=== PATIENT | male | born 1940 | race African-American/Black ===

== ENCOUNTER 2019-07-21 03:34 | Inpatient (IN) | payer BC, MEDICARE ==
[2019-07-21] VITALS (7 sets, daily range): BP systolic 135–180; BP diastolic 68–90
[~2019-07-21] VITALS: Ht 165.1 cm; Wt 79.8 kg
--- NOTE | 2019-07-21 03:53 | NUR ---
ED Nurse Note: Patient was BIBA RA 834 from home, due to gen weakness. Patient states fell 4 days ago and was not able to get up. Patient presented weak, AAO x4, VSS at this time, dehydrated.
[2019-07-21 03:55] LABS: BASOPHILS % (AUTO) 3.1 % (0.0-2.0); EOSINOPHILS % (AUTO) 2.2 % (0.0-3.0); HEMATOCRIT 42.4 % (42.0-52.0); HEMOGLOBIN 14.3 G/DL (14.2-18.0); LYMPHOCYTES % (AUTO) 18.4 % (20.0-45.0); MEAN CORPUSCULAR VOLUME 92 FL (80-99); NEUTROPHILS % (AUTO) 68.4 % (45.0-75.0); PLATELET COUNT 329 K/UL (150-450); RED BLOOD COUNT 4.63 M/UL (4.70-6.10); RED CELL DISTRIBUTION WIDTH 11.4 % (11.6-14.8); WHITE BLOOD COUNT 7.9 K/UL (4.8-10.8)
[2019-07-21 04:03] LABS: ANION GAP 15 mmol/L (5-15); BLOOD UREA NITROGEN 47 mg/dL (7-18); CALCIUM 9.3 MG/DL (8.5-10.1); CARBON DIOXIDE 22 MMOL/L (21-32); CHLORIDE 101 MMOL/L (98-107); CREATININE 2.3 MG/DL (0.55-1.30); SODIUM 138 MMOL/L (136-145)
[2019-07-21 04:18] LABS: ALANINE AMINOTRANSFERASE 41 U/L (12-78); ALBUMIN 4.1 G/DL (3.4-5.0); ALBUMIN/GLOBULIN RATIO 0.9 (1.0-2.7); ALKALINE PHOSPHATASE 85 U/L (46-116); ASPARTATE AMINO TRANSFERASE 78 U/L (15-37); BILIRUBIN,TOTAL 1.2 MG/DL (0.2-1.0); CKMB 19.6 NG/ML (0.0-3.6); CREATINE KINASE 2257 U/L (26-308); PHOSPHORUS 4.4 MG/DL (2.5-4.9)
[2019-07-21 04:31] LABS: BILIRUBIN,DIRECT 0.2 MG/DL (0.0-0.3)
--- NOTE | 2019-07-21 04:32 | Emergency Room Report ---
History of Present Illness General Chief Complaint: Generalized Weakness Source: Patient, EMS Present Illness HPI 79-year-old male presents with generalized weakness, patient reports that 4 days ago, he felt very weak had to lie down on the floor and can get up, he has been lying on the floor for 4 days until neighbors called 911 he denies any chest pain shortness of breath he states he feels generalized weakness he is able to move all 4 extremities per the patient severity is moderate, constant no known aggravating or alleviating factors patient denies any fevers or chills Allergies: Coded Allergies: No Known Allergies (Unverified , 07/21/19) Patient History Past Medical History: see triage record Reviewed Nursing Documentation: PMH: Agreed; PSxH: Agreed Nursing Documentation-PMH Past Medical History: No Stated History Review of Systems All Other Systems: negative except mentioned in HPI Physical Exam Vital Signs Date Time Temp Pulse Resp B/P (MAP) Pulse Ox O2 Delivery O2 Flow Rate FiO2 07/21/19 03:26 98.4 86 20 180/90 (120) 98 Room Air Sp02 EP Interpretation: reviewed, normal General Appearance: well appearing, no apparent distress, alert Head: normocephalic, atraumatic Eyes: bilateral eye PERRL, bilateral eye EOMI ENT: uvula midline, dry mucus membranes Neck: supple, thyroid normal, supple/symm/no masses Respiratory: lungs clear, no respiratory distress, no retraction, no accessory muscle use Cardiovascular #1: normal peripheral pulses, regular rate, rhythm, no edema, no gallop, no murmur Gastrointestinal: non tender, soft, no guarding, no rebound Musculoskeletal: normal inspection Neurologic: alert, oriented x3 Psychiatric: mood/affect normal Skin: no rash, warm/dry Medical Decision Making Diagnostic Impression: Primary Impression: Episode of generalized weakness Additional Impressions: Dehydration Rhabdomyolysis Qualified Codes: M62.82 - Rhabdomyolysis JERMAINE (acute kidney injury) ER Course 79-year-old male found down, unable to get up without assistance Patient found to have rhabdomyolysis, fluid started, patient with JERMAINE Patient will be admitted to Dr. Dalton Laboratory Tests Test 07/21/19 03:43 07/21/19 04:04 White Blood Count 7.9 K/UL (4.8-10.8) Red Blood Count 4.63 M/UL (4.70-6.10) L Hemoglobin 14.3 G/DL (14.2-18.0) Hematocrit 42.4 % (42.0-52.0) Mean Corpuscular Volume 92 FL (80-99) Mean Corpuscular Hemoglobin 30.8 PG (27.0-31.0) Mean Corpuscular Hemoglobin Concent 33.7 G/DL (32.0-36.0) Red Cell Distribution Width 11.4 % (11.6-14.8) L Platelet Count 329 K/UL (150-450) Mean Platelet Volume 6.9 FL (6.5-10.1) Neutrophils (%) (Auto) 68.4 % (45.0-75.0) Lymphocytes (%) (Auto) 18.4 % (20.0-45.0) L Monocytes (%) (Auto) 8.0 % (1.0-10.0) Eosinophils (%) (Auto) 2.2 % (0.0-3.0) Basophils (%) (Auto) 3.1 % (0.0-2.0) H Prothrombin Time 10.6 SEC (9.30-11.50) Prothrombin Time INR 1.0 (0.9-1.1) PTT 27 SEC (23-33) Sodium Level 138 MMOL/L (136-145) Potassium Level 4.0 MMOL/L (3.5-5.1) Chloride Level 101 MMOL/L (98-107) Carbon Dioxide Level 22 MMOL/L (21-32) Anion Gap 15 mmol/L (5-15) Blood Urea Nitrogen 47 mg/dL (7-18) H Creatinine 2.3 MG/DL (0.55-1.30) H Estimate Glomerular Filtration Rate mL/min (>60) Glucose Level 103 MG/DL (74-106) Calcium Level 9.3 MG/DL (8.5-10.1) Phosphorus Level 4.4 MG/DL (2.5-4.9) Magnesium Level 2.1 MG/DL (1.8-2.4) Total Bilirubin 1.2 MG/DL (0.2-1.0) H Direct Bilirubin 0.2 MG/DL (0.0-0.3) Aspartate Amino Transferase (AST) 78 U/L (15-37) H Alanine Aminotransferase (ALT) 41 U/L (12-78) Alkaline Phosphatase 85 U/L (46-116) Total Creatine Kinase 2257 U/L (26-308) H Creatine Kinase MB 19.6 NG/ML (0.0-3.6) H Creatine Kinase MB Relative Index 0.8 Troponin I 0.027 ng/mL (0.000-0.056) Pro-B-Type Natriuretic Peptide 252 pg/mL (0-125) H Total Protein 8.7 G/DL (6.4-8.2) H Albumin 4.1 G/DL (3.4-5.0) Globulin 4.6 g/dL Albumin/Globulin Ratio 0.9 (1.0-2.7) L Lipase 177 U/L (73-393) Thyroid Stimulating Hormone (TSH) 1.263 uiU/mL (0.358-3.740) Free Thyroxine 1.07 NG/DL (0.76-1.46) Free Triiodothyronine 1.9 pg/mL (2.3-4.2) L Lactic Acid Level 2.10 mmol/L (0.4-2.0) H EKG Diagnostic Results EKG Time: 03:37 EP Interpretation: NSR, rate 78, QTc 460, no acute ST elevations, normal axis Rhythm Strip Diag. Results Rhythm Strip Time: 04:32 EP Interpretation: yes Rate: 76 Rhythm: NSR, no PVC's, no ectopy Chest X-Ray Diagnostic Results Chest X-Ray Diagnostic Results : Chest X-Ray Ordered: Yes # of Views/Limited/Complete: 1 View Indication: Other - weakness EP Interpretation: Yes Interpretation: no consolidation, no effusion, no pneumothorax, no acute cardiopulmonary disease Impression: No acute disease Electronically Signed by: Tico Lopez MD Last Vital Signs Date Time Temp Pulse Resp B/P (MAP) Pulse Ox O2 Delivery O2 Flow Rate FiO2 07/21/19 03:45 98.4 81 20 180/90 98 Room Air Disposition: ADMITTED INPATIENT Condition: Stable Referrals: [facility],REFERRING (PCP) Tico Lopez MD Jul 21, 2019 04:32
[2019-07-21] MEDS ORDERED: Labetalol 5mg/ml 20ml vial IV ONE (06:00)
--- NOTE | 2019-07-21 07:00 | NUR ---
ED Nurse Note: Received pt on bed, lying on supine position. Pt is AOx4; VSS except for elevated SBP of 187. Pt is calm and cooperative. Obtained urine specimen via straight cath; sent to labs. Latest SBP went to 167. Placed bed on low position.
--- NOTE | 2019-07-21 07:10 | NUR ---
HAND-OFF: Report given to ARELY Boss.
[2019-07-21 07:24] LABS: APPEARANCE,URINE CLEAR; BILIRUBIN, URINE NEGATIVE (NEGATIVE); COLOR,URINE PALE YELLOW; GLUCOSE, URINE (UA) NEGATIVE (NEGATIVE); KETONES,URINE 3+ (NEGATIVE); LEUKOCYTE ESTERASE ,URINE NEGATIVE (NEGATIVE); NITRITE,URINE NEGATIVE (NEGATIVE); PH,URINE 5 (4.5-8.0); PROTEIN,URINE 2+ (NEGATIVE); UROBILINOGEN,URINE NORMAL MG/DL (0.0-1.0)
--- NOTE | 2019-07-21 07:55 | NUR ---
ED Nurse Note: followed up lab. spoke with Odilia with the added orders
[2019-07-21] MEDS: Sodium Bicarbonate 50 ML in D5W 1000ml 1,000 ML IV SCH ×4 (08:20→22:45)
--- NOTE | 2019-07-21 08:22 | NUR ---
ED Nurse Note: spoke with Ravindra from lab to follow up with the addedd order for urine
--- NOTE | 2019-07-21 08:45 | NUR ---
ED Nurse Note: Dr. Dalton at bedside.
--- NOTE | 2019-07-21 08:59 | History & Physical ---
History and Physical History & Physicial dict dehydration JERMAINE rhabdo possible MM HTN Nikolas Dalton MD Jul 21, 2019 08:59
--- NOTE | 2019-07-21 09:07 | NUR ---
ED Nurse Note: Pt seen by Dr. Bethea.
[2019-07-21 10:15] LABS: ANION GAP 11 mmol/L (5-15); BLOOD UREA NITROGEN 38 mg/dL (7-18); CALCIUM 8.1 MG/DL (8.5-10.1); CARBON DIOXIDE 22 MMOL/L (21-32); CHLORIDE 107 MMOL/L (98-107); CREATINE KINASE 1772 U/L (26-308); CREATININE 1.9 MG/DL (0.55-1.30); POTASSIUM 3.6 MMOL/L (3.5-5.1); SODIUM 140 MMOL/L (136-145)
--- NOTE | 2019-07-21 11:00 | NUR ---
ED Nurse Note: Performed bladder scanner with 182ml residual.
--- NOTE | 2019-07-21 14:20 | NUR ---
ED Nurse Note: spoke with devonte joseph( landlord of the patient). with pt.'s permission, gave clinical updates to her. best number to reach her is @
--- NOTE | 2019-07-21 14:28 | NUR ---
TRANSFER TO FLOOR: Patient transferred to as ordered, per Krystle Whitaker Report given to Jovanny MCGEE. Belongings and medications given to receiving nurse. Family and or S/O informed of transfer.
--- NOTE | 2019-07-21 14:37 | Diagnostic Imaging Report ---
. Indication: Shortness of breath Technique: One view of the chest Comparison: none Findings: The right hemidiaphragm is elevated. The heart is upper limits of normal in size. There is some atelectasis at the left lung base. Lungs pleural spaces are otherwise clear. Impression: Left basilar atelectasis No acute process otherwise
--- NOTE | 2019-07-21 14:45 | History and Physical Report ---
DATE OF ADMISSION: 07/21/2019 HISTORY OF PRESENT ILLNESS: This 79-year-old man came to the emergency department by paramedics when his neighbors called 911. The patient states that he had to lie down on the floor and could not get up for the past 4 days. He could not get to a phone to call anyone. He has generalized weakness, but no specific complaints. He has no pain and no difficulty breathing. He has no nausea or vomiting. He has had nothing to eat or drink in 4 days. PAST MEDICAL HISTORY: He says he has not been to a doctor since 1963. He takes no medications and has no history of allergies or operations. He is and has 1 child with whom he is not in touch. REVIEW OF SYSTEMS: Otherwise unremarkable. PHYSICAL EXAMINATION: VITAL SIGNS: The blood pressure is elevated. GENERAL: He is well developed and appears well-nourished. HEENT: Mucous membranes are dry. The head is normocephalic. NECK: No jugular venous distention. CHEST: Clear. CARDIAC: Rhythm is regular without murmur or gallop. ABDOMEN: Soft and nontender. Liver and spleen not enlarged. EXTREMITIES: No clubbing, cyanosis, or edema. NEUROLOGIC: Alert and oriented. Moves all extremities. LABORATORY STUDIES: Notable for elevated BUN, creatinine, and CPK. Total protein is elevated. Urinalysis shows some ketones and protein. The white count is normal. Platelets are normal. Hemoglobin is 14.3. Lactate was elevated, but improved to normal. Albumin is 4.1. TSH is normal. IMPRESSION: 1. Dehydration. 2. Acute rhabdomyolysis. 3. Hyperproteinemia, possible myeloma. 4. Lactic acidosis, resolved. 5. Hypertension. PLAN: The patient will be given intravenous fluids and antihypertensives. Nephrology consultation was requested. Protein electrophoresis will be obtained. Nikolas Dalton M.D. DR: BEN JOB#: [id number] CC: Nikolas Dalton M.D.; Fax#: [phone]
--- NOTE | 2019-07-21 15:00 | Consultation ---
DATE OF CONSULTATION: 07/21/2019 NEPHROLOGY CONSULTATION CONSULTING PHYSICIAN: Arthur Bethea M.D. REFERRING PHYSICIAN: Nikolas Dalton M.D. REASON FOR CONSULTATION: Abnormal renal function. HISTORY OF PRESENT ILLNESS: The patient is a 79-year-old male, who has generally been in good health, lives by himself. He has not seen a doctor for quite some time. He apparently had a ground-level fall at home. He lives on the ground floor. Apparently for days, not eating or drinking, very weak and for this reason he was brought to the hospital and was found to have abnormal labs. ALLERGIES: None known. PAST SURGICAL HISTORY: Surgeries, denies. MEDICATIONS: No regular medications. He takes aspirin, p.r.n. HABITS: He is a nondrinker and nonsmoker. No use of illicit drugs. SYSTEM REVIEW: HEAD, EYES, EARS, NOSE, AND THROAT: Vision and hearing is good. ENDOCRINE: He is not aware of any diabetes or thyroid disease. PULMONARY: No asthma, TB, or chronic cough. CARDIAC: No angina or LA that he is aware of. GASTROINTESTINAL: He has not eaten for few days. Denies nausea, vomiting, or abdominal pain. GENITOURINARY: Denies dysuria, hematuria, or difficulty voiding. HEME-ONCOLOGY: Denies cancer or bleeding problems. MUSCULOSKELETAL: Denies chronic joint pain. NEUROLOGIC: Denies seizures, syncope, or stroke. PHYSICAL EXAMINATION: VITAL SIGNS: The patient was seen in the emergency room. His blood pressure was 233/107, has come to 167/68 with a pulse oximetry 100, heart rate 93, and temperature 98.4. HEAD, EYES, EARS, NOSE, AND THROAT: Sclerae are nonicteric. Ocular motions intact in all directions. Oral mucosa is slightly dry. NECK: No adenopathy or thyroid enlargement. LUNGS: Clear. HEART: Regular rhythm. No murmur. ABDOMEN: Soft without organomegaly or masses. GENITOURINARY: Penis and testes normal. EXTREMITIES: No edema, cyanosis, or clubbing. No evidence of trauma. NEUROLOGIC: He is alert and oriented. Cranial nerves are intact. No focal findings. PERTINENT LABORATORY DATA: White count 7.9, hemoglobin 14.3. Sodium 138, potassium 4, chloride 101, CO2 22, BUN 47, and creatinine 2.3. Glucose 103. Lactic acid 2.1 and 1.6 serially. Bilirubin 1.2. AST 78, ALT 41. CK 2257. Troponin 0.027. BNP 252. Albumin is 4.1. TSH 1.263. Urinalysis shows 0 to 2 white cells, 0 to 2 red cells per high-power field. Positive ketones, positive protein. The urine sodium 115, urine creatinine 125. IMPRESSION: 1. Acute kidney injury, likely from dehydration and/or rhabdomyolysis. 2. Ground-level fall. 3. Generalized weakness. 4. Incomplete database. 5. Abnormal urinalysis likely secondary to rhabdomyolysis. PLAN: The patient will get vigorous hydration with bicarbonate-containing fluids. We will monitor his I and O, serial labs, and follow closely in view of comorbidities. Arthur Bethea M.D. DR: PAOLA JOB#: [id number] CC:
--- NOTE | 2019-07-21 15:00 | NUR ---
NURSE NOTES: Late entry for 07/21/10 Received patient from ER. Patient is alert and oriented x2 @ this time, forgetful and unable to obtain past medical history.There is a family member in the contact but no phone number. Patient denies any pain or discomfort @ this time. orientation given about the unit, call light use, meal times, fall precautions, etc. Skin assessment done, no skin issue. All belongings were checked and accounted for. IV on right AC intact, no s/s of infiltration with IVF.Bed is in lowest position and locked, call light within reach, alarm is on due to h/o fall. Will continue plan of care.
[2019-07-21 17:30] LABS: ANION GAP 12 mmol/L (5-15); BLOOD UREA NITROGEN 35 mg/dL (7-18); CALCIUM 8.1 MG/DL (8.5-10.1); CARBON DIOXIDE 25 MMOL/L (21-32); CHLORIDE 108 MMOL/L (98-107); CREATINE KINASE 1687 U/L (26-308); CREATININE 1.7 MG/DL (0.55-1.30); POTASSIUM 3.4 MMOL/L (3.5-5.1); SODIUM 145 MMOL/L (136-145)
--- NOTE | 2019-07-21 17:30 | NUR ---
NURSE NOTES: Per ER nurse Karyn,she collected urine and swab for influenza A&B but no specimen in the lab. RN sent influenza A&B swab to lab and still waiting for urine specimen for protein electroph random. patient urinated earlier but he was incontinent, unable to collect urine.Will follow up.
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
--- NOTE | 2019-07-21 18:55 | NUR ---
NURSE NOTES: RN left a message to Dr. Dalton for medication for anxiety since patient is combative and anxious. Awaiting for return call.
--- NOTE | 2019-07-21 19:00 | NUR ---
NURSE NOTES: Unable to administer potassium po due to patient is combative and agitated.
--- NOTE | 2019-07-21 19:35 | NUR ---
HAND-OFF: Report given to Cipriano and endorsed to monitor patient's behavior and follow up with doctor.
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
--- NOTE | 2019-07-21 22:00 | NUR ---
NURSE NOTES: Pt is very agitated and uncooperative. Pt refused to take Seroquel and potassium chloride tablet po that was ordered despite education and encouragement. D5W with sodium bicarbonate running at 200ml/hr. Bilateral soft wrist restraints on, restrains site asymptomatic, pt offered food hydration. Pt allowed to have range of motion. Pt is still agitated and uncooperative during interactions. Pt will be repositioned frequently. Pt refused SCDs. Pt will be monitored for safety.
[2019-07-22] VITALS (7 sets, daily range): BP systolic 159–234; BP diastolic 87–116
[2019-07-22] MEDS: Sodium Bicarbonate 50 ML in D5W 1000ml 1,000 ML IV SCH ×5 (02:15→22:23)
--- NOTE | 2019-07-22 05:28 | NUR ---
NURSE NOTES: Pt's BP 185/90. Dr. Cervantes is called, received order to give hydralazine 25mg po once.
[2019-07-22] MEDS ORDERED: HydrALAZINE 25mg tab ORAL ONE (05:30)
--- NOTE | 2019-07-22 05:37 | NUR ---
NURSE NOTES: Pt refused hydralazine 25mg po despite education and encouragement. Dr. Cervantes is aware.
--- NOTE | 2019-07-22 06:51 | NUR ---
NURSE NOTES: Dr. Bethea came to see the patient. Doctor made aware about pt's refusal to take oral BP Meds. Doctor said he will order some clonidine patch.
--- NOTE | 2019-07-22 07:25 | NUR ---
HAND-OFF: Report given to ARELY Kwong.
[2019-07-22 07:26] LABS: BASOPHILS % (AUTO) 3.5 % (0.0-2.0); EOSINOPHILS % (AUTO) 1.9 % (0.0-3.0); HEMATOCRIT 37.8 % (42.0-52.0); HEMOGLOBIN 13.1 G/DL (14.2-18.0); LYMPHOCYTES % (AUTO) 13.7 % (20.0-45.0); MEAN CORPUSCULAR VOLUME 91 FL (80-99); MONOCYTES % (AUTO) 12.8 % (1.0-10.0); NEUTROPHILS % (AUTO) 68.2 % (45.0-75.0); PLATELET COUNT 292 K/UL (150-450); RED BLOOD COUNT 4.17 M/UL (4.70-6.10); RED CELL DISTRIBUTION WIDTH 12.2 % (11.6-14.8); WHITE BLOOD COUNT 7.9 K/UL (4.8-10.8)
--- NOTE | 2019-07-22 07:53 | NUR ---
CASE MANAGEMENT: INITIAL REVIEW 79 YR OLD MALE BIBA FROM HOME CC: GENERALIZED WEAKNESS SI: RHABDOMYOLYSIS . JERMAINE . DEHYDRATION . FAILURE TO THRIVE . WEAKNESS 98.4 86 20 180/90 98% ON RA BUN 47 CREAT 2.3 TBIL 1.2 TCK 2257 CK-MB 19.6 BNP 252 IS:IVF NS BOLUS X3 IV HYDRALAZINE X1 IV LABETALOL X1 CXRAY X1 \: 4E MED SURG DCP: HOME WHEN MEDICALLY STABLE PLAN: IV HYDRATION CASE MANAGEMENT: REVIEW 07/22/19 SI: RHABDOMYOLYSIS . JERMAINE . DEHYDRATION . FAILURE TO THRIVE . WEAKNESS 98.8 84 20 220/110 95% ON RA CK 2240 K+ 3.3 BUN 21 CREAT 1.8 BG 132 TBIL 1.1 IS:IV NA BICARBONATE X1 CATAPRES TD QWK \: 4E MED SURG DCP: HOME WHEN MEDICALLY STABLE PLAN: CONT INTRAVENOUS FLUIDS CONT ANTIHYPERTENSIVE MEDS
--- NOTE | 2019-07-22 08:00 | Nephrology Progress Note ---
Assessment/Plan Problem List: (1) Hypertension, benign (2) Toxic metabolic encephalopathy (3) Gait abnormality (4) Rhabdomyolysis (5) JERMAINE (acute kidney injury) (6) Dehydration (7) Episode of generalized weakness Plan f/u lab, hydrate, mobilize, try to get coop to po meds Subjective Constitutional: Reports: weakness HEENT: Reports: no symptoms Genitourinary: Reports: no symptoms Neurologic/Psychiatric: Reports: other - confused and agitated Objective Objective Last 24 Hour Vital Signs Date Time Temp Pulse Resp B/P (MAP) Pulse Ox O2 Delivery O2 Flow Rate FiO2 07/22/19 05:37 185/90 07/22/19 04:00 98.8 86 19 185/90 (121) 96 07/22/19 00:00 97.8 84 19 159/87 (111) 97 07/21/19 21:00 Room Air 07/21/19 20:00 98.1 91 18 157/83 (107) 95 07/21/19 16:00 98.1 75 16 135/70 (91) 95 07/21/19 15:28 98.1 85 16 157/73 (101) 95 07/21/19 15:17 Room Air 07/21/19 14:28 98.4 76 18 156/77 98 Room Air 07/21/19 14:00 98.4 76 18 156/77 98 Room Air 07/21/19 08:00 98.4 93 26 167/68 100 Room Air Intake and Output 07/21/19 07/22/19 19:00 07:00 Intake Total 4100 ml 4440 ml Output Total 400 ml 1700 ml Balance 3700 ml 2740 ml Intake Oral 240 ml IV Total 4100 ml 3200 ml Other 1000 ml Output Urine Total 400 ml 1700 ml # Voids 3 Laboratory Tests 07/21/19 09:32: Sodium Level 140, Potassium Level 3.6, Chloride Level 107, Carbon Dioxide Level 22, Anion Gap 11, Blood Urea Nitrogen 38H, Creatinine 1.9H, Estimat Glomerular Filtration Rate , Glucose Level 109H, Calcium Level 8.1L, Total Creatine Kinase 1772H 07/21/19 16:04: Sodium Level 145, Potassium Level 3.4L, Chloride Level 108H, Carbon Dioxide Level 25, Anion Gap 12, Blood Urea Nitrogen 35H, Creatinine 1.7H, Estimat Glomerular Filtration Rate , Glucose Level 148H, Calcium Level 8.1L, Total Creatine Kinase 1687H 07/22/19 03:30: Urine Total Protein [Pending], Urine Albumin (%) [Pending], Urine Alpha-1- Globulins (%) [Pending], Urine Gugkr-8-Ukomvcqkg (%) [Pending], Urine Beta- Globulin (%) [Pending], Urine Gamma Globulin (%) [Pending], Ur Protein Electrophoresis M-Conrad [Pending], Urine Protein Electrophoresis Intrp [Pending] 07/22/19 07:07: Sodium Level [Pending], Potassium Level [Pending], Chloride Level [Pending], Carbon Dioxide Level [Pending], Blood Urea Nitrogen [Pending], Creatinine [ Pending], Estimat Glomerular Filtration Rate [Pending], Glucose Level [Pending] , Calcium Level [Pending], Total Creatine Kinase [Pending], White Blood Count 7.9, Red Blood Count 4.17L, Hemoglobin 13.1L, Hematocrit 37.8L, Mean Corpuscular Volume 91, Mean Corpuscular Hemoglobin 31.5H, Mean Corpuscular Hemoglobin Concent 34.7, Red Cell Distribution Width 12.2, Platelet Count 292, Mean Platelet Volume 6.6, Neutrophils (%) (Auto) 68.2, Lymphocytes (%) (Auto) 13.7L, Monocytes (%) (Auto) 12.8H, Eosinophils (%) (Auto) 1.9, Basophils (%) ( Auto) 3.5H, Total Bilirubin [Pending], Aspartate Amino Transf (AST/SGOT) [ Pending], Alanine Aminotransferase (ALT/SGPT) [Pending], Alkaline Phosphatase [ Pending], Total Protein [Pending], Albumin [Pending], Globulin [Pending] Height (Feet): 5 Height (Inches): 5.00 Weight (Pounds): 179 General Appearance: no apparent distress, confused EENT: normal ENT inspection Neck: normal alignment Cardiovascular: normal rate Respiratory/Chest: lungs clear Abdomen: non tender Extremities: no edema Neurologic: cream hauler II-XII grossly normal Arthur Bethea MD Jul 22, 2019 08:00
[2019-07-22 08:02] LABS: ALANINE AMINOTRANSFERASE 46 U/L (12-78); ALBUMIN 3.5 G/DL (3.4-5.0); ALBUMIN/GLOBULIN RATIO 0.8 (1.0-2.7); ALKALINE PHOSPHATASE 71 U/L (46-116); ANION GAP 11 mmol/L (5-15); ASPARTATE AMINO TRANSFERASE 78 U/L (15-37); BILIRUBIN,TOTAL 1.1 MG/DL (0.2-1.0); BLOOD UREA NITROGEN 21 mg/dL (7-18); CALCIUM 8.8 MG/DL (8.5-10.1); CARBON DIOXIDE 25 MMOL/L (21-32); CHLORIDE 104 MMOL/L (98-107); CREATINE KINASE 2240 U/L (26-308); CREATININE 1.8 MG/DL (0.55-1.30); POTASSIUM 3.3 MMOL/L (3.5-5.1); SODIUM 140 MMOL/L (136-145)
[2019-07-22 08:06] LABS: BILIRUBIN,DIRECT 0.2 MG/DL (0.0-0.3)
--- NOTE | 2019-07-22 10:04 | NUR ---
NURSE NOTES: Rechecked blood pressure and it was 130/117 and 212 100. Will notify doctor.
--- NOTE | 2019-07-22 10:24 | NUR ---
NURSE NOTES: Microbiology Fatimah called and stated one blood bottle came back positive for gram positive cocci in clusters. Will notify the doctor.
--- NOTE | 2019-07-22 10:43 | NUR ---
NURSE NOTES: MD Dalton was advised of patient consistent elevated blood pressure as well as positive blood gram positive cocci in clusters. New orders placed with instructions to replace catapres patch with new order and give oral blood pressure medications.
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
--- NOTE | 2019-07-22 11:38 | NUR ---
RD ASSESSMENT & RECOMMENDATIONS SEE CARE ACTIVITY FOR COMPLETE ASSESSMENT DAILY ESTIMATED NEEDS: Needs based on cardiac, 66kg abw 25-30 kcals/kg 7818-2411 total kcals 1-1.2 g protein/kg 66-79 g total protein 25-30 mL/kg 4782-2806 total fluid mLs NUTRITION DIAGNOSIS: Altered nutrition related lab values R/T dehydration, HTN, clinical condition as evidenced by elev creat (1.8), elev T bili (1.1), elev BPs (220/110), low K (3.3), elev total creatine kinase (2240). CURRENT DIET:CLEAR LIQUIDS PO DIET RECOMMENDATIONS: LOW NA/ texture as tolerated ADDITIONAL RECOMMENDATIONS: * Calibrated bedscale wt * Advance diet in a timely manner: on CLD at this time, no GI issues * Monitor lytes, replete as needed (low K) * Check A1C: mildly elev BGs (132, 148)
[2019-07-22] MEDS ORDERED: Vancomycin 1.25gm/NS Premix IVPB ONE (13:00)
--- NOTE | 2019-07-22 13:48 | NUR ---
NURSE NOTES: Left message for MD Dalton, patient BP is 189/101.
--- NOTE | 2019-07-22 16:24 | NUR ---
*-* INSURANCE *-* ALL AVAILABLE CLINICALS HAVE BEEN FAXED TO: [facility]#[phone] fax#[phone]
[2019-07-22] MEDS: HydrALAZINE 50mg tab ORAL SCH (17:28)
--- NOTE | 2019-07-22 19:15 | Consultation ---
DATE OF CONSULTATION: 07/22/2019 CONSULTING PHYSICIAN: Nury Mandel M.D. HISTORY OF PRESENT ILLNESS: This is a 79-year-old male who is admitted for multiple medical issues including dehydration and acute rhabdomyolysis. The patient is disoriented and confused, has been hitting staff, refusing all p.o. medications. His blood pressure is high. He is unable to be engaged and answer the questions. He has memory impairment, waxing and waning consciousness. PAST PSYCHIATRIC HISTORY: Unknown. The patient is unable to provide any history. The patient was started on Seroquel in the hospital. His medication reconciliation is not significant for any psychotropic medication. PAST MEDICAL HISTORY: The patient has not been seeing a doctor since 1963. Per chart, he has a history of hypertension, acute kidney injury, and rhabdomyolysis. ALLERGIES: No known drug allergies. SUBSTANCE USE HISTORY: No known history of illicit drug use or alcohol. MENTAL STATUS EXAMINATION: The patient is alert, disoriented to date and situation. Mood is anxious. Affect is flat. Thought process, there is a paucity of thought content. Thought content, no suicidal or homicidal ideation. Cognition is impaired. Insight and judgment is impaired. ASSESSMENT: AXIS I: Acute metabolic encephalopathy. AXIS II: Deferred. AXIS III: Dehydration. AXIS IV: Low. AXIS V: 20. PLAN: 1. We will start the patient on Seroquel p.r.n. He is already on Seroquel standing. 2. We will continue to follow and readjust the medication. Nury Mandel M.D. DR: DORA JOB#: [id number] CC:
--- NOTE | 2019-07-22 20:00 | NUR ---
NURSE NOTES: Pt is in bed, on bilateral soft wrist restraints, skin intact, alert x1, confused. Pt will be monitored for safety. Bed locked low position,side rails up, bed alarm on and call light within reach.
[2019-07-23] VITALS: BP_SYST 145; BP_SYST 170; BP_DIAS 86; BP_DIAS 90
[2019-07-23] MEDS: HydrALAZINE 50mg tab ORAL SCH ×5 (02:23→23:40)
[2019-07-23 04:00] VITALS: BP 145/70
[2019-07-23] MEDS: Sodium Bicarbonate 50 ML in D5W 1000ml 1,000 ML IV SCH (07:29)
[2019-07-23 08:00] VITALS: BP 163/93
--- NOTE | 2019-07-23 08:01 | NUR ---
HAND-OFF: Report given to ARELY Kuo.
--- NOTE | 2019-07-23 08:09 | NUR ---
NURSE NOTES: Patient awake, alert x1, confused, combative; on room air, no sing of distress and shortness of breath; no sing of chest pain; Bilateral soft wrist restrains in place; side rails up x2, breaks engaged, bed at lowest position, bed alarm on; IV Right AC 20G Sodium Bicarbonate D5W running at 150cc; will keep monitoring.
[2019-07-23 08:36] LABS: BASOPHILS % (AUTO) 1.3 % (0.0-2.0); EOSINOPHILS % (AUTO) 3.8 % (0.0-3.0); HEMATOCRIT 40.5 % (42.0-52.0); HEMOGLOBIN 13.7 G/DL (14.2-18.0); MEAN CORPUSCULAR VOLUME 91 FL (80-99); MONOCYTES % (AUTO) 10.1 % (1.0-10.0); NEUTROPHILS % (AUTO) 66.8 % (45.0-75.0); PLATELET COUNT 295 K/UL (150-450); RED BLOOD COUNT 4.45 M/UL (4.70-6.10); RED CELL DISTRIBUTION WIDTH 11.8 % (11.6-14.8)
[2019-07-23 08:53] LABS: AMMONIA < 10 umol/L (11-32)
[2019-07-23 08:57] LABS: ALANINE AMINOTRANSFERASE 44 U/L (12-78); ALBUMIN 3.2 G/DL (3.4-5.0); ALBUMIN/GLOBULIN RATIO 0.8 (1.0-2.7); ALKALINE PHOSPHATASE 66 U/L (46-116); ANION GAP 10 mmol/L (5-15); ASPARTATE AMINO TRANSFERASE 56 U/L (15-37); BLOOD UREA NITROGEN 13 mg/dL (7-18); CALCIUM 8.8 MG/DL (8.5-10.1); CARBON DIOXIDE 28 MMOL/L (21-32); CHLORIDE 108 MMOL/L (98-107); CREATINE KINASE 1236 U/L (26-308); CREATININE 1.4 MG/DL (0.55-1.30); POTASSIUM 3.4 MMOL/L (3.5-5.1); SODIUM 146 MMOL/L (136-145)
[2019-07-23 12:00] VITALS: BP 147/97
--- NOTE | 2019-07-23 12:50 | Nephrology Progress Note ---
Assessment/Plan Problem List: (1) Hypertension, benign (2) Toxic metabolic encephalopathy (3) Gait abnormality (4) Rhabdomyolysis (5) JERMAINE (acute kidney injury) (6) Dehydration (7) Episode of generalized weakness (8) Bacteremia due to Staphylococcus Plan f/u lab, hydrate, mobilize, try to get coop to po meds vanco pend final culture Subjective ROS Limited/Unobtainable: Yes Objective Objective Last 24 Hour Vital Signs Date Time Temp Pulse Resp B/P (MAP) Pulse Ox O2 Delivery O2 Flow Rate FiO2 07/23/19 12:00 96.8 78 19 147/97 (114) 98 07/23/19 09:02 82 163/93 07/23/19 09:00 Room Air 07/23/19 08:00 96.5 82 19 163/93 (116) 97 07/23/19 06:00 136/72 07/23/19 04:00 97.5 69 19 145/70 (95) 93 07/23/19 02:23 170/90 07/23/19 00:00 97.2 75 18 170/90 (116) 97 07/22/19 21:00 Room Air 07/22/19 20:22 98.5 85 20 196/91 (126) 94 07/22/19 17:28 196/91 07/22/19 16:00 98.5 85 20 196/91 (126) 94 07/22/19 13:47 189/101 (130) Intake and Output 07/22/19 07/23/19 19:00 07:00 Intake Total 1805.000 ml Output Total 1500 ml 600 ml Balance 305.000 ml -600 ml Intake Oral 1080 ml IV Total 725.000 ml Output Urine Total 1500 ml 600 ml Laboratory Tests 07/23/19 08:10: White Blood Count 6.0, Red Blood Count 4.45L, Hemoglobin 13.7L, Hematocrit 40.5L , Mean Corpuscular Volume 91, Mean Corpuscular Hemoglobin 30.8, Mean Corpuscular Hemoglobin Concent 33.9, Red Cell Distribution Width 11.8, Platelet Count 295, Mean Platelet Volume 6.5, Neutrophils (%) (Auto) 66.8, Lymphocytes (% ) (Auto) 18.0L, Monocytes (%) (Auto) 10.1H, Eosinophils (%) (Auto) 3.8H, Basophils (%) (Auto) 1.3, Sodium Level 146H, Potassium Level 3.4L, Chloride Level 108H, Carbon Dioxide Level 28, Anion Gap 10, Blood Urea Nitrogen 13, Creatinine 1.4H, Estimat Glomerular Filtration Rate , Glucose Level 137H, Calcium Level 8.8, Total Bilirubin 1.0, Aspartate Amino Transf (AST/SGOT) 56H, Alanine Aminotransferase (ALT/SGPT) 44, Alkaline Phosphatase 66, Ammonia < 10L, Total Creatine Kinase 1236H, Total Protein 7.1, Albumin 3.2L, Globulin 3.9, Albumin/Globulin Ratio 0.8L Height (Feet): 5 Height (Inches): 5.00 Weight (Pounds): 180 General Appearance: no apparent distress, lethargic EENT: normal ENT inspection Neck: normal alignment, supple Cardiovascular: regular rhythm Respiratory/Chest: lungs clear Abdomen: non tender Extremities: no edema 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
[2019-07-23] MEDS: Vancomycin 1gm in D5W 275ml IVPB SCH (13:13)
[2019-07-23] MEDS: D5 1/2NS w/KCl 40meq 1000ml 1,000 ML IV SCH ×2 (14:47→23:40)
[2019-07-23 16:00] VITALS: BP 165/88
--- NOTE | 2019-07-23 19:31 | NUR ---
HAND-OFF: Report given to ARELY Morfin.
--- NOTE | 2019-07-23 19:34 | NUR ---
NURSE NOTES: Patient is in bed,awake, alert x1, confused and combative. Breathing on room air, no acute distress noted. Bilateral soft wrist restrains in place. bed at low and locked position, bed alarm on. Will continue to monitor the pt.
--- NOTE | 2019-07-23 19:57 | Pulmonology Progress Note ---
Assessment/Plan Assessment/Plan 1. Dehydration. 2. Acute rhabdomyolysis. 3. Hyperproteinemia, possible myeloma. 4. Lactic acidosis, resolved. 5. Hypertension. 6. Delirium monitor encourage complainance with treatemtn BP control social service, PT eval Subjective ROS Limited/Unobtainable: Yes Allergies: Coded Allergies: No Known Allergies (Unverified , 07/21/19) Subjective in restraints opens eyes nonverbal for me no cp reported Objective Last 24 Hour Vital Signs Date Time Temp Pulse Resp B/P (MAP) Pulse Ox O2 Delivery O2 Flow Rate FiO2 07/23/19 17:16 165/88 07/23/19 16:00 97.0 69 18 165/88 (113) 97 07/23/19 13:13 147/97 07/23/19 12:00 96.8 78 19 147/97 (114) 98 07/23/19 09:02 82 163/93 07/23/19 09:00 Room Air 07/23/19 08:00 96.5 82 19 163/93 (116) 97 07/23/19 06:00 136/72 07/23/19 04:00 97.5 69 19 145/70 (95) 93 07/23/19 02:23 170/90 07/23/19 00:00 97.2 75 18 170/90 (116) 97 07/22/19 21:00 Room Air 07/22/19 20:22 98.5 85 20 196/91 (126) 94 Intake and Output 07/22/19 07/23/19 19:00 07:00 Intake Total 1805.000 ml Output Total 1500 ml 600 ml Balance 305.000 ml -600 ml Intake Oral 1080 ml IV Total 725.000 ml Output Urine Total 1500 ml 600 ml General Appearance: WD/WN Respiratory/Chest: lungs clear Cardiovascular: normal rate, regular rhythm Abdomen: soft, non tender, no organomegaly Neurologic/Psychiatric: alert Microbiology Date/Time Source Procedure Growth Status 07/21/19 03:40 Blood Blood Culture - Preliminary NO GROWTH AFTER 48 HOURS Resulted 07/21/19 03:18 Blood Blood Culture - Preliminary Staphylococcus Species Resulted 07/21/19 17:35 Nasal Nares - Final Complete 07/21/19 17:35 Nasal Nares - Final Complete Laboratory Tests 07/23/19 08:10: White Blood Count 6.0, Red Blood Count 4.45L, Hemoglobin 13.7L, Hematocrit 40.5L , Mean Corpuscular Volume 91, Mean Corpuscular Hemoglobin 30.8, Mean Corpuscular Hemoglobin Concent 33.9, Red Cell Distribution Width 11.8, Platelet Count 295, Mean Platelet Volume 6.5, Neutrophils (%) (Auto) 66.8, Lymphocytes (% ) (Auto) 18.0L, Monocytes (%) (Auto) 10.1H, Eosinophils (%) (Auto) 3.8H, Basophils (%) (Auto) 1.3, Sodium Level 146H, Potassium Level 3.4L, Chloride Level 108H, Carbon Dioxide Level 28, Anion Gap 10, Blood Urea Nitrogen 13, Creatinine 1.4H, Estimat Glomerular Filtration Rate , Glucose Level 137H, Calcium Level 8.8, Total Bilirubin 1.0, Aspartate Amino Transf (AST/SGOT) 56H, Alanine Aminotransferase (ALT/SGPT) 44, Alkaline Phosphatase 66, Ammonia < 10L, Total Creatine Kinase 1236H, Total Protein 7.1, Albumin 3.2L, Globulin 3.9, Albumin/Globulin Ratio 0.8L Current Medications Medications (Trade) Dose Ordered Sig/Hanh Route PRN Reason Start Time Stop Time Status Last Admin Dose Admin Amlodipine Besylate (Norvasc) 10 mg DAILY ORAL 07/22/19 11:30 08/22/19 11:29 07/23/19 09:02 Clonidine HCl (Catapres TTS-3) 1 patch QWEEK TDERMAL 07/22/19 12:00 08/21/19 11:59 07/22/19 11:14 Dextrose/ Electrolytes 1,000 ml @ 100 mls/hr Q10H IV 07/23/19 14:00 08/22/19 13:59 07/23/19 14:47 Hydralazine HCl (Apresoline) 50 mg Q6HR ORAL 07/22/19 18:00 08/21/19 17:59 07/23/19 17:16 Potassium Chloride (K-Dur) 20 meq DAILY ORAL 07/24/19 09:00 08/23/19 08:59 Quetiapine Fumarate (SEROqueL) 25 mg Q6H PRN ORAL For Anxiety 07/22/19 12:45 08/21/19 12:44 Quetiapine Fumarate (SEROqueL) 25 mg QHS ORAL 07/21/19 21:00 08/20/19 20:59 07/22/19 22:22 Vancomycin HCl (Vanco rx to dose) 1 ea DAILY PRN MISC Per rx protocol 07/22/19 10:45 08/21/19 10:44 Vancomycin HCl 1 gm/Dextrose 275 ml @ 183.708 mls/hr Q24H IVPB 07/23/19 14:00 07/28/19 13:59 07/23/19 13:13 Little Flores DO Jul 23, 2019 19:57
[2019-07-23 20:00] VITALS: BP 138/70
[2019-07-24] VITALS: BP 145/86
[2019-07-24 04:00] VITALS: BP_SYST 109; BP_SYST 149; BP_DIAS 70; BP_DIAS 78
[2019-07-24] MEDS: HydrALAZINE 50mg tab ORAL SCH ×3 (05:08→17:17)
[2019-07-24 06:48] LABS: BASOPHILS % (AUTO) 0.9 % (0.0-2.0); EOSINOPHILS % (AUTO) 5.2 % (0.0-3.0); HEMATOCRIT 38.5 % (42.0-52.0); HEMOGLOBIN 12.9 G/DL (14.2-18.0); LYMPHOCYTES % (AUTO) 22.8 % (20.0-45.0); MEAN CORPUSCULAR VOLUME 93 FL (80-99); MONOCYTES % (AUTO) 12.5 % (1.0-10.0); NEUTROPHILS % (AUTO) 58.6 % (45.0-75.0); PLATELET COUNT 258 K/UL (150-450); RED BLOOD COUNT 4.13 M/UL (4.70-6.10); RED CELL DISTRIBUTION WIDTH 11.8 % (11.6-14.8)
--- NOTE | 2019-07-24 07:22 | NUR ---
HAND-OFF: Report given to ARELY Kuo.
--- NOTE | 2019-07-24 07:33 | NUR ---
NURSE NOTES: Patient awake, alert x1, confused; on room air, no sing of distress and shortness of breath; no sing of chest pain; IV Right AC 20G D51/2NS w/kcl 40 mEq running 100cc; Bilateral soft wrist restrain in place; side rails up x2, breaks engaged, bed at lowest position; call light within reach; will keep monitoring.
[2019-07-24 07:35] LABS: ALANINE AMINOTRANSFERASE 39 U/L (12-78); ALBUMIN 2.9 G/DL (3.4-5.0); ALBUMIN/GLOBULIN RATIO 0.7 (1.0-2.7); ALKALINE PHOSPHATASE 61 U/L (46-116); ANION GAP 9 mmol/L (5-15); ASPARTATE AMINO TRANSFERASE 37 U/L (15-37); BILIRUBIN,TOTAL 0.8 MG/DL (0.2-1.0); BLOOD UREA NITROGEN 16 mg/dL (7-18); CALCIUM 8.2 MG/DL (8.5-10.1); CARBON DIOXIDE 26 MMOL/L (21-32); CHLORIDE 110 MMOL/L (98-107); CREATINE KINASE 557 U/L (26-308); CREATININE 1.7 MG/DL (0.55-1.30); PHOSPHORUS 2.9 MG/DL (2.5-4.9); POTASSIUM 3.9 MMOL/L (3.5-5.1); SODIUM 145 MMOL/L (136-145)
[2019-07-24 08:00] VITALS: BP 134/80
--- NOTE | 2019-07-24 09:25 | NUR ---
PT EVALUATION NOTE Patient seen for initial evaluation. Patient presents with generalized weakness and impaired balance which affects patient's ability to perform mobility tasks safely. Patient requires mod/max assist for bed mobility, unstable in sitting at EOB. Patient unable to attempt transfers at this time due to weakness and is at high risk for falls. Patient will benefit from skilled inpatient PT intervention to address strength, balance and safety for improved level of functional mobility. Recommend discharge to ARU/SNF for further rehab once medically cleared by MD as patient lives alone and is at high risk for falls. Patient will benefit from use of FWW for ambulation. Addendum: 07/24/19 at 1112 by AMBER CANTU PT Amended: Links added.
--- NOTE | 2019-07-24 10:47 | NUR ---
CASE MANAGEMENT: REVIEW 07/23/2019 SI: RHABDOMYOLYSIS . JERMAINE . DEHYDRATION .TOXIC METABOLIC ENCEPHALOPATHY 96.5 82 19 163/93 97% ON RA CK 1236 H/H 13.7/40.5 NA+ 146 K+3.4 CREAT 1.4 BG 137 IS:IV NA BICARBONATE @50ML/HR IV VANCOMYCIN Q24HR IV D5 @100ML/HR K-DUR PO QD NORVASC PO QD HYDRALAZINE PO Q6HR CATAPRES TD QWK \: 4E MED SURG DCP: HOME WHEN MEDICALLY STABLE PLAN: CONT INTRAVENOUS FLUIDS CONT ANTIHYPERTENSIVE MEDS CASE MANAGEMENT: REVIEW 07/24/2019 SI: RHABDOMYOLYSIS . JERMAINE . DEHYDRATION .TOXIC METABOLIC ENCEPHALOPATHY 97.3 76 19 134/80 96% ON RA CK 557 CL- 110 CREAT 1.7 CA+8.2 H/H 12.9/38.5 IS:IV VANCOMYCIN Q24HR IV D5 @100ML/HR K-DUR PO QD NORVASC PO QD HYDRALAZINE PO Q6HR CATAPRES TD QWK \: 4E MED SURG DCP: HOME WHEN MEDICALLY STABLE PLAN: LOCATE FAMILY CONT INTRAVENOUS FLUIDS CONT ANTIHYPERTENSIVE MEDS
--- NOTE | 2019-07-24 11:42 | NUR ---
*-* INSURANCE *-* ALL AVAILABLE CLINICALS HAVE BEEN FAXED TO: [facility]#[phone] fax#[phone]
[2019-07-24 12:00] VITALS: BP 158/87
[2019-07-24] MEDS: D5 1/2NS w/KCl 40meq 1000ml 1,000 ML IV SCH (12:19)
[2019-07-24] MEDS: Vancomycin 1gm in D5W 275ml IVPB SCH (13:13)
--- NOTE | 2019-07-24 14:12 | Nephrology Progress Note ---
Assessment/Plan Problem List: (1) Hypertension, benign (2) Toxic metabolic encephalopathy (3) Gait abnormality (4) Rhabdomyolysis (5) JERMAINE (acute kidney injury) (6) Dehydration (7) Episode of generalized weakness (8) Bacteremia due to Staphylococcus Plan f/u lab, hydrate, mobilize, try to get coop to po meds lab trend better Subjective ROS Limited/Unobtainable: Yes Objective Objective Last 24 Hour Vital Signs Date Time Temp Pulse Resp B/P (MAP) Pulse Ox O2 Delivery O2 Flow Rate FiO2 07/24/19 12:19 158/87 07/24/19 12:00 97.5 88 19 158/87 (110) 98 07/24/19 09:00 Room Air 07/24/19 08:48 76 134/80 07/24/19 08:00 97.3 76 19 134/80 (98) 96 07/24/19 05:08 149/78 07/24/19 04:00 97.4 68 18 149/78 (101) 98 07/24/19 00:00 96.4 70 18 145/86 (105) 98 07/23/19 23:40 145/86 07/23/19 21:00 Room Air 07/23/19 20:00 96.4 70 18 138/70 (92) 98 07/23/19 17:16 165/88 07/23/19 16:00 97.0 69 18 165/88 (113) 97 Intake and Output 07/23/19 07/24/19 19:00 07:00 Intake Total 1607.416 ml 900 ml Output Total 600 ml Balance 1607.416 ml 300 ml Intake Oral 240 ml IV Total 1367.416 ml 900 ml Output Urine Total 600 ml Laboratory Tests 07/24/19 05:20: White Blood Count 7.0, Red Blood Count 4.13L, Hemoglobin 12.9L, Hematocrit 38.5L , Mean Corpuscular Volume 93, Mean Corpuscular Hemoglobin 31.2H, Mean Corpuscular Hemoglobin Concent 33.5, Red Cell Distribution Width 11.8, Platelet Count 258, Mean Platelet Volume 6.9, Neutrophils (%) (Auto) 58.6, Lymphocytes (% ) (Auto) 22.8, Monocytes (%) (Auto) 12.5H, Eosinophils (%) (Auto) 5.2H, Basophils (%) (Auto) 0.9, Sodium Level 145, Potassium Level 3.9, Chloride Level 110H, Carbon Dioxide Level 26, Anion Gap 9, Blood Urea Nitrogen 16, Creatinine 1.7H, Estimat Glomerular Filtration Rate , Glucose Level 110H, Calcium Level 8.2L, Phosphorus Level 2.9, Magnesium Level 1.9, Total Bilirubin 0.8, Aspartate Amino Transf (AST/SGOT) 37, Alanine Aminotransferase (ALT/SGPT) 39, Alkaline Phosphatase 61, Total Creatine Kinase 557H, Total Protein 6.8, Albumin 2.9L, Globulin 3.9, Albumin/Globulin Ratio 0.7L Height (Feet): 5 Height (Inches): 5.00 Weight (Pounds): 180 General Appearance: no apparent distress EENT: normal ENT inspection Neck: normal alignment Cardiovascular: normal rate Respiratory/Chest: lungs clear Abdomen: non tender, soft Extremities: no edema Neurologic: other - sedated, sleepy Arthur Bethea MD Jul 24, 2019 14:12
[2019-07-24] MEDS ORDERED: D5 1/2NS w/KCl 40meq 1000ml 1,000 ML IV SCH (14:15)
[2019-07-24 16:00] VITALS: BP 136/72
--- NOTE | 2019-07-24 17:19 | Pulmonology Progress Note ---
Assessment/Plan Problems: (1) Rhabdomyolysis (2) JERMAINE (acute kidney injury) (3) Dehydration (4) Episode of generalized weakness (5) Weakness (6) Gait abnormality (7) Failure to thrive in adult (8) Hypertension, benign (9) Toxic metabolic encephalopathy (10) Bacteremia due to Staphylococcus Assessment/Plan Assessment/Plan 1. Dehydration. 2. Acute rhabdomyolysis. 3. Hyperproteinemia, possible myeloma. 4. Lactic acidosis, resolved. 5. Hypertension. 6. Delirium monitor encourage complainance with treatment BP control IVF hydration, F/U renal recs social service, PT/OT Subjective Allergies: Coded Allergies: No Known Allergies (Unverified , 07/21/19) Subjective AFVSS O2 needs stable Cr 1.7 nishi PO Objective Last 24 Hour Vital Signs Date Time Temp Pulse Resp B/P (MAP) Pulse Ox O2 Delivery O2 Flow Rate FiO2 07/24/19 16:00 97.2 80 18 136/72 (93) 97 07/24/19 12:19 158/87 07/24/19 12:00 97.5 88 19 158/87 (110) 98 07/24/19 09:00 Room Air 07/24/19 08:48 76 134/80 07/24/19 08:00 97.3 76 19 134/80 (98) 96 07/24/19 05:08 149/78 07/24/19 04:00 97.4 68 18 149/78 (101) 98 07/24/19 00:00 96.4 70 18 145/86 (105) 98 07/23/19 23:40 145/86 07/23/19 21:00 Room Air 07/23/19 20:00 96.4 70 18 138/70 (92) 98 Intake and Output 07/23/19 07/24/19 19:00 07:00 Intake Total 1607.416 ml 900 ml Output Total 600 ml Balance 1607.416 ml 300 ml Intake Oral 240 ml IV Total 1367.416 ml 900 ml Output Urine Total 600 ml General Appearance: WD/WN, no acute distress HEENT: normocephalic, atraumatic, anicteric, mucous membranes moist Respiratory/Chest: chest wall non-tender, lungs clear, normal breath sounds Cardiovascular: normal peripheral pulses, normal rate, regular rhythm Abdomen: normal bowel sounds, soft, non tender, no organomegaly, non distended , no mass Extremities: no cyanosis, no clubbing, no edema Microbiology Date/Time Source Procedure Growth Status 07/21/19 17:35 Nasal Nares - Final Complete 07/21/19 17:35 Nasal Nares - Final Complete Laboratory Tests 07/24/19 05:20: White Blood Count 7.0, Red Blood Count 4.13L, Hemoglobin 12.9L, Hematocrit 38.5L , Mean Corpuscular Volume 93, Mean Corpuscular Hemoglobin 31.2H, Mean Corpuscular Hemoglobin Concent 33.5, Red Cell Distribution Width 11.8, Platelet Count 258, Mean Platelet Volume 6.9, Neutrophils (%) (Auto) 58.6, Lymphocytes (% ) (Auto) 22.8, Monocytes (%) (Auto) 12.5H, Eosinophils (%) (Auto) 5.2H, Basophils (%) (Auto) 0.9, Sodium Level 145, Potassium Level 3.9, Chloride Level 110H, Carbon Dioxide Level 26, Anion Gap 9, Blood Urea Nitrogen 16, Creatinine 1.7H, Estimat Glomerular Filtration Rate , Glucose Level 110H, Calcium Level 8.2L, Phosphorus Level 2.9, Magnesium Level 1.9, Total Bilirubin 0.8, Aspartate Amino Transf (AST/SGOT) 37, Alanine Aminotransferase (ALT/SGPT) 39, Alkaline Phosphatase 61, Total Creatine Kinase 557H, Total Protein 6.8, Albumin 2.9L, Globulin 3.9, Albumin/Globulin Ratio 0.7L Current Medications Medications (Trade) Dose Ordered Sig/Hanh Route PRN Reason Start Time Stop Time Status Last Admin Dose Admin Amlodipine Besylate (Norvasc) 10 mg DAILY ORAL 07/22/19 11:30 08/22/19 11:29 07/24/19 08:48 Clonidine HCl (Catapres TTS-3) 1 patch QWEEK TDERMAL 07/22/19 12:00 08/21/19 11:59 07/22/19 11:14 Dextrose/ Electrolytes 1,000 ml @ 60 mls/hr [id number] IV 07/24/19 14:15 08/23/19 14:14 07/24/19 14:15 Hydralazine HCl (Apresoline) 50 mg Q6HR ORAL 07/22/19 18:00 08/21/19 17:59 07/24/19 12:19 Quetiapine Fumarate (SEROqueL) 25 mg Q6H PRN ORAL For Anxiety 07/22/19 12:45 08/21/19 12:44 Quetiapine Fumarate (SEROqueL) 25 mg QHS ORAL 07/21/19 21:00 08/20/19 20:59 07/22/19 22:22 Shiraz Cervantes MD Jul 24, 2019 17:19
--- NOTE | 2019-07-24 19:20 | NUR ---
NURSE NOTES: Received pt from ARELY Love. Pt sleeping in bed. IV site intact and running fluid. Bilateral soft wrist restraints in place and skin is intact under the restraints. Condom cath intact. No acute distress noted. Bed locked, lowest position, alarm on, side rails up, call light within reach. Will continue to monitor.
--- NOTE | 2019-07-24 19:23 | NUR ---
HAND-OFF: Report given to ARELY Lucero.
[2019-07-24 20:00] VITALS: BP 134/83
[2019-07-25] VITALS: BP 124/85
[2019-07-25 04:00] VITALS: BP 148/80
[2019-07-25] MEDS: HydrALAZINE 50mg tab ORAL SCH ×4 (06:03→17:03)
[2019-07-25] MEDS ORDERED: D5 1/2NS w/KCl 40meq 1000ml 1,000 ML IV SCH (06:30)
[2019-07-25 07:08] LABS: BASOPHILS % (AUTO) 1.8 % (0.0-2.0); HEMATOCRIT 45.8 % (42.0-52.0); HEMOGLOBIN 15.4 G/DL (14.2-18.0); LYMPHOCYTES % (AUTO) 19.8 % (20.0-45.0); MEAN CORPUSCULAR VOLUME 94 FL (80-99); MONOCYTES % (AUTO) 9.3 % (1.0-10.0); NEUTROPHILS % (AUTO) 61.2 % (45.0-75.0); PLATELET COUNT 266 K/UL (150-450); RED BLOOD COUNT 4.89 M/UL (4.70-6.10); RED CELL DISTRIBUTION WIDTH 12.3 % (11.6-14.8); WHITE BLOOD COUNT 7.3 K/UL (4.8-10.8)
--- NOTE | 2019-07-25 07:39 | NUR ---
HAND-OFF: Report given to ARELY Prater.
[2019-07-25 07:44] LABS: ANION GAP 9 mmol/L (5-15); BLOOD UREA NITROGEN 19 mg/dL (7-18); CALCIUM 8.9 MG/DL (8.5-10.1); CARBON DIOXIDE 26 MMOL/L (21-32); CHLORIDE 106 MMOL/L (98-107); CREATINE KINASE 440 U/L (26-308); POTASSIUM 4.5 MMOL/L (3.5-5.1); SODIUM 140 MMOL/L (136-145)
--- NOTE | 2019-07-25 07:55 | NUR ---
NURSE NOTES: pt awake alert, no sob. no distress. restraints on, radial pulses present. no restlessness or confusion at this time. no c/o pain. call light within reach. will monitor. restraints on. left arm edematous, stopped iv , removed iv that was leaking, elevated arm.
[2019-07-25 08:00] VITALS: BP 140/82
[2019-07-25 11:22] VITALS: BP 154/80
--- NOTE | 2019-07-25 11:26 | NUR ---
CASE MANAGEMENT: REVIEW 07/25/2019 SI: RHABDOMYOLYSIS . JERMAINE . DEHYDRATION .TOXIC METABOLIC ENCEPHALOPATHY 97.6 80 20 140/82 96% ON RA BUN 19 CREAT 2.0 IS: IV D5 @60ML/HR K-DUR PO QD NORVASC PO QD HYDRALAZINE PO Q6HR CATAPRES TD QWK SEROQUEL PO QHS \: 4E MED SURG DCP: HOME WHEN MEDICALLY STABLE PLAN: LOCATE FAMILY CONT INTRAVENOUS FLUIDS CONT ANTIHYPERTENSIVE MEDS CONT NEURO CHECK
--- NOTE | 2019-07-25 11:50 | NUR ---
RD ASSESSMENT & RECOMMENDATIONS SEE CARE ACTIVITY FOR COMPLETE ASSESSMENT DAILY ESTIMATED NEEDS: Needs based on cardiac, 69kg abw 25-30 kcals/kg 7920-4087 total kcals 1-1.2 g protein/kg 69-83 g total protein 25-30 mL/kg 2734-8633 total fluid mLs NUTRITION DIAGNOSIS: Altered nutrition related lab values R/T dehydration, HTN, clinical condition as evidenced by elev creat (1.8 -> 2.0), elev T bili (1.1 -> wnl), elev BPs (220/110 -> now improved), low K (3.3 -> wnl), elev total creatine kinase (2240 ->440 trend down). CURRENT DIET:CLEAR LIQUIDS PO DIET RECOMMENDATIONS: ADVANCE DIET IF MEDICALLY APPROPRIATE -----> LOW NA/ texture as tolerated -----> On clear liquid diet x 4 days, no GI related issues ADDITIONAL RECOMMENDATIONS: * Calibrated bedscale wt * Advance diet in a timely manner: on CLD at this time, no GI issues * Monitor lytes, replete as needed * Check A1C: mildly elev FBGs (132, 148) upon adm
--- NOTE | 2019-07-25 13:08 | NUR ---
Social Work This Sw received a consult to assist with a home safety evaluation, to locate family. This Sw met with patient who is alert/oriented to name mostly. Patient was able to recall his sisters name, but not her contact information. Patient was able to explain he lives alone and was walking with a walker, was not driving prior. Patient denied any substance abuse prior. Patient explains he was taking the bus to get his groceries and managing mostly on his own. This SW made an attempt to locate family through [phone] (411 blocked from this hospital; spoke with [employer] operator). Patient agreeable to going to SNF upon discharge (patient not able to care for self; requiring max assist with P.T). Case Management informed.
--- NOTE | 2019-07-25 14:30 | NUR ---
NURSE NOTES: SECOND ATTEMPT TO REACH DR MANUEL CALLED OFFICE WELL, LEFT MSG RE IF OK TO ADV DIET AND TO REMOVE RESTRAINTS SINCE PATIENT HAS BEEN COOPERATIVE, CALM, AND COMPLIANT
[2019-07-25 16:00] VITALS: BP 150/82
--- NOTE | 2019-07-25 16:25 | Nephrology Progress Note ---
Assessment/Plan Problem List: (1) Hypertension, benign (2) Toxic metabolic encephalopathy (3) Gait abnormality (4) Rhabdomyolysis (5) JERMAINE (acute kidney injury) (6) Dehydration (7) Episode of generalized weakness (8) Bacteremia due to Staphylococcus Plan f/u lab, hydrate, mobilize, try to get coop to po meds lab trend better until 1 /3 rise in creat Subjective ROS Limited/Unobtainable: Yes Objective Objective Last 24 Hour Vital Signs Date Time Temp Pulse Resp B/P (MAP) Pulse Ox O2 Delivery O2 Flow Rate FiO2 07/25/19 16:00 97.4 82 20 150/82 (104) 96 07/25/19 11:45 154/80 07/25/19 11:22 97.6 85 20 154/80 (104) 96 07/25/19 08:31 80 140/82 07/25/19 08:00 97.6 80 20 140/82 (101) 96 07/25/19 07:48 Room Air 07/25/19 06:03 148/80 07/25/19 04:00 97.6 82 20 148/80 (102) 96 07/25/19 00:00 124/85 07/25/19 00:00 97.6 75 20 124/85 (98) 96 07/24/19 21:00 Room Air 07/24/19 20:00 97.8 80 20 134/83 (100) 96 07/24/19 17:17 136/72 Intake and Output 07/24/19 07/25/19 19:00 07:00 Intake Total 1480 ml 60 ml Output Total 600 ml 100 ml Balance 880 ml -40 ml Intake Oral 840 ml IV Total 640 ml 60 ml Output Urine Total 600 ml 100 ml # Voids 1 Laboratory Tests 07/25/19 06:31: White Blood Count 7.3, Red Blood Count 4.89, Hemoglobin 15.4, Hematocrit 45.8, Mean Corpuscular Volume 94, Mean Corpuscular Hemoglobin 31.5H, Mean Corpuscular Hemoglobin Concent 33.7, Red Cell Distribution Width 12.3, Platelet Count 266, Mean Platelet Volume 7.2, Neutrophils (%) (Auto) 61.2, Lymphocytes (%) (Auto) 19.8L, Monocytes (%) (Auto) 9.3, Eosinophils (%) (Auto) 8.0H, Basophils (%) ( Auto) 1.8, Sodium Level 140, Potassium Level 4.5, Chloride Level 106, Carbon Dioxide Level 26, Anion Gap 9, Blood Urea Nitrogen 19H, Creatinine 2.0H, Estimat Glomerular Filtration Rate , Glucose Level 96, Calcium Level 8.9, Total Creatine Kinase 440H Height (Feet): 5 Height (Inches): 5.00 Weight (Pounds): 180 General Appearance: no apparent distress, lethargic EENT: normal ENT inspection Neck: normal alignment Cardiovascular: normal rate Respiratory/Chest: normal breath sounds Abdomen: non tender, soft Extremities: no edema Neurologic: disoriented Arthur Bethea MD Jul 25, 2019 16:25
--- NOTE | 2019-07-25 16:34 | NUR ---
*-* INSURANCE *-* ALL AVAILABLE CLINICALS HAVE BEEN FAXED TO: [facility]#[phone] fax#[phone]
--- NOTE | 2019-07-25 19:20 | NUR ---
HAND-OFF: Report given to RODRICK MCGEE.
--- NOTE | 2019-07-25 19:37 | NUR ---
NURSE NOTES: Received pt from ARELY Prater. Pt resting in bed, AAO x 2, on room air. IV site intact and running fluid. Pt is calm and cooperative. Condom cath intact. No acute distress noted. Bed locked, lowest position, alarm on, side rails up, call light within reach. Will continue to monitor.
[2019-07-25 20:00] VITALS: BP 140/75
[2019-07-26] VITALS (8 sets, daily range): BP systolic 113–178; BP diastolic 67–94
--- NOTE | 2019-07-26 | Progress Note ---
DATE: 07/25/2019 SUBJECTIVE: The patient is less agitated, resting, and in no acute distress. Calm and more cooperative. The patient is able to answer his questions. However, disoriented to the situation, does not know the date. MENTAL STATUS EXAMINATION: The patient is alert and oriented x2. Mood is less anxious. Affect is constricted. Congruent with mood. Thought process is concrete. Thought content, no suicidal or homicidal ideation. Cognition is impaired. Insight and judgment are impaired. ASSESSMENT: Dementia with behavior disturbance. PLAN: 1. We will continue Seroquel. 2. Continue to follow and readjust the medications. Nury Mandel M.D. DR: AKUA JOB#: [id number] CC:
[2019-07-26] MEDS: HydrALAZINE 50mg tab ORAL SCH ×4 (00:04→17:07)
[2019-07-26 07:15] LABS: BASOPHILS % (AUTO) 1.2 % (0.0-2.0); EOSINOPHILS % (AUTO) 9.5 % (0.0-3.0); HEMATOCRIT 35.2 % (42.0-52.0); LYMPHOCYTES % (AUTO) 20.8 % (20.0-45.0); MEAN CORPUSCULAR VOLUME 93 FL (80-99); MONOCYTES % (AUTO) 10.8 % (1.0-10.0); NEUTROPHILS % (AUTO) 57.8 % (45.0-75.0); PLATELET COUNT 213 K/UL (150-450); RED CELL DISTRIBUTION WIDTH 11.9 % (11.6-14.8); WHITE BLOOD COUNT 5.2 K/UL (4.8-10.8)
--- NOTE | 2019-07-26 07:37 | NUR ---
NURSE NOTES: Patient awake, alert x1; on room air, no sign of distress and shortness of breath; no sing of chest pain; IV Left-hand 22G 1/2NS running at 125cc; Condom Cath in place, drains yellow urine; side rails up x2, breaks engaged, bed at lowest position, bed alarm on; call light within reach; will keep monitoring.
[2019-07-26 07:46] LABS: ALANINE AMINOTRANSFERASE 49 U/L (12-78); ALBUMIN 2.8 G/DL (3.4-5.0); ALBUMIN/GLOBULIN RATIO 0.7 (1.0-2.7); ALKALINE PHOSPHATASE 74 U/L (46-116); ANION GAP 9 mmol/L (5-15); ASPARTATE AMINO TRANSFERASE 32 U/L (15-37); BILIRUBIN,TOTAL 0.9 MG/DL (0.2-1.0); BLOOD UREA NITROGEN 20 mg/dL (7-18); CALCIUM 8.3 MG/DL (8.5-10.1); CARBON DIOXIDE 25 MMOL/L (21-32); CHLORIDE 108 MMOL/L (98-107); CREATINE KINASE 187 U/L (26-308); POTASSIUM 3.9 MMOL/L (3.5-5.1); SODIUM 142 MMOL/L (136-145)
--- NOTE | 2019-07-26 07:46 | NUR ---
HAND-OFF: Report given to ARELY Love.
--- NOTE | 2019-07-26 12:27 | Nephrology Progress Note ---
Assessment/Plan Problem List: (1) Hypertension, benign (2) Toxic metabolic encephalopathy (3) Gait abnormality (4) Rhabdomyolysis (5) JERMAINE (acute kidney injury) (6) Dehydration (7) Episode of generalized weakness (8) Bacteremia due to Staphylococcus (9) CKD (chronic kidney disease) stage 3, GFR 30-59 ml/min Plan f/u lab, hydrate, mobilize, try to get coop to po meds lab trend better until 1 /3 rise in creat , ckd3, renal US, mobilize Subjective Constitutional: Reports: weakness HEENT: Reports: no symptoms Genitourinary: Reports: no symptoms Neurologic/Psychiatric: Reports: pre-existing deficit Objective Objective Last 24 Hour Vital Signs Date Time Temp Pulse Resp B/P (MAP) Pulse Ox O2 Delivery O2 Flow Rate FiO2 07/26/19 12:20 161/87 07/26/19 12:00 98.0 87 20 161/87 (111) 93 07/26/19 09:00 Room Air 07/26/19 08:14 87 178/83 07/26/19 08:00 98.2 87 20 178/83 (114) 98 07/26/19 06:09 146/94 07/26/19 04:00 97.8 68 16 146/94 (111) 94 07/26/19 00:04 159/74 07/26/19 00:00 97.3 78 16 159/74 (102) 97 07/25/19 21:00 Room Air 07/25/19 20:00 97.2 88 19 140/75 (96) 96 07/25/19 17:03 150/82 07/25/19 16:00 97.4 82 20 150/82 (104) 96 Intake and Output 07/25/19 07/26/19 19:00 07:00 Intake Total 1715 ml 1375 ml Output Total 600 ml 600 ml Balance 1115 ml 775 ml Intake Oral 800 ml IV Total 915 ml 1375 ml Output Urine Total 600 ml 600 ml # Voids 1 Laboratory Tests 07/26/19 07:00: White Blood Count 5.2, Red Blood Count 3.80L, Hemoglobin 12.0L, Hematocrit 35.2L , Mean Corpuscular Volume 93, Mean Corpuscular Hemoglobin 31.5H, Mean Corpuscular Hemoglobin Concent 34.0, Red Cell Distribution Width 11.9, Platelet Count 213, Mean Platelet Volume 6.8, Neutrophils (%) (Auto) 57.8, Lymphocytes (% ) (Auto) 20.8, Monocytes (%) (Auto) 10.8H, Eosinophils (%) (Auto) 9.5H, Basophils (%) (Auto) 1.2, Sodium Level 142, Potassium Level 3.9, Chloride Level 108H, Carbon Dioxide Level 25, Anion Gap 9, Blood Urea Nitrogen 20H, Creatinine 2.0H, Estimat Glomerular Filtration Rate , Glucose Level 104, Calcium Level 8.3L , Total Bilirubin 0.9, Aspartate Amino Transf (AST/SGOT) 32, Alanine Aminotransferase (ALT/SGPT) 49, Alkaline Phosphatase 74, Total Creatine Kinase 187, Total Protein 6.9, Albumin 2.8L, Globulin 4.1, Albumin/Globulin Ratio 0.7L Height (Feet): 5 Height (Inches): 5.00 Weight (Pounds): 180 General Appearance: no apparent distress, alert, confused EENT: normal ENT inspection Neck: normal alignment Cardiovascular: normal rate, regular rhythm Respiratory/Chest: lungs clear Abdomen: non tender, soft Extremities: no edema Neurologic: dialysis nurse II-XII grossly normal Arthur Bethea MD Jul 26, 2019 12:27
--- NOTE | 2019-07-26 16:10 | NUR ---
NURSE NOTES: MD Bethea order Post Void residual, and bladder scan used to measure and patient retained 875cc urine; called MD Bethea to report the result; received an order to insert Walsh for retention. Order carried out as order given.
--- NOTE | 2019-07-26 19:18 | NUR ---
HAND-OFF: Report given to ARELY Morfin.
--- NOTE | 2019-07-26 19:47 | NUR ---
NURSE NOTES: Patient is in bed,awake, alert x1, confused. Breathing on room air, no acute distress noted. IV intact and F/C draining clear yellow urine. Bed at low and locked position, bed alarm on. Call light within reach. Will continue to monitor the pt.
--- NOTE | 2019-07-26 20:30 | NUR ---
NURSE NOTES: Called MD regarding BP 168/86. Awaiting for call back.
--- NOTE | 2019-07-26 21:00 | NUR ---
NURSE NOTES: Called and left message to MD second time regarding BP of 168/86, awaiting for call back.
--- NOTE | 2019-07-26 21:56 | NUR ---
NURSE NOTES: Recheck BP @ 2145, bp went down to 122/76. will continue to monitor.
[2019-07-27 04:00] VITALS: BP 149/75
--- NOTE | 2019-07-27 06:48 | NUR ---
NURSE NOTES: Pt's iv is not working. Made multiple attempt to get a new iv access. unable to get a new iv accesses, because pt is hard stick. called and left message to Dr Cervantes.
--- NOTE | 2019-07-27 07:16 | NUR ---
NURSE NOTES: Called and left message to dr Fernandez, regarding pt has no iv accesses.
--- NOTE | 2019-07-27 07:18 | NUR ---
HAND-OFF: Report given to ARELY Kuo.
--- NOTE | 2019-07-27 07:48 | NUR ---
NURSE NOTES: Patient alert x1; on room air, no sing of distress and shortness of breath; no sing of chest pain; IV access not working, PM nurse left message to MD Bethea; Walsh in place drains yellow urine; side rails up x2, breaks engaged, bed at lowest position, bed alarm on; will keep monitoring.
[2019-07-27 08:00] VITALS: BP 164/85
[2019-07-27 08:04] LABS: BASOPHILS % (AUTO) 1.5 % (0.0-2.0); EOSINOPHILS % (AUTO) 7.6 % (0.0-3.0); HEMATOCRIT 37.8 % (42.0-52.0); HEMOGLOBIN 12.7 G/DL (14.2-18.0); LYMPHOCYTES % (AUTO) 18.1 % (20.0-45.0); MEAN CORPUSCULAR VOLUME 93 FL (80-99); MONOCYTES % (AUTO) 8.4 % (1.0-10.0); NEUTROPHILS % (AUTO) 64.5 % (45.0-75.0); PLATELET COUNT 245 K/UL (150-450); RED BLOOD COUNT 4.06 M/UL (4.70-6.10); WHITE BLOOD COUNT 6.1 K/UL (4.8-10.8)
[2019-07-27 08:25] LABS: ANION GAP 12 mmol/L (5-15); BLOOD UREA NITROGEN 27 mg/dL (7-18); CARBON DIOXIDE 24 MMOL/L (21-32); CHLORIDE 108 MMOL/L (98-107); CREATINE KINASE 141 U/L (26-308); POTASSIUM 4.1 MMOL/L (3.5-5.1); SODIUM 144 MMOL/L (136-145)
[2019-07-27] MEDS: HydrALAZINE 50mg tab ORAL SCH ×2 (08:40→17:00)
--- NOTE | 2019-07-27 10:52 | Nephrology Progress Note ---
Assessment/Plan Problem List: (1) Hypertension, benign (2) Toxic metabolic encephalopathy (3) Gait abnormality (4) Rhabdomyolysis (5) JERMAINE (acute kidney injury) (6) Dehydration (7) Episode of generalized weakness (8) Bacteremia due to Staphylococcus (9) CKD (chronic kidney disease) stage 3, GFR 30-59 ml/min (10) Urinary retention Plan f/u lab, hydrate, mobilize, try to get coop to po meds lab trend better until 1 /3 rise in creat , ckd3, renal US, mobilize, dickson placed as 800 ml residual Subjective Constitutional: Reports: weakness HEENT: Reports: no symptoms Genitourinary: Reports: other - retention Neurologic/Psychiatric: Reports: pre-existing deficit Objective Objective Last 24 Hour Vital Signs Date Time Temp Pulse Resp B/P (MAP) Pulse Ox O2 Delivery O2 Flow Rate FiO2 07/27/19 09:00 Room Air 07/27/19 08:40 164/85 07/27/19 08:40 82 164/85 07/27/19 08:00 97.3 82 20 164/85 (111) 95 07/27/19 04:00 98.2 82 18 149/75 (99) 96 07/26/19 23:58 97.4 76 18 113/67 (82) 97 07/26/19 21:52 97.6 86 18 122/76 (91) 96 07/26/19 21:00 Room Air 07/26/19 20:00 97.6 90 18 168/86 (113) 96 07/26/19 17:07 152/91 07/26/19 17:07 88 152/91 07/26/19 17:00 Room Air 07/26/19 16:00 97.8 88 18 152/91 (111) 96 07/26/19 12:20 161/87 07/26/19 12:00 98.0 87 20 161/87 (111) 93 Intake and Output 07/26/19 07/27/19 19:00 07:00 Intake Total 1550 ml 240 ml Output Total 1900 ml 800 ml Balance -350 ml -560 ml Intake Oral 800 ml 240 ml IV Total 750 ml Output Urine Total 1900 ml 800 ml Laboratory Tests 07/27/19 07:15: White Blood Count 6.1, Red Blood Count 4.06L, Hemoglobin 12.7L, Hematocrit 37.8L , Mean Corpuscular Volume 93, Mean Corpuscular Hemoglobin 31.2H, Mean Corpuscular Hemoglobin Concent 33.6, Red Cell Distribution Width 12.0, Platelet Count 245, Mean Platelet Volume 6.9, Neutrophils (%) (Auto) 64.5, Lymphocytes (% ) (Auto) 18.1L, Monocytes (%) (Auto) 8.4, Eosinophils (%) (Auto) 7.6H, Basophils (%) (Auto) 1.5, Sodium Level 144, Potassium Level 4.1, Chloride Level 108H, Carbon Dioxide Level 24, Anion Gap 12, Blood Urea Nitrogen 27H, Creatinine 2.0H, Estimat Glomerular Filtration Rate , Glucose Level 96, Calcium Level 9.0, Total Creatine Kinase 141 Height (Feet): 5 Height (Inches): 5.00 Weight (Pounds): 180 General Appearance: no apparent distress EENT: normal ENT inspection Neck: normal alignment Cardiovascular: normal rate Respiratory/Chest: lungs clear Abdomen: non tender Extremities: no edema Neurologic: kinesiotherapist II-XII grossly normal Arthur Bethea MD Jul 27, 2019 10:52
[2019-07-27 12:00] VITALS: BP 150/73
[2019-07-27 16:00] VITALS: BP 127/74
[2019-07-27] MEDS: Tamsulosin 0.4mg cap ORAL SCH (17:12)
--- NOTE | 2019-07-27 19:22 | NUR ---
HAND-OFF: Report given to ARELY Johnson.
--- NOTE | 2019-07-27 19:46 | NUR ---
NURSE NOTES: PATIENT IN BED, ASLEEP, AROUSABLE TO TOUCH. NO S/S PAIN OR DISTRESS NOTED. MARQUEZ IN PLACE, DRAINING URINE BY GRAVITY. BED IN LOWEST POSITION, CALL LIGHT WITHIN REACH, BED ALARM ON, WILL CONTINUE TO MONITOR.
[2019-07-27 20:00] VITALS: BP 135/67
[2019-07-28 00:36] VITALS: BP 125/85
[2019-07-28 04:49] VITALS: BP 116/71
[2019-07-28 07:05] LABS: BASOPHILS % (AUTO) 1.8 % (0.0-2.0); HEMATOCRIT 34.6 % (42.0-52.0); HEMOGLOBIN 11.5 G/DL (14.2-18.0); LYMPHOCYTES % (AUTO) 20.8 % (20.0-45.0); MEAN CORPUSCULAR VOLUME 92 FL (80-99); MONOCYTES % (AUTO) 12.5 % (1.0-10.0); NEUTROPHILS % (AUTO) 57.9 % (45.0-75.0); PLATELET COUNT 225 K/UL (150-450); RED BLOOD COUNT 3.74 M/UL (4.70-6.10); RED CELL DISTRIBUTION WIDTH 11.6 % (11.6-14.8); WHITE BLOOD COUNT 5.1 K/UL (4.8-10.8)
[2019-07-28 07:17] LABS: ANION GAP 9 mmol/L (5-15); BLOOD UREA NITROGEN 29 mg/dL (7-18); CALCIUM 8.9 MG/DL (8.5-10.1); CARBON DIOXIDE 23 MMOL/L (21-32); CHLORIDE 108 MMOL/L (98-107); CREATININE 2.2 MG/DL (0.55-1.30); POTASSIUM 4.3 MMOL/L (3.5-5.1); SODIUM 140 MMOL/L (136-145)
--- NOTE | 2019-07-28 07:22 | NUR ---
HAND-OFF: Report given to ARCENIO MONDRAGON RN.
--- NOTE | 2019-07-28 07:31 | NUR ---
NURSE NOTES: Patient awake, alert x1, confused; on room air, no sing of shortness of breath, no sing of chest pain; IV Left For-Arm 1/2NS running at 50cc, Walsh in place, drains yellow urine; side rails up x2, breaks engaged, bed at lowest position; call light within reach; will keep monitoring.
[2019-07-28 08:00] VITALS: BP 121/79
[2019-07-28] MEDS: HydrALAZINE 50mg tab ORAL SCH ×2 (09:00→17:14)
[2019-07-28] MEDS: Tamsulosin 0.4mg cap ORAL SCH ×2 (09:00→17:14)
[2019-07-28 12:00] VITALS: BP 124/72
--- NOTE | 2019-07-28 12:51 | NUR ---
*-* INSURANCE *-* ALL AVAILABLE CLINICALS HAVE BEEN FAXED TO: [facility]#[phone] fax#[phone]
--- NOTE | 2019-07-28 14:44 | Pulmonology Progress Note ---
Assessment/Plan Problems: (1) Rhabdomyolysis (2) JERMAINE (acute kidney injury) (3) Dehydration (4) Episode of generalized weakness (5) Weakness (6) Gait abnormality (7) Failure to thrive in adult (8) Hypertension, benign (9) Toxic metabolic encephalopathy (10) Bacteremia due to Staphylococcus Assessment/Plan Assessment/Plan 1. Dehydration. 2. Acute rhabdomyolysis. 3. Hyperproteinemia, possible myeloma. 4. Lactic acidosis, resolved. 5. Hypertension. 6. Delirium monitor encourage compliannce with treatment BP control IVF hydration, F/U renal recs, ? Bx social service, PT/OT Subjective Allergies: Coded Allergies: No Known Allergies (Unverified , 07/21/19) Subjective AFVSS on RA Cr worse nishi PO No F/C/CP/SOB/N/V/D/C/abd pain/urinary complaints Objective Last 24 Hour Vital Signs Date Time Temp Pulse Resp B/P (MAP) Pulse Ox O2 Delivery O2 Flow Rate FiO2 07/28/19 12:00 98.0 74 18 124/72 (89) 98 07/28/19 09:00 121/79 07/28/19 09:00 84 121/79 07/28/19 09:00 Room Air 07/28/19 08:00 97.9 84 17 121/79 (93) 96 07/28/19 04:49 97.7 91 19 116/71 (86) 97 07/28/19 00:36 97.5 85 19 125/85 (98) 98 07/27/19 22:13 Room Air 07/27/19 20:00 97.4 77 19 135/67 (89) 95 07/27/19 17:00 127/74 07/27/19 17:00 81 127/74 07/27/19 16:00 97.6 81 20 127/74 (91) 97 Intake and Output 07/27/19 07/28/19 19:00 07:00 Intake Total 720 ml 450 ml Output Total 1300 ml 1000 ml Balance -580 ml -550 ml Intake Oral 720 ml 100 ml IV Total 350 ml Output Urine Total 1300 ml 1000 ml # Voids 2 General Appearance: no acute distress HEENT: normocephalic, atraumatic, anicteric, mucous membranes moist Respiratory/Chest: chest wall non-tender, lungs clear, normal breath sounds Cardiovascular: normal peripheral pulses, normal rate, regular rhythm Abdomen: normal bowel sounds, soft, non tender, no organomegaly, non distended , no mass Extremities: no cyanosis, no clubbing, no edema Laboratory Tests 07/28/19 05:45: White Blood Count 5.1, Red Blood Count 3.74L, Hemoglobin 11.5L, Hematocrit 34.6L , Mean Corpuscular Volume 92, Mean Corpuscular Hemoglobin 30.8, Mean Corpuscular Hemoglobin Concent 33.3, Red Cell Distribution Width 11.6, Platelet Count 225, Mean Platelet Volume 6.2L, Neutrophils (%) (Auto) 57.9, Lymphocytes ( %) (Auto) 20.8, Monocytes (%) (Auto) 12.5H, Eosinophils (%) (Auto) 7.0H, Basophils (%) (Auto) 1.8, Sodium Level 140, Potassium Level 4.3, Chloride Level 108H, Carbon Dioxide Level 23, Anion Gap 9, Blood Urea Nitrogen 29H, Creatinine 2.2H, Estimat Glomerular Filtration Rate , Glucose Level 109H, Calcium Level 8.9 Current Medications Medications (Trade) Dose Ordered Sig/Hanh Route PRN Reason Start Time Stop Time Status Last Admin Dose Admin Amlodipine Besylate (Norvasc) 10 mg BID ORAL 07/26/19 18:00 08/25/19 17:59 07/28/19 09:00 Clonidine HCl (Catapres TTS-3) 1 patch QWEEK TDERMAL 07/22/19 12:00 08/21/19 11:59 07/22/19 11:14 Finasteride (Proscar) 5 mg DAILY ORAL 07/28/19 09:00 08/27/19 08:59 07/28/19 09:00 Hydralazine HCl (Apresoline) 100 mg BID ORAL 07/26/19 18:00 08/25/19 17:59 07/28/19 09:00 Quetiapine Fumarate (SEROqueL) 25 mg Q6H PRN ORAL For Anxiety 07/22/19 12:45 08/21/19 12:44 Quetiapine Fumarate (SEROqueL) 25 mg QHS ORAL 07/21/19 21:00 08/20/19 20:59 07/27/19 20:33 Sodium Chloride 1,000 ml @ 50 mls/hr Q20H IV 07/26/19 12:30 08/25/19 12:29 07/26/19 13:30 Tamsulosin HCl (Flomax) 0.4 mg BID ORAL 07/27/19 18:00 08/26/19 17:59 07/28/19 09:00 Shiraz Cervantes MD Jul 28, 2019 14:44
[2019-07-28 16:00] VITALS: BP 145/83
--- NOTE | 2019-07-28 16:07 | NUR ---
CASE MANAGEMENT: REVIEW 07/26/2019 SI: RHABDOMYOLYSIS . JERMAINE . DEHYDRATION .TOXIC METABOLIC ENCEPHALOPATHY 98.2 87 20 178/83 98% ON RA H/H 12.7/37.8 BUN 20 CREAT 2.2 CA+ 8.3 IS:IV NS @50ML/HR NORVASC PO BID HYDRALAZINE PO BID CATAPRES TD QWK FLOMAX PO BID SEROQUEL PO QHS \: 4E MED SURG DCP: HOME WHEN MEDICALLY STABLE PLAN: LOCATE FAMILY CONT INTRAVENOUS FLUIDS CONT ANTIHYPERTENSIVE MEDS CONT NEURO CHECK CASE MANAGEMENT: REVIEW 07/27/2019 SI: RHABDOMYOLYSIS . JERMAINE . DEHYDRATION .TOXIC METABOLIC ENCEPHALOPATHY 97.3 82 20 164/85 95% ON RA BUN 27 CREAT 2.0 H/H 12.7/37.8 IS:IV NS @50ML/HR NORVASC PO BID HYDRALAZINE PO BID CATAPRES TD QWK FLOMAX PO BID SEROQUEL PO QHS \: 4E MED SURG DCP: HOME WHEN MEDICALLY STABLE PLAN: PLACEMENT CASE MANAGEMENT: REVIEW 07/28/2019 SI: RHABDOMYOLYSIS . JERMAINE . DEHYDRATION .TOXIC METABOLIC ENCEPHALOPATHY 97.9 84 17 121/79 96% ON RA BUN 29 CREAT 2.2 H/H 11.5/34.6 IS:IV NS @50ML/HR NORVASC PO BID HYDRALAZINE PO BID CATAPRES TD QWK FLOMAX PO BID SEROQUEL PO QHS \: 4E MED SURG DCP: HOME WHEN MEDICALLY STABLE PLAN: NEURO CHECKS PT/OT EVAL AND TREAT CONTROL BP
--- NOTE | 2019-07-28 16:50 | NUR ---
DISCHARGE PLANNING: PATIENT HAS BEEN REFERRED OUT TO 1# [facility] T: [phone] F: [phone] 2# AL[facility] T: [phone] F: [phone]
--- NOTE | 2019-07-28 17:36 | Nephrology Progress Note ---
Assessment/Plan Problem List: (1) Hypertension, benign (2) Toxic metabolic encephalopathy (3) Gait abnormality (4) Rhabdomyolysis (5) JERMAINE (acute kidney injury) (6) Dehydration (7) Episode of generalized weakness (8) Bacteremia due to Staphylococcus (9) CKD (chronic kidney disease) stage 3, GFR 30-59 ml/min (10) Urinary retention Plan f/u lab, hydrate, mobilize, try to get coop to po meds lab trend better until 1 /3 rise in creat , ckd3, renal US, mobilize, dickson placed as 800 ml residual , would keep dickson for one week, flomax and finasteride started Subjective Constitutional: Reports: weakness HEENT: Reports: no symptoms Genitourinary: Reports: incontinence Neurologic/Psychiatric: Reports: no symptoms Objective Objective Last 24 Hour Vital Signs Date Time Temp Pulse Resp B/P (MAP) Pulse Ox O2 Delivery O2 Flow Rate FiO2 07/28/19 17:14 145/83 07/28/19 17:14 101 145/83 07/28/19 16:00 98.5 101 18 145/83 (103) 99 07/28/19 12:00 98.0 74 18 124/72 (89) 98 07/28/19 09:00 121/79 07/28/19 09:00 84 121/79 07/28/19 09:00 Room Air 07/28/19 08:00 97.9 84 17 121/79 (93) 96 07/28/19 04:49 97.7 91 19 116/71 (86) 97 07/28/19 00:36 97.5 85 19 125/85 (98) 98 07/27/19 22:13 Room Air 07/27/19 20:00 97.4 77 19 135/67 (89) 95 Intake and Output 07/27/19 07/28/19 19:00 07:00 Intake Total 720 ml 450 ml Output Total 1300 ml 1000 ml Balance -580 ml -550 ml Intake Oral 720 ml 100 ml IV Total 350 ml Output Urine Total 1300 ml 1000 ml # Voids 2 Laboratory Tests 07/28/19 05:45: White Blood Count 5.1, Red Blood Count 3.74L, Hemoglobin 11.5L, Hematocrit 34.6L , Mean Corpuscular Volume 92, Mean Corpuscular Hemoglobin 30.8, Mean Corpuscular Hemoglobin Concent 33.3, Red Cell Distribution Width 11.6, Platelet Count 225, Mean Platelet Volume 6.2L, Neutrophils (%) (Auto) 57.9, Lymphocytes ( %) (Auto) 20.8, Monocytes (%) (Auto) 12.5H, Eosinophils (%) (Auto) 7.0H, Basophils (%) (Auto) 1.8, Sodium Level 140, Potassium Level 4.3, Chloride Level 108H, Carbon Dioxide Level 23, Anion Gap 9, Blood Urea Nitrogen 29H, Creatinine 2.2H, Estimat Glomerular Filtration Rate , Glucose Level 109H, Calcium Level 8.9 Height (Feet): 5 Height (Inches): 5.00 Weight (Pounds): 180 General Appearance: no apparent distress, alert, confused EENT: normal ENT inspection Neck: normal alignment Cardiovascular: normal rate, regular rhythm Respiratory/Chest: lungs clear Abdomen: non tender, soft Neurologic: 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
--- NOTE | 2019-07-28 18:18 | Diagnostic Imaging Report ---
Indication: Acute renal failure Technique: Grayscale and duplex images of the kidneys, retroperitoneum, and bladder were obtained. Comparison: none Findings: Right kidney measures 9.6 cm in length. Left kidney measures 10.3 cm in length. Both kidneys demonstrate normal echogenicity. No hydronephrosis. No focal abnormality. Normal inferior vena cava. Bladder is nearly empty, contains a Walsh catheter. Calculated retained urine volume 46 mL. Acute Impression: Negative for hydronephrosis 46 mm calculated retained urine volume, despite presence of a Walsh catheter.
--- NOTE | 2019-07-28 19:20 | NUR ---
HAND-OFF: Report given to ARELY Joshi.
--- NOTE | 2019-07-28 19:35 | NUR ---
NURSE NOTES: Received patient in bed. On room air, no respiratory distress noted. 1/2 side rails up. Alert x1. Clonidine patch noted on right upper chest. F/c in place draining yellow urine. Patient denies pain at this time. IV in left forearm running 1/2 NS at 50 mL/hr, no redness or swelling.
[2019-07-28 20:00] VITALS: BP 144/61
[2019-07-29] VITALS (7 sets, daily range): BP systolic 118–160; BP diastolic 70–79
--- NOTE | 2019-07-29 07:06 | NUR ---
HAND-OFF: Report given to Shira JIMENEZ.
--- NOTE | 2019-07-29 07:40 | NUR ---
NURSE NOTES: Patient awake, alert, oriented x2, confused; on room air, no s/s of shortness of breath, discomfort and pain noted. IV access on Left FA 22 g patent and intact running 1/2NS running at 50cc, Walsh in place, drains yellow color urine; side rails up x3, breaks engaged, bed at lowest position; call light within reach; will cont the plan of care. .
[2019-07-29] MEDS: Tamsulosin 0.4mg cap ORAL SCH ×2 (08:25→17:01)
[2019-07-29] MEDS: HydrALAZINE 50mg tab ORAL SCH ×2 (08:26→17:01)
--- NOTE | 2019-07-29 11:36 | NUR ---
CASE MANAGEMENT: REVIEW 07/29/2019 SI: TOXIC METABOLIC ENCEPHALOPATHY . RHABDOMYOLYSIS . JERMAINE . DEHYDRATION . 98.0 84 16 131/73 99% ON RA IS:IV NS @50ML/HR NORVASC PO BID HYDRALAZINE PO BID FLOMAX PO BID PROSCAR PO QD SEROQUEL PO QHS CATAPRES TD QWK \: 4E MED SURG DCP: HOME WHEN MEDICALLY STABLE PLAN: NEURO CHECKS PT/OT EVAL AND TREAT CONTROL BP
--- NOTE | 2019-07-29 13:06 | Pulmonology Progress Note ---
Assessment/Plan Problems: (1) Rhabdomyolysis (2) JERMAINE (acute kidney injury) (3) Dehydration (4) Episode of generalized weakness (5) Weakness (6) Gait abnormality (7) Failure to thrive in adult (8) Hypertension, benign (9) Toxic metabolic encephalopathy (10) Bacteremia due to Staphylococcus Assessment/Plan Assessment/Plan 1. Dehydration. 2. Acute rhabdomyolysis. 3. Hyperproteinemia, possible myeloma. 4. Lactic acidosis, resolved. 5. Hypertension. 6. Delirium monitor encourage compliannce with treatment BP control IVF hydration, F/U renal recs, ? Bx social service, PT/OT Subjective Allergies: Coded Allergies: No Known Allergies (Unverified , 07/21/19) Subjective AFVSS on RA nishi PO AML pending No F/C/CP/SOB/N/V/D/C/abd pain/urinary complaints Objective Last 24 Hour Vital Signs Date Time Temp Pulse Resp B/P (MAP) Pulse Ox O2 Delivery O2 Flow Rate FiO2 07/29/19 12:00 97.5 81 17 118/77 (91) 94 07/29/19 08:26 131/73 07/29/19 08:25 84 131/73 07/29/19 08:00 98.0 84 16 131/73 (92) 99 07/29/19 04:00 97.0 84 16 130/78 (95) 98 07/29/19 00:00 97.6 82 12 154/70 (98) 96 07/28/19 21:00 Room Air 07/28/19 20:00 97.5 86 16 144/61 (88) 93 07/28/19 17:14 145/83 07/28/19 17:14 101 145/83 07/28/19 16:00 98.5 101 18 145/83 (103) 99 Intake and Output 07/28/19 07/29/19 19:00 07:00 Intake Total 900 ml 300 ml Output Total 800 ml 700 ml Balance 100 ml -400 ml Intake Oral 500 ml IV Total 400 ml 300 ml Output Urine Total 800 ml 700 ml General Appearance: no acute distress, cachetic HEENT: normocephalic, atraumatic, anicteric, mucous membranes moist Respiratory/Chest: chest wall non-tender, lungs clear, normal breath sounds, no respiratory distress Cardiovascular: normal peripheral pulses, normal rate, regular rhythm Abdomen: normal bowel sounds, soft, non tender, no organomegaly, non distended , no mass Extremities: no cyanosis, no clubbing, no edema Current Medications Medications (Trade) Dose Ordered Sig/Hanh Route PRN Reason Start Time Stop Time Status Last Admin Dose Admin Amlodipine Besylate (Norvasc) 10 mg BID ORAL 07/26/19 18:00 08/25/19 17:59 07/29/19 08:25 Clonidine HCl (Catapres TTS-3) 1 patch QWEEK TDERMAL 07/22/19 12:00 08/21/19 11:59 07/22/19 11:14 Finasteride (Proscar) 5 mg DAILY ORAL 07/28/19 09:00 08/27/19 08:59 07/29/19 08:26 Hydralazine HCl (Apresoline) 100 mg BID ORAL 07/26/19 18:00 08/25/19 17:59 07/28/19 17:14 Quetiapine Fumarate (SEROqueL) 25 mg Q6H PRN ORAL For Anxiety 07/22/19 12:45 08/21/19 12:44 Quetiapine Fumarate (SEROqueL) 25 mg QHS ORAL 07/21/19 21:00 08/20/19 20:59 07/28/19 21:11 Sodium Chloride 1,000 ml @ 50 mls/hr Q20H IV 07/26/19 12:30 08/25/19 12:29 07/29/19 00:48 Tamsulosin HCl (Flomax) 0.4 mg BID ORAL 07/27/19 18:00 08/26/19 17:59 07/29/19 08:25 Shiraz Cervantes MD Jul 29, 2019 13:06
--- NOTE | 2019-07-29 13:49 | NUR ---
*-* INSURANCE *-* ALL AVAILABLE CLINICALS HAVE BEEN FAXED TO: [facility]#[phone] fax#[phone]
--- NOTE | 2019-07-29 13:58 | NUR ---
RD ASSESSMENT & RECOMMENDATIONS SEE CARE ACTIVITY FOR COMPLETE ASSESSMENT DAILY ESTIMATED NEEDS: Needs based on cardiac, 69kg abw 25-30 kcals/kg 2472-8214 total kcals 1-1.2 g protein/kg 69-83 g total protein 25-30 mL/kg 7306-3704 total fluid mLs NUTRITION DIAGNOSIS: Altered nutrition related lab values R/T dehydration, HTN, clinical condition as evidenced by elev creat (1.8 -> 2.0), elev T bili (1.1 -> wnl), elev BPs (220/110 -> now improved), low K (3.3 -> wnl), elev total creatine kinase (2240 ->440-> now wnl). PO DIET RECOMMENDATIONS: LOW NA/ texture as tolerated ADDITIONAL RECOMMENDATIONS: * Calibrated bedscale wt * Advance diet in a timely manner: on CLD at this time, no GI issues * Monitor lytes, replete as needed * Check A1C: mildly elev FBGs (132, 148) upon adm * Monitor for bowel movement, none recorded from 07/21 Bowel regimen if needed * Add Ensure qdaily w/ continued variable po intake
--- NOTE | 2019-07-29 17:00 | NUR ---
NURSE NOTES: Addendum: 07/29/19 at 1834 by KEYA PAGAN LVN brooke $101. and two(2) credit cards in the safe. LUCY Alves present and patient signed and receipt placed in the chart.
--- NOTE | 2019-07-29 18:43 | Nephrology Progress Note ---
Assessment/Plan Problem List: (1) Hypertension, benign (2) Toxic metabolic encephalopathy (3) Gait abnormality (4) Rhabdomyolysis (5) JERMAINE (acute kidney injury) (6) Dehydration (7) Episode of generalized weakness (8) Bacteremia due to Staphylococcus (9) CKD (chronic kidney disease) stage 3, GFR 30-59 ml/min (10) Urinary retention Plan f/u lab, hydrate, mobilize, try to get coop to po meds lab trend better until 1 /3 rise in creat , ckd3, renal US, mobilize, dickson placed as 800 ml residual , would keep dickson for one week, flomax and finasteride started Subjective Constitutional: Reports: weakness HEENT: Reports: no symptoms Genitourinary: Reports: other - retention Neurologic/Psychiatric: Reports: pre-existing deficit Objective Objective Last 24 Hour Vital Signs Date Time Temp Pulse Resp B/P (MAP) Pulse Ox O2 Delivery O2 Flow Rate FiO2 07/29/19 18:25 154/73 (100) 07/29/19 17:01 160/76 07/29/19 17:01 85 160/76 07/29/19 16:00 97.8 85 17 160/76 (104) 98 07/29/19 13:36 118/77 07/29/19 12:00 97.5 81 17 118/77 (91) 94 07/29/19 09:00 Room Air 07/29/19 08:26 131/73 07/29/19 08:25 84 131/73 07/29/19 08:00 98.0 84 16 131/73 (92) 99 07/29/19 04:00 97.0 84 16 130/78 (95) 98 07/29/19 00:00 97.6 82 12 154/70 (98) 96 07/28/19 21:00 Room Air 07/28/19 20:00 97.5 86 16 144/61 (88) 93 Intake and Output 07/28/19 07/29/19 19:00 07:00 Intake Total 900 ml 300 ml Output Total 800 ml 700 ml Balance 100 ml -400 ml Intake Oral 500 ml IV Total 400 ml 300 ml Output Urine Total 800 ml 700 ml Height (Feet): 5 Height (Inches): 5.00 Weight (Pounds): 180 General Appearance: no apparent distress EENT: normal ENT inspection Neck: normal alignment Cardiovascular: regular rhythm Respiratory/Chest: lungs clear Abdomen: non tender Extremities: no edema 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
--- NOTE | 2019-07-29 19:04 | NUR ---
HAND-OFF: Report given to Gurpreet.
--- NOTE | 2019-07-29 19:10 | NUR ---
NURSE NOTES: Pt. received from ARELY Silva. Pt. AAOx2, watching television at this time, on room air, no signs of pain, no indication of respiratory distress at this time. Walsh intact and draining. IV site left forearm 22g asymptomatic, intact and patent; running 1/2 NS 50cc/hr. Bed is low and locked, side rails x2 up, bed alarm active, and call light is in reach. Will continue to monitor
[2019-07-30] VITALS: BP 138/84
--- NOTE | 2019-07-30 03:36 | NUR ---
NURSE NOTES: Pt. asleep at this time. No indications of pain, no signs of respiratory distress and no SOB. Walsh draining well. Bed is low and locked, side rails x2 up, bed alarm active, and call light is in reach. Will continue to monitor.
[2019-07-30 04:00] VITALS: BP 140/65
--- NOTE | 2019-07-30 06:15 | Progress Note ---
DATE: 07/29/2019 SUBJECTIVE: The patient is in bed. No behavior issues noted. Episodes of anxiety. He is calmer, more manageable. No behavior issues. MENTAL STATUS EXAMINATION: The patient is alert, oriented times self, hospital, and place. Mood is neutral. Affect is flat. Thought process, there is a paucity of thought content. Thought content, no suicidal, homicidal ideation. Cognition is impaired. ASSESSMENT: Stable. PLAN: 1. Continue the Seroquel 25 milligram by mouth at bedtime. 2. Seroquel as needed. 3. We will continue to follow . Nury Mandel M.D. DR: DIANA JOB#: [id number] CC:
[2019-07-30 06:32] LABS: ANION GAP 12 mmol/L (5-15); BLOOD UREA NITROGEN 32 mg/dL (7-18); CALCIUM 8.8 MG/DL (8.5-10.1); CARBON DIOXIDE 21 MMOL/L (21-32); CHLORIDE 110 MMOL/L (98-107); CREATININE 2.1 MG/DL (0.55-1.30); POTASSIUM 4.1 MMOL/L (3.5-5.1); SODIUM 143 MMOL/L (136-145)
--- NOTE | 2019-07-30 07:21 | NUR ---
HAND-OFF: Report given to TONY Silva.
--- NOTE | 2019-07-30 07:35 | NUR ---
NURSE NOTES: Pt. received from ARELY Vázquez. Pt. AAOx3, p;eriods of forgetfulness. watching TV at this time, on room air, no signs of pain, no acute cardio- respiratory distress at this time. Walsh intact and draining well. IV site left forearm 22g asymptomatic, intact and patent; IVF running well 1/2 NS 50cc/hr. Bed is low and locked, siderails x3 up, bed alarm active, and call light is in reach. Will continue to monitor
[2019-07-30 08:00] VITALS: BP 159/82
[2019-07-30] MEDS: HydrALAZINE 50mg tab ORAL SCH ×2 (08:09→17:03)
[2019-07-30] MEDS: Tamsulosin 0.4mg cap ORAL SCH ×2 (08:09→17:03)
[2019-07-30 12:00] VITALS: BP 139/69
--- NOTE | 2019-07-30 14:30 | Nephrology Progress Note ---
Assessment/Plan Problem List: (1) Hypertension, benign (2) Toxic metabolic encephalopathy (3) Gait abnormality (4) Rhabdomyolysis (5) JERMAINE (acute kidney injury) (6) Dehydration (7) Episode of generalized weakness (8) Bacteremia due to Staphylococcus (9) CKD (chronic kidney disease) stage 3, GFR 30-59 ml/min (10) Urinary retention Plan f/u lab, hydrate, mobilize, try to get coop to po meds lab trend better until 1 /3 rise in creat , ckd3, renal US, mobilize, dickson placed as 800 ml residual , would keep dickson for one week, flomax and finasteride started Subjective Constitutional: Reports: weakness HEENT: Reports: no symptoms Genitourinary: Reports: other - retention Neurologic/Psychiatric: Reports: pre-existing deficit Objective Objective Last 24 Hour Vital Signs Date Time Temp Pulse Resp B/P (MAP) Pulse Ox O2 Delivery O2 Flow Rate FiO2 07/30/19 12:00 98.1 78 16 139/69 (92) 97 07/30/19 09:00 Room Air 07/30/19 08:09 159/82 07/30/19 08:09 79 159/82 07/30/19 08:00 98.6 79 16 159/82 (107) 98 07/30/19 04:00 98.6 68 19 140/65 (90) 94 07/30/19 00:00 98.6 80 16 138/84 (102) 93 07/29/19 21:00 Room Air 07/29/19 20:00 98.4 88 17 160/79 (106) 94 07/29/19 18:25 154/73 (100) 07/29/19 17:01 160/76 07/29/19 17:01 85 160/76 07/29/19 16:00 97.8 85 17 160/76 (104) 98 Intake and Output 07/29/19 07/30/19 19:00 07:00 Intake Total 1600 ml 590 ml Output Total 950 ml Balance 1600 ml -360 ml Intake Oral 1000 ml 240 ml IV Total 600 ml 350 ml Output Urine Total 950 ml # Voids 1 Laboratory Tests 07/30/19 05:40: Sodium Level 143, Potassium Level 4.1, Chloride Level 110H, Carbon Dioxide Level 21, Anion Gap 12, Blood Urea Nitrogen 32H, Creatinine 2.1H, Estimat Glomerular Filtration Rate , Glucose Level 99, Calcium Level 8.8 Height (Feet): 5 Height (Inches): 5.00 Weight (Pounds): 173 General Appearance: no apparent distress EENT: normal ENT inspection Neck: normal alignment Cardiovascular: normal rate Respiratory/Chest: lungs clear Abdomen: non tender, soft 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
[2019-07-30 16:00] VITALS: BP 158/72
--- NOTE | 2019-07-30 16:50 | NUR ---
CASE MANAGEMENT: REVIEW 07/30/2019 SI: TOXIC METABOLIC ENCEPHALOPATHY . RHABDOMYOLYSIS . JERMAINE . DEHYDRATION . 98.2 87 17 158/72 97% ON RA BUN 32 CREAT 2.1 CL-110 IS:IV NS @50ML/HR NORVASC PO BID HYDRALAZINE PO BID PROSCAR PO QD SEROQUEL PO QHS CATAPRES TD QWK \: 4E MED SURG DCP: SNF PLACEMENT PLAN: NEURO CHECKS PT/OT EVAL AND TREAT CONTROL BP
[2019-07-30 20:00] VITALS: BP 154/68
--- NOTE | 2019-07-30 20:17 | NUR ---
NURSE NOTES: RECEIVED PATIENT FROM ARELY DRUMMOND. PT IS AWAKE, AAOX3, ON ROOM AIR, NO ACUTE DISTRESS NOTED. MARQUEZ IS INTACT AND PATENT, MARQUEZ ANCHOR IN PLACE, DRAINING WELL. IV ON LEFT FA IS INTACT AND PATENT. BED IS LOCKED AND LOW, BED ALARMS ACTIVE, SIDE RAILS UP X2, AND CALL LIGHT IS WITHIN REACH. WILL CONTINUE TO MONITOR.
[2019-07-31] VITALS: BP 146/66
[2019-07-31 04:00] VITALS: BP 169/84
--- NOTE | 2019-07-31 07:29 | NUR ---
NURSE NOTES: Patient in supine position, awake and alert, no c/o pain, no SOB, breakfast at bedside, Walsh catheter in place, bed in lowest position, call light within reach, IV on left forearm 22 gauge running 1/2 NS@50cc/hour.
--- NOTE | 2019-07-31 07:56 | NUR ---
HAND-OFF: Report given to ARELY HELMS.
[2019-07-31 08:00] VITALS: BP 151/73
[2019-07-31] MEDS: Tamsulosin 0.4mg cap ORAL SCH ×2 (08:37→18:27)
[2019-07-31] MEDS: HydrALAZINE 50mg tab ORAL SCH ×2 (08:38→18:27)
[2019-07-31 12:00] VITALS: BP 141/67
--- NOTE | 2019-07-31 12:19 | NUR ---
CASE MANAGEMENT: REVIEW 07/31/2019 SI: TOXIC METABOLIC ENCEPHALOPATHY . RHABDOMYOLYSIS . JERMAINE . DEHYDRATION . HTN 98.0 67 19 151/73 100% ON RA IS:IV NS @50ML/HR NORVASC PO BID HYDRALAZINE PO BID PROSCAR PO QD SEROQUEL PO QHS CATAPRES TD QWK FLOMAX PO BID SEROQUEL QHS \: 4E MED SURG DCP: SNF PLACEMENT PLAN: NEURO CHECKS PT/OT EVAL AND TREAT CONTROL BP
[2019-07-31 16:00] VITALS: BP 143/66
--- NOTE | 2019-07-31 16:08 | Nephrology Progress Note ---
Assessment/Plan Problem List: (1) Hypertension, benign (2) Toxic metabolic encephalopathy (3) Gait abnormality (4) Rhabdomyolysis (5) JERMAINE (acute kidney injury) (6) Dehydration (7) Episode of generalized weakness (8) Bacteremia due to Staphylococcus (9) CKD (chronic kidney disease) stage 3, GFR 30-59 ml/min (10) Urinary retention Plan f/u lab, hydrate, mobilize, try to get coop to po meds lab trend better until 1 /3 rise in creat , ckd3, renal US, mobilize, dickson placed as 800 ml residual , would keep dickson for one week, flomax and finasteride started Subjective ROS Limited/Unobtainable: Yes Objective Objective Last 24 Hour Vital Signs Date Time Temp Pulse Resp B/P (MAP) Pulse Ox O2 Delivery O2 Flow Rate FiO2 07/31/19 12:00 97.6 85 19 141/67 (91) 96 07/31/19 09:00 Room Air 07/31/19 08:38 151/73 07/31/19 08:37 67 151/73 07/31/19 08:00 98.0 67 19 151/73 (99) 100 07/31/19 04:00 97.6 78 16 169/84 (112) 94 07/31/19 00:00 97.8 79 16 146/66 (92) 96 07/30/19 21:00 Room Air 07/30/19 20:00 97.9 81 16 154/68 (96) 97 07/30/19 17:03 158/72 07/30/19 17:03 87 158/72 Intake and Output 07/30/19 07/31/19 19:00 07:00 Intake Total 1600 ml 400 ml Output Total 850 ml 700 ml Balance 750 ml -300 ml Intake Oral 1000 ml IV Total 600 ml 400 ml Output Urine Total 850 ml 700 ml Height (Feet): 5 Height (Inches): 5.00 Weight (Pounds): 173 General Appearance: no apparent distress EENT: normal ENT inspection Neck: normal alignment Cardiovascular: normal rate Respiratory/Chest: lungs clear Abdomen: non tender 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
--- NOTE | 2019-07-31 19:27 | Pulmonology Progress Note ---
Assessment/Plan Problems: (1) Rhabdomyolysis (2) JERMAINE (acute kidney injury) (3) Dehydration (4) Episode of generalized weakness (5) Weakness (6) Gait abnormality (7) Failure to thrive in adult (8) Hypertension, benign (9) Toxic metabolic encephalopathy (10) Bacteremia due to Staphylococcus Assessment/Plan Assessment/Plan 1. Dehydration. 2. Acute rhabdomyolysis. 3. Hyperproteinemia, possible myeloma. 4. Lactic acidosis, resolved. 5. Hypertension. 6. Delirium monitor encourage compliannce with treatment BP control IVF hydration, F/U renal recs, ? Bx social service, PT/OT --> dispo planning to SNF Will need age appropriate malignancy screening and primary care as an outpatient Subjective Allergies: Coded Allergies: No Known Allergies (Unverified , 07/21/19) Subjective AFVSS on RA nishi PO AML pending NAEO AFVSS on RA No F/C/CP/SOB/N/V/D/C/abd pain/urinary complaints Objective Last 24 Hour Vital Signs Date Time Temp Pulse Resp B/P (MAP) Pulse Ox O2 Delivery O2 Flow Rate FiO2 07/31/19 18:28 84 143/66 07/31/19 18:27 143/66 07/31/19 16:00 97.5 84 18 143/66 (91) 95 07/31/19 12:00 97.6 85 19 141/67 (91) 96 07/31/19 09:00 Room Air 07/31/19 08:38 151/73 07/31/19 08:37 67 151/73 07/31/19 08:00 98.0 67 19 151/73 (99) 100 07/31/19 04:00 97.6 78 16 169/84 (112) 94 07/31/19 00:00 97.8 79 16 146/66 (92) 96 07/30/19 21:00 Room Air 07/30/19 20:00 97.9 81 16 154/68 (96) 97 Intake and Output 07/30/19 07/31/19 19:00 07:00 Intake Total 1600 ml 400 ml Output Total 850 ml 700 ml Balance 750 ml -300 ml Intake Oral 1000 ml IV Total 600 ml 400 ml Output Urine Total 850 ml 700 ml General Appearance: no acute distress, cachetic HEENT: normocephalic, atraumatic, anicteric, mucous membranes moist Respiratory/Chest: chest wall non-tender, lungs clear, normal breath sounds, no respiratory distress, no accessory muscle use Cardiovascular: normal peripheral pulses, normal rate, regular rhythm Abdomen: normal bowel sounds, soft, non tender, no organomegaly, non distended , no mass Extremities: no cyanosis, no clubbing, no edema Current Medications Medications (Trade) Dose Ordered Sig/Hanh Route PRN Reason Start Time Stop Time Status Last Admin Dose Admin Amlodipine Besylate (Norvasc) 10 mg BID ORAL 07/26/19 18:00 08/25/19 17:59 07/31/19 18:28 Clonidine HCl (Catapres TTS-3) 1 patch QWEEK TDERMAL 07/22/19 12:00 08/21/19 11:59 07/29/19 13:36 Finasteride (Proscar) 5 mg DAILY ORAL 07/28/19 09:00 08/27/19 08:59 07/31/19 08:37 Hydralazine HCl (Apresoline) 100 mg BID ORAL 07/26/19 18:00 08/25/19 17:59 07/31/19 18:27 Quetiapine Fumarate (SEROqueL) 25 mg Q6H PRN ORAL For Anxiety 07/22/19 12:45 08/21/19 12:44 Quetiapine Fumarate (SEROqueL) 25 mg QHS ORAL 07/21/19 21:00 08/20/19 20:59 07/30/19 21:19 Sodium Chloride 1,000 ml @ 50 mls/hr Q20H IV 07/26/19 12:30 08/25/19 12:29 07/31/19 12:48 Tamsulosin HCl (Flomax) 0.4 mg BID ORAL 07/27/19 18:00 08/26/19 17:59 07/31/19 18:27 Shiraz Cervantes MD Jul 31, 2019 19:26
--- NOTE | 2019-07-31 19:30 | NUR ---
NURSE NOTES: RECEIVED PATIENT FROM ARELY QUINTANILLA. PT IS AWAKE, AAOX4, ON ROOM AIR, NO ACUTE DISTRESS NOTED. IV ON LEFT FOREARM IS INTACT AND PATENT. BED IS LOCKED AND LOW, BED ALARMS ACTIVE, SIDE RAILS UP X2 AND CALL LIGHT IS WITHIN REACH. WILL CONTINUE TO MONITOR.
--- NOTE | 2019-07-31 19:56 | NUR ---
HAND-OFF: Report given to [place] Barillas RN. Patient sitting up in bed, watching television, awake and alert, no c/o pain, no SOB, IV patent in left forearm 22 gauge running fluids.
[2019-07-31 20:00] VITALS: BP 131/63
[2019-08-01] VITALS: BP 133/65
--- NOTE | 2019-08-01 02:00 | Progress Note ---
DATE: 07/31/2019 SUBJECTIVE: The patient is more alert, watching TV, in no acute distress. He has episodes of anxiety. Compliant with medication. MENTAL STATUS EXAMINATION: The patient is alert and oriented times to self, place, and date. Mood is neutral to anxious. Affect is constricted, congruent with mood. Thought process, linear and goal oriented. Thought content, no suicidal or homicidal ideation. No delusions. No auditory or visual hallucinations. Cognition is improved. Insight and judgment is fair. ASSESSMENT: Acute encephalopathy, improved. PLAN: 1. We will continue the Seroquel. 2. Provide the patient with reality orientation and supportive therapy. Nury Mandel M.D. DR: DORA JOB#: [id number] CC:
[2019-08-01 04:00] VITALS: BP 134/73
[2019-08-01 07:10] LABS: ANION GAP 9 mmol/L (5-15); BLOOD UREA NITROGEN 35 mg/dL (7-18); CALCIUM 8.9 MG/DL (8.5-10.1); CARBON DIOXIDE 24 MMOL/L (21-32); CHLORIDE 107 MMOL/L (98-107); CREATININE 2.3 MG/DL (0.55-1.30); POTASSIUM 4.2 MMOL/L (3.5-5.1); SODIUM 140 MMOL/L (136-145)
--- NOTE | 2019-08-01 07:40 | NUR ---
NURSE NOTES: Report received from Addendum: 08/01/19 at 0752 by Jovanny Suárez RN saved before completion. Report received from [facility] RN. Patient awake and alert x 4 sitting in high fowlers position in bed. Patient set up to eat breakfast. Patient states that he will be able to feed self breakfast. 22 sunshine IV noted in left forearm with IV fluids running per MD orders. Patient has no complaints at this time. call light within reach. Bed locked, alarmed, and in lowest position. Will continue to follow plan of care.
[2019-08-01 08:00] VITALS: BP 143/76
--- NOTE | 2019-08-01 08:11 | NUR ---
HAND-OFF: Report given to ARELY Petty.
[2019-08-01] MEDS: HydrALAZINE 50mg tab ORAL SCH ×2 (10:39→18:12)
[2019-08-01] MEDS: Tamsulosin 0.4mg cap ORAL SCH ×2 (10:39→18:11)
--- NOTE | 2019-08-01 11:31 | NUR ---
*-* INSURANCE *-* ALL AVAILABLE CLINICALS HAVE BEEN FAXED TO: [facility]#[phone] fax#[phone]
[2019-08-01 12:00] VITALS: BP 156/69
--- NOTE | 2019-08-01 12:19 | NUR ---
CASE MANAGEMENT: REVIEW 08/01/2019 SI: TOXIC METABOLIC ENCEPHALOPATHY . RHABDOMYOLYSIS . JERMAINE . DEHYDRATION . HTN 98.5 73 16 134/73 100% ON RA BUN 35 CREAT 2.3 IS:IV NS @50ML/HR NORVASC PO BID HYDRALAZINE PO BID PROSCAR PO QD SEROQUEL PO QHS CATAPRES TD QWK FLOMAX PO BID SEROQUEL QHS \: 4E MED SURG DCP: SNF PLACEMENT PLAN: NEURO CHECKS PT/OT EVAL AND TREAT - SNF PLACEMENT BY HCP CONTROL BP
--- NOTE | 2019-08-01 12:23 | NUR ---
DISCHARGE PLANNING: SPOKE TO [facility] (HCP) T: [phone] WILLIE STALLINGS AIR CONDITIONING SUPERVISOR IS ACTIVELY SEEKING SNF PLACEMENT POST DISCHARGE CHANDRAKANT TAPIA WILL CONTACT NURSING STATION OVER THE WEEKEND ONCE FACILITY IS AVAILABLE NURSES PLEASE COORDINATE DISCHARGE WITH WILLIE
--- NOTE | 2019-08-01 12:47 | Nephrology Progress Note ---
Assessment/Plan Problem List: (1) Hypertension, benign (2) Toxic metabolic encephalopathy (3) Gait abnormality (4) Rhabdomyolysis (5) JERMAINE (acute kidney injury) (6) Dehydration (7) Episode of generalized weakness (8) Bacteremia due to Staphylococcus (9) CKD (chronic kidney disease) stage 3, GFR 30-59 ml/min (10) Urinary retention Plan f/u lab, hydrate, mobilize, try to get coop to po meds lab trend better until 1 /3 rise in creat , ckd3, renal US, mobilize, dickson placed as 800 ml residual , would keep dickson for one week, flomax and finasteride started Subjective Constitutional: Reports: weakness HEENT: Reports: no symptoms Genitourinary: Reports: other - retention Neurologic/Psychiatric: Reports: pre-existing deficit Objective Objective Last 24 Hour Vital Signs Date Time Temp Pulse Resp B/P (MAP) Pulse Ox O2 Delivery O2 Flow Rate FiO2 08/01/19 10:39 143/76 08/01/19 10:38 76 143/76 08/01/19 09:00 Room Air 08/01/19 08:00 97.8 76 20 143/76 (98) 100 08/01/19 04:00 98.5 73 16 134/73 (93) 100 08/01/19 00:00 97.8 78 17 133/65 (87) 96 07/31/19 21:00 Room Air 07/31/19 20:00 97.6 78 17 131/63 (85) 96 07/31/19 18:28 84 143/66 07/31/19 18:27 143/66 07/31/19 16:00 97.5 84 18 143/66 (91) 95 Intake and Output 07/31/19 08/01/19 19:00 07:00 Intake Total 308 ml 350 ml Output Total 600 ml 1800 ml Balance -292 ml -1450 ml IV Total 308 ml 350 ml Output Urine Total 600 ml 1800 ml Laboratory Tests 08/01/19 06:05: Sodium Level 140, Potassium Level 4.2, Chloride Level 107, Carbon Dioxide Level 24, Anion Gap 9, Blood Urea Nitrogen 35H, Creatinine 2.3H, Estimat Glomerular Filtration Rate , Glucose Level 102, Calcium Level 8.9 Height (Feet): 5 Height (Inches): 5.00 Weight (Pounds): 173 General Appearance: no apparent distress EENT: normal ENT inspection Neck: normal alignment Cardiovascular: regular rhythm Respiratory/Chest: lungs clear Abdomen: non tender Extremities: no edema Neurologic: patient account representative II-XII grossly normal Arthur Bethea MD Aug 01, 2019 12:47
--- NOTE | 2019-08-01 15:15 | Pulmonology Progress Note ---
Assessment/Plan Problems: (1) Rhabdomyolysis (2) JERMAINE (acute kidney injury) (3) Dehydration (4) Episode of generalized weakness (5) Weakness (6) Gait abnormality (7) Failure to thrive in adult (8) Hypertension, benign (9) Toxic metabolic encephalopathy (10) Bacteremia due to Staphylococcus Assessment/Plan Assessment/Plan 1. Dehydration - RESOLVED 2. Acute rhabdomyolysis - RESOLVED 3. Hyperproteinemia, possible myeloma 4. Lactic acidosis -RESOLVED 5. Hypertension - POORLY CONTROLLED 6. Delirium - IMPROVED 7. JERMAINE vs CKD, likely both 8. Obstructive uropathy D/W Dr. Bethea ---> voiding trial in am, continue Finasteride and Flomas mIVF per renal If voids and Cr stable can be DC'd to SNF Will need an outpatient eval Needs age appropriate malignancy screening and primary care as an outpatient BP control PT re-eval DVT Px: Hep SQ Dispo planning to SNFl Subjective Allergies: Coded Allergies: No Known Allergies (Unverified , 07/21/19) Subjective AFVSS x elevated BP on RA nishi PO Cr worse has not been OOB No F/C/CP/SOB/N/V/D/C/abd pain/urinary complaints Objective Last 24 Hour Vital Signs Date Time Temp Pulse Resp B/P (MAP) Pulse Ox O2 Delivery O2 Flow Rate FiO2 08/01/19 10:39 143/76 08/01/19 10:38 76 143/76 08/01/19 09:00 Room Air 08/01/19 08:00 97.8 76 20 143/76 (98) 100 08/01/19 04:00 98.5 73 16 134/73 (93) 100 08/01/19 00:00 97.8 78 17 133/65 (87) 96 07/31/19 21:00 Room Air 07/31/19 20:00 97.6 78 17 131/63 (85) 96 07/31/19 18:28 84 143/66 07/31/19 18:27 143/66 07/31/19 16:00 97.5 84 18 143/66 (91) 95 Intake and Output 07/31/19 08/01/19 19:00 07:00 Intake Total 308 ml 350 ml Output Total 600 ml 1800 ml Balance -292 ml -1450 ml IV Total 308 ml 350 ml Output Urine Total 600 ml 1800 ml General Appearance: WD/WN, no acute distress HEENT: normocephalic, atraumatic, anicteric, mucous membranes moist Respiratory/Chest: chest wall non-tender, lungs clear, normal breath sounds, no respiratory distress, no accessory muscle use Cardiovascular: normal peripheral pulses, normal rate, regular rhythm Abdomen: normal bowel sounds, soft, non tender, no organomegaly, non distended , no mass Extremities: no cyanosis, no clubbing, no edema Laboratory Tests 08/01/19 06:05: Sodium Level 140, Potassium Level 4.2, Chloride Level 107, Carbon Dioxide Level 24, Anion Gap 9, Blood Urea Nitrogen 35H, Creatinine 2.3H, Estimat Glomerular Filtration Rate , Glucose Level 102, Calcium Level 8.9 Current Medications Medications (Trade) Dose Ordered Sig/Hanh Route PRN Reason Start Time Stop Time Status Last Admin Dose Admin Amlodipine Besylate (Norvasc) 10 mg BID ORAL 07/26/19 18:00 08/25/19 17:59 08/01/19 10:38 Clonidine HCl (Catapres TTS-3) 1 patch QWEEK TDERMAL 07/22/19 12:00 08/21/19 11:59 07/29/19 13:36 Finasteride (Proscar) 5 mg DAILY ORAL 07/28/19 09:00 08/27/19 08:59 08/01/19 10:39 Hydralazine HCl (Apresoline) 100 mg BID ORAL 07/26/19 18:00 08/25/19 17:59 08/01/19 10:39 Quetiapine Fumarate (SEROqueL) 25 mg Q6H PRN ORAL For Anxiety 07/22/19 12:45 08/21/19 12:44 Quetiapine Fumarate (SEROqueL) 25 mg QHS ORAL 07/21/19 21:00 08/20/19 20:59 07/31/19 21:01 Sodium Chloride 1,000 ml @ 50 mls/hr Q20H IV 07/26/19 12:30 08/25/19 12:29 07/31/19 12:48 Tamsulosin HCl (Flomax) 0.4 mg BID ORAL 07/27/19 18:00 08/26/19 17:59 08/01/19 10:39 Shiraz Cervantes MD Aug 01, 2019 15:15
[2019-08-01 16:00] VITALS: BP 134/66
[2019-08-01 16:41] LABS: APPEARANCE,URINE CLEAR; BILIRUBIN, URINE NEGATIVE (NEGATIVE); COLOR,URINE PALE YELLOW; GLUCOSE, URINE (UA) NEGATIVE (NEGATIVE); KETONES,URINE NEGATIVE (NEGATIVE); LEUKOCYTE ESTERASE ,URINE NEGATIVE (NEGATIVE); NITRITE,URINE NEGATIVE (NEGATIVE); PH,URINE 5 (4.5-8.0); PROTEIN,URINE NEGATIVE (NEGATIVE); UROBILINOGEN,URINE NORMAL MG/DL (0.0-1.0)
--- NOTE | 2019-08-01 19:20 | NUR ---
HAND-OFF: Report given to [place] RN.Patient in stable condition.
--- NOTE | 2019-08-01 19:42 | NUR ---
NURSE NOTES: RECEIVED PT FROM ARELY MISTYR. PT IS AWAKE, AAOX4, ON ROOM AIR, NO ACUTE DISTRESS NOTED. PATIENT DENIES PAIN AT THE MOMENT. IV ON LEFT FOREARM IS INTACT AND PATENT. MARQUEZ IS INTACT AND PATENT, DRAINING WELL. BED IS LOCKED AND LOW, BED ALARMS ACTIVE, SIDE RAILS UP X2 AND CALL LIGHT IS WITHIN REACH. WILL CONTINUE TO MONITOR.
[2019-08-01 20:00] VITALS: BP 159/69
[2019-08-01] MEDS: Heparin 5000 units/ml inj SUBQ SCH (21:22)
[2019-08-02] VITALS: BP 154/64
--- NOTE | 2019-08-02 01:15 | Progress Note ---
DATE: 08/01/2019 SUBJECTIVE: The patient presents to the hospital actually with walker. The patient is in bed. Able to answer the questions, more alert. MENTAL STATUS EXAMINATION: Mood is dysphoric. Affect is constricted. Congruent with mood. Thought process is concrete. Thought content, no suicidal or homicidal ideation. Cognition is impaired. Insight and judgment are impaired. ASSESSMENT: Acute encephalopathy, improved. PLAN: 1. We will continue current psychotropic medications. 2. Provide the patient with reality orientation and supportive therapy. 3. Discussed with the nurse. Nury Mandel M.D. DR: AKUA JOB#: [id number] CC:
[2019-08-02 04:00] VITALS: BP 132/65
--- NOTE | 2019-08-02 07:51 | NUR ---
HAND-OFF: Report given to ARELY Kwong. Patient is in stable condition. Endorsed plan of care.
--- NOTE | 2019-08-02 07:55 | NUR ---
NURSE NOTES: received patient on bed, awake. IV site intact and patent. Bed in low and locked position, call light in reach. SCD's off, patient did not want them on. No signs of respiratory distress, patient denies pain. Room board updated, will continue to monitor.
[2019-08-02 08:00] VITALS: BP 139/72
[2019-08-02] MEDS: Tamsulosin 0.4mg cap ORAL SCH ×2 (09:42→18:08)
[2019-08-02] MEDS: HydrALAZINE 50mg tab ORAL SCH ×2 (09:42→18:08)
[2019-08-02] MEDS: Heparin 5000 units/ml inj SUBQ SCH ×2 (09:44→21:24)
[2019-08-02 12:00] VITALS: BP 132/64
--- NOTE | 2019-08-02 13:48 | NUR ---
NURSE NOTES: Bladder scanned the patient and had reading of 381mL. MD Bethea was advised and he stated to check him again at 1700 and 1800 hours if he has not voided. Charge nurse made aware. Patient was advised to let staff know if any voiding occurred, voluntary or involuntary. Patient verbalized understanding.
--- NOTE | 2019-08-02 13:54 | Nephrology Progress Note ---
Assessment/Plan Problem List: (1) Hypertension, benign (2) Toxic metabolic encephalopathy (3) Gait abnormality (4) Rhabdomyolysis (5) JERMAINE (acute kidney injury) (6) Dehydration (7) Episode of generalized weakness (8) Bacteremia due to Staphylococcus (9) CKD (chronic kidney disease) stage 3, GFR 30-59 ml/min (10) Urinary retention Plan f/u lab, , mobilize, try to get coop to po meds lab trend better until 1/3 rise in creat , ckd3, renal US, mobilize, dickson placed as 800 ml residual , would keep dickson for one week, flomax and finasteride started, voiding trial so far bladder residual 350 check again later, add urecholine Subjective ROS Limited/Unobtainable: Yes Objective Objective Last 24 Hour Vital Signs Date Time Temp Pulse Resp B/P (MAP) Pulse Ox O2 Delivery O2 Flow Rate FiO2 08/02/19 12:00 98.2 85 20 132/64 (86) 96 08/02/19 09:43 72 139/72 08/02/19 09:42 139/72 08/02/19 09:00 Room Air 08/02/19 08:00 98.6 72 20 139/72 (94) 96 08/02/19 04:00 98.4 72 17 132/65 (87) 97 08/02/19 00:00 97.4 83 18 154/64 (94) 97 08/01/19 21:00 Room Air 08/01/19 20:00 97.3 96 18 159/69 (99) 97 08/01/19 18:12 134/66 08/01/19 18:12 90 134/66 08/01/19 16:00 97.8 90 20 134/66 (88) 95 Intake and Output 08/01/19 08/02/19 19:00 07:00 Intake Total 1220 ml 500 ml Output Total 1100 ml 2100 ml Balance 120 ml -1600 ml Intake Oral 820 ml IV Total 400 ml 500 ml Output Urine Total 1100 ml 2100 ml Laboratory Tests 08/01/19 15:54: Urine Color Pale yellow, Urine Appearance Clear, Urine pH 5, Urine Specific [place] 1.010, Urine Protein Negative, Urine Glucose (UA) Negative, Urine Ketones Negative, Urine Blood 1+H, Urine Nitrite Negative, Urine Bilirubin Negative, Urine Urobilinogen Normal, Urine Leukocyte Esterase Negative, Urine RBC 0-2H, Urine WBC 0-2, Urine Squamous Epithelial Cells None, Urine Bacteria None Height (Feet): 5 Height (Inches): 5.00 Weight (Pounds): 173 General Appearance: no apparent distress, alert, confused EENT: normal ENT inspection Neck: normal alignment Cardiovascular: normal rate Respiratory/Chest: lungs clear Abdomen: non tender Extremities: no edema 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
[2019-08-02] MEDS: Bethanechol 25mg Tab ORAL SCH ×2 (14:23→18:07)
--- NOTE | 2019-08-02 14:56 | Pulmonology Progress Note ---
Assessment/Plan Problems: (1) Rhabdomyolysis (2) JERMAINE (acute kidney injury) (3) Dehydration (4) Episode of generalized weakness (5) Weakness (6) Gait abnormality (7) Failure to thrive in adult (8) Hypertension, benign (9) Toxic metabolic encephalopathy (10) Bacteremia due to Staphylococcus Assessment/Plan Assessment/Plan 1. Dehydration - RESOLVED 2. Acute rhabdomyolysis - RESOLVED 3. Hyperproteinemia, possible myeloma 4. Lactic acidosis -RESOLVED 5. Hypertension - POORLY CONTROLLED 6. Delirium - IMPROVED 7. JERMAINE vs CKD, likely both 8. Obstructive uropathy D/W Dr. Bethea ---> voiding trial underway , continue Finasteride, Flomax and Bethanachol mIVF per renal If voids and Cr stable can be DC'd to SNF Will need an outpatient eval Needs age appropriate malignancy screening and primary care as an outpatient BP control PT re-eval DVT Px: Hep SQ Dispo planning to SNF Subjective Allergies: Coded Allergies: No Known Allergies (Unverified , 07/21/19) Subjective AFVSS onn RA nishi PO Voiding trial underway No F/C/CP/SOB/N/V/D/C/abd pain/urinary complaints Objective Last 24 Hour Vital Signs Date Time Temp Pulse Resp B/P (MAP) Pulse Ox O2 Delivery O2 Flow Rate FiO2 08/02/19 12:00 98.2 85 20 132/64 (86) 96 08/02/19 09:43 72 139/72 08/02/19 09:42 139/72 08/02/19 09:00 Room Air 08/02/19 08:00 98.6 72 20 139/72 (94) 96 08/02/19 04:00 98.4 72 17 132/65 (87) 97 08/02/19 00:00 97.4 83 18 154/64 (94) 97 08/01/19 21:00 Room Air 08/01/19 20:00 97.3 96 18 159/69 (99) 97 08/01/19 18:12 134/66 08/01/19 18:12 90 134/66 08/01/19 16:00 97.8 90 20 134/66 (88) 95 Intake and Output 08/01/19 08/02/19 19:00 07:00 Intake Total 1220 ml 500 ml Output Total 1100 ml 2100 ml Balance 120 ml -1600 ml Intake Oral 820 ml IV Total 400 ml 500 ml Output Urine Total 1100 ml 2100 ml General Appearance: WD/WN, no acute distress HEENT: normocephalic, atraumatic, anicteric, mucous membranes moist Respiratory/Chest: chest wall non-tender, lungs clear, normal breath sounds, no respiratory distress, no accessory muscle use Cardiovascular: normal peripheral pulses, normal rate, regular rhythm Abdomen: normal bowel sounds, soft, non tender, no organomegaly, non distended , no mass Extremities: no cyanosis, no clubbing, no edema Microbiology Date/Time Source Procedure Growth Status 08/01/19 15:54 Indwelling Cath Urine Culture - Preliminary NO GROWTH Resulted Laboratory Tests 08/01/19 15:54: Urine Color Pale yellow, Urine Appearance Clear, Urine pH 5, Urine Specific [place] 1.010, Urine Protein Negative, Urine Glucose (UA) Negative, Urine Ketones Negative, Urine Blood 1+H, Urine Nitrite Negative, Urine Bilirubin Negative, Urine Urobilinogen Normal, Urine Leukocyte Esterase Negative, Urine RBC 0-2H, Urine WBC 0-2, Urine Squamous Epithelial Cells None, Urine Bacteria None Current Medications Medications (Trade) Dose Ordered Sig/Hanh Route PRN Reason Start Time Stop Time Status Last Admin Dose Admin Amlodipine Besylate (Norvasc) 10 mg BID ORAL 07/26/19 18:00 08/25/19 17:59 08/02/19 09:43 Bethanechol Chloride (Urecholine) 25 mg THREE TIMES A DAY ORAL 08/02/19 14:00 09/01/19 13:59 08/02/19 14:23 Clonidine HCl (Catapres TTS-3) 1 patch QWEEK TDERMAL 07/22/19 12:00 08/21/19 11:59 07/29/19 13:36 Finasteride (Proscar) 5 mg DAILY ORAL 07/28/19 09:00 08/27/19 08:59 08/02/19 09:43 Heparin Sodium (Porcine) (Heparin 5000 units/ml) 5,000 units EVERY 12 HOURS SUBQ 08/01/19 21:00 08/31/19 20:59 08/02/19 09:44 Hydralazine HCl (Apresoline) 100 mg BID ORAL 07/26/19 18:00 08/25/19 17:59 08/02/19 09:42 Quetiapine Fumarate (SEROqueL) 25 mg Q6H PRN ORAL For Anxiety 07/22/19 12:45 08/21/19 12:44 Quetiapine Fumarate (SEROqueL) 25 mg QHS ORAL 07/21/19 21:00 08/20/19 20:59 08/01/19 21:20 Sodium Chloride 1,000 ml @ 50 mls/hr Q20H IV 07/26/19 12:30 08/25/19 12:29 08/02/19 12:28 Tamsulosin HCl (Flomax) 0.4 mg BID ORAL 07/27/19 18:00 08/26/19 17:59 08/02/19 09:42 Shiraz Cervantes MD Aug 02, 2019 14:56
[2019-08-02 16:20] VITALS: BP 145/72
--- NOTE | 2019-08-02 17:16 | NUR ---
NURSE NOTES: Patient still has not voided. Will recheck after dinner. patient encouraged to reposition himself to assist in voiding and to notify staff if he does.
--- NOTE | 2019-08-02 18:26 | NUR ---
NURSE NOTES: Bladder scanned patient per MD order. 481ml shown. Will scan at 2000 if no void before and endorse to insert dickson catheter per MD Bethea's order. Charge nurse aware. Diuretic medications given.
--- NOTE | 2019-08-02 18:52 | NUR ---
NURSE NOTES: Patient voided 500mL. Addendum: 08/02/19 at 1940 by JAMAR BRAY RN RN Patient had post residual of 51mL.
--- NOTE | 2019-08-02 19:30 | NUR ---
NURSE NOTES: Received pt from ARELY Kwong. AAO x 3, on room air. IV site intact and running IVF. No acute distress noted. Will do bladder scan. Bed locked, lowest position, alarm on, side rails up, call light within reach. Will continue to monitor.
--- NOTE | 2019-08-02 19:56 | NUR ---
HAND-OFF: Report given to ARELY Lucero.
[2019-08-02 20:00] VITALS: BP 126/64
--- NOTE | 2019-08-02 20:00 | NUR ---
NURSE NOTES: Bladder scan done. Post residual 196cc noted.
[2019-08-03] VITALS: BP 141/63
[2019-08-03 04:00] VITALS: BP 135/66
--- NOTE | 2019-08-03 06:58 | NUR ---
NURSE NOTES: Pt voided well x 3.
--- NOTE | 2019-08-03 07:08 | NUR ---
HAND-OFF: Report given to TONY Silva.
--- NOTE | 2019-08-03 07:30 | NUR ---
NURSE NOTES: received patient in bed, A/A/Ox3, forgetful @ times. able to feed self with an upright position. IV site intact and patent. Bed in low and locked position, call light is within reach, No signs of respiratory distress, patient denies pain/discomfort noted. will continue to monitor.
[2019-08-03 08:00] VITALS: BP 138/78
[2019-08-03] MEDS: HydrALAZINE 50mg tab ORAL SCH ×2 (08:35→17:05)
[2019-08-03] MEDS: Bethanechol 25mg Tab ORAL SCH ×3 (08:36→17:06)
[2019-08-03] MEDS: Tamsulosin 0.4mg cap ORAL SCH ×2 (08:36→17:06)
[2019-08-03] MEDS: Heparin 5000 units/ml inj SUBQ SCH ×2 (08:42→21:08)
[2019-08-03 12:06] VITALS: BP 127/61
--- NOTE | 2019-08-03 14:19 | Nephrology Progress Note ---
Assessment/Plan Problem List: (1) Hypertension, benign (2) Toxic metabolic encephalopathy (3) Gait abnormality (4) Rhabdomyolysis (5) JERMAINE (acute kidney injury) (6) Dehydration (7) Episode of generalized weakness (8) Bacteremia due to Staphylococcus (9) CKD (chronic kidney disease) stage 3, GFR 30-59 ml/min (10) Urinary retention Plan f/u lab, , mobilize, try to get coop to po meds lab trend better until 1/3 rise in creat , ckd3, renal US, mobilize, dickson placed as 800 ml residual , would keep dickson for one week, flomax and finasteride started, voiding trial so far bladder residual 350 08/02 then voided check again later, add urecholine Subjective ROS Limited/Unobtainable: Yes Objective Objective Last 24 Hour Vital Signs Date Time Temp Pulse Resp B/P (MAP) Pulse Ox O2 Delivery O2 Flow Rate FiO2 08/03/19 12:06 98.3 68 16 127/61 (83) 97 08/03/19 09:00 Room Air 08/03/19 08:36 71 138/78 08/03/19 08:35 138/78 08/03/19 08:00 98.4 71 19 138/78 (98) 100 08/03/19 04:00 98.4 72 20 135/66 (89) 95 08/03/19 00:00 97.7 81 19 141/63 (89) 93 08/02/19 21:00 Room Air 08/02/19 20:00 98.1 88 19 126/64 (84) 95 08/02/19 18:08 145/72 08/02/19 18:07 86 145/72 08/02/19 16:20 98.0 86 20 145/72 (96) 96 Intake and Output 08/02/19 08/03/19 19:00 07:00 Intake Total 1440 ml 600 ml Output Total 500 ml Balance 940 ml 600 ml Intake Oral 1140 ml IV Total 300 ml 600 ml Output Urine Total 500 ml # Voids 1 3 Height (Feet): 5 Height (Inches): 5.00 Weight (Pounds): 173 General Appearance: alert, confused Neck: normal alignment Cardiovascular: normal rate Respiratory/Chest: lungs clear Abdomen: non tender Extremities: no edema 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
--- NOTE | 2019-08-03 15:18 | NUR ---
NURSE NOTES: PVR on this patient 460ml, inserted dickson as MD ordered. Mary AYALA made aware. Patient shown no acute resp distress noted. No c/o pain/discomfort noted. will cont the plan of care.
[2019-08-03 16:00] VITALS: BP 128/68
--- NOTE | 2019-08-03 19:11 | NUR ---
HAND-OFF: Report given to Nena.
--- NOTE | 2019-08-03 19:13 | NUR ---
NURSE NOTES: Received pt from Shira. AAO x 3, on room air. IV site intact and running IVF. No acute distress noted. Walsh intact and draining yellow urine by gravity. Bed locked, lowest position, alarm on, side rails up, call light within reach. Will continue to monitor.
[2019-08-03 20:00] VITALS: BP 158/70
[2019-08-04] VITALS: BP 134/70
[2019-08-04 04:00] VITALS: BP 130/68
--- NOTE | 2019-08-04 06:38 | NUR ---
NURSE NOTES: Left message to Dr. Cervantes to get an order for constipation. Awaiting for call back.
--- NOTE | 2019-08-04 07:15 | NUR ---
NURSE NOTES: Received patient in bed , patient AAO x 3, RA,IVF on going patent, Walsh intact and draining yellow urine by gravity.on fall precaution, Bed locked, lowest position, alarm on, side rails up, call light within reach. Will continue to monitor. madeleine smith
--- NOTE | 2019-08-04 07:31 | NUR ---
HAND-OFF: Report given to ARELY Meraz.
[2019-08-04 07:53] LABS: ANION GAP 8 mmol/L (5-15); BLOOD UREA NITROGEN 42 mg/dL (7-18); CALCIUM 9.1 MG/DL (8.5-10.1); CARBON DIOXIDE 24 MMOL/L (21-32); CHLORIDE 107 MMOL/L (98-107); CREATININE 2.3 MG/DL (0.55-1.30); POTASSIUM 4.2 MMOL/L (3.5-5.1); SODIUM 139 MMOL/L (136-145)
[2019-08-04 08:30] VITALS: BP 131/83
[2019-08-04] MEDS: Bethanechol 25mg Tab ORAL SCH ×3 (08:35→17:15)
[2019-08-04] MEDS: Tamsulosin 0.4mg cap ORAL SCH ×2 (08:35→17:15)
[2019-08-04] MEDS: HydrALAZINE 50mg tab ORAL SCH ×2 (08:35→17:15)
[2019-08-04] MEDS: Heparin 5000 units/ml inj SUBQ SCH ×2 (08:43→22:04)
[2019-08-04 11:54] VITALS: BP 134/66
--- NOTE | 2019-08-04 13:48 | Pulmonology Progress Note ---
Assessment/Plan Problems: (1) Rhabdomyolysis (2) JERMAINE (acute kidney injury) (3) Dehydration (4) Episode of generalized weakness (5) Weakness (6) Gait abnormality (7) Failure to thrive in adult (8) Hypertension, benign (9) Toxic metabolic encephalopathy (10) Bacteremia due to Staphylococcus Assessment/Plan Assessment/Plan 1. Dehydration - RESOLVED 2. Acute rhabdomyolysis - RESOLVED 3. Hyperproteinemia, possible myeloma 4. Lactic acidosis -RESOLVED 5. Hypertension - POORLY CONTROLLED 6. Delirium - IMPROVED 7. JERMAINE vs CKD, likely both 8. Obstructive uropathy 9. Generalized weakness D/W Dr. Bethea ---> FC x 1 week, continue Finasteride, Flomax and Bethanachol mIVF per renal Will need an outpatient eval Needs age appropriate malignancy screening and primary care as an outpatient BP control PT re-eval DVT Px: Hep SQ Neuro eval Dispo planning to SNF Subjective Allergies: Coded Allergies: No Known Allergies (Unverified , 07/21/19) Subjective AFVSS onn RA nishi PO FC back in No F/C/CP/SOB/N/V/D/C/abd pain/urinary complaints Objective Last 24 Hour Vital Signs Date Time Temp Pulse Resp B/P (MAP) Pulse Ox O2 Delivery O2 Flow Rate FiO2 08/04/19 11:54 97.5 77 18 134/66 (88) 97 08/04/19 08:45 Room Air 08/04/19 08:35 131/83 08/04/19 08:35 83 131/83 08/04/19 08:30 98.9 83 18 131/83 (99) 94 08/04/19 04:00 98.2 86 20 130/68 (88) 94 08/04/19 00:00 98.6 79 18 134/70 (91) 94 08/03/19 21:00 Room Air 08/03/19 20:00 98.0 92 18 158/70 (99) 93 08/03/19 17:06 74 128/68 08/03/19 17:05 128/68 08/03/19 16:00 98.2 74 17 128/68 (88) 99 Intake and Output 08/03/19 08/04/19 19:00 07:00 Intake Total 1100 ml 50 ml Output Total 1200 ml 1600 ml Balance -100 ml -1550 ml Intake Oral 1000 ml IV Total 100 ml 50 ml Output Urine Total 1200 ml 1600 ml General Appearance: WD/WN, no acute distress HEENT: normocephalic, atraumatic, anicteric, mucous membranes moist Respiratory/Chest: chest wall non-tender, lungs clear, normal breath sounds, no respiratory distress, no accessory muscle use Cardiovascular: normal peripheral pulses, normal rate, regular rhythm Abdomen: normal bowel sounds, soft, non tender, no organomegaly, non distended , no mass Extremities: no cyanosis, no clubbing, no edema Microbiology Date/Time Source Procedure Growth Status 08/01/19 15:54 Indwelling Cath Urine Culture - Final NO GROWTH AFTER 48 HOURS Complete Laboratory Tests 08/04/19 07:05: Sodium Level 139, Potassium Level 4.2, Chloride Level 107, Carbon Dioxide Level 24, Anion Gap 8, Blood Urea Nitrogen 42H, Creatinine 2.3H, Estimat Glomerular Filtration Rate , Glucose Level 104, Calcium Level 9.1 Current Medications Medications (Trade) Dose Ordered Sig/Hanh Route PRN Reason Start Time Stop Time Status Last Admin Dose Admin Amlodipine Besylate (Norvasc) 10 mg BID ORAL 07/26/19 18:00 08/25/19 17:59 08/04/19 08:35 Bethanechol Chloride (Urecholine) 25 mg THREE TIMES A DAY ORAL 08/02/19 14:00 09/01/19 13:59 08/04/19 12:09 Clonidine HCl (Catapres TTS-3) 1 patch QWEEK TDERMAL 07/22/19 12:00 08/21/19 11:59 07/29/19 13:36 Finasteride (Proscar) 5 mg DAILY ORAL 07/28/19 09:00 08/27/19 08:59 08/04/19 08:35 Heparin Sodium (Porcine) (Heparin 5000 units/ml) 5,000 units EVERY 12 HOURS SUBQ 08/01/19 21:00 08/31/19 20:59 08/04/19 08:43 Hydralazine HCl (Apresoline) 100 mg BID ORAL 07/26/19 18:00 08/25/19 17:59 08/04/19 08:35 Quetiapine Fumarate (SEROqueL) 25 mg Q6H PRN ORAL For Anxiety 07/22/19 12:45 08/21/19 12:44 Quetiapine Fumarate (SEROqueL) 25 mg QHS ORAL 07/21/19 21:00 08/20/19 20:59 08/03/19 21:07 Sodium Chloride 1,000 ml @ 50 mls/hr Q20H IV 07/26/19 12:30 08/25/19 12:29 08/03/19 21:07 Tamsulosin HCl (Flomax) 0.4 mg BID ORAL 07/27/19 18:00 08/26/19 17:59 08/04/19 08:35 Shiraz Cervantes MD Aug 04, 2019 13:48
--- NOTE | 2019-08-04 15:06 | NUR ---
RD ASSESSMENT & RECOMMENDATIONS SEE CARE ACTIVITY FOR COMPLETE ASSESSMENT DAILY ESTIMATED NEEDS: Needs based on cardiac, 69kg abw 25-30 kcals/kg 8138-4358 total kcals 1-1.2 g protein/kg 69-83 g total protein 25-30 mL/kg 3132-2280 total fluid mLs NUTRITION DIAGNOSIS: Altered nutrition related lab values R/T dehydration, HTN, clinical condition as evidenced by elev creat (1.8 -> 2.0), elev T bili (1.1 -> wnl), elev BPs (220/110 -> now improved), low K (3.3 -> wnl), elev total creatine kinase (2240 ->440-> now wnl). CURRENT DIET:Soft PO DIET RECOMMENDATIONS: LOW NA/ texture as tolerated ADDITIONAL RECOMMENDATIONS: * Calibrated bedscale wt * Monitor lytes, replete as needed * Check A1C: mildly elev FBGs (132, 148) upon adm * Monitor for bowel movement, none recorded from 07/29 Bowel regimen if needed * Add Ensure qdaily w/ continued variable po intake
[2019-08-04 16:14] VITALS: BP 138/62
--- NOTE | 2019-08-04 16:32 | Nephrology Progress Note ---
Assessment/Plan Problem List: (1) Hypertension, benign (2) Toxic metabolic encephalopathy (3) Gait abnormality (4) Rhabdomyolysis (5) JERMAINE (acute kidney injury) (6) Dehydration (7) Episode of generalized weakness (8) Bacteremia due to Staphylococcus (9) CKD (chronic kidney disease) stage 3, GFR 30-59 ml/min (10) Urinary retention Plan f/u lab, , mobilize, try to get coop to po meds lab trend better until 1/3 rise in creat , ckd3, renal US, mobilize, dickson placed as 800 ml residual , would keep dickson for one week, flomax and finasteride started, voiding trial so far bladder residual 350 08/02 then voided check again later, add urecholine, seems to void well now, renal function stable Subjective Constitutional: Reports: weakness HEENT: Reports: no symptoms Genitourinary: Reports: no symptoms Neurologic/Psychiatric: Reports: no symptoms Objective Objective Last 24 Hour Vital Signs Date Time Temp Pulse Resp B/P (MAP) Pulse Ox O2 Delivery O2 Flow Rate FiO2 08/04/19 16:14 98.0 79 18 138/62 (87) 96 08/04/19 11:54 97.5 77 18 134/66 (88) 97 08/04/19 08:45 Room Air 08/04/19 08:35 131/83 08/04/19 08:35 83 131/83 08/04/19 08:30 98.9 83 18 131/83 (99) 94 08/04/19 04:00 98.2 86 20 130/68 (88) 94 08/04/19 00:00 98.6 79 18 134/70 (91) 94 08/03/19 21:00 Room Air 08/03/19 20:00 98.0 92 18 158/70 (99) 93 08/03/19 17:06 74 128/68 08/03/19 17:05 128/68 Intake and Output 08/03/19 08/04/19 19:00 07:00 Intake Total 1100 ml 50 ml Output Total 1200 ml 1600 ml Balance -100 ml -1550 ml Intake Oral 1000 ml IV Total 100 ml 50 ml Output Urine Total 1200 ml 1600 ml Laboratory Tests 08/04/19 07:05: Sodium Level 139, Potassium Level 4.2, Chloride Level 107, Carbon Dioxide Level 24, Anion Gap 8, Blood Urea Nitrogen 42H, Creatinine 2.3H, Estimat Glomerular Filtration Rate , Glucose Level 104, Calcium Level 9.1 Height (Feet): 5 Height (Inches): 5.00 Weight (Pounds): 173 General Appearance: no apparent distress, alert EENT: normal ENT inspection Neck: normal alignment Cardiovascular: normal rate Respiratory/Chest: lungs clear Abdomen: non tender Extremities: no edema 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
--- NOTE | 2019-08-04 18:02 | NUR ---
CASE MANAGEMENT: REVIEW 08/02/2019 SI: TOXIC METABOLIC ENCEPHALOPATHY . RHABDOMYOLYSIS . JERMAINE . DEHYDRATION . HTN 98.6 72 20 139/72 96% ON RA IS:IV NS @50ML/HR NORVASC PO BID HYDRALAZINE PO BID PROSCAR PO QD SEROQUEL PO QHS CATAPRES TD QWK FLOMAX PO BID SEROQUEL QHS \: 4E MED SURG DCP: SNF PLACEMENT PLAN: NEURO CHECKS PT/OT EVAL AND TREAT - SNF PLACEMENT BY HCP CONTROL BP CASE MANAGEMENT: REVIEW 08/03/2019 SI: TOXIC METABOLIC ENCEPHALOPATHY . RHABDOMYOLYSIS . JERMAINE . DEHYDRATION . HTN 98.4 71 19 138/78 100% ON RA IS:IV NS @50ML/HR NORVASC PO BID HYDRALAZINE PO BID PROSCAR PO QD SEROQUEL PO QHS CATAPRES TD QWK FLOMAX PO BID SEROQUEL QHS \: 4E MED SURG DCP: SNF PLACEMENT PLAN: NEURO CHECKS PT/OT EVAL AND TREAT - SNF PLACEMENT BY HCP CONTROL BP CASE MANAGEMENT: REVIEW 08/04/2019 SI: TOXIC METABOLIC ENCEPHALOPATHY . RHABDOMYOLYSIS . JERMAINE . DEHYDRATION . HTN 97.5 77 18 134/66 97% ON RA BUN 42 CREAT 2.3 IS:IV NS @50ML/HR NORVASC PO BID HYDRALAZINE PO BID PROSCAR PO QD SEROQUEL PO QHS CATAPRES TD QWK FLOMAX PO BID SEROQUEL QHS \: 4E MED SURG DCP: SNF PLACEMENT PLAN: NEURO CHECKS PT/OT EVAL AND TREAT - SNF PLACEMENT BY HCP CONTROL BP
--- NOTE | 2019-08-04 19:18 | NUR ---
HAND-OFF: Report given to Ms Alex RN patient resting comfortably, no sign of distress sarah salvador.
[2019-08-04 20:00] VITALS: BP 147/64
--- NOTE | 2019-08-04 21:37 | Consultation ---
Consult Note Consult Note NEUROLOGY CONSULTATION: HISTORY: Mr. Reji Au is a 79-year-old, right-handed, black gentleman, who has a relatively benign but nebulous past history. He was brought into the emergency room at [facility] on 07/21/2019 after he had apparently fallen down and was on the floor for 4 days. His neighbors apparently called the paramedics who brought him in. He himself has no recollection of what happened. Since he has been here he has been noted to have some gait problems and thus this consultation was requested. He himself denies any problems with his gait. He also tells me that he has had no problems with memory. He says that he is always been healthy though he has not seen a doctor for many years. PAST HISTORY: Nothing significant as per the patient. FAMILY HISTORY: Nothing significant. PERSONAL HISTORY: Home: Lives at home alone. He does not have any relatives in [place] but does have siblings in [facility]. 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 Habits: He denies use of alcohol tobacco or illicit drugs. MEDICATIONS PRIOR TO ADMISSION: None. PHYSICAL EXAMINATION: GENERAL: He is a well-developed, relatively well-nourished, Black gentleman, lying in bed in no acute distress. VITAL SIGNS: Pulse: 80/min Blood pressure: 138/62 mmHg. Respirations: 18/min. Temperature: 98 F. HEAD: Normocephalic and atraumatic. NECK: No neck rigidity was observed. EENT examination: Benign. NEUROLOGICAL EXAMINATION: Mental status examination: He was awake and alert. He was oriented to self, July and hospital only. He did not know the name of the hospital, date or year. He was able to recall 3/3 words immediately but could only remember 1/3 after 1 minute and 3 minutes even on the third trial. He was able to remember presidents Trump and Obama with hints but could not remember presidents prior to that. His mathematical skills were impaired. His visual-spatial function was also impaired. Frontal systems tasks: He was unable to perform Luria's hand sequences. Speech: He had no dysarthria. Language: He had an anomia for low-frequency words. Cranial nerve examination: II: The visual kang were intact on confrontation testing. III, IV & : The external ocular movements were full. The pupils were 3 mm in diameter and reactive sluggishly to light. V: He had normal facial sensations, and the temporales, masseters, and pterygoids functioned normally. VII: He had normal facial expressions and no facial asymmetry. VIII: He was able to hear and had no nystagmus. IX: The palate moved symmetrically on phonation. X: He had no hoarseness of voice. XI: The sternocleidomastoids and trapezii functioned well. XII: The tongue was in the midline without any fasciculations or atrophy. Motor system: The tone was normal in all 4 extremities. Examination of muscle mass revealed no focal wasting. Examination of power revealed G 5/5 power in all muscle groups tested. Sensory examination: He had intact sensations to pinprick and light touch. He had bilaterally graphesthesia. Reflexes: 2+ and bilaterally symmetrical at the biceps, triceps, brachioradialis and knees. 0 at both ankles. The plantar responses were flexor. Coordination: He performed well on lchgid-sk-cdva and ynhu-qb-nhnv testing. Stance: Was significantly apractic but he was made to stand up. Gait: Could not be tested as I was unfortunately unable to get anyone to help me. DIAGNOSTIC IMPRESSION: 1. Mr. Reji Au is a 79-year-old, right-handed, black gentleman, who has a relatively benign past history. He was brought to the hospital on 07/21/2019 after he had apparently fallen down and was on the floor of his apartment for 4 days. He himself has no recollection of what happened. Since he has been here he has been noted to have some gait problems. 2. On neurological examination, at this time, he is disoriented to the name of the hospital date and year. He has significant problems with recent and remote memory, visual-spatial function, higher cognitive function, and language. He also has significant bilateral frontal systems dysfunction. He has bilateral a graphesthesia. His strength is excellent in all 4 extremities but he is apractic when he is made to stand up. Unfortunately I could not walk him as I was unable to obtain any help. 3. Laboratory data revealed that he is anemic with a hemoglobin of 11.5 g. His latest BUN is 42 and latest creatinine is 2.3. When he came in his CK was 2257 and it has now normalized 241. 4. The patient's history and neurological examination are most consistent with significant cognitive dysfunction and in addition stance and possibly gait apraxia. He also exhibits significant frontal systems dysfunction. RECOMMENDATIONS: 1. Agree with management thus far. 2. An MRI scan of the brain will be ordered to evaluate the patient for his cognitive and motor dysfunction. 3. In addition to laboratory tests already done a B12 level, folate level, vitamin D level, RPR, and hemoglobin A1c will be ordered. 4. Continue physical and occupational therapy to mobilize patient. Thank you for entrusting me with the care of Mr. Au. I shall follow him with you. Beka Smith M.D., M.S.P.H. Neurologist & Clinical Neurophysiologist Beka Smith MD Aug 04, 2019 21:37
--- NOTE | 2019-08-05 00:01 | Progress Note ---
DATE: 08/04/2019 SUBJECTIVE: The patient is in bed, calm, watching TV, withdrawn, depressed, forgetful. MENTAL STATUS EXAMINATION: The patient is alert, oriented times self, place, and situation. Mood is depressed. Affect is constricted, congruent with mood. Thought process is concrete. Thought content, no suicidal or homicidal ideation. ASSESSMENT: 1. Dementia. 2. Major depressive disorder. PLAN: 1. We will continue current psychotropic medication. 2. Provide the patient with reality orientation and supportive therapy. Nury Mandel M.D. DR: NABILA JOB#: [id number] CC:
[2019-08-05 00:52] VITALS: BP 146/62
--- NOTE | 2019-08-05 03:24 | NUR ---
NURSE NOTES: Received patient in bed ,awake, alert to name and place. Walsh intact and draining yellow urine by gravity. No s/s distress noted. No complaints of pain. Bed in lowest position, call light within reach, bed alarm on. Will continue to monitor.
[2019-08-05 04:42] VITALS: BP 144/67
--- NOTE | 2019-08-05 07:16 | NUR ---
HAND-OFF: Report given to MORIS MILLER RN.
--- NOTE | 2019-08-05 07:20 | NUR ---
NURSE NOTES: Received patient in bed, awake, alert and oriented x2. Denies pain or discomfort @ this time. Bed is in lowest position and locked. Call light and personnel items within reach. Bed alarm is on.Will continue plan of care.
[2019-08-05 08:00] VITALS: BP 143/63
[2019-08-05] MEDS: Tamsulosin 0.4mg cap ORAL SCH ×2 (08:35→18:27)
[2019-08-05] MEDS: HydrALAZINE 50mg tab ORAL SCH ×2 (08:35→18:28)
[2019-08-05] MEDS: Bethanechol 25mg Tab ORAL SCH ×3 (08:35→18:27)
[2019-08-05] MEDS: Heparin 5000 units/ml inj SUBQ SCH ×2 (08:36→21:01)
[2019-08-05 12:00] VITALS: BP 137/59
--- NOTE | 2019-08-05 12:28 | Pulmonology Progress Note ---
Assessment/Plan Problems: (1) Rhabdomyolysis (2) JERMAINE (acute kidney injury) (3) Dehydration (4) Episode of generalized weakness (5) Weakness (6) Gait abnormality (7) Failure to thrive in adult (8) Hypertension, benign (9) Toxic metabolic encephalopathy (10) Bacteremia due to Staphylococcus Assessment/Plan Assessment/Plan 1. Dehydration - RESOLVED 2. Acute rhabdomyolysis - RESOLVED 3. Hyperproteinemia, possible myeloma 4. Lactic acidosis -RESOLVED 5. Hypertension - POORLY CONTROLLED 6. Delirium - IMPROVED 7. JERMAINE vs CKD, likely both 8. Obstructive uropathy 9. Generalized weakness D/W Dr. Bethea ---> FC x 1 week, continue Finasteride, Flomax and Bethanachol mIVF per renal Will need an outpatient eval Needs age appropriate malignancy screening and primary care as an outpatient BP control PT re-eval DVT Px: Hep SQ Neuro recs and W/U, F/U MRI and labs Dispo planning to SNF Subjective Allergies: Coded Allergies: No Known Allergies (Unverified , 07/21/19) Subjective AFVSS onn RA nishi PO Neuro eval underway No F/C/CP/SOB/N/V/D/C/abd pain/urinary complaints Objective Last 24 Hour Vital Signs Date Time Temp Pulse Resp B/P (MAP) Pulse Ox O2 Delivery O2 Flow Rate FiO2 08/05/19 12:00 98.1 75 20 137/59 (85) 95 08/05/19 09:00 Room Air 08/05/19 08:35 143/63 08/05/19 08:35 84 143/63 08/05/19 08:00 98.0 84 18 143/63 (89) 95 08/05/19 04:42 98.5 80 18 144/67 (92) 95 08/05/19 00:52 98.7 77 18 146/62 (90) 96 08/04/19 21:00 Room Air 08/04/19 20:00 98.9 93 18 147/64 (91) 95 08/04/19 17:15 138/62 08/04/19 17:15 79 138/62 08/04/19 16:14 98.0 79 18 138/62 (87) 96 Intake and Output 08/04/19 08/05/19 19:00 07:00 Intake Total 1450 ml 910 ml Output Total 1200 ml 1200 ml Balance 250 ml -290 ml Intake Oral 950 ml 360 ml IV Total 500 ml 550 ml Output Urine Total 1200 ml 1200 ml # Voids 1 General Appearance: WD/WN, no acute distress HEENT: normocephalic, atraumatic, anicteric, mucous membranes moist Respiratory/Chest: chest wall non-tender, lungs clear, normal breath sounds, no respiratory distress, no accessory muscle use Cardiovascular: normal peripheral pulses, normal rate, regular rhythm Abdomen: normal bowel sounds, soft, non tender, no organomegaly, non distended , no mass Extremities: no cyanosis, no clubbing, no edema Current Medications Medications (Trade) Dose Ordered Sig/Hanh Route PRN Reason Start Time Stop Time Status Last Admin Dose Admin Amlodipine Besylate (Norvasc) 10 mg BID ORAL 07/26/19 18:00 08/25/19 17:59 08/05/19 08:35 Bethanechol Chloride (Urecholine) 25 mg THREE TIMES A DAY ORAL 08/02/19 14:00 09/01/19 13:59 08/05/19 08:35 Bisacodyl (Dulcolax) 10 mg DAILYPRN PRN RECTAL Constipation 08/04/19 19:00 09/03/19 18:59 Clonidine HCl (Catapres TTS-3) 1 patch QWEEK TDERMAL 07/22/19 12:00 08/21/19 11:59 07/29/19 13:36 Finasteride (Proscar) 5 mg DAILY ORAL 07/28/19 09:00 08/27/19 08:59 08/05/19 08:35 Heparin Sodium (Porcine) (Heparin 5000 units/ml) 5,000 units EVERY 12 HOURS SUBQ 08/01/19 21:00 08/31/19 20:59 08/05/19 08:36 Hydralazine HCl (Apresoline) 100 mg BID ORAL 07/26/19 18:00 08/25/19 17:59 08/05/19 08:35 Quetiapine Fumarate (SEROqueL) 25 mg Q6H PRN ORAL For Anxiety 07/22/19 12:45 08/21/19 12:44 Quetiapine Fumarate (SEROqueL) 25 mg QHS ORAL 07/21/19 21:00 08/20/19 20:59 08/04/19 21:58 Sodium Chloride 1,000 ml @ 50 mls/hr Q20H IV 07/26/19 12:30 08/25/19 12:29 08/04/19 22:05 Tamsulosin HCl (Flomax) 0.4 mg BID ORAL 07/27/19 18:00 08/26/19 17:59 08/05/19 08:35 Shiraz Cervantes MD Aug 05, 2019 12:28
--- NOTE | 2019-08-05 13:29 | Nephrology Progress Note ---
Assessment/Plan Problem List: (1) Hypertension, benign (2) Toxic metabolic encephalopathy (3) Gait abnormality (4) Rhabdomyolysis (5) JERMAINE (acute kidney injury) (6) Dehydration (7) Episode of generalized weakness (8) Bacteremia due to Staphylococcus (9) CKD (chronic kidney disease) stage 3, GFR 30-59 ml/min (10) Urinary retention Plan f/u lab, , mobilize, try to get coop to po meds lab trend better until 1/3 rise in creat , ckd3, renal US, mobilize, dickson placed as 800 ml residual , would keep dickson for one week, flomax and finasteride started, voiding trial so far bladder residual 350 08/02 then voided check again later, add urecholine, dickson was replaced renal function stable Subjective ROS Limited/Unobtainable: Yes Objective Objective Last 24 Hour Vital Signs Date Time Temp Pulse Resp B/P (MAP) Pulse Ox O2 Delivery O2 Flow Rate FiO2 08/05/19 12:00 98.1 75 20 137/59 (85) 95 08/05/19 09:00 Room Air 08/05/19 08:35 143/63 08/05/19 08:35 84 143/63 08/05/19 08:00 98.0 84 18 143/63 (89) 95 08/05/19 04:42 98.5 80 18 144/67 (92) 95 08/05/19 00:52 98.7 77 18 146/62 (90) 96 08/04/19 21:00 Room Air 08/04/19 20:00 98.9 93 18 147/64 (91) 95 08/04/19 17:15 138/62 08/04/19 17:15 79 138/62 08/04/19 16:14 98.0 79 18 138/62 (87) 96 Intake and Output 08/04/19 08/05/19 19:00 07:00 Intake Total 1450 ml 910 ml Output Total 1200 ml 1200 ml Balance 250 ml -290 ml Intake Oral 950 ml 360 ml IV Total 500 ml 550 ml Output Urine Total 1200 ml 1200 ml # Voids 1 Height (Feet): 5 Height (Inches): 5.00 Weight (Pounds): 173 General Appearance: no apparent distress, alert, confused EENT: normal ENT inspection Neck: normal alignment Cardiovascular: normal rate, regular rhythm Respiratory/Chest: lungs clear Abdomen: non tender, soft Neurologic: employment 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
--- NOTE | 2019-08-05 13:55 | NUR ---
NURSE NOTES: patient is off the unit for MRI of brain in stable condition.RN spoke to Moo business technology architect. Moo business technology architect is aware of EEG test.
--- NOTE | 2019-08-05 15:16 | Diagnostic Imaging Report ---
Indication: Altered mental status, weakness, unsteady gait Technique: sagittal T1 fast spin echo, axial T1 FLAIR, axial T2 FLAIR, axial T2 FS PROPELLER, axial T2* GRE, axial diffusion weighted images. ADC and exponential ADC maps generated Comparison: none Findings: Multiple small foci of restricted diffusion are demonstrated scattered throughout the brain. The largest is adjacent to the posterior body of the left lateral ventricle, just above the atrium. 2 others are seen in adjacent to the right atrium and right occipital horn. Another is seen within the left basal ganglia. There are multiple punctate foci scattered throughout the hemispheric deep white matter, tay-white junctions, and cortex bilaterally. A single small focus of diffusion restriction is seen in the inferior left cerebellar hemisphere. Multiple old lacunar infarcts are seen within the bilateral deep white matter and bilateral basal ganglia, multiple in the bilateral cerebellar hemispheres, and one within the forest. No acute hemorrhage or edema. No mass effect nor midline shift. There is age-related enlargement of the ventricles and extra axial CSF spaces. There is extensive confluent periventricular deep white matter high T2 signal consistent with chronic microvascular ischemic change. The vascular flow voids are preserved. Visualized orbits are unremarkable. There is bilateral ethmoid sinus disease. There is a small amount of fluid within the right mastoids. Impression: Multiple small acute infarcts scattered throughout the cerebral hemispheres, basal ganglia, and left cerebellum. Presence of these in multiple vascular territories indicates emboli of cardiogenic origin Multiple old lacunar infarcts also demonstrated Extensive periventricular deep white matter chronic ischemic change Age-related volume loss Negative for acute intracranial bleed or mass effect Critical value findings phoned to Dr. Smith at the time of interpretation
--- NOTE | 2019-08-05 15:30 | NUR ---
NURSE NOTES: Patient came back from MRI dept. in stable condition and his IV is leaking, RN inserted a new IV on left forearm with G24 and secured with tape. No s/s of infiltration on IV removal site.
[2019-08-05 16:00] VITALS: BP 156/69
--- NOTE | 2019-08-05 16:03 | NUR ---
GEOSCIENCES ASSOCIATE PROFESSOR NOTE This SW was informed by floor RN that pt's visitors wanting to speak w/ SW. Pt presents as A&O 3x but tangential. PHUC met two visitors; Cary Bowden(landlord) Ro (' judicial assistant) in pt's room. Pt provided a verbal consent to speak to both Cary and Ro. Ms. Townsend confirmed that pt resides alone at [address], [place] [address]. Pt has been living in the building since 1992. Per Cary, pt is a but does not receive VA benefit. Cary contacted a VA pillowcase folder hoping she could assist pt to connect to VA services but the pillowcase folder was unable to find pt's 's record. Pt was unable to recall how much/what kind of income he is receiving. PT first stated that Regina Au who is around 45 y/o is his daughter. Then he stated Regina is his sister. PT was born in [facility], is , has ex- named Kathe Au, and has one daughter. Pt is agreeable to be placed at [facility] d/t his current medical condition. Ms. Bowden wants to be notified of pt's OR #[phone] Signed: 08/05/19 at 1612 by RUSSELL FRIEND <Co-Signature Required>
--- NOTE | 2019-08-05 18:21 | NUR ---
NURSE NOTES:WOUND CARE NOTES:Pt's skin assessment completed with Primary nurse in attendance. Pt noted to have Optifoam drsg to sacrum. Non-blanching erythema with loose dry, peeling skin noted to sacrum. Moisture Barrier applied and covered with Optifoam drsg. Additional moisture Barrier paste applied to surrounding areas of buttocks and both ischial tuberosities including scrotum. Non-blanching erythema without fluctuance noted to lateral L heel . Non-tender when palpated. R heel is soft but easily blanchable.Cavilon Skin Barrier applied to both heels. Each heel covered with Optifoam drsg. Both heels floated off mattress with pillow. Recommendations: Apply Moisture Barrier Paste to Sacrum. Cover with Optifoam drsg. Change every 3 days and prn. Apply Cavilon Skin BArrier to each heel. Cover each heel with Optifoam drsg. Change every 7 days and prn. Reposition at least every 2 hours or as tolerated. Off-load heels with pillow.
[2019-08-05 18:54] LABS: % IRON SATURATION 22 % (15-50); IRON 54 ug/dL (50-175); TOTAL IRON BINDING CAPACITY 245 ug/dL (250-450)
--- NOTE | 2019-08-05 19:20 | NUR ---
NURSE NOTES: Received patient lying on bed, awake and verbally responsive. no sob. no pain or discomfort. bed locked and in lowest position. reiterated to call or ask for assistance. bed locked and in lowest position. call light and light button within easy reach. will continue plan of care.
--- NOTE | 2019-08-05 19:30 | NUR ---
HAND-OFF: Report given to Rand and endorsed plan of care.
[2019-08-05 20:00] VITALS: BP 148/73
--- NOTE | 2019-08-05 22:26 | Neurology Progress Note ---
Interim History Interim History Interim History Mr. Reji Au is a 79-year-old, right-handed, black gentleman, who has a relatively benign past history. He was brought to the hospital on 07/21/2019 after he had apparently fallen down and was on the floor of his apartment for 4 days. He himself has no recollection of what happened. Since he has been here he has been noted to have some gait problems. He feels better today. He continues to have significant cognitive dysfunction. He denies any new problems. He specifically denies any weakness on one side or the other, numbness on one side or the other, problems with speech, problems with language, or problems with his vision. Review of Systems Neuro Review of Systems Benign. Objective Physical Exam Last Vital Signs Date Time Temp Pulse Resp B/P (MAP) Pulse Ox O2 Delivery O2 Flow Rate FiO2 08/05/19 18:28 148/66 08/05/19 18:27 86 08/05/19 16:00 98.6 20 98 08/05/19 09:00 Room Air Laboratory Tests Test 08/05/19 18:25 Reticulocyte Count 1.1 % (0.5-2.0) Iron Level 54 ug/dL (50-175) Total Iron Binding Capacity 245 ug/dL (250-450) L Percent Iron Saturation 22 % (15-50) Unsaturated Iron Binding 191 ug/dL (112-346) Neurologic Exam Objective PHYSICAL EXAMINATION: GENERAL: He is a well-developed, relatively well-nourished, Black gentleman, lying in bed in no acute distress. HEAD: Normocephalic and atraumatic. NECK: No neck rigidity was observed. EENT examination: Benign. NEUROLOGICAL EXAMINATION: Mental status examination: He was awake and alert. He was oriented to self, July and hospital only. He did not know the name of the hospital, date or year. He was able to recall 3/3 words immediately but could only remember 1/3 after 1 minute and 3 minutes. He was able to remember presidents Trump and Obama with hints but could not remember presidents prior to that. His mathematical skills were impaired. His visual-spatial function was also impaired. Frontal systems tasks: He was unable to perform Luria's hand sequences. Speech: He had no dysarthria. Language: He had an anomia for low-frequency words. Cranial nerve examination: II: The visual kang were intact on confrontation testing. III, IV & : The external ocular movements were full. The pupils were 3 mm in diameter and reactive sluggishly to light. V: He had normal facial sensations, and the temporales, masseters, and pterygoids functioned normally. VII: He had normal facial expressions and no facial asymmetry. VIII: He was able to hear and had no nystagmus. IX: The palate moved symmetrically on phonation. X: He had no hoarseness of voice. XI: The sternocleidomastoids and trapezii functioned well. XII: The tongue was in the midline without any fasciculations or atrophy. Motor system: The tone was normal in all 4 extremities. Examination of muscle mass revealed no focal wasting. Examination of power revealed G 5/5 power in all muscle groups tested. Sensory examination: He had intact sensations to pinprick and light touch. He had bilaterally graphesthesia. Reflexes: 2+ and bilaterally symmetrical at the biceps, triceps, brachioradialis and knees. 0 at both ankles. The plantar responses were flexor. Coordination: He performed well on [id number] and [id number]-ud-pimk testing. Stance: Deferred as he was getting his EEG. Gait: Deferred as he was getting his EEG. Impression/Recommendations Diagnostic Impression DIAGNOSTIC IMPRESSION: 1. Mr. Reji Au is a 79-year-old, right-handed, black gentleman, who has a relatively benign past history. He was brought to the hospital on 07/21/2019 after he had apparently fallen down and was on the floor of his apartment for 4 days. He himself has no recollection of what happened. Since he has been here he has been noted to have some gait problems. 2. He feels better today. He continues to have significant cognitive dysfunction. He denies any new problems. He specifically denies any weakness on one side or the other, numbness on one side or the other, problems with speech, problems with language, or problems with his vision. 3. On neurological examination, at this time, he is disoriented to the name of the hospital date and year. He has significant problems with recent and remote memory, visual-spatial function, higher cognitive function, and language. He also has significant bilateral frontal systems dysfunction. He has bilateral a graphesthesia. His strength is excellent in all 4 extremities but he is apractic. 4. Laboratory data revealed that he is anemic with a hemoglobin of 11.5 g. His latest BUN is 42 and latest creatinine is 2.3. When he came in his CK was 2257 and it has now normalized 241. He is folic acid deficient with a folic acid level of 7.5. 5. The MRI scan of the brain performed on 08/05/2019 revealed multiple acute infarcts in involving both cerebral hemispheres, basal ganglia, and the left cerebellum. In addition multiple old small infarcts scattered in the brain were also seen. 6. The patient's history and neurological examination are most consistent with significant cognitive dysfunction and in addition stance and possibly gait apraxia. He also exhibits significant frontal systems dysfunction. This is related to shower of emboli to the brain acutely and in addition remote possibly embolic phenomena. Recommendations RECOMMENDATIONS: 1. Continue present management. 2. Transesophageal echocardiogram with bubble study should be performed to evaluate the patient for cardiogenic source of emboli. 3. The patient should have cardiac monitoring performed to exclude atrial fibrillation as a reason for a cardiogenic source of emboli. 4. Continue physical and occupational therapy to mobilize patient. 5. Folic acid 1 mg daily for folate deficiency. Beka Smith M.D., M.S.P.H. Neurologist & Clinical Neurophysiologist Beka Smith MD Aug 05, 2019 22:26
[2019-08-06] VITALS (7 sets, daily range): BP systolic 124–151; BP diastolic 49–79
--- NOTE | 2019-08-06 02:30 | Electroencephalogram ---
DATE OF PROCEDURE: 08/05/2019 REQUESTING PHYSICIAN: Shiraz Cervantes M.D. READING PHYSICIAN: Beka Smith M.D. PROCEDURE PERFORMED: Electroencephalogram. HISTORY: This EEG was performed on a 79-year-old gentleman who was found down on the floor of his house with significant alteration in his mental state. The purpose of this EEG was to evaluate the patient for the degree and type of cerebral dysfunction. TECHNICAL NOTE: This EEG was performed on a [employer] with electrodes placed on the scalp according to the International 10-20 system. Eikwi-py-dlwvm and rmunw-xd-hew montages were used. The EEG was technically satisfactory and was performed in the awake and drowsy states. OBSERVATIONS: In the best awake state, the background activity consisted of 8-8.5 Hz posteriorly predominant, well-developed, alpha waveforms, which attenuated on eye opening. Drowsiness was characterized by dissolution of the alpha rhythm and the appearance of slow frequencies in the 6-7 Hz theta range. No focal abnormalities or epileptiform discharges were seen. IMPRESSION: Normal awake and drowsy EEG. Beka Smith M.D., M.S.P.H. Clinical Neurophysiologist DR: JACKELYN JOB#: [id number] MTDD
--- NOTE | 2019-08-06 07:09 | NUR ---
HAND-OFF: Report given to FEDE. endorsed that we have an order for transfer to tele, still waiting for the bed placement.
--- NOTE | 2019-08-06 07:10 | NUR ---
NURSE NOTES: Report received from Rand MCGEE. Patient awake and alert x 2. Patient sitting in semi fowlers position in bed. 24 sunshine IV noted in left forearm with IV fluids running per MD orders. Indwelling dickson noted, patent, and draining clear yellow urine. Informed patient to inform nurse if needed to move bowels so nurse could obtain stool sample. Bed locked, alarmed, and in lowest position. Call light within reach. Awaiting for tele bed, and will transfer patient to tele unit. Until then, will continue to follow plan of care.
--- NOTE | 2019-08-06 08:30 | NUR ---
NURSE NOTES: Patient transferred to tele unit room 218-1. Report given to tele nurse. Belongings list reviewed. All belongings transferred with patient. IV pump with IV fluids per MD orders transferred with patient. Chart given to nurse. Patient alert and oriented x 2 when leaving care of Jovanny MCGEE. Jovanny MCGEE brought stool sample to lab. Care for this patient now ends at this time for Jovanny MCGEE.
--- NOTE | 2019-08-06 08:50 | NUR ---
NURSE NOTES: Report received from ARELY Petty. Patient came in from 4E. In RA. Denies pain or SOB. AOx2. Belongings checked, signed and filed. L FA 24g, site swollen, IV removed. Pt. had a BM, cleaned, and made comfortable. matlab developer applied. FC patent, and draining clear yellow urine. Bed on low position, side rails upx2, brakes engaged, alarm on. Call light within easy reach.
[2019-08-06] MEDS: Heparin 5000 units/ml inj SUBQ SCH ×3 (09:00→21:19)
[2019-08-06] MEDS: HydrALAZINE 50mg tab ORAL SCH ×3 (09:00→18:22)
[2019-08-06] MEDS: Tamsulosin 0.4mg cap ORAL SCH ×2 (09:46→18:22)
[2019-08-06] MEDS: Bethanechol 25mg Tab ORAL SCH ×3 (09:47→18:22)
--- NOTE | 2019-08-06 11:57 | Pulmonology Progress Note ---
Assessment/Plan Problems: (1) Rhabdomyolysis (2) JERMAINE (acute kidney injury) (3) Dehydration (4) Episode of generalized weakness (5) Weakness (6) Gait abnormality (7) Failure to thrive in adult (8) Hypertension, benign (9) Toxic metabolic encephalopathy (10) Bacteremia due to Staphylococcus (11) Positive RPR test (12) CVA (cerebral vascular accident) Assessment/Plan Assessment/Plan 1. Acute and chronic CVA, likely embolic 2. AMS, 2/2 above 3. Positive RPR 4. Dehydration/rhabdomyolysis/lactic acidosis - RESOLVED 5. Hyperproteinemia, possible myeloma 6. Hypertension - POORLY CONTROLLED 7. JERMAINE vs CKD, likely both 8. Obstructive uropathy 9. Generalized weakness PLAN: Transfer to tele, evaluate for AF TTE/LESA ordered Cardiology eval D/W neuro, will hold off on AC until etiology of CVA determined F/U neuro recs and w/u ID eval given + RPR F/U renal recs and w/u ---> FC x 1 week, continue Finasteride, Flomax and Bethanachol mIVF per renal Will need an outpatient eval Needs age appropriate malignancy screening and primary care as an outpatient BP control PT/OT DVT Px: Hep SQ Dispo planning to SNF Subjective Allergies: Coded Allergies: No Known Allergies (Unverified , 07/21/19) Subjective MRI brain with acute and chronic embolic CVA RPR + Transferred to [facility] No change in MS No [id number] Objective Last 24 Hour Vital Signs Date Time Temp Pulse Resp B/P (MAP) Pulse Ox O2 Delivery O2 Flow Rate FiO2 08/06/19 10:00 76 08/06/19 09:00 124/49 08/06/19 09:00 81 124/49 08/06/19 08:50 97.2 81 19 124/49 (74) 94 08/06/19 08:00 97.1 86 19 150/68 (95) 96 08/06/19 04:00 98.5 75 19 131/79 (96) 98 08/06/19 00:00 98.2 82 17 139/70 (93) 96 08/05/19 21:00 Room Air 08/05/19 20:00 98.5 84 19 148/73 (98) 95 08/05/19 18:28 148/66 08/05/19 18:27 86 148/66 08/05/19 16:00 98.6 87 20 156/69 (98) 98 08/05/19 14:59 152/62 08/05/19 12:00 98.1 75 20 137/59 (85) 95 Intake and Output 08/05/19 08/06/19 19:00 07:00 Intake Total 790 ml 650 ml Output Total 650 ml 1250 ml Balance 140 ml -600 ml Intake Oral 240 ml 650 ml IV Total 550 ml Output Urine Total 650 ml 1250 ml General Appearance: no acute distress, cachetic HEENT: normocephalic, atraumatic, anicteric, mucous membranes moist Respiratory/Chest: chest wall non-tender, lungs clear, normal breath sounds, no respiratory distress, no accessory muscle use Cardiovascular: normal peripheral pulses, normal rate, regular rhythm Abdomen: normal bowel sounds, soft, non tender, no organomegaly, non distended , no mass Extremities: no cyanosis, no clubbing, no edema Laboratory Tests 08/05/19 18:25: Reticulocyte Count 1.1, Iron Level 54, Total Iron Binding Capacity 245L, Percent Iron Saturation 22, Unsaturated Iron Binding 191 08/05/19 18:55: Troponin I 0.015 Current Medications Medications (Trade) Dose Ordered Sig/Hanh Route PRN Reason Start Time Stop Time Status Last Admin Dose Admin Amlodipine Besylate (Norvasc) 10 mg BID ORAL 07/26/19 18:00 08/25/19 17:59 08/05/19 18:27 Bethanechol Chloride (Urecholine) 25 mg THREE TIMES A DAY ORAL 08/02/19 14:00 09/01/19 13:59 08/06/19 09:47 Bisacodyl (Dulcolax) 10 mg DAILYPRN PRN RECTAL Constipation 08/04/19 19:00 09/03/19 18:59 08/06/19 06:40 Clonidine HCl (Catapres TTS-3) 1 patch QWEEK TDERMAL 07/22/19 12:00 08/21/19 11:59 08/05/19 14:59 Finasteride (Proscar) 5 mg DAILY ORAL 07/28/19 09:00 08/27/19 08:59 08/06/19 09:47 Folic Acid (Folate) 1 mg DAILY ORAL 08/06/19 09:00 09/05/19 08:59 08/06/19 09:47 Heparin Sodium (Porcine) (Heparin 5000 units/ml) 5,000 units EVERY 12 HOURS SUBQ 08/01/19 21:00 08/31/19 20:59 08/05/19 21:01 Hydralazine HCl (Apresoline) 100 mg BID ORAL 07/26/19 18:00 08/25/19 17:59 08/05/19 18:28 Quetiapine Fumarate (SEROqueL) 25 mg Q6H PRN ORAL For Anxiety 07/22/19 12:45 08/21/19 12:44 Quetiapine Fumarate (SEROqueL) 25 mg QHS ORAL 07/21/19 21:00 08/20/19 20:59 08/05/19 21:01 Sodium Chloride 1,000 ml @ 50 mls/hr Q20H IV 07/26/19 12:30 08/25/19 12:29 08/05/19 23:30 Tamsulosin HCl (Flomax) 0.4 mg BID ORAL 07/27/19 18:00 08/26/19 17:59 08/06/19 09:46 Shiraz Cervantes MD Aug 06, 2019 11:57
--- NOTE | 2019-08-06 14:45 | NUR ---
PT notes: Patient was transfered to tele; per RN, ok to continue with physical therapy treatment.
--- NOTE | 2019-08-06 16:44 | NUR ---
CASE MANAGEMENT: REVIEW 08/05/2019 SI: TOXIC METABOLIC ENCEPHALOPATHY . RHABDOMYOLYSIS . JERMAINE . DEHYDRATION . HTN 98.0 84 18 143/63 95% ON RA TIBC 245 IS:IV NS @50ML/HR URECHOLINE PO TID NORVASC PO BID HYDRALAZINE PO BID PROSCAR PO QD SEROQUEL PO QHS CATAPRES TD QWK FLOMAX PO BID SEROQUEL QHS \: 4E MED SURG DCP: SNF PLACEMENT PLAN: NEURO CHECKS PT/OT EVAL AND TREAT - SNF PLACEMENT BY HCP CONTROL BP CASE MANAGEMENT: REVIEW 08/06/2019 SI: TOXIC METABOLIC ENCEPHALOPATHY . RHABDOMYOLYSIS . JERMAINE . DEHYDRATION . HTN 98.2 83 18 151/78 97% ON RA IS:IV NS @50ML/HR NORVASC PO BID HYDRALAZINE PO BID PROSCAR PO QD SEROQUEL PO QHS CATAPRES TD QWK FLOMAX PO BID SEROQUEL QHS \: TRANSFER TO [facility] FOR EVAL AF DCP: SNF PLACEMENT PLAN: TTE/LESA ORDERED OB STOOL-PENDING FTA-ABS -PENDING
--- NOTE | 2019-08-06 17:45 | Progress Note ---
DATE: 08/06/2019 SUBJECTIVE: The patient is now in step-down unit. He is weak, more confused than previous encounter. Unable to be engaged and answer the questions. MENTAL STATUS EXAMINATION: Alert, oriented times self and place. Mood is anxious. Affect is flat. Thought process, there is a paucity of thought content. Thought content, no suicidal or homicidal ideation. Cognition is impaired. Insight and judgment non-existent. ASSESSMENT AND PLAN: 1. Continue the Seroquel. 2. The patient lacks capacity to make decision. 3. Continue to follow, readjust the medications. Nury Mandel M.D. DR: NABILA JOB#: [id number] CC:
--- NOTE | 2019-08-06 17:55 | Nephrology Progress Note ---
Assessment/Plan Problem List: (1) Hypertension, benign (2) Toxic metabolic encephalopathy (3) Gait abnormality (4) Rhabdomyolysis (5) JERMAINE (acute kidney injury) (6) Dehydration (7) Episode of generalized weakness (8) Bacteremia due to Staphylococcus (9) CKD (chronic kidney disease) stage 3, GFR 30-59 ml/min (10) Urinary retention Plan f/u lab, , mobilize, try to get coop to po meds lab trend better until 1/3 rise in creat , ckd3, renal US, mobilize, dickson placed as 800 ml residual , would keep dickson for one week, flomax and finasteride started, voiding trial so far bladder residual 350 08/02 then voided check again later, add urecholine, dickson was replaced renal function stable--recheck lab as prior afib , now nsr Subjective Constitutional: Reports: weakness HEENT: Reports: no symptoms Genitourinary: Reports: incontinence Neurologic/Psychiatric: Reports: pre-existing deficit Objective Objective Last 24 Hour Vital Signs Date Time Temp Pulse Resp B/P (MAP) Pulse Ox O2 Delivery O2 Flow Rate FiO2 08/06/19 16:00 68 08/06/19 15:41 80 08/06/19 12:00 98.2 83 18 151/78 (102) 97 08/06/19 12:00 80 08/06/19 10:00 76 08/06/19 09:00 Room Air 08/06/19 09:00 124/49 08/06/19 09:00 81 124/49 08/06/19 08:50 97.2 81 19 124/49 (74) 94 08/06/19 08:00 97.1 86 19 150/68 (95) 96 08/06/19 04:00 98.5 75 19 131/79 (96) 98 08/06/19 00:00 98.2 82 17 139/70 (93) 96 08/05/19 21:00 Room Air 08/05/19 20:00 98.5 84 19 148/73 (98) 95 08/05/19 18:28 148/66 08/05/19 18:27 86 148/66 Intake and Output 08/05/19 08/06/19 19:00 07:00 Intake Total 790 ml 650 ml Output Total 650 ml 1250 ml Balance 140 ml -600 ml Intake Oral 240 ml 650 ml IV Total 550 ml Output Urine Total 650 ml 1250 ml Laboratory Tests 08/05/19 18:25: Reticulocyte Count 1.1, Iron Level 54, Total Iron Binding Capacity 245L, Percent Iron Saturation 22, Unsaturated Iron Binding 191 08/05/19 18:55: Troponin I 0.015 08/06/19 08:00: Treponema pallidum Ab (FTA-ABS) [Pending] Height (Feet): 5 Height (Inches): 5.00 Weight (Pounds): 176 General Appearance: no apparent distress, alert EENT: normal ENT inspection Neck: non-tender, normal alignment Cardiovascular: normal rate, regular rhythm Respiratory/Chest: lungs clear Extremities: no edema Neurologic: rapid outsole stitcher II-XII grossly normal, motor weakness Arthur Bethea MD Aug 06, 2019 17:55
--- NOTE | 2019-08-06 18:00 | NUR ---
NURSE NOTES: Dr. Bethea is made aware of Patients lab results. No new orders at this time.
--- NOTE | 2019-08-06 18:03 | Cardiac Electrophysiology PN ---
Subjective Subjective [id number] Objective Last 24 Hour Vital Signs Date Time Temp Pulse Resp B/P (MAP) Pulse Ox O2 Delivery O2 Flow Rate FiO2 08/06/19 16:00 68 08/06/19 15:41 80 08/06/19 12:00 98.2 83 18 151/78 (102) 97 08/06/19 12:00 80 08/06/19 10:00 76 08/06/19 09:00 Room Air 08/06/19 09:00 124/49 08/06/19 09:00 81 124/49 08/06/19 08:50 97.2 81 19 124/49 (74) 94 08/06/19 08:00 97.1 86 19 150/68 (95) 96 08/06/19 04:00 98.5 75 19 131/79 (96) 98 08/06/19 00:00 98.2 82 17 139/70 (93) 96 08/05/19 21:00 Room Air 08/05/19 20:00 98.5 84 19 148/73 (98) 95 08/05/19 18:28 148/66 08/05/19 18:27 86 148/66 Intake and Output 08/05/19 08/06/19 19:00 07:00 Intake Total 790 ml 650 ml Output Total 650 ml 1250 ml Balance 140 ml -600 ml Intake Oral 240 ml 650 ml IV Total 550 ml Output Urine Total 650 ml 1250 ml Laboratory Tests Test 08/05/19 18:25 08/05/19 18:55 08/06/19 08:00 Reticulocyte Count 1.1 % (0.5-2.0) Iron Level 54 ug/dL (50-175) Total Iron Binding Capacity 245 ug/dL (250-450) L Percent Iron Saturation 22 % (15-50) Unsaturated Iron Binding 191 ug/dL (112-346) Troponin I 0.015 ng/mL (0.000-0.056) Treponema pallidum Ab (FTA-ABS) Pending Lance Nichols MD Aug 06, 2019 18:03
--- NOTE | 2019-08-06 19:05 | NUR ---
NURSE NOTES: Dr. Bethea made aware of RPR Reactive H and RPR 1:1 H. No new orders at this time.
--- NOTE | 2019-08-06 19:25 | NUR ---
NURSE NOTES: Got report from Livia MCGEE. Pt in stable condition. Denies any pain. No s/s of distress or discomfort noted. Pt resting in bed comfortably. Bed in low and locked position, call light within reach, bedside table within reach. Continue to monitor.
--- NOTE | 2019-08-06 19:25 | NUR ---
HAND-OFF: Report given to ARELY Ramires. Pt sleeping comfortably. Plan of care endorsed.
--- NOTE | 2019-08-06 19:44 | Neurology Progress Note ---
Interim History Interim History Interim History Mr. Reji Au is a 79-year-old, right-handed, black gentleman, who has a relatively benign past history. He was brought to the hospital on 07/21/2019 after he had apparently fallen down and was on the floor of his apartment for 4 days. He himself has no recollection of what happened. Since he has been here he has been noted to have some gait problems. He feels better today. He was in bed enjoying his dinner when I went to see him. He continues to have significant cognitive dysfunction. He denies any new problems. He specifically denies any weakness on one side or the other, numbness on one side or the other, problems with speech, problems with language, or problems with his vision. When asked if he has had syphilis in the past he said - NO. Review of Systems Neuro Review of Systems Benign. Objective Physical Exam Last Vital Signs Date Time Temp Pulse Resp B/P (MAP) Pulse Ox O2 Delivery O2 Flow Rate FiO2 08/06/19 18:22 146/79 08/06/19 18:22 68 08/06/19 16:00 98.1 18 97 08/06/19 09:00 Room Air Laboratory Tests Test 08/06/19 08:00 Treponema pallidum Ab (FTA-ABS) Pending Neurologic Exam Objective PHYSICAL EXAMINATION: GENERAL: He is a well-developed, relatively well-nourished, Black gentleman, lying in bed in no acute distress. HEAD: Normocephalic and atraumatic. NECK: No neck rigidity was observed. EENT examination: Benign. NEUROLOGICAL EXAMINATION: Mental status examination: He was awake and alert. He was oriented to self, July and hospital only. He did not know the name of the hospital, date or year. He was able to recall 3/3 words immediately but could only remember 1/3 after 1 minute and 3 minutes. He was able to remember president Trump only. His mathematical skills were impaired. His visual-spatial function was also impaired. Frontal systems tasks: He was unable to perform Luria's hand sequences. Speech: He had no dysarthria. Language: He had an anomia for low-frequency words. Cranial nerve examination: II: The visual kang were intact on confrontation testing. III, IV & : The external ocular movements were full. The pupils were 3 mm in diameter and reactive sluggishly to light. V: He had normal facial sensations, and the temporales, masseters, and pterygoids functioned normally. VII: He had normal facial expressions and no facial asymmetry. VIII: He was able to hear and had no nystagmus. IX: The palate moved symmetrically on phonation. X: He had no hoarseness of voice. XI: The sternocleidomastoids and trapezii functioned well. XII: The tongue was in the midline without any fasciculations or atrophy. Motor system: The tone was normal in all 4 extremities. Examination of muscle mass revealed no focal wasting. Examination of power revealed G 5/5 power in all muscle groups tested. Sensory examination: He had intact sensations to pinprick and light touch. He had bilaterally graphesthesia. Reflexes: 2+ and bilaterally symmetrical at the biceps, triceps, brachioradialis and knees. 0 at both ankles. The plantar responses were flexor. Coordination: He performed well on [id number]-[id number] and ysqe-ha-heso testing. Stance: Deferred. Gait: Deferred. Impression/Recommendations Diagnostic Impression DIAGNOSTIC IMPRESSION: 1. Mr. Reji Au is a 79-year-old, right-handed, black gentleman, who has a relatively benign past history. He was brought to the hospital on 07/21/2019 after he had apparently fallen down and was on the floor of his apartment for 4 days. He himself has no recollection of what happened. Since he has been here he has been noted to have some gait problems. 2. He feels better today. He was in bed enjoying his dinner when I went to see him. He continues to have significant cognitive dysfunction. He denies any new problems. When asked if he has had syphilis in the past he said - NO. 3. On neurological examination, at this time, he is disoriented to the name of the hospital date and year. He has significant problems with recent and remote memory, visuospatial function, higher cognitive function, and language. He also has significant bilateral frontal systems dysfunction. He has bilateral agraphesthesia. His strength is excellent in all 4 extremities but he is apractic. 4. Laboratory data revealed that he is anemic with a hemoglobin of 11.5 g. His latest BUN is 42 and latest creatinine is 2.3. When he came in his CK was 2257 and it has now normalized 241. He is folic acid deficient with a folic acid level of 7.5. His RPR is positive in a low titre of 1:1. The FTA-ABS is pending. 5. The MRI scan of the brain performed on 08/05/2019 revealed multiple acute infarcts in involving both cerebral hemispheres, basal ganglia, and the left cerebellum. In addition multiple old small infarcts scattered in the brain were also seen. 6. Thus far cardiac monitoring has revealed no arrhythmia. 7. The patient's history and neurological examination are most consistent with significant cognitive dysfunction and in addition stance and possibly gait apraxia. He also exhibits significant frontal systems dysfunction. This is related to shower of emboli to the brain acutely and in addition remote possibly embolic phenomena to the brain. Recommendations RECOMMENDATIONS: 1. Continue present management. 2. Transesophageal echocardiogram with bubble study should be performed to evaluate the patient for cardiogenic source of emboli. 3. Continue cardiac monitoring to exclude atrial fibrillation as a reason for a cardiogenic source of emboli. 4. Continue physical and occupational therapy to mobilize patient. 5. Folic acid 1 mg daily for folate deficiency. 6. Observe closely. Beka mSith M.D., M.S.P.H. Neurologist & Clinical Neurophysiologist Beka Smith MD Aug 06, 2019 19:44
--- NOTE | 2019-08-06 20:57 | Infectious Diseases Prog Note ---
Assessment/Plan Problems: (1) Positive RPR test Assessment & Plan: with low titer possible previous infection which was treated VS false positive , await FTA-ABS test to confirm , no indication to treat at this point . will screen him for HIV (2) CVA (cerebral vascular accident) Assessment & Plan: with multiple vascular emboli, rule out cardiogenic source thrombotic VS Infectious VS [place] related vegetations. will order blood culture x 2 , JOHN, RF and ESR (3) CKD (chronic kidney disease) stage 3, GFR 30-59 ml/min Assessment & Plan: avoid nephrotoxics, close monitoring of renal function, follow up with nephrology (4) Failure to thrive in adult Assessment & Plan: etiology? dementia possibly, will screen for HIV Subjective Allergies: Coded Allergies: No Known Allergies (Unverified , 07/21/19) Objective Vital Signs Last 24 Hour Vital Signs Date Time Temp Pulse Resp B/P (MAP) Pulse Ox O2 Delivery O2 Flow Rate FiO2 08/06/19 18:22 146/79 08/06/19 18:22 68 146/79 08/06/19 16:00 98.1 76 18 146/79 (101) 97 08/06/19 16:00 68 08/06/19 15:41 80 08/06/19 12:00 98.2 83 18 151/78 (102) 97 08/06/19 12:00 80 08/06/19 10:00 76 08/06/19 09:00 Room Air 08/06/19 09:00 124/49 08/06/19 09:00 81 124/49 08/06/19 08:50 97.2 81 19 124/49 (74) 94 08/06/19 08:00 97.1 86 19 150/68 (95) 96 08/06/19 04:00 98.5 75 19 131/79 (96) 98 08/06/19 00:00 98.2 82 17 139/70 (93) 96 08/05/19 21:00 Room Air Height (Feet): 5 Height (Inches): 5.00 Weight (Pounds): 176 Laboratory Tests Test 08/06/19 08:00 Treponema pallidum Ab (FTA-ABS) Pending Current Medications Medications (Trade) Dose Ordered Sig/Hanh Route PRN Reason Start Time Stop Time Status Last Admin Dose Admin Amlodipine Besylate (Norvasc) 10 mg BID ORAL 07/26/19 18:00 08/25/19 17:59 08/06/19 18:22 Bethanechol Chloride (Urecholine) 25 mg THREE TIMES A DAY ORAL 08/02/19 14:00 09/01/19 13:59 08/06/19 18:22 Bisacodyl (Dulcolax) 10 mg DAILYPRN PRN RECTAL Constipation 08/04/19 19:00 09/03/19 18:59 08/06/19 06:40 Clonidine HCl (Catapres TTS-3) 1 patch QWEEK TDERMAL 07/22/19 12:00 08/21/19 11:59 08/05/19 14:59 Clonidine HCl (Catapres Tab) 0.1 mg Q4H PRN ORAL sbp>170 08/06/19 18:15 09/05/19 18:14 Finasteride (Proscar) 5 mg DAILY ORAL 07/28/19 09:00 08/27/19 08:59 08/06/19 09:47 Folic Acid (Folate) 1 mg DAILY ORAL 08/06/19 09:00 09/05/19 08:59 08/06/19 09:47 Heparin Sodium (Porcine) (Heparin 5000 units/ml) 5,000 units EVERY 12 HOURS SUBQ 08/01/19 21:00 08/31/19 20:59 08/05/19 21:01 Hydralazine HCl (Apresoline) 100 mg BID ORAL 07/26/19 18:00 08/25/19 17:59 08/06/19 18:22 Quetiapine Fumarate (SEROqueL) 25 mg Q6H PRN ORAL For Anxiety 07/22/19 12:45 08/21/19 12:44 Quetiapine Fumarate (SEROqueL) 25 mg QHS ORAL 07/21/19 21:00 08/20/19 20:59 08/05/19 21:01 Sodium Chloride 1,000 ml @ 50 mls/hr Q20H IV 07/26/19 12:30 08/25/19 12:29 08/05/19 23:30 Tamsulosin HCl (Flomax) 0.4 mg BID ORAL 07/27/19 18:00 08/26/19 17:59 08/06/19 18:22 Anastasia Lion M.D. Aug 06, 2019 20:57
--- NOTE | 2019-08-06 22:30 | Consultation ---
DATE OF CONSULTATION: 08/06/2019 CARDIOLOGY CONSULTATION CONSULTING PHYSICIAN: Lance Nichols M.D. REFERRING PHYSICIAN: Shiraz Cervantes M.D. REASON FOR CONSULTATION: Management of hypertension, rule out cardioembolic source of stroke. HISTORY OF PRESENT ILLNESS: The patient is a 79-year-old gentleman with no known past medical history, who essentially has not been to doctor since 40 years ago was brought to the emergency room by paramedics. The neighbors called 911. The patient apparently had been lying on the floor and could not get up for 4 days and could not call anyone. The patient was admitted with acute rhabdomyolysis, dehydration, and lactic acidosis. 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 Cardiology consultation was requested for further evaluation. The patient was transferred to telemetry. REVIEW OF SYSTEMS: Review of systems was negative other than what was mentioned in the history of present illness. PAST MEDICAL HISTORY: As mentioned above. FAMILY HISTORY: Noncontributory. SOCIAL HISTORY: He lives at home. Does not smoke or drink alcohol. PHYSICAL EXAMINATION: VITAL SIGNS: Blood pressure of 151/78, pulse 83, respirations 18, and temperature 98.2. HEAD AND NECK: No JVD. LUNGS: Clear. CARDIOVASCULAR: Regular S1 and S2 with no gallop or murmur. ABDOMEN: Soft and nontender. EXTREMITIES: No pitting edema. LABORATORY AND DIAGNOSTIC DATA: His labs show white count 5.1, hemoglobin 11.5, hematocrit of 35, and platelet count is 225. Sodium 139, potassium 4.2, BUN of 42, creatinine 2.3, and glucose of 104. Troponin is negative. His INR is 1. His MRI of the brain showed multiple small acute infarcts scattered throughout the cerebral hemisphere, basal ganglia, left cerebellum suggestive of emboli of cardiac origin. ASSESSMENT AND PLAN: 1. multiple emboli in cerebral hemisphere, basal ganglia, and left cerebellum. Echocardiogram as well as transesophageal echocardiogram has been ordered. Hold off on anticoagulation at this time in view of acute stroke to prevent hemorrhagic conversion as the patient is cleared from Neurology perspective. 2. Hypertension. Continue Norvasc 5 mg b.i.d., hydralazine 100 mg b.i.d. as well as clonidine patch weekly. Add p.r.n. clonidine to his medical regimen. 3. Benign prostatic hypertrophy on Flomax and Proscar. 4. Dementia, on Seroquel per Dr. Mandel. 5. Acute rhabdomyolysis. 6. Staph bacteremia. 7. Stage 3 chronic kidney disease. Thank you very much for allowing me to participate in the care of this patient. Please do not hesitate to contact me for any questions regarding my evaluation. Sincerely, Lance Nichols M.D. DR: Laureen JOB#: [id number] CC:
[2019-08-07] VITALS: BP 152/67
[2019-08-07 04:00] VITALS: BP 131/67
--- NOTE | 2019-08-07 07:00 | NUR ---
NURSE NOTES: Notified Dr. Cervantes about RPR Reactive H and RPR 1:1 H . Continue to monitor.
--- NOTE | 2019-08-07 07:30 | NUR ---
HAND-OFF: Report given to Sameer MCGEE.
[2019-08-07 07:34] LABS: ANION GAP 10 mmol/L (5-15); BLOOD UREA NITROGEN 52 mg/dL (7-18); CALCIUM 8.8 MG/DL (8.5-10.1); CARBON DIOXIDE 23 MMOL/L (21-32); CHLORIDE 107 MMOL/L (98-107); CHOLESTEROL 197 MG/DL (< 200); CREATININE 2.4 MG/DL (0.55-1.30); HDL CHOLESTEROL 41 MG/DL (40-60); PHOSPHORUS 4.2 MG/DL (2.5-4.9); POTASSIUM 4.5 MMOL/L (3.5-5.1); SODIUM 140 MMOL/L (136-145); TRIGLYCERIDES 61 MG/DL (30-150)
[2019-08-07 08:00] VITALS: BP 140/73
[2019-08-07] MEDS: Tamsulosin 0.4mg cap ORAL SCH ×2 (08:38→17:41)
[2019-08-07] MEDS: Bethanechol 25mg Tab ORAL SCH ×3 (08:38→17:40)
[2019-08-07] MEDS: HydrALAZINE 50mg tab ORAL SCH ×2 (08:39→17:41)
[2019-08-07] MEDS: Heparin 5000 units/ml inj SUBQ SCH ×2 (08:40→21:00)
[2019-08-07 12:00] VITALS: BP 137/64
--- NOTE | 2019-08-07 13:11 | NUR ---
CASE MANAGEMENT:REVIEW 08/07/19 SI: ACUTE RHABDOMYOLYSIS STAPH BACTEREMIA. MULTIPLE SMALL ACUTE INFARCTS 98.1 66 18 140/73 98% ON RA BUN+52 CR+2.4 IS: FOLATE PO QD URECHOLINE PO TID HEPARIN SQ Q12 PROSCAR PO QD FLOMAX PO BID NORVASC PO BID HYDRALAZINE PO BID IVF@50/HR : TELEMETRY STATUS PLAN: PATIENT HAD A ACUTE STROKE WHICH MAKES HIM A CANDIDATE FOR REHAB SO HE CAN RETURN TO PRIOR LEVEL OF FUNCTIONING. EITHER ACUTE REHAB UNIT OR JAIL FOR REHAB PATIENT'S [facility] LOOKS OUT FOR HIM [facility] NUNN FRANK T: [phone]
--- NOTE | 2019-08-07 13:12 | NUR ---
*-* INSURANCE *-* ALL AVAILABLE CLINICALS HAVE BEEN FAXED TO: [facility] OPAL:[facility] P: [phone] F: [phone]
--- NOTE | 2019-08-07 14:09 | Infectious Diseases Prog Note ---
Assessment/Plan Problems: (1) Positive RPR test Assessment & Plan: with low titer possible previous infection which was treated VS false positive , await FTA-ABS test to confirm , no indication to treat at this point . screening for HIV is negative . (2) CVA (cerebral vascular accident) Assessment & Plan: with multiple vascular emboli, rule out cardiogenic source thrombotic VS Infectious VS [place] related vegetations. await blood culture x 2 , JOHN, RF and ESR , recommend LESA to better evaluate his valves . (3) CKD (chronic kidney disease) stage 3, GFR 30-59 ml/min Assessment & Plan: avoid nephrotoxics, close monitoring of renal function, follow up with nephrology (4) Failure to thrive in adult Assessment & Plan: etiology? dementia possibly, screening for HIV is negative , may need placement Subjective Constitutional: Reports: no symptoms HEENT: Reports: no symptoms Respiratory: Reports: no symptoms Breasts: Reports: no symptoms Cardiovascular: Reports: no symptoms Gastrointestinal/Abdominal: Reports: no symptoms Genitourinary: Reports: no symptoms Neurologic: Reports: no symptoms Psychiatric: Reports: no symptoms Skin: Reports: no symptoms Endocrine: Reports: no symptoms Hematologic: Reports: no symptoms Musculoskeletal: Reports: no symptoms Allergies: Coded Allergies: No Known Allergies (Unverified , 07/21/19) Subjective He was up in bed, awake and comfortable, oriented x 3 , no headache or blurry vision Objective Vital Signs Last 24 Hour Vital Signs Date Time Temp Pulse Resp B/P (MAP) Pulse Ox O2 Delivery O2 Flow Rate FiO2 08/07/19 09:00 Room Air 08/07/19 08:39 140/73 08/07/19 08:38 66 140/73 08/07/19 08:00 60 08/07/19 08:00 98.1 66 18 140/73 (95) 98 08/07/19 04:00 64 08/07/19 04:00 97.9 67 18 131/67 (88) 99 08/07/19 00:00 98.2 86 18 152/67 (95) 95 08/07/19 00:00 68 08/06/19 21:00 Room Air 08/06/19 20:00 85 08/06/19 20:00 98.1 88 18 150/66 (94) 96 08/06/19 18:22 146/79 08/06/19 18:22 68 146/79 08/06/19 16:00 98.1 76 18 146/79 (101) 97 08/06/19 16:00 68 08/06/19 15:41 80 Height (Feet): 5 Height (Inches): 5.00 Weight (Pounds): 176 General Appearance: WD/WN, no acute distress HEENT: normocephalic, atraumatic, anicteric, mucous membranes moist, PERRL Respiratory/Chest: chest wall non-tender, lungs clear, normal breath sounds, no respiratory distress, no accessory muscle use Cardiovascular: normal peripheral pulses, normal rate, regular rhythm, no gallop/murmur, no JVD Abdomen: normal bowel sounds, soft, non tender, no organomegaly, non distended , no mass, no scars Genitourinary: normal external genitalia Extremities: no cyanosis, no clubbing Skin: no rash, no lesions 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, alert, oriented x 3, responsive Lymphatic: no neck adenopathy, no groin adenopathy Musculoskeletal: normal muscle bulk, no effusion Laboratory Tests Test 08/06/19 21:15 08/06/19 21:30 08/07/19 05:35 Erythrocyte Sedimentation Rate 87 MM/HR (0-20) H Rheumatoid Factor Screen Pending Anti-Nuclear Antibody Screen Pending HIV (1&2) Antibody Rapid Negative (NEGATIVE) Sodium Level 140 MMOL/L (136-145) Potassium Level 4.5 MMOL/L (3.5-5.1) Chloride Level 107 MMOL/L (98-107) Carbon Dioxide Level 23 MMOL/L (21-32) Anion Gap 10 mmol/L (5-15) Blood Urea Nitrogen 52 mg/dL (7-18) H Creatinine 2.4 MG/DL (0.55-1.30) H Estimat Glomerular Filtration Rate mL/min (>60) Glucose Level 102 MG/DL (74-106) Calcium Level 8.8 MG/DL (8.5-10.1) Phosphorus Level 4.2 MG/DL (2.5-4.9) Magnesium Level 2.1 MG/DL (1.8-2.4) Pro-B-Type Natriuretic Peptide 275 pg/mL (0-125) H Triglycerides Level 61 MG/DL (30-150) Cholesterol Level 197 MG/DL (< 200) LDL Cholesterol 137 mg/dL (<100) H HDL Cholesterol 41 MG/DL (40-60) Cholesterol/HDL Ratio 4.8 (3.3-4.4) H Current Medications Medications (Trade) Dose Ordered Sig/Hanh Route PRN Reason Start Time Stop Time Status Last Admin Dose Admin Acetaminophen (Tylenol) 650 mg Q6H PRN ORAL Mild Pain/Temp > 100.5 08/06/19 23:45 09/05/19 23:44 Amlodipine Besylate (Norvasc) 10 mg BID ORAL 07/26/19 18:00 08/25/19 17:59 08/07/19 08:38 Bethanechol Chloride (Urecholine) 25 mg THREE TIMES A DAY ORAL 08/02/19 14:00 09/01/19 13:59 08/07/19 08:38 Bisacodyl (Dulcolax) 10 mg DAILYPRN PRN RECTAL Constipation 08/04/19 19:00 09/03/19 18:59 08/06/19 06:40 Clonidine HCl (Catapres TTS-3) 1 patch QWEEK TDERMAL 07/22/19 12:00 08/21/19 11:59 08/05/19 14:59 Clonidine HCl (Catapres Tab) 0.1 mg Q4H PRN ORAL sbp>170 08/06/19 18:15 09/05/19 18:14 Finasteride (Proscar) 5 mg DAILY ORAL 07/28/19 09:00 08/27/19 08:59 08/07/19 08:38 Folic Acid (Folate) 1 mg DAILY ORAL 08/06/19 09:00 09/05/19 08:59 08/07/19 08:38 Heparin Sodium (Porcine) (Heparin 5000 units/ml) 5,000 units EVERY 12 HOURS SUBQ 08/01/19 21:00 08/31/19 20:59 08/07/19 08:40 Hydralazine HCl (Apresoline) 100 mg BID ORAL 07/26/19 18:00 08/25/19 17:59 08/07/19 08:39 Quetiapine Fumarate (SEROqueL) 25 mg Q6H PRN ORAL For Anxiety 07/22/19 12:45 08/21/19 12:44 Quetiapine Fumarate (SEROqueL) 25 mg QHS ORAL 07/21/19 21:00 08/20/19 20:59 08/06/19 21:17 Sodium Chloride 1,000 ml @ 50 mls/hr Q20H IV 07/26/19 12:30 08/25/19 12:29 08/05/19 23:30 Tamsulosin HCl (Flomax) 0.4 mg BID ORAL 07/27/19 18:00 08/26/19 17:59 08/07/19 08:38 Anastasia Lion M.D. Aug 07, 2019 14:09
--- NOTE | 2019-08-07 15:34 | Cardiac Electrophysiology PN ---
Assessment/Plan Assessment/Plan 1. CVA due tomultiple emboli in cerebral hemisphere, basal ganglia, and left cerebellum. Echocardiogram EF 60%. LESA pending. Hold off on anticoagulation at this time in view of acute stroke to prevent hemorrhagic conversion as the patient is cleared from Neurology perspective. 2. Hypertension. Continue Norvasc 5 mg b.i.d., hydralazine 100 mg b.i.d. as well as clonidine patch weekly and p.r.n. clonidine 3. Benign prostatic hypertrophy on Flomax and Proscar. 4. Dementia, on Seroquel per Dr. Mandel. 5. Acute rhabdomyolysis. 6. Staph bacteremia. 7. Stage 3 chronic kidney disease. Subjective Subjective No new events Objective Last 24 Hour Vital Signs Date Time Temp Pulse Resp B/P (MAP) Pulse Ox O2 Delivery O2 Flow Rate FiO2 08/07/19 09:00 Room Air 08/07/19 08:39 140/73 08/07/19 08:38 66 140/73 08/07/19 08:00 60 08/07/19 08:00 98.1 66 18 140/73 (95) 98 08/07/19 04:00 64 08/07/19 04:00 97.9 67 18 131/67 (88) 99 08/07/19 00:00 98.2 86 18 152/67 (95) 95 08/07/19 00:00 68 08/06/19 21:00 Room Air 08/06/19 20:00 85 08/06/19 20:00 98.1 88 18 150/66 (94) 96 08/06/19 18:22 146/79 08/06/19 18:22 68 146/79 08/06/19 16:00 98.1 76 18 146/79 (101) 97 08/06/19 16:00 68 08/06/19 15:41 80 Intake and Output 08/06/19 08/07/19 19:00 07:00 Intake Total 480 ml Output Total 1200 ml Balance 480 ml -1200 ml Intake Oral 480 ml Output Urine Total 1200 ml Laboratory Tests Test 08/06/19 21:15 08/06/19 21:30 08/07/19 05:35 Erythrocyte Sedimentation Rate 87 MM/HR (0-20) H Rheumatoid Factor Screen Pending Anti-Nuclear Antibody Screen Pending HIV (1&2) Antibody Rapid Negative (NEGATIVE) Sodium Level 140 MMOL/L (136-145) Potassium Level 4.5 MMOL/L (3.5-5.1) Chloride Level 107 MMOL/L (98-107) Carbon Dioxide Level 23 MMOL/L (21-32) Anion Gap 10 mmol/L (5-15) Blood Urea Nitrogen 52 mg/dL (7-18) H Creatinine 2.4 MG/DL (0.55-1.30) H Estimat Glomerular Filtration Rate mL/min (>60) Glucose Level 102 MG/DL (74-106) Calcium Level 8.8 MG/DL (8.5-10.1) Phosphorus Level 4.2 MG/DL (2.5-4.9) Magnesium Level 2.1 MG/DL (1.8-2.4) Pro-B-Type Natriuretic Peptide 275 pg/mL (0-125) H Triglycerides Level 61 MG/DL (30-150) Cholesterol Level 197 MG/DL (< 200) LDL Cholesterol 137 mg/dL (<100) H HDL Cholesterol 41 MG/DL (40-60) Cholesterol/HDL Ratio 4.8 (3.3-4.4) H Objective HEAD AND NECK: No JVD. LUNGS: Clear. CARDIOVASCULAR: Regular S1 and S2 with no gallop or murmur. ABDOMEN: Soft and nontender. EXTREMITIES: No pitting edema. Lance Nichols MD Aug 07, 2019 15:34
[2019-08-07 16:00] VITALS: BP 138/64
--- NOTE | 2019-08-07 18:07 | Neurology Progress Note ---
Interim History Interim History Interim History Mr. Reji Au is a 79-year-old, right-handed, black gentleman, who has a relatively benign past history. He was brought to the hospital on 07/21/2019 after he had apparently fallen down and was on the floor of his apartment for 4 days. He himself has no recollection of what happened. Since he has been here he has been noted to have some gait problems. He feels about the same as yesterday. He was in bed enjoying his dinner when I went to see him. He continues to have significant cognitive dysfunction. He denies any new problems. He specifically denies any weakness on one side or the other, numbness on one side or the other, problems with speech, problems with language, or problems with his vision. Review of Systems Neuro Review of Systems Benign. Objective Physical Exam Last Vital Signs Date Time Temp Pulse Resp B/P (MAP) Pulse Ox O2 Delivery O2 Flow Rate FiO2 08/07/19 17:41 140/73 08/07/19 17:41 66 08/07/19 12:00 98.4 19 100 08/07/19 09:00 Room Air Laboratory Tests Test 08/06/19 21:15 08/06/19 21:30 08/07/19 05:35 Erythrocyte Sedimentation Rate 87 MM/HR (0-20) H Rheumatoid Factor Screen Pending Anti-Nuclear Antibody Screen Pending HIV (1&2) Antibody Rapid Negative (NEGATIVE) Sodium Level 140 MMOL/L (136-145) Potassium Level 4.5 MMOL/L (3.5-5.1) Chloride Level 107 MMOL/L (98-107) Carbon Dioxide Level 23 MMOL/L (21-32) Anion Gap 10 mmol/L (5-15) Blood Urea Nitrogen 52 mg/dL (7-18) H Creatinine 2.4 MG/DL (0.55-1.30) H Estimat Glomerular Filtration Rate mL/min (>60) Glucose Level 102 MG/DL (74-106) Calcium Level 8.8 MG/DL (8.5-10.1) Phosphorus Level 4.2 MG/DL (2.5-4.9) Magnesium Level 2.1 MG/DL (1.8-2.4) Pro-B-Type Natriuretic Peptide 275 pg/mL (0-125) H Triglycerides Level 61 MG/DL (30-150) Cholesterol Level 197 MG/DL (< 200) LDL Cholesterol 137 mg/dL (<100) H HDL Cholesterol 41 MG/DL (40-60) Cholesterol/HDL Ratio 4.8 (3.3-4.4) H Neurologic Exam Objective PHYSICAL EXAMINATION: GENERAL: He is a well-developed, relatively well-nourished, Black gentleman, lying in bed in no acute distress. HEAD: Normocephalic and atraumatic. NECK: No neck rigidity was observed. EENT examination: Benign. NEUROLOGICAL EXAMINATION: Mental status examination: He was awake and alert. He was oriented to self, July 2019 and hospital only. He did not know the name of the hospital, date or year. He was able to recall 3/3 words immediately but could only remember 1/3 after 1 minute and 3 minutes. He was able to remember presidents Trump and Obama only. His mathematical skills were impaired. His visual-spatial function was also impaired. Frontal systems tasks: He was unable to perform Luria's hand sequences. Speech: He had no dysarthria. Language: He had an anomia for low-frequency words. Cranial nerve examination: II: The visual kang were intact on confrontation testing. III, IV & : The external ocular movements were full. The pupils were 3 mm in diameter and reactive sluggishly to light. V: He had normal facial sensations, and the temporales, masseters, and pterygoids functioned normally. VII: He had normal facial expressions and no facial asymmetry. VIII: He was able to hear and had no nystagmus. IX: The palate moved symmetrically on phonation. X: He had no hoarseness of voice. XI: The sternocleidomastoids and trapezii functioned well. XII: The tongue was in the midline without any fasciculations or atrophy. Motor system: The tone was normal in all 4 extremities. Examination of muscle mass revealed no focal wasting. Examination of power revealed G 5/5 power in all muscle groups tested. Sensory examination: He had intact sensations to pinprick and light touch. He had bilaterally graphesthesia. Reflexes: 2+ and bilaterally symmetrical at the biceps, triceps, brachioradialis and knees. 0 at both ankles. The plantar responses were flexor. Coordination: He performed well on [id number] and yypu-uw-[id number] testing. Stance: Deferred. Gait: Deferred. Impression/Recommendations Diagnostic Impression DIAGNOSTIC IMPRESSION: 1. Mr. Reji Au is a 79-year-old, right-handed, black gentleman, who has a relatively benign past history. He was brought to the hospital on 07/21/2019 after he had apparently fallen down and was on the floor of his apartment for 4 days. He himself has no recollection of what happened. Since he has been here he has been noted to have some gait problems. 2. He feels about the same as yesterday. He was in bed enjoying his dinner when I went to see him. He continues to have significant cognitive dysfunction. He denies any new problems. 3. On neurological examination, at this time, he is disoriented to the name of the hospital and date. He has significant problems with recent and remote memory, visuospatial function, higher cognitive function, and language. He also has significant bilateral frontal systems dysfunction. He has bilateral agraphesthesia. His strength is excellent in all 4 extremities but he is apractic. 4. Laboratory data revealed that he is anemic with a hemoglobin of 11.5 g. His latest BUN is 42 and latest creatinine is 2.3. When he came in his CK was 2257 and it has now normalized 241. He is folic acid deficient with a folic acid level of 7.5. His RPR is positive in a low titre of 1:1. The FTA-ABS is pending. 5. The MRI scan of the brain performed on 08/05/2019 revealed multiple acute infarcts in involving both cerebral hemispheres, basal ganglia, and the left cerebellum. In addition multiple old small infarcts scattered in the brain were also seen. 6. Thus far cardiac monitoring has revealed no arrhythmia. 7. The patient's history and neurological examination are most consistent with significant cognitive dysfunction and in addition stance and possibly gait apraxia. He also exhibits significant frontal systems dysfunction. This is related to shower of emboli to the brain acutely and in addition remote possibly embolic phenomena to the brain. Recommendations RECOMMENDATIONS: 1. Continue present management. 2. Transesophageal echocardiogram with bubble study should be performed to evaluate the patient for cardiogenic source of emboli. 3. Continue cardiac monitoring to exclude atrial fibrillation as a reason for a cardiogenic source of emboli. 4. Agree with ID work up as per Dr. Lion. 5. Continue physical and occupational therapy to mobilize patient. 6. Folic acid 1 mg daily for folate deficiency. 7. Observe closely. Beka Smith M.D., M.S.P.H. Neurologist & Clinical Neurophysiologist Beka Smith MD Aug 07, 2019 18:07
--- NOTE | 2019-08-07 19:36 | NUR ---
HAND-OFF: Report given to Isabella MCGEE.
--- NOTE | 2019-08-07 19:40 | NUR ---
NURSE NOTES: Pt in stable condition. Denies any pain. No s/s of distress or discomfort noted. Pt resting in bed comfortably. Bed in low and locked position, call light within reach, bedside table within reach. dickson catheter draining, patent. will Continue to monitor.
[2019-08-07 20:00] VITALS: BP 137/70
--- NOTE | 2019-08-07 20:29 | Nephrology Progress Note ---
Assessment/Plan Problem List: (1) Hypertension, benign (2) Toxic metabolic encephalopathy (3) Gait abnormality (4) Rhabdomyolysis (5) JERMAINE (acute kidney injury) (6) Dehydration (7) Episode of generalized weakness (8) Bacteremia due to Staphylococcus (9) CKD (chronic kidney disease) stage 3, GFR 30-59 ml/min (10) Urinary retention Plan f/u lab, , mobilize, try to get coop to po meds lab trend better until 1/3 rise in creat , ckd3, renal US, mobilize, dickson placed as 800 ml residual , would keep dickson for one week, flomax and finasteride started, voiding trial so far bladder residual 350 08/02 then voided check again later, add urecholine, dickson was replaced renal function stable--recheck lab as prior afib , now nsr, bun/cr higher 08/07 I will increase iv rate, repeat 08/08 Subjective ROS Limited/Unobtainable: Yes Objective Objective Last 24 Hour Vital Signs Date Time Temp Pulse Resp B/P (MAP) Pulse Ox O2 Delivery O2 Flow Rate FiO2 08/07/19 17:41 140/73 08/07/19 17:41 66 140/73 08/07/19 16:00 78 08/07/19 16:00 98.5 74 18 138/64 (88) 93 08/07/19 12:00 98.4 101 19 137/64 (88) 100 08/07/19 09:00 Room Air 08/07/19 08:39 140/73 08/07/19 08:38 66 140/73 08/07/19 08:00 60 08/07/19 08:00 98.1 66 18 140/73 (95) 98 08/07/19 04:00 64 08/07/19 04:00 97.9 67 18 131/67 (88) 99 08/07/19 00:00 98.2 86 18 152/67 (95) 95 08/07/19 00:00 68 08/06/19 21:00 Room Air Intake and Output 08/06/19 08/07/19 19:00 07:00 Intake Total 480 ml Output Total 1200 ml Balance 480 ml -1200 ml Intake Oral 480 ml Output Urine Total 1200 ml Laboratory Tests 08/06/19 21:15: Erythrocyte Sedimentation Rate 87H 08/06/19 21:30: Rheumatoid Factor Screen [Pending], Anti-Nuclear Antibody Screen [Pending], HIV (1&2) Antibody Rapid Negative 08/07/19 05:35: Sodium Level 140, Potassium Level 4.5, Chloride Level 107, Carbon Dioxide Level 23, Anion Gap 10, Blood Urea Nitrogen 52H, Creatinine 2.4H, Estimat Glomerular Filtration Rate , Glucose Level 102, Calcium Level 8.8, Phosphorus Level 4.2, Magnesium Level 2.1, Pro-B-Type Natriuretic Peptide 275H, Triglycerides Level 61 , Cholesterol Level 197, LDL Cholesterol 137H, HDL Cholesterol 41, Cholesterol/ HDL Ratio 4.8H Height (Feet): 5 Height (Inches): 5.00 Weight (Pounds): 176 General Appearance: lethargic, confused EENT: normal ENT inspection Neck: normal alignment Cardiovascular: normal rate Respiratory/Chest: lungs clear Abdomen: non tender Extremities: non-tender, no edema Neurologic: hat measurer II-XII grossly normal Arthur Bethea MD Aug 07, 2019 20:29
--- NOTE | 2019-08-07 21:15 | Consultation ---
DATE OF CONSULTATION: 08/07/2019 INFECTIOUS DISEASE CONSULTATION CONSULTING PHYSICIAN: Anastasia Lion M.D. REQUESTING PHYSICIAN: Shiraz Cervantes M.D. REASON FOR CONSULTATION: Possible RPR with possible syphilis. Recommendation for antibiotics treatment. HISTORY OF PRESENT ILLNESS: The patient is a 79-year-old male with a past medical history of hypertension presented to the emergency room at [facility] on July 21, 2019 via paramedics after he was found down on the floor for couple of days. The patient could not get up to the phone to call paramedics. He had severe generalized weakness. The patient became dehydrated and weak. So, his neighbors called 911 and he was picked up by paramedics and brought in to the ER for evaluation. The patient was found to have elevated CK level due to rhabdomyolysis and was dehydrated with lactic acidosis. His blood pressure also was out of control. So, the patient was admitted to the hospital, started on IV fluid with antihypertension medication, and he was also seen and evaluated by earth boring machine operator due to his renal failure. The patient eventually started becoming delirious. His cultures on admission grew Staphylococcus epidermidis, which grew only from anaerobic bottle. The second set was negative. His urine culture also on the August 01, 2019 showed no growth and he never had fever or was febrile during his hospitalization stay. His chest x-ray on admission did not show any acute infiltration, but atelectases. The patient had some mental status change, which required Neurology consultation due to confusion and delirious state. The patient received MRI of the brain, which showed evidence of small multiple infarcts scattered through the cerebral hemispheres, basal ganglia, and left cerebellum concerning for cardiogenic origin. He also had a screening for syphilis with RPR, which came back reactive with a titer of 1 to 1, so Infectious Disease consultation was requested for further evaluation and possible treatment of active syphilis disease. The patient was seen and examined. He was awake, alert, and oriented x3. Denied any headache or blurry vision. No sore throat, runny nose, or earache. No chest pain or palpitation. No abdominal pain, nausea, or vomiting. No diarrhea. No urinary symptoms. The patient denied any previous history of syphilis or being treated for syphilis in the past. He also denied any sexually transmitted disease infection in the past. REVIEW OF SYSTEMS: A 14-point of systems reviewed were all negative apart from the one I mentioned above in my History and Physical. PAST MEDICAL HISTORY: Unclear whether he had hypertension or chronic renal failure before coming to the hospital since he never so physician for long time. PAST SURGICAL HISTORY: Negative. Not on record. ALLERGIES: He denied any allergies to antibiotics or medication. SOCIAL HISTORY: The patient lives at home by himself. He has 1 child, [place]. He is . He used to work in the [employer] business, but he is retired currently. MEDICATIONS: Currently, he is on Tylenol, Catapres, folate, Dulcolax, heparin, finasteride, Flomax, Norvasc, Seroquel, Catapres. LABORATORY DATA: Labs showed white count of 7.9, hemoglobin of 14.3, and platelet count of 329,000. BUN of 52 and creatinine of 2.3. SEROLOGIES: RPR was reactive. RPR titer was 1 to 1. IMAGING: Chest x-ray on admission showed left lower lobe atelectases. MRI of the brain showed multiple small infarcts involving the cerebral hemispheres and basal ganglia with distribution concerning for cardiogenic embolic source. PHYSICAL EXAMINATION: VITAL SIGNS: Temperature 98.1, pulse 68, respirations 18, blood pressure 146/79, and saturation 97% on room air. GENERAL: An elderly male, laying in bed. Awake, alert, and oriented x3, not in acute distress. HEENT: Normocephalic and atraumatic. Pupils are reactive to light equally. Cloudy lenses in both eyes and congested sclera. Moist oral mucosa with thrush in his mouth. NECK: Supple. No lymphadenopathy. CARDIOVASCULAR: Regular rate and rhythm. No murmur or gallop. LUNGS: He had diminished breathing sounds at the bases. Normal breathing efforts. No wheezing or rhonchi. ABDOMEN: Soft, nontender, and nondistended. Normal bowel sounds. No hepatosplenomegaly. No ascites. EXTREMITIES: No edema or cyanosis. No clubbing. SKIN: No rash. No hives. ASSESSMENT AND RECOMMENDATION: 1. Positive RPR. Rule out false positive result versus previous infection, which was treated pending the confirmatory test with FTA-ABS. At this point, we will monitor the patient until his Treponema test is back. We will determine whether he needs to be treated or have further workup or not based on his Treponema test with FTA-ABS. 2. 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 Vegetation versus thrombosis versus marantic endocarditis. We will send blood culture x2. Obtain sedimentation rate, JOHN, and rheumatoid factor. Recommend LESA to better evaluate his valves to rule out any cardiogenic source. 3. Chronic kidney disease. Unclear etiology. Continue gentle hydration. Avoid nephrotoxic. Follow up with Renal. 4. Failure to thrive. Screening for HIV will be done. The patient may need placement in the future. Thank you for the consult. ID will continue to follow. Please feel free to call with any question. Anastasia Lion M.D. DR: YARIEL JOB#: [id number] CC: THU
[2019-08-08] VITALS: BP 139/72
--- NOTE | 2019-08-08 02:45 | Progress Note ---
DATE: 08/07/2019 SUBJECTIVE: The patient remains on telemetry. He has been seen and evaluated by Cardiology and Neurology. LESA and TTE are pending. There is no change in his mental status. He denies any cough, congestion, shortness of breath, or other complaints. Past medical history, past surgical history, allergies, medications, social history, and family history are unchanged. REVIEW OF SYSTEMS: Negative other than above. PHYSICAL EXAM: GENERAL: He is afebrile. Vital signs are stable. He is awake, alert, and oriented x2. HEENT: Normocephalic and atraumatic. Oropharynx is clear with moist mucous membranes. NECK: Supple without lymphadenopathy or JVD. CHEST: Clear to auscultation bilaterally. HEART: Regular rate and rhythm. ABDOMEN: Soft, nontender, and nondistended. EXTREMITIES: No cyanosis, clubbing, or edema. ANCILLARY DATA: Laboratories reviewed. ASSESSMENT: The patient is a 79-year-old male admitted with CKD, rhabdomyolysis, and altered mental status, noted to have acute on chronic CVA, and shower emboli in the brain. PROBLEM LIST: 1. Altered mental status, likely secondary to CVA and encephalopathy. 2. Acute on chronic CVA. 3. Possible underlying atrial fibrillation. 4. JERMAINE/rhabdomyolysis. 5. Urinary retention. TREATMENT PLAN: 1. Continue telemetry. 2. Await LESA and TTE. 3. Follow [employer] consultant recommendations. 4. Continue Walsh catheter. 5. DVT prophylaxis. Shiraz Cervantes M.D. DR: GIDEON JOB#: [id number] CC:
[2019-08-08 04:25] VITALS: BP 147/76
--- NOTE | 2019-08-08 06:30 | Progress Note ---
DATE: 08/07/2019 SUBJECTIVE: The patient is having psychomotor retardation, he is more confused. The patient's mental condition is unchanged since previous encounter. He is weak. MENTAL STATUS EXAMINATION: Alert and oriented times self and place. Mood is depressed. Affect is constricted, congruent with mood. Thought process is concrete. Thought content, no suicidal or homicidal ideation. ASSESSMENT: 1. Acute toxic encephalopathy. 2. Depression. PLAN: 1. Continue current psychotropic medication. 2. Provide the patient with reality orientation and supportive therapy. Nury Mandel M.D. DR: LILIYA JOB#: [id number] CC:
--- NOTE | 2019-08-08 07:01 | NUR ---
HAND-OFF: Report given to ARELY Buitrago.
[2019-08-08 07:51] LABS: ANION GAP 16 mmol/L (5-15); BLOOD UREA NITROGEN 49 mg/dL (7-18); CALCIUM 9.1 MG/DL (8.5-10.1); CARBON DIOXIDE 18 MMOL/L (21-32); CHLORIDE 107 MMOL/L (98-107); CREATINE KINASE 114 U/L (26-308); CREATININE 2.4 MG/DL (0.55-1.30); SODIUM 141 MMOL/L (136-145)
[2019-08-08 07:52] LABS: BASOPHILS % (AUTO) 1.3 % (0.0-2.0); EOSINOPHILS % (AUTO) 7.2 % (0.0-3.0); HEMATOCRIT 30.2 % (42.0-52.0); HEMOGLOBIN 9.7 G/DL (14.2-18.0); LYMPHOCYTES % (AUTO) 18.9 % (20.0-45.0); MEAN CORPUSCULAR VOLUME 93 FL (80-99); MONOCYTES % (AUTO) 10.9 % (1.0-10.0); NEUTROPHILS % (AUTO) 61.7 % (45.0-75.0); PLATELET COUNT 221 K/UL (150-450); RED BLOOD COUNT 3.24 M/UL (4.70-6.10); RED CELL DISTRIBUTION WIDTH 12.2 % (11.6-14.8); WHITE BLOOD COUNT 6.2 K/UL (4.8-10.8)
[2019-08-08 08:00] VITALS: BP 138/68
--- NOTE | 2019-08-08 08:30 | Nephrology Progress Note ---
Assessment/Plan Problem List: (1) Hypertension, benign (2) Toxic metabolic encephalopathy (3) Gait abnormality (4) Rhabdomyolysis (5) JERMAINE (acute kidney injury) (6) Dehydration (7) Episode of generalized weakness (8) Bacteremia due to Staphylococcus (9) CKD (chronic kidney disease) stage 3, GFR 30-59 ml/min (10) Urinary retention Plan f/u lab, , mobilize, try to get coop to po meds lab trend better until 1/3 rise in creat , ckd3, renal US, mobilize, dickson placed as 800 ml residual , would keep dickson for one week, flomax and finasteride started, voiding trial so far bladder residual 350 08/02 then voided check again later, add urecholine, dickson was replaced renal function stable--recheck lab as prior afib , now nsr, bun/cr higher 08/07 I will increase iv rate, repeat 08/08 reviewed, can observe K, voiding trial again Subjective ROS Limited/Unobtainable: Yes Objective Objective Last 24 Hour Vital Signs Date Time Temp Pulse Resp B/P (MAP) Pulse Ox O2 Delivery O2 Flow Rate FiO2 08/08/19 04:27 67 08/08/19 04:25 97.7 70 19 147/76 (99) 98 08/08/19 00:34 73 08/08/19 00:00 97.7 76 18 139/72 (94) 97 08/07/19 21:01 Room Air 08/07/19 20:00 74 08/07/19 20:00 97.9 73 19 137/70 (92) 96 08/07/19 17:41 140/73 08/07/19 17:41 66 140/73 08/07/19 16:00 78 08/07/19 16:00 98.5 74 18 138/64 (88) 93 08/07/19 12:00 98.4 101 19 137/64 (88) 100 08/07/19 09:00 Room Air 08/07/19 08:39 140/73 08/07/19 08:38 66 140/73 Intake and Output 08/07/19 08/08/19 19:00 07:00 Intake Total 140 ml 700 ml Output Total 8700 ml 1700 ml Balance -8560 ml -1000 ml Intake Oral 140 ml IV Total 700 ml Output Urine Total 8700 ml 1700 ml # Voids 3 Laboratory Tests 08/08/19 04:29: White Blood Count 6.2, Red Blood Count 3.24L, Hemoglobin 9.7L, Hematocrit 30.2L , Mean Corpuscular Volume 93, Mean Corpuscular Hemoglobin 29.9, Mean Corpuscular Hemoglobin Concent 32.1, Red Cell Distribution Width 12.2, Platelet Count 221, Mean Platelet Volume 7.4, Neutrophils (%) (Auto) 61.7, Lymphocytes (% ) (Auto) 18.9L, Monocytes (%) (Auto) 10.9H, Eosinophils (%) (Auto) 7.2H, Basophils (%) (Auto) 1.3, Sodium Level 141, Potassium Level 5.0, Chloride Level 107, Carbon Dioxide Level 18L, Anion Gap 16H, Blood Urea Nitrogen 49H, Creatinine 2.4H, Estimat Glomerular Filtration Rate , Glucose Level 75, Calcium Level 9.1, Total Creatine Kinase 114 Height (Feet): 5 Height (Inches): 5.00 Weight (Pounds): 176 General Appearance: alert, confused EENT: normal ENT inspection Neck: normal alignment Cardiovascular: normal rate Respiratory/Chest: lungs clear Abdomen: non tender Extremities: no edema Neurologic: nursing attendant II-XII grossly normal Arthur Bethea MD Aug 08, 2019 08:30
[2019-08-08] MEDS: Tamsulosin 0.4mg cap ORAL SCH ×2 (09:07→18:14)
[2019-08-08] MEDS: HydrALAZINE 50mg tab ORAL SCH ×2 (09:07→18:14)
[2019-08-08] MEDS: Heparin 5000 units/ml inj SUBQ SCH ×2 (09:09→20:30)
[2019-08-08] MEDS: Bethanechol 25mg Tab ORAL SCH ×3 (09:10→18:14)
[2019-08-08 12:00] VITALS: BP 148/60
--- NOTE | 2019-08-08 12:18 | NUR ---
d/c urinary folly cath as ordered, patient tolerated well. will continue to monitor per protocol Addendum: 08/08/19 at 1704 by MILKA BRISCOE RN RN no urine out put since d/c f/c bladder scan done per protocol and 395ml residual noted >>>>>>will continue to monitor will do in and out cat if residual more than 450 ml as ordered. Addendum: 08/08/19 at 1834 by MILKA BRISCOE RN RN bladder scan done and 550ml residual noted in and out cath done>>>>>>>>>>>>>520 ml dark yellow color urine out will continue to monitor.
--- NOTE | 2019-08-08 12:21 | Cardiac Electrophysiology PN ---
Assessment/Plan Assessment/Plan 1. 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 Echocardiogram EF 60%. LESA pending. Hold off on anticoagulation at this time in view of acute stroke to prevent hemorrhagic conversion as the patient is cleared from Neurology perspective.Remained in SR on tele. 2. Hypertension. Continue Norvasc 5 mg b.i.d., hydralazine 100 mg b.i.d. as well as clonidine patch weekly and p.r.n. clonidine 3. Benign prostatic hypertrophy on Flomax and Proscar. 4. Dementia, on Seroquel per Dr. Mandel. 5. Acute rhabdomyolysis. 6. Staph bacteremia. 7. Stage 3 chronic kidney disease. Subjective Subjective No new events. In SR confused Objective Last 24 Hour Vital Signs Date Time Temp Pulse Resp B/P (MAP) Pulse Ox O2 Delivery O2 Flow Rate FiO2 08/08/19 09:08 65 138/68 08/08/19 09:07 138/68 08/08/19 09:00 Room Air 08/08/19 08:00 96.7 65 18 138/68 (91) 98 08/08/19 04:27 67 08/08/19 04:25 97.7 70 19 147/76 (99) 98 08/08/19 00:34 73 08/08/19 00:00 97.7 76 18 139/72 (94) 97 08/07/19 21:01 Room Air 08/07/19 20:00 74 08/07/19 20:00 97.9 73 19 137/70 (92) 96 08/07/19 17:41 140/73 08/07/19 17:41 66 140/73 08/07/19 16:00 78 08/07/19 16:00 98.5 74 18 138/64 (88) 93 Intake and Output 08/07/19 08/08/19 19:00 07:00 Intake Total 140 ml 700 ml Output Total 8700 ml 1700 ml Balance -8560 ml -1000 ml Intake Oral 140 ml IV Total 700 ml Output Urine Total 8700 ml 1700 ml # Voids 3 Laboratory Tests Test 08/08/19 04:29 White Blood Count 6.2 K/UL (4.8-10.8) Red Blood Count 3.24 M/UL (4.70-6.10) L Hemoglobin 9.7 G/DL (14.2-18.0) L Hematocrit 30.2 % (42.0-52.0) L Mean Corpuscular Volume 93 FL (80-99) Mean Corpuscular Hemoglobin 29.9 PG (27.0-31.0) Mean Corpuscular Hemoglobin Concent 32.1 G/DL (32.0-36.0) Red Cell Distribution Width 12.2 % (11.6-14.8) Platelet Count 221 K/UL (150-450) Mean Platelet Volume 7.4 FL (6.5-10.1) Neutrophils (%) (Auto) 61.7 % (45.0-75.0) Lymphocytes (%) (Auto) 18.9 % (20.0-45.0) L Monocytes (%) (Auto) 10.9 % (1.0-10.0) H Eosinophils (%) (Auto) 7.2 % (0.0-3.0) H Basophils (%) (Auto) 1.3 % (0.0-2.0) Sodium Level 141 MMOL/L (136-145) Potassium Level 5.0 MMOL/L (3.5-5.1) Chloride Level 107 MMOL/L (98-107) Carbon Dioxide Level 18 MMOL/L (21-32) L Anion Gap 16 mmol/L (5-15) H Blood Urea Nitrogen 49 mg/dL (7-18) H Creatinine 2.4 MG/DL (0.55-1.30) H Estimat Glomerular Filtration Rate mL/min (>60) Glucose Level 75 MG/DL (74-106) Calcium Level 9.1 MG/DL (8.5-10.1) Total Creatine Kinase 114 U/L (26-308) Microbiology Date/Time Source Procedure Growth Status 08/06/19 21:30 Blood Blood Culture - Preliminary NO GROWTH AFTER 24 HOURS Resulted 08/06/19 21:15 Blood Blood Culture - Preliminary NO GROWTH AFTER 24 HOURS Resulted Objective HEAD AND NECK: No JVD. LUNGS: Clear. CARDIOVASCULAR: Regular S1 and S2 with no gallop or murmur. ABDOMEN: Soft and nontender. EXTREMITIES: No pitting edema. Lance Nichols MD Aug 08, 2019 12:21
--- NOTE | 2019-08-08 13:47 | NUR ---
RD ASSESSMENT & RECOMMENDATIONS SEE CARE ACTIVITY FOR COMPLETE ASSESSMENT DAILY ESTIMATED NEEDS: Needs based on cardiac, 69kg abw 25-30 kcals/kg 1843-3711 total kcals 1-1.2 g protein/kg 69-83 g total protein 25-30 mL/kg 9027-9347 total fluid mLs NUTRITION DIAGNOSIS: Altered nutrition related lab values R/T dehydration, HTN, clinical condition as evidenced by elev creat (1.8 -> 2.4), elev T bili (1.1 -> wnl), elev BPs (220/110 -> now improved), low K (3.3 -> wnl), elev total creatine kinase (2240 ->440-> now wnl). CURRENT DIET:REGULAR, soft easy chew PO DIET RECOMMENDATIONS: LOW NA/ texture as tolerated ADDITIONAL RECOMMENDATIONS: * Calibrated bedscale wt * Monitor lytes, replete as needed * Monitor for bowel movement -> consider bowel regimen * Monitor for continued good PO intake
--- NOTE | 2019-08-08 14:04 | Infectious Diseases Prog Note ---
Assessment/Plan Problems: (1) Positive RPR test Assessment & Plan: with low titer possible previous infection which was treated VS false positive result , await FTA-ABS test to confirm , no indication to treat at this point . screening for HIV is negative . will continue to monitor clinically (2) CVA (cerebral vascular accident) Assessment & Plan: with multiple vascular emboli, rule out cardiogenic source, thrombotic VS Marantic related vegetations. blood culture x 2 is negative , with negative JOHN, and RF screening , recommend LESA to better evaluate his valves . doesn't meet criteria for infectious endocarditis (3) CKD (chronic kidney disease) stage 3, GFR 30-59 ml/min Assessment & Plan: avoid nephrotoxics, close monitoring of renal function, follow up with nephrology (4) Failure to thrive in adult Assessment & Plan: etiology? dementia possibly, screening for HIV is negative , may need placement (5) Gait abnormality Assessment & Plan: PT/OT eval and possible placement Subjective Constitutional: Reports: no symptoms HEENT: Reports: no symptoms Respiratory: Reports: no symptoms Breasts: Reports: no symptoms Cardiovascular: Reports: no symptoms Gastrointestinal/Abdominal: Reports: no symptoms Genitourinary: Reports: no symptoms Neurologic: Reports: no symptoms Psychiatric: Reports: no symptoms Skin: Reports: no symptoms Endocrine: Reports: no symptoms Hematologic: Reports: no symptoms Musculoskeletal: Reports: no symptoms Allergies: Coded Allergies: No Known Allergies (Unverified , 07/21/19) Subjective He was resting in bed, awake and comfortable, oriented x 3 , no headache or blurry vision no cough or SOB, has unsteady gait Objective Vital Signs Last 24 Hour Vital Signs Date Time Temp Pulse Resp B/P (MAP) Pulse Ox O2 Delivery O2 Flow Rate FiO2 08/08/19 12:00 98.6 75 19 148/60 (89) 98 08/08/19 09:08 65 138/68 08/08/19 09:07 138/68 08/08/19 09:00 Room Air 08/08/19 08:00 96.7 65 18 138/68 (91) 98 08/08/19 04:27 67 08/08/19 04:25 97.7 70 19 147/76 (99) 98 08/08/19 00:34 73 08/08/19 00:00 97.7 76 18 139/72 (94) 97 08/07/19 21:01 Room Air 08/07/19 20:00 74 08/07/19 20:00 97.9 73 19 137/70 (92) 96 08/07/19 17:41 140/73 08/07/19 17:41 66 140/73 08/07/19 16:00 78 08/07/19 16:00 98.5 74 18 138/64 (88) 93 Height (Feet): 5 Height (Inches): 5.00 Weight (Pounds): 176 General Appearance: WD/WN, no acute distress HEENT: normocephalic, atraumatic, anicteric, mucous membranes moist, PERRL Respiratory/Chest: chest wall non-tender, lungs clear, normal breath sounds, no respiratory distress, no accessory muscle use Cardiovascular: normal peripheral pulses, normal rate, regular rhythm, no gallop/murmur, no JVD Abdomen: normal bowel sounds, soft, non tender, no organomegaly, non distended , no mass, no scars Extremities: no cyanosis, no clubbing Skin: no rash, no lesions, no ulcers Neurologic/Psychiatric: operator catalyst concentration II-XII grossly normal, alert, oriented x 3, responsive Lymphatic: no neck adenopathy, no groin adenopathy Musculoskeletal: normal muscle bulk, no effusion Microbiology Date/Time Source Procedure Growth Status 08/06/19 21:30 Blood Blood Culture - Preliminary NO GROWTH AFTER 24 HOURS Resulted 08/06/19 21:15 Blood Blood Culture - Preliminary NO GROWTH AFTER 24 HOURS Resulted Laboratory Tests Test 08/08/19 04:29 White Blood Count 6.2 K/UL (4.8-10.8) Red Blood Count 3.24 M/UL (4.70-6.10) L Hemoglobin 9.7 G/DL (14.2-18.0) L Hematocrit 30.2 % (42.0-52.0) L Mean Corpuscular Volume 93 FL (80-99) Mean Corpuscular Hemoglobin 29.9 PG (27.0-31.0) Mean Corpuscular Hemoglobin Concent 32.1 G/DL (32.0-36.0) Red Cell Distribution Width 12.2 % (11.6-14.8) Platelet Count 221 K/UL (150-450) Mean Platelet Volume 7.4 FL (6.5-10.1) Neutrophils (%) (Auto) 61.7 % (45.0-75.0) Lymphocytes (%) (Auto) 18.9 % (20.0-45.0) L Monocytes (%) (Auto) 10.9 % (1.0-10.0) H Eosinophils (%) (Auto) 7.2 % (0.0-3.0) H Basophils (%) (Auto) 1.3 % (0.0-2.0) Sodium Level 141 MMOL/L (136-145) Potassium Level 5.0 MMOL/L (3.5-5.1) Chloride Level 107 MMOL/L (98-107) Carbon Dioxide Level 18 MMOL/L (21-32) L Anion Gap 16 mmol/L (5-15) H Blood Urea Nitrogen 49 mg/dL (7-18) H Creatinine 2.4 MG/DL (0.55-1.30) H Estimat Glomerular Filtration Rate mL/min (>60) Glucose Level 75 MG/DL (74-106) Calcium Level 9.1 MG/DL (8.5-10.1) Total Creatine Kinase 114 U/L (26-308) Current Medications Medications (Trade) Dose Ordered Sig/Hanh Route PRN Reason Start Time Stop Time Status Last Admin Dose Admin Acetaminophen (Tylenol) 650 mg Q6H PRN ORAL Mild Pain/Temp > 100.5 08/06/19 23:45 09/05/19 23:44 Amlodipine Besylate (Norvasc) 10 mg BID ORAL 07/26/19 18:00 08/25/19 17:59 08/08/19 09:08 Bethanechol Chloride (Urecholine) 25 mg THREE TIMES A DAY ORAL 08/02/19 14:00 09/01/19 13:59 08/08/19 13:43 Bisacodyl (Dulcolax) 10 mg DAILYPRN PRN RECTAL Constipation 08/04/19 19:00 09/03/19 18:59 08/06/19 06:40 Clonidine HCl (Catapres TTS-3) 1 patch QWEEK TDERMAL 07/22/19 12:00 08/21/19 11:59 08/05/19 14:59 Clonidine HCl (Catapres Tab) 0.1 mg Q4H PRN ORAL sbp>170 08/06/19 18:15 2/14/20 18:14 Finasteride (Proscar) 5 mg DAILY ORAL 07/28/19 09:00 08/27/19 08:59 08/08/19 09:08 Folic Acid (Folate) 1 mg DAILY ORAL 08/06/19 09:00 09/05/19 08:59 08/08/19 09:08 Heparin Sodium (Porcine) (Heparin 5000 units/ml) 5,000 units EVERY 12 HOURS SUBQ 08/01/19 21:00 08/31/19 20:59 08/08/19 09:09 Hydralazine HCl (Apresoline) 100 mg BID ORAL 07/26/19 18:00 08/25/19 17:59 08/08/19 09:07 Quetiapine Fumarate (SEROqueL) 25 mg Q6H PRN ORAL For Anxiety 07/22/19 12:45 08/21/19 12:44 Quetiapine Fumarate (SEROqueL) 25 mg QHS ORAL 07/21/19 21:00 08/20/19 20:59 08/07/19 21:00 Tamsulosin HCl (Flomax) 0.4 mg BID ORAL 07/27/19 18:00 08/26/19 17:59 08/08/19 09:07 Anastasia Lion M.D. Aug 08, 2019 14:04
--- NOTE | 2019-08-08 14:39 | Neurology Progress Note ---
Interim History Interim History Interim History Mr. Reji Au is a 79-year-old, right-handed, black gentleman, who has a relatively benign past history. He was brought to the hospital on 07/21/2019 after he had apparently fallen down and was on the floor of his apartment for 4 days. He himself has no recollection of what happened. Since he has been here he has been noted to have some gait problems. He feels well today. He was in bed enjoying his lunch. He continues to have significant cognitive dysfunction. He denies any new problems. He specifically denies any weakness on one side or the other, numbness on one side or the other, problems with speech, problems with language, or problems with his vision. Review of Systems Neuro Review of Systems Benign. Objective Physical Exam Last Vital Signs Date Time Temp Pulse Resp B/P (MAP) Pulse Ox O2 Delivery O2 Flow Rate FiO2 08/08/19 12:00 98.6 75 19 148/60 (89) 98 08/08/19 09:00 Room Air Laboratory Tests Test 08/08/19 04:29 White Blood Count 6.2 K/UL (4.8-10.8) Red Blood Count 3.24 M/UL (4.70-6.10) L Hemoglobin 9.7 G/DL (14.2-18.0) L Hematocrit 30.2 % (42.0-52.0) L Mean Corpuscular Volume 93 FL (80-99) Mean Corpuscular Hemoglobin 29.9 PG (27.0-31.0) Mean Corpuscular Hemoglobin Concent 32.1 G/DL (32.0-36.0) Red Cell Distribution Width 12.2 % (11.6-14.8) Platelet Count 221 K/UL (150-450) Mean Platelet Volume 7.4 FL (6.5-10.1) Neutrophils (%) (Auto) 61.7 % (45.0-75.0) Lymphocytes (%) (Auto) 18.9 % (20.0-45.0) L Monocytes (%) (Auto) 10.9 % (1.0-10.0) H Eosinophils (%) (Auto) 7.2 % (0.0-3.0) H Basophils (%) (Auto) 1.3 % (0.0-2.0) Sodium Level 141 MMOL/L (136-145) Potassium Level 5.0 MMOL/L (3.5-5.1) Chloride Level 107 MMOL/L (98-107) Carbon Dioxide Level 18 MMOL/L (21-32) L Anion Gap 16 mmol/L (5-15) H Blood Urea Nitrogen 49 mg/dL (7-18) H Creatinine 2.4 MG/DL (0.55-1.30) H Estimat Glomerular Filtration Rate mL/min (>60) Glucose Level 75 MG/DL (74-106) Calcium Level 9.1 MG/DL (8.5-10.1) Total Creatine Kinase 114 U/L (26-308) Neurologic Exam Objective PHYSICAL EXAMINATION: GENERAL: He is a well-developed, relatively well-nourished, Black gentleman, lying in bed in no acute distress. HEAD: Normocephalic and atraumatic. NECK: No neck rigidity was observed. EENT examination: Benign. NEUROLOGICAL EXAMINATION: Mental status examination: He was awake and alert. He was oriented to self, July 2019 and hospital only. He did not know the name of the hospital or date. He was able to recall 3/3 words immediately but could only remember 1/3 after 1 minute and 3 minutes. He was able to remember presidents Trump and Obama only with hints. His mathematical skills were impaired. His visual-spatial function was also impaired. Frontal systems tasks: He was unable to perform Luria's hand sequences. Speech: He had no dysarthria. Language: He had an anomia for low-frequency words. Cranial nerve examination: II: The visual kang were intact on confrontation testing. III, IV & : The external ocular movements were full. The pupils were 3 mm in diameter and reactive sluggishly to light. V: He had normal facial sensations, and the temporales, masseters, and pterygoids functioned normally. VII: He had normal facial expressions and no facial asymmetry. VIII: He was able to hear and had no nystagmus. IX: The palate moved symmetrically on phonation. X: He had no hoarseness of voice. XI: The sternocleidomastoids and trapezii functioned well. XII: The tongue was in the midline without any fasciculations or atrophy. Motor system: The tone was normal in all 4 extremities. Examination of muscle mass revealed no focal wasting. Examination of power revealed G 5/5 power in all muscle groups tested. Sensory examination: He had intact sensations to pinprick and light touch. He had bilaterally graphesthesia. Reflexes: 2+ and bilaterally symmetrical at the biceps, triceps, brachioradialis and knees. 0 at both ankles. The plantar responses were flexor. Coordination: He performed well on [id number] and rvtb-sw-cwsr testing. Stance: Deferred. Gait: Deferred. Impression/Recommendations Diagnostic Impression DIAGNOSTIC IMPRESSION: 1. Mr. Reji Au is a 79-year-old, right-handed, black gentleman, who has a relatively benign past history. He was brought to the hospital on 07/21/2019 after he had apparently fallen down and was on the floor of his apartment for 4 days. He himself has no recollection of what happened. Since he has been here he has been noted to have some gait problems. 2. He feels well today. He was in bed enjoying his lunch. He continues to have significant cognitive dysfunction. He denies any new problems. 3. On neurological examination, at this time, he is disoriented to the name of the hospital and date. He has significant problems with recent and remote memory, visuospatial function, higher cognitive function, and language. He also has significant bilateral frontal systems dysfunction. He has bilateral agraphesthesia. His strength is excellent in all 4 extremities but he is apractic. 4. Laboratory data revealed that he is anemic with a hemoglobin of 11.5 g. His latest BUN is 42 and latest creatinine is 2.3. When he came in his CK was 2257 and it has now normalized 241. He is folic acid deficient with a folic acid level of 7.5. His RPR is positive in a low titre of 1:1. The FTA-ABS is pending. 5. The MRI scan of the brain performed on 08/05/2019 revealed multiple acute infarcts in involving both cerebral hemispheres, basal ganglia, and the left cerebellum. In addition multiple old small infarcts scattered in the brain were also seen. 6. Thus far cardiac monitoring has revealed no arrhythmia. 7. The patient's history and neurological examination are most consistent with significant cognitive dysfunction and in addition stance and possibly gait apraxia. He also exhibits significant frontal systems dysfunction. This is related to shower of emboli to the brain acutely and in addition remote possibly embolic phenomena to the brain. Recommendations RECOMMENDATIONS: 1. Continue present management. 2. Transesophageal echocardiogram with bubble study should be performed to evaluate the patient for cardiogenic source of emboli. 3. Continue cardiac monitoring to exclude atrial fibrillation as a reason for a cardiogenic source of emboli. 4. Agree with ID work up as per Dr. Lion. 5. Continue physical and occupational therapy to mobilize patient. 6. Folic acid 1 mg daily for folate deficiency. 7. Observe closely. Beka Smith M.D., M.S.P.H. Neurologist & Clinical Neurophysiologist Beka Smith MD Aug 08, 2019 14:39
--- NOTE | 2019-08-08 15:14 | NUR ---
*-* INSURANCE *-* ALL AVAILABLE CLINICALS HAVE BEEN FAXED TO: [facility] OPAL:PR[employer]ETO P: [phone] F: [phone]
[2019-08-08 16:00] VITALS: BP 158/68
--- NOTE | 2019-08-08 17:20 | NUR ---
CASE MANAGEMENT:REVIEW 08/08/19 SI: ACUTE RHABDOMYOLYSIS STAPH BACTEREMIA. MULTIPLE SMALL ACUTE INFARCTS 96.6 81 20 158/68 97% ON RA H/H-9.7/30.2 BUN+49 CR+2.4 IS: FOLATE PO QD URECHOLINE PO TID HEPARIN SQ Q12 PROSCAR PO QD FLOMAX PO BID NORVASC PO BID HYDRALAZINE PO BID IVF@50/HR : TELEMETRY STATUS PLAN: DC MARQUEZ POST VOID RESIDUAL URINE CULTURE AMBULATED 15 FEET X2
--- NOTE | 2019-08-08 17:58 | NUR ---
NURSE NOTES:WOUND CARE NOTES: Pt's skin assessed with Primary Nurse in attendance. Sacrum is clean and dry. Non-tender when palpated.Moisture Barrier Paste applied and covered with Optifoam drsg. Both heels are dry ,firm and easily blanchable. All bony prominences assessed and no skin concerns noted. Recommendations: Apply Moisture Barrier Paste to sacrum. Cover with Optifoam drsg. Change every 3 days and prn. Apply Cavilon Skin Barrier to each heel. Cover each heel with Optifoam drsg. Change every 7 days and prn. Reposition at least every 2hours or as tolerated. Off-load heels with pillow.
--- NOTE | 2019-08-08 18:22 | Pulmonology Progress Note ---
Assessment/Plan Problems: (1) Rhabdomyolysis (2) JERMAINE (acute kidney injury) (3) Dehydration (4) Episode of generalized weakness (5) Weakness (6) Gait abnormality (7) Failure to thrive in adult (8) Hypertension, benign (9) Toxic metabolic encephalopathy (10) Bacteremia due to Staphylococcus (11) Positive RPR test (12) CVA (cerebral vascular accident) Assessment/Plan Assessment/Plan 1. Acute and chronic CVA, likely embolic 2. AMS, 2/2 above 3. Positive RPR, FTA-ABS pending 4. Dehydration/rhabdomyolysis/lactic acidosis - RESOLVED 5. Hyperproteinemia, possible myeloma 6. Hypertension - POORLY CONTROLLED 7. JERMAINE vs CKD, likely both 8. Obstructive uropathy 9. Generalized weakness 10. Anemia, FOBT neg PLAN: Tele F/u [facility] recs D/W neuro and cards, will hold off on AC until etiology of CVA determined F/U neuro recs and w/u F/U ID recs F/U renal recs and w/u ---> FC x 1 week, continue Finasteride, Flomax and Bethanachol mIVF per renal Will need an outpatient eval Needs age appropriate malignancy screening and primary care as an outpatient Monitor HH, FOBT neg, F/U UPEP BP control PT/OT DVT Px: Hep SQ Dispo planning to SNF once acute issues resolved Subjective Allergies: Coded Allergies: No Known Allergies (Unverified , 07/21/19) Subjective LVEF 60% [facility] pending FOBT neg No change in MS No [id number] Objective Last 24 Hour Vital Signs Date Time Temp Pulse Resp B/P (MAP) Pulse Ox O2 Delivery O2 Flow Rate FiO2 08/08/19 18:14 158/68 08/08/19 18:14 81 158/68 08/08/19 16:00 96.6 81 20 158/68 (98) 97 08/08/19 15:58 69 08/08/19 12:00 98.6 75 19 148/60 (89) 98 08/08/19 09:08 65 138/68 08/08/19 09:07 138/68 08/08/19 09:00 Room Air 08/08/19 08:00 96.7 65 18 138/68 (91) 98 08/08/19 04:27 67 08/08/19 04:25 97.7 70 19 147/76 (99) 98 08/08/19 00:34 73 08/08/19 00:00 97.7 76 18 139/72 (94) 97 08/07/19 21:01 Room Air 08/07/19 20:00 74 08/07/19 20:00 97.9 73 19 137/70 (92) 96 Intake and Output 08/07/19 08/08/19 19:00 07:00 Intake Total 140 ml 700 ml Output Total 8700 ml 1700 ml Balance -8560 ml -1000 ml Intake Oral 140 ml IV Total 700 ml Output Urine Total 8700 ml 1700 ml # Voids 3 General Appearance: no acute distress, cachetic HEENT: normocephalic, atraumatic, anicteric, mucous membranes moist Respiratory/Chest: chest wall non-tender, lungs clear, normal breath sounds, no respiratory distress, no accessory muscle use Cardiovascular: normal peripheral pulses, normal rate, regular rhythm Abdomen: normal bowel sounds, soft, non tender, no organomegaly, non distended , no mass Extremities: no cyanosis, no clubbing, no edema Microbiology Date/Time Source Procedure Growth Status 08/06/19 21:30 Blood Blood Culture - Preliminary NO GROWTH AFTER 24 HOURS Resulted 08/06/19 21:15 Blood Blood Culture - Preliminary NO GROWTH AFTER 24 HOURS Resulted Laboratory Tests 08/08/19 04:29: White Blood Count 6.2, Red Blood Count 3.24L, Hemoglobin 9.7L, Hematocrit 30.2L , Mean Corpuscular Volume 93, Mean Corpuscular Hemoglobin 29.9, Mean Corpuscular Hemoglobin Concent 32.1, Red Cell Distribution Width 12.2, Platelet Count 221, Mean Platelet Volume 7.4, Neutrophils (%) (Auto) 61.7, Lymphocytes (% ) (Auto) 18.9L, Monocytes (%) (Auto) 10.9H, Eosinophils (%) (Auto) 7.2H, Basophils (%) (Auto) 1.3, Sodium Level 141, Potassium Level 5.0, Chloride Level 107, Carbon Dioxide Level 18L, Anion Gap 16H, Blood Urea Nitrogen 49H, Creatinine 2.4H, Estimat Glomerular Filtration Rate , Glucose Level 75, Calcium Level 9.1, Total Creatine Kinase 114 Current Medications Medications (Trade) Dose Ordered Sig/Hanh Route PRN Reason Start Time Stop Time Status Last Admin Dose Admin Acetaminophen (Tylenol) 650 mg Q6H PRN ORAL Mild Pain/Temp > 100.5 08/06/19 23:45 09/05/19 23:44 Amlodipine Besylate (Norvasc) 10 mg BID ORAL 07/26/19 18:00 08/25/19 17:59 08/08/19 18:14 Bethanechol Chloride (Urecholine) 25 mg THREE TIMES A DAY ORAL 08/02/19 14:00 09/01/19 13:59 08/08/19 18:14 Bisacodyl (Dulcolax) 10 mg DAILYPRN PRN RECTAL Constipation 08/04/19 19:00 09/03/19 18:59 08/06/19 06:40 Clonidine HCl (Catapres TTS-3) 1 patch QWEEK TDERMAL 07/22/19 12:00 08/21/19 11:59 08/05/19 14:59 Clonidine HCl (Catapres Tab) 0.1 mg Q4H PRN ORAL sbp>170 08/06/19 18:15 09/05/19 18:14 Finasteride (Proscar) 5 mg DAILY ORAL 07/28/19 09:00 08/27/19 08:59 08/08/19 09:08 Folic Acid (Folate) 1 mg DAILY ORAL 08/06/19 09:00 09/05/19 08:59 08/08/19 09:08 Heparin Sodium (Porcine) (Heparin 5000 units/ml) 5,000 units EVERY 12 HOURS SUBQ 08/01/19 21:00 08/31/19 20:59 08/08/19 09:09 Hydralazine HCl (Apresoline) 100 mg BID ORAL 07/26/19 18:00 08/25/19 17:59 08/08/19 18:14 Quetiapine Fumarate (SEROqueL) 25 mg Q6H PRN ORAL For Anxiety 07/22/19 12:45 08/21/19 12:44 Quetiapine Fumarate (SEROqueL) 25 mg QHS ORAL 07/21/19 21:00 08/20/19 20:59 08/07/19 21:00 Tamsulosin HCl (Flomax) 0.4 mg BID ORAL 07/27/19 18:00 08/26/19 17:59 08/08/19 18:14 Shiraz Cervantes MD Aug 08, 2019 18:22
--- NOTE | 2019-08-08 19:20 | NUR ---
NURSE NOTES: Received report from ARELY Buitrago. Patient is awake, lying in semi olsen's; resting comfortably. A/Ox3. Denies pain at this time. No signs of acute distress noted. Checked IV site and flushed. No erythema, bleeding or infiltration noted. With dickson catheter draining well to gravity. Bed at lowest position, brakes on, siderailsx3. Call light within reach. Will continue to monitor.
[2019-08-08 20:00] VITALS: BP 152/66
--- NOTE | 2019-08-08 20:02 | NUR ---
folly cath inserted as ordered. patient tolerated well will continue to monitor and indorse to pm ARELY Hodges
--- NOTE | 2019-08-08 22:00 | Consultation ---
DATE OF CONSULTATION: 08/08/2019 CONSULTING PHYSICIAN: Kali Serrano M.D. REFERRING PHYSICIAN: Shiraz Cervantes M.D. REASON FOR CONSULTATION: For evaluation of urinary retention. HISTORY OF PRESENT ILLNESS: This is a 79-year-old gentleman. He was originally admitted to the hospital when he was found down. He has been in the hospital for an extended period about 2-1/2 weeks. He has had some fluctuation in his renal function. He has had acute on chronic renal insufficiency. He was noted to have urinary retention. He had a Walsh catheter, which was removed, was not able to urinate. He does have a history of BPH. Urology evaluation is requested. Most of the history was obtained from the chart as the patient is a poor historian. PAST MEDICAL HISTORY: Significant for above. Also history of hypertension. PAST SURGICAL HISTORY: Unknown. MEDICATIONS: Current medication list in the hospital was reviewed. From urologic standpoint, he is currently on Flomax twice a day, finasteride 5 mg, and Benicar 25 mg daily. ALLERGIES: No known drug allergies. SOCIAL HISTORY: Apparently, he was living at home by himself before. REVIEW OF SYSTEMS: Difficult to obtain. PHYSICAL EXAMINATION: GENERAL: Elderly male, in no acute distress. VITAL SIGNS: Temperature is 96.6, blood pressure is 158/68. HEENT: Normocephalic. NECK: Supple. ABDOMEN: Soft. Walsh is in place now. Urine is yellow. LABORATORY DATA: His last UA showed 0 to 2 rbc's, 1+ blood. His BUN is 49 and creatinine 2.4, I believe his baseline creatinine is close to 1.4, potassium 5.0. White count is 6.2, hemoglobin 9.7. His last urine culture from 08/01/2019 was negative. His latest blood cultures are negative at 24 hours. DIAGNOSTIC IMAGING STUDIES: The patient had a renal ultrasound, which did not show hydronephrosis. IMPRESSION: 1. Urinary retention. 2. BPH history. 3. Probable neurogenic bladder. 4. Renal insufficiency acute on chronic. 5. Hematuria. PLAN AND DISCUSSION: Again as noted above, the patient had urinary retention. I did tell the nursing staff to do a Walsh catheter indwelling as opposed to in-and-out to minimize trauma. He is already on maximal Flomax b.i.d. He is on finasteride. He is on bethanechol 25 mg t.i.d. and I will increase this to 50 mg t.i.d. He is on Seroquel, which will cause retention and we can try to minimize that if possible. At this time, we will recommend to keep the Walsh catheter indwelling until his renal function is stabilized after which we can give him a voiding trial once he is a bit more energetic and ambulatory. He can have a cystoscopy electively later for evaluation of urinary tract. I will follow the patient and any other recommendations will be forthcoming. Thank you, Dr. Cervantes, for asking me to see this patient in consultation. Kali Srerano M.D. DR: CRISTOFER JOB#: [id number] CC: Adrianne Bishop M.D. ; FAX#: [phone] Adrianne Wilkerson M.D.; FAX#: [phone]
[2019-08-09] VITALS: BP_SYST 139; BP_SYST 90; BP_DIAS 66; BP_DIAS 68
--- NOTE | 2019-08-09 | Psych Consult Progress Note ---
Psychiatry Progress Note Psychiatry Progress Note Subjective he is more confused. The patient's mental condition is unchanged since previous encounter. He is weak. MENTAL STATUS EXAMINATION: Alert and oriented times self and place. Mood is depressed. Affect is constricted, congruent with mood. Thought process is concrete. Thought content, no suicidal or homicidal ideation. ASSESSMENT: 1. Acute toxic encephalopathy. 2. Depression. PLAN: 1. Continue current psychotropic medication. 2. Provide the patient with reality orientation and supportive therapy. Medications Current Medications Medications (Trade) Dose Ordered Sig/Hanh Route PRN Reason Start Time Stop Time Status Last Admin Dose Admin Acetaminophen (Tylenol) 650 mg Q6H PRN ORAL Mild Pain/Temp > 100.5 08/06/19 23:45 09/05/19 23:44 08/08/19 20:37 Amlodipine Besylate (Norvasc) 10 mg BID ORAL 07/26/19 18:00 08/25/19 17:59 08/08/19 18:14 Bethanechol Chloride (Urecholine) 50 mg THREE TIMES A DAY ORAL 08/09/19 09:00 09/01/19 13:59 Bisacodyl (Dulcolax) 10 mg DAILYPRN PRN RECTAL Constipation 08/04/19 19:00 09/03/19 18:59 08/06/19 06:40 Clonidine HCl (Catapres TTS-3) 1 patch QWEEK TDERMAL 07/22/19 12:00 08/21/19 11:59 08/05/19 14:59 Clonidine HCl (Catapres Tab) 0.1 mg Q4H PRN ORAL sbp>170 08/06/19 18:15 09/05/19 18:14 Finasteride (Proscar) 5 mg DAILY ORAL 07/28/19 09:00 08/27/19 08:59 08/08/19 09:08 Folic Acid (Folate) 1 mg DAILY ORAL 08/06/19 09:00 09/05/19 08:59 08/08/19 09:08 Heparin Sodium (Porcine) (Heparin 5000 units/ml) 5,000 units EVERY 12 HOURS SUBQ 08/01/19 21:00 08/31/19 20:59 08/08/19 20:30 Hydralazine HCl (Apresoline) 100 mg BID ORAL 07/26/19 18:00 08/25/19 17:59 08/08/19 18:14 Quetiapine Fumarate (SEROqueL) 25 mg Q6H PRN ORAL For Anxiety 07/22/19 12:45 08/21/19 12:44 Quetiapine Fumarate (SEROqueL) 25 mg QHS ORAL 07/21/19 21:00 08/20/19 20:59 08/08/19 20:28 Tamsulosin HCl (Flomax) 0.4 mg BID ORAL 07/27/19 18:00 08/26/19 17:59 08/08/19 18:14 Allergies: Coded Allergies: No Known Allergies (Unverified , 07/21/19) Objective Data Height (Feet): 5 Height (Inches): 5.00 Weight (Pounds): 176 Nury Mandel MD Aug 09, 2019 00:00
--- NOTE | 2019-08-09 01:11 | NUR ---
NURSE NOTES: Resting throughout the night. No significant change of condition noted. Will continue to monitor.
[2019-08-09 04:00] VITALS: BP 140/54
--- NOTE | 2019-08-09 07:05 | NUR ---
HAND-OFF: Report given to ARELY Coker. Plan of care endorsed.
[2019-08-09 08:01] VITALS: BP 138/64
[2019-08-09 08:22] LABS: ANION GAP 12 mmol/L (5-15); BLOOD UREA NITROGEN 54 mg/dL (7-18); CALCIUM 9.1 MG/DL (8.5-10.1); CARBON DIOXIDE 22 MMOL/L (21-32); CHLORIDE 107 MMOL/L (98-107); CREATININE 2.4 MG/DL (0.55-1.30); POTASSIUM 4.4 MMOL/L (3.5-5.1); SODIUM 141 MMOL/L (136-145)
--- NOTE | 2019-08-09 08:48 | Urology Progress Note ---
Assessment/Plan Assessment/Plan: 1. Urinary retention. 2. BPH history. 3. Probable neurogenic bladder. 4. Renal insufficiency acute on chronic. 5. Hematuria. dickson indwelling for now hand irrigated and do PRN cont with flomax, proscar urecholine dose increased minimize seroquel voiding trial later cysto later Subjective Allergies: Coded Allergies: No Known Allergies (Unverified , 07/21/19) Subjective all noted, no new complaints Objective Last 24 Hour Vital Signs Date Time Temp Pulse Resp B/P (MAP) Pulse Ox O2 Delivery O2 Flow Rate FiO2 08/09/19 08:01 96.8 69 22 138/64 (88) 95 08/09/19 04:00 97.5 72 18 140/54 (82) 96 08/09/19 04:00 78 08/09/19 00:00 81 08/09/19 00:00 97.3 77 18 139/66 (90) 98 08/08/19 21:07 97.8 08/08/19 21:00 Room Air 08/08/19 20:00 97.0 90 16 152/66 (94) 96 08/08/19 20:00 86 08/08/19 18:14 158/68 08/08/19 18:14 81 158/68 08/08/19 16:00 75 08/08/19 16:00 96.6 81 20 158/68 (98) 97 08/08/19 15:58 69 08/08/19 12:00 98.6 75 19 148/60 (89) 98 08/08/19 09:08 65 138/68 08/08/19 09:07 138/68 08/08/19 09:00 Room Air Intake and Output 08/08/19 08/09/19 19:00 07:00 Intake Total 140 ml Balance 140 ml Intake Oral 140 ml Microbiology Date/Time Source Procedure Growth Status 08/06/19 21:30 Blood Blood Culture - Preliminary NO GROWTH AFTER 48 HOURS Resulted 07/21/19 17:35 Nasal Nares - Final Complete 07/21/19 17:35 Nasal Nares - Final Complete 08/01/19 15:54 Indwelling Cath Urine Culture - Final NO GROWTH AFTER 48 HOURS Complete Current Medications Medications (Trade) Dose Ordered Sig/Hanh Route PRN Reason Start Time Stop Time Status Last Admin Dose Admin Acetaminophen (Tylenol) 650 mg Q6H PRN ORAL Mild Pain/Temp > 100.5 08/06/19 23:45 09/05/19 23:44 08/08/19 20:37 Amlodipine Besylate (Norvasc) 10 mg BID ORAL 07/26/19 18:00 08/25/19 17:59 08/08/19 18:14 Bethanechol Chloride (Urecholine) 50 mg THREE TIMES A DAY ORAL 08/09/19 09:00 09/01/19 13:59 Bisacodyl (Dulcolax) 10 mg DAILYPRN PRN RECTAL Constipation 08/04/19 19:00 09/03/19 18:59 08/06/19 06:40 Clonidine HCl (Catapres TTS-3) 1 patch QWEEK TDERMAL 07/22/19 12:00 08/21/19 11:59 08/05/19 14:59 Clonidine HCl (Catapres Tab) 0.1 mg Q4H PRN ORAL sbp>170 08/06/19 18:15 09/05/19 18:14 Finasteride (Proscar) 5 mg DAILY ORAL 07/28/19 09:00 08/27/19 08:59 08/08/19 09:08 Folic Acid (Folate) 1 mg DAILY ORAL 08/06/19 09:00 09/05/19 08:59 08/08/19 09:08 Heparin Sodium (Porcine) (Heparin 5000 units/ml) 5,000 units EVERY 12 HOURS SUBQ 08/01/19 21:00 08/31/19 20:59 08/08/19 20:30 Hydralazine HCl (Apresoline) 100 mg BID ORAL 07/26/19 18:00 08/25/19 17:59 08/08/19 18:14 Quetiapine Fumarate (SEROqueL) 25 mg Q6H PRN ORAL For Anxiety 07/22/19 12:45 08/21/19 12:44 Quetiapine Fumarate (SEROqueL) 25 mg QHS ORAL 07/21/19 21:00 08/20/19 20:59 08/08/19 20:28 Tamsulosin HCl (Flomax) 0.4 mg BID ORAL 07/27/19 18:00 08/26/19 17:59 08/08/19 18:14 Laboratory Tests 08/09/19 07:11: Sodium Level 141, Potassium Level 4.4, Chloride Level 107, Carbon Dioxide Level 22, Anion Gap 12, Blood Urea Nitrogen 54H, Creatinine 2.4H, Estimat Glomerular Filtration Rate , Glucose Level 113H, Calcium Level 9.1 Height (Feet): 5 Height (Inches): 5.00 Weight (Pounds): 176 Objective exam stable dickson indwelling BamshKali renee MD Aug 09, 2019 08:48
[2019-08-09] MEDS: Heparin 5000 units/ml inj SUBQ SCH ×2 (09:00→21:46)
[2019-08-09] MEDS: Bethanechol 25mg Tab ORAL SCH ×3 (09:28→18:00)
[2019-08-09] MEDS: Tamsulosin 0.4mg cap ORAL SCH ×2 (09:29→18:00)
[2019-08-09] MEDS: HydrALAZINE 50mg tab ORAL SCH ×2 (09:29→18:00)
--- NOTE | 2019-08-09 10:11 | Nephrology Progress Note ---
Assessment/Plan Problem List: (1) Hypertension, benign (2) Toxic metabolic encephalopathy (3) Gait abnormality (4) Rhabdomyolysis (5) JERMAINE (acute kidney injury) (6) Dehydration (7) Episode of generalized weakness (8) Bacteremia due to Staphylococcus (9) CKD (chronic kidney disease) stage 3, GFR 30-59 ml/min (10) Urinary retention Plan f/u lab, , mobilize, try to get coop to po meds lab trend better until 1 rise in creat , ckd3, renal US, mobilize, dickson placed as 800 ml residual , would keep dickson for one week, flomax and finasteride started, voiding trial so far bladder residual 350 08/02 then voided check again later, add urecholine, dicksno was replaced renal function stable--recheck lab as prior afib , now nsr, bun/cr higher 08/07 I will increase iv rate, repeat 08/08 reviewed, can observe K, voiding trial again failed and dickson placed 08/08 Subjective ROS Limited/Unobtainable: Yes Objective Objective Last 24 Hour Vital Signs Date Time Temp Pulse Resp B/P (MAP) Pulse Ox O2 Delivery O2 Flow Rate FiO2 08/09/19 09:29 138/64 08/09/19 09:29 69 138/64 08/09/19 08:01 96.8 69 22 138/64 (88) 95 08/09/19 04:00 97.5 72 18 140/54 (82) 96 08/09/19 04:00 78 08/09/19 00:00 81 08/09/19 00:00 97.3 77 18 139/66 (90) 98 08/08/19 21:07 97.8 08/08/19 21:00 Room Air 08/08/19 20:00 97.0 90 16 152/66 (94) 96 08/08/19 20:00 86 08/08/19 18:14 158/68 08/08/19 18:14 81 158/68 08/08/19 16:00 75 08/08/19 16:00 96.6 81 20 158/68 (98) 97 08/08/19 15:58 69 08/08/19 12:00 98.6 75 19 148/60 (89) 98 Intake and Output 08/08/19 08/09/19 19:00 07:00 Intake Total 140 ml Balance 140 ml Intake Oral 140 ml Laboratory Tests 08/09/19 07:11: Sodium Level 141, Potassium Level 4.4, Chloride Level 107, Carbon Dioxide Level 22, Anion Gap 12, Blood Urea Nitrogen 54H, Creatinine 2.4H, Estimat Glomerular Filtration Rate , Glucose Level 113H, Calcium Level 9.1 Height (Feet): 5 Height (Inches): 5.00 Weight (Pounds): 176 General Appearance: no apparent distress EENT: normal ENT inspection Neck: normal alignment Cardiovascular: regular rhythm Respiratory/Chest: lungs clear Abdomen: non tender Extremities: no edema Neurologic: motor weakness Arthur Bethea MD Aug 09, 2019 10:11
[2019-08-09 11:40] VITALS: BP 149/72
--- NOTE | 2019-08-09 13:39 | Infectious Diseases Prog Note ---
Assessment/Plan Problems: (1) Positive RPR test Assessment & Plan: with low titer suspect either previous infection which he was treated for OR false positive result , await FTA-ABS test to confirm , no indication to treat at this point . screening for HIV is negative . will continue to monitor clinically (2) CVA (cerebral vascular accident) Assessment & Plan: with multiple vascular emboli, rule out cardiogenic source, thrombotic VS [place] related vegetations. blood culture x 2 is negative , with negative JOHN, and RF screening , recommend LESA to better evaluate his valves . doesn't meet criteria for infectious endocarditis (3) CKD (chronic kidney disease) stage 3, GFR 30-59 ml/min Assessment & Plan: avoid nephrotoxics, close monitoring of renal function, follow up with nephrology (4) Failure to thrive in adult Assessment & Plan: etiology? dementia possibly, screening for HIV is negative , may need placement (5) Gait abnormality Assessment & Plan: PT/OT eval and possible placement Subjective Constitutional: Reports: no symptoms HEENT: Reports: no symptoms Respiratory: Reports: no symptoms Breasts: Reports: no symptoms Cardiovascular: Reports: no symptoms Gastrointestinal/Abdominal: Reports: no symptoms Genitourinary: Reports: no symptoms Neurologic: Reports: no symptoms Psychiatric: Reports: no symptoms Skin: Reports: no symptoms Endocrine: Reports: no symptoms Hematologic: Reports: no symptoms Musculoskeletal: Reports: no symptoms Allergies: Coded Allergies: No Known Allergies (Unverified , 07/21/19) Subjective He was resting in bed, sleeping, responded well to verbal commands , comfortable, and oriented x 3 , no headache or blurry vision no cough or SOB, has unsteady gait Objective Vital Signs Last 24 Hour Vital Signs Date Time Temp Pulse Resp B/P (MAP) Pulse Ox O2 Delivery O2 Flow Rate FiO2 08/09/19 11:48 68 08/09/19 11:40 96.3 70 18 149/72 (97) 95 08/09/19 09:29 138/64 08/09/19 09:29 69 138/64 08/09/19 09:05 Room Air 08/09/19 08:01 96.8 69 22 138/64 (88) 95 08/09/19 07:41 66 08/09/19 04:00 97.5 72 18 140/54 (82) 96 08/09/19 04:00 78 08/09/19 00:00 81 08/09/19 00:00 97.3 77 18 139/66 (90) 98 08/08/19 21:07 97.8 08/08/19 21:00 Room Air 08/08/19 20:00 97.0 90 16 152/66 (94) 96 08/08/19 20:00 86 08/08/19 18:14 158/68 08/08/19 18:14 81 158/68 08/08/19 16:00 75 08/08/19 16:00 96.6 81 20 158/68 (98) 97 08/08/19 15:58 69 Height (Feet): 5 Height (Inches): 5.00 Weight (Pounds): 176 General Appearance: WD/WN, no acute distress HEENT: normocephalic, atraumatic, anicteric, mucous membranes moist, PERRL, EOMI, pharynx normal, supple, no JVD Respiratory/Chest: chest wall non-tender, lungs clear, normal breath sounds, no respiratory distress, no accessory muscle use Cardiovascular: normal peripheral pulses, normal rate, regular rhythm, no gallop/murmur, no JVD Abdomen: normal bowel sounds, soft, non tender, no organomegaly, non distended , no mass, no scars Genitourinary: normal external genitalia Extremities: no cyanosis, no clubbing Skin: no rash, no lesions, no ulcers 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, alert, oriented x 3, responsive Lymphatic: no neck adenopathy, no groin adenopathy Musculoskeletal: normal muscle bulk, no effusion Microbiology Date/Time Source Procedure Growth Status 08/06/19 21:30 Blood Blood Culture - Preliminary NO GROWTH AFTER 48 HOURS Resulted 08/06/19 21:15 Blood Blood Culture - Preliminary NO GROWTH AFTER 48 HOURS Resulted 08/08/19 09:30 Indwelling Cath Urine Culture - Preliminary NO GROWTH Resulted Laboratory Tests Test 08/09/19 07:11 Sodium Level 141 MMOL/L (136-145) Potassium Level 4.4 MMOL/L (3.5-5.1) Chloride Level 107 MMOL/L (98-107) Carbon Dioxide Level 22 MMOL/L (21-32) Anion Gap 12 mmol/L (5-15) Blood Urea Nitrogen 54 mg/dL (7-18) H Creatinine 2.4 MG/DL (0.55-1.30) H Estimat Glomerular Filtration Rate mL/min (>60) Glucose Level 113 MG/DL (74-106) H Calcium Level 9.1 MG/DL (8.5-10.1) Current Medications Medications (Trade) Dose Ordered Sig/Hanh Route PRN Reason Start Time Stop Time Status Last Admin Dose Admin Acetaminophen (Tylenol) 650 mg Q6H PRN ORAL Mild Pain/Temp > 100.5 08/06/19 23:45 09/05/19 23:44 08/08/19 20:37 Amlodipine Besylate (Norvasc) 10 mg BID ORAL 07/26/19 18:00 08/25/19 17:59 08/09/19 09:29 Bethanechol Chloride (Urecholine) 50 mg THREE TIMES A DAY ORAL 08/09/19 09:00 09/01/19 13:59 08/09/19 09:28 Bisacodyl (Dulcolax) 10 mg DAILYPRN PRN RECTAL Constipation 08/04/19 19:00 09/03/19 18:59 08/06/19 06:40 Clonidine HCl (Catapres TTS-3) 1 patch QWEEK TDERMAL 07/22/19 12:00 08/21/19 11:59 08/05/19 14:59 Clonidine HCl (Catapres Tab) 0.1 mg Q4H PRN ORAL sbp>170 08/06/19 18:15 09/05/19 18:14 Finasteride (Proscar) 5 mg DAILY ORAL 07/28/19 09:00 08/27/19 08:59 08/09/19 09:29 Folic Acid (Folate) 1 mg DAILY ORAL 08/06/19 09:00 09/05/19 08:59 08/09/19 09:29 Heparin Sodium (Porcine) (Heparin 5000 units/ml) 5,000 units EVERY 12 HOURS SUBQ 08/01/19 21:00 08/31/19 20:59 08/08/19 20:30 Hydralazine HCl (Apresoline) 100 mg BID ORAL 07/26/19 18:00 08/25/19 17:59 08/09/19 09:29 Quetiapine Fumarate (SEROqueL) 25 mg Q6H PRN ORAL For Anxiety 07/22/19 12:45 08/21/19 12:44 Quetiapine Fumarate (SEROqueL) 25 mg QHS ORAL 07/21/19 21:00 08/20/19 20:59 08/08/19 20:28 Tamsulosin HCl (Flomax) 0.4 mg BID ORAL 07/27/19 18:00 08/26/19 17:59 08/09/19 09:29 Anastasia Lion M.D. Aug 09, 2019 13:38
--- NOTE | 2019-08-09 13:48 | Neurology Progress Note ---
Interim History Interim History Interim History Mr. Reji Au is a 79-year-old, right-handed, black gentleman, who has a relatively benign past history. He was brought to the hospital on 07/21/2019 after he had apparently fallen down and was on the floor of his apartment for 4 days. He himself has no recollection of what happened. Since he has been here he has been noted to have some gait problems. He is very sleepy today. He continues to feel well. He has a poor appetite today and has not eaten his lunch. He continues to have significant cognitive dysfunction. He denies any new problems. He specifically denies any weakness on one side or the other, numbness on one side or the other, problems with speech, problems with language, or problems with his vision. Review of Systems Neuro Review of Systems Benign. Objective Physical Exam Last Vital Signs Date Time Temp Pulse Resp B/P (MAP) Pulse Ox O2 Delivery O2 Flow Rate FiO2 08/09/19 11:48 68 08/09/19 11:40 96.3 18 149/72 (97) 95 08/09/19 09:05 Room Air Laboratory Tests Test 08/09/19 07:11 Sodium Level 141 MMOL/L (136-145) Potassium Level 4.4 MMOL/L (3.5-5.1) Chloride Level 107 MMOL/L (98-107) Carbon Dioxide Level 22 MMOL/L (21-32) Anion Gap 12 mmol/L (5-15) Blood Urea Nitrogen 54 mg/dL (7-18) H Creatinine 2.4 MG/DL (0.55-1.30) H Estimat Glomerular Filtration Rate mL/min (>60) Glucose Level 113 MG/DL (74-106) H Calcium Level 9.1 MG/DL (8.5-10.1) Neurologic Exam Objective PHYSICAL EXAMINATION: GENERAL: He is a well-developed, relatively well-nourished, Black gentleman, lying in bed in no acute distress. HEAD: Normocephalic and atraumatic. NECK: No neck rigidity was observed. EENT examination: Benign. NEUROLOGICAL EXAMINATION: Mental status examination: He was drowsy but could be aroused easily. He was oriented to self, July and hospital only. He did not know the name of the hospital or date or year. He was able to recall 3/3 words immediately but could only remember 1/3 after 1 minute and 3 minutes. He was able to remember presidents Trump and Obama only with hints. His mathematical skills were impaired. His visual-spatial function was also impaired. Frontal systems tasks: He was unable to perform Luria's hand sequences. Speech: He had no dysarthria. Language: He had an anomia for low-frequency words. Cranial nerve examination: II: The visual kang were intact on confrontation testing. III, IV & : The external ocular movements were full. The pupils were 3 mm in diameter and reactive sluggishly to light. V: He had normal facial sensations, and the temporales, masseters, and pterygoids functioned normally. VII: He had normal facial expressions and no facial asymmetry. VIII: He was able to hear and had no nystagmus. IX: The palate moved symmetrically on phonation. X: He had no hoarseness of voice. XI: The sternocleidomastoids and trapezii functioned well. XII: The tongue was in the midline without any fasciculations or atrophy. Motor system: The tone was normal in all 4 extremities. Examination of muscle mass revealed no focal wasting. Examination of power revealed G 5/5 power in all muscle groups tested. Sensory examination: He had intact sensations to pinprick and light touch. He had bilaterally graphesthesia. Reflexes: 2+ and bilaterally symmetrical at the biceps, triceps, brachioradialis and knees. 0 at both ankles. The plantar responses were flexor. Coordination: He performed well on [id number] testing. Stance: Deferred. Gait: Deferred. Impression/Recommendations Diagnostic Impression DIAGNOSTIC IMPRESSION: 1. Mr. Reji Au is a 79-year-old, right-handed, black gentleman, who has a relatively benign past history. He was brought to the hospital on 07/21/2019 after he had apparently fallen down and was on the floor of his apartment for 4 days. He himself has no recollection of what happened. Since he has been here he has been noted to have some gait problems. 2. He is very sleepy today. He continues to feel well. He has a poor appetite today and has not eaten his lunch. He continues to have significant cognitive dysfunction. He denies any new problems. 3. On neurological examination, at this time, he is disoriented to the name of the hospital, date and year. He has significant problems with recent and remote memory, visuospatial function, higher cognitive function, and language. He also has significant bilateral frontal systems dysfunction. He has bilateral agraphesthesia. His strength is excellent in all 4 extremities but he is apractic. 4. Laboratory data on my initial evaluation revealed that he was anemic with a hemoglobin of 11.5 G. His latest BUN was 42 and latest creatinine is 2.3. When he came in his CK was 2257 and it had normalized to 241. He was folic acid deficient with a folic acid level of 7.5. His RPR was positive in a low titre of 1:1. The FTA-ABS is pending. 5. The MRI scan of the brain performed on 08/05/2019 revealed multiple acute infarcts involving both cerebral hemispheres, basal ganglia, and the left cerebellum. In addition multiple old small infarcts scattered in the brain were also seen. 6. Thus far cardiac monitoring has revealed no arrhythmia. 7. The patient's history and neurological examination are most consistent with significant cognitive dysfunction and in addition stance and possibly gait apraxia. He also exhibits significant frontal systems dysfunction. This is related to shower of emboli to the brain acutely and in addition remote possibly embolic phenomena to the brain. Recommendations RECOMMENDATIONS: 1. Continue present management. 2. Transesophageal echocardiogram with bubble study should be performed to evaluate the patient for cardiogenic source of emboli. 3. Continue cardiac monitoring to exclude atrial fibrillation as a reason for a cardiogenic source of emboli. 4. Agree with ID work up as per Dr. Lion. 5. Continue physical and occupational therapy to mobilize patient. 6. Folic acid 1 mg daily for folate deficiency. 7. Observe closely. eBka Smith M.D., M.S.P.H. Neurologist & Clinical Neurophysiologist Beka Smith MD Aug 09, 2019 13:48
--- NOTE | 2019-08-09 14:54 | Cardiac Electrophysiology PN ---
Assessment/Plan Assessment/Plan 1. 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 Echo EF 60%. LESA pending stabilization. Hold off on anticoagulation at this time in view of acute stroke to prevent hemorrhagic conversion until cleared by Neurology.Remained in SR on tele. 2. Hypertension. Continue Norvasc 10 mg b.i.d., hydralazine 100 mg b.i.d. as well as clonidine patch weekly and p.r.n. clonidine 3. Benign prostatic hypertrophy on Flomax and Proscar. 4. Dementia, on Seroquel per Dr. Mandel. 5. Acute rhabdomyolysis. 6. Staph bacteremia.On Abx 7. Stage 3 chronic kidney disease. DW RN Subjective Subjective No events. In SR confused. Objective Last 24 Hour Vital Signs Date Time Temp Pulse Resp B/P (MAP) Pulse Ox O2 Delivery O2 Flow Rate FiO2 08/09/19 11:48 68 08/09/19 11:40 96.3 70 18 149/72 (97) 95 08/09/19 09:29 138/64 08/09/19 09:29 69 138/64 08/09/19 09:05 Room Air 08/09/19 08:01 96.8 69 22 138/64 (88) 95 08/09/19 07:41 66 08/09/19 04:00 97.5 72 18 140/54 (82) 96 08/09/19 04:00 78 08/09/19 00:00 81 08/09/19 00:00 97.3 77 18 139/66 (90) 98 08/08/19 21:07 97.8 08/08/19 21:00 Room Air 08/08/19 20:00 97.0 90 16 152/66 (94) 96 08/08/19 20:00 86 08/08/19 18:14 158/68 08/08/19 18:14 81 158/68 08/08/19 16:00 75 08/08/19 16:00 96.6 81 20 158/68 (98) 97 08/08/19 15:58 69 Intake and Output 08/08/19 08/09/19 19:00 07:00 Intake Total 140 ml Balance 140 ml Intake Oral 140 ml Laboratory Tests Test 08/09/19 07:11 Sodium Level 141 MMOL/L (136-145) Potassium Level 4.4 MMOL/L (3.5-5.1) Chloride Level 107 MMOL/L (98-107) Carbon Dioxide Level 22 MMOL/L (21-32) Anion Gap 12 mmol/L (5-15) Blood Urea Nitrogen 54 mg/dL (7-18) H Creatinine 2.4 MG/DL (0.55-1.30) H Estimat Glomerular Filtration Rate mL/min (>60) Glucose Level 113 MG/DL (74-106) H Calcium Level 9.1 MG/DL (8.5-10.1) Microbiology Date/Time Source Procedure Growth Status 08/06/19 21:30 Blood Blood Culture - Preliminary NO GROWTH AFTER 48 HOURS Resulted 08/06/19 21:15 Blood Blood Culture - Preliminary NO GROWTH AFTER 48 HOURS Resulted 08/08/19 09:30 Indwelling Cath Urine Culture - Preliminary NO GROWTH Resulted Objective HEAD AND NECK: No JVD. LUNGS: Clear. CARDIOVASCULAR: Regular S1 and S2 with no gallop or murmur. ABDOMEN: Soft and nontender. EXTREMITIES: No pitting edema. Lance Nichols MD Aug 09, 2019 14:53
--- NOTE | 2019-08-09 15:25 | NUR ---
P.T. NOTES ADDENDUM S/P: APPROACHED PATIENT'S ROOM IN PM. PATIENT FOUND LYING IN BED IN A SEMI-GASCA'S POSITION. U/A TO WAKE-PATIENT UP TODAY. PATIENT IN DEEP SLEEP. CHARGE NURSE STATED, PATIENT IN NORMAL SINUS RHYTHM. AND AWARE OF PATIENT'S STATUS. WILL F/U NEXT TX. TIME AND CONT W/P.T. PLAN. RSABADO.
[2019-08-09 16:00] VITALS: BP 153/67
--- NOTE | 2019-08-09 19:17 | NUR ---
HAND-OFF: Report given to Regina JIMENEZ.
[2019-08-09 20:00] VITALS: BP 145/66
--- NOTE | 2019-08-09 21:05 | Pulmonology Progress Note ---
Assessment/Plan Assessment/Plan Assessment/Plan 1. Acute and chronic CVA, likely embolic 2. AMS, 2/2 above 3. Positive RPR, FTA-ABS pending 4. Dehydration/rhabdomyolysis/lactic acidosis - RESOLVED 5. Hyperproteinemia, possible myeloma 6. Hypertension - POORLY CONTROLLED 7. JERMAINE vs CKD, likely both 8. Obstructive uropathy 9. Generalized weakness 10. Anemia, FOBT neg pulmonar stable Tele F/u LESA D/W neuro and cards, will hold off on AC until etiology of CVA determined F/U neuro recs and w/u F/U ID recs F/U renal recs and w/u ---> FC x 1 week, continue Finasteride, Flomax and Bethanachol mIVF per renal Will need an outpatient eval Needs age appropriate malignancy screening and primary care as an outpatient Monitor HH, FOBT neg, F/U UPEP BP control PT/OT DVT Px: Hep SQ Dispo planning to SNF once acute issues resolved Subjective ROS Limited/Unobtainable: Yes Allergies: Coded Allergies: No Known Allergies (Unverified , 07/21/19) Subjective sleeping this evening no distress no bleeding no nv no cp reported Objective Last 24 Hour Vital Signs Date Time Temp Pulse Resp B/P (MAP) Pulse Ox O2 Delivery O2 Flow Rate FiO2 08/09/19 18:00 153/67 08/09/19 18:00 79 153/67 08/09/19 16:00 98.1 79 20 153/67 (95) 97 08/09/19 15:56 70 08/09/19 11:48 68 08/09/19 11:40 96.3 70 18 149/72 (97) 95 08/09/19 09:29 138/64 08/09/19 09:29 69 138/64 08/09/19 09:05 Room Air 08/09/19 08:01 96.8 69 22 138/64 (88) 95 08/09/19 07:41 66 08/09/19 04:00 97.5 72 18 140/54 (82) 96 08/09/19 04:00 78 08/09/19 00:00 81 08/09/19 00:00 97.3 77 18 139/66 (90) 98 08/08/19 21:07 97.8 Intake and Output 08/08/19 08/09/19 19:00 07:00 Intake Total 140 ml Balance 140 ml Intake Oral 140 ml General Appearance: WD/WN Respiratory/Chest: rhonchi Cardiovascular: normal rate, regular rhythm Abdomen: normal bowel sounds, soft, non tender, no organomegaly Genitourinary: normal external genitalia Skin: no lesions Neurologic/Psychiatric: disoriented Microbiology Date/Time Source Procedure Growth Status 08/06/19 21:30 Blood Blood Culture - Preliminary NO GROWTH AFTER 48 HOURS Resulted 08/06/19 21:15 Blood Blood Culture - Preliminary NO GROWTH AFTER 48 HOURS Resulted 08/08/19 09:30 Indwelling Cath Urine Culture - Preliminary NO GROWTH Resulted Laboratory Tests 08/09/19 07:11: Sodium Level 141, Potassium Level 4.4, Chloride Level 107, Carbon Dioxide Level 22, Anion Gap 12, Blood Urea Nitrogen 54H, Creatinine 2.4H, Estimat Glomerular Filtration Rate , Glucose Level 113H, Calcium Level 9.1 Current Medications Medications (Trade) Dose Ordered Sig/Hanh Route PRN Reason Start Time Stop Time Status Last Admin Dose Admin Acetaminophen (Tylenol) 650 mg Q6H PRN ORAL Mild Pain/Temp > 100.5 08/06/19 23:45 09/05/19 23:44 08/08/19 20:37 Amlodipine Besylate (Norvasc) 10 mg BID ORAL 07/26/19 18:00 08/25/19 17:59 08/09/19 18:00 Bethanechol Chloride (Urecholine) 50 mg THREE TIMES A DAY ORAL 08/09/19 09:00 09/01/19 13:59 08/09/19 18:00 Bisacodyl (Dulcolax) 10 mg DAILYPRN PRN RECTAL Constipation 08/04/19 19:00 09/03/19 18:59 08/06/19 06:40 Clonidine HCl (Catapres TTS-3) 1 patch QWEEK TDERMAL 07/22/19 12:00 08/21/19 11:59 08/05/19 14:59 Clonidine HCl (Catapres Tab) 0.1 mg Q4H PRN ORAL sbp>170 08/06/19 18:15 09/05/19 18:14 Finasteride (Proscar) 5 mg DAILY ORAL 07/28/19 09:00 08/27/19 08:59 08/09/19 09:29 Folic Acid (Folate) 1 mg DAILY ORAL 08/06/19 09:00 09/05/19 08:59 08/09/19 09:29 Heparin Sodium (Porcine) (Heparin 5000 units/ml) 5,000 units EVERY 12 HOURS SUBQ 08/01/19 21:00 08/31/19 20:59 08/08/19 20:30 Hydralazine HCl (Apresoline) 100 mg BID ORAL 07/26/19 18:00 08/25/19 17:59 08/09/19 18:00 Quetiapine Fumarate (SEROqueL) 25 mg Q6H PRN ORAL For Anxiety 07/22/19 12:45 08/21/19 12:44 Quetiapine Fumarate (SEROqueL) 25 mg QHS ORAL 07/21/19 21:00 08/20/19 20:59 08/08/19 20:28 Tamsulosin HCl (Flomax) 0.4 mg BID ORAL 07/27/19 18:00 08/26/19 17:59 08/09/19 18:00 Little Flores DO Aug 09, 2019 21:04
[2019-08-10] VITALS: BP 141/64
[2019-08-10 04:00] VITALS: BP 126/63
--- NOTE | 2019-08-10 07:08 | NUR ---
NURSE NOTES: RESTED WELL, NO SIGNIFICANT CHANGE OF CONDITION NOTED THROUGHOUT THE NIGHT. SAFETY MAINTAINED. NAD.
--- NOTE | 2019-08-10 07:30 | NUR ---
HAND-OFF: Report given to ARELY SPENCER.
[2019-08-10 08:00] VITALS: BP 137/62
--- NOTE | 2019-08-10 08:00 | NUR ---
NURSE NOTES: Receive pt in bed, AAO x 2. No c/o of pain/distress. IV on L hand 22g noted, with SL. FC intact, draining by gravity. Side rail x2. Bed in the lowest, locked, and alarm on. Call light within reach. Will continue to monitor
[2019-08-10] MEDS: Tamsulosin 0.4mg cap ORAL SCH ×2 (08:32→17:15)
[2019-08-10] MEDS: HydrALAZINE 50mg tab ORAL SCH ×2 (08:32→17:15)
[2019-08-10] MEDS: Bethanechol 25mg Tab ORAL SCH ×3 (08:32→17:15)
[2019-08-10] MEDS: Heparin 5000 units/ml inj SUBQ SCH ×2 (08:33→21:10)
--- NOTE | 2019-08-10 10:19 | Urology Progress Note ---
Assessment/Plan Assessment/Plan: 1. Urinary retention. 2. BPH history. 3. Probable neurogenic bladder. 4. Renal insufficiency acute on chronic. 5. Hematuria. dickson indwelling for now hand irrigated and do PRN cont with flomax, proscar urecholine dose increased minimize seroquel voiding trial later cysto later f/u on blood cx Subjective Allergies: Coded Allergies: No Known Allergies (Unverified , 07/21/19) Subjective all noted, no new complaints Objective Last 24 Hour Vital Signs Date Time Temp Pulse Resp B/P (MAP) Pulse Ox O2 Delivery O2 Flow Rate FiO2 08/10/19 08:32 137/62 08/10/19 08:32 68 137/62 08/10/19 08:17 Room Air 08/10/19 08:00 98.2 68 20 137/62 (87) 95 08/10/19 08:00 75 08/10/19 04:00 68 08/10/19 04:00 97.9 71 16 126/63 (84) 100 08/10/19 00:00 97.9 78 16 141/64 (89) 95 08/09/19 23:48 85 08/09/19 21:00 Room Air 08/09/19 20:00 97.9 89 20 145/66 (92) 95 08/09/19 20:00 85 08/09/19 18:00 153/67 08/09/19 18:00 79 153/67 08/09/19 16:00 98.1 79 20 153/67 (95) 97 08/09/19 15:56 70 08/09/19 11:48 68 08/09/19 11:40 96.3 70 18 149/72 (97) 95 Intake and Output 08/09/19 08/10/19 19:00 07:00 Intake Total 600 ml Output Total 1601 ml 1000 ml Balance -1001 ml -1000 ml Intake Oral 600 ml Output Urine Total 1601 ml 1000 ml Microbiology Date/Time Source Procedure Growth Status 08/06/19 21:30 Blood Blood Culture - Preliminary NO GROWTH AFTER 72 HOURS Resulted 07/21/19 17:35 Nasal Nares - Final Complete 07/21/19 17:35 Nasal Nares - Final Complete 08/08/19 09:30 Indwelling Cath Urine Culture - Final NO GROWTH AFTER 48 HOURS Complete Current Medications Medications (Trade) Dose Ordered Sig/Hanh Route PRN Reason Start Time Stop Time Status Last Admin Dose Admin Acetaminophen (Tylenol) 650 mg Q6H PRN ORAL Mild Pain/Temp > 100.5 08/06/19 23:45 09/05/19 23:44 08/08/19 20:37 Amlodipine Besylate (Norvasc) 10 mg BID ORAL 07/26/19 18:00 08/25/19 17:59 08/10/19 08:32 Bethanechol Chloride (Urecholine) 50 mg THREE TIMES A DAY ORAL 08/09/19 09:00 09/01/19 13:59 08/10/19 08:32 Bisacodyl (Dulcolax) 10 mg DAILYPRN PRN RECTAL Constipation 08/04/19 19:00 09/03/19 18:59 08/06/19 06:40 Clonidine HCl (Catapres TTS-3) 1 patch QWEEK TDERMAL 07/22/19 12:00 08/21/19 11:59 08/05/19 14:59 Clonidine HCl (Catapres Tab) 0.1 mg Q4H PRN ORAL sbp>170 08/06/19 18:15 09/05/19 18:14 Finasteride (Proscar) 5 mg DAILY ORAL 07/28/19 09:00 08/27/19 08:59 08/10/19 08:32 Folic Acid (Folate) 1 mg DAILY ORAL 08/06/19 09:00 09/05/19 08:59 08/10/19 08:32 Heparin Sodium (Porcine) (Heparin 5000 units/ml) 5,000 units EVERY 12 HOURS SUBQ 08/01/19 21:00 08/31/19 20:59 08/10/19 08:33 Hydralazine HCl (Apresoline) 100 mg BID ORAL 07/26/19 18:00 08/25/19 17:59 08/10/19 08:32 Quetiapine Fumarate (SEROqueL) 25 mg Q6H PRN ORAL For Anxiety 07/22/19 12:45 08/21/19 12:44 Quetiapine Fumarate (SEROqueL) 25 mg QHS ORAL 07/21/19 21:00 08/20/19 20:59 08/09/19 21:44 Tamsulosin HCl (Flomax) 0.4 mg BID ORAL 07/27/19 18:00 08/26/19 17:59 08/10/19 08:32 Height (Feet): 5 Height (Inches): 5.00 Weight (Pounds): 176 Objective exam stable dickson indKali Dillon MD Aug 10, 2019 10:19
--- NOTE | 2019-08-10 10:48 | General Progress Note ---
Assessment/Plan Problem List: (1) Hypertension, benign ICD Codes: I10 - Essential (primary) hypertension SNOMED: 49204182 (2) Toxic metabolic encephalopathy ICD Codes: G92 - Toxic encephalopathy SNOMED: 888677661 (3) Gait abnormality ICD Codes: R26.9 - Unspecified abnormalities of gait and mobility SNOMED: 17877506 (4) Rhabdomyolysis ICD Codes: M62.82 - Rhabdomyolysis SNOMED: 872409538 Qualifiers: Qualified Codes: M62.82 - Rhabdomyolysis (5) JERMAINE (acute kidney injury) ICD Codes: N17.9 - Acute kidney failure, unspecified SNOMED: 34697736, 0326294 (6) Dehydration ICD Codes: E86.0 - Dehydration SNOMED: 88138433 (7) Episode of generalized weakness ICD Codes: R53.1 - Weakness SNOMED: 90472850 (8) Bacteremia due to Staphylococcus ICD Codes: R78.81 - Bacteremia SNOMED: 696438966595 (9) CKD (chronic kidney disease) stage 3, GFR 30-59 ml/min ICD Codes: N18.3 - Chronic kidney disease, stage 3 (moderate) SNOMED: 692849816 (10) Urinary retention ICD Codes: R33.9 - Retention of urine, unspecified SNOMED: 537258900 Assessment/Plan: remains confused, dickson for urinary retention, intake borderline, renal function stable Subjective ROS Limited/Unobtainable: Yes Allergies: Coded Allergies: No Known Allergies (Unverified , 07/21/19) Objective Last 24 Hour Vital Signs Date Time Temp Pulse Resp B/P (MAP) Pulse Ox O2 Delivery O2 Flow Rate FiO2 08/10/19 08:32 137/62 08/10/19 08:32 68 137/62 08/10/19 08:17 Room Air 08/10/19 08:00 98.2 68 20 137/62 (87) 95 08/10/19 08:00 75 08/10/19 04:00 68 08/10/19 04:00 97.9 71 16 126/63 (84) 100 08/10/19 00:00 97.9 78 16 141/64 (89) 95 08/09/19 23:48 85 08/09/19 21:00 Room Air 08/09/19 20:00 97.9 89 20 145/66 (92) 95 08/09/19 20:00 85 08/09/19 18:00 153/67 08/09/19 18:00 79 153/67 08/09/19 16:00 98.1 79 20 153/67 (95) 97 08/09/19 15:56 70 08/09/19 11:48 68 08/09/19 11:40 96.3 70 18 149/72 (97) 95 Intake and Output 08/09/19 08/10/19 19:00 07:00 Intake Total 600 ml Output Total 1601 ml 1000 ml Balance -1001 ml -1000 ml Intake Oral 600 ml Output Urine Total 1601 ml 1000 ml Height (Feet): 5 Height (Inches): 5.00 Weight (Pounds): 176 General Appearance: no apparent distress EENT: normal ENT inspection Neck: normal alignment Cardiovascular: normal rate, regular rhythm Respiratory/Chest: lungs clear Abdomen: non tender, soft Edema: no edema noted Arm (L), no edema noted Arm (R), no edema noted Leg (L), no edema noted Leg (R), no edema noted Pedal (L), no edema noted Pedal (R), no edema noted Generalized Neurologic: alert, disoriented Arthur Bethea MD Aug 10, 2019 10:48
[2019-08-10 12:00] VITALS: BP 152/64
--- NOTE | 2019-08-10 13:19 | Neurology Progress Note ---
Interim History Interim History Interim History Mr. Reji Au is a 79-year-old, right-handed, black gentleman, who has a relatively benign past history. He was brought to the hospital on 07/21/2019 after he had apparently fallen down and was on the floor of his apartment for 4 days. He himself has no recollection of what happened. Since he has been here he has been noted to have some gait problems. He was sleeping when I went to see him, however, he could be easily aroused. He feels well. He ate a good breakfast this morning but has not eaten his lunch yet. He continues to have significant cognitive dysfunction. He denies any new problems. He specifically denies any weakness on one side or the other, numbness on one side or the other, problems with speech, problems with language, or problems with his vision. Review of Systems Neuro Review of Systems Benign. Objective Physical Exam Last Vital Signs Date Time Temp Pulse Resp B/P (MAP) Pulse Ox O2 Delivery O2 Flow Rate FiO2 08/10/19 12:00 73 08/10/19 12:00 98.4 20 152/64 (93) 96 08/10/19 08:17 Room Air Neurologic Exam Objective PHYSICAL EXAMINATION: GENERAL: He is a well-developed, relatively well-nourished, Black gentleman, lying in bed in no acute distress. HEAD: Normocephalic and atraumatic. NECK: No neck rigidity was observed. EENT examination: Benign. NEUROLOGICAL EXAMINATION: Mental status examination: He was drowsy but could be aroused easily. He was oriented to self, July 2019 and hospital only. He did not know the name of the hospital or date. He was able to recall 3/3 words immediately but could only remember 1/3 after 1 minute and 3 minutes. He was able to remember presidents Trump and Obama only. His mathematical skills were impaired. His visuospatial function was also impaired. Frontal systems tasks: He was unable to perform Luria's hand sequences. Speech: He had no dysarthria. Language: He had an anomia for low-frequency words. Cranial nerve examination: II: The visual kang were intact on confrontation testing. III, IV & : The external ocular movements were full. The pupils were 3 mm in diameter and reactive sluggishly to light. V: He had normal facial sensations, and the temporales, masseters, and pterygoids functioned normally. VII: He had normal facial expressions and no facial asymmetry. VIII: He was able to hear and had no nystagmus. IX: The palate moved symmetrically on phonation. X: He had no hoarseness of voice. XI: The sternocleidomastoids and trapezii functioned well. XII: The tongue was in the midline without any fasciculations or atrophy. Motor system: The tone was normal in all 4 extremities. Examination of muscle mass revealed no focal wasting. Examination of power revealed G 5/5 power in all muscle groups tested. Sensory examination: He had intact sensations to pinprick and light touch. He had bilaterally graphesthesia. Reflexes: 2+ and bilaterally symmetrical at the biceps, triceps, brachioradialis and knees. 0 at both ankles. The plantar responses were flexor. Coordination: He performed well on [id number] testing. Stance: Deferred. Gait: Deferred. Impression/Recommendations Diagnostic Impression DIAGNOSTIC IMPRESSION: 1. Mr. Reji Au is a 79-year-old, right-handed, black gentleman, who has a relatively benign past history. He was brought to the hospital on 07/21/2019 after he had apparently fallen down and was on the floor of his apartment for 4 days. He himself has no recollection of what happened. Since he has been here he has been noted to have some gait problems. 2. He was sleeping when I went to see him, however, he could be easily aroused. He feels well. He ate a good breakfast this morning but has not eaten his lunch yet. He continues to have significant cognitive dysfunction. He denies any new problems. 3. On neurological examination, at this time, he is disoriented to the name of the hospital and date. He has significant problems with recent and remote memory, visuospatial function, higher cognitive function, and language. He also has significant bilateral frontal systems dysfunction. He has bilateral agraphesthesia. His strength is excellent in all 4 extremities but he is apractic. 4. Laboratory data on my initial evaluation revealed that he was anemic with a hemoglobin of 11.5 G. His latest BUN was 42 and latest creatinine is 2.3. When he came in his CK was 2257 and it had normalized to 241. He was folic acid deficient with a folic acid level of 7.5. His RPR was positive in a low titre of 1:1. The FTA-ABS is pending. 5. The MRI scan of the brain performed on 08/05/2019 revealed multiple acute infarcts involving both cerebral hemispheres, basal ganglia, and the left cerebellum. In addition multiple old small infarcts scattered in the brain were also seen. 6. Thus far cardiac monitoring has revealed no arrhythmia. 7. The patient's history and neurological examination are most consistent with significant cognitive dysfunction and in addition stance and possibly gait apraxia. He also exhibits significant frontal systems dysfunction. This is related to shower of emboli to the brain acutely and in addition remote possibly embolic phenomena to the brain. Recommendations RECOMMENDATIONS: 1. Continue present management. 2. Transesophageal echocardiogram with bubble study should be performed to evaluate the patient for cardiogenic source of emboli. 3. Continue cardiac monitoring to exclude atrial fibrillation as a reason for a cardiogenic source of emboli. 4. Agree with ID work up as per Dr. Lion. 5. Continue physical and occupational therapy to mobilize patient. 6. Folic acid 1 mg daily for folate deficiency. 7. Observe closely. Beka Smith M.D., M.S.P.H. Neurologist & Clinical Neurophysiologist Beka Smith MD Aug 10, 2019 13:19
[2019-08-10 16:00] VITALS: BP 140/59
--- NOTE | 2019-08-10 18:54 | Infectious Diseases Prog Note ---
Assessment/Plan Problems: (1) Positive RPR test Assessment & Plan: with low titer suspect either previous infection which he was treated for OR false positive result , await FTA-ABS test to confirm , no indication to treat at this point . screening for HIV is negative . will continue to monitor clinically (2) CVA (cerebral vascular accident) Assessment & Plan: with multiple vascular emboli, rule out cardiogenic source, thrombotic VS [place] related vegetations. blood culture x 2 is negative , with negative JOHN, and RF screening , recommend [facility] to better evaluate his valves . doesn't meet criteria for infectious endocarditis (3) CKD (chronic kidney disease) stage 3, GFR 30-59 ml/min Assessment & Plan: avoid nephrotoxics, close monitoring of renal function, follow up with nephrology (4) Failure to thrive in adult Assessment & Plan: etiology? dementia possibly, screening for HIV is negative , may need placement (5) Gait abnormality Assessment & Plan: PT/OT eval and possible placement Subjective Constitutional: Reports: no symptoms HEENT: Reports: no symptoms Respiratory: Reports: no symptoms Breasts: Reports: no symptoms Cardiovascular: Reports: no symptoms Gastrointestinal/Abdominal: Reports: no symptoms Genitourinary: Reports: no symptoms Neurologic: Reports: no symptoms Psychiatric: Reports: no symptoms Skin: Reports: no symptoms Endocrine: Reports: no symptoms Hematologic: Reports: no symptoms Musculoskeletal: Reports: no symptoms Allergies: Coded Allergies: No Known Allergies (Unverified , 07/21/19) Subjective He was comfortable, lethargic but responded well to verbal commands , oriented x 3 , no headache or blurry vision no cough or SOB, has unsteady gait Objective Vital Signs Last 24 Hour Vital Signs Date Time Temp Pulse Resp B/P (MAP) Pulse Ox O2 Delivery O2 Flow Rate FiO2 08/10/19 17:16 72 140/59 08/10/19 17:15 140/59 08/10/19 16:00 96.4 69 20 140/59 (86) 97 08/10/19 16:00 72 08/10/19 12:00 73 08/10/19 12:00 98.4 80 20 152/64 (93) 96 08/10/19 08:32 137/62 08/10/19 08:32 68 137/62 08/10/19 08:17 Room Air 08/10/19 08:00 98.2 68 20 137/62 (87) 95 08/10/19 08:00 75 08/10/19 04:00 68 08/10/19 04:00 97.9 71 16 126/63 (84) 100 08/10/19 00:00 97.9 78 16 141/64 (89) 95 08/09/19 23:48 85 08/09/19 21:00 Room Air 08/09/19 20:00 97.9 89 20 145/66 (92) 95 08/09/19 20:00 85 Height (Feet): 5 Height (Inches): 5.00 Weight (Pounds): 176 General Appearance: WD/WN, no acute distress HEENT: normocephalic, atraumatic, anicteric, mucous membranes moist, PERRL, supple, no JVD Respiratory/Chest: chest wall non-tender, lungs clear, normal breath sounds, no respiratory distress, no accessory muscle use Cardiovascular: normal peripheral pulses, normal rate, regular rhythm, no gallop/murmur, no JVD Abdomen: normal bowel sounds, soft, non tender, no organomegaly, non distended , no mass, no scars Genitourinary: normal external genitalia Extremities: no cyanosis, no clubbing Skin: no rash, no lesions, no ulcers Neurologic/Psychiatric: rn immunology II-XII grossly normal, alert, oriented x 3, responsive Lymphatic: no neck adenopathy, no groin adenopathy Musculoskeletal: normal muscle bulk, no effusion Microbiology Date/Time Source Procedure Growth Status 08/08/19 09:30 Indwelling Cath Urine Culture - Final NO GROWTH AFTER 48 HOURS Complete Current Medications Medications (Trade) Dose Ordered Sig/Hanh Route PRN Reason Start Time Stop Time Status Last Admin Dose Admin Acetaminophen (Tylenol) 650 mg Q6H PRN ORAL Mild Pain/Temp > 100.5 08/06/19 23:45 09/05/19 23:44 08/08/19 20:37 Amlodipine Besylate (Norvasc) 10 mg BID ORAL 07/26/19 18:00 08/25/19 17:59 08/10/19 17:16 Bethanechol Chloride (Urecholine) 50 mg THREE TIMES A DAY ORAL 08/09/19 09:00 09/01/19 13:59 08/10/19 17:15 Bisacodyl (Dulcolax) 10 mg DAILYPRN PRN RECTAL Constipation 08/04/19 19:00 09/03/19 18:59 08/06/19 06:40 Clonidine HCl (Catapres TTS-3) 1 patch QWEEK TDERMAL 07/22/19 12:00 08/21/19 11:59 08/05/19 14:59 Clonidine HCl (Catapres Tab) 0.1 mg Q4H PRN ORAL sbp>170 08/06/19 18:15 09/05/19 18:14 Finasteride (Proscar) 5 mg DAILY ORAL 07/28/19 09:00 08/27/19 08:59 08/10/19 08:32 Folic Acid (Folate) 1 mg DAILY ORAL 08/06/19 09:00 09/05/19 08:59 08/10/19 08:32 Heparin Sodium (Porcine) (Heparin 5000 units/ml) 5,000 units EVERY 12 HOURS SUBQ 08/01/19 21:00 08/31/19 20:59 08/10/19 08:33 Hydralazine HCl (Apresoline) 100 mg BID ORAL 07/26/19 18:00 08/25/19 17:59 08/10/19 17:15 Quetiapine Fumarate (SEROqueL) 25 mg Q6H PRN ORAL For Anxiety 07/22/19 12:45 08/21/19 12:44 Quetiapine Fumarate (SEROqueL) 25 mg QHS ORAL 07/21/19 21:00 08/20/19 20:59 08/09/19 21:44 Tamsulosin HCl (Flomax) 0.4 mg BID ORAL 07/27/19 18:00 08/26/19 17:59 08/10/19 17:15 Anastasia Lion M.D. Aug 10, 2019 18:54
--- NOTE | 2019-08-10 19:15 | NUR ---
HAND-OFF: Report given to ARELY Lopez.
--- NOTE | 2019-08-10 19:30 | NUR ---
NURSE NOTES: Received patient from Dion MCGEE. Patient in bed, on room air, no signs of respiratory distress. Bed in low position, locked, bed alarm on, call light within reach.
--- NOTE | 2019-08-10 19:37 | Pulmonology Progress Note ---
Assessment/Plan Assessment/Plan Assessment/Plan 1. Acute and chronic CVA, likely embolic 2. AMS, 2/2 above 3. Positive RPR, FTA-ABS pending 4. Dehydration/rhabdomyolysis/lactic acidosis - RESOLVED 5. Hyperproteinemia, possible myeloma 6. Hypertension - POORLY CONTROLLED 7. JERMAINE vs CKD, likely both 8. Obstructive uropathy 9. Generalized weakness 10. Anemia, FOBT neg pulmonary stable Tele F/u [facility] Hold ing off on AC until etiology of CVA determined F/U renal recs and w/u ---> FC x 1 week, continue Finasteride, Flomax and Bethanachol mIVF per renal Will need an outpatient eval Needs age appropriate malignancy screening and primary care as an outpatient Monitor HH, FOBT neg, F/U UPEP BP control PT/OT DVT Px: Hep SQ Dispo planning to SNF once acute issues resolved Subjective Constitutional: Reports: no symptoms Respiratory: Reports: no symptoms Cardiovascular: Reports: no symptoms Gastrointestinal/Abdominal: Reports: no symptoms Allergies: Coded Allergies: No Known Allergies (Unverified , 07/21/19) Subjective awake communciates and follows commands no distress no bleeding no nv no cp reported Objective Last 24 Hour Vital Signs Date Time Temp Pulse Resp B/P (MAP) Pulse Ox O2 Delivery O2 Flow Rate FiO2 08/10/19 17:16 72 140/59 08/10/19 17:15 140/59 08/10/19 16:00 96.4 69 20 140/59 (86) 97 08/10/19 16:00 72 08/10/19 12:00 73 08/10/19 12:00 98.4 80 20 152/64 (93) 96 08/10/19 08:32 137/62 08/10/19 08:32 68 137/62 08/10/19 08:17 Room Air 08/10/19 08:00 98.2 68 20 137/62 (87) 95 08/10/19 08:00 75 08/10/19 04:00 68 08/10/19 04:00 97.9 71 16 126/63 (84) 100 08/10/19 00:00 97.9 78 16 141/64 (89) 95 08/09/19 23:48 85 08/09/19 21:00 Room Air 08/09/19 20:00 97.9 89 20 145/66 (92) 95 08/09/19 20:00 85 Intake and Output 08/09/19 08/10/19 19:00 07:00 Intake Total 600 ml Output Total 1601 ml 1000 ml Balance -1001 ml -1000 ml Intake Oral 600 ml Output Urine Total 1601 ml 1000 ml General Appearance: WD/WN Respiratory/Chest: rhonchi Cardiovascular: normal rate, regular rhythm Abdomen: soft, non tender, no organomegaly Neurologic/Psychiatric: alert, responsive Lymphatic: no neck adenopathy Microbiology Date/Time Source Procedure Growth Status 08/08/19 09:30 Indwelling Cath Urine Culture - Final NO GROWTH AFTER 48 HOURS Complete Current Medications Medications (Trade) Dose Ordered Sig/Hanh Route PRN Reason Start Time Stop Time Status Last Admin Dose Admin Acetaminophen (Tylenol) 650 mg Q6H PRN ORAL Mild Pain/Temp > 100.5 08/06/19 23:45 09/05/19 23:44 08/08/19 20:37 Amlodipine Besylate (Norvasc) 10 mg BID ORAL 07/26/19 18:00 08/25/19 17:59 08/10/19 17:16 Bethanechol Chloride (Urecholine) 50 mg THREE TIMES A DAY ORAL 08/09/19 09:00 09/01/19 13:59 08/10/19 17:15 Bisacodyl (Dulcolax) 10 mg DAILYPRN PRN RECTAL Constipation 08/04/19 19:00 09/03/19 18:59 08/06/19 06:40 Clonidine HCl (Catapres TTS-3) 1 patch QWEEK TDERMAL 07/22/19 12:00 08/21/19 11:59 08/05/19 14:59 Clonidine HCl (Catapres Tab) 0.1 mg Q4H PRN ORAL sbp>170 08/06/19 18:15 09/05/19 18:14 Finasteride (Proscar) 5 mg DAILY ORAL 07/28/19 09:00 08/27/19 08:59 08/10/19 08:32 Folic Acid (Folate) 1 mg DAILY ORAL 08/06/19 09:00 09/05/19 08:59 08/10/19 08:32 Heparin Sodium (Porcine) (Heparin 5000 units/ml) 5,000 units EVERY 12 HOURS SUBQ 08/01/19 21:00 08/31/19 20:59 08/10/19 08:33 Hydralazine HCl (Apresoline) 100 mg BID ORAL 07/26/19 18:00 08/25/19 17:59 08/10/19 17:15 Quetiapine Fumarate (SEROqueL) 25 mg Q6H PRN ORAL For Anxiety 07/22/19 12:45 08/21/19 12:44 Quetiapine Fumarate (SEROqueL) 25 mg QHS ORAL 07/21/19 21:00 08/20/19 20:59 08/09/19 21:44 Tamsulosin HCl (Flomax) 0.4 mg BID ORAL 07/27/19 18:00 08/26/19 17:59 08/10/19 17:15 Little Flores DO Aug 10, 2019 19:37
[2019-08-10 20:00] VITALS: BP 135/52
[2019-08-11] VITALS: BP 159/75
[2019-08-11 04:00] VITALS: BP 146/77
--- NOTE | 2019-08-11 07:34 | NUR ---
NURSE NOTES: Received pt in bed, sleeping. No s/s of distress/pain. IV on LFA 22g intact and patent, with SL. Side rails x 2. Bed in the lowest, locked, and alarm on. Call light within reach. Will continue to monitor
[2019-08-11 07:55] LABS: ANION GAP 12 mmol/L (5-15); BLOOD UREA NITROGEN 53 mg/dL (7-18); CALCIUM 9.1 MG/DL (8.5-10.1); CARBON DIOXIDE 23 MMOL/L (21-32); CHLORIDE 107 MMOL/L (98-107); CREATININE 2.3 MG/DL (0.55-1.30); POTASSIUM 4.4 MMOL/L (3.5-5.1); SODIUM 142 MMOL/L (136-145)
[2019-08-11 08:00] VITALS: BP 145/73
[2019-08-11] MEDS: Heparin 5000 units/ml inj SUBQ SCH ×2 (08:36→20:28)
[2019-08-11] MEDS: HydrALAZINE 50mg tab ORAL SCH ×2 (08:36→17:27)
[2019-08-11] MEDS: Tamsulosin 0.4mg cap ORAL SCH ×2 (08:37→17:28)
[2019-08-11] MEDS: Bethanechol 25mg Tab ORAL SCH ×3 (08:37→17:28)
--- NOTE | 2019-08-11 08:41 | NUR ---
P.T Note: Pt declining to participate in P.T. despite encouragement. RN aware. Will reattempt as schedule permits.
--- NOTE | 2019-08-11 09:47 | Urology Progress Note ---
Assessment/Plan Assessment/Plan: 1. Urinary retention. 2. BPH history. 3. Probable neurogenic bladder. 4. Renal insufficiency acute on chronic. 5. Hematuria. dickson indwelling for now hand irrigated and do PRN cont with flomax, proscar urecholine dose increased minimize seroquel repat voiding trial today monitor PVR and reinsert dickson PRN cysto later f/u on blood cx Subjective Allergies: Coded Allergies: No Known Allergies (Unverified , 07/21/19) Subjective all noted, no new complaints Objective Last 24 Hour Vital Signs Date Time Temp Pulse Resp B/P (MAP) Pulse Ox O2 Delivery O2 Flow Rate FiO2 08/11/19 09:00 Room Air 08/11/19 08:37 69 145/73 08/11/19 08:36 145/73 08/11/19 08:00 62 08/11/19 08:00 96.7 69 19 145/73 (97) 97 08/11/19 04:00 65 08/11/19 04:00 96.8 73 20 146/77 (100) 98 08/11/19 00:00 96 08/11/19 00:00 97.7 82 20 159/75 (103) 96 08/10/19 21:00 Room Air 08/10/19 20:00 98.1 79 20 135/52 (79) 95 08/10/19 20:00 73 08/10/19 17:16 72 140/59 08/10/19 17:15 140/59 08/10/19 16:00 96.4 69 20 140/59 (86) 97 08/10/19 16:00 72 08/10/19 12:00 73 08/10/19 12:00 98.4 80 20 152/64 (93) 96 Intake and Output 08/10/19 08/11/19 19:00 07:00 Intake Total 640 ml 260 ml Output Total 500 ml 1600 ml Balance 140 ml -1340 ml Intake Oral 640 ml 260 ml Output Urine Total 500 ml 1600 ml Microbiology Date/Time Source Procedure Growth Status 08/06/19 21:30 Blood Blood Culture - Preliminary NO GROWTH AFTER 4 DAYS Resulted 07/21/19 17:35 Nasal Nares - Final Complete 07/21/19 17:35 Nasal Nares - Final Complete 08/08/19 09:30 Indwelling Cath Urine Culture - Final NO GROWTH AFTER 48 HOURS Complete Current Medications Medications (Trade) Dose Ordered Sig/Hanh Route PRN Reason Start Time Stop Time Status Last Admin Dose Admin Acetaminophen (Tylenol) 650 mg Q6H PRN ORAL Mild Pain/Temp > 100.5 08/06/19 23:45 09/05/19 23:44 08/08/19 20:37 Amlodipine Besylate (Norvasc) 10 mg BID ORAL 07/26/19 18:00 08/25/19 17:59 08/11/19 08:37 Bethanechol Chloride (Urecholine) 50 mg THREE TIMES A DAY ORAL 08/09/19 09:00 09/01/19 13:59 08/11/19 08:37 Bisacodyl (Dulcolax) 10 mg DAILYPRN PRN RECTAL Constipation 08/04/19 19:00 09/03/19 18:59 08/06/19 06:40 Clonidine HCl (Catapres TTS-3) 1 patch QWEEK TDERMAL 07/22/19 12:00 08/21/19 11:59 08/05/19 14:59 Clonidine HCl (Catapres Tab) 0.1 mg Q4H PRN ORAL sbp>170 08/06/19 18:15 09/05/19 18:14 Finasteride (Proscar) 5 mg DAILY ORAL 07/28/19 09:00 08/27/19 08:59 08/11/19 08:37 Folic Acid (Folate) 1 mg DAILY ORAL 08/06/19 09:00 09/05/19 08:59 08/11/19 08:37 Heparin Sodium (Porcine) (Heparin 5000 units/ml) 5,000 units EVERY 12 HOURS SUBQ 08/01/19 21:00 08/31/19 20:59 08/11/19 08:36 Hydralazine HCl (Apresoline) 100 mg BID ORAL 07/26/19 18:00 08/25/19 17:59 08/11/19 08:36 Quetiapine Fumarate (SEROqueL) 25 mg Q6H PRN ORAL For Anxiety 07/22/19 12:45 08/21/19 12:44 Quetiapine Fumarate (SEROqueL) 25 mg QHS ORAL 07/21/19 21:00 08/20/19 20:59 08/10/19 21:07 Tamsulosin HCl (Flomax) 0.4 mg BID ORAL 07/27/19 18:00 08/26/19 17:59 08/11/19 08:37 Laboratory Tests 08/11/19 06:19: Sodium Level 142, Potassium Level 4.4, Chloride Level 107, Carbon Dioxide Level 23, Anion Gap 12, Blood Urea Nitrogen 53H, Creatinine 2.3H, Estimat Glomerular Filtration Rate , Glucose Level 103, Calcium Level 9.1 Height (Feet): 5 Height (Inches): 5.00 Weight (Pounds): 176 Objective exam stable dickson indwelling Kali Serrano MD Aug 11, 2019 09:47
--- NOTE | 2019-08-11 11:46 | NUR ---
NURSE NOTES: FC was dc'd at 830 and pt hasn't void since then. Bladder scan shows 520 ml
[2019-08-11 12:00] VITALS: BP 132/80
--- NOTE | 2019-08-11 12:19 | NUR ---
*-* INSURANCE *-* ALL AVAILABLE CLINICALS HAVE BEEN FAXED TO: [facility] OPAL:PRIETO P: [phone] F: [phone]
--- NOTE | 2019-08-11 13:10 | Pulmonology Progress Note ---
Assessment/Plan Problems: (1) Rhabdomyolysis (2) JERMAINE (acute kidney injury) (3) Dehydration (4) Episode of generalized weakness (5) Weakness (6) Gait abnormality (7) Failure to thrive in adult (8) Hypertension, benign (9) Toxic metabolic encephalopathy (10) Bacteremia due to Staphylococcus (11) Positive RPR test (12) CVA (cerebral vascular accident) Assessment/Plan Assessment/Plan 1. Acute and chronic CVA, likely embolic 2. AMS, 2/2 above 3. Positive RPR, FTA-ABS pending 4. Dehydration/rhabdomyolysis/lactic acidosis - RESOLVED 5. Hyperproteinemia, possible myeloma 6. Hypertension - POORLY CONTROLLED 7. JERMAINE vs CKD, likely both 8. Obstructive uropathy 9. Generalized weakness 10. Anemia, FOBT neg PLAN: D/C tele F/u LESA - will check status Cardiology recs D/W neuro and cards, will hold off on AC until etiology of CVA determined F/U neuro recs and w/u F/U ID recs F/U renal recs and w/u F/U recs, voiding trial Needs age appropriate malignancy screening and primary care as an outpatient Monitor HH, FOBT neg, F/U UPEP BP control PT/OT DVT Px: Hep SQ Dispo planning to SNF once acute issues resolved Subjective Allergies: Coded Allergies: No Known Allergies (Unverified , 07/21/19) Subjective LESA still not done No change in MS No [id number] Objective Last 24 Hour Vital Signs Date Time Temp Pulse Resp B/P (MAP) Pulse Ox O2 Delivery O2 Flow Rate FiO2 08/11/19 12:00 98.1 70 18 132/80 (97) 98 08/11/19 09:00 Room Air 08/11/19 08:37 69 145/73 08/11/19 08:36 145/73 08/11/19 08:00 62 08/11/19 08:00 96.7 69 19 145/73 (97) 97 08/11/19 04:00 65 08/11/19 04:00 96.8 73 20 146/77 (100) 98 08/11/19 00:00 96 08/11/19 00:00 97.7 82 20 159/75 (103) 96 08/10/19 21:00 Room Air 08/10/19 20:00 98.1 79 20 135/52 (79) 95 08/10/19 20:00 73 08/10/19 17:16 72 140/59 08/10/19 17:15 140/59 08/10/19 16:00 96.4 69 20 140/59 (86) 97 08/10/19 16:00 72 Intake and Output 08/10/19 08/11/19 19:00 07:00 Intake Total 640 ml 260 ml Output Total 500 ml 1600 ml Balance 140 ml -1340 ml Intake Oral 640 ml 260 ml Output Urine Total 500 ml 1600 ml General Appearance: no acute distress, cachetic HEENT: normocephalic, atraumatic Respiratory/Chest: chest wall non-tender, lungs clear, normal breath sounds, no respiratory distress, no accessory muscle use Cardiovascular: normal peripheral pulses, normal rate, regular rhythm Abdomen: normal bowel sounds, soft, non tender, no organomegaly, non distended , no mass Extremities: no cyanosis, no clubbing, no edema Laboratory Tests 08/11/19 06:19: Sodium Level 142, Potassium Level 4.4, Chloride Level 107, Carbon Dioxide Level 23, Anion Gap 12, Blood Urea Nitrogen 53H, Creatinine 2.3H, Estimat Glomerular Filtration Rate , Glucose Level 103, Calcium Level 9.1 Current Medications Medications (Trade) Dose Ordered Sig/Hanh Route PRN Reason Start Time Stop Time Status Last Admin Dose Admin Acetaminophen (Tylenol) 650 mg Q6H PRN ORAL Mild Pain/Temp > 100.5 08/06/19 23:45 09/05/19 23:44 08/08/19 20:37 Amlodipine Besylate (Norvasc) 10 mg BID ORAL 07/26/19 18:00 08/25/19 17:59 08/11/19 08:37 Bethanechol Chloride (Urecholine) 50 mg THREE TIMES A DAY ORAL 08/09/19 09:00 09/01/19 13:59 08/11/19 08:37 Bisacodyl (Dulcolax) 10 mg DAILYPRN PRN RECTAL Constipation 08/04/19 19:00 09/03/19 18:59 08/06/19 06:40 Clonidine HCl (Catapres TTS-3) 1 patch QWEEK TDERMAL 07/22/19 12:00 08/21/19 11:59 08/05/19 14:59 Clonidine HCl (Catapres Tab) 0.1 mg Q4H PRN ORAL sbp>170 08/06/19 18:15 09/05/19 18:14 Finasteride (Proscar) 5 mg DAILY ORAL 07/28/19 09:00 08/27/19 08:59 08/11/19 08:37 Folic Acid (Folate) 1 mg DAILY ORAL 08/06/19 09:00 09/05/19 08:59 08/11/19 08:37 Heparin Sodium (Porcine) (Heparin 5000 units/ml) 5,000 units EVERY 12 HOURS SUBQ 08/01/19 21:00 08/31/19 20:59 08/11/19 08:36 Hydralazine HCl (Apresoline) 100 mg BID ORAL 07/26/19 18:00 08/25/19 17:59 08/11/19 08:36 Quetiapine Fumarate (SEROqueL) 25 mg Q6H PRN ORAL For Anxiety 07/22/19 12:45 08/21/19 12:44 Quetiapine Fumarate (SEROqueL) 25 mg QHS ORAL 07/21/19 21:00 08/20/19 20:59 08/10/19 21:07 Tamsulosin HCl (Flomax) 0.4 mg BID ORAL 07/27/19 18:00 08/26/19 17:59 08/11/19 08:37 Shiraz Cervantes MD Aug 11, 2019 13:10
--- NOTE | 2019-08-11 14:05 | NUR ---
NURSE NOTES: Patient is difficult to arouse. Pt does not respond to pain, but opens eyes and answers when spoken with loud voice and falls back to sleep. Vital signs BP 149/71, OR 71, SpO2 97%, RR 16. Blood sugar 105. Stat ABG and stat CT brain w/o brain was ordered. Will follow up and continue to monitor
--- NOTE | 2019-08-11 14:29 | NUR ---
CASE MANAGEMENT:REVIEW 08/11/19 SI: ACUTE RHABDOMYOLYSIS STAPH BACTEREMIA. MULTIPLE SMALL ACUTE INFARCTS 98.1 70 18 132/80 98% ON RA BUN+53 CR+2.3 IS: FOLATE PO QD URECHOLINE PO TID HEPARIN SQ Q12 PROSCAR PO QD FLOMAX PO BID NORVASC PO BID HYDRALAZINE PO BID IVF@50/HR : TELEMETRY STATUS PLAN: DISCHARGE PLANNING Addendum: 08/11/19 at 1438 by NADEGE BARTON LVN LVN PER DR MANUEL ~ THERE IS A CHANGE IN CONDITION ~ MORE ALTERED TODAY
--- NOTE | 2019-08-11 14:34 | NUR ---
DISCHARGE PLANNING PER DR MANUEL ~ WAITING FOR LESA THAT WAS ORDERED DISCUSSED WITH DR LAWSON (HEAD OF CARDIOLOGY)
--- NOTE | 2019-08-11 15:02 | NUR ---
SOCIAL WORK PROGRESS NOTE [facility] attempted to contact possible family member Regina Au [phone] (ringing and it went to remote access w/o vm option), (ringing and left a vm for call back) and [phone] (ringing w/o vm option). [facility] was unable to locate any family member at this time. Signed: 08/11/19 at 1504 by RUSSELL FRIEND <Co-Signature Required>
--- NOTE | 2019-08-11 15:07 | Diagnostic Imaging Report ---
Indication: Headache Technique: Contiguous 5 mm thick transaxial imaging of the head obtained in a Siemens Sensation [address] scanner. Soft tissue and bone windows generated. Automatic Exposure Control was utilized. Total Dose length Product (DLP): 1489.[address] Dose Index Volume (CTDIvol): 62.7 mGy Comparison: none Findings: There is mild to moderate prominence of the ventricles, basal cisterns, and cerebral sulci consistent with atrophy. Moderate, nonspecific, white matter hypoattenuation is noted throughout the brain consistent with chronic small vessel disease. There is a suggestion of a old lacunar infarct in the left cerebellum, right putamen. There is no midline shift, edema, acute hemorrhage, mass effect, or abnormal extra-axial fluid collections. Bones are unremarkable. Impression: No acute intracranial bleed, mass effect or edema. Suspected old lacunar infarcts. Moderate atrophy of the brain. Evidence of chronic small vessel disease involving white matter tracts. The CT scanner at [facility] is accredited by the [employer] and the scans are performed using dose optimization techniques as appropriate to a performed exam including Automatic Exposure control.
--- NOTE | 2019-08-11 15:19 | Infectious Diseases Prog Note ---
Assessment/Plan Problems: (1) Positive RPR test Assessment & Plan: with low titer suspect either previous infection which he was treated for OR false positive result , await FTA-ABS test to confirm , no indication to treat at this point . screening for HIV is negative . will continue to monitor clinically (2) CVA (cerebral vascular accident) Assessment & Plan: with multiple vascular emboli, rule out cardiogenic source, thrombotic VS [place] related vegetations. blood culture x 2 is negative , with negative JOHN, and RF screening , recommend LESA to better evaluate his valves . doesn't meet criteria for infectious endocarditis (3) CKD (chronic kidney disease) stage 3, GFR 30-59 ml/min Assessment & Plan: avoid nephrotoxics, close monitoring of renal function, follow up with nephrology (4) Failure to thrive in adult Assessment & Plan: etiology? dementia possibly, screening for HIV is negative , may need placement (5) Gait abnormality Assessment & Plan: PT/OT eval and possible placement (6) Encephalopathy acute Assessment & Plan: meds side effect , VS metabolic, recommend to hold seroquel and observe (7) Urinary retention Assessment & Plan: he is getting dickson catheter now urology is following Subjective Allergies: Coded Allergies: No Known Allergies (Unverified , 07/21/19) Subjective He was comfortable, lying in bed lethargic , minimally responsive to verbal commands , no cough or SOB, no nausea or vomiting , getting Dickson catheter in Objective Vital Signs Last 24 Hour Vital Signs Date Time Temp Pulse Resp B/P (MAP) Pulse Ox O2 Delivery O2 Flow Rate FiO2 08/11/19 12:00 64 08/11/19 12:00 98.1 70 18 132/80 (97) 98 08/11/19 09:00 Room Air 08/11/19 08:37 69 145/73 08/11/19 08:36 145/73 08/11/19 08:00 62 08/11/19 08:00 96.7 69 19 145/73 (97) 97 08/11/19 04:00 65 08/11/19 04:00 96.8 73 20 146/77 (100) 98 08/11/19 00:00 96 08/11/19 00:00 97.7 82 20 159/75 (103) 96 08/10/19 21:00 Room Air 1/19/20 20:00 98.1 79 20 135/52 (79) 95 08/10/19 20:00 73 08/10/19 17:16 72 140/59 08/10/19 17:15 140/59 08/10/19 16:00 96.4 69 20 140/59 (86) 97 08/10/19 16:00 72 Height (Feet): 5 Height (Inches): 5.00 Weight (Pounds): 176 General Appearance: WD/WN, no acute distress HEENT: normocephalic, atraumatic, anicteric, mucous membranes moist, PERRL Respiratory/Chest: chest wall non-tender, lungs clear, normal breath sounds, no respiratory distress, no accessory muscle use Cardiovascular: normal peripheral pulses, normal rate, regular rhythm, no gallop/murmur, no JVD Abdomen: normal bowel sounds, soft, non tender, no organomegaly, non distended , no mass, no scars Genitourinary: normal external genitalia Extremities: no cyanosis, no clubbing Skin: no rash, no lesions, no ulcers Neurologic/Psychiatric: trim setter helper II-XII grossly normal, responsive Lymphatic: no neck adenopathy, no groin adenopathy Musculoskeletal: normal muscle bulk, no effusion Laboratory Tests Test 08/11/19 06:19 08/11/19 13:46 Sodium Level 142 MMOL/L (136-145) Potassium Level 4.4 MMOL/L (3.5-5.1) Chloride Level 107 MMOL/L (98-107) Carbon Dioxide Level 23 MMOL/L (21-32) Anion Gap 12 mmol/L (5-15) Blood Urea Nitrogen 53 mg/dL (7-18) H Creatinine 2.3 MG/DL (0.55-1.30) H Estimat Glomerular Filtration Rate mL/min (>60) Glucose Level 103 MG/DL (74-106) Calcium Level 9.1 MG/DL (8.5-10.1) Arterial Blood pH 7.423 (7.350-7.450) Arterial Blood Partial Pressure CO2 32.9 mmHg (35.0-45.0) L Arterial Blood Partial Pressure O2 91.0 mmHg (75.0-100.0) Arterial Blood HCO3 21.0 mmol/L (22.0-26.0) L Arterial Blood Oxygen Saturation 97.0 % (95-100) Arterial Blood Base Excess -2.5 (-2-2) L Rojas Test Positive Current Medications Medications (Trade) Dose Ordered Sig/Hanh Route PRN Reason Start Time Stop Time Status Last Admin Dose Admin Acetaminophen (Tylenol) 650 mg Q6H PRN ORAL Mild Pain/Temp > 100.5 08/06/19 23:45 09/05/19 23:44 08/08/19 20:37 Amlodipine Besylate (Norvasc) 10 mg BID ORAL 07/26/19 18:00 08/25/19 17:59 08/11/19 08:37 Bethanechol Chloride (Urecholine) 50 mg THREE TIMES A DAY ORAL 08/09/19 09:00 09/01/19 13:59 08/11/19 13:14 Bisacodyl (Dulcolax) 10 mg DAILYPRN PRN RECTAL Constipation 08/04/19 19:00 09/03/19 18:59 08/06/19 06:40 Clonidine HCl (Catapres TTS-3) 1 patch QWEEK TDERMAL 07/22/19 12:00 08/21/19 11:59 08/05/19 14:59 Clonidine HCl (Catapres Tab) 0.1 mg Q4H PRN ORAL sbp>170 08/06/19 18:15 09/05/19 18:14 Finasteride (Proscar) 5 mg DAILY ORAL 07/28/19 09:00 08/27/19 08:59 08/11/19 08:37 Folic Acid (Folate) 1 mg DAILY ORAL 08/06/19 09:00 09/05/19 08:59 08/11/19 08:37 Heparin Sodium (Porcine) (Heparin 5000 units/ml) 5,000 units EVERY 12 HOURS SUBQ 08/01/19 21:00 08/31/19 20:59 08/11/19 08:36 Hydralazine HCl (Apresoline) 100 mg BID ORAL 07/26/19 18:00 08/25/19 17:59 08/11/19 08:36 Quetiapine Fumarate (SEROqueL) 25 mg Q6H PRN ORAL For Anxiety 07/22/19 12:45 08/21/19 12:44 Quetiapine Fumarate (SEROqueL) 25 mg QHS ORAL 07/21/19 21:00 08/20/19 20:59 08/10/19 21:07 Tamsulosin HCl (Flomax) 0.4 mg BID ORAL 07/27/19 18:00 08/26/19 17:59 08/11/19 08:37 Anastasia Lion M.D. Aug 11, 2019 15:19
--- NOTE | 2019-08-11 15:19 | Cardiac Electrophysiology PN ---
Assessment/Plan Assessment/Plan 1. 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 EF 60%. LESA still pending stabilization. Off anticoagulation to prevent hemorrhagic conversion of CVA until cleared by Neurology.Remained in SR on tele. 2. Hypertension. Continue Norvasc 10 mg b.i.d., hydralazine 100 mg b.i.d. as well as clonidine patch weekly and p.r.n. clonidine 3. Benign prostatic hypertrophy on Flomax and Proscar. 4. Dementia, on Seroquel per Dr. Mandel. 5. Acute rhabdomyolysis. 6. Staph bacteremia.On Abx 7. Stage 3 chronic kidney disease. 8. Positive RPR, FTA-ABS pending DW RN DC tele Subjective Subjective No events. In SR confused. Had ABG for AMS. Objective Last 24 Hour Vital Signs Date Time Temp Pulse Resp B/P (MAP) Pulse Ox O2 Delivery O2 Flow Rate FiO2 08/11/19 12:00 64 08/11/19 12:00 98.1 70 18 132/80 (97) 98 08/11/19 09:00 Room Air 08/11/19 08:37 69 145/73 08/11/19 08:36 145/73 08/11/19 08:00 62 08/11/19 08:00 96.7 69 19 145/73 (97) 97 08/11/19 04:00 65 08/11/19 04:00 96.8 73 20 146/77 (100) 98 08/11/19 00:00 96 08/11/19 00:00 97.7 82 20 159/75 (103) 96 08/10/19 21:00 Room Air 08/10/19 20:00 98.1 79 20 135/52 (79) 95 08/10/19 20:00 73 08/10/19 17:16 72 140/59 08/10/19 17:15 140/59 08/10/19 16:00 96.4 69 20 140/59 (86) 97 08/10/19 16:00 72 Intake and Output 08/10/19 08/11/19 19:00 07:00 Intake Total 640 ml 260 ml Output Total 500 ml 1600 ml Balance 140 ml -1340 ml Intake Oral 640 ml 260 ml Output Urine Total 500 ml 1600 ml Laboratory Tests Test 08/11/19 06:19 1/20/20 13:46 Sodium Level 142 MMOL/L (136-145) Potassium Level 4.4 MMOL/L (3.5-5.1) Chloride Level 107 MMOL/L (98-107) Carbon Dioxide Level 23 MMOL/L (21-32) Anion Gap 12 mmol/L (5-15) Blood Urea Nitrogen 53 mg/dL (7-18) H Creatinine 2.3 MG/DL (0.55-1.30) H Estimat Glomerular Filtration Rate mL/min (>60) Glucose Level 103 MG/DL (74-106) Calcium Level 9.1 MG/DL (8.5-10.1) Arterial Blood pH 7.423 (7.350-7.450) Arterial Blood Partial Pressure CO2 32.9 mmHg (35.0-45.0) L Arterial Blood Partial Pressure O2 91.0 mmHg (75.0-100.0) Arterial Blood HCO3 21.0 mmol/L (22.0-26.0) L Arterial Blood Oxygen Saturation 97.0 % (95-100) Arterial Blood Base Excess -2.5 (-2-2) L Rojas Test Positive Objective HEAD AND NECK: No JVD. LUNGS: Clear. CARDIOVASCULAR: Regular S1 and S2 with no gallop or murmur. ABDOMEN: Soft and nontender. EXTREMITIES: No pitting edema. Lance Nichols MD Aug 11, 2019 15:19
[2019-08-11 16:00] VITALS: BP 134/64
--- NOTE | 2019-08-11 16:16 | Nephrology Progress Note ---
Assessment/Plan Problem List: (1) Hypertension, benign (2) Toxic metabolic encephalopathy (3) Gait abnormality (4) Rhabdomyolysis (5) JERMAINE (acute kidney injury) (6) Dehydration (7) Episode of generalized weakness (8) Bacteremia due to Staphylococcus (9) CKD (chronic kidney disease) stage 3, GFR 30-59 ml/min (10) Urinary retention Plan f/u lab, , mobilize, try to get coop to po meds lab trend better until 1/ rise in creat , ckd3, renal US, mobilize, dickson placed as 800 ml residual , would keep dickson for one week, flomax and finasteride started, voiding trial so far bladder residual 350 08/02 then voided check again later, add urecholine, dickson was replaced renal function stable--recheck lab as prior afib , now nsr, bun/cr higher 08/07 I will increase iv rate, repeat 08/08 reviewed, can observe K, voiding trial again failed and dickson placed 08/08, bun and creatinine higher, restart iv fluid Subjective ROS Limited/Unobtainable: Yes Constitutional: Reports: weakness HEENT: Reports: no symptoms Objective Objective Last 24 Hour Vital Signs Date Time Temp Pulse Resp B/P (MAP) Pulse Ox O2 Delivery O2 Flow Rate FiO2 08/11/19 12:00 64 08/11/19 12:00 98.1 70 18 132/80 (97) 98 08/11/19 09:00 Room Air 08/11/19 08:37 69 145/73 08/11/19 08:36 145/73 08/11/19 08:00 62 08/11/19 08:00 96.7 69 19 145/73 (97) 97 08/11/19 04:00 65 08/11/19 04:00 96.8 73 20 146/77 (100) 98 08/11/19 00:00 96 08/11/19 00:00 97.7 82 20 159/75 (103) 96 08/10/19 21:00 Room Air 08/10/19 20:00 98.1 79 20 135/52 (79) 95 08/10/19 20:00 73 08/10/19 17:16 72 140/59 08/10/19 17:15 140/59 Intake and Output 08/10/19 08/11/19 19:00 07:00 Intake Total 640 ml 260 ml Output Total 500 ml 1600 ml Balance 140 ml -1340 ml Intake Oral 640 ml 260 ml Output Urine Total 500 ml 1600 ml Laboratory Tests 08/11/19 06:19: Sodium Level 142, Potassium Level 4.4, Chloride Level 107, Carbon Dioxide Level 23, Anion Gap 12, Blood Urea Nitrogen 53H, Creatinine 2.3H, Estimat Glomerular Filtration Rate , Glucose Level 103, Calcium Level 9.1 08/11/19 13:46: Arterial Blood pH 7.423, Arterial Blood Partial Pressure CO2 32.9L, Arterial Blood Partial Pressure O2 91.0, Arterial Blood HCO3 21.0L, Arterial Blood Oxygen Saturation 97.0, Arterial Blood Base Excess -2.5L, Rojas Test Positive Height (Feet): 5 Height (Inches): 5.00 Weight (Pounds): 176 General Appearance: no apparent distress EENT: normal ENT inspection Neck: normal alignment Cardiovascular: normal rate Respiratory/Chest: lungs clear Abdomen: non tender Extremities: non-tender, no edema Neurologic: clinical admissions manager II-XII grossly normal Arthur Bethea MD Aug 11, 2019 16:16
--- NOTE | 2019-08-11 18:13 | Neurology Progress Note ---
Interim History Interim History Interim History Mr. Reji Au is a 79-year-old, right-handed, black gentleman, who has a relatively benign past history. He was brought to the hospital on 07/21/2019 after he had apparently fallen down and was on the floor of his apartment for 4 days. He himself has no recollection of what happened. Since he has been here he has been noted to have some gait problems. He was sleeping when I went to see him. He did wake up on painful stimuli but was non-verbal As per his nurse, he has been non-verbal all day. He did not cooperate with an examination today. Review of Systems Neuro Review of Systems Unable to obtain. Objective Physical Exam Last Vital Signs Date Time Temp Pulse Resp B/P (MAP) Pulse Ox O2 Delivery O2 Flow Rate FiO2 08/11/19 16:00 98.7 89 18 134/64 (87) 90 08/11/19 09:00 Room Air Laboratory Tests Test 08/11/19 06:19 08/11/19 13:46 Sodium Level 142 MMOL/L (136-145) Potassium Level 4.4 MMOL/L (3.5-5.1) Chloride Level 107 MMOL/L (98-107) Carbon Dioxide Level 23 MMOL/L (21-32) Anion Gap 12 mmol/L (5-15) Blood Urea Nitrogen 53 mg/dL (7-18) H Creatinine 2.3 MG/DL (0.55-1.30) H Estimat Glomerular Filtration Rate mL/min (>60) Glucose Level 103 MG/DL (74-106) Calcium Level 9.1 MG/DL (8.5-10.1) Arterial Blood pH 7.423 (7.350-7.450) Arterial Blood Partial Pressure CO2 32.9 mmHg (35.0-45.0) L Arterial Blood Partial Pressure O2 91.0 mmHg (75.0-100.0) Arterial Blood HCO3 21.0 mmol/L (22.0-26.0) L Arterial Blood Oxygen Saturation 97.0 % (95-100) Arterial Blood Base Excess -2.5 (-2-2) L Rojas Test Positive Neurologic Exam Objective PHYSICAL EXAMINATION: GENERAL: He is a well-developed, relatively well-nourished, Black gentleman, lying in bed in no acute distress. HEAD: Normocephalic and atraumatic. NECK: No neck rigidity was observed. EENT examination: Benign. NEUROLOGICAL EXAMINATION: Mental status examination: He could be aroused with deep painful stimuli. He was non-verbal and negativistic. Further mental status testing was impossible. Frontal systems tasks: Could not be tested. Speech: Could not be tested. Language: Could not be tested. Cranial nerve examination: II: He did blink to threat. III, IV & : The external ocular movements were present on OCM. The pupils were 3 mm in diameter and reactive sluggishly to light. V-VII: The corneal reflexes were equal bilaterally. VIII: Hearing could not be tested. IX: Could not be tested. X: Could not be tested. XI: The sternocleidomastoids and trapezii functioned. XII: The tongue was in the midline. Motor system: The tone was normal in all 4 extremities. Examination of muscle mass revealed no focal wasting. He moved all 4 extremities with good power on painful stimuli. Sensory examination: He moved all 4 extremities with good power on painful stimuli. Reflexes: 2+ and bilaterally symmetrical at the biceps, triceps, brachioradialis and knees. 0 at both ankles. The plantar responses were flexor. Coordination: Could not be tested. Stance: Could not be tested. Gait: Could not be tested. Impression/Recommendations Diagnostic Impression DIAGNOSTIC IMPRESSION: 1. Mr. Reji Au is a 79-year-old, right-handed, black gentleman, who has a relatively benign past history. He was brought to the hospital on 07/21/2019 after he had apparently fallen down and was on the floor of his apartment for 4 days. He himself has no recollection of what happened. Since he has been here he has been noted to have some gait problems. 2. He was sleeping when I went to see him. He did wake up on painful stimuli but was non-verbal. As per his nurse, he has been non-verbal all day. He did not cooperate with an examination today. 3. On neurological examination, at this time, he can be aroused with deep painful stimuli. He is non-verbal and negativistic. Further mental status testing is impossible. He does not cooperate for speech and language testing. He however does not demonstrate any lateralizing findings. 4. Laboratory data on my initial evaluation revealed that he was anemic with a hemoglobin of 11.5 G. His latest BUN was 42 and latest creatinine is 2.3. When he came in his CK was 2257 and it had normalized to 241. He was folic acid deficient with a folic acid level of 7.5. His RPR was positive in a low titre of 1:1. The FTA-ABS is pending. 5. The MRI scan of the brain performed on 08/05/2019 revealed multiple acute infarcts involving both cerebral hemispheres, basal ganglia, and the left cerebellum. In addition multiple old small infarcts scattered in the brain were also seen. 6. A CT of the brain done today reveals atrophy, deep white matter changes and old infarcts but no acute pathology. 7. Thus far cardiac monitoring has revealed no arrhythmia. 8. The patient's history and neurological examination are most consistent with significant cognitive dysfunction and in addition stance and possibly gait apraxia. He also exhibits significant frontal systems dysfunction. This is related to shower of emboli to the brain acutely and in addition remote possibly embolic phenomena to the brain. 9. At this point in time he is exhibiting unusual behavior. It is unclear if he has had a new cerebral infarct or whether it is a pure behavioral problem. Recommendations RECOMMENDATIONS: 1. Continue present management. 2. Transesophageal echocardiogram with bubble study should be performed to evaluate the patient for cardiogenic source of emboli. 3. Continue cardiac monitoring to exclude atrial fibrillation as a reason for a cardiogenic source of emboli. 4. Agree with ID work up as per Dr. Lion. 5. Continue physical and occupational therapy to mobilize patient. 6. Folic acid 1 mg daily for folate deficiency. 7. Repeat Brain MRI tomorrow. 8. Observe closely. Beka Smith M.D., M.S.P.H. Neurologist & Clinical Neurophysiologist Beka Smith MD Aug 11, 2019 18:13
--- NOTE | 2019-08-11 19:26 | NUR ---
HAND-OFF: Report given to ARELY Lopez.
--- NOTE | 2019-08-11 19:30 | NUR ---
NURSE NOTES: Received patient from Dion MCGEE. Patient in bed, lethargic, arousable to physical stimuli, answers verbally to yes or no questions, obeys commands, able to move upper extremities. Oriented to self and place. Walsh catheter intact, patent. 1/2NS infusing at 125ml/hr through left forearm 22gauge iv, no signs of infection or infiltration. Bed in low position, locked, bed alarm on, call light within reach. Dr. Smith and Helen aware of patient's decreased LOC.
[2019-08-11 20:00] VITALS: BP 137/73
--- NOTE | 2019-08-11 21:55 | NUR ---
NURSE NOTES: Patient pulled out his iv. Asked patient if he knows where he is, patient states he is in the hospital. Patient knows the month and year but does not know why or how he got here. Reminded patient that he was found on the floor by his neighbors and paramedics brought him to the hospital. Restarted iv on left hand, 22 gauge and 1/2NS at 125ml/hr. Instructed patient not to pull the iv out, patient verbalized understanding. Will hold seroquel prn for anxiety due to decreased LOC earlier in the day. Patient has not had a bowel movement since 08/06/19. No c/o cramps, pain, no abdominal distention, bowel sounds active x4. Asked patient if he will accept a suppository, patient agreed. Dulcolax 10mg supp administered.
--- NOTE | 2019-08-11 22:37 | NUR ---
NURSE NOTES: Asked patient if he would like to eat, patient refused but stated he would like to drink something. Gave orange juice and lemonade, patient was able to drink all of it (360ml).
--- NOTE | 2019-08-11 23:30 | NUR ---
NURSE NOTES: Patient had a small bowel movement (1 round formed bm).
[2019-08-12] VITALS: BP 131/89
--- NOTE | 2019-08-12 00:43 | NUR ---
NURSE NOTES: Patient had another small bowel movement.
--- NOTE | 2019-08-12 00:57 | NUR ---
NURSE NOTES: Patient had a large formed stool.
--- NOTE | 2019-08-12 03:00 | Progress Note ---
DATE: 08/12/2019 SUBJECTIVE: The patient is in bed, calm, no acute distress noted. The patient is still confused and has episodes of anxiety, poor memory, has loss of consciousness. MENTAL STATUS EXAMINATION: The patient is asleep, arousable, disoriented to date and situation. Mood is anxious. Affect is flat. Thought process, there is a paucity of thought content. . ASSESSMENT: Acute encephalopathy. PLAN: 1. We will continue current psychotropic medication. 2. Provide the patient with reality orientation and supportive therapy. Nury Mandel M.D. DR: DANNY JOB#: [id number] CC:
[2019-08-12 04:00] VITALS: BP 135/84
--- NOTE | 2019-08-12 05:30 | NUR ---
HAND-OFF: Report given to Karyn MCGEE.
--- NOTE | 2019-08-12 05:30 | NUR ---
NURSE NOTES: Received a report from ARELY Lopez. Pt is in stable condition. AOX3. On room air. No c/o pain/discomfort. IV site is patent and intact. Walsh catheter is draining. Skin is intact. Bed in lowest position. Bed alarm is on. Call light within reach. Will continue to monitor.
[2019-08-12 07:11] LABS: ANION GAP 14 mmol/L (5-15); BLOOD UREA NITROGEN 46 mg/dL (7-18); CALCIUM 9.2 MG/DL (8.5-10.1); CARBON DIOXIDE 21 MMOL/L (21-32); CHLORIDE 105 MMOL/L (98-107); CREATININE 2.1 MG/DL (0.55-1.30); POTASSIUM 4.2 MMOL/L (3.5-5.1); SODIUM 140 MMOL/L (136-145)
--- NOTE | 2019-08-12 07:20 | NUR ---
NURSE NOTES: WALKING ROUNDS DONE WITH NIGHT RN. PATIENT AWAKE IN BED HAVING BREAKFAST. DENIES PAIN OR ANY ISSUES THIS MORNING. DISCUSSED PLAN OF CARE FOR THE DAY. VERBALIZED UNDERSTANDING. BED IN LOW AND LOCKED IN POSITION. CALL LIGHT WITHIN REACH.
--- NOTE | 2019-08-12 07:32 | NUR ---
HAND-OFF: Report given to ARELY Hooker.
[2019-08-12 08:00] VITALS: BP 155/66
--- NOTE | 2019-08-12 08:50 | NUR ---
NURSE NOTES: HEAD TO TOE ASSESSMENT INITIATED. SKIN INTACT. NOTED SMALL PINPOINT RED SPOT TO LEFT LATERAL HEEL. NOTED NOT ON BONY PROMINENCE. PREVENT MEASURES IN PLACE. OPTIFOAM TO AREA APPLIED. HEELS FLOATING. SACRAL AREA WITH OPTIFOAM AND TRIAD APPLIED. PATIENT ABLE TO REPOSITION SELF BUT REMINDED TO SHIFT WEIGHT AND TURN Q2H. BED IN LOW AND LOCKED POSITION. CALL LIGHT WITHIN REACH.
--- NOTE | 2019-08-12 08:51 | NUR ---
MRI BRAIN W/O COMPLETED
--- NOTE | 2019-08-12 09:00 | Pulmonology Progress Note ---
Assessment/Plan Problems: (1) Rhabdomyolysis (2) JERMAINE (acute kidney injury) (3) Dehydration (4) Episode of generalized weakness (5) Weakness (6) Gait abnormality (7) Failure to thrive in adult (8) Hypertension, benign (9) Toxic metabolic encephalopathy (10) Bacteremia due to Staphylococcus (11) Positive RPR test (12) CVA (cerebral vascular accident) Assessment/Plan Assessment/Plan 1. Acute and chronic CVA, likely embolic 2. AMS, 2/2 above 3. Positive RPR, FTA-ABS pending 4. Dehydration/rhabdomyolysis/lactic acidosis - RESOLVED 5. Hyperproteinemia, possible myeloma 6. Hypertension - POORLY CONTROLLED 7. JERMAINE vs CKD, likely both 8. Obstructive uropathy 9. Generalized weakness 10. Anemia, FOBT neg PLAN: F/u LESA - awaiting consent Cardiology recs D/W neuro and cards, will hold off on AC until etiology of CVA determined F/U neuro recs and w/u ---> Repeat MRI brain today F/U ID recs F/U renal recs and w/u F/U recs, voiding trial Needs age appropriate malignancy screening and primary care as an outpatient Monitor HH, FOBT neg, F/U UPEP BP control PT/OT DVT Px: Hep SQ Dispo planning to SNF once acute issues resolved Subjective Allergies: Coded Allergies: No Known Allergies (Unverified , 07/21/19) Subjective LESA still not done Awaiting MRI Slight improvement MS No [id number] Objective Last 24 Hour Vital Signs Date Time Temp Pulse Resp B/P (MAP) Pulse Ox O2 Delivery O2 Flow Rate FiO2 08/12/19 04:00 98.2 81 18 135/84 (101) 96 08/12/19 01:00 Room Air 08/12/19 00:00 98.1 74 18 131/89 (103) 97 85 08/11/19 21:05 Room Air 08/11/19 20:00 97.7 74 18 137/73 (94) 96 08/11/19 16:00 98.7 89 18 134/64 (87) 90 08/11/19 12:00 64 08/11/19 12:00 98.1 70 18 132/80 (97) 98 08/11/19 09:00 Room Air Intake and Output 08/11/19 08/12/19 19:00 07:00 Intake Total 1985 ml Output Total 500 ml 1700 ml Balance -500 ml 285 ml Intake Oral 360 ml IV Total 1625 ml Output Urine Total 500 ml 1700 ml # Bowel Movements 3 General Appearance: no acute distress, cachetic HEENT: normocephalic, atraumatic, anicteric, mucous membranes moist Respiratory/Chest: chest wall non-tender, lungs clear, normal breath sounds, no respiratory distress, no accessory muscle use Cardiovascular: normal peripheral pulses, normal rate, regular rhythm Abdomen: normal bowel sounds, soft, non tender, no organomegaly, non distended , no mass Extremities: no cyanosis, no clubbing, no edema Laboratory Tests 08/11/19 13:46: Arterial Blood pH 7.423, Arterial Blood Partial Pressure CO2 32.9L, Arterial Blood Partial Pressure O2 91.0, Arterial Blood HCO3 21.0L, Arterial Blood Oxygen Saturation 97.0, Arterial Blood Base Excess -2.5L, Rojas Test Positive 08/12/19 06:28: Sodium Level 140, Potassium Level 4.2, Chloride Level 105, Carbon Dioxide Level 21, Anion Gap 14, Blood Urea Nitrogen 46H, Creatinine 2.1H, Estimat Glomerular Filtration Rate , Glucose Level 143H, Calcium Level 9.2 Current Medications Medications (Trade) Dose Ordered Sig/Hanh Route PRN Reason Start Time Stop Time Status Last Admin Dose Admin Acetaminophen (Tylenol) 650 mg Q6H PRN ORAL Mild Pain/Temp > 100.5 08/06/19 23:45 09/05/19 23:44 08/08/19 20:37 Amlodipine Besylate (Norvasc) 10 mg BID ORAL 07/26/19 18:00 08/25/19 17:59 08/11/19 08:37 Bethanechol Chloride (Urecholine) 50 mg THREE TIMES A DAY ORAL 08/09/19 09:00 09/01/19 13:59 08/11/19 13:14 Bisacodyl (Dulcolax) 10 mg DAILYPRN PRN RECTAL Constipation 08/04/19 19:00 09/03/19 18:59 08/11/19 21:51 Clonidine HCl (Catapres TTS-3) 1 patch QWEEK TDERMAL 07/22/19 12:00 08/21/19 11:59 08/05/19 14:59 Clonidine HCl (Catapres Tab) 0.1 mg Q4H PRN ORAL sbp>170 08/06/19 18:15 09/05/19 18:14 Finasteride (Proscar) 5 mg DAILY ORAL 07/28/19 09:00 08/27/19 08:59 08/11/19 08:37 Folic Acid (Folate) 1 mg DAILY ORAL 08/06/19 09:00 09/05/19 08:59 08/11/19 08:37 Heparin Sodium (Porcine) (Heparin 5000 units/ml) 5,000 units EVERY 12 HOURS SUBQ 08/01/19 21:00 08/31/19 20:59 08/11/19 20:28 Hydralazine HCl (Apresoline) 100 mg BID ORAL 07/26/19 18:00 08/25/19 17:59 08/11/19 08:36 Quetiapine Fumarate (SEROqueL) 25 mg Q6H PRN ORAL For Anxiety 07/22/19 12:45 08/21/19 12:44 Sodium Chloride 1,000 ml @ 125 mls/hr Q8H IV 08/11/19 16:30 09/10/19 16:29 08/12/19 00:20 Tamsulosin HCl (Flomax) 0.4 mg BID ORAL 07/27/19 18:00 08/26/19 17:59 08/11/19 08:37 Shiraz Cervantes MD Aug 12, 2019 09:00
[2019-08-12] MEDS: Tamsulosin 0.4mg cap ORAL SCH ×2 (09:20→17:30)
[2019-08-12] MEDS: Bethanechol 25mg Tab ORAL SCH ×3 (09:20→17:30)
[2019-08-12] MEDS: HydrALAZINE 50mg tab ORAL SCH ×2 (09:20→17:30)
[2019-08-12] MEDS: Heparin 5000 units/ml inj SUBQ SCH ×2 (09:23→20:22)
--- NOTE | 2019-08-12 09:46 | Urology Progress Note ---
Assessment/Plan Assessment/Plan: 1. Urinary retention. 2. BPH history. 3. Probable neurogenic bladder. 4. Renal insufficiency acute on chronic. 5. Hematuria. dickson remains indwelling for now, replaced 08/11 hand irrigated and do PRN cont with flomax, proscar urecholine dose increased minimize seroquel repeat voiding trial later cysto later Subjective Allergies: Coded Allergies: No Known Allergies (Unverified , 07/21/19) Subjective all noted, no new complaints, dickson was reinserted Objective Last 24 Hour Vital Signs Date Time Temp Pulse Resp B/P (MAP) Pulse Ox O2 Delivery O2 Flow Rate FiO2 08/12/19 09:20 155/61 08/12/19 09:20 87 155/66 08/12/19 04:00 98.2 81 18 135/84 (101) 96 08/12/19 01:00 Room Air 08/12/19 00:00 98.1 74 18 131/89 (103) 97 85 08/11/19 21:05 Room Air 08/11/19 20:00 97.7 74 18 137/73 (94) 96 08/11/19 16:00 98.7 89 18 134/64 (87) 90 08/11/19 12:00 64 08/11/19 12:00 98.1 70 18 132/80 (97) 98 Intake and Output 08/11/19 08/12/19 19:00 07:00 Intake Total 1985 ml Output Total 500 ml 1700 ml Balance -500 ml 285 ml Intake Oral 360 ml IV Total 1625 ml Output Urine Total 500 ml 1700 ml # Bowel Movements 3 Microbiology Date/Time Source Procedure Growth Status 08/06/19 21:30 Blood Blood Culture - Final NO GROWTH AFTER 5 DAYS Complete 07/21/19 17:35 Nasal Nares - Final Complete 07/21/19 17:35 Nasal Nares - Final Complete 08/08/19 09:30 Indwelling Cath Urine Culture - Final NO GROWTH AFTER 48 HOURS Complete Current Medications Medications (Trade) Dose Ordered Sig/Hanh Route PRN Reason Start Time Stop Time Status Last Admin Dose Admin Acetaminophen (Tylenol) 650 mg Q6H PRN ORAL Mild Pain/Temp > 100.5 08/06/19 23:45 09/05/19 23:44 08/08/19 20:37 Amlodipine Besylate (Norvasc) 10 mg BID ORAL 07/26/19 18:00 08/25/19 17:59 08/12/19 09:20 Bethanechol Chloride (Urecholine) 50 mg THREE TIMES A DAY ORAL 08/09/19 09:00 09/01/19 13:59 08/12/19 09:20 Bisacodyl (Dulcolax) 10 mg DAILYPRN PRN RECTAL Constipation 08/04/19 19:00 09/03/19 18:59 08/11/19 21:51 Clonidine HCl (Catapres TTS-3) 1 patch QWEEK TDERMAL 07/22/19 12:00 08/21/19 11:59 08/05/19 14:59 Clonidine HCl (Catapres Tab) 0.1 mg Q4H PRN ORAL sbp>170 08/06/19 18:15 09/05/19 18:14 Finasteride (Proscar) 5 mg DAILY ORAL 07/28/19 09:00 08/27/19 08:59 08/12/19 09:20 Folic Acid (Folate) 1 mg DAILY ORAL 08/06/19 09:00 09/05/19 08:59 08/12/19 09:20 Heparin Sodium (Porcine) (Heparin 5000 units/ml) 5,000 units EVERY 12 HOURS SUBQ 08/01/19 21:00 08/31/19 20:59 08/12/19 09:23 Hydralazine HCl (Apresoline) 100 mg BID ORAL 07/26/19 18:00 08/25/19 17:59 08/12/19 09:20 Quetiapine Fumarate (SEROqueL) 25 mg Q6H PRN ORAL For Anxiety 07/22/19 12:45 08/21/19 12:44 Sodium Chloride 1,000 ml @ 125 mls/hr Q8H IV 08/11/19 16:30 09/10/19 16:29 08/12/19 09:18 Tamsulosin HCl (Flomax) 0.4 mg BID ORAL 07/27/19 18:00 08/26/19 17:59 08/12/19 09:20 Laboratory Tests 08/11/19 13:46: Arterial Blood pH 7.423, Arterial Blood Partial Pressure CO2 32.9L, Arterial Blood Partial Pressure O2 91.0, Arterial Blood HCO3 21.0L, Arterial Blood Oxygen Saturation 97.0, Arterial Blood Base Excess -2.5L, Rojas Test Positive 08/12/19 06:28: Sodium Level 140, Potassium Level 4.2, Chloride Level 105, Carbon Dioxide Level 21, Anion Gap 14, Blood Urea Nitrogen 46H, Creatinine 2.1H, Estimat Glomerular Filtration Rate , Glucose Level 143H, Calcium Level 9.2 Height (Feet): 5 Height (Inches): 5.00 Weight (Pounds): 176 Objective exam stable dickson indwelling BamshadKali MD Aug 12, 2019 09:46
--- NOTE | 2019-08-12 10:21 | NUR ---
MACROECONOMICS PROFESSOR PROGRESS NOTE PHUC spoke to Paola from [facility] office [phone] and confirmed that pt is not conserved and there is no record of pt at [facility], therefore Paola was unable to find any record i.e. family/relative information. PHUC is unable to locate family member at this time. Signed: 08/12/19 at 1022 by RUSSELL FRIEND <Co-Signature Required>
--- NOTE | 2019-08-12 11:00 | Cardiac Electrophysiology PN ---
Assessment/Plan Assessment/Plan 1. 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 EF 60%. LESA pending Off anticoagulation to prevent hemorrhagic conversion of CVA until cleared by Neurology.Remained in SR on tele. 2. Hypertension. Continue Norvasc 10 mg b.i.d., hydralazine 100 mg b.i.d., clonidine patch weekly and p.r.n. clonidine 3. Benign prostatic hypertrophy on Flomax and Proscar. 4. Dementia, on Seroquel per Dr. Mandel. 5. Acute rhabdomyolysis. 6. Staph bacteremia.On Abx 7. Stage 3 chronic kidney disease. 8. Positive RPR, FTA-ABS pending DW RN and the therapist Subjective Subjective Alert in NAD. Working with the therapist.No CP or SOB Objective Last 24 Hour Vital Signs Date Time Temp Pulse Resp B/P (MAP) Pulse Ox O2 Delivery O2 Flow Rate FiO2 08/12/19 09:20 155/61 08/12/19 09:20 87 155/66 08/12/19 09:00 Room Air 08/12/19 08:00 99.0 87 16 155/66 (95) 95 08/12/19 04:00 98.2 81 18 135/84 (101) 96 08/12/19 01:00 Room Air 08/12/19 00:00 98.1 74 18 131/89 (103) 97 85 08/11/19 21:05 Room Air 08/11/19 20:00 97.7 74 18 137/73 (94) 96 08/11/19 16:00 98.7 89 18 134/64 (87) 90 08/11/19 12:00 64 08/11/19 12:00 98.1 70 18 132/80 (97) 98 Intake and Output 08/11/19 08/12/19 19:00 07:00 Intake Total 1985 ml Output Total 500 ml 1700 ml Balance -500 ml 285 ml Intake Oral 360 ml IV Total 1625 ml Output Urine Total 500 ml 1700 ml # Bowel Movements 3 Laboratory Tests Test 08/11/19 13:46 08/12/19 06:28 Arterial Blood pH 7.423 (7.350-7.450) Arterial Blood Partial Pressure CO2 32.9 mmHg (35.0-45.0) L Arterial Blood Partial Pressure O2 91.0 mmHg (75.0-100.0) Arterial Blood HCO3 21.0 mmol/L (22.0-26.0) L Arterial Blood Oxygen Saturation 97.0 % (95-100) Arterial Blood Base Excess -2.5 (-2-2) L Rojas Test Positive Sodium Level 140 MMOL/L (136-145) Potassium Level 4.2 MMOL/L (3.5-5.1) Chloride Level 105 MMOL/L (98-107) Carbon Dioxide Level 21 MMOL/L (21-32) Anion Gap 14 mmol/L (5-15) Blood Urea Nitrogen 46 mg/dL (7-18) H Creatinine 2.1 MG/DL (0.55-1.30) H Estimat Glomerular Filtration Rate mL/min (>60) Glucose Level 143 MG/DL (74-106) H Calcium Level 9.2 MG/DL (8.5-10.1) Objective HEAD AND NECK: No JVD. LUNGS: Clear. CARDIOVASCULAR: Regular S1 and S2 with no gallop or murmur. ABDOMEN: Soft and nontender. EXTREMITIES: No pitting edema. Lance Nichols MD Aug 12, 2019 11:00
--- NOTE | 2019-08-12 11:28 | Diagnostic Imaging Report ---
Indication: Altered level of consciousness Technique: sagittal T1 fast spin echo, axial T1 FLAIR, axial T2 FLAIR, axial T2 FS PROPELLER, axial T2* GRE, axial diffusion weighted images. ADC and exponential ADC maps generated Comparison: 08/05/2019 Findings: Again demonstrated are multiple areas of restricted diffusion within the posterior fossa, basal ganglia, and cerebral hemispheres. The vast majority of these were present on the previous exam. However, at least one new focus is seen in the posterior right frontal lobe at the tay-white junction. A new focus is seen in the posterior left parietal lobe adjacent to the posterior body of the left lateral ventricle. A new focus is seen in the right hippocampal region. A new focus is seen in the left cerebellar hemisphere and another new focus in the right cerebellar tonsil. No associated hemorrhage. The new cerebellar lesion is demonstrated subtle slightly increased T2 signal. Again demonstrated are a few scattered foci of susceptibility artifact in the left frontal deep white matter and in the bilateral temporal deep white matter. No mass effect nor midline shift. There is age-related enlargement of the ventricles and extra axial CSF spaces. Old lacunar infarcts again are seen in the bilateral basal ganglia, forest and in the left bilateral cerebellar hemispheres. There is extensive and fluid periventricular deep white matter high T2 signal again demonstrated. There is some ethmoid sinus mucosal disease. Visualized orbits are unremarkable. , A small amount fluid is seen in the mastoids bilaterally, right. The left Impression: Multiple foci of restricted diffusion, as described. Most of these were evident on prior study of 08/05/2019, indicating that these are residual subacute infarcts. However, there are a few new areas as detailed above, indicating lacunar infarcts that have occurred since the previous study There are a few scattered foci of susceptibility artifact, as described, in retrospect evident previously, consistent with prior microbleeds A few old lacunar infarcts are again demonstrated Other chronic and age-related changes, as described Minimal mastoid disease Critical value findings phoned to Dr. Head at the time of interpretation
[2019-08-12 12:00] VITALS: BP 123/59
--- NOTE | 2019-08-12 12:14 | NUR ---
Department of Health was called to inquire regarding patient's previous treatment for syphillis. Spoke to Linda, . She verbalized that there were no previous reports of the disease nor were there previous treatments reported to them.
--- NOTE | 2019-08-12 13:34 | NUR ---
CASE MANAGEMENT:REVIEW 08/12/19 SI: STAPH BACTEREMIA. MULTIPLE SMALL ACUTE INFARCTS (+) RPR (+) T.PALLIDUM 99.5 80 18 123/59 96% ON RA BUN+46 CR+2.1 BG 143 IS: IVF@125/HR HEPARIN SQ Q12 NORVASC PO BID HYDRALAZINE PO BID PROSCAR PO QD FLOMAX PO BID FOLATE PO QD URECHOLINE PO TID : TELEMETRY STATUS PLAN: LUMBAR PUNCTURE - R/O NEURO SYPHILIS
--- NOTE | 2019-08-12 13:45 | NUR ---
BOTTLE CLEANER PROGRESS NOTE PHUC attempted to call possible family/relative Regina Au [phone]. Call was not answered w/o vm option. Signed: 08/12/19 at 1346 by RUSSELL FRIEND <Co-Signature Required>
--- NOTE | 2019-08-12 14:42 | NUR ---
NURSE NOTES: ATTEMPTED TO RETURN CALL TO RADIOLOGY TO CONFIRM PROCEDURE TO BE DONE TODAY PER DR. SAUCEDO REQUEST; NO ANSWER WILL CONTINUE TO CALL. PATIENT INFORMED WELL DR. SAUCEDO.
--- NOTE | 2019-08-12 15:02 | Infectious Diseases Prog Note ---
Assessment/Plan Problems: (1) Positive RPR test Assessment & Plan: with low titer and reactive FTA-ABS , rule out neurosyphilis , will order LP with VDRL, cell count with deferentials, and CSF culture . TPPA serum also as per AMANDEEP recommendations . screening for HIV is negative . will consider starting penicillin empiric therapy after LP is done pending cell counts and VDRL . (2) CVA (cerebral vascular accident) Assessment & Plan: with multiple vascular emboli, rule out cardiogenic source, thrombotic VS [place] related vegetations. blood culture x 2 is negative , with negative JOHN, and RF screening , recommend LESA to better evaluate his valves . doesn't meet criteria for infectious endocarditis (3) CKD (chronic kidney disease) stage 3, GFR 30-59 ml/min Assessment & Plan: avoid nephrotoxics, close monitoring of renal function, follow up with nephrology (4) Failure to thrive in adult Assessment & Plan: etiology? dementia possibly, screening for HIV is negative , may need placement (5) Gait abnormality Assessment & Plan: PT/OT eval and possible placement (6) Encephalopathy acute Assessment & Plan: meds side effect , VS metabolic, recommend to hold seroquel and observe (7) Urinary retention Assessment & Plan: S/P dickson catheter placement , urology is following (8) Fever Assessment & Plan: will send blood culture x2 and obtain CXR to rule out aspiration pneumonia and send UA with culture Subjective Constitutional: Reports: no symptoms HEENT: Reports: no symptoms Respiratory: Reports: no symptoms Breasts: Reports: no symptoms Cardiovascular: Reports: no symptoms Gastrointestinal/Abdominal: Reports: no symptoms Genitourinary: Reports: no symptoms Neurologic: Reports: no symptoms Psychiatric: Reports: no symptoms Skin: Reports: no symptoms Endocrine: Reports: no symptoms Hematologic: Reports: no symptoms Musculoskeletal: Reports: no symptoms Allergies: Coded Allergies: No Known Allergies (Unverified , 07/21/19) Subjective He was comfortable, awake and alert, and more responsive today to verbal commands , no cough or SOB, no nausea or vomiting , no diarrhea , had Dickson catheter placed in on 08/11/19 Objective Vital Signs Last 24 Hour Vital Signs Date Time Temp Pulse Resp B/P (MAP) Pulse Ox O2 Delivery O2 Flow Rate FiO2 08/12/19 12:31 123/59 08/12/19 12:00 99.5 80 18 123/59 (80) 96 08/12/19 09:20 155/61 08/12/19 09:20 87 155/66 08/12/19 09:00 Room Air 08/12/19 08:00 99.0 87 16 155/66 (95) 95 08/12/19 04:00 98.2 81 18 135/84 (101) 96 08/12/19 01:00 Room Air 08/12/19 00:00 98.1 74 18 131/89 (103) 97 85 08/11/19 21:05 Room Air 08/11/19 20:00 97.7 74 18 137/73 (94) 96 08/11/19 16:00 98.7 89 18 134/64 (87) 90 Height (Feet): 5 Height (Inches): 5.00 Weight (Pounds): 176 General Appearance: WD/WN, no acute distress HEENT: normocephalic, atraumatic, anicteric, mucous membranes moist, PERRL, EOMI, pharynx normal, supple, no JVD Respiratory/Chest: chest wall non-tender, lungs clear, normal breath sounds, no respiratory distress, no accessory muscle use Cardiovascular: normal peripheral pulses, normal rate, regular rhythm, no gallop/murmur, no JVD Abdomen: normal bowel sounds, soft, non tender, no organomegaly, non distended , no mass, no scars Genitourinary: normal external genitalia Extremities: no cyanosis, no clubbing Skin: no rash, no lesions, no ulcers Neurologic/Psychiatric: pot liner II-XII grossly normal, alert, oriented x 3, responsive Lymphatic: no neck adenopathy, no groin adenopathy Musculoskeletal: normal muscle bulk, no effusion Laboratory Tests Test 08/12/19 06:28 Sodium Level 140 MMOL/L (136-145) Potassium Level 4.2 MMOL/L (3.5-5.1) Chloride Level 105 MMOL/L (98-107) Carbon Dioxide Level 21 MMOL/L (21-32) Anion Gap 14 mmol/L (5-15) Blood Urea Nitrogen 46 mg/dL (7-18) H Creatinine 2.1 MG/DL (0.55-1.30) H Estimat Glomerular Filtration Rate mL/min (>60) Glucose Level 143 MG/DL (74-106) H Calcium Level 9.2 MG/DL (8.5-10.1) Current Medications Medications (Trade) Dose Ordered Sig/Hanh Route PRN Reason Start Time Stop Time Status Last Admin Dose Admin Acetaminophen (Tylenol) 650 mg Q6H PRN ORAL Mild Pain/Temp > 100.5 08/06/19 23:45 09/05/19 23:44 08/08/19 20:37 Amlodipine Besylate (Norvasc) 10 mg BID ORAL 07/26/19 18:00 08/25/19 17:59 08/12/19 09:20 Bethanechol Chloride (Urecholine) 50 mg THREE TIMES A DAY ORAL 08/09/19 09:00 09/01/19 13:59 08/12/19 12:31 Bisacodyl (Dulcolax) 10 mg DAILYPRN PRN RECTAL Constipation 08/04/19 19:00 09/03/19 18:59 08/11/19 21:51 Clonidine HCl (Catapres TTS-3) 1 patch QWEEK TDERMAL 07/22/19 12:00 08/21/19 11:59 08/12/19 12:31 Clonidine HCl (Catapres Tab) 0.1 mg Q4H PRN ORAL sbp>170 08/06/19 18:15 09/05/19 18:14 Finasteride (Proscar) 5 mg DAILY ORAL 07/28/19 09:00 08/27/19 08:59 08/12/19 09:20 Folic Acid (Folate) 1 mg DAILY ORAL 08/06/19 09:00 09/05/19 08:59 08/12/19 09:20 Heparin Sodium (Porcine) (Heparin 5000 units/ml) 5,000 units EVERY 12 HOURS SUBQ 08/01/19 21:00 08/31/19 20:59 08/12/19 09:23 Hydralazine HCl (Apresoline) 100 mg BID ORAL 07/26/19 18:00 08/25/19 17:59 08/12/19 09:20 Quetiapine Fumarate (SEROqueL) 25 mg Q6H PRN ORAL For Anxiety 07/22/19 12:45 08/21/19 12:44 Sodium Chloride 1,000 ml @ 125 mls/hr Q8H IV 08/11/19 16:30 09/10/19 16:29 08/12/19 09:18 Tamsulosin HCl (Flomax) 0.4 mg BID ORAL 07/27/19 18:00 08/26/19 17:59 08/12/19 09:20 Anastasia Lion M.D. Aug 12, 2019 15:02
--- NOTE | 2019-08-12 15:06 | NUR ---
*-* INSURANCE *-* ALL AVAILABLE CLINICALS HAVE BEEN FAXED TO: [facility] OPAL:[employer] P: [phone] F: [phone]
--- NOTE | 2019-08-12 15:15 | NUR ---
NURSE NOTES: SPOKE TO RADIOLOGY. WILL CONSENT PATIENT. WILL BE PICKED UP FOR LP.
--- NOTE | 2019-08-12 15:40 | NUR ---
NURSE NOTES: ATTEMPTED TO CONSENT PATIENT FOR LUMBAR PUNCTURE BUT REFUSED TO SIGN. EXPLAINED PROCEDURE TO PT. PT. REQUESTED FOR NURSE TO CALL SISTERTENZIN TO EXPLAIN PROCEDURE TO HER BEFORE. UNFORTUNATELY, NO NUMBER LISTED FOR SISTER. PATIENT DOES NOT KNOW NUMBER. ONLY DAUGHTER LIVES IN .. BUT HAS AN ESTRANGED RELATIONSHIP WITH HER. PT STATES HE DOES NOT HAVE ANYONE THAT CHECKS ON HIM AT HOME AND DOES NOT SEE HIS SISTER. PLACED CALL TO DR. SAUCEDO TO INFORM OF SITUATION. MD TO SEE PT TO EXPLAIN PROCEDURE AND POSSIBLE SIGN CONSENT.
--- NOTE | 2019-08-12 15:50 | NUR ---
NURSE NOTES: DR. SAUCEDO AT PT. BEDSIDE. PROCEDURE EXPLAINED TO PATIENT. PATIENT SIGNED CONSENT AND WITNESSED BY DR. SAUCEDO.
[2019-08-12 16:00] VITALS: BP 160/71
--- NOTE | 2019-08-12 18:49 | Nephrology Progress Note ---
Assessment/Plan Problem List: (1) Hypertension, benign (2) Toxic metabolic encephalopathy (3) Gait abnormality (4) Rhabdomyolysis (5) JERMAINE (acute kidney injury) (6) Dehydration (7) Episode of generalized weakness (8) Bacteremia due to Staphylococcus (9) CKD (chronic kidney disease) stage 3, GFR 30-59 ml/min (10) Urinary retention Plan f/u lab, , mobilize, try to get coop to po meds lab trend better until 07/25 rise in creat , ckd3, renal US, mobilize, dickson placed as 800 ml residual , would keep dickson for one week, flomax and finasteride started, voiding trial so far bladder residual 350 08/02 then voided check again later, add urecholine, dickson was replaced renal function stable--recheck lab as prior afib , now nsr, bun/cr higher 08/07 I will increase iv rate, repeat 08/08 reviewed, can observe K, voiding trial again failed and dickson placed 08/08, bun and creatinine higher, restart iv fluid Subjective Constitutional: Reports: weakness HEENT: Reports: no symptoms Genitourinary: Reports: incontinence Neurologic/Psychiatric: Reports: pre-existing deficit Objective Objective Last 24 Hour Vital Signs Date Time Temp Pulse Resp B/P (MAP) Pulse Ox O2 Delivery O2 Flow Rate FiO2 08/12/19 17:30 160/71 08/12/19 17:30 95 160/71 08/12/19 16:00 98.8 95 16 160/71 (100) 96 08/12/19 12:31 123/59 08/12/19 12:00 99.5 80 18 123/59 (80) 96 08/12/19 09:20 155/61 08/12/19 09:20 87 155/66 08/12/19 09:00 Room Air 08/12/19 08:00 99.0 87 16 155/66 (95) 95 08/12/19 04:00 98.2 81 18 135/84 (101) 96 08/12/19 01:00 Room Air 08/12/19 00:00 98.1 74 18 131/89 (103) 97 85 08/11/19 21:05 Room Air 08/11/19 20:00 97.7 74 18 137/73 (94) 96 Intake and Output 08/11/19 08/12/19 19:00 07:00 Intake Total 1985 ml Output Total 500 ml 1700 ml Balance -500 ml 285 ml Intake Oral 360 ml IV Total 1625 ml Output Urine Total 500 ml 1700 ml # Bowel Movements 3 Laboratory Tests 08/12/19 06:28: Sodium Level 140, Potassium Level 4.2, Chloride Level 105, Carbon Dioxide Level 21, Anion Gap 14, Blood Urea Nitrogen 46H, Creatinine 2.1H, Estimat Glomerular Filtration Rate , Glucose Level 143H, Calcium Level 9.2 Height (Feet): 5 Height (Inches): 5.00 Weight (Pounds): 176 General Appearance: no apparent distress, confused EENT: normal ENT inspection Neck: normal alignment Cardiovascular: normal rate Respiratory/Chest: lungs clear Abdomen: non tender Neurologic: motor weakness Arthur Bethea MD Aug 12, 2019 18:49
--- NOTE | 2019-08-12 19:25 | NUR ---
HAND-OFF: Report given to JOJO MCGEE.
--- NOTE | 2019-08-12 19:47 | NUR ---
NURSE NOTES: Received patient in bed, awake, alert, oriented x3/4, can ambulate but with unsteady gate, IV site is clean dry and intact, call light is within reach, bed is lowered, locked and alarm is on. Will continue to monitor for comfort and safety.
[2019-08-12 20:00] VITALS: BP 146/70
--- NOTE | 2019-08-12 21:13 | Neurology Progress Note ---
Interim History Interim History Interim History Mr. Reji Au is a 79-year-old, right-handed, black gentleman, who has a relatively benign past history. He was brought to the hospital on 07/21/2019 after he had apparently fallen down and was on the floor of his apartment for 4 days. He himself has no recollection of what happened. Since he has been here he has been noted to have some gait problems. He was significantly altered with regards to his mental state and significantly aphasic yesterday. He has improved markedly today. He is able to understand the gravity of his illness and agrees to getting a LESA and lumbar puncture performed. He understands that there is something wrong with him but he cannot explain what exactly it is. Review of Systems Neuro Review of Systems Benign. Objective Physical Exam Last Vital Signs Date Time Temp Pulse Resp B/P (MAP) Pulse Ox O2 Delivery O2 Flow Rate FiO2 08/12/19 17:30 160/71 08/12/19 17:30 95 08/12/19 16:00 98.8 16 96 08/12/19 09:00 Room Air Laboratory Tests Test 08/12/19 06:28 Sodium Level 140 MMOL/L (136-145) Potassium Level 4.2 MMOL/L (3.5-5.1) Chloride Level 105 MMOL/L (98-107) Carbon Dioxide Level 21 MMOL/L (21-32) Anion Gap 14 mmol/L (5-15) Blood Urea Nitrogen 46 mg/dL (7-18) H Creatinine 2.1 MG/DL (0.55-1.30) H Estimat Glomerular Filtration Rate mL/min (>60) Glucose Level 143 MG/DL (74-106) H Calcium Level 9.2 MG/DL (8.5-10.1) Neurologic Exam Objective PHYSICAL EXAMINATION: GENERAL: He is a well-developed, relatively well-nourished, Black gentleman, lying in bed in no acute distress. HEAD: Normocephalic and atraumatic. NECK: No neck rigidity was observed. EENT examination: Benign. NEUROLOGICAL EXAMINATION: Mental status examination: He was awake and alert. He was oriented to self, hospital, and July 2019. He was able to recall 3/3 words immediately but could only remember 2/3 after 1 minute and 3 minutes on the second trial. He knew that Trump was president but could not remember presidents prior to [facility]. His mathematical skills were impaired. His visuospatial function was also impaired. Frontal systems tasks: Was unable to perform Luria's hand sequences. Speech: He had a mild dysarthria. Language: He had an anomic aphasia. Cranial nerve examination: II: The visual kang were intact on confrontation. III, IV & : The external ocular movements were full. The pupils were 3 mm in diameter and reactive sluggishly to light. V: He had normal facial sensations. The temporales, masseters, and pterygoids functioned well. VII: He had a trace right seventh central facial paresis. VIII: He was able to hear well and had no nystagmus. IX: The palate moves symmetrically on phonation. X: He had no hoarseness of voice. XI: The sternocleidomastoids and trapezii functioned. XII: The tongue was in the midline. Motor system: The tone was normal in all 4 extremities. Examination of muscle mass revealed no focal wasting. Examination of power revealed G 5/5 power in all muscle groups tested. Sensory examination: He was able to discern between pinprick and light touch all over his body. He had bilateral a graphesthesia. Reflexes: 2+ and bilaterally symmetrical at the biceps, triceps, brachioradialis and knees. 0 at both ankles. The plantar responses were flexor. Coordination: He performed well on [id number] and [id number] testing. Stance: Deferred. Gait: Deferred. Impression/Recommendations Diagnostic Impression DIAGNOSTIC IMPRESSION: 1. Mr. Reji Au is a 79-year-old, right-handed, black gentleman, who has a relatively benign past history. He was brought to the hospital on 07/21/2019 after he had apparently fallen down and was on the floor of his apartment for 4 days. He himself has no recollection of what happened. Since he has been here he has been noted to have some gait problems. 2. He was significantly altered with regards to his mental state and significantly aphasic yesterday. He has improved markedly today. He is able to understand the gravity of his illness and agrees to getting a LESA and lumbar puncture performed. He understands that there is something wrong with him but he cannot explain what exactly it is. 3. On neurological examination, at this time, he is disoriented to the name of the hospital and the exact date. He has problems with recent and remote memory , visual-spatial function, higher cognitive function, and language. He also exhibits significant bilateral frontal systems dysfunction. He also has a trace right seventh central facial paresis. He however does not demonstrate any lateralizing findings on his motor sensory or reflex examination. 4. Laboratory data on my initial evaluation revealed that he was anemic with a hemoglobin of 11.5 G. His latest BUN was 42 and latest creatinine is 2.3. When he came in his CK was 2257 and it had normalized to 241. He was folic acid deficient with a folic acid level of 7.5. His RPR was positive in a low titre of 1:1. The FTA-ABS is pending. 5. The MRI scan of the brain performed on 08/05/2019 revealed multiple acute infarcts involving both cerebral hemispheres, basal ganglia, and the left cerebellum. In addition multiple old small infarcts scattered in the brain were also seen. 6. The MRI scan of the brain repeated on 08/12/2019 revealed multiple new acute infarctions in multiple different vascular territories. 7. A CT of the brain done today reveals atrophy, deep white matter changes and old infarcts but no acute pathology. 8. Thus far cardiac monitoring has revealed no arrhythmia. 9. The patient's history, neurological examination, laboratory data, and imaging studies, most consistent with multiple showers of emboli to the brain over multiple different time periods. Leading to significant neurological dysfunction. 10. Patient also has a positive peripheral RPR and FTA-ABS. This is indicative of exposure to syphilis. Neurosyphilis should be excluded. Recommendations RECOMMENDATIONS: 1. Continue present management. 2. Transesophageal echocardiogram with bubble study should be performed to evaluate the patient for cardiogenic source of emboli. 3. Agree with obtaining a lumbar puncture to evaluate the patient for neurosyphilis. 4. The patient is neurologically capable of giving consent for medical procedures. 5. Continue physical and occupational therapy to mobilize patient. 6. Folic acid 1 mg daily for folate deficiency. 7. Observe closely. Beka Smith M.D., M.S.P.H. Neurologist & Clinical Neurophysiologist Beka Smith MD Aug 12, 2019 21:13
[2019-08-13] VITALS (7 sets, daily range): BP systolic 112–176; BP diastolic 57–78
--- NOTE | 2019-08-13 03:30 | Progress Note ---
DATE: 08/13/2019 SUBJECTIVE: The patient in no acute distress. The patient is more alert today. He was able to answer the questions of anxiety. MENTAL STATUS EXAMINATION: The patient is alert and oriented times self, place, and situation. Mood is episodes of anxiety. Affect is flat. Thought process, there is a paucity of thought content. Thought content, no suicidal or homicidal ideation. Cognition is impaired. Insight and judgment is fair. ASSESSMENT: 1. Cognitive impairment. 2. Anxiety disorder. PLAN: We will continue current medication. We will continue to follow. Nury Mandel M.D. DR: CAL JOB#: [id number] CC: THU
[2019-08-13 06:08] LABS: ANION GAP 14 mmol/L (5-15); BLOOD UREA NITROGEN 39 mg/dL (7-18); CALCIUM 9.1 MG/DL (8.5-10.1); CARBON DIOXIDE 22 MMOL/L (21-32); CHLORIDE 106 MMOL/L (98-107); CREATININE 2.2 MG/DL (0.55-1.30); POTASSIUM 4.3 MMOL/L (3.5-5.1); SODIUM 141 MMOL/L (136-145)
--- NOTE | 2019-08-13 07:20 | NUR ---
HAND-OFF: Report given to Shira JIMENEZ.
--- NOTE | 2019-08-13 07:30 | NUR ---
NURSE NOTES: Received patient in bed, lethargic. Arousable by painful stimuli. V/S taken and medicated with clonidine 0.1mg for sbp>170. temp. 102. applied cooling measures. O2 2L via NC patient desat to 88% RA. IV site is patent and intact, Kept HOB elevated for aspiration precautions. Will notify ID and cardio on the case. call light is within reach, bed is lowered, locked and alarm is on. Will continue to monitor.
--- NOTE | 2019-08-13 08:08 | Urology Progress Note ---
Assessment/Plan Assessment/Plan: 1. Urinary retention. 2. BPH history. 3. Probable neurogenic bladder. 4. Renal insufficiency acute on chronic. 5. Hematuria. dickson remains indwelling for now, replaced 08/11 hand irrigated and do PRN cont with flomax, proscar urecholine dose increased minimize seroquel repeat voiding trial later, once more alert and ambulatory cysto later Subjective Allergies: Coded Allergies: No Known Allergies (Unverified , 07/21/19) Subjective all noted, no new complaints, dickson indwelling Objective Last 24 Hour Vital Signs Date Time Temp Pulse Resp B/P (MAP) Pulse Ox O2 Delivery O2 Flow Rate FiO2 08/13/19 07:43 176/74 08/13/19 06:02 99.6 08/13/19 04:00 99.6 89 18 149/78 (101) 97 08/13/19 00:00 100.0 83 17 149/74 (99) 98 08/12/19 21:21 Room Air 08/12/19 20:00 99.5 96 18 146/70 (95) 95 08/12/19 17:30 160/71 08/12/19 17:30 95 160/71 08/12/19 16:00 98.8 95 16 160/71 (100) 96 08/12/19 12:31 123/59 08/12/19 12:00 99.5 80 18 123/59 (80) 96 08/12/19 09:20 155/61 08/12/19 09:20 87 155/66 08/12/19 09:00 Room Air Intake and Output 08/12/19 08/13/19 19:00 07:00 Intake Total 1667.5 ml 240 ml Output Total 2025 ml Balance 1667.5 ml -1785 ml Intake Oral 480 ml 240 ml IV Total 1187.5 ml Output Urine Total 2025 ml # Voids 1 # Bowel Movements 1 Microbiology Date/Time Source Procedure Growth Status 08/06/19 21:30 Blood Blood Culture - Final NO GROWTH AFTER 5 DAYS Complete 07/21/19 17:35 Nasal Nares - Final Complete 07/21/19 17:35 Nasal Nares - Final Complete 08/08/19 09:30 Indwelling Cath Urine Culture - Final NO GROWTH AFTER 48 HOURS Complete Current Medications Medications (Trade) Dose Ordered Sig/Hanh Route PRN Reason Start Time Stop Time Status Last Admin Dose Admin Acetaminophen (Tylenol) 650 mg Q6H PRN ORAL Mild Pain/Temp > 100.5 08/06/19 23:45 09/05/19 23:44 08/13/19 05:26 Amlodipine Besylate (Norvasc) 10 mg BID ORAL 07/26/19 18:00 08/25/19 17:59 08/12/19 17:30 Bethanechol Chloride (Urecholine) 50 mg THREE TIMES A DAY ORAL 08/09/19 09:00 09/01/19 13:59 08/12/19 17:30 Bisacodyl (Dulcolax) 10 mg DAILYPRN PRN RECTAL Constipation 08/04/19 19:00 09/03/19 18:59 08/11/19 21:51 Clonidine HCl (Catapres TTS-3) 1 patch QWEEK TDERMAL 07/22/19 12:00 08/21/19 11:59 08/12/19 12:31 Clonidine HCl (Catapres Tab) 0.1 mg Q4H PRN ORAL sbp>170 08/06/19 18:15 09/05/19 18:14 08/13/19 07:43 Finasteride (Proscar) 5 mg DAILY ORAL 07/28/19 09:00 08/27/19 08:59 08/12/19 09:20 Folic Acid (Folate) 1 mg DAILY ORAL 08/06/19 09:00 09/05/19 08:59 08/12/19 09:20 Heparin Sodium (Porcine) (Heparin 5000 units/ml) 5,000 units EVERY 12 HOURS SUBQ 08/01/19 21:00 08/31/19 20:59 08/12/19 20:22 Hydralazine HCl (Apresoline) 100 mg BID ORAL 07/26/19 18:00 08/25/19 17:59 08/12/19 17:30 Quetiapine Fumarate (SEROqueL) 25 mg Q6H PRN ORAL For Anxiety 07/22/19 12:45 08/21/19 12:44 Sodium Chloride 1,000 ml @ 75 mls/hr [id number] IV 08/12/19 18:51 09/11/19 18:50 08/12/19 20:21 Tamsulosin HCl (Flomax) 0.4 mg BID ORAL 07/27/19 18:00 08/26/19 17:59 08/12/19 17:30 Laboratory Tests 08/13/19 04:50: Sodium Level 141, Potassium Level 4.3, Chloride Level 106, Carbon Dioxide Level 22, Anion Gap 14, Blood Urea Nitrogen 39H, Creatinine 2.2H, Estimat Glomerular Filtration Rate , Glucose Level 117H, Calcium Level 9.1 Height (Feet): 5 Height (Inches): 5.00 Weight (Pounds): 176 Objective exam stable dickson indwelling Kali Serrano MD Aug 13, 2019 08:08
[2019-08-13] MEDS: Bethanechol 25mg Tab ORAL SCH ×3 (08:52→17:10)
[2019-08-13] MEDS: HydrALAZINE 50mg tab ORAL SCH ×2 (08:52→17:09)
[2019-08-13] MEDS: Tamsulosin 0.4mg cap ORAL SCH ×2 (08:53→17:10)
[2019-08-13] MEDS: Heparin 5000 units/ml inj SUBQ SCH ×2 (08:54→20:21)
[2019-08-13] MEDS ORDERED: Piperacillin/Tazobactam 3.375 GM in NS 110 ML IVPB SCH (09:00)
--- NOTE | 2019-08-13 09:32 | NUR ---
NURSE NOTES: Informed Dr Lion of the temp this am of 102. applied cooling measures. not able to give acetaminophen due to was administered @ 0530 by francis agrawal RN. new ordered made by ID. Dr Nichols also informed of the current SBP after clonidine 0.1 mg given. patient remained nonverbal yet responding and eating with assist. will cont to monitor. Addendum: 08/13/19 at 0951 by KEYA PAGAN LVN new order obtained.
--- NOTE | 2019-08-13 10:00 | NUR ---
NURSE NOTES: clonidine 0.2mg po given for . able to take po. will cont to monitor.
--- NOTE | 2019-08-13 11:17 | NUR ---
NURSE NOTES: urine sample sent for u/a.
--- NOTE | 2019-08-13 11:19 | NUR ---
NURSE NOTES: drsg optifoam placed on sacral and carrie heels as prophylactic. reposition and will cont to monitor.
[2019-08-13 11:24] LABS: APPEARANCE,URINE CLOUDY; BILIRUBIN, URINE NEGATIVE (NEGATIVE); COLOR,URINE PALE YELLOW; GLUCOSE, URINE (UA) NEGATIVE (NEGATIVE); KETONES,URINE NEGATIVE (NEGATIVE); LEUKOCYTE ESTERASE ,URINE 3+ (NEGATIVE); NITRITE,URINE NEGATIVE (NEGATIVE); PH,URINE 5 (4.5-8.0); PROTEIN,URINE 2+ (NEGATIVE); UROBILINOGEN,URINE NORMAL MG/DL (0.0-1.0)
--- NOTE | 2019-08-13 12:55 | Pulmonology Progress Note ---
Assessment/Plan Problems: (1) Rhabdomyolysis (2) JERMAINE (acute kidney injury) (3) Dehydration (4) Episode of generalized weakness (5) Weakness (6) Gait abnormality (7) Failure to thrive in adult (8) Hypertension, benign (9) Toxic metabolic encephalopathy (10) Bacteremia due to Staphylococcus (11) Positive RPR test (12) CVA (cerebral vascular accident) Assessment/Plan Assessment/Plan 1. Acute and chronic CVA, likely embolic 2. AMS, 2/2 above 3. Positive RPR & FTA, ? neurosyphilis 4. Dehydration/rhabdomyolysis/lactic acidosis - RESOLVED 5. Hyperproteinemia, possible myeloma 6. Hypertension - POORLY CONTROLLED 7. JERMAINE vs CKD, likely both 8. Obstructive uropathy 9. Generalized weakness 10. Anemia, FOBT neg PLAN: F/u LESA - per neuro patient has capacity to consent Cardiology recs D/W neuro and cards, will hold off on AC until etiology of CVA determined F/U neuro recs and w/u F/U ID recs, will d/w IR why LP not done, Zyvox/Zosyn per ID F/U renal recs and w/u F/U recs, continue FC for now Needs age appropriate malignancy screening and primary care as an outpatient Monitor HH, FOBT neg, F/U UPEP (still pending!) BP control PT/OT DVT Px: Hep SQ Dispo planning to SNF once acute issues resolved Subjective Allergies: Coded Allergies: No Known Allergies (Unverified , 07/21/19) Subjective Tm 102.4 BP elevated started on Zyvox/Zosyn LP not done 2/2 positioning? Per neuro has capacity to consent for LESA No cough no SOB no CP Repeat MRI with new CVA's Objective Last 24 Hour Vital Signs Date Time Temp Pulse Resp B/P (MAP) Pulse Ox O2 Delivery O2 Flow Rate FiO2 08/13/19 12:00 99.4 93 22 143/73 (96) 98 08/13/19 09:56 181/77 08/13/19 09:00 99.8 08/13/19 08:52 176/74 08/13/19 08:52 109 176/74 08/13/19 08:00 102.4 109 22 176/74 (108) 94 08/13/19 07:43 176/74 08/13/19 06:02 99.6 08/13/19 04:00 99.6 89 18 149/78 (101) 97 08/13/19 00:00 100.0 83 17 149/74 (99) 98 08/12/19 21:21 Room Air 08/12/19 20:00 99.5 96 18 146/70 (95) 95 08/12/19 17:30 160/71 08/12/19 17:30 95 160/71 08/12/19 16:00 98.8 95 16 160/71 (100) 96 Intake and Output 08/12/19 08/13/19 19:00 07:00 Intake Total 1667.5 ml 240 ml Output Total 2025 ml Balance 1667.5 ml -1785 ml Intake Oral 480 ml 240 ml IV Total 1187.5 ml Output Urine Total 2025 ml # Voids 1 # Bowel Movements 1 General Appearance: no acute distress, cachetic HEENT: normocephalic, atraumatic, anicteric, mucous membranes moist Respiratory/Chest: chest wall non-tender, lungs clear, normal breath sounds, no respiratory distress, no accessory muscle use Cardiovascular: normal peripheral pulses, normal rate, regular rhythm Abdomen: normal bowel sounds, soft, non tender, no organomegaly, non distended , no mass Extremities: no cyanosis, no clubbing, no edema Laboratory Tests 08/13/19 04:50: Sodium Level 141, Potassium Level 4.3, Chloride Level 106, Carbon Dioxide Level 22, Anion Gap 14, Blood Urea Nitrogen 39H, Creatinine 2.2H, Estimat Glomerular Filtration Rate , Glucose Level 117H, Calcium Level 9.1 08/13/19 11:10: Urine Color Pale yellow, Urine Appearance Cloudy, Urine pH 5, Urine Specific [place] 1.015, Urine Protein 2+H, Urine Glucose (UA) Negative, Urine Ketones Negative, Urine Blood 3+H, Urine Nitrite Negative, Urine Bilirubin Negative, Urine Urobilinogen Normal, Urine Leukocyte Esterase 3+H, Urine RBC 5-10H, Urine WBC TntcH, Urine Squamous Epithelial Cells Few, Urine Bacteria ModerateH Current Medications Medications (Trade) Dose Ordered Sig/Hanh Route PRN Reason Start Time Stop Time Status Last Admin Dose Admin Acetaminophen (Tylenol) 650 mg Q6H PRN ORAL Mild Pain/Temp > 100.5 08/06/19 23:45 09/05/19 23:44 08/13/19 05:26 Amlodipine Besylate (Norvasc) 10 mg BID ORAL 07/26/19 18:00 08/25/19 17:59 08/13/19 08:52 Bethanechol Chloride (Urecholine) 50 mg THREE TIMES A DAY ORAL 08/09/19 09:00 09/01/19 13:59 08/13/19 12:17 Bisacodyl (Dulcolax) 10 mg DAILYPRN PRN RECTAL Constipation 08/04/19 19:00 09/03/19 18:59 08/11/19 21:51 Clonidine HCl (Catapres TTS-3) 1 patch QWEEK TDERMAL 07/22/19 12:00 08/21/19 11:59 08/12/19 12:31 Clonidine HCl (Catapres Tab) 0.2 mg Q2H PRN ORAL sbp>170 08/13/19 10:00 09/12/19 09:59 08/13/19 09:56 Finasteride (Proscar) 5 mg DAILY ORAL 07/28/19 09:00 08/27/19 08:59 08/13/19 08:53 Folic Acid (Folate) 1 mg DAILY ORAL 08/06/19 09:00 09/05/19 08:59 08/13/19 08:52 Heparin Sodium (Porcine) (Heparin 5000 units/ml) 5,000 units EVERY 12 HOURS SUBQ 08/01/19 21:00 08/31/19 20:59 08/13/19 08:54 Hydralazine HCl (Apresoline) 100 mg BID ORAL 07/26/19 18:00 08/25/19 17:59 08/13/19 08:52 Linezolid 300 ml @ 300 mls/hr Q12HR IVPB 08/13/19 09:00 08/20/19 08:59 08/13/19 09:49 Piperacillin Sod/ Tazobactam Sod 3.375 gm/Sodium Chloride 110 ml @ 27.5 mls/hr Q8H IVPB 08/13/19 09:00 08/20/19 08:59 08/13/19 10:07 Quetiapine Fumarate (SEROqueL) 25 mg Q6H PRN ORAL For Anxiety 07/22/19 12:45 08/21/19 12:44 Sodium Chloride 1,000 ml @ 75 mls/hr [id number] IV 08/12/19 18:51 09/11/19 18:50 08/13/19 08:53 Tamsulosin HCl (Flomax) 0.4 mg BID ORAL 07/27/19 18:00 08/26/19 17:59 08/13/19 08:53 Shiraz Cervantes MD Aug 13, 2019 12:55
--- NOTE | 2019-08-13 13:24 | NUR ---
NURSE NOTES: Dr Camarillo made aware of the change in condition of patient this am. Called Cardiology dept re: EET. awaits for a call back from
--- NOTE | 2019-08-13 13:52 | NUR ---
NURSE NOTES: Dr Cervantes and Dr Lion made aware of the LP not being done due to patient not able to lie on his stomach per Edward in Radiology.
--- NOTE | 2019-08-13 13:58 | Diagnostic Imaging Report ---
Indication: Cough Comparison: 07/21/2019 A single view chest radiograph was obtained. Findings: No definite infiltrate or pulmonary vascular congestion identified. The heart is enlarged. The aorta is mildly enlarged consistent with atherosclerotic vascular disease. No interval change appreciated. Impression: No acute disease
--- NOTE | 2019-08-13 14:03 | NUR ---
DISCHARGE PLANNING: SPOKE TO HCP (DON) PATIENT HAS BEEN ACCEPTED TO [facility] ([place]) ROOM# 232 B SKILLED WAITING FOR DISCHARGE ORDER
--- NOTE | 2019-08-13 14:05 | NUR ---
CASE MANAGEMENT:REVIEW 08/13/19 SI: STAPH BACTEREMIA. MULTIPLE SMALL ACUTE INFARCTS (+) RPR (+) T.PALLIDUM 102.4 109 22 176/74 94% ON RA BUN+39 CR+2.2 BG 117 IS: IV ZOSYN Q8HR IV LINEZOLID BID IVF NS@75/HR HEPARIN SQ Q12 NORVASC PO BID PROSCAR PO QD FLOMAX PO BID FOLATE PO QD URECHOLINE PO TID CATAPRES TD QWK : TELEMETRY STATUS PLAN: LUMBAR PUNCTURE - R/O NEURO SYPHILIS (ON HOLD D/T PATIENT UNABLE TO LETHARGIC) PATIENT VERY LETHARGIC - MAY TRANSFER TO TELE PLACEMENT ESTABLISHED AT [facility]
--- NOTE | 2019-08-13 14:20 | NUR ---
*-* INSURANCE *-* UPDATE CLINICALS HAVE BEEN FAXED TO: [facility] OPAL:[employer] P: [phone] F: [phone]
--- NOTE | 2019-08-13 14:21 | NUR ---
DISCHARGE PLANNING: SPOKE TO HCP (DON) PATIENT HAS BEEN ACCEPTED TO [facility] ([place]) ROOM# 232 B SKILLED WAITING FOR DISCHARGE ORDER
--- NOTE | 2019-08-13 14:50 | NUR ---
HAND-OFF: Report given to Moi.
--- NOTE | 2019-08-13 14:50 | NUR ---
NURSE NOTES: transferred to tele. report given to ARELY Prater. personal belongings noted. patient is on O2 2L via NC. last BP 123/57, HR 84 and temp 99.6 taken and recorded. Patient is arousable by tactile stimuli. Kept hob elevated. will cont to monitor.
--- NOTE | 2019-08-13 15:00 | NUR ---
NURSE NOTES: received pt drowsy, but resistant upon turning patient to the right side for assessment of his back. still drowsy. call light within reach. bed in lowest position, locked. will monitor.
[2019-08-13] MEDS ORDERED: cloNIDine 0.2mg Tab ORAL PRN (15:24)
--- NOTE | 2019-08-13 15:34 | Infectious Diseases Prog Note ---
Assessment/Plan Problems: (1) Fever Assessment & Plan: source ? rule out sepsis VS CAUTI , CXR is negative for any infiltrates, will start zosyn and zyvox empirically and order another blood culture x2 , send UA with culture (2) Positive RPR test Assessment & Plan: with low titer and reactive FTA-ABS , rule out neurosyphilis , LP was NOT done today since he was altered , and not following commands . TPPA serum is pending also as per AMANDEEP recommendations . screening for HIV is negative . already started on zosyn for possible sepsis /CAUTI (3) CVA (cerebral vascular accident) Assessment & Plan: recurrent , with multiple vascular emboli, rule out cardiogenic source, thrombotic VS [place] related vegetations. blood culture x 2 is negative , with negative JOHN, and RF screening , recommend LESA to better evaluate his valves . doesn't meet criteria for infectious endocarditis (4) CKD (chronic kidney disease) stage 3, GFR 30-59 ml/min Assessment & Plan: avoid nephrotoxics, close monitoring of renal function, follow up with nephrology (5) Failure to thrive in adult Assessment & Plan: etiology? dementia possibly, screening for HIV is negative , may need placement (6) Gait abnormality Assessment & Plan: PT/OT eval and possible placement (7) Encephalopathy acute Assessment & Plan: recurrent CVA, VS meds side effect , VS metabolic. already on wide spectrum antibiotics . LP was not done today (8) Urinary retention Assessment & Plan: S/P dickson catheter placement , urology is following Subjective ROS Limited/Unobtainable: Yes Allergies: Coded Allergies: No Known Allergies (Unverified , 07/21/19) Subjective He was comfortable, lying in bed, altered and not responsive to verbal commands or stimuli , no cough or SOB, no nausea or vomiting , no diarrhea , NO LP was done since he was altered and not following commands . had Dickson catheter placed in on 08/11/19 Objective Vital Signs Last 24 Hour Vital Signs Date Time Temp Pulse Resp B/P (MAP) Pulse Ox O2 Delivery O2 Flow Rate FiO2 08/13/19 15:26 98.1 77 112/57 (75) 08/13/19 15:23 Room Air 08/13/19 13:49 84 123/57 (79) 08/13/19 12:00 99.4 93 22 143/73 (96) 98 08/13/19 09:56 181/77 08/13/19 09:00 99.8 08/13/19 08:52 176/74 08/13/19 08:52 109 176/74 08/13/19 08:00 102.4 109 22 176/74 (108) 94 08/13/19 07:43 176/74 08/13/19 06:02 99.6 08/13/19 04:00 99.6 89 18 149/78 (101) 97 08/13/19 00:00 100.0 83 17 149/74 (99) 98 08/12/19 21:21 Room Air 08/12/19 20:00 99.5 96 18 146/70 (95) 95 08/12/19 17:30 160/71 08/12/19 17:30 95 160/71 08/12/19 16:00 98.8 95 16 160/71 (100) 96 Height (Feet): 5 Height (Inches): 5.00 Weight (Pounds): 176 General Appearance: WD/WN, no acute distress, other - altered HEENT: normocephalic, atraumatic, anicteric, PERRL, supple, no JVD Respiratory/Chest: chest wall non-tender, normal breath sounds, no respiratory distress, no accessory muscle use, decreased breath sounds Cardiovascular: normal peripheral pulses, normal rate, regular rhythm, no gallop/murmur, no JVD Abdomen: normal bowel sounds, soft, non tender, no organomegaly, non distended , no mass, no scars Genitourinary: normal external genitalia Extremities: no cyanosis, no clubbing Skin: no rash, no lesions, no ulcers Neurologic/Psychiatric: unresponsiveness Lymphatic: no neck adenopathy, no groin adenopathy Musculoskeletal: normal muscle bulk, no effusion Laboratory Tests Test 08/13/19 04:50 08/13/19 11:10 Sodium Level 141 MMOL/L (136-145) Potassium Level 4.3 MMOL/L (3.5-5.1) Chloride Level 106 MMOL/L (98-107) Carbon Dioxide Level 22 MMOL/L (21-32) Anion Gap 14 mmol/L (5-15) Blood Urea Nitrogen 39 mg/dL (7-18) H Creatinine 2.2 MG/DL (0.55-1.30) H Estimat Glomerular Filtration Rate mL/min (>60) Glucose Level 117 MG/DL (74-106) H Calcium Level 9.1 MG/DL (8.5-10.1) Urine Color Pale yellow Urine Appearance Cloudy Urine pH 5 (4.5-8.0) Urine Specific [place] 1.015 (1.005-1.035) Urine Protein 2+ (NEGATIVE) H Urine Glucose (UA) Negative (NEGATIVE) Urine Ketones Negative (NEGATIVE) Urine Blood 3+ (NEGATIVE) H Urine Nitrite Negative (NEGATIVE) Urine Bilirubin Negative (NEGATIVE) Urine Urobilinogen Normal MG/DL (0.0-1.0) Urine Leukocyte Esterase 3+ (NEGATIVE) H Urine RBC 5-10 /HPF (0 - 0) H Urine WBC Tntc /HPF (0 - 0) H Urine Squamous Epithelial Cells Few /LPF (NONE/OCC) Urine Bacteria Moderate /HPF (NONE) H Current Medications Medications (Trade) Dose Ordered Sig/Hanh Route PRN Reason Start Time Stop Time Status Last Admin Dose Admin Acetaminophen (Tylenol) 650 mg Q6H PRN ORAL Mild Pain/Temp > 100.5 08/13/19 15:23 09/12/19 15:22 Amlodipine Besylate (Norvasc) 10 mg BID ORAL 08/13/19 18:00 08/25/19 17:59 Bethanechol Chloride (Urecholine) 50 mg THREE TIMES A DAY ORAL 08/13/19 18:00 09/01/19 13:59 Bisacodyl (Dulcolax) 10 mg DAILYPRN PRN RECTAL Constipation 08/13/19 15:23 09/12/19 15:22 Clonidine HCl (Catapres TTS-3) 1 patch QWEEK TDERMAL 08/19/19 12:00 08/21/19 11:59 Clonidine HCl (Catapres tab) 0.2 mg Q2H PRN ORAL sbp>170 08/13/19 15:24 09/12/19 15:23 Finasteride (Proscar) 5 mg DAILY ORAL 08/14/19 09:00 08/27/19 08:59 Folic Acid (Folate) 1 mg DAILY ORAL 08/14/19 09:00 09/05/19 08:59 Heparin Sodium (Porcine) (Heparin 5000 units/ml) 5,000 units EVERY 12 HOURS SUBQ 08/13/19 21:00 08/31/19 20:59 Hydralazine HCl (Apresoline) 100 mg BID ORAL 08/13/19 18:00 08/25/19 17:59 Linezolid 300 ml @ 300 mls/hr Q12HR IVPB 08/13/19 21:00 08/20/19 08:59 Piperacillin Sod/ Tazobactam Sod 3.375 gm/Sodium Chloride 110 ml @ 27.5 mls/hr Q8H IVPB 08/13/19 17:00 08/20/19 08:59 Quetiapine Fumarate (SEROqueL) 25 mg Q6H PRN ORAL For Anxiety 08/13/19 15:24 09/12/19 15:23 Sodium Chloride 1,000 ml @ 75 mls/hr [id number] IV 08/13/19 15:30 09/11/19 18:50 Tamsulosin HCl (Flomax) 0.4 mg BID ORAL 08/13/19 18:00 08/26/19 17:59 Anastasia Lion M.D. Aug 13, 2019 15:34
--- NOTE | 2019-08-13 15:47 | Cardiac Electrophysiology PN ---
Assessment/Plan Status Narrative MRI Brain: Multiple foci of restricted diffusion, as described. Most of these were evident on prior study of 08/05/2019, indicating that these are residual subacute infarcts. However, there are a few new areas as detailed above, indicating lacunar infarcts that have occurred since the previous study Assessment/Plan 1. 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 EF 60%. LESA still pending Off anticoagulation to prevent hemorrhagic conversion of CVA until cleared by Neurology.Remained in SR on tele. MRI brain noted 2. Hypertension. Continue Norvasc 10 mg b.i.d., hydralazine 100 mg b.i.d., clonidine patch weekly and p.r.n. clonidine 3. Benign prostatic hypertrophy on Flomax and Proscar. 4. Dementia, on Seroquel per Dr. Mandel. 5. Acute rhabdomyolysis. 6. Staph bacteremia.On Abx 7. Stage 3 chronic kidney disease. 8. Positive RPR, FTA-ABS pending 9. AMS. ?due to CVA. RAUL RN and the therapist Subjective Subjective Transferred to tele as was poorly responsive on the floor. Objective Last 24 Hour Vital Signs Date Time Temp Pulse Resp B/P (MAP) Pulse Ox O2 Delivery O2 Flow Rate FiO2 08/13/19 15:26 98.1 77 112/57 (75) 08/13/19 15:23 Room Air 08/13/19 13:49 84 123/57 (79) 08/13/19 12:00 99.4 93 22 143/73 (96) 98 08/13/19 09:56 181/77 08/13/19 09:00 99.8 08/13/19 08:52 176/74 08/13/19 08:52 109 176/74 08/13/19 08:00 102.4 109 22 176/74 (108) 94 08/13/19 07:43 176/74 08/13/19 06:02 99.6 08/13/19 04:00 99.6 89 18 149/78 (101) 97 08/13/19 00:00 100.0 83 17 149/74 (99) 98 08/12/19 21:21 Room Air 08/12/19 20:00 99.5 96 18 146/70 (95) 95 08/12/19 17:30 160/71 08/12/19 17:30 95 160/71 08/12/19 16:00 98.8 95 16 160/71 (100) 96 Intake and Output 08/12/19 08/13/19 19:00 07:00 Intake Total 1667.5 ml 240 ml Output Total 2025 ml Balance 1667.5 ml -1785 ml Intake Oral 480 ml 240 ml IV Total 1187.5 ml Output Urine Total 2025 ml # Voids 1 # Bowel Movements 1 Laboratory Tests Test 08/13/19 04:50 08/13/19 11:10 Sodium Level 141 MMOL/L (136-145) Potassium Level 4.3 MMOL/L (3.5-5.1) Chloride Level 106 MMOL/L (98-107) Carbon Dioxide Level 22 MMOL/L (21-32) Anion Gap 14 mmol/L (5-15) Blood Urea Nitrogen 39 mg/dL (7-18) H Creatinine 2.2 MG/DL (0.55-1.30) H Estimat Glomerular Filtration Rate mL/min (>60) Glucose Level 117 MG/DL (74-106) H Calcium Level 9.1 MG/DL (8.5-10.1) Urine Color Pale yellow Urine Appearance Cloudy Urine pH 5 (4.5-8.0) Urine Specific [place] 1.015 (1.005-1.035) Urine Protein 2+ (NEGATIVE) H Urine Glucose (UA) Negative (NEGATIVE) Urine Ketones Negative (NEGATIVE) Urine Blood 3+ (NEGATIVE) H Urine Nitrite Negative (NEGATIVE) Urine Bilirubin Negative (NEGATIVE) Urine Urobilinogen Normal MG/DL (0.0-1.0) Urine Leukocyte Esterase 3+ (NEGATIVE) H Urine RBC 5-10 /HPF (0 - 0) H Urine WBC Tntc /HPF (0 - 0) H Urine Squamous Epithelial Cells Few /LPF (NONE/OCC) Urine Bacteria Moderate /HPF (NONE) H Objective HEAD AND NECK: No JVD. LUNGS: Clear. CARDIOVASCULAR: Regular S1 and S2 with no gallop or murmur. ABDOMEN: Soft and nontender. EXTREMITIES: No pitting edema. Lance Nichols MD Aug 13, 2019 15:47
--- NOTE | 2019-08-13 17:17 | Nephrology Progress Note ---
Assessment/Plan Problem List: (1) Hypertension, benign (2) Toxic metabolic encephalopathy (3) Gait abnormality (4) Rhabdomyolysis (5) JERMAINE (acute kidney injury) (6) Dehydration (7) Episode of generalized weakness (8) Bacteremia due to Staphylococcus (9) CKD (chronic kidney disease) stage 3, GFR 30-59 ml/min (10) Urinary retention Plan f/u lab, , mobilize, try to get coop to po meds lab trend better until 07/25 rise in creat , ckd3, renal US, mobilize, dickson placed as 800 ml residual , would keep dickson for one week, flomax and finasteride started, voiding trial so far bladder residual 350 08/02 then voided check again later, add urecholine, dickson was replaced renal function stable--recheck lab as prior afib , now nsr, bun/cr higher 08/07 I will increase iv rate, repeat 08/08 reviewed, can observe K, voiding trial again failed and dickson placed 08/08, bun and creatinine higher, restart iv fluid improving Subjective ROS Limited/Unobtainable: Yes Objective Objective Last 24 Hour Vital Signs Date Time Temp Pulse Resp B/P (MAP) Pulse Ox O2 Delivery O2 Flow Rate FiO2 08/13/19 17:09 112/57 08/13/19 17:09 77 112/57 08/13/19 15:26 98.1 77 112/57 (75) 08/13/19 15:23 Room Air 08/13/19 13:49 84 123/57 (79) 08/13/19 12:00 99.4 93 22 143/73 (96) 98 08/13/19 09:56 181/77 08/13/19 09:00 99.8 08/13/19 09:00 Room Air 08/13/19 08:52 176/74 08/13/19 08:52 109 176/74 08/13/19 08:00 102.4 109 22 176/74 (108) 94 08/13/19 07:43 176/74 08/13/19 06:02 99.6 08/13/19 04:00 99.6 89 18 149/78 (101) 97 08/13/19 00:00 100.0 83 17 149/74 (99) 98 08/12/19 21:21 Room Air 08/12/19 20:00 99.5 96 18 146/70 (95) 95 08/12/19 17:30 160/71 08/12/19 17:30 95 160/71 Intake and Output 08/12/19 08/13/19 19:00 07:00 Intake Total 1667.5 ml 240 ml Output Total 2025 ml Balance 1667.5 ml -1785 ml Intake Oral 480 ml 240 ml IV Total 1187.5 ml Output Urine Total 2025 ml # Voids 1 # Bowel Movements 1 Laboratory Tests 08/13/19 04:50: Sodium Level 141, Potassium Level 4.3, Chloride Level 106, Carbon Dioxide Level 22, Anion Gap 14, Blood Urea Nitrogen 39H, Creatinine 2.2H, Estimat Glomerular Filtration Rate , Glucose Level 117H, Calcium Level 9.1 08/13/19 11:10: Urine Color Pale yellow, Urine Appearance Cloudy, Urine pH 5, Urine Specific [place] 1.015, Urine Protein 2+H, Urine Glucose (UA) Negative, Urine Ketones Negative, Urine Blood 3+H, Urine Nitrite Negative, Urine Bilirubin Negative, Urine Urobilinogen Normal, Urine Leukocyte Esterase 3+H, Urine RBC 5-10H, Urine WBC TntcH, Urine Squamous Epithelial Cells Few, Urine Bacteria ModerateH Height (Feet): 5 Height (Inches): 5.00 Weight (Pounds): 176 General Appearance: no apparent distress EENT: normal ENT inspection Neck: normal alignment Cardiovascular: normal rate Respiratory/Chest: lungs clear Abdomen: non tender, soft Extremities: no edema Neurologic: disoriented Arthur Bethea MD Aug 13, 2019 17:17
[2019-08-13] MEDS: Piperacillin/Tazobactam 3.375 GM in NS 110 ML IVPB SCH (17:20)
--- NOTE | 2019-08-13 18:42 | Neurology Progress Note ---
Interim History Interim History Interim History Mr. Reji Au is a 79-year-old, right-handed, black gentleman, who has a relatively benign past history. He was brought to the hospital on 07/21/2019 after he had apparently fallen down and was on the floor of his apartment for 4 days. He himself has no recollection of what happened. Since he has been here he has been noted to have some gait problems. He is again significantly altered with regards to his mental state and significantly aphasic. He is unable to communicate. He has been discovered to have an acute UTI. He has still not had his LESA and lumbar puncture performed. Review of Systems Neuro Review of Systems Benign. Objective Physical Exam Last Vital Signs Date Time Temp Pulse Resp B/P (MAP) Pulse Ox O2 Delivery O2 Flow Rate FiO2 08/13/19 17:09 112/57 08/13/19 17:09 77 08/13/19 15:26 98.1 08/13/19 15:23 Room Air 08/13/19 12:00 22 98 Laboratory Tests Test 08/13/19 04:50 08/13/19 11:10 Sodium Level 141 MMOL/L (136-145) Potassium Level 4.3 MMOL/L (3.5-5.1) Chloride Level 106 MMOL/L (98-107) Carbon Dioxide Level 22 MMOL/L (21-32) Anion Gap 14 mmol/L (5-15) Blood Urea Nitrogen 39 mg/dL (7-18) H Creatinine 2.2 MG/DL (0.55-1.30) H Estimat Glomerular Filtration Rate mL/min (>60) Glucose Level 117 MG/DL (74-106) H Calcium Level 9.1 MG/DL (8.5-10.1) Urine Color Pale yellow Urine Appearance Cloudy Urine pH 5 (4.5-8.0) Urine Specific [place] 1.015 (1.005-1.035) Urine Protein 2+ (NEGATIVE) H Urine Glucose (UA) Negative (NEGATIVE) Urine Ketones Negative (NEGATIVE) Urine Blood 3+ (NEGATIVE) H Urine Nitrite Negative (NEGATIVE) Urine Bilirubin Negative (NEGATIVE) Urine Urobilinogen Normal MG/DL (0.0-1.0) Urine Leukocyte Esterase 3+ (NEGATIVE) H Urine RBC 5-10 /HPF (0 - 0) H Urine WBC Tntc /HPF (0 - 0) H Urine Squamous Epithelial Cells Few /LPF (NONE/OCC) Urine Bacteria Moderate /HPF (NONE) H Neurologic Exam Objective PHYSICAL EXAMINATION: GENERAL: He is a well-developed, relatively well-nourished, Black gentleman, lying in bed in no acute distress. HEAD: Normocephalic and atraumatic. NECK: No neck rigidity was observed. EENT examination: Benign. NEUROLOGICAL EXAMINATION: Mental status examination: He was awake but not alert. He was a phasic and mute. Further mental status testing was impossible. Frontal systems tasks: Not be tested. Speech: He was mute. Language: He was unable to follow simple commands or express himself in any way. Cranial nerve examination: II: He did blink to threat. He was unable to cooperate for visual field testing. III, IV & : The external ocular movements were full. The pupils were 3 mm in diameter and reactive sluggishly to light. V-VII: The corneal reflexes were equal bilaterally. He had a trace right seventh central facial paresis. VIII: He was able to hear well and had no nystagmus. IX: Could not be tested. X: Could not be tested. XI: The sternocleidomastoids and trapezii functioned. XII: The tongue was in the midline. Motor system: The tone was normal in all 4 extremities. Examination of muscle mass revealed no focal wasting. Examination of power was impossible to perform because of his inability to cooperate. Sensory examination: He was able to localize painful stimuli but could not cooperate further sensory modalities. Reflexes: 2+ and bilaterally symmetrical at the biceps, triceps, brachioradialis and knees. 0 at both ankles. The plantar responses were flexor. Coordination: He was unable to follow the commands for [id number] or [id number] testing. Stance: Deferred. Gait: Deferred. Impression/Recommendations Diagnostic Impression DIAGNOSTIC IMPRESSION: 1. Mr. Reji Au is a 79-year-old, right-handed, black gentleman, who has a relatively benign past history. He was brought to the hospital on 07/21/2019 after he had apparently fallen down and was on the floor of his apartment for 4 days. He himself has no recollection of what happened. Since he has been here he has been noted to have some gait problems. 2. He is again significantly altered with regards to his mental state and significantly aphasic. He is unable to communicate. He has been discovered to have an acute UTI. He has still not had his LESA and lumbar puncture performed. 3. On neurological examination, at this time, he is awake but not alert. He is aphasic and mute. Further mental status testing is impossible. He is unable to follow simple commands or express himself in any way. He also has a trace right seventh central facial paresis. He however does not demonstrate any lateralizing findings on his motor, sensory, or reflex examination. 4. Laboratory data on my initial evaluation revealed that he was anemic with a hemoglobin of 11.5 G. His latest BUN was 42 and latest creatinine is 2.3. When he came in his CK was 2257 and it had normalized to 241. He was folic acid deficient with a folic acid level of 7.5. His RPR was positive in a low titre of 1:1. The FTA-ABS is reactive. 5. The urine analysis performed today reveals 3+ leukocyte esterase, 5-10 red blood cells and too numerous to count white blood cells per high-power field. 6. The MRI scan of the brain performed on 08/05/2019 revealed multiple acute infarcts involving both cerebral hemispheres, basal ganglia, and the left cerebellum. In addition multiple old small infarcts scattered in the brain were also seen. 7. The MRI scan of the brain repeated on 08/12/2019 revealed multiple new acute infarctions in multiple different vascular territories. 8. A CT of the brain done today reveals atrophy, deep white matter changes and old infarcts but no acute pathology. 9. Thus far cardiac monitoring has revealed no arrhythmia. 10. The patient's history, neurological examination, laboratory data, and imaging studies, most consistent with multiple showers of emboli to the brain over multiple different time periods. Leading to significant neurological dysfunction. 11. Patient also has a positive peripheral RPR and FTA-ABS. This is indicative of exposure to syphilis. Neurosyphilis should be excluded. 12. His recent decline in neurological function may be related to the acute urinary tract infection in addition to all the other problems that he has. Recommendations RECOMMENDATIONS: 1. Continue present management. 2. Transesophageal echocardiogram with bubble study should be performed to evaluate the patient for cardiogenic source of emboli. 3. Agree with obtaining a lumbar puncture to evaluate the patient for neurosyphilis. 4. Continue physical and occupational therapy to mobilize patient. 5. Aggressive treatment of acute infectious process. 6. Folic acid 1 mg daily for folate deficiency. 7. Observe closely. Beka Smith M.D., M.S.P.H. Neurologist & Clinical Neurophysiologist Beka Smith MD Aug 13, 2019 18:42
--- NOTE | 2019-08-13 19:26 | NUR ---
HAND-OFF: Report given to PERLA MCGEE.
--- NOTE | 2019-08-13 19:27 | NUR ---
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
--- NOTE | 2019-08-13 19:35 | NUR ---
NURSE NOTES: Received report from ARELY Prater. Patient is asleep lying semi-olsen's; resting comfortably. Arousable to tactile and pain stimuli. No signs of acute distress noted; denies pain at this time. AOx1; unable to verbalize needs, but able to follow commands to some degree. Checked IV site; patent and flushed. No erythema, bleeding, or infiltration noted. Walsh catheter draining well to gravity. Bed at lowest position, brakes on, siderails up x3. Call light within reach. Will continue to monitor.
--- NOTE | 2019-08-13 22:02 | NUR ---
NURSE NOTES: Called Dr. Bethea, covering MD for Dr. Cervantes, regarding a possible restraint order since patient is observed to be removing mathematician and may pull out Walsh. Was told, "If the monitor comes off, it comes off. Don't fight him, that's all I'm saying." No new orders received at this time.
[2019-08-14] VITALS: BP 151/73
[2019-08-14] MEDS: Piperacillin/Tazobactam 3.375 GM in NS 110 ML IVPB SCH ×3 (01:05→18:30)
[2019-08-14 04:00] VITALS: BP 145/72
--- NOTE | 2019-08-14 04:21 | NUR ---
NURSE NOTES: Patient is asleep lying semi-olsen's; resting comfortably. No signs of acute distress or pain noted at this time. Walsh catheter draining well to gravity.
--- NOTE | 2019-08-14 05:18 | NUR ---
NURSE NOTES: Called Dr. Cervantes regarding lab orders for today. Awaiting callback for any further orders.
--- NOTE | 2019-08-14 07:15 | NUR ---
NURSE NOTES: RECEIVED BED SIDE REPORT FROM MARSHALL WOOD GRINDER OPERATOR OF TELEMETRY UNIT. REC,D PT WITH HOB ELEVATED 45 DEGREE EYES OPENS WITH VERBAL AND TACTILE STIMULI ,REFUSED TO TALK AT THIS TIME. FULL BODY ASSESSMENT DONE. H.L ON LT HAND PATENT AND INTACT.PT REPOSITIONED IN BED AND MADE COMFORTABLE POSSIBLE.PT REMAINS FREE OF INJURIES AT THIS TIME. WILL CONT TO MONITOR.
--- NOTE | 2019-08-14 07:21 | Progress Note ---
DATE: 08/13/2019 SUBJECTIVE: The patient is in bed. No acute distress noted. The patient is more confused today. Not able to communicate. Waxing and waning consciousness. The patient has UTI. MENTAL STATUS EXAMINATION: The patient is waxing and waning consciousness. Mood is anxious. Affect is flat. Thought process is concrete. Thought content, no suicidal or homicidal ideation. Cognition is impaired, easily agitated. ASSESSMENT: Acute toxic encephalopathy. PLAN: 1. Continue low-dose of antipsychotics. 2. Provide the patient with reality orientation and supportive therapy. Nury Mandel M.D. DR: LILIYA JOB#: [id number] CC:
--- NOTE | 2019-08-14 07:36 | NUR ---
HAND-OFF: Report given to ARELY Tony. Patient is asleep lying semi-olsen's; resting comfortably. Walsh catheter draining well to gravity. In stable condition.
[2019-08-14 08:00] VITALS: BP 136/61
--- NOTE | 2019-08-14 08:22 | Urology Progress Note ---
Assessment/Plan Assessment/Plan: 1. Urinary retention. 2. BPH history. 3. Probable neurogenic bladder. 4. Renal insufficiency acute on chronic. 5. Hematuria. dickson remains indwelling for now, replaced 08/11 hand irrigated and do PRN cont with flomax, proscar urecholine dose increased minimize seroquel repeat voiding trial later, once more alert and ambulatory cysto later f/u on last blood cx d/w Dr. Cervantes Subjective Allergies: Coded Allergies: No Known Allergies (Unverified , 07/21/19) Subjective all noted, no new complaints, dickson indwelling Objective Last 24 Hour Vital Signs Date Time Temp Pulse Resp B/P (MAP) Pulse Ox O2 Delivery O2 Flow Rate FiO2 08/14/19 04:00 82 08/14/19 04:00 98.0 68 16 145/72 (96) 99 08/14/19 00:00 88 08/14/19 00:00 98.4 88 18 151/73 (99) 100 08/13/19 21:00 Room Air 08/13/19 20:00 77 08/13/19 20:00 98.2 79 16 147/76 (99) 95 08/13/19 17:09 112/57 08/13/19 17:09 77 112/57 08/13/19 15:26 98.1 77 112/57 (75) 08/13/19 15:23 Room Air 08/13/19 15:14 69 08/13/19 13:49 84 123/57 (79) 08/13/19 12:00 99.4 93 22 143/73 (96) 98 08/13/19 09:56 181/77 08/13/19 09:00 99.8 08/13/19 09:00 Room Air 08/13/19 08:52 176/74 08/13/19 08:52 109 176/74 Intake and Output 08/13/19 08/14/19 19:00 07:00 Intake Total 622.5 ml 407.7 ml Output Total 600 ml 900 ml Balance 22.5 ml -492.3 ml Intake Oral 240 ml IV Total 382.5 ml 407.7 ml Output Urine Total 600 ml 900 ml Microbiology Date/Time Source Procedure Growth Status 08/12/19 14:40 Blood Blood Culture - Preliminary NO GROWTH AFTER 24 HOURS Resulted 07/21/19 17:35 Nasal Nares - Final Complete 07/21/19 17:35 Nasal Nares - Final Complete 08/08/19 09:30 Indwelling Cath Urine Culture - Final NO GROWTH AFTER 48 HOURS Complete Current Medications Medications (Trade) Dose Ordered Sig/Hanh Route PRN Reason Start Time Stop Time Status Last Admin Dose Admin Acetaminophen (Tylenol) 650 mg Q6H PRN ORAL Mild Pain/Temp > 100.5 08/13/19 15:23 09/12/19 15:22 Amlodipine Besylate (Norvasc) 10 mg BID ORAL 08/13/19 18:00 08/25/19 17:59 Bethanechol Chloride (Urecholine) 50 mg THREE TIMES A DAY ORAL 08/13/19 18:00 09/01/19 13:59 Bisacodyl (Dulcolax) 10 mg DAILYPRN PRN RECTAL Constipation 08/13/19 15:23 09/12/19 15:22 Clonidine HCl (Catapres TTS-3) 1 patch QWEEK TDERMAL 08/19/19 12:00 08/21/19 11:59 Clonidine HCl (Catapres tab) 0.2 mg Q2H PRN ORAL sbp>170 08/13/19 15:24 09/12/19 15:23 Finasteride (Proscar) 5 mg DAILY ORAL 08/14/19 09:00 08/27/19 08:59 Folic Acid (Folate) 1 mg DAILY ORAL 08/14/19 09:00 09/05/19 08:59 Heparin Sodium (Porcine) (Heparin 5000 units/ml) 5,000 units EVERY 12 HOURS SUBQ 08/13/19 21:00 08/31/19 20:59 Hydralazine HCl (Apresoline) 10 mg Q2H PRN IV SBP>180 08/13/19 17:00 09/12/19 16:59 Hydralazine HCl (Apresoline) 100 mg BID ORAL 08/13/19 18:00 08/25/19 17:59 Linezolid 300 ml @ 300 mls/hr Q12HR IVPB 08/13/19 21:00 08/20/19 08:59 08/13/19 20:58 Piperacillin Sod/ Tazobactam Sod 3.375 gm/Sodium Chloride 110 ml @ 27.5 mls/hr Q8H IVPB 08/13/19 17:00 08/20/19 08:59 08/14/19 01:05 Quetiapine Fumarate (SEROqueL) 25 mg Q6H PRN ORAL For Anxiety 08/13/19 15:24 09/12/19 15:23 Tamsulosin HCl (Flomax) 0.4 mg BID ORAL 08/13/19 18:00 08/26/19 17:59 Laboratory Tests 08/13/19 11:10: Urine Color Pale yellow, Urine Appearance Cloudy, Urine pH 5, Urine Specific [place] 1.015, Urine Protein 2+H, Urine Glucose (UA) Negative, Urine Ketones Negative, Urine Blood 3+H, Urine Nitrite Negative, Urine Bilirubin Negative, Urine Urobilinogen Normal, Urine Leukocyte Esterase 3+H, Urine RBC 5-10H, Urine WBC TntcH, Urine Squamous Epithelial Cells Few, Urine Bacteria ModerateH Height (Feet): 5 Height (Inches): 5.00 Weight (Pounds): 176 Objective exam stable dickson indwelling Kali Serrano MD Aug 14, 2019 08:22
[2019-08-14] MEDS: Heparin 5000 units/ml inj SUBQ SCH ×2 (09:00→21:00)
--- NOTE | 2019-08-14 09:00 | NUR ---
NURSE NOTES: PT REFUSED HEPARIN 5000 UNITS SUBQ, PT VERBALLY " DON.T TOUCH ME OR I WILL HIT YOU IN YOUR FACE PUNK" . DR MANUEL CAME TO SEE THE PT AND MADE AWARE AND NOTIFIED REGARDING PT REFUSED TO HAVE HEPARIN SUBQ AND BEEN VERY AGGRESSIVE WITH NURSES STAFF AND REFUSED TO SIGH LESA PROCEDURE. Luis MANUEL TRAYING TO TALK WITH THE PT. PT REFUSED TO TALK AT THIS TIME. WILL CONT TO MONITOR.
[2019-08-14] MEDS: Tamsulosin 0.4mg cap ORAL SCH ×2 (09:52→18:30)
[2019-08-14] MEDS: HydrALAZINE 50mg tab ORAL SCH ×2 (09:53→18:30)
[2019-08-14] MEDS: Bethanechol 25mg Tab ORAL SCH ×3 (09:54→18:31)
--- NOTE | 2019-08-14 10:17 | Cardiac Electrophysiology PN ---
Assessment/Plan Status Narrative MRI Brain: Multiple foci of restricted diffusion, as described. Most of these were evident on prior study of 08/05/2019, indicating that these are residual subacute infarcts. However, there are a few new areas as detailed above, indicating lacunar infarcts that have occurred since the previous study Assessment/Plan 1. 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 EF 60%. LESA still pending Off anticoagulation to prevent hemorrhagic conversion of CVA until cleared by Neurology.Remained in SR on tele. MRI brain noted. 2. Hypertension. On Norvasc 10 mg b.i.d., hydralazine 100 mg b.i.d., clonidine patch weekly and p.r.n. clonidine 3. Benign prostatic hypertrophy on Flomax and Proscar. 4. Dementia, on Seroquel per Dr. Mandel. 5. Acute rhabdomyolysis. 6. Staph bacteremia.On Abx 7. Stage 3 chronic kidney disease. 8. Positive RPR, FTA-ABS pending 9. AMS. ?due to CVA. FU Dr Sarah CARTER RN Subjective Subjective On tele, still poorly responsive on the floor. Objective Last 24 Hour Vital Signs Date Time Temp Pulse Resp B/P (MAP) Pulse Ox O2 Delivery O2 Flow Rate FiO2 08/14/19 09:54 74 136/61 08/14/19 09:53 136/61 08/14/19 08:00 98.2 74 20 136/61 (86) 95 08/14/19 04:00 82 08/14/19 04:00 98.0 68 16 145/72 (96) 99 08/14/19 00:00 88 08/14/19 00:00 98.4 88 18 151/73 (99) 100 08/13/19 21:00 Room Air 08/13/19 20:00 77 08/13/19 20:00 98.2 79 16 147/76 (99) 95 08/13/19 17:09 112/57 08/13/19 17:09 77 112/57 08/13/19 15:26 98.1 77 112/57 (75) 08/13/19 15:23 Room Air 08/13/19 15:14 69 08/13/19 13:49 84 123/57 (79) 08/13/19 12:00 99.4 93 22 143/73 (96) 98 Intake and Output 08/13/19 08/14/19 18:59 06:59 Intake Total 622.5 ml 407.7 ml Output Total 600 ml 900 ml Balance 22.5 ml -492.3 ml Intake Oral 240 ml IV Total 382.5 ml 407.7 ml Output Urine Total 600 ml 900 ml Laboratory Tests Test 08/13/19 11:10 Urine Color Pale yellow Urine Appearance Cloudy Urine pH 5 (4.5-8.0) Urine Specific [place] 1.015 (1.005-1.035) Urine Protein 2+ (NEGATIVE) H Urine Glucose (UA) Negative (NEGATIVE) Urine Ketones Negative (NEGATIVE) Urine Blood 3+ (NEGATIVE) H Urine Nitrite Negative (NEGATIVE) Urine Bilirubin Negative (NEGATIVE) Urine Urobilinogen Normal MG/DL (0.0-1.0) Urine Leukocyte Esterase 3+ (NEGATIVE) H Urine RBC 5-10 /HPF (0 - 0) H Urine WBC Tntc /HPF (0 - 0) H Urine Squamous Epithelial Cells Few /LPF (NONE/OCC) Urine Bacteria Moderate /HPF (NONE) H Microbiology Date/Time Source Procedure Growth Status 08/12/19 14:40 Blood Blood Culture - Preliminary NO GROWTH AFTER 24 HOURS Resulted 08/12/19 14:30 Blood Blood Culture - Preliminary NO GROWTH AFTER 24 HOURS Resulted 08/13/19 11:10 Indwelling Cath Urine Culture - Preliminary Gram Negative Bacillus 1 Resulted Objective HEAD AND NECK: No JVD. LUNGS: Clear. CARDIOVASCULAR: Regular S1 and S2 with no gallop or murmur. ABDOMEN: Soft and nontender. EXTREMITIES: No pitting edema. Lance Nichols MD Aug 14, 2019 10:17
[2019-08-14 12:00] VITALS: BP 145/65
--- NOTE | 2019-08-14 12:02 | NUR ---
CASE MANAGEMENT:REVIEW 08/14/19 SI: BACTEREMIA. ACUTE CVA SYPHILIS SEROLOGY(+) 98.2 74 20 136/61 95% ON RA IS:IV ZOSYN Q8HRS IV LINEZOLID Q12 HEPARIN SQ Q12 : NOW ON TELEMETRY DCP: SNF PLACEMENT PLAN: MONITOR TEMP ~ YESTERDAY WAS 102.4 CONTINUE IV ABX LUMBAR PUNCTURE ?? TO R/O NEUROSYPHILIS
--- NOTE | 2019-08-14 12:50 | NUR ---
COMMISSIONING EDITOR PROGRESS NOTE [facility] attempted to call Regina Au (number charted on previous note). However, the call was not answered. [facility] has not received call back. [facility] is unable to locate the family. Signed: 08/14/19 at 1251 by RUSSELL FRIEND <Co-Signature Required>
--- NOTE | 2019-08-14 14:36 | Infectious Diseases Prog Note ---
Assessment/Plan Problems: (1) Fever Assessment & Plan: source suspect CAUTI with gram negative rods already on zosyn , CXR is negative for any infiltrates, monitor blood culture x2 , await final urine culture (2) Positive RPR test Assessment & Plan: with low titer and reactive FTA-ABS , rule out neurosyphilis , LP was NOT done since he was altered as per radiologist , still not following commands . TPPA serum is pending . screening for HIV is negative . 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 repeated blood cultures so far have been negative, with negative JOHN, and RF screening , recommend LESA to better evaluate his valves . doesn't meet criteria for infectious endocarditis (4) CKD (chronic kidney disease) stage 3, GFR 30-59 ml/min Assessment & Plan: avoid nephrotoxics, close monitoring of renal function, follow up with nephrology (5) Failure to thrive in adult Assessment & Plan: etiology? dementia possibly, screening for HIV is negative , may need placement (6) Gait abnormality Assessment & Plan: PT/OT eval and possible placement (7) Encephalopathy acute Assessment & Plan: recurrent CVA, VS meds side effect , VS metabolic. already on wide spectrum antibiotics . LP was not done due to altered menta status (8) Urinary retention Assessment & Plan: S/P dickson catheter placement , urology is following Subjective ROS Limited/Unobtainable: Yes Allergies: Coded Allergies: No Known Allergies (Unverified , 07/21/19) Subjective He was comfortable, lying in bed, more awake but still unresponsive to verbal commands , no cough or SOB, no nausea or vomiting , no diarrhea , NO LP was done since he was altered and not following commands . had Dickson catheter placed in on 08/11/19 Objective Vital Signs Last 24 Hour Vital Signs Date Time Temp Pulse Resp B/P (MAP) Pulse Ox O2 Delivery O2 Flow Rate FiO2 08/14/19 12:00 98.2 82 20 145/65 (91) 95 08/14/19 09:54 74 136/61 08/14/19 09:53 136/61 08/14/19 09:00 Room Air 08/14/19 08:00 98.2 74 20 136/61 (86) 95 08/14/19 08:00 68 08/14/19 04:00 82 08/14/19 04:00 98.0 68 16 145/72 (96) 99 08/14/19 00:00 88 08/14/19 00:00 98.4 88 18 151/73 (99) 100 08/13/19 21:00 Room Air 08/13/19 20:00 77 08/13/19 20:00 98.2 79 16 147/76 (99) 95 08/13/19 17:09 112/57 08/13/19 17:09 77 112/57 08/13/19 15:26 98.1 77 112/57 (75) 08/13/19 15:23 Room Air 08/13/19 15:14 69 Height (Feet): 5 Height (Inches): 5.00 Weight (Pounds): 176 General Appearance: WD/WN, no acute distress HEENT: normocephalic, atraumatic, anicteric, mucous membranes moist, PERRL, EOMI, supple, no JVD Respiratory/Chest: chest wall non-tender, lungs clear, normal breath sounds, no respiratory distress, no accessory muscle use Cardiovascular: normal peripheral pulses, normal rate, no gallop/murmur, no JVD Abdomen: normal bowel sounds, soft, non tender, no organomegaly, non distended , no mass, no scars Extremities: no cyanosis, no clubbing Skin: no rash, no lesions, no ulcers Neurologic/Psychiatric: alert, responsive Lymphatic: no neck adenopathy, no groin adenopathy Musculoskeletal: normal muscle bulk, no effusion Microbiology Date/Time Source Procedure Growth Status 08/12/19 14:40 Blood Blood Culture - Preliminary NO GROWTH AFTER 24 HOURS Resulted 08/12/19 14:30 Blood Blood Culture - Preliminary NO GROWTH AFTER 24 HOURS Resulted 08/13/19 11:10 Indwelling Cath Urine Culture - Preliminary Gram Negative Bacillus 1 Resulted Current Medications Medications (Trade) Dose Ordered Sig/Hanh Route PRN Reason Start Time Stop Time Status Last Admin Dose Admin Acetaminophen (Tylenol) 650 mg Q6H PRN ORAL Mild Pain/Temp > 100.5 08/13/19 15:23 09/12/19 15:22 Amlodipine Besylate (Norvasc) 10 mg BID ORAL 08/13/19 18:00 08/25/19 17:59 08/14/19 09:54 Bethanechol Chloride (Urecholine) 50 mg THREE TIMES A DAY ORAL 08/13/19 18:00 09/01/19 13:59 08/14/19 09:54 Bisacodyl (Dulcolax) 10 mg DAILYPRN PRN RECTAL Constipation 08/13/19 15:23 09/12/19 15:22 Clonidine HCl (Catapres TTS-3) 1 patch QWEEK TDERMAL 08/19/19 12:00 08/21/19 11:59 Clonidine HCl (Catapres tab) 0.2 mg Q2H PRN ORAL sbp>170 08/13/19 15:24 09/12/19 15:23 Finasteride (Proscar) 5 mg DAILY ORAL 08/14/19 09:00 08/27/19 08:59 08/14/19 09:53 Folic Acid (Folate) 1 mg DAILY ORAL 08/14/19 09:00 09/05/19 08:59 08/14/19 09:52 Heparin Sodium (Porcine) (Heparin 5000 units/ml) 5,000 units EVERY 12 HOURS SUBQ 08/13/19 21:00 08/31/19 20:59 Hydralazine HCl (Apresoline) 10 mg Q2H PRN IV SBP>180 08/13/19 17:00 09/12/19 16:59 Hydralazine HCl (Apresoline) 100 mg BID ORAL 08/13/19 18:00 08/25/19 17:59 08/14/19 09:53 Piperacillin Sod/ Tazobactam Sod 3.375 gm/Sodium Chloride 110 ml @ 27.5 mls/hr Q8H IVPB 08/13/19 17:00 08/20/19 08:59 08/14/19 09:04 Quetiapine Fumarate (SEROqueL) 25 mg Q6H PRN ORAL For Anxiety 08/13/19 15:24 09/12/19 15:23 Tamsulosin HCl (Flomax) 0.4 mg BID ORAL 08/13/19 18:00 08/26/19 17:59 08/14/19 09:52 Anastasia Lion M.D. Aug 14, 2019 14:36
--- NOTE | 2019-08-14 14:56 | Nephrology Progress Note ---
Assessment/Plan Problem List: (1) Hypertension, benign (2) Toxic metabolic encephalopathy (3) Gait abnormality (4) Rhabdomyolysis (5) JERMAINE (acute kidney injury) (6) Dehydration (7) Episode of generalized weakness (8) Bacteremia due to Staphylococcus (9) CKD (chronic kidney disease) stage 3, GFR 30-59 ml/min (10) Urinary retention Plan f/u lab, , mobilize, try to get coop to po meds lab trend better until 1/ rise in creat , ckd3, renal US, mobilize, dickson placed as 800 ml residual , would keep dickson for one week, flomax and finasteride started, voiding trial so far bladder residual 350 08/02 then voided check again later, add urecholine, dickson was replaced renal function stable--recheck lab as prior afib , now nsr, bun/cr higher 08/07 I will increase iv rate, repeat 08/08 reviewed, can observe K, voiding trial again failed and dickson placed 08/08, bun and creatinine higher, restart iv fluid improving Subjective ROS Limited/Unobtainable: Yes Objective Objective Last 24 Hour Vital Signs Date Time Temp Pulse Resp B/P (MAP) Pulse Ox O2 Delivery O2 Flow Rate FiO2 08/14/19 12:00 98.2 82 20 145/65 (91) 95 08/14/19 12:00 72 08/14/19 09:54 74 136/61 08/14/19 09:53 136/61 08/14/19 09:00 Room Air 08/14/19 08:00 98.2 74 20 136/61 (86) 95 08/14/19 08:00 68 08/14/19 04:00 82 08/14/19 04:00 98.0 68 16 145/72 (96) 99 08/14/19 00:00 88 08/14/19 00:00 98.4 88 18 151/73 (99) 100 08/13/19 21:00 Room Air 08/13/19 20:00 77 08/13/19 20:00 98.2 79 16 147/76 (99) 95 08/13/19 17:09 112/57 08/13/19 17:09 77 112/57 08/13/19 15:26 98.1 77 112/57 (75) 08/13/19 15:23 Room Air 1/22/20 15:14 69 Intake and Output 08/13/19 08/14/19 19:00 07:00 Intake Total 622.5 ml 407.7 ml Output Total 600 ml 900 ml Balance 22.5 ml -492.3 ml Intake Oral 240 ml IV Total 382.5 ml 407.7 ml Output Urine Total 600 ml 900 ml Height (Feet): 5 Height (Inches): 5.00 Weight (Pounds): 176 General Appearance: no apparent distress EENT: normal ENT inspection Neck: normal alignment, supple Cardiovascular: normal rate Respiratory/Chest: lungs clear Abdomen: non tender 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
[2019-08-14] MEDS ORDERED: 1/2 NS 1000ml IV ONE (15:11)
--- NOTE | 2019-08-14 15:23 | Pulmonology Progress Note ---
Assessment/Plan Problems: (1) Rhabdomyolysis (2) JERMAINE (acute kidney injury) (3) Dehydration (4) Episode of generalized weakness (5) Weakness (6) Gait abnormality (7) Failure to thrive in adult (8) Hypertension, benign (9) Toxic metabolic encephalopathy (10) Bacteremia due to Staphylococcus (11) Positive RPR test (12) CVA (cerebral vascular accident) (13) Syphilis Assessment/Plan Assessment/Plan 1. Acute and chronic CVA, likely embolic 2. AMS, 2/2 above 3. 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 Dehydration/rhabdomyolysis/lactic acidosis - RESOLVED 5. Hyperproteinemia, possible myeloma 6. Hypertension - POORLY CONTROLLED 7. JERMAINE vs CKD, likely both 8. Obstructive uropathy 9. Generalized weakness 10. Anemia, FOBT neg PLAN: LESA needs to be done to R/O cardioembolic source, ongoing issues with consent, will d/w team ? 2 physician consent given management will change and to prevent further CVA, ? role of A/C given on going CVA's ---> will d/w Dr. Smith and Dr. Magdalena Kirkpatrick per ID, D/W Dr. Lion and agree with starting empiric therapy for neurosyphilis Per IR unable to do LP, will check with pathology BP control PT/OT DVT Px: Hep SQ Dispo planning to SNF once acute issues resolved Subjective Allergies: Coded Allergies: No Known Allergies (Unverified , 07/21/19) Subjective TTTele LP not done 2/2 positioning ID will start empiric neurosyphillis treatment Difficulty finding consent for LESA MS has been waxing and waning No cough no SOB no FC no CP Objective Last 24 Hour Vital Signs Date Time Temp Pulse Resp B/P (MAP) Pulse Ox O2 Delivery O2 Flow Rate FiO2 08/14/19 12:00 98.2 82 20 145/65 (91) 95 08/14/19 12:00 72 08/14/19 09:54 74 136/61 08/14/19 09:53 136/61 08/14/19 09:00 Room Air 08/14/19 08:00 98.2 74 20 136/61 (86) 95 08/14/19 08:00 68 08/14/19 04:00 82 08/14/19 04:00 98.0 68 16 145/72 (96) 99 08/14/19 00:00 88 08/14/19 00:00 98.4 88 18 151/73 (99) 100 08/13/19 21:00 Room Air 08/13/19 20:00 77 08/13/19 20:00 98.2 79 16 147/76 (99) 95 08/13/19 17:09 112/57 08/13/19 17:09 77 112/57 08/13/19 15:26 98.1 77 112/57 (75) 08/13/19 15:23 Room Air Intake and Output 08/13/19 08/14/19 19:00 07:00 Intake Total 622.5 ml 407.7 ml Output Total 600 ml 900 ml Balance 22.5 ml -492.3 ml Intake Oral 240 ml IV Total 382.5 ml 407.7 ml Output Urine Total 600 ml 900 ml General Appearance: cachetic - obtunded HEENT: normocephalic, atraumatic, anicteric, mucous membranes moist Respiratory/Chest: chest wall non-tender, lungs clear, normal breath sounds, no respiratory distress, no accessory muscle use Cardiovascular: normal peripheral pulses, normal rate, regular rhythm Abdomen: normal bowel sounds, soft, non tender, no organomegaly, non distended , no mass Extremities: no cyanosis, no clubbing, no edema Microbiology Date/Time Source Procedure Growth Status 08/12/19 14:40 Blood Blood Culture - Preliminary NO GROWTH AFTER 24 HOURS Resulted 08/12/19 14:30 Blood Blood Culture - Preliminary NO GROWTH AFTER 24 HOURS Resulted 08/13/19 11:10 Indwelling Cath Urine Culture - Preliminary Gram Negative Bacillus 1 Resulted Current Medications Medications (Trade) Dose Ordered Sig/Hanh Route PRN Reason Start Time Stop Time Status Last Admin Dose Admin Acetaminophen (Tylenol) 650 mg Q6H PRN ORAL Mild Pain/Temp > 100.5 08/13/19 15:23 09/12/19 15:22 Amlodipine Besylate (Norvasc) 10 mg BID ORAL 08/13/19 18:00 08/25/19 17:59 08/14/19 09:54 Bethanechol Chloride (Urecholine) 50 mg THREE TIMES A DAY ORAL 08/13/19 18:00 09/01/19 13:59 08/14/19 09:54 Bisacodyl (Dulcolax) 10 mg DAILYPRN PRN RECTAL Constipation 08/13/19 15:23 09/12/19 15:22 Clonidine HCl (Catapres TTS-3) 1 patch QWEEK TDERMAL 08/19/19 12:00 08/21/19 11:59 Clonidine HCl (Catapres tab) 0.2 mg Q2H PRN ORAL sbp>170 08/13/19 15:24 09/12/19 15:23 Finasteride (Proscar) 5 mg DAILY ORAL 08/14/19 09:00 08/27/19 08:59 08/14/19 09:53 Folic Acid (Folate) 1 mg DAILY ORAL 08/14/19 09:00 09/05/19 08:59 08/14/19 09:52 Heparin Sodium (Porcine) (Heparin 5000 units/ml) 5,000 units EVERY 12 HOURS SUBQ 08/13/19 21:00 08/31/19 20:59 Hydralazine HCl (Apresoline) 10 mg Q2H PRN IV SBP>180 08/13/19 17:00 09/12/19 16:59 Hydralazine HCl (Apresoline) 100 mg BID ORAL 08/13/19 18:00 08/25/19 17:59 08/14/19 09:53 Piperacillin Sod/ Tazobactam Sod 3.375 gm/Sodium Chloride 110 ml @ 27.5 mls/hr Q8H IVPB 08/13/19 17:00 08/20/19 08:59 08/14/19 09:04 Quetiapine Fumarate (SEROqueL) 25 mg Q6H PRN ORAL For Anxiety 08/13/19 15:24 09/12/19 15:23 Tamsulosin HCl (Flomax) 0.4 mg BID ORAL 08/13/19 18:00 08/26/19 17:59 08/14/19 09:52 Shiraz Cervantes MD Aug 14, 2019 15:23
[2019-08-14 16:00] VITALS: BP 139/83
--- NOTE | 2019-08-14 19:20 | NUR ---
HAND-OFF: Report given to .ELISE MCGEE
--- NOTE | 2019-08-14 19:30 | NUR ---
NURSE NOTES: Received pt and report from ARELY Tony. Observed pt resting in bed with both eyes open. Pt is A/Ox1. child monitor is in placed; pt is sinus tachycardia. IV site intact, asymptomatic and patent. Pt has a Walsh placed for retention; patent and urine is yellow. Bed is in the lowest position and locked. Call light and bedside table is within reach. No signs/symptoms of acute distress noted at this time. Will continue plan of care.
--- NOTE | 2019-08-14 19:36 | Neurology Progress Note ---
Interim History Interim History Interim History Mr. Reji Au is a 79-year-old, right-handed, black gentleman, who has a relatively benign past history. He was brought to the hospital on 07/21/2019 after he had apparently fallen down and was on the floor of his apartment for 4 days. He himself has no recollection of what happened. Since he has been here he has been noted to have some gait problems. As per his nurse he has had periods of significant confusion and agitation followed by periods of being calm. He feels better at this point in time. He is able to express himself and understand well. The mind is significantly clearer today compared to yesterday. He is aware that he is quite ill and agrees to get his LESA and lumbar puncture performed. His urinary tract infection is being treated appropriately. He denies any new neurological symptoms. Review of Systems Neuro Review of Systems Benign. Objective Physical Exam Last Vital Signs Date Time Temp Pulse Resp B/P (MAP) Pulse Ox O2 Delivery O2 Flow Rate FiO2 08/14/19 18:30 139/83 08/14/19 18:30 71 08/14/19 16:00 97.5 20 99 08/14/19 09:00 Room Air Neurologic Exam Objective PHYSICAL EXAMINATION: GENERAL: He is a well-developed, relatively well-nourished, Black gentleman, lying in bed in no acute distress. HEAD: Normocephalic and atraumatic. NECK: No neck rigidity was observed. EENT examination: Benign. NEUROLOGICAL EXAMINATION: Mental status examination: He was awake much more alert. He was oriented to self, hospital and July only. Further mental status testing was impossible. Frontal systems tasks: He was unable to cooperate. Speech: He had no dysarthria. Language: He was able to comprehend and express himself but not perfectly. Cranial nerve examination: II: He was able to count fingers accurately. III, IV & : The external ocular movements were full. The pupils were 3 mm in diameter and reactive sluggishly to light. V-VII: The corneal reflexes were equal bilaterally. He had a trace right seventh central facial paresis. VIII: He was able to hear well and had no nystagmus. IX: Could not be tested. X: Could not be tested. XI: The sternocleidomastoids and trapezii functioned. XII: The tongue was in the midline. Motor system: The tone was normal in all 4 extremities. Examination of muscle mass revealed no focal wasting. Examination of power revealed G 5/5 power in all muscle groups tested. Sensory examination: He was able to localize light touch all over his body. Reflexes: 2+ and bilaterally symmetrical at the biceps, triceps, brachioradialis and knees. 0 at both ankles. The plantar responses were flexor. Coordination: He performed well on [id number] testing. He was apractic with [id number] testing. Stance: Deferred. Gait: Deferred. Impression/Recommendations Diagnostic Impression DIAGNOSTIC IMPRESSION: 1. Mr. Reji Au is a 79-year-old, right-handed, black gentleman, who has a relatively benign past history. He was brought to the hospital on 07/21/2019 after he had apparently fallen down and was on the floor of his apartment for 4 days. He himself has no recollection of what happened. Since he has been here he has been noted to have some gait problems. 2. As per his nurse he has had periods of significant confusion and agitation followed by periods of being calm. He feels better at this point in time. He is able to express himself and understand well. The mind is significantly clearer today compared to yesterday. He is aware that he is quite ill and agrees to get his LESA and lumbar puncture performed. His urinary tract infection is being treated appropriately. He denies any new neurological symptoms. 3. On neurological examination, at this time, he is awake and alert. He is oriented to self, hospital, and July only. He is unable to cooperate for further mental status testing. He has problems with comprehension and expression of language but is significantly better than what he was yesterday. He has a trace right seventh central facial paresis. He however does not demonstrate any lateralizing findings on his motor, sensory, or reflex examination. 4. Laboratory data on my initial evaluation revealed that he was anemic with a hemoglobin of 11.5 G. His latest BUN was 42 and latest creatinine is 2.3. When he came in his CK was 2257 and it had normalized to 241. He was folic acid deficient with a folic acid level of 7.5. His RPR was positive in a low titre of 1:1. The FTA-ABS is reactive. 5. The urine analysis performed today reveals 3+ leukocyte esterase, 5-10 red blood cells and too numerous to count white blood cells per high-power field. 6. The MRI scan of the brain performed on 08/05/2019 revealed multiple acute infarcts involving both cerebral hemispheres, basal ganglia, and the left cerebellum. In addition multiple old small infarcts scattered in the brain were also seen. 7. The MRI scan of the brain repeated on 08/12/2019 revealed multiple new acute infarctions in multiple different vascular territories. 8. A CT of the brain done today reveals atrophy, deep white matter changes and old infarcts but no acute pathology. 9. Thus far cardiac monitoring has revealed no arrhythmia. 10. The patient's history, neurological examination, laboratory data, and imaging studies, most consistent with multiple showers of emboli to the brain over multiple different time periods. Leading to significant neurological dysfunction. 11. Patient also has a positive peripheral RPR and FTA-ABS. This is indicative of exposure to syphilis. Neurosyphilis should be excluded. 12. His recent decline in neurological function may be related to the acute urinary tract infection in addition to all the other problems that he has. He however is significantly better today. Recommendations RECOMMENDATIONS: 1. Continue present management. 2. Transesophageal echocardiogram with bubble study should be performed to evaluate the patient for a cardiogenic source of emboli. The patient agrees with it right now and if in the future there is a problem with obtaining consent then it should be noted that it is medically necessary to get the procedure done so that the patient can get adequate therapy. If not done the patient is at significant risk of having more strokes. 3. Agree with obtaining a lumbar puncture to evaluate the patient for neurosyphilis. 4. Continue physical and occupational therapy to mobilize patient. 5. Aggressive treatment of acute infectious process. 6. Folic acid 1 mg daily for folate deficiency. 7. Observe closely. Beka Smith M.D., M.S.P.H. Neurologist & Clinical Neurophysiologist Beka Smith MD Aug 14, 2019 19:36
[2019-08-14 20:00] VITALS: BP 151/59
--- NOTE | 2019-08-14 22:06 | NUR ---
NURSE NOTES: Pt refused Heparin 5000 unit subQ. Explained and educated pt of risks and benefits of heparin subQ. Reinforcement needed; pt still refused.
[2019-08-15] VITALS: BP 154/72
[2019-08-15] MEDS: Piperacillin/Tazobactam 3.375 GM in NS 110 ML IVPB SCH ×3 (01:11→17:13)
--- NOTE | 2019-08-15 01:42 | NUR ---
NURSE NOTES: Pt is confused and agitated. Pt tried to get out of bed and pulled out IV. Bleeding was stopped. New IV was placed on Rt wrist 22G. Will continue to monitor pt closely.
[2019-08-15 04:00] VITALS: BP 155/71
--- NOTE | 2019-08-15 04:15 | Progress Note ---
DATE: 08/14/2019 SUBJECTIVE: The patient is having waxing and waning consciousness, more confused than baseline, easily agitated. MENTAL STATUS EXAMINATION: The patient is confused and disoriented. Mood is agitated. Affect is flat. Thought process, there is a paucity of thought content. Thought content, no suicidal or homicidal ideation. Cognition is impaired. ASSESSMENT: Acute encephalopathy. PLAN: We will continue current psychotropic medications. Nury Mandel M.D. DR: Nitish JOB#: [id number] CC:
--- NOTE | 2019-08-15 07:30 | NUR ---
HAND-OFF: Report given to ARELY Buitrago. Plan of care endorsed.
[2019-08-15 07:49] LABS: ANION GAP 14 mmol/L (5-15); BLOOD UREA NITROGEN 40 mg/dL (7-18); CALCIUM 8.8 MG/DL (8.5-10.1); CARBON DIOXIDE 22 MMOL/L (21-32); CHLORIDE 108 MMOL/L (98-107); CREATININE 2.4 MG/DL (0.55-1.30); POTASSIUM 3.8 MMOL/L (3.5-5.1); SODIUM 143 MMOL/L (136-145)
[2019-08-15 08:00] VITALS: BP 158/78
--- NOTE | 2019-08-15 08:59 | NUR ---
CASE MANAGEMENT:REVIEW 08/15/19 SI: BACTEREMIA. ACUTE CVA SYPHILIS SEROLOGY(+) 99.2 89 18 155/71 95% ON RA IS:IV ZOSYN Q8HRS IV LINEZOLID Q12 HEPARIN SQ Q12 : NOW ON TELEMETRY DCP: SNF PLACEMENT PLAN: PATIENT HAS AGREED TO LESA AND LUMBAR PUNCTURE LUMBAR PUNCTURE ?? TO R/O NEUROSYPHILIS
[2019-08-15] MEDS: Bethanechol 25mg Tab ORAL SCH ×4 (09:00→16:51)
[2019-08-15] MEDS: HydrALAZINE 50mg tab ORAL SCH ×3 (09:00→16:51)
[2019-08-15] MEDS: Heparin 5000 units/ml inj SUBQ SCH ×2 (09:00→21:00)
[2019-08-15] MEDS: Tamsulosin 0.4mg cap ORAL SCH ×3 (09:00→16:51)
[2019-08-15] MEDS ORDERED: LORazepam Inj 2mg/ml 1ml IV SCH (11:30)
[2019-08-15 12:00] VITALS: BP 161/93
[2019-08-15] MEDS ORDERED: Haloperidol 5mg/ml Inj IM PRN (12:15)
--- NOTE | 2019-08-15 12:19 | Cardiac Electrophysiology PN ---
Assessment/Plan Status Narrative MRI Brain: Multiple foci of restricted diffusion, as described. Most of these were evident on prior study of 08/05/2019, indicating that these are residual subacute infarcts. However, there are a few new areas as detailed above, indicating lacunar infarcts that have occurred since the previous study Assessment/Plan 1. 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 EF 60%. LESA pending Off anticoagulation to prevent hemorrhagic conversion of CVA until cleared by Neurology.Remained in SR on tele. MRI brain noted. 2. Hypertension. On Norvasc 10 mg b.i.d.( Decrease to 10 daily), hydralazine 100 mg b.i.d., clonidine patch weekly and p.r.n. clonidine 3. Benign prostatic hypertrophy on Flomax and Proscar. 4. Dementia, on Seroquel per Dr. Mandel. 5. Acute rhabdomyolysis. 6. Staph bacteremia.On Abx 7. Stage 3 chronic kidney disease. 8. Positive RPR, FTA-ABS pending 9. AMS. ?due to CVA. FU Dr Sarah CARTER RN and Dr Helen MURRIETA tele as not wearing it Subjective Subjective On tele, agitated on the floor. Just spit on the RN. Not wearing the telemetry Objective Last 24 Hour Vital Signs Date Time Temp Pulse Resp B/P (MAP) Pulse Ox O2 Delivery O2 Flow Rate FiO2 08/15/19 09:00 Room Air 08/15/19 08:00 99.5 81 20 158/78 (104) 98 08/15/19 04:00 89 08/15/19 04:00 99.2 89 18 155/71 (99) 95 08/15/19 00:00 99.3 95 17 154/72 (99) 95 08/15/19 00:00 106 08/14/19 21:00 Room Air 08/14/19 20:00 101 08/14/19 20:00 99.1 95 17 151/59 (89) 96 08/14/19 18:30 139/83 08/14/19 18:30 71 139/83 08/14/19 16:00 76 08/14/19 16:00 97.5 71 20 139/83 (101) 99 Intake and Output 08/14/19 08/15/19 19:00 07:00 Intake Total 530.0 ml Output Total 1600 ml Balance 530.0 ml -1600 ml Intake Oral 120 ml IV Total 410.0 ml Output Urine Total 1600 ml Laboratory Tests Test 08/15/19 05:34 Sodium Level 143 MMOL/L (136-145) Potassium Level 3.8 MMOL/L (3.5-5.1) Chloride Level 108 MMOL/L (98-107) H Carbon Dioxide Level 22 MMOL/L (21-32) Anion Gap 14 mmol/L (5-15) Blood Urea Nitrogen 40 mg/dL (7-18) H Creatinine 2.4 MG/DL (0.55-1.30) H Estimat Glomerular Filtration Rate mL/min (>60) Glucose Level 98 MG/DL (74-106) Calcium Level 8.8 MG/DL (8.5-10.1) Microbiology Date/Time Source Procedure Growth Status 08/13/19 09:25 Blood Blood Culture - Preliminary NO GROWTH AFTER 24 HOURS Resulted 08/13/19 09:10 Blood Blood Culture - Preliminary NO GROWTH AFTER 24 HOURS Resulted 08/12/19 14:40 Blood Blood Culture - Preliminary NO GROWTH AFTER 48 HOURS Resulted 08/12/19 14:30 Blood Blood Culture - Preliminary NO GROWTH AFTER 48 HOURS Resulted 08/13/19 11:10 Indwelling Cath Urine Culture - Final Morganella Morg Spp Morganii Complete Objective HEAD AND NECK: No JVD. LUNGS: Clear. CARDIOVASCULAR: Regular S1 and S2 with no gallop or murmur. ABDOMEN: Soft and nontender. EXTREMITIES: No pitting edema. Lance Nichols MD Aug 15, 2019 12:19
--- NOTE | 2019-08-15 13:02 | NUR ---
RD ASSESSMENT & RECOMMENDATIONS SEE CARE ACTIVITY FOR COMPLETE ASSESSMENT DAILY ESTIMATED NEEDS: Needs based on cardiac, 69kg abw 25-30 kcals/kg 1318-3049 total kcals 1-1.2 g protein/kg 69-83 g total protein 25-30 mL/kg 4650-8499 total fluid mLs NUTRITION DIAGNOSIS: Altered nutrition related lab values R/T dehydration, HTN, clinical condition as evidenced by elev creat (1.8 -> 2.4), elev T bili (1.1 -> wnl), elev BPs (220/110 -> now improved), low K (3.3 -> wnl), elev total creatine kinase (2240 ->440-> now wnl). CURRENT DIET:NPO PO DIET RECOMMENDATIONS: LOW NA/ texture as tolerated ADDITIONAL RECOMMENDATIONS: * Calibrated bedscale wt * Monitor lytes, replete as needed * Monitor for bowel movement -> consider bowel regimen * Monitor PO intake. * rec to add Ensure Enlive w/ active diet order .
--- NOTE | 2019-08-15 13:16 | NUR ---
P.T NOTE: PATIENT WAS TRANSFERRED TO TELEMETRY UNIT FOR FURTHER MEDICAL MANAGEMENT AND MONITORING. PATIENT CLEARED TO MOBILIZE PER RN. ATTEMPTED TO SEE PATIENT HOWEVER PATIENT TOO LETHARGIC TO PARTICIPATE IN P.T. WILL FOLLOW UP WHEN / APPROPRIATE. RN NOTIFIED.
--- NOTE | 2019-08-15 13:25 | NUR ---
PT WEEKLY PROGRESS NOTE : late entry 08/15/2019 Patient is being seen by PT for strengthening exercises, therapeutic activities, gait training . Patient currently requires min/mod assist for bed mobility and transfers with FWW. Patient able to ambulate average distance of 25 ft with min/mod assist and FWW. Patient demonstrating slight improvement in gait stability and balance. Patient will continue to benefit from skilled PT intervention to improve his strength, balance and safety for improved level of functional mobility independence and safety . Recommend SNF for further rehab intervention at [place].
--- NOTE | 2019-08-15 13:41 | Infectious Diseases Prog Note ---
Assessment/Plan Problems: (1) Fever Assessment & Plan: source suspect CAUTI with morganella morganii , already on zosyn , CXR is negative for any infiltrates, monitor blood culture x2 , will treat with zosyn for two weeks (2) Positive RPR test Assessment & Plan: with low titer and reactive FTA-ABS , rule out neurosyphilis , LP was NOT done since he was altered as per radiologist , still not following commands . TPPA serum is pending . screening for HIV is negative . 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 repeated blood cultures so far have been negative, with negative JOHN, and RF screening , recommend LESA to better evaluate his valves . doesn't meet criteria for infectious endocarditis (4) CKD (chronic kidney disease) stage 3, GFR 30-59 ml/min Assessment & Plan: avoid nephrotoxics, close monitoring of renal function, follow up with nephrology (5) Failure to thrive in adult Assessment & Plan: etiology? dementia possibly, screening for HIV is negative , may need placement (6) Encephalopathy acute Assessment & Plan: recurrent CVA, VS meds side effect , VS metabolic. already on wide spectrum antibiotics . LP was not done due to altered menta status (7) Urinary retention Assessment & Plan: S/P dickson catheter placement , urology is following Subjective ROS Limited/Unobtainable: Yes Allergies: Coded Allergies: No Known Allergies (Unverified , 07/21/19) Subjective He was agitated early and pulled his lines and IV out, recieved halodol and now more calm and comfortable, lying in bed, awake but unresponsive to verbal commands and not cooperative with physical exam , no cough or SOB, no nausea or vomiting , no diarrhea , NO LP was done since he was altered and not following commands . had Dickson catheter placed in on 08/11/19 Objective Vital Signs Last 24 Hour Vital Signs Date Time Temp Pulse Resp B/P (MAP) Pulse Ox O2 Delivery O2 Flow Rate FiO2 08/15/19 09:00 Room Air 08/15/19 08:00 99.5 81 20 158/78 (104) 98 08/15/19 04:00 89 1/24/20 04:00 99.2 89 18 155/71 (99) 95 08/15/19 00:00 99.3 95 17 154/72 (99) 95 08/15/19 00:00 106 08/14/19 21:00 Room Air 08/14/19 20:00 101 08/14/19 20:00 99.1 95 17 151/59 (89) 96 08/14/19 18:30 139/83 08/14/19 18:30 71 139/83 08/14/19 16:00 76 08/14/19 16:00 97.5 71 20 139/83 (101) 99 Height (Feet): 5 Height (Inches): 5.00 Weight (Pounds): 176 General Appearance: WD/WN, no acute distress HEENT: normocephalic, atraumatic, anicteric, mucous membranes moist, PERRL Respiratory/Chest: chest wall non-tender, lungs clear, normal breath sounds, no respiratory distress, no accessory muscle use Cardiovascular: normal peripheral pulses, normal rate, regular rhythm, no gallop/murmur, no JVD Abdomen: normal bowel sounds, soft, non tender, no organomegaly, non distended , no mass, no scars Extremities: no cyanosis, no clubbing Skin: no rash, no lesions, no ulcers Neurologic/Psychiatric: alert, responsive Lymphatic: no neck adenopathy, no groin adenopathy Musculoskeletal: normal muscle bulk, no effusion Microbiology Date/Time Source Procedure Growth Status 08/13/19 09:25 Blood Blood Culture - Preliminary NO GROWTH AFTER 24 HOURS Resulted 08/13/19 09:10 Blood Blood Culture - Preliminary NO GROWTH AFTER 24 HOURS Resulted 08/12/19 14:40 Blood Blood Culture - Preliminary NO GROWTH AFTER 48 HOURS Resulted 08/12/19 14:30 Blood Blood Culture - Preliminary NO GROWTH AFTER 48 HOURS Resulted 08/13/19 11:10 Indwelling Cath Urine Culture - Final Morganella Morg Spp Morganii Complete Laboratory Tests Test 08/15/19 05:34 Sodium Level 143 MMOL/L (136-145) Potassium Level 3.8 MMOL/L (3.5-5.1) Chloride Level 108 MMOL/L (98-107) H Carbon Dioxide Level 22 MMOL/L (21-32) Anion Gap 14 mmol/L (5-15) Blood Urea Nitrogen 40 mg/dL (7-18) H Creatinine 2.4 MG/DL (0.55-1.30) H Estimat Glomerular Filtration Rate mL/min (>60) Glucose Level 98 MG/DL (74-106) Calcium Level 8.8 MG/DL (8.5-10.1) Current Medications Medications (Trade) Dose Ordered Sig/Hanh Route PRN Reason Start Time Stop Time Status Last Admin Dose Admin Acetaminophen (Tylenol) 650 mg Q6H PRN ORAL Mild Pain/Temp > 100.5 08/13/19 15:23 09/12/19 15:22 Amlodipine Besylate (Norvasc) 10 mg DAILY ORAL 08/16/19 09:00 08/25/19 17:59 Bethanechol Chloride (Urecholine) 50 mg THREE TIMES A DAY ORAL 08/13/19 18:00 09/01/19 13:59 08/14/19 18:31 Bisacodyl (Dulcolax) 10 mg DAILYPRN PRN RECTAL Constipation 08/13/19 15:23 09/12/19 15:22 Clonidine HCl (Catapres TTS-3) 1 patch QWEEK TDERMAL 08/19/19 12:00 08/21/19 11:59 Clonidine HCl (Catapres tab) 0.2 mg Q2H PRN ORAL sbp>170 08/13/19 15:24 09/12/19 15:23 Finasteride (Proscar) 5 mg DAILY ORAL 08/14/19 09:00 08/27/19 08:59 08/14/19 09:53 Folic Acid (Folate) 1 mg DAILY ORAL 08/14/19 09:00 09/05/19 08:59 08/14/19 09:52 Haloperidol Lactate (Haldol) 2.5 mg Q6H PRN IM Agitation 08/15/19 12:15 09/14/19 12:14 Heparin Sodium (Porcine) (Heparin 5000 units/ml) 5,000 units EVERY 12 HOURS SUBQ 08/13/19 21:00 08/31/19 20:59 Hydralazine HCl (Apresoline) 10 mg Q2H PRN IV SBP>180 08/13/19 17:00 09/12/19 16:59 Hydralazine HCl (Apresoline) 100 mg BID ORAL 08/13/19 18:00 08/25/19 17:59 08/14/19 18:30 Piperacillin Sod/ Tazobactam Sod 3.375 gm/Sodium Chloride 110 ml @ 27.5 mls/hr Q8H IVPB 08/13/19 17:00 08/20/19 08:59 08/15/19 01:11 Quetiapine Fumarate (SEROqueL) 25 mg Q6H PRN ORAL For Anxiety 08/13/19 15:24 09/12/19 15:23 Tamsulosin HCl (Flomax) 0.4 mg BID ORAL 08/13/19 18:00 08/26/19 17:59 08/14/19 18:30 Anastasia Lion M.D. Aug 15, 2019 13:41
--- NOTE | 2019-08-15 13:49 | Neurology Progress Note ---
Interim History Interim History Interim History Mr. Reji Au is a 79-year-old, right-handed, black gentleman, who has a relatively benign past history. He was brought to the hospital on 07/21/2019 after he had apparently fallen down and was on the floor of his apartment for 4 days. He himself has no recollection of what happened. Since he has been here he has been noted to have some gait problems. He continues to have periods of significant confusion and agitation followed by periods of being calm. He is sedated now. He does wake up and follow a few simple commands but is unable to communicate. He keeps his eyes closed and is negativistic when his eyes are opened. His urinary tract infection is being treated appropriately. He has still not had his LESA or lumbar puncture performed. Objective Physical Exam Last Vital Signs Date Time Temp Pulse Resp B/P (MAP) Pulse Ox O2 Delivery O2 Flow Rate FiO2 08/15/19 09:00 Room Air 08/15/19 08:00 79 08/15/19 08:00 99.5 20 158/78 (104) 98 Laboratory Tests Test 08/15/19 05:34 Sodium Level 143 MMOL/L (136-145) Potassium Level 3.8 MMOL/L (3.5-5.1) Chloride Level 108 MMOL/L (98-107) H Carbon Dioxide Level 22 MMOL/L (21-32) Anion Gap 14 mmol/L (5-15) Blood Urea Nitrogen 40 mg/dL (7-18) H Creatinine 2.4 MG/DL (0.55-1.30) H Estimat Glomerular Filtration Rate mL/min (>60) Glucose Level 98 MG/DL (74-106) Calcium Level 8.8 MG/DL (8.5-10.1) Neurologic Exam Objective PHYSICAL EXAMINATION: GENERAL: He is a well-developed, relatively well-nourished, Black gentleman, lying in bed in no acute distress. HEAD: Normocephalic and atraumatic. NECK: No neck rigidity was observed. EENT examination: Benign. NEUROLOGICAL EXAMINATION: Mental status examination: He was poorly responsive. He followed a few simple commands but was unable to communicate. Further mental status testing was impossible. Frontal systems tasks: He was unable to cooperate. Speech: He was nonverbal. Language: He was able to comprehend minimally but was unable to express himself. Cranial nerve examination: II: He kept his eyes shut. III, IV & : The external ocular movements were present on oculocephalic maneuvers. The pupils were 3 mm in diameter and reactive sluggishly to light. V-VII: The corneal reflexes were equal bilaterally. He had a trace right seventh central facial paresis. VIII: He was able to hear and had no nystagmus. IX: Could not be tested. X: Could not be tested. XI: The sternocleidomastoids and trapezii functioned. XII: The tongue was in the midline. Motor system: The tone was normal in all 4 extremities. Examination of muscle mass revealed no focal wasting. Examination of power was impossible to perform however he moved all 4 extremities on deep painful stimulation and gave me good handgrips bilaterally. Sensory examination: He was able to localize deep pain. Reflexes: 2+ and bilaterally symmetrical at the biceps, triceps, brachioradialis and knees. 0 at both ankles. The plantar responses were flexor. Coordination: Could not be tested Stance: Could not be tested Gait: Could not be tested Impression/Recommendations Diagnostic Impression DIAGNOSTIC IMPRESSION: 1. Mr. Reji Au is a 79-year-old, right-handed, black gentleman, who has a relatively benign past history. He was brought to the hospital on 07/21/2019 after he had apparently fallen down and was on the floor of his apartment for 4 days. He himself has no recollection of what happened. Since he has been here he has been noted to have some gait problems. 2. He continues to have periods of significant confusion and agitation followed by periods of being calm. He is sedated now. He does wake up and follow a few simple commands but is unable to communicate. He keeps his eyes closed and is negativistic when his eyes are opened. His urinary tract infection is being treated appropriately. 3. On neurological examination, at this time, he is poorly responsive. He follows a few simple commands but is unable to communicate. Further mental status testing is impossible. He has problems with comprehension and expression of language.He has a trace right seventh central facial paresis. He however does not demonstrate any lateralizing findings on his motor, sensory, or reflex examination. 4. Laboratory data on my initial evaluation revealed that he was anemic with a hemoglobin of 11.5 G. His latest BUN was 42 and latest creatinine is 2.3. When he came in his CK was 2257 and it had normalized to 241. He was folic acid deficient with a folic acid level of 7.5. His RPR was positive in a low titre of 1:1. The FTA-ABS is reactive. 5. The urine analysis performed today reveals 3+ leukocyte esterase, 5-10 red blood cells and too numerous to count white blood cells per high-power field. 6. The MRI scan of the brain performed on 08/05/2019 revealed multiple acute infarcts involving both cerebral hemispheres, basal ganglia, and the left cerebellum. In addition multiple old small infarcts scattered in the brain were also seen. 7. The MRI scan of the brain repeated on 08/12/2019 revealed multiple new acute infarctions in multiple different vascular territories. 8. A CT of the brain done today reveals atrophy, deep white matter changes and old infarcts but no acute pathology. 9. Thus far cardiac monitoring has revealed no arrhythmia. 10. The patient's history, neurological examination, laboratory data, and imaging studies, most consistent with multiple showers of emboli to the brain over multiple different time periods. Leading to significant neurological dysfunction. 11. Patient also has a positive peripheral RPR and FTA-ABS. This is indicative of exposure to syphilis. Neurosyphilis should be excluded. 12. His recent decline in neurological function may be related to the acute urinary tract infection in addition to all the other problems that he has. He is also sedated now because of behavioral problems. Recommendations RECOMMENDATIONS: 1. Continue present management. 2. Transesophageal echocardiogram with bubble study should be performed to evaluate the patient for a cardiogenic source of emboli. The patient has agreed with it when he is lucid. If in the future there is a problem with obtaining consent then it should be noted that it is medically necessary to get the procedure done so that the patient can get adequate therapy. If not done the patient is at significant risk of having more strokes. 3. Agree with obtaining a lumbar puncture to evaluate the patient for neurosyphilis. 4. Continue physical and occupational therapy to mobilize patient. 5. Aggressive treatment of acute infectious process. 6. Folic acid 1 mg daily for folate deficiency. 7. Observe closely. Beka Smith M.D., M.S.P.H. Neurologist & Clinical Neurophysiologist Beka Smith MD Aug 15, 2019 13:49
--- NOTE | 2019-08-15 14:55 | Urology Progress Note ---
Assessment/Plan Assessment/Plan: 1. Urinary retention. 2. BPH history. 3. Probable neurogenic bladder. 4. Renal insufficiency acute on chronic. 5. Hematuria. dickson remains indwelling for now, replaced 08/11 hand irrigated and do PRN cont with flomax, proscar urecholine dose increased minimize seroquel repeat voiding trial later, once more alert and ambulatory cysto later f/u on last blood cx d/w Dr. Cervantes Subjective Allergies: Coded Allergies: No Known Allergies (Unverified , 07/21/19) Subjective all noted, no new complaints, dickson indwelling Objective Last 24 Hour Vital Signs Date Time Temp Pulse Resp B/P (MAP) Pulse Ox O2 Delivery O2 Flow Rate FiO2 08/15/19 12:00 98.2 94 20 161/93 (115) 98 08/15/19 09:00 Room Air 08/15/19 08:00 79 08/15/19 08:00 99.5 81 20 158/78 (104) 98 08/15/19 04:00 89 08/15/19 04:00 99.2 89 18 155/71 (99) 95 08/15/19 00:00 99.3 95 17 154/72 (99) 95 08/15/19 00:00 106 08/14/19 21:00 Room Air 08/14/19 20:00 101 08/14/19 20:00 99.1 95 17 151/59 (89) 96 08/14/19 18:30 139/83 08/14/19 18:30 71 139/83 08/14/19 16:00 76 08/14/19 16:00 97.5 71 20 139/83 (101) 99 Intake and Output 08/14/19 08/15/19 19:00 07:00 Intake Total 530.0 ml Output Total 1600 ml Balance 530.0 ml -1600 ml Intake Oral 120 ml IV Total 410.0 ml Output Urine Total 1600 ml Microbiology Date/Time Source Procedure Growth Status 08/13/19 09:25 Blood Blood Culture - Preliminary NO GROWTH AFTER 24 HOURS Resulted 07/21/19 17:35 Nasal Nares - Final Complete 07/21/19 17:35 Nasal Nares - Final Complete 08/13/19 11:10 Indwelling Cath Urine Culture - Final Morganella Morg Spp Morganii Complete Current Medications Medications (Trade) Dose Ordered Sig/Hanh Route PRN Reason Start Time Stop Time Status Last Admin Dose Admin Acetaminophen (Tylenol) 650 mg Q6H PRN ORAL Mild Pain/Temp > 100.5 08/13/19 15:23 09/12/19 15:22 Amlodipine Besylate (Norvasc) 10 mg DAILY ORAL 08/16/19 09:00 08/25/19 17:59 Bethanechol Chloride (Urecholine) 50 mg THREE TIMES A DAY ORAL 08/13/19 18:00 09/01/19 13:59 08/14/19 18:31 Bisacodyl (Dulcolax) 10 mg DAILYPRN PRN RECTAL Constipation 08/13/19 15:23 09/12/19 15:22 Clonidine HCl (Catapres TTS-3) 1 patch QWEEK TDERMAL 08/19/19 12:00 08/21/19 11:59 Clonidine HCl (Catapres tab) 0.2 mg Q2H PRN ORAL sbp>170 08/13/19 15:24 09/12/19 15:23 Finasteride (Proscar) 5 mg DAILY ORAL 08/14/19 09:00 08/27/19 08:59 08/14/19 09:53 Folic Acid (Folate) 1 mg DAILY ORAL 08/14/19 09:00 09/05/19 08:59 08/14/19 09:52 Haloperidol Lactate (Haldol) 2.5 mg Q6H PRN IM Agitation 08/15/19 12:15 09/14/19 12:14 Heparin Sodium (Porcine) (Heparin 5000 units/ml) 5,000 units EVERY 12 HOURS SUBQ 08/13/19 21:00 08/31/19 20:59 Hydralazine HCl (Apresoline) 10 mg Q2H PRN IV SBP>180 08/13/19 17:00 09/12/19 16:59 Hydralazine HCl (Apresoline) 100 mg BID ORAL 08/13/19 18:00 08/25/19 17:59 08/14/19 18:30 Piperacillin Sod/ Tazobactam Sod 3.375 gm/Sodium Chloride 110 ml @ 27.5 mls/hr Q8H IVPB 08/13/19 17:00 08/20/19 08:59 08/15/19 01:11 Quetiapine Fumarate (SEROqueL) 25 mg Q6H PRN ORAL For Anxiety 08/13/19 15:24 09/12/19 15:23 Tamsulosin HCl (Flomax) 0.4 mg BID ORAL 08/13/19 18:00 08/26/19 17:59 08/14/19 18:30 Laboratory Tests 08/15/19 05:34: Sodium Level 143, Potassium Level 3.8, Chloride Level 108H, Carbon Dioxide Level 22, Anion Gap 14, Blood Urea Nitrogen 40H, Creatinine 2.4H, Estimat Glomerular Filtration Rate , Glucose Level 98, Calcium Level 8.8 Height (Feet): 5 Height (Inches): 5.00 Weight (Pounds): 176 Objective exam stable dickson indwelling LuigishadKali MD Aug 15, 2019 14:55
--- NOTE | 2019-08-15 15:31 | Nephrology Progress Note ---
Assessment/Plan Assessment/Plan: A/P 1) Hypertension, benign - adjust meds as needed (2) Toxic metabolic encephalopathy (3) JERMAINE (acute kidney injury) on CKD 4 - Cr stable within baseline (4) Dehydration- prn IVFs (5) Urinary retention- per Urology Subjective Date patient seen: Aug 15, 2019 Time patient seen: 15:27 ROS Limited/Unobtainable: Yes Allergies: Coded Allergies: No Known Allergies (Unverified , 07/21/19) Subjective Patient resting in no distress Objective Last 24 Hour Vital Signs Date Time Temp Pulse Resp B/P (MAP) Pulse Ox O2 Delivery O2 Flow Rate FiO2 08/15/19 12:00 98.2 94 20 161/93 (115) 98 08/15/19 09:00 Room Air 08/15/19 08:00 79 08/15/19 08:00 99.5 81 20 158/78 (104) 98 08/15/19 04:00 89 08/15/19 04:00 99.2 89 18 155/71 (99) 95 08/15/19 00:00 99.3 95 17 154/72 (99) 95 08/15/19 00:00 106 08/14/19 21:00 Room Air 08/14/19 20:00 101 08/14/19 20:00 99.1 95 17 151/59 (89) 96 08/14/19 18:30 139/83 08/14/19 18:30 71 139/83 08/14/19 16:00 76 08/14/19 16:00 97.5 71 20 139/83 (101) 99 Intake and Output 08/14/19 08/15/19 19:00 07:00 Intake Total 530.0 ml Output Total 1600 ml Balance 530.0 ml -1600 ml Intake Oral 120 ml IV Total 410.0 ml Output Urine Total 1600 ml Laboratory Tests 08/15/19 05:34: Sodium Level 143, Potassium Level 3.8, Chloride Level 108H, Carbon Dioxide Level 22, Anion Gap 14, Blood Urea Nitrogen 40H, Creatinine 2.4H, Estimat Glomerular Filtration Rate , Glucose Level 98, Calcium Level 8.8 Height (Feet): 5 Height (Inches): 5.00 Weight (Pounds): 176 General Appearance: no apparent distress EENT: normal ENT inspection Neck: normal alignment, supple Cardiovascular: normal rate, regular rhythm Respiratory/Chest: lungs clear, normal breath sounds Abdomen: non tender, soft Edema: no edema noted Arm (L), no edema noted Arm (R), no edema noted Leg (L), no edema noted Leg (R), no edema noted Pedal (L), no edema noted Pedal (R), no edema noted Generalized Luan Oneill MD Aug 15, 2019 15:31
[2019-08-15 16:00] VITALS: BP 140/77
--- NOTE | 2019-08-15 16:25 | NUR ---
*-* INSURANCE *-* UPDATE CLINICALS HAVE BEEN FAXED TO: [facility] OPAL:PRIETO P: [phone] F: [phone]
--- NOTE | 2019-08-15 19:20 | Pulmonology Progress Note ---
Assessment/Plan Problems: (1) Rhabdomyolysis (2) JERMAINE (acute kidney injury) (3) Dehydration (4) Episode of generalized weakness (5) Weakness (6) Gait abnormality (7) Failure to thrive in adult (8) Hypertension, benign (9) Toxic metabolic encephalopathy (10) Bacteremia due to Staphylococcus (11) Positive RPR test (12) CVA (cerebral vascular accident) (13) Syphilis Assessment/Plan Assessment/Plan 1. Acute and chronic CVA, likely embolic 2. AMS, 2/2 above 3. 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 Dehydration/rhabdomyolysis/lactic acidosis - RESOLVED 5. Hyperproteinemia, possible myeloma 6. Hypertension - POORLY CONTROLLED 7. JERMAINE vs CKD, likely both 8. Obstructive uropathy 9. Generalized weakness 10. Anemia, FOBT neg PLAN: LESA to be done via 2 MD consent sunday Abx per ID, D/W Dr. Lion and gregorio covers neurosyphilis Per IR unable to do LP QT ok, Haldol 2.5 q6 PRN IM, Seroquel PO if able BP control PT/OT DVT Px: Hep SQ Dispo planning to SNF once acute issues resolved Subjective Allergies: Coded Allergies: No Known Allergies (Unverified , 07/21/19) Subjective Agitated pulling off tele no FC no CP no SOB 2 MD consent obtained for LESA but cannot be scheduled today Objective Last 24 Hour Vital Signs Date Time Temp Pulse Resp B/P (MAP) Pulse Ox O2 Delivery O2 Flow Rate FiO2 08/15/19 16:00 98.8 84 20 140/77 (98) 98 08/15/19 12:00 98.2 94 20 161/93 (115) 98 08/15/19 09:00 Room Air 08/15/19 08:00 79 08/15/19 08:00 99.5 81 20 158/78 (104) 98 08/15/19 04:00 89 08/15/19 04:00 99.2 89 18 155/71 (99) 95 08/15/19 00:00 99.3 95 17 154/72 (99) 95 08/15/19 00:00 106 08/14/19 21:00 Room Air 08/14/19 20:00 101 08/14/19 20:00 99.1 95 17 151/59 (89) 96 Intake and Output 08/14/19 08/15/19 19:00 07:00 Intake Total 530.0 ml Output Total 1600 ml Balance 530.0 ml -1600 ml Intake Oral 120 ml IV Total 410.0 ml Output Urine Total 1600 ml General Appearance: other - agitated HEENT: normocephalic, atraumatic, anicteric, mucous membranes moist Respiratory/Chest: chest wall non-tender, lungs clear, normal breath sounds, no respiratory distress, no accessory muscle use Cardiovascular: normal peripheral pulses, normal rate, regular rhythm Abdomen: normal bowel sounds, soft, non tender, no organomegaly, non distended , no mass Extremities: no cyanosis, no clubbing, no edema Microbiology Date/Time Source Procedure Growth Status 08/13/19 09:25 Blood Blood Culture - Preliminary NO GROWTH AFTER 24 HOURS Resulted 08/13/19 09:10 Blood Blood Culture - Preliminary NO GROWTH AFTER 24 HOURS Resulted 08/13/19 11:10 Indwelling Cath Urine Culture - Final Morganella Morg Spp Morganii Complete Laboratory Tests 08/15/19 05:34: Sodium Level 143, Potassium Level 3.8, Chloride Level 108H, Carbon Dioxide Level 22, Anion Gap 14, Blood Urea Nitrogen 40H, Creatinine 2.4H, Estimat Glomerular Filtration Rate , Glucose Level 98, Calcium Level 8.8 Current Medications Medications (Trade) Dose Ordered Sig/Hanh Route PRN Reason Start Time Stop Time Status Last Admin Dose Admin Acetaminophen (Tylenol) 650 mg Q6H PRN ORAL Mild Pain/Temp > 100.5 08/13/19 15:23 09/12/19 15:22 Amlodipine Besylate (Norvasc) 10 mg DAILY ORAL 08/16/19 09:00 08/25/19 17:59 Bethanechol Chloride (Urecholine) 50 mg THREE TIMES A DAY ORAL 08/13/19 18:00 09/01/19 13:59 08/15/19 16:51 Bisacodyl (Dulcolax) 10 mg DAILYPRN PRN RECTAL Constipation 08/13/19 15:23 09/12/19 15:22 Clonidine HCl (Catapres TTS-3) 1 patch QWEEK TDERMAL 08/19/19 12:00 08/21/19 11:59 Clonidine HCl (Catapres tab) 0.2 mg Q2H PRN ORAL sbp>170 08/13/19 15:24 09/12/19 15:23 Finasteride (Proscar) 5 mg DAILY ORAL 08/14/19 09:00 08/27/19 08:59 08/14/19 09:53 Folic Acid (Folate) 1 mg DAILY ORAL 08/14/19 09:00 09/05/19 08:59 08/14/19 09:52 Haloperidol Lactate (Haldol) 2.5 mg Q6H PRN IM Agitation 08/15/19 12:15 09/14/19 12:14 Heparin Sodium (Porcine) (Heparin 5000 units/ml) 5,000 units EVERY 12 HOURS SUBQ 08/13/19 21:00 08/31/19 20:59 Hydralazine HCl (Apresoline) 10 mg Q2H PRN IV SBP>180 08/13/19 17:00 09/12/19 16:59 Hydralazine HCl (Apresoline) 100 mg BID ORAL 08/13/19 18:00 08/25/19 17:59 08/14/19 18:30 Piperacillin Sod/ Tazobactam Sod 3.375 gm/Sodium Chloride 110 ml @ 27.5 mls/hr Q8H IVPB 08/13/19 17:00 08/20/19 08:59 08/15/19 17:13 Quetiapine Fumarate (SEROqueL) 25 mg Q6H PRN ORAL For Anxiety 08/13/19 15:24 09/12/19 15:23 Tamsulosin HCl (Flomax) 0.4 mg BID ORAL 08/13/19 18:00 08/26/19 17:59 08/14/19 18:30 Shiraz Cervantes MD Aug 15, 2019 19:20
--- NOTE | 2019-08-15 19:57 | NUR ---
NURSE NOTES: Received pt and report from ARELY Buitrago. Observed pt resting in bed with both eyes closed; arousable to voice. Pt is A/Ox1. Pt has a med-surg order per Dr. Kidd; awaiting for room assignment. IV site intact, asymptomatic and patent. Pt has a Walsh placed for retention; patent and urine is yellow. Pt is on non-behavioral bilateral soft wrist restraints; sensations and pulses are present, skin is intact, no swelling noted. Bed is in the lowest position and locked. Call light and bedside table is within reach. No signs/symptoms of acute distress noted at this time. Will continue plan of care.
[2019-08-15 20:00] VITALS: BP 158/88
[2019-08-16] VITALS: BP 156/83
[2019-08-16] MEDS: Piperacillin/Tazobactam 3.375 GM in NS 110 ML IVPB SCH ×3 (01:26→17:20)
--- NOTE | 2019-08-16 02:28 | NUR ---
TRANSFER TO FLOOR: Patient transferred to [facility], per Dr. Nichols. Pt transferred to room without any incident. Report given to ARELY Davis. Belongings list checked and signed. Belongings and medications given to ARELY Davis. Orders transferred. Pt is in stable condition. Plan of care endorsed.
--- NOTE | 2019-08-16 02:38 | NUR ---
NURSE NOTES: Received report from ARELY Olson. Patient is in bed sleeping. On room air with no signs of distress or SOB. IV intact and patent. Walsh in place and draining yellow urine. Bilateral soft wrist restraints in progress. Bilat pulses present, skin is intact. Bed locked and in lowest position. Belongings checked with ARELY Olson. Call light is within reach. Will continue to monitor.
[2019-08-16 04:00] VITALS: BP 171/77
[2019-08-16] MEDS: cloNIDine 0.2mg Tab ORAL PRN (05:26)
--- NOTE | 2019-08-16 07:00 | NUR ---
NURSE NOTES: Handoff received from ARELY Davis. Patient received in bilateral wrist restraints. Patient sleeping in bed with no acute signs of distress noted. Patient has Walsh catheter patent and draining. IV site is clean dry and intact, saline locked. Bed in the low and locked position with call light on the bed within reach. will continue to monitor patient.
--- NOTE | 2019-08-16 07:23 | NUR ---
HAND-OFF: Report given to ARELY Katz.
[2019-08-16 08:00] VITALS: BP 167/79
--- NOTE | 2019-08-16 08:23 | Urology Progress Note ---
Assessment/Plan Assessment/Plan: 1. Urinary retention. 2. BPH history. 3. Probable neurogenic bladder. 4. Renal insufficiency acute on chronic. 5. Hematuria. dickson remains indwelling for now, replaced 08/11 secure to pt's leg hand irrigated and do PRN cont with flomax, proscar urecholine dose increased minimize seroquel on abx repeat voiding trial later, once more alert and ambulatory cysto later f/u on last blood cx d/w Dr. Cervantes Subjective Allergies: Coded Allergies: No Known Allergies (Unverified , 07/21/19) Subjective all noted, no new complaints, dickson indwelling Objective Last 24 Hour Vital Signs Date Time Temp Pulse Resp B/P (MAP) Pulse Ox O2 Delivery O2 Flow Rate FiO2 08/16/19 05:26 171/77 08/16/19 04:00 98.8 87 20 171/77 (108) 97 08/16/19 00:00 98.4 84 16 156/83 (107) 98 08/15/19 21:00 Room Air 08/15/19 20:00 98.2 90 18 158/88 (111) 96 08/15/19 16:00 98.8 84 20 140/77 (98) 98 08/15/19 12:00 98.2 94 20 161/93 (115) 98 08/15/19 09:00 Room Air Intake and Output 08/15/19 08/16/19 19:00 07:00 Intake Total 340 ml Output Total 400 ml Balance -60 ml Intake Oral 340 ml Output Urine Total 400 ml Microbiology Date/Time Source Procedure Growth Status 08/13/19 09:25 Blood Blood Culture - Preliminary NO GROWTH AFTER 48 HOURS Resulted 07/21/19 17:35 Nasal Nares - Final Complete 07/21/19 17:35 Nasal Nares - Final Complete 08/13/19 11:10 Indwelling Cath Urine Culture - Final Morganella Morg Spp Morganii Complete Current Medications Medications (Trade) Dose Ordered Sig/Hanh Route PRN Reason Start Time Stop Time Status Last Admin Dose Admin Acetaminophen (Tylenol) 650 mg Q6H PRN ORAL Mild Pain/Temp > 100.5 08/16/19 03:30 09/12/19 15:22 Amlodipine Besylate (Norvasc) 10 mg DAILY ORAL 08/16/19 09:00 08/25/19 17:59 Bethanechol Chloride (Urecholine) 50 mg THREE TIMES A DAY ORAL 08/16/19 09:00 09/01/19 13:59 Bisacodyl (Dulcolax) 10 mg DAILYPRN PRN RECTAL Constipation 08/16/19 15:30 09/12/19 15:22 Clonidine HCl (Catapres TTS-3) 1 patch QWEEK TDERMAL 08/19/19 12:00 08/21/19 11:59 Clonidine HCl (Catapres tab) 0.2 mg Q2H PRN ORAL sbp>170 08/16/19 03:30 09/12/19 15:23 08/16/19 05:26 Finasteride (Proscar) 5 mg DAILY ORAL 08/16/19 09:00 08/27/19 08:59 Folic Acid (Folate) 1 mg DAILY ORAL 08/16/19 09:00 09/05/19 08:59 Haloperidol Lactate (Haldol) 2.5 mg Q6H PRN IM Agitation 08/16/19 06:15 09/14/19 12:14 Heparin Sodium (Porcine) (Heparin 5000 units/ml) 5,000 units EVERY 12 HOURS SUBQ 08/16/19 09:00 08/31/19 20:59 Hydralazine HCl (Apresoline) 10 mg Q2H PRN IV SBP>180 08/16/19 03:00 09/12/19 16:59 Hydralazine HCl (Apresoline) 100 mg BID ORAL 08/16/19 09:00 08/25/19 17:59 Piperacillin Sod/ Tazobactam Sod 3.375 gm/Sodium Chloride 110 ml @ 27.5 mls/hr Q8H IVPB 08/16/19 09:00 08/20/19 08:59 Quetiapine Fumarate (SEROqueL) 25 mg Q6H PRN ORAL For Anxiety 08/16/19 03:30 09/12/19 15:23 Tamsulosin HCl (Flomax) 0.4 mg BID ORAL 08/16/19 09:00 08/26/19 17:59 Height (Feet): 5 Height (Inches): 5.00 Weight (Pounds): 176 Objective exam stable dickson indwelling Kali Serrano MD Aug 16, 2019 08:23
[2019-08-16] MEDS: Bethanechol 25mg Tab ORAL SCH ×5 (08:52→17:38)
[2019-08-16] MEDS: Tamsulosin 0.4mg cap ORAL SCH ×4 (08:52→17:37)
[2019-08-16] MEDS: HydrALAZINE 50mg tab ORAL SCH ×4 (08:53→21:25)
[2019-08-16] MEDS: Heparin 5000 units/ml inj SUBQ SCH ×2 (08:53→21:26)
--- NOTE | 2019-08-16 09:12 | NUR ---
NURSE NOTES: Patient in bed, not compliant with medications. Patient refusing to obey commands, including taking medications. Patient responding to stimuli, patient moves feet away when feet are tickled. Cannot get patient to respond verbally, instead patient shook head to indicate a no response to medications. Medications crushed and placed in apple sauce, medications will have to be wasted as cannot return to pyxus.
--- NOTE | 2019-08-16 10:40 | NUR ---
NURSE NOTES: waiting for pharmacy to deliver 0900 antibiotic.
[2019-08-16 12:00] VITALS: BP 162/81
--- NOTE | 2019-08-16 12:44 | NUR ---
NURSE NOTES: Patient continues to be non-complaint, charge nurse Mary attempted to feed patient. Patient offered chicken and spat it out, then offered mashed potatoes, again patient takes a bite then spits it out.
--- NOTE | 2019-08-16 12:50 | NUR ---
CHARGE NURSE NOTE: Pt refuses his meds, food, drink. No IV fluids ordered. was called, message left ( is covering .)
[2019-08-16] MEDS ORDERED: Tubing IV Secondary IV ONE (13:17)
[2019-08-16] MEDS ORDERED: NS 275ml ONE (13:17)
--- NOTE | 2019-08-16 13:20 | Neurology Progress Note ---
Interim History Interim History Interim History Mr. Reji Au is a 79-year-old, right-handed, black gentleman, who has a relatively benign past history. He was brought to the hospital on 07/21/2019 after he had apparently fallen down and was on the floor of his apartment for 4 days. He himself has no recollection of what happened. Since he has been here he has been noted to have some gait problems. He has been non-verbal and negativistic as per his nurse. He does wake up and follow a few simple commands but is unable to communicate. He keeps his eyes closed and is negativistic when his eyes are opened. His urinary tract infection is being treated appropriately. He has still not had his LESA or lumbar puncture performed. Review of Systems Neuro Review of Systems Benign. Objective Physical Exam Last Vital Signs Date Time Temp Pulse Resp B/P (MAP) Pulse Ox O2 Delivery O2 Flow Rate FiO2 08/16/19 12:00 97.5 67 18 162/81 (108) 95 08/16/19 09:00 Room Air Neurologic Exam Objective PHYSICAL EXAMINATION: GENERAL: He is a well-developed, relatively well-nourished, Black gentleman, lying in bed in no acute distress. HEAD: Normocephalic and atraumatic. NECK: No neck rigidity was observed. EENT examination: Benign. NEUROLOGICAL EXAMINATION: Mental status examination: He was poorly responsive. He followed a few simple commands but was unable to communicate. Further mental status testing was impossible. Frontal systems tasks: He was unable to cooperate. Speech: He was nonverbal. Language: He was able to comprehend minimally but was unable to express himself. Cranial nerve examination: II: He kept his eyes shut. III, IV & : The external ocular movements were present on oculocephalic maneuvers. The pupils were 3 mm in diameter and reactive sluggishly to light. V-VII: The corneal reflexes were equal bilaterally. He had a trace right seventh central facial paresis. VIII: He was able to hear and had no nystagmus. IX: Could not be tested. X: Could not be tested. XI: The sternocleidomastoids and trapezii functioned. XII: The tongue was in the midline. Motor system: The tone was normal in all 4 extremities. Examination of muscle mass revealed no focal wasting. Examination of power was impossible to perform however he moved all 4 extremities on deep painful stimulation and gave me good hand supervisor residential bilaterally. Sensory examination: He was able to localize deep pain. Reflexes: 2+ and bilaterally symmetrical at the biceps, triceps, brachioradialis and knees. 0 at both ankles. The plantar responses were flexor. Coordination: Could not be tested Stance: Could not be tested Gait: Could not be tested Impression/Recommendations Diagnostic Impression DIAGNOSTIC IMPRESSION: 1. Mr. Reji Au is a 79-year-old, right-handed, black gentleman, who has a relatively benign past history. He was brought to the hospital on 07/21/2019 after he had apparently fallen down and was on the floor of his apartment for 4 days. He himself has no recollection of what happened. Since he has been here he has been noted to have some gait problems. 2. He has been non-verbal and negativistic as per his nurse. He does wake up and follow a few simple commands but is unable to communicate. He keeps his eyes closed and is negativistic when his eyes are opened. His urinary tract infection is being treated appropriately. He has still not had his LESA or lumbar puncture performed. 3. On neurological examination, at this time, he is poorly responsive. He follows a few simple commands but is unable to communicate. Further mental status testing is impossible. He has problems with comprehension and expression of language. He has a trace right seventh central facial paresis. He however does not demonstrate any lateralizing findings on his motor, sensory, or reflex examination. 4. Laboratory data on my initial evaluation revealed that he was anemic with a hemoglobin of 11.5 G. His latest BUN was 42 and latest creatinine is 2.3. When he came in his CK was 2257 and it had normalized to 241. He was folic acid deficient with a folic acid level of 7.5. His RPR was positive in a low titre of 1:1. The FTA-ABS is reactive. 5. The urine analysis performed today reveals 3+ leukocyte esterase, 5-10 red blood cells and too numerous to count white blood cells per high-power field. 6. The MRI scan of the brain performed on 08/05/2019 revealed multiple acute infarcts involving both cerebral hemispheres, basal ganglia, and the left cerebellum. In addition multiple old small infarcts scattered in the brain were also seen. 7. The MRI scan of the brain repeated on 08/12/2019 revealed multiple new acute infarctions in multiple different vascular territories. 8. A CT of the brain done today reveals atrophy, deep white matter changes and old infarcts but no acute pathology. 9. Prolonged cardiac monitoring has revealed no arrhythmia. 10. The patient's history, neurological examination, laboratory data, and imaging studies, most consistent with multiple showers of emboli to the brain over multiple different time periods. Leading to significant neurological dysfunction. 11. Patient also has a positive peripheral RPR and FTA-ABS. This is indicative of exposure to syphilis. Neurosyphilis should be excluded. 12. His recent decline in neurological function may be related to the acute urinary tract infection in addition to all the other problems that he has. He is also sedated yesterday for behavioral problems. Recommendations RECOMMENDATIONS: 1. Continue present management. 2. Transesophageal echocardiogram with bubble study should be performed to evaluate the patient for a cardiogenic source of emboli. The patient has agreed with it when he is lucid. If in the future there is a problem with obtaining consent then it should be noted that it is medically necessary to get the procedure done so that the patient can get adequate therapy. If not done the patient is at significant risk of having more strokes. 3. Agree with obtaining a lumbar puncture to evaluate the patient for neurosyphilis. 4. Continue physical and occupational therapy to mobilize patient. 5. Aggressive treatment of acute infectious process. 6. Folic acid 1 mg daily for folate deficiency. 7. Observe closely. Beka Smith M.D., M.S.P.H. Neurologist & Clinical Neurophysiologist Beka Smith MD Aug 16, 2019 13:20
--- NOTE | 2019-08-16 13:42 | Nephrology Progress Note ---
Assessment/Plan Assessment/Plan: A/P 1) Hypertension, benign - elevated. Increase hydralazine (2) Toxic metabolic encephalopathy (3) JERMAINE (acute kidney injury) on CKD 4 - Cr stable within baseline - If Cr >2,4 lety then restart IVFs (4) Dehydration- prn IVFs (5) Urinary retention- per Urology Subjective Date patient seen: Aug 16, 2019 Time patient seen: 13:40 ROS Limited/Unobtainable: Yes Allergies: Coded Allergies: No Known Allergies (Unverified , 07/21/19) Subjective Patient resting Objective Last 24 Hour Vital Signs Date Time Temp Pulse Resp B/P (MAP) Pulse Ox O2 Delivery O2 Flow Rate FiO2 08/16/19 12:00 97.5 67 18 162/81 (108) 95 08/16/19 09:00 Room Air 08/16/19 09:00 167/79 08/16/19 09:00 67 167/79 08/16/19 08:00 98.0 67 18 167/79 (108) 96 08/16/19 05:26 171/77 08/16/19 04:00 98.8 87 20 171/77 (108) 97 08/16/19 00:00 98.4 84 16 156/83 (107) 98 08/15/19 21:00 Room Air 08/15/19 20:00 98.2 90 18 158/88 (111) 96 08/15/19 16:00 98.8 84 20 140/77 (98) 98 Intake and Output 08/15/19 08/16/19 19:00 07:00 Intake Total 340 ml Output Total 400 ml Balance -60 ml Intake Oral 340 ml Output Urine Total 400 ml Height (Feet): 5 Height (Inches): 5.00 Weight (Pounds): 176 General Appearance: no apparent distress EENT: normal ENT inspection Neck: normal alignment, supple Cardiovascular: regular rhythm Respiratory/Chest: lungs clear, normal breath sounds Abdomen: non tender, soft Edema: no edema noted Arm (L), no edema noted Arm (R), no edema noted Leg (L), no edema noted Leg (R), no edema noted Pedal (L), no edema noted Pedal (R), no edema noted Generalized Luan Oneill MD Aug 16, 2019 13:42
--- NOTE | 2019-08-16 14:50 | NUR ---
CHARGE NURSE NOTE: BP 162/80. Pt does not take his meds, resistive to care. was called second time, message left.
--- NOTE | 2019-08-16 14:58 | NUR ---
NURSE NOTES: Charge Nurse was able to get patient to take hydralazine in apple sauce.
--- NOTE | 2019-08-16 15:41 | Cardiac Electrophysiology PN ---
Assessment/Plan Status Narrative MRI Brain: Multiple foci of restricted diffusion, as described. Most of these were evident on prior study of 08/05/2019, indicating that these are residual subacute infarcts. However, there are a few new areas as detailed above, indicating lacunar infarcts that have occurred since the previous study Assessment/Plan 1. 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 EF 60%. LESA pending Sunday Off anticoagulation to prevent hemorrhagic conversion of CVA until cleared by Neurology.Remained in SR on tele. Agree that patient will benefit from LESA 2. Hypertension. On Norvasc 10 mg daily, hydralazine 100 mg b.i.d., clonidine patch weekly and p.r.n. clonidine 3. Benign prostatic hypertrophy on Flomax and Proscar. 4. Dementia, on Seroquel per Dr. Mandel. 5. Acute rhabdomyolysis. 6. Staph bacteremia.On Abx 7. Stage 3 chronic kidney disease. 8. Positive RPR, FTA-ABS pending 9. AMS. ?due to CVA. FU Dr Sarah CARTER RN and Dr. Cervantes Subjective Subjective Off tele, confused in restraints.RN at bedside Objective Last 24 Hour Vital Signs Date Time Temp Pulse Resp B/P (MAP) Pulse Ox O2 Delivery O2 Flow Rate FiO2 08/16/19 14:58 162/81 08/16/19 12:00 97.5 67 18 162/81 (108) 95 08/16/19 09:00 Room Air 08/16/19 09:00 167/79 08/16/19 09:00 67 167/79 08/16/19 08:00 98.0 67 18 167/79 (108) 96 08/16/19 05:26 171/77 08/16/19 04:00 98.8 87 20 171/77 (108) 97 08/16/19 00:00 98.4 84 16 156/83 (107) 98 08/15/19 21:00 Room Air 08/15/19 20:00 98.2 90 18 158/88 (111) 96 08/15/19 16:00 98.8 84 20 140/77 (98) 98 Intake and Output 08/15/19 08/16/19 19:00 07:00 Intake Total 340 ml Output Total 400 ml Balance -60 ml Intake Oral 340 ml Output Urine Total 400 ml Objective HEAD AND NECK: No JVD. LUNGS: Clear. CARDIOVASCULAR: Regular S1 and S2 with no gallop or murmur. ABDOMEN: Soft and nontender. EXTREMITIES: No pitting edema. Lance Nichols MD Aug 16, 2019 15:41
--- NOTE | 2019-08-16 15:55 | NUR ---
CASE MANAGEMENT: REVIEW SI: DEHYDRATION . BACTEREMIA . ENCEPHALOPATHY . RHABDOMYOLYSIS T 97.5 HR 67 RR 18 BP 171/77 SAT 95% ROOM AIR IS: ZOSYN IV Q8/HR D5 NS IVF @ 75ML/HR HEPARIN SUBQ Q12HR HYDRALAZINE 100MG PO Q8HR CLONIDINE PATCH QWEEK PT DAILY GAIT TRAINING MED/SURG STATUS DCP: PATIENT IS FROM HOME . SEEKING SNF PLACEMENT
[2019-08-16 16:00] VITALS: BP 166/74
[2019-08-16] MEDS: D5NS 1,000 ML IV SCH (17:21)
--- NOTE | 2019-08-16 18:10 | NUR ---
P.T. NOTES ADDENDUM S/P: APPROACHED PATIENT'S ROOM IN THE PM. PATIENT FOUND LYING IN A SEMI-GASCA'S POSITION IN BED. U/A TO WAKE PATIENT UP. RN NOTIFIED. WILL F/U NEXT TX. TIME AND CONT W/P.T. PLAN. RSABADO.
--- NOTE | 2019-08-16 19:07 | Infectious Diseases Prog Note ---
Assessment/Plan Problems: (1) Fever Assessment & Plan: source suspect CAUTI with morganella morganii , already on zosyn , CXR is negative for any infiltrates, monitor blood culture x2 , will treat with zosyn for two weeks (2) Positive RPR test Assessment & Plan: with low titer and reactive FTA-ABS , rule out neurosyphilis , LP was NOT done since he was altered as per radiologist , still not following commands . TPPA serum is pending . screening for HIV is negative . 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 repeated blood cultures so far have been negative, with negative JOHN, and RF screening , recommend LESA to better evaluate his valves . doesn't meet criteria for infectious endocarditis (4) CKD (chronic kidney disease) stage 3, GFR 30-59 ml/min Assessment & Plan: avoid nephrotoxics, close monitoring of renal function, follow up with nephrology (5) Failure to thrive in adult Assessment & Plan: etiology? dementia possibly, screening for HIV is negative , may need placement (6) Encephalopathy acute Assessment & Plan: recurrent CVA, VS meds side effect , VS metabolic. already on wide spectrum antibiotics . LP was not done due to altered menta status (7) Urinary retention Assessment & Plan: S/P dickson catheter placement , urology is following Subjective ROS Limited/Unobtainable: Yes Allergies: Coded Allergies: No Known Allergies (Unverified , 07/21/19) Subjective He was resting in bed comfortable, not agitated , awake but unresponsive to verbal commands , no cough or SOB, no nausea or vomiting , no diarrhea , NO LP was done since he was altered and not following commands . had Dickson catheter placed in on 08/11/19 Objective Vital Signs Last 24 Hour Vital Signs Date Time Temp Pulse Resp B/P (MAP) Pulse Ox O2 Delivery O2 Flow Rate FiO2 08/16/19 16:00 97.9 69 17 166/74 (104) 97 08/16/19 14:58 162/81 08/16/19 12:00 97.5 67 18 162/81 (108) 95 08/16/19 09:00 Room Air 08/16/19 09:00 167/79 08/16/19 09:00 67 167/79 08/16/19 08:00 98.0 67 18 167/79 (108) 96 08/16/19 05:26 171/77 08/16/19 04:00 98.8 87 20 171/77 (108) 97 08/16/19 00:00 98.4 84 16 156/83 (107) 98 08/15/19 21:00 Room Air 08/15/19 20:00 98.2 90 18 158/88 (111) 96 Height (Feet): 5 Height (Inches): 5.00 Weight (Pounds): 176 General Appearance: WD/WN, no acute distress HEENT: normocephalic, atraumatic, anicteric, mucous membranes moist, PERRL Respiratory/Chest: chest wall non-tender, lungs clear, normal breath sounds, no respiratory distress, no accessory muscle use Cardiovascular: normal peripheral pulses, normal rate, regular rhythm, no gallop/murmur, no JVD Abdomen: normal bowel sounds, soft, non tender, no organomegaly, non distended , no mass, no scars Genitourinary: normal external genitalia Extremities: no cyanosis, no clubbing Skin: no rash, no lesions, no ulcers Neurologic/Psychiatric: alert Lymphatic: no neck adenopathy, no groin adenopathy Musculoskeletal: normal muscle bulk, no effusion Current Medications Medications (Trade) Dose Ordered Sig/Hanh Route PRN Reason Start Time Stop Time Status Last Admin Dose Admin Acetaminophen (Tylenol) 650 mg Q6H PRN ORAL Mild Pain/Temp > 100.5 08/16/19 03:30 09/12/19 15:22 Amlodipine Besylate (Norvasc) 10 mg DAILY ORAL 08/16/19 09:00 08/25/19 17:59 Bethanechol Chloride (Urecholine) 50 mg THREE TIMES A DAY ORAL 08/16/19 09:00 09/01/19 13:59 08/16/19 17:38 Bisacodyl (Dulcolax) 10 mg DAILYPRN PRN RECTAL Constipation 08/16/19 15:30 09/12/19 15:22 Clonidine HCl (Catapres TTS-3) 1 patch QWEEK TDERMAL 08/19/19 12:00 08/21/19 11:59 Clonidine HCl (Catapres tab) 0.2 mg Q2H PRN ORAL sbp>170 08/16/19 03:30 09/12/19 15:23 08/16/19 05:26 Dextrose/Sodium Chloride 1,000 ml @ 75 mls/hr [id number] IV 08/16/19 16:00 09/15/19 15:59 08/16/19 17:21 Finasteride (Proscar) 5 mg DAILY ORAL 08/16/19 09:00 08/27/19 08:59 Folic Acid (Folate) 1 mg DAILY ORAL 08/16/19 09:00 09/05/19 08:59 Haloperidol Lactate (Haldol) 2.5 mg Q6H PRN IM Agitation 08/16/19 06:15 09/14/19 12:14 Heparin Sodium (Porcine) (Heparin 5000 units/ml) 5,000 units EVERY 12 HOURS SUBQ 08/16/19 09:00 08/31/19 20:59 08/16/19 08:53 Hydralazine HCl (Apresoline) 10 mg Q2H PRN IV SBP>180 08/16/19 03:00 09/12/19 16:59 Hydralazine HCl (Apresoline) 100 mg Q8HR ORAL 08/16/19 14:00 09/15/19 13:59 08/16/19 14:58 Piperacillin Sod/ Tazobactam Sod 3.375 gm/Sodium Chloride 110 ml @ 27.5 mls/hr Q8H IVPB 08/16/19 09:00 08/20/19 08:59 08/16/19 17:20 Quetiapine Fumarate (SEROqueL) 25 mg Q6H PRN ORAL For Anxiety 08/16/19 03:30 09/12/19 15:23 Tamsulosin HCl (Flomax) 0.4 mg BID ORAL 08/16/19 09:00 08/26/19 17:59 08/16/19 17:37 Anastasia Lion M.D. Aug 16, 2019 19:07
--- NOTE | 2019-08-16 19:20 | NUR ---
NURSE NOTES: Received pt from ARELY Katz. Pt awake and verbally responsive. On room air. IV site intact and infusing IVF. Denies pain or SOB. Pt is on soft wrist restraints and skin under the restraints intact. Walsh intact and draining urine well. Bed locked, lowest position, alarm on, call light within reach. Will continue to monitor.
--- NOTE | 2019-08-16 19:23 | NUR ---
HAND-OFF: Report given to ARELY Barrett.
[2019-08-16 20:00] VITALS: BP 161/71
--- NOTE | 2019-08-16 21:43 | Pulmonology Progress Note ---
Assessment/Plan Assessment/Plan Assessment/Plan 1. Acute and chronic CVA, likely embolic 2. AMS, 2/2 above 3. 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 Dehydration/rhabdomyolysis/lactic acidosis - RESOLVED 5. Hyperproteinemia, possible myeloma 6. Hypertension - POORLY CONTROLLED 7. JERMAINE vs CKD, likely both 8. Obstructive uropathy 9. Generalized weakness 10. Anemia, FOBT neg PLAN: LESA to be done via 2 MD consent sunday Abx per ID, D/W Dr. Lion and gregorio covers neurosyphilis Per IR unable to do LP QT ok, Haldol 2.5 q6 PRN IM, Seroquel PO if able BP control PT/OT DVT Px: Hep SQ Dispo planning to SNF once acute issues resolved Subjective ROS Limited/Unobtainable: Yes HEENT: Repors: no symptoms Respiratory: Reports: no symptoms Cardiovascular: Reports: no symptoms Allergies: Coded Allergies: No Known Allergies (Unverified , 07/21/19) Subjective awake communicates and follows commands little confused at times no distress no bleeding no nv no cp reported Objective Last 24 Hour Vital Signs Date Time Temp Pulse Resp B/P (MAP) Pulse Ox O2 Delivery O2 Flow Rate FiO2 08/16/19 21:25 161/70 08/16/19 20:00 97.9 79 22 161/71 (101) 96 08/16/19 16:00 97.9 69 17 166/74 (104) 97 08/16/19 14:58 162/81 08/16/19 12:00 97.5 67 18 162/81 (108) 95 08/16/19 09:00 Room Air 08/16/19 09:00 167/79 08/16/19 09:00 67 167/79 08/16/19 08:00 98.0 67 18 167/79 (108) 96 08/16/19 05:26 171/77 08/16/19 04:00 98.8 87 20 171/77 (108) 97 08/16/19 00:00 98.4 84 16 156/83 (107) 98 Intake and Output 08/15/19 08/16/19 19:00 07:00 Intake Total 340 ml Output Total 400 ml Balance -60 ml Intake Oral 340 ml Output Urine Total 400 ml General Appearance: WD/WN Respiratory/Chest: lungs clear, normal breath sounds Cardiovascular: normal rate, regular rhythm Abdomen: soft, non tender, no organomegaly Neurologic/Psychiatric: alert, disoriented Lymphatic: no neck adenopathy Musculoskeletal: normal muscle bulk Current Medications Medications (Trade) Dose Ordered Sig/Hanh Route PRN Reason Start Time Stop Time Status Last Admin Dose Admin Acetaminophen (Tylenol) 650 mg Q6H PRN ORAL Mild Pain/Temp > 100.5 08/16/19 03:30 09/12/19 15:22 Amlodipine Besylate (Norvasc) 10 mg DAILY ORAL 08/16/19 09:00 08/25/19 17:59 Bethanechol Chloride (Urecholine) 50 mg THREE TIMES A DAY ORAL 08/16/19 09:00 09/01/19 13:59 08/16/19 17:38 Bisacodyl (Dulcolax) 10 mg DAILYPRN PRN RECTAL Constipation 08/16/19 15:30 09/12/19 15:22 Clonidine HCl (Catapres TTS-3) 1 patch QWEEK TDERMAL 08/19/19 12:00 08/21/19 11:59 Clonidine HCl (Catapres tab) 0.2 mg Q2H PRN ORAL sbp>170 08/16/19 03:30 09/12/19 15:23 08/16/19 05:26 Dextrose/Sodium Chloride 1,000 ml @ 75 mls/hr [id number] IV 08/16/19 16:00 09/15/19 15:59 08/16/19 17:21 Finasteride (Proscar) 5 mg DAILY ORAL 08/16/19 09:00 08/27/19 08:59 Folic Acid (Folate) 1 mg DAILY ORAL 08/16/19 09:00 09/05/19 08:59 Haloperidol Lactate (Haldol) 2.5 mg Q6H PRN IM Agitation 08/16/19 06:15 09/14/19 12:14 Heparin Sodium (Porcine) (Heparin 5000 units/ml) 5,000 units EVERY 12 HOURS SUBQ 08/16/19 09:00 08/31/19 20:59 08/16/19 21:26 Hydralazine HCl (Apresoline) 10 mg Q2H PRN IV SBP>180 08/16/19 03:00 09/12/19 16:59 Hydralazine HCl (Apresoline) 100 mg Q8HR ORAL 08/16/19 14:00 09/15/19 13:59 08/16/19 21:25 Piperacillin Sod/ Tazobactam Sod 3.375 gm/Sodium Chloride 110 ml @ 27.5 mls/hr Q8H IVPB 08/16/19 09:00 08/20/19 08:59 08/16/19 17:20 Quetiapine Fumarate (SEROqueL) 25 mg Q6H PRN ORAL For Anxiety 08/16/19 03:30 09/12/19 15:23 Tamsulosin HCl (Flomax) 0.4 mg BID ORAL 08/16/19 09:00 08/26/19 17:59 08/16/19 17:37 Little Flores DO Aug 16, 2019 21:43
[2019-08-17] VITALS: BP 160/82
[2019-08-17] MEDS: Piperacillin/Tazobactam 3.375 GM in NS 110 ML IVPB SCH ×3 (01:12→17:56)
--- NOTE | 2019-08-17 02:45 | Progress Note ---
DATE: 08/16/2019 SUBJECTIVE: The patient is in no acute distress. Compliant with medications. MENTAL STATUS EXAMINATION: The patient is having waxing and waning consciousness. He is confused. Mood is neutral to anxious. Affect is flat. Thought process, there is a paucity of thought content. ASSESSMENT: 1. Acute encephalopathy. 2. UTI. PLAN: We will continue Nury Mandel M.D. DR: ANUSHA JOB#: [id number] CC: THU
[2019-08-17 04:00] VITALS: BP 154/70
[2019-08-17] MEDS: HydrALAZINE 50mg tab ORAL SCH ×3 (05:48→21:26)
[2019-08-17] MEDS: D5NS 1,000 ML IV SCH ×2 (05:48→18:04)
[2019-08-17 07:35] LABS: ANION GAP 14 mmol/L (5-15); BLOOD UREA NITROGEN 35 mg/dL (7-18); CALCIUM 8.9 MG/DL (8.5-10.1); CARBON DIOXIDE 22 MMOL/L (21-32); CHLORIDE 108 MMOL/L (98-107); CREATININE 2.1 MG/DL (0.55-1.30); POTASSIUM 3.4 MMOL/L (3.5-5.1); SODIUM 144 MMOL/L (136-145)
--- NOTE | 2019-08-17 07:35 | NUR ---
NURSE NOTES: Received report form ARELY Barrett. Patient confused. On room air, no signs of distress or labored breathing. IV intact, patent, and infusing IV fluids. Walsh intact, patent, and draining urine. Bilateral soft wrist restraints on. Bed in lowest position. Will continue with plan of care.
--- NOTE | 2019-08-17 07:40 | NUR ---
HAND-OFF: Report given to ARELY Salinas.
[2019-08-17 08:00] VITALS: BP 127/80
[2019-08-17] MEDS: Heparin 5000 units/ml inj SUBQ SCH ×2 (09:00→21:26)
--- NOTE | 2019-08-17 10:02 | Urology Progress Note ---
Assessment/Plan Assessment/Plan: 1. Urinary retention. 2. BPH history. 3. Probable neurogenic bladder. 4. Renal insufficiency acute on chronic. 5. Hematuria. dickson remains indwelling for now, replaced 08/11 secured to pt's leg hand irrigated and do PRN cont with flomax, proscar urecholine dose increased minimize seroquel on abx repeat voiding trial later, once more alert and ambulatory cysto later f/u on last blood cx d/w Dr. Cervantes Subjective Allergies: Coded Allergies: No Known Allergies (Unverified , 07/21/19) Subjective all noted, no new complaints, dickson indwelling Objective Last 24 Hour Vital Signs Date Time Temp Pulse Resp B/P (MAP) Pulse Ox O2 Delivery O2 Flow Rate FiO2 08/17/19 09:00 88 127/80 08/17/19 05:48 154/70 08/17/19 04:00 98.5 80 22 154/70 (98) 98 08/17/19 00:00 97.3 75 20 160/82 (108) 97 08/16/19 21:25 161/70 08/16/19 21:00 Room Air 08/16/19 20:00 97.9 79 22 161/71 (101) 96 08/16/19 16:00 97.9 69 17 166/74 (104) 97 08/16/19 14:58 162/81 08/16/19 12:00 97.5 67 18 162/81 (108) 95 Intake and Output 08/16/19 08/17/19 19:00 07:00 Intake Total 75 ml 2195.0 ml Output Total 300 ml 1250 ml Balance -225 ml 945.0 ml Intake Oral 240 ml IV Total 75 ml 955.0 ml Other 1000 ml Output Urine Total 300 ml 1250 ml # Voids 1 # Bowel Movements 1 Microbiology Date/Time Source Procedure Growth Status 08/13/19 09:25 Blood Blood Culture - Preliminary NO GROWTH AFTER 72 HOURS Resulted 07/21/19 17:35 Nasal Nares - Final Complete 07/21/19 17:35 Nasal Nares - Final Complete 08/13/19 11:10 Indwelling Cath Urine Culture - Final Morganella Morg Spp Morganii Complete Current Medications Medications (Trade) Dose Ordered Sig/Hanh Route PRN Reason Start Time Stop Time Status Last Admin Dose Admin Acetaminophen (Tylenol) 650 mg Q6H PRN ORAL Mild Pain/Temp > 100.5 08/16/19 03:30 09/12/19 15:22 Amlodipine Besylate (Norvasc) 10 mg DAILY ORAL 08/16/19 09:00 08/25/19 17:59 Bethanechol Chloride (Urecholine) 50 mg THREE TIMES A DAY ORAL 08/16/19 09:00 09/01/19 13:59 08/16/19 17:38 Bisacodyl (Dulcolax) 10 mg DAILYPRN PRN RECTAL Constipation 08/16/19 15:30 09/12/19 15:22 08/17/19 03:21 Clonidine HCl (Catapres TTS-3) 1 patch QWEEK TDERMAL 08/19/19 12:00 08/21/19 11:59 Clonidine HCl (Catapres tab) 0.2 mg Q2H PRN ORAL sbp>170 08/16/19 03:30 09/12/19 15:23 08/16/19 05:26 Dextrose/Sodium Chloride 1,000 ml @ 75 mls/hr [id number] IV 08/16/19 16:00 09/15/19 15:59 08/17/19 05:48 Finasteride (Proscar) 5 mg DAILY ORAL 08/16/19 09:00 08/27/19 08:59 Folic Acid (Folate) 1 mg DAILY ORAL 08/16/19 09:00 09/05/19 08:59 Haloperidol Lactate (Haldol) 2.5 mg Q6H PRN IM Agitation 08/16/19 06:15 09/14/19 12:14 Heparin Sodium (Porcine) (Heparin 5000 units/ml) 5,000 units EVERY 12 HOURS SUBQ 08/16/19 09:00 08/31/19 20:59 08/16/19 21:26 Hydralazine HCl (Apresoline) 10 mg Q2H PRN IV SBP>180 08/16/19 03:00 09/12/19 16:59 Hydralazine HCl (Apresoline) 100 mg Q8HR ORAL 08/16/19 14:00 09/15/19 13:59 08/17/19 05:48 Piperacillin Sod/ Tazobactam Sod 3.375 gm/Sodium Chloride 110 ml @ 27.5 mls/hr Q8H IVPB 08/16/19 09:00 08/20/19 08:59 08/17/19 01:12 Quetiapine Fumarate (SEROqueL) 25 mg Q6H PRN ORAL For Anxiety 08/16/19 03:30 09/12/19 15:23 Tamsulosin HCl (Flomax) 0.4 mg BID ORAL 08/16/19 09:00 08/26/19 17:59 08/16/19 17:37 Laboratory Tests 08/17/19 06:45: Sodium Level 144, Potassium Level 3.4L, Chloride Level 108H, Carbon Dioxide Level 22, Anion Gap 14, Blood Urea Nitrogen 35H, Creatinine 2.1H, Estimat Glomerular Filtration Rate , Glucose Level 147H, Calcium Level 8.9 Height (Feet): 5 Height (Inches): 5.00 Weight (Pounds): 176 Objective exam stable dickson indwelling LuigishKali renee MD Aug 17, 2019 10:02
[2019-08-17] MEDS: Tamsulosin 0.4mg cap ORAL SCH ×2 (10:05→17:56)
[2019-08-17] MEDS: Bethanechol 25mg Tab ORAL SCH ×3 (10:05→17:57)
[2019-08-17 12:00] VITALS: BP 174/75
--- NOTE | 2019-08-17 13:56 | Nephrology Progress Note ---
Assessment/Plan Assessment/Plan: A/P 1) Hypertension, benign - elevated. Increased hydralazine (2) Toxic metabolic encephalopathy (3) JERMAINE -on CKD 4 - Cr stable within baseline (4) Dehydration- IVFs (5) Urinary retention- per Urology Subjective Date patient seen: Aug 17, 2019 Time patient seen: 13:53 ROS Limited/Unobtainable: Yes Allergies: Coded Allergies: No Known Allergies (Unverified , 07/21/19) Subjective Patient resting in no distress Objective Last 24 Hour Vital Signs Date Time Temp Pulse Resp B/P (MAP) Pulse Ox O2 Delivery O2 Flow Rate FiO2 08/17/19 13:45 174/75 08/17/19 12:00 98.7 93 20 174/75 (108) 97 08/17/19 09:00 88 127/80 08/17/19 09:00 Room Air 08/17/19 08:00 98.8 88 20 127/80 (96) 97 08/17/19 05:48 154/70 08/17/19 04:00 98.5 80 22 154/70 (98) 98 08/17/19 00:00 97.3 75 20 160/82 (108) 97 08/16/19 21:25 161/70 08/16/19 21:00 Room Air 08/16/19 20:00 97.9 79 22 161/71 (101) 96 08/16/19 16:00 97.9 69 17 166/74 (104) 97 08/16/19 14:58 162/81 Intake and Output 08/16/19 08/17/19 19:00 07:00 Intake Total 75 ml 2195.0 ml Output Total 300 ml 1250 ml Balance -225 ml 945.0 ml Intake Oral 240 ml IV Total 75 ml 955.0 ml Other 1000 ml Output Urine Total 300 ml 1250 ml # Voids 1 # Bowel Movements 1 Laboratory Tests 08/17/19 06:45: Sodium Level 144, Potassium Level 3.4L, Chloride Level 108H, Carbon Dioxide Level 22, Anion Gap 14, Blood Urea Nitrogen 35H, Creatinine 2.1H, Estimat Glomerular Filtration Rate , Glucose Level 147H, Calcium Level 8.9 Height (Feet): 5 Height (Inches): 5.00 Weight (Pounds): 176 General Appearance: no apparent distress, alert EENT: normal ENT inspection Neck: normal alignment, supple Cardiovascular: normal rate, regular rhythm Respiratory/Chest: lungs clear, normal breath sounds Abdomen: non tender, soft Edema: no edema noted Arm (L), no edema noted Arm (R), no edema noted Leg (L), no edema noted Leg (R), no edema noted Pedal (L), no edema noted Pedal (R), no edema noted Generalized Luan Oneill MD Aug 17, 2019 13:56
[2019-08-17 16:00] VITALS: BP 165/77
--- NOTE | 2019-08-17 17:32 | Cardiac Electrophysiology PN ---
Assessment/Plan Status Narrative MRI Brain: Multiple foci of restricted diffusion, as described. Most of these were evident on prior study of 08/05/2019, indicating that these are residual subacute infarcts. However, there are a few new areas as detailed above, indicating lacunar infarcts that have occurred since the previous study Assessment/Plan 1. 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 EF 60%. LESA pending in AM Off anticoagulation to prevent hemorrhagic conversion of CVA until cleared by Neurology.Remained in SR on tele. Agree that patient will benefit from LESA 2. Hypertension. On Norvasc 10 mg daily, hydralazine 100 mg b.i.d., clonidine patch weekly and p.r.n. clonidine 3. Benign prostatic hypertrophy on Flomax and Proscar. 4. Dementia, on Seroquel per Dr. Mandel. 5. Acute rhabdomyolysis. 6. Staph bacteremia.On Abx 7. Stage 3 chronic kidney disease. 8. Positive RPR, FTA-ABS pending 9. AMS. ?due to CVA. FU Dr Sarah CARTER RN LESA IN AM Subjective Subjective Off tele, confused in restraints. LESA scheduled for tomorrow Objective Last 24 Hour Vital Signs Date Time Temp Pulse Resp B/P (MAP) Pulse Ox O2 Delivery O2 Flow Rate FiO2 08/17/19 16:00 99.2 82 18 165/77 (106) 96 08/17/19 13:45 174/75 08/17/19 12:00 98.7 93 20 174/75 (108) 97 08/17/19 09:00 88 127/80 08/17/19 09:00 Room Air 08/17/19 08:00 98.8 88 20 127/80 (96) 97 08/17/19 05:48 154/70 08/17/19 04:00 98.5 80 22 154/70 (98) 98 08/17/19 00:00 97.3 75 20 160/82 (108) 97 08/16/19 21:25 161/70 08/16/19 21:00 Room Air 08/16/19 20:00 97.9 79 22 161/71 (101) 96 Intake and Output 08/16/19 08/17/19 19:00 07:00 Intake Total 75 ml 2195.0 ml Output Total 300 ml 1250 ml Balance -225 ml 945.0 ml Intake Oral 240 ml IV Total 75 ml 955.0 ml Other 1000 ml Output Urine Total 300 ml 1250 ml # Voids 1 # Bowel Movements 1 Laboratory Tests Test 08/17/19 06:45 Sodium Level 144 MMOL/L (136-145) Potassium Level 3.4 MMOL/L (3.5-5.1) L Chloride Level 108 MMOL/L (98-107) H Carbon Dioxide Level 22 MMOL/L (21-32) Anion Gap 14 mmol/L (5-15) Blood Urea Nitrogen 35 mg/dL (7-18) H Creatinine 2.1 MG/DL (0.55-1.30) H Estimat Glomerular Filtration Rate mL/min (>60) Glucose Level 147 MG/DL (74-106) H Calcium Level 8.9 MG/DL (8.5-10.1) Objective HEAD AND NECK: No JVD. LUNGS: Clear. CARDIOVASCULAR: Regular S1 and S2 with no gallop or murmur. ABDOMEN: Soft and nontender. EXTREMITIES: No pitting edema. Lance Nichols MD Aug 17, 2019 17:32
--- NOTE | 2019-08-17 19:19 | NUR ---
HAND-OFF: Report given to ARELY Roberto.
--- NOTE | 2019-08-17 19:30 | NUR ---
NURSE NOTES: Pt received in bed able to follow with eyes, did not speak, head of bed elevated, restraints on, scds on, no signs of distress or c/o pain, IV running zosyn, will continue to monitor.
[2019-08-17 20:00] VITALS: BP 168/76
--- NOTE | 2019-08-17 20:13 | Pulmonology Progress Note ---
Assessment/Plan Assessment/Plan Assessment/Plan 1. Acute and chronic CVA, likely embolic 2. AMS, 2/2 above 3. 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 Dehydration/rhabdomyolysis/lactic acidosis - RESOLVED 5. Hyperproteinemia, possible myeloma 6. Hypertension - POORLY CONTROLLED 7. JERMAINE vs CKD, likely both 8. Obstructive uropathy 9. Generalized weakness 10. Anemia, FOBT neg PLAN: LESA to be done via 2 MD consent sunday Abx per ID, D/W Dr. Lion and gregorio covers neurosyphilis Per IR unable to do LP QT ok, Haldol 2.5 q6 PRN IM, Seroquel PO if able BP control PT/OT DVT Px: Hep SQ Dispo planning to SNF once acute issues resolved Subjective Constitutional: Reports: no symptoms HEENT: Repors: no symptoms Respiratory: Reports: sputum, shortness of breath Cardiovascular: Reports: no symptoms Gastrointestinal/Abdominal: Reports: no symptoms Genitourinary: Reports: no symptoms Allergies: Coded Allergies: No Known Allergies (Unverified , 07/21/19) Subjective awake communicates and follows commands little confused at times no distress no bleeding no nv no cp reported Objective Last 24 Hour Vital Signs Date Time Temp Pulse Resp B/P (MAP) Pulse Ox O2 Delivery O2 Flow Rate FiO2 08/17/19 16:00 99.2 82 18 165/77 (106) 96 08/17/19 13:45 174/75 08/17/19 12:00 98.7 93 20 174/75 (108) 97 08/17/19 09:00 88 127/80 08/17/19 09:00 Room Air 08/17/19 08:00 98.8 88 20 127/80 (96) 97 08/17/19 05:48 154/70 08/17/19 04:00 98.5 80 22 154/70 (98) 98 08/17/19 00:00 97.3 75 20 160/82 (108) 97 08/16/19 21:25 161/70 08/16/19 21:00 Room Air Intake and Output 08/16/19 08/17/19 19:00 07:00 Intake Total 75 ml 2195.0 ml Output Total 300 ml 1250 ml Balance -225 ml 945.0 ml Intake Oral 240 ml IV Total 75 ml 955.0 ml Other 1000 ml Output Urine Total 300 ml 1250 ml # Voids 1 # Bowel Movements 1 General Appearance: WD/WN HEENT: atraumatic, anicteric Respiratory/Chest: rhonchi Cardiovascular: normal rate, regular rhythm Abdomen: soft, non tender, no organomegaly, distended Extremities: no clubbing Skin: no rash Neurologic/Psychiatric: responsive Lymphatic: no groin adenopathy Musculoskeletal: no effusion Laboratory Tests 08/17/19 06:45: Sodium Level 144, Potassium Level 3.4L, Chloride Level 108H, Carbon Dioxide Level 22, Anion Gap 14, Blood Urea Nitrogen 35H, Creatinine 2.1H, Estimat Glomerular Filtration Rate , Glucose Level 147H, Calcium Level 8.9 Current Medications Medications (Trade) Dose Ordered Sig/Hanh Route PRN Reason Start Time Stop Time Status Last Admin Dose Admin Acetaminophen (Tylenol) 650 mg Q6H PRN ORAL Mild Pain/Temp > 100.5 08/16/19 03:30 09/12/19 15:22 08/17/19 11:29 Amlodipine Besylate (Norvasc) 10 mg DAILY ORAL 08/16/19 09:00 08/25/19 17:59 Bethanechol Chloride (Urecholine) 50 mg THREE TIMES A DAY ORAL 08/16/19 09:00 09/01/19 13:59 08/17/19 17:57 Bisacodyl (Dulcolax) 10 mg DAILYPRN PRN RECTAL Constipation 08/16/19 15:30 09/12/19 15:22 08/17/19 03:21 Clonidine HCl (Catapres TTS-3) 1 patch QWEEK TDERMAL 08/19/19 12:00 08/21/19 11:59 Clonidine HCl (Catapres tab) 0.2 mg Q2H PRN ORAL sbp>170 08/16/19 03:30 09/12/19 15:23 08/16/19 05:26 Dextrose/Sodium Chloride 1,000 ml @ 75 mls/hr [id number] IV 08/16/19 16:00 09/15/19 15:59 08/17/19 05:48 Finasteride (Proscar) 5 mg DAILY ORAL 08/16/19 09:00 08/27/19 08:59 08/17/19 10:05 Folic Acid (Folate) 1 mg DAILY ORAL 08/16/19 09:00 09/05/19 08:59 08/17/19 10:05 Haloperidol Lactate (Haldol) 2.5 mg Q6H PRN IM Agitation 08/16/19 06:15 09/14/19 12:14 Heparin Sodium (Porcine) (Heparin 5000 units/ml) 5,000 units EVERY 12 HOURS SUBQ 08/16/19 09:00 08/31/19 20:59 08/16/19 21:26 Hydralazine HCl (Apresoline) 10 mg Q2H PRN IV SBP>180 08/16/19 03:00 09/12/19 16:59 Hydralazine HCl (Apresoline) 100 mg Q8HR ORAL 08/16/19 14:00 09/15/19 13:59 08/17/19 13:45 Piperacillin Sod/ Tazobactam Sod 3.375 gm/Sodium Chloride 110 ml @ 27.5 mls/hr Q8H IVPB 08/16/19 09:00 08/20/19 08:59 08/17/19 17:56 Quetiapine Fumarate (SEROqueL) 25 mg Q6H PRN ORAL For Anxiety 08/16/19 03:30 09/12/19 15:23 Tamsulosin HCl (Flomax) 0.4 mg BID ORAL 08/16/19 09:00 08/26/19 17:59 08/17/19 17:56 Little Flores DO Aug 17, 2019 20:13
--- NOTE | 2019-08-17 20:58 | Infectious Diseases Prog Note ---
Assessment/Plan Problems: (1) Fever Assessment & Plan: source suspect CAUTI with morganella morganii , already on zosyn , CXR is negative for any infiltrates, monitor blood culture x2 , will treat with zosyn for two weeks (2) Positive RPR test Assessment & Plan: with low titer and reactive FTA-ABS , rule out neurosyphilis , LP was NOT done since he was altered as per radiologist , still not following commands . TPPA serum is pending . screening for HIV is negative . 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 repeated blood cultures so far have been negative, with negative JOHN, and RF screening , recommend LESA to better evaluate his valves . doesn't meet criteria for infectious endocarditis (4) CKD (chronic kidney disease) stage 3, GFR 30-59 ml/min Assessment & Plan: avoid nephrotoxics, close monitoring of renal function, follow up with nephrology (5) Failure to thrive in adult Assessment & Plan: etiology? dementia possibly, screening for HIV is negative , may need placement (6) Encephalopathy acute Assessment & Plan: recurrent CVA, VS meds side effect , VS metabolic. already on wide spectrum antibiotics . LP was not done due to altered menta status (7) Urinary retention Assessment & Plan: S/P dickson catheter placement , urology is following Subjective ROS Limited/Unobtainable: Yes Allergies: Coded Allergies: No Known Allergies (Unverified , 07/21/19) Subjective He was resting in bed comfortable, on restrains , open eyes and track but unresponsive to verbal commands , no cough or SOB, no nausea or vomiting , no diarrhea , NO LP was done since he was altered and not following commands . had Dickson catheter placed in on 08/11/19 Objective Vital Signs Last 24 Hour Vital Signs Date Time Temp Pulse Resp B/P (MAP) Pulse Ox O2 Delivery O2 Flow Rate FiO2 08/17/19 16:00 99.2 82 18 165/77 (106) 96 08/17/19 13:45 174/75 08/17/19 12:00 98.7 93 20 174/75 (108) 97 08/17/19 09:00 88 127/80 08/17/19 09:00 Room Air 08/17/19 08:00 98.8 88 20 127/80 (96) 97 08/17/19 05:48 154/70 08/17/19 04:00 98.5 80 22 154/70 (98) 98 08/17/19 00:00 97.3 75 20 160/82 (108) 97 08/16/19 21:25 161/70 08/16/19 21:00 Room Air Height (Feet): 5 Height (Inches): 5.00 Weight (Pounds): 176 General Appearance: WD/WN, no acute distress HEENT: normocephalic, atraumatic, anicteric, mucous membranes moist, PERRL Respiratory/Chest: chest wall non-tender, lungs clear, normal breath sounds, no respiratory distress, no accessory muscle use Cardiovascular: normal peripheral pulses, normal rate, regular rhythm, no gallop/murmur, no JVD Abdomen: normal bowel sounds, soft, non tender, no organomegaly, non distended , no mass, no scars Genitourinary: normal external genitalia Extremities: no cyanosis, no clubbing Skin: no rash, no lesions, no ulcers Neurologic/Psychiatric: alert, unresponsiveness Lymphatic: no neck adenopathy, no groin adenopathy Musculoskeletal: normal muscle bulk, no effusion Laboratory Tests Test 08/17/19 06:45 Sodium Level 144 MMOL/L (136-145) Potassium Level 3.4 MMOL/L (3.5-5.1) L Chloride Level 108 MMOL/L (98-107) H Carbon Dioxide Level 22 MMOL/L (21-32) Anion Gap 14 mmol/L (5-15) Blood Urea Nitrogen 35 mg/dL (7-18) H Creatinine 2.1 MG/DL (0.55-1.30) H Estimat Glomerular Filtration Rate mL/min (>60) Glucose Level 147 MG/DL (74-106) H Calcium Level 8.9 MG/DL (8.5-10.1) Current Medications Medications (Trade) Dose Ordered Sig/Hanh Route PRN Reason Start Time Stop Time Status Last Admin Dose Admin Acetaminophen (Tylenol) 650 mg Q6H PRN ORAL Mild Pain/Temp > 100.5 08/16/19 03:30 09/12/19 15:22 08/17/19 11:29 Amlodipine Besylate (Norvasc) 10 mg DAILY ORAL 08/16/19 09:00 08/25/19 17:59 Bethanechol Chloride (Urecholine) 50 mg THREE TIMES A DAY ORAL 08/16/19 09:00 09/01/19 13:59 08/17/19 17:57 Bisacodyl (Dulcolax) 10 mg DAILYPRN PRN RECTAL Constipation 08/16/19 15:30 09/12/19 15:22 08/17/19 03:21 Clonidine HCl (Catapres TTS-3) 1 patch QWEEK TDERMAL 08/19/19 12:00 08/21/19 11:59 Clonidine HCl (Catapres tab) 0.2 mg Q2H PRN ORAL sbp>170 08/16/19 03:30 09/12/19 15:23 08/16/19 05:26 Dextrose/Sodium Chloride 1,000 ml @ 75 mls/hr [id number] IV 08/16/19 16:00 09/15/19 15:59 08/17/19 05:48 Finasteride (Proscar) 5 mg DAILY ORAL 08/16/19 09:00 08/27/19 08:59 08/17/19 10:05 Folic Acid (Folate) 1 mg DAILY ORAL 08/16/19 09:00 09/05/19 08:59 08/17/19 10:05 Haloperidol Lactate (Haldol) 2.5 mg Q6H PRN IM Agitation 08/16/19 06:15 09/14/19 12:14 Heparin Sodium (Porcine) (Heparin 5000 units/ml) 5,000 units EVERY 12 HOURS SUBQ 08/16/19 09:00 08/31/19 20:59 08/16/19 21:26 Hydralazine HCl (Apresoline) 10 mg Q2H PRN IV SBP>180 08/16/19 03:00 09/12/19 16:59 Hydralazine HCl (Apresoline) 100 mg Q8HR ORAL 08/16/19 14:00 09/15/19 13:59 08/17/19 13:45 Piperacillin Sod/ Tazobactam Sod 3.375 gm/Sodium Chloride 110 ml @ 27.5 mls/hr Q8H IVPB 08/16/19 09:00 08/20/19 08:59 08/17/19 17:56 Quetiapine Fumarate (SEROqueL) 25 mg Q6H PRN ORAL For Anxiety 08/16/19 03:30 09/12/19 15:23 Tamsulosin HCl (Flomax) 0.4 mg BID ORAL 08/16/19 09:00 08/26/19 17:59 08/17/19 17:56 Anastasia Lion M.D. Aug 17, 2019 20:57
[2019-08-18] VITALS (7 sets, daily range): BP systolic 131–179; BP diastolic 69–96
[2019-08-18] MEDS: Piperacillin/Tazobactam 3.375 GM in NS 110 ML IVPB SCH ×3 (02:21→17:03)
[2019-08-18] MEDS: HydrALAZINE 50mg tab ORAL SCH ×3 (05:31→22:30)
--- NOTE | 2019-08-18 07:46 | NUR ---
NURSE NOTES: received patient in bed eating breakfast no sign of distres, head of bed elevated, restraints on, scds on, , on IVF running , on fall precaution ,both siderails up for safety, call light w/n reach , kept clean dry and comfotable, will continue to monitor sarah salvador
--- NOTE | 2019-08-18 07:47 | NUR ---
HAND-OFF: Report given to ARELY Meraz.
--- NOTE | 2019-08-18 08:02 | Nephrology Progress Note ---
Assessment/Plan Assessment/Plan: A/P 1) Hypertension, benign - stable, monitor (2) Toxic metabolic encephalopathy (3) JERMAINE -on CKD 4 - Cr stable within baseline (4) Dehydration- IVFs prn (5) Urinary retention- per Urology Subjective Date patient seen: Aug 18, 2019 Time patient seen: 07:57 ROS Limited/Unobtainable: No Allergies: Coded Allergies: No Known Allergies (Unverified , 07/21/19) Subjective Patient resting. No complaints Objective Last 24 Hour Vital Signs Date Time Temp Pulse Resp B/P (MAP) Pulse Ox O2 Delivery O2 Flow Rate FiO2 08/18/19 05:31 145/96 08/18/19 04:00 98.9 70 20 145/96 (112) 96 08/18/19 00:00 98.0 97 20 163/87 (112) 98 08/17/19 21:26 168/76 08/17/19 21:00 Room Air 08/17/19 20:00 98.0 91 21 168/76 (106) 97 08/17/19 16:00 99.2 82 18 165/77 (106) 96 08/17/19 13:45 174/75 08/17/19 12:00 98.7 93 20 174/75 (108) 97 08/17/19 09:00 88 127/80 08/17/19 09:00 Room Air 08/17/19 08:00 98.8 88 20 127/80 (96) 97 Intake and Output 08/17/19 08/18/19 18:59 06:59 Intake Total 840 ml 1660 ml Output Total 500 ml 450 ml Balance 340 ml 1210 ml Intake Oral 840 ml 360 ml IV Total 300 ml Other 1000 ml Output Urine Total 500 ml 450 ml # Voids 1 # Bowel Movements 1 Height (Feet): 5 Height (Inches): 5.00 Weight (Pounds): 176 General Appearance: no apparent distress, alert EENT: normal ENT inspection Neck: normal alignment, supple Cardiovascular: normal rate, regular rhythm Respiratory/Chest: lungs clear Abdomen: non tender, soft Edema: no edema noted Arm (L), no edema noted Arm (R), no edema noted Leg (L), no edema noted Leg (R), no edema noted Pedal (L), no edema noted Pedal (R), no edema noted Generalized Luan Oneill MD Aug 18, 2019 08:02
--- NOTE | 2019-08-18 08:31 | Urology Progress Note ---
Assessment/Plan Assessment/Plan: 1. Urinary retention. 2. BPH history. 3. Probable neurogenic bladder. 4. Renal insufficiency acute on chronic. 5. Hematuria. dickson remains indwelling for now, replaced 08/11 secured to pt's leg hand irrigated and do PRN cont with flomax, proscar urecholine dose increased minimize seroquel on abx repeat voiding trial later, once more alert and ambulatory cysto later f/u on last blood cx d/w Dr. Cervantes Subjective Allergies: Coded Allergies: No Known Allergies (Unverified , 07/21/19) Subjective all noted, no new complaints, dickson indwelling Objective Last 24 Hour Vital Signs Date Time Temp Pulse Resp B/P (MAP) Pulse Ox O2 Delivery O2 Flow Rate FiO2 08/18/19 05:31 145/96 08/18/19 04:00 98.9 70 20 145/96 (112) 96 08/18/19 00:00 98.0 97 20 163/87 (112) 98 08/17/19 21:26 168/76 08/17/19 21:00 Room Air 08/17/19 20:00 98.0 91 21 168/76 (106) 97 08/17/19 16:00 99.2 82 18 165/77 (106) 96 08/17/19 13:45 174/75 08/17/19 12:00 98.7 93 20 174/75 (108) 97 08/17/19 09:00 88 127/80 08/17/19 09:00 Room Air Intake and Output 08/17/19 08/18/19 19:00 07:00 Intake Total 840 ml 1660 ml Output Total 500 ml 450 ml Balance 340 ml 1210 ml Intake Oral 840 ml 360 ml IV Total 300 ml Other 1000 ml Output Urine Total 500 ml 450 ml # Voids 1 # Bowel Movements 1 Microbiology Date/Time Source Procedure Growth Status 08/13/19 09:25 Blood Blood Culture - Preliminary NO GROWTH AFTER 4 DAYS Resulted 07/21/19 17:35 Nasal Nares - Final Complete 07/21/19 17:35 Nasal Nares - Final Complete 08/13/19 11:10 Indwelling Cath Urine Culture - Final Morganella Morg Spp Morganii Complete Current Medications Medications (Trade) Dose Ordered Sig/Hanh Route PRN Reason Start Time Stop Time Status Last Admin Dose Admin Acetaminophen (Tylenol) 650 mg Q6H PRN ORAL Mild Pain/Temp > 100.5 08/16/19 03:30 09/12/19 15:22 08/17/19 11:29 Amlodipine Besylate (Norvasc) 10 mg DAILY ORAL 08/16/19 09:00 08/25/19 17:59 Bethanechol Chloride (Urecholine) 50 mg THREE TIMES A DAY ORAL 08/16/19 09:00 09/01/19 13:59 08/17/19 17:57 Bisacodyl (Dulcolax) 10 mg DAILYPRN PRN RECTAL Constipation 08/16/19 15:30 09/12/19 15:22 08/17/19 03:21 Clonidine HCl (Catapres TTS-3) 1 patch QWEEK TDERMAL 08/19/19 12:00 08/21/19 11:59 Clonidine HCl (Catapres tab) 0.2 mg Q2H PRN ORAL sbp>170 08/16/19 03:30 09/12/19 15:23 08/16/19 05:26 Dextrose/Sodium Chloride 1,000 ml @ 75 mls/hr [id number] IV 08/16/19 16:00 09/15/19 15:59 08/17/19 05:48 Finasteride (Proscar) 5 mg DAILY ORAL 08/16/19 09:00 08/27/19 08:59 08/17/19 10:05 Folic Acid (Folate) 1 mg DAILY ORAL 08/16/19 09:00 09/05/19 08:59 08/17/19 10:05 Haloperidol Lactate (Haldol) 2.5 mg Q6H PRN IM Agitation 08/16/19 06:15 09/14/19 12:14 Heparin Sodium (Porcine) (Heparin 5000 units/ml) 5,000 units EVERY 12 HOURS SUBQ 08/16/19 09:00 08/31/19 20:59 08/16/19 21:26 Hydralazine HCl (Apresoline) 10 mg Q2H PRN IV SBP>180 08/16/19 03:00 09/12/19 16:59 Hydralazine HCl (Apresoline) 100 mg Q8HR ORAL 08/16/19 14:00 09/15/19 13:59 08/18/19 05:31 Piperacillin Sod/ Tazobactam Sod 3.375 gm/Sodium Chloride 110 ml @ 27.5 mls/hr Q8H IVPB 08/16/19 09:00 08/20/19 08:59 08/18/19 02:21 Potassium Chloride (K-Dur) 40 meq ONCE ONCE ORAL 08/18/19 09:00 08/18/19 09:01 Quetiapine Fumarate (SEROqueL) 25 mg Q6H PRN ORAL For Anxiety 08/16/19 03:30 09/12/19 15:23 Tamsulosin HCl (Flomax) 0.4 mg BID ORAL 08/16/19 09:00 08/26/19 17:59 08/17/19 17:56 Height (Feet): 5 Height (Inches): 5.00 Weight (Pounds): 176 Objective exam stable dickson indwelling Kali Serrano MD Aug 18, 2019 08:31
[2019-08-18] MEDS: Tamsulosin 0.4mg cap ORAL SCH ×2 (08:43→17:03)
[2019-08-18] MEDS: cloNIDine 0.2mg Tab ORAL PRN (08:43)
[2019-08-18] MEDS: Bethanechol 25mg Tab ORAL SCH ×3 (08:43→17:04)
[2019-08-18] MEDS: D5NS 1,000 ML IV SCH ×2 (08:44→20:35)
[2019-08-18] MEDS: Heparin 5000 units/ml inj SUBQ SCH ×2 (08:45→20:34)
--- NOTE | 2019-08-18 10:45 | Neurology Progress Note ---
Interim History Interim History Interim History Mr. Reji Au is a 79-year-old, right-handed, black gentleman, who has a relatively benign past history. He was brought to the hospital on 07/21/2019 after he had apparently fallen down and was on the floor of his apartment for 4 days. He himself has no recollection of what happened. Since he has been here he has been noted to have some gait problems. He is minimally verbal and less negativistic today. He does commands and is able to communicate. He however prefers to keep his eyes closed. His urinary tract infection is being treated appropriately. He has still not had his LESA or lumbar puncture performed. Objective Physical Exam Last Vital Signs Date Time Temp Pulse Resp B/P (MAP) Pulse Ox O2 Delivery O2 Flow Rate FiO2 08/18/19 08:45 96 179/80 08/18/19 08:45 Room Air 08/18/19 08:00 97.7 18 94 Neurologic Exam Objective PHYSICAL EXAMINATION: GENERAL: He is a well-developed, relatively well-nourished, Black gentleman, lying in bed in no acute distress. HEAD: Normocephalic and atraumatic. NECK: No neck rigidity was observed. EENT examination: Benign. NEUROLOGICAL EXAMINATION: Mental status examination: He was awake but not completely alert. He was oriented to self, [facility] [place] only. He did not cooperate for further mental status testing. Frontal systems tasks: He was unable to cooperate. Speech: He had no dysarthria. Language: He was able to comprehend and express himself. Cranial nerve examination: II: The visual kang were intact on confrontation. III, IV & : The external ocular movements were full. The pupils were 3 mm in diameter and reactive sluggishly to light. V-VII: The corneal reflexes were equal bilaterally. He had a trace right seventh central facial paresis. VIII: He was able to hear and had no nystagmus. IX: The palate moved symmetrically on phonation. X: He had no hoarseness of voice. XI: The sternocleidomastoids and trapezii functioned. XII: The tongue was in the midline. Motor system: The tone was normal in all 4 extremities. Examination of muscle mass revealed no focal wasting. Examination of power was impossible to perform accurately however he moved all 4 extremities on command and gave me good hand buffet server bilaterally. Sensory examination: He was able to localize light touch. Reflexes: 2+ and bilaterally symmetrical at the biceps, triceps, brachioradialis and knees. 0 at both ankles. The plantar responses were flexor. Coordination: Could not be tested Stance: Could not be tested Gait: Could not be tested Impression/Recommendations Diagnostic Impression DIAGNOSTIC IMPRESSION: 1. Mr. Reji Au is a 79-year-old, right-handed, black gentleman, who has a relatively benign past history. He was brought to the hospital on 07/21/2019 after he had apparently fallen down and was on the floor of his apartment for 4 days. He himself has no recollection of what happened. Since he has been here he has been noted to have some gait problems. 2. He is minimally verbal and less negativistic today. He does commands and is able to communicate. He however prefers to keep his eyes closed. His urinary tract infection is being treated appropriately. He has still not had his LESA or lumbar puncture performed. 3. On neurological examination, at this time, he is awake but not completely alert. He is oriented to self, [facility] [place] and July only. He does not cooperate for further mental status testing. He is able to comprehend and express himself. He has a trace right seventh central facial paresis. He however does not demonstrate any lateralizing findings on his motor, sensory, or reflex examination. 4. Laboratory data on my initial evaluation revealed that he was anemic with a hemoglobin of 11.5 G. His latest BUN was 42 and latest creatinine is 2.3. When he came in his CK was 2257 and it had normalized to 241. He was folic acid deficient with a folic acid level of 7.5. His RPR was positive in a low titre of 1:1. The FTA-ABS is reactive. 5. The urine analysis performed today reveals 3+ leukocyte esterase, 5-10 red blood cells and too numerous to count white blood cells per high-power field. 6. The MRI scan of the brain performed on 08/05/2019 revealed multiple acute infarcts involving both cerebral hemispheres, basal ganglia, and the left cerebellum. In addition multiple old small infarcts scattered in the brain were also seen. 7. The MRI scan of the brain repeated on 08/12/2019 revealed multiple new acute infarctions in multiple different vascular territories. 8. A CT of the brain done today reveals atrophy, deep white matter changes and old infarcts but no acute pathology. 9. Prolonged cardiac monitoring has revealed no arrhythmia. 10. The patient's history, neurological examination, laboratory data, and imaging studies, most consistent with multiple showers of emboli to the brain over multiple different time periods. Leading to significant neurological dysfunction. 11. Patient also has a positive peripheral RPR and FTA-ABS. This is indicative of exposure to syphilis. Neurosyphilis should be excluded. 12. His recent decline in neurological function may be related to the acute urinary tract infection in addition to all the other problems that he has. He is brighter and better behaved today. Recommendations RECOMMENDATIONS: 1. Continue present management. 2. Transesophageal echocardiogram with bubble study should be performed to evaluate the patient for a cardiogenic source of emboli. The patient has agreed with it when he is lucid. If in the future there is a problem with obtaining consent then it should be noted that it is medically necessary to get the procedure done so that the patient can get adequate therapy. If not done the patient is at significant risk of having more strokes. 3. Agree with obtaining a lumbar puncture to evaluate the patient for neurosyphilis. 4. Continue physical and occupational therapy to mobilize patient. 5. Aggressive treatment of acute infectious process. 6. Folic acid 1 mg daily for folate deficiency. 7. Observe closely. Beka Smith M.D., M.S.P.H. Neurologist & Clinical Neurophysiologist Beka Smith MD Aug 18, 2019 10:45
--- NOTE | 2019-08-18 11:00 | CDS Physician Query ---
Clarification is required for compliance, coding accuracy, and to reflect severity of illness for this patient Dear Dr. Shiraz Cervantes Date: 08/18/2019 Shift Supervisor Melting/CDS Name: Eileen Lombardo Clinical Documentation states: HNP: 9-year-old man came to the emergency department by paramedics when his neighbors called 911. The patient states that he had to lie down on the floor and could not get up for the past 4 days....Dehydration 08/15 note: 1. Acute and chronic CVA, likely embolic 2. AMS, 2/2 above MRI 08/05: Multiple small acute infarcts scattered throughout the cerebral hemispheres, basal ganglia, and left cerebellum. Presence of these in multiple vascular territories indicates emboli of cardiogenic origin Clarification is needed for one (or more) of the following conditions in order to accurately assign the "present on admission' indicator. Please choose the answer that best indicates whether the associated condition was present at the time of the order for inpatient admission. Thank you. Was the CVA Present on admission? [] YES [] NO [] Clinically Undeterminable Physician signature Date Please also document in your Progress Notes and/or Discharge Summary and indicate if the condition was present on admission. YOLANDAD
--- NOTE | 2019-08-18 13:24 | Pulmonology Progress Note ---
Assessment/Plan Problems: (1) Rhabdomyolysis (2) JERMAINE (acute kidney injury) (3) Dehydration (4) Episode of generalized weakness (5) Weakness (6) Gait abnormality (7) Failure to thrive in adult (8) Hypertension, benign (9) Toxic metabolic encephalopathy (10) Bacteremia due to Staphylococcus (11) Positive RPR test (12) CVA (cerebral vascular accident) (13) Syphilis Assessment/Plan Assessment/Plan 1. Acute and chronic CVA, likely embolic 2. AMS, 2/2 above 3. 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 Dehydration/rhabdomyolysis/lactic acidosis - RESOLVED 5. Hyperproteinemia, possible myeloma 6. Hypertension - POORLY CONTROLLED 7. JERMAINE vs CKD, likely both 8. Obstructive uropathy 9. Generalized weakness 10. Anemia, FOBT neg PLAN: LESA to be done via 2 MD consent today Abx per ID, D/W Dr. Lion and gregorio covers neurosyphilis Per IR unable to do LP QT ok, Haldol 2.5 q6 PRN IM, Seroquel PO if able BP control PT/OT DVT Px: Hep SQ Dispo planning to SNF once acute issues resolved Subjective Allergies: Coded Allergies: No Known Allergies (Unverified , 07/21/19) Subjective NAEO MS waxes and wanes AFVSS no cough no SOB no distress Objective Last 24 Hour Vital Signs Date Time Temp Pulse Resp B/P (MAP) Pulse Ox O2 Delivery O2 Flow Rate FiO2 08/18/19 12:09 98.1 92 19 136/81 (99) 95 08/18/19 09:30 142/70 (94) 08/18/19 08:45 96 179/80 08/18/19 08:45 Room Air 08/18/19 08:43 179/80 08/18/19 08:00 97.7 96 18 179/80 (113) 94 08/18/19 05:31 145/96 08/18/19 04:00 98.9 70 20 145/96 (112) 96 08/18/19 00:00 98.0 97 20 163/87 (112) 98 08/17/19 21:26 168/76 08/17/19 21:00 Room Air 08/17/19 20:00 98.0 91 21 168/76 (106) 97 08/17/19 16:00 99.2 82 18 165/77 (106) 96 08/17/19 13:45 174/75 Intake and Output 08/17/19 08/18/19 19:00 07:00 Intake Total 840 ml 1735 ml Output Total 500 ml 450 ml Balance 340 ml 1285 ml Intake Oral 840 ml 360 ml IV Total 375 ml Other 1000 ml Output Urine Total 500 ml 450 ml # Voids 1 # Bowel Movements 1 General Appearance: no acute distress, cachetic HEENT: normocephalic, atraumatic, anicteric, mucous membranes moist Respiratory/Chest: chest wall non-tender, lungs clear, normal breath sounds, no respiratory distress, no accessory muscle use Cardiovascular: normal peripheral pulses, normal rate, regular rhythm Abdomen: normal bowel sounds, soft, non tender, no organomegaly, non distended , no mass Extremities: no cyanosis, no clubbing, no edema Current Medications Medications (Trade) Dose Ordered Sig/Hanh Route PRN Reason Start Time Stop Time Status Last Admin Dose Admin Acetaminophen (Tylenol) 650 mg Q6H PRN ORAL Mild Pain/Temp > 100.5 08/16/19 03:30 09/12/19 15:22 08/17/19 11:29 Amlodipine Besylate (Norvasc) 10 mg DAILY ORAL 08/16/19 09:00 08/25/19 17:59 08/18/19 08:45 Bethanechol Chloride (Urecholine) 50 mg THREE TIMES A DAY ORAL 08/16/19 09:00 09/01/19 13:59 08/18/19 12:40 Bisacodyl (Dulcolax) 10 mg DAILYPRN PRN RECTAL Constipation 08/16/19 15:30 09/12/19 15:22 08/17/19 03:21 Clonidine HCl (Catapres TTS-3) 1 patch QWEEK TDERMAL 08/19/19 12:00 08/21/19 11:59 Clonidine HCl (Catapres tab) 0.2 mg Q2H PRN ORAL sbp>170 08/16/19 03:30 09/12/19 15:23 08/18/19 08:43 Dextrose/Sodium Chloride 1,000 ml @ 75 mls/hr [id number] IV 08/16/19 16:00 09/15/19 15:59 08/18/19 08:44 Finasteride (Proscar) 5 mg DAILY ORAL 08/16/19 09:00 08/27/19 08:59 08/18/19 08:43 Folic Acid (Folate) 1 mg DAILY ORAL 08/16/19 09:00 09/05/19 08:59 08/18/19 08:43 Haloperidol Lactate (Haldol) 2.5 mg Q6H PRN IM Agitation 08/16/19 06:15 09/14/19 12:14 Heparin Sodium (Porcine) (Heparin 5000 units/ml) 5,000 units EVERY 12 HOURS SUBQ 08/16/19 09:00 08/31/19 20:59 08/16/19 21:26 Hydralazine HCl (Apresoline) 100 mg Q8HR ORAL 08/16/19 14:00 09/15/19 13:59 08/18/19 05:31 Piperacillin Sod/ Tazobactam Sod 3.375 gm/Sodium Chloride 110 ml @ 27.5 mls/hr Q8H IVPB 08/16/19 09:00 08/20/19 08:59 08/18/19 08:43 Quetiapine Fumarate (SEROqueL) 25 mg Q6H PRN ORAL For Anxiety 08/16/19 03:30 09/12/19 15:23 Tamsulosin HCl (Flomax) 0.4 mg BID ORAL 08/16/19 09:00 08/26/19 17:59 08/18/19 08:43 Shiraz Cervantes MD Aug 18, 2019 13:24
--- NOTE | 2019-08-18 14:00 | NUR ---
nurse notes patient is awake, alert oriented x3 , calm and quiet , Dr Cervantes at bedside, restraint dcd as order, both side rails up for safety , call light w/n reach sarah salvador
--- NOTE | 2019-08-18 14:11 | Infectious Diseases Prog Note ---
Assessment/Plan Problems: (1) Fever Assessment & Plan: source suspect CAUTI with morganella morganii , already on zosyn , CXR is negative for any infiltrates, monitor blood culture x2 , will treat with zosyn for two weeks (2) Positive RPR test Assessment & Plan: with low titer and reactive FTA-ABS , rule out neurosyphilis , LP was NOT done since he was altered as per radiologist . TPPA serum is pending . screening for HIV is negative . 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 repeated blood cultures so far have been negative, with negative JOHN, and RF screening , recommend LESA to better evaluate his valves . doesn't meet criteria for infectious endocarditis (4) CKD (chronic kidney disease) stage 3, GFR 30-59 ml/min Assessment & Plan: avoid nephrotoxics, close monitoring of renal function, follow up with nephrology (5) Failure to thrive in adult Assessment & Plan: etiology? dementia possibly, screening for HIV is negative , may need placement (6) Encephalopathy acute Assessment & Plan: recurrent CVA, VS meds side effect , VS metabolic. already on wide spectrum antibiotics . neurology is following (7) Urinary retention Assessment & Plan: S/P dickson catheter placement , urology is following Subjective Constitutional: Reports: no symptoms HEENT: Reports: no symptoms Respiratory: Reports: no symptoms Breasts: Reports: no symptoms Cardiovascular: Reports: no symptoms Gastrointestinal/Abdominal: Reports: no symptoms Genitourinary: Reports: no symptoms Neurologic: Reports: no symptoms Psychiatric: Reports: no symptoms Skin: Reports: no symptoms Endocrine: Reports: no symptoms Hematologic: Reports: no symptoms Musculoskeletal: Reports: no symptoms Allergies: Coded Allergies: No Known Allergies (Unverified , 07/21/19) Subjective He was awake and alert , resting in bed comfortable, on restrains , responsive well to verbal commands , no cough or SOB, no nausea or vomiting , no diarrhea , had Dickson catheter placed in on 08/11/19 Objective Vital Signs Last 24 Hour Vital Signs Date Time Temp Pulse Resp B/P (MAP) Pulse Ox O2 Delivery O2 Flow Rate FiO2 08/18/19 13:36 136/81 08/18/19 12:09 98.1 92 19 136/81 (99) 95 08/18/19 09:30 142/70 (94) 08/18/19 08:45 96 179/80 08/18/19 08:45 Room Air 08/18/19 08:43 179/80 08/18/19 08:00 97.7 96 18 179/80 (113) 94 08/18/19 05:31 145/96 08/18/19 04:00 98.9 70 20 145/96 (112) 96 08/18/19 00:00 98.0 97 20 163/87 (112) 98 08/17/19 21:26 168/76 08/17/19 21:00 Room Air 08/17/19 20:00 98.0 91 21 168/76 (106) 97 08/17/19 16:00 99.2 82 18 165/77 (106) 96 Height (Feet): 5 Height (Inches): 5.00 Weight (Pounds): 176 General Appearance: WD/WN, no acute distress HEENT: normocephalic, atraumatic, anicteric, mucous membranes moist, PERRL Respiratory/Chest: chest wall non-tender, lungs clear, normal breath sounds, no respiratory distress, no accessory muscle use Cardiovascular: normal peripheral pulses, normal rate, regular rhythm, no gallop/murmur, no JVD Abdomen: normal bowel sounds, soft, non tender, no organomegaly, non distended , no mass, no scars Extremities: no cyanosis, no clubbing Skin: no rash, no lesions, no ulcers Neurologic/Psychiatric: alert, responsive Lymphatic: no neck adenopathy, no groin adenopathy Musculoskeletal: normal muscle bulk, no effusion Current Medications Medications (Trade) Dose Ordered Sig/Hanh Route PRN Reason Start Time Stop Time Status Last Admin Dose Admin Acetaminophen (Tylenol) 650 mg Q6H PRN ORAL Mild Pain/Temp > 100.5 08/16/19 03:30 09/12/19 15:22 08/17/19 11:29 Amlodipine Besylate (Norvasc) 10 mg DAILY ORAL 08/16/19 09:00 08/25/19 17:59 08/18/19 08:45 Bethanechol Chloride (Urecholine) 50 mg THREE TIMES A DAY ORAL 08/16/19 09:00 09/01/19 13:59 08/18/19 12:40 Bisacodyl (Dulcolax) 10 mg DAILYPRN PRN RECTAL Constipation 08/16/19 15:30 09/12/19 15:22 08/17/19 03:21 Clonidine HCl (Catapres TTS-3) 1 patch QWEEK TDERMAL 08/19/19 12:00 08/21/19 11:59 Clonidine HCl (Catapres tab) 0.2 mg Q2H PRN ORAL sbp>170 08/16/19 03:30 09/12/19 15:23 08/18/19 08:43 Dextrose/Sodium Chloride 1,000 ml @ 75 mls/hr [id number] IV 08/16/19 16:00 09/15/19 15:59 08/18/19 08:44 Finasteride (Proscar) 5 mg DAILY ORAL 08/16/19 09:00 08/27/19 08:59 08/18/19 08:43 Folic Acid (Folate) 1 mg DAILY ORAL 08/16/19 09:00 09/05/19 08:59 08/18/19 08:43 Haloperidol Lactate (Haldol) 2.5 mg Q6H PRN IM Agitation 08/16/19 06:15 09/14/19 12:14 Heparin Sodium (Porcine) (Heparin 5000 units/ml) 5,000 units EVERY 12 HOURS SUBQ 08/16/19 09:00 08/31/19 20:59 08/16/19 21:26 Hydralazine HCl (Apresoline) 100 mg Q8HR ORAL 08/16/19 14:00 09/15/19 13:59 08/18/19 13:36 Piperacillin Sod/ Tazobactam Sod 3.375 gm/Sodium Chloride 110 ml @ 27.5 mls/hr Q8H IVPB 08/16/19 09:00 08/20/19 08:59 08/18/19 08:43 Quetiapine Fumarate (SEROqueL) 25 mg Q6H PRN ORAL For Anxiety 08/16/19 03:30 09/12/19 15:23 Tamsulosin HCl (Flomax) 0.4 mg BID ORAL 08/16/19 09:00 08/26/19 17:59 08/18/19 08:43 Anastasia Lion M.D. Aug 18, 2019 14:11
--- NOTE | 2019-08-18 15:34 | Cardiac Electrophysiology PN ---
Assessment/Plan Status Narrative MRI Brain: Multiple foci of restricted diffusion, as described. Most of these were evident on prior study of 08/05/2019, indicating that these are residual subacute infarcts. However, there are a few new areas as detailed above, indicating lacunar infarcts that have occurred since the previous study Assessment/Plan 1. 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 EF 60%. LESA pending in AM Off anticoagulation to prevent hemorrhagic conversion of CVA until cleared by Neurology.Remained in SR while on tele. Agree that patient will benefit from LESA that is still pending 2. Hypertension. On Norvasc 10 mg daily, hydralazine 100 mg b.i.d., clonidine patch weekly and p.r.n. clonidine 3. Benign prostatic hypertrophy on Flomax and Proscar. 4. Dementia, on Seroquel per Dr. Mandel. 5. Acute rhabdomyolysis. 6. Staph bacteremia.On Abx 7. Stage 3 chronic kidney disease. 8. AMS. ?due to CVA. FU Dr Sarah CARTER RN Subjective Subjective Off tele,Alert in NAD. LESA not scheduled yet per RN Objective Last 24 Hour Vital Signs Date Time Temp Pulse Resp B/P (MAP) Pulse Ox O2 Delivery O2 Flow Rate FiO2 08/18/19 13:36 136/81 08/18/19 12:09 98.1 92 19 136/81 (99) 95 08/18/19 09:30 142/70 (94) 08/18/19 08:45 96 179/80 08/18/19 08:45 Room Air 08/18/19 08:43 179/80 08/18/19 08:00 97.7 96 18 179/80 (113) 94 08/18/19 05:31 145/96 08/18/19 04:00 98.9 70 20 145/96 (112) 96 08/18/19 00:00 98.0 97 20 163/87 (112) 98 08/17/19 21:26 168/76 08/17/19 21:00 Room Air 08/17/19 20:00 98.0 91 21 168/76 (106) 97 08/17/19 16:00 99.2 82 18 165/77 (106) 96 Intake and Output 08/17/19 08/18/19 19:00 07:00 Intake Total 840 ml 1735 ml Output Total 500 ml 450 ml Balance 340 ml 1285 ml Intake Oral 840 ml 360 ml IV Total 375 ml Other 1000 ml Output Urine Total 500 ml 450 ml # Voids 1 # Bowel Movements 1 Objective HEAD AND NECK: No JVD. LUNGS: Clear. CARDIOVASCULAR: Regular S1 and S2 with no gallop or murmur. ABDOMEN: Soft and nontender. EXTREMITIES: No pitting edema. Lance Nichols MD Aug 18, 2019 15:34
--- NOTE | 2019-08-18 16:58 | NUR ---
CASE MANAGEMENT: REVIEW 08/17/2019 SI: DEHYDRATION . BACTEREMIA . ENCEPHALOPATHY . RHABDOMYOLYSIS 98.8 88 20 127/80 97% ON RA IS: ZOSYN IV Q8/HR D5 NS IVF @ 75ML/HR HEPARIN SUBQ Q12HR HYDRALAZINE PO Q8HR PROSCAR PO QD FLOMAX PO BID CLONIDINE Q2HR/PRN URECHOLINE PO TID NORVASC PO QD MED/SURG STATUS DCP: PATIENT IS FROM HOME . SEEKING SNF PLACEMENT CASE MANAGEMENT: REVIEW 08/18/2019 SI: DEHYDRATION . BACTEREMIA . ENCEPHALOPATHY . RHABDOMYOLYSIS 98.3 89 17 131/83 98% ON RA IS: ZOSYN IV Q8/HR D5 NS IVF @ 75ML/HR HEPARIN SUBQ Q12HR HYDRALAZINE PO Q8HR PROSCAR PO QD FLOMAX PO BID CLONIDINE Q2HR/PRN URECHOLINE PO TID NORVASC PO QD MED/SURG STATUS DCP: PATIENT IS FROM HOME . SEEKING SNF PLACEMENT PLAN: LESA LUMBAR TAP -R/O NEURO SYPHILIS
--- NOTE | 2019-08-18 19:31 | NUR ---
NURSE NOTES: Received patient in bed, asleep, no acute distress noted, IV site is clean dry and intact. Call light is within reach, bed is lowered, locked and alarm is on. Will continue to monitor for comfort and safety.
--- NOTE | 2019-08-18 19:39 | NUR ---
HAND-OFF: Report given to ARELY Nagy RN.
[2019-08-19] VITALS: BP 170/82
[2019-08-19] MEDS: Piperacillin/Tazobactam 3.375 GM in NS 110 ML IVPB SCH ×2 (01:13→08:05)
[2019-08-19 04:00] VITALS: BP 160/74
[2019-08-19] MEDS: HydrALAZINE 50mg tab ORAL SCH ×3 (05:37→22:00)
--- NOTE | 2019-08-19 07:15 | NUR ---
NURSE NOTES: Received patient in bed, asleep, no sign of distress noted, IVF patent and infusing well, dickson cath to gravity,on fall and aspiration precaution , Call light is within reach, bed is lowered, locked and alarm is on.both side rails up for safety, turn q2h for comfort and good circulation,Will continue to monitor for comfort and safety sarah salvador
[2019-08-19] MEDS: Tamsulosin 0.4mg cap ORAL SCH ×2 (08:07→17:22)
[2019-08-19] MEDS: Bethanechol 25mg Tab ORAL SCH ×3 (08:07→17:22)
[2019-08-19 08:13] VITALS: BP 162/76
[2019-08-19] MEDS: cloNIDine 0.2mg Tab ORAL PRN (08:45)
[2019-08-19] MEDS: Heparin 5000 units/ml inj SUBQ SCH ×2 (08:46→20:14)
[2019-08-19 09:27] VITALS: BP 145/72
--- NOTE | 2019-08-19 09:41 | Urology Progress Note ---
Assessment/Plan Assessment/Plan: 1. Urinary retention. 2. BPH history. 3. Probable neurogenic bladder. 4. Renal insufficiency acute on chronic. 5. Hematuria. dickson remains indwelling for now, replaced 08/11 secured to pt's leg hand irrigated and do PRN cont with flomax, proscar urecholine dose increased minimize seroquel on abx repeat voiding trial later, once more alert and ambulatory cysto later Subjective Allergies: Coded Allergies: No Known Allergies (Unverified , 07/21/19) Subjective all noted, no new complaints, dickson indwelling Objective Last 24 Hour Vital Signs Date Time Temp Pulse Resp B/P (MAP) Pulse Ox O2 Delivery O2 Flow Rate FiO2 08/19/19 09:27 145/72 (96) 08/19/19 08:50 Room Air 08/19/19 08:45 162/76 08/19/19 08:13 97.9 80 17 162/76 (104) 98 08/19/19 08:07 81 158/78 08/19/19 05:37 158/78 08/19/19 04:00 98.5 81 16 160/74 (102) 98 08/19/19 00:00 98.1 83 18 170/82 (111) 97 08/18/19 22:30 144/75 08/18/19 21:11 Room Air 08/18/19 20:55 98.1 74 14 140/69 (92) 98 08/18/19 16:00 98.3 89 17 131/83 (99) 98 08/18/19 13:36 136/81 08/18/19 12:09 98.1 92 19 136/81 (99) 95 Intake and Output 08/18/19 08/19/19 19:00 07:00 Intake Total 615.0 ml 575 ml Output Total 1150 ml Balance 615.0 ml -575 ml IV Total 615.0 ml 75 ml Other 500 ml Output Urine Total 1150 ml # Bowel Movements 1 Microbiology Date/Time Source Procedure Growth Status 08/13/19 09:25 Blood Blood Culture - Final NO GROWTH AFTER 5 DAYS Complete 07/21/19 17:35 Nasal Nares - Final Complete 07/21/19 17:35 Nasal Nares - Final Complete 08/13/19 11:10 Indwelling Cath Urine Culture - Final Morganella Morg Spp Morganii Complete Current Medications Medications (Trade) Dose Ordered Sig/Hanh Route PRN Reason Start Time Stop Time Status Last Admin Dose Admin Acetaminophen (Tylenol) 650 mg Q6H PRN ORAL Mild Pain/Temp > 100.5 08/16/19 03:30 09/12/19 15:22 08/17/19 11:29 Amlodipine Besylate (Norvasc) 10 mg DAILY ORAL 08/16/19 09:00 08/25/19 17:59 08/19/19 08:07 Bethanechol Chloride (Urecholine) 50 mg THREE TIMES A DAY ORAL 08/16/19 09:00 09/01/19 13:59 08/19/19 08:07 Bisacodyl (Dulcolax) 10 mg DAILYPRN PRN RECTAL Constipation 08/16/19 15:30 09/12/19 15:22 08/17/19 03:21 Clonidine HCl (Catapres TTS-3) 1 patch QWEEK TDERMAL 08/19/19 12:00 08/21/19 11:59 Clonidine HCl (Catapres tab) 0.2 mg Q2H PRN ORAL sbp>170 08/16/19 03:30 09/12/19 15:23 08/19/19 08:45 Dextrose/Sodium Chloride 1,000 ml @ 75 mls/hr [id number] IV 08/16/19 16:00 09/15/19 15:59 08/18/19 08:44 Finasteride (Proscar) 5 mg DAILY ORAL 08/16/19 09:00 08/27/19 08:59 08/19/19 08:07 Folic Acid (Folate) 1 mg DAILY ORAL 08/16/19 09:00 09/05/19 08:59 08/19/19 08:07 Haloperidol Lactate (Haldol) 2.5 mg Q6H PRN IM Agitation 08/16/19 06:15 09/14/19 12:14 Heparin Sodium (Porcine) (Heparin 5000 units/ml) 5,000 units EVERY 12 HOURS SUBQ 08/16/19 09:00 08/31/19 20:59 08/19/19 08:46 Hydralazine HCl (Apresoline) 100 mg Q8HR ORAL 08/16/19 14:00 09/15/19 13:59 08/19/19 05:37 Piperacillin Sod/ Tazobactam Sod 3.375 gm/Sodium Chloride 110 ml @ 27.5 mls/hr Q8H IVPB 08/16/19 09:00 08/20/19 08:59 08/19/19 08:05 Quetiapine Fumarate (SEROqueL) 25 mg Q6H PRN ORAL For Anxiety 08/16/19 03:30 09/12/19 15:23 Tamsulosin HCl (Flomax) 0.4 mg BID ORAL 08/16/19 09:00 08/26/19 17:59 08/19/19 08:07 Height (Feet): 5 Height (Inches): 5.00 Weight (Pounds): 176 Objective exam stable dickson indwelling Kali Serrano MD Aug 19, 2019 09:41
--- NOTE | 2019-08-19 10:00 | Progress Note ---
DATE: 08/18/2019 SUBJECTIVE: The patient continues to have waxing and waning consciousness. He is still confused. He is diagnosed with UTI, minimally verbal, weak. MENTAL STATUS EXAMINATION: The patient is , confused. Mood is neutral. Affect is flat. Thought process is concrete. Thought content, no suicidal or homicidal ideation. ASSESSMENT: Nury Mandel M.D. DR: MARLENE JOB#: [id number] CC: THU
--- NOTE | 2019-08-19 11:00 | NUR ---
nurse notes seen by PMD Dr Cervantes and Dr Nichols signed consent fo LESA scheduled for at 7 am, Witnessed by primary nurse sarah salvador
--- NOTE | 2019-08-19 11:35 | Cardiac Electrophysiology PN ---
Assessment/Plan Status Narrative MRI Brain: Multiple foci of restricted diffusion, as described. Most of these were evident on prior study of 08/05/2019, indicating that these are residual subacute infarcts. However, there are a few new areas as detailed above, indicating lacunar infarcts that have occurred since the previous study Assessment/Plan 1. 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 EF 60%. LESA pending in AM Off anticoagulation to prevent hemorrhagic conversion of CVA until cleared by Neurology.Remained in SR while on tele. Agree that patient will benefit from LESA that is scheduled for 2. Hypertension. On Norvasc 10 mg daily, hydralazine 100 mg b.i.d., clonidine patch weekly and p.r.n. clonidine 3. Benign prostatic hypertrophy on Flomax and Proscar. 4. Dementia, on Seroquel per Dr. Mandel. 5. Acute rhabdomyolysis. 6. Staph bacteremia.On Abx 7. Stage 3 chronic kidney disease. 8. AMS. ?due to CVA. FU Dr Sarah CARTER RN Subjective Subjective Off tele,Alert in NAD. LESA scheduled for . 2 physician consent is signed Objective Last 24 Hour Vital Signs Date Time Temp Pulse Resp B/P (MAP) Pulse Ox O2 Delivery O2 Flow Rate FiO2 08/19/19 09:27 145/72 (96) 08/19/19 08:50 Room Air 08/19/19 08:45 162/76 08/19/19 08:13 97.9 80 17 162/76 (104) 98 08/19/19 08:07 81 158/78 08/19/19 05:37 158/78 08/19/19 04:00 98.5 81 16 160/74 (102) 98 08/19/19 00:00 98.1 83 18 170/82 (111) 97 08/18/19 22:30 144/75 08/18/19 21:11 Room Air 08/18/19 20:55 98.1 74 14 140/69 (92) 98 08/18/19 16:00 98.3 89 17 131/83 (99) 98 08/18/19 13:36 136/81 08/18/19 12:09 98.1 92 19 136/81 (99) 95 Intake and Output 08/18/19 08/19/19 19:00 07:00 Intake Total 615.0 ml 575 ml Output Total 1150 ml Balance 615.0 ml -575 ml IV Total 615.0 ml 75 ml Other 500 ml Output Urine Total 1150 ml # Bowel Movements 1 Objective HEAD AND NECK: No JVD. LUNGS: Clear. CARDIOVASCULAR: Regular S1 and S2 with no gallop or murmur. ABDOMEN: Soft and nontender. EXTREMITIES: No pitting edema. Lance Nichols MD Aug 19, 2019 11:35
--- NOTE | 2019-08-19 12:08 | Nephrology Progress Note ---
Assessment/Plan Assessment/Plan: A/P 1) Hypertension, benign - stable (2) Toxic metabolic encephalopathy -LESA to be done via 2 MD consent today Abx per ID (3) CKD 4- Cr stable within baseline (4) Dehydration- IVFs prn (5) Urinary retention- per Urology, dickson Subjective Date patient seen: Aug 19, 2019 Time patient seen: 12:07 ROS Limited/Unobtainable: No Allergies: Coded Allergies: No Known Allergies (Unverified , 07/21/19) Subjective Patient flat affect in no distress Objective Last 24 Hour Vital Signs Date Time Temp Pulse Resp B/P (MAP) Pulse Ox O2 Delivery O2 Flow Rate FiO2 08/19/19 09:27 145/72 (96) 08/19/19 08:50 Room Air 08/19/19 08:45 162/76 08/19/19 08:13 97.9 80 17 162/76 (104) 98 08/19/19 08:07 81 158/78 08/19/19 05:37 158/78 08/19/19 04:00 98.5 81 16 160/74 (102) 98 08/19/19 00:00 98.1 83 18 170/82 (111) 97 08/18/19 22:30 144/75 08/18/19 21:11 Room Air 08/18/19 20:55 98.1 74 14 140/69 (92) 98 08/18/19 16:00 98.3 89 17 131/83 (99) 98 08/18/19 13:36 136/81 08/18/19 12:09 98.1 92 19 136/81 (99) 95 Intake and Output 08/18/19 08/19/19 19:00 07:00 Intake Total 615.0 ml 575 ml Output Total 1150 ml Balance 615.0 ml -575 ml IV Total 615.0 ml 75 ml Other 500 ml Output Urine Total 1150 ml # Bowel Movements 1 Height (Feet): 5 Height (Inches): 5.00 Weight (Pounds): 176 General Appearance: no apparent distress EENT: normal ENT inspection Neck: normal alignment, supple Cardiovascular: regular rhythm Respiratory/Chest: normal breath sounds Abdomen: non tender, soft Edema: no edema noted Arm (L), no edema noted Arm (R), no edema noted Leg (L), no edema noted Leg (R), no edema noted Pedal (L), no edema noted Pedal (R), no edema noted Generalized Luan Oneill MD Aug 19, 2019 12:08
[2019-08-19 12:18] VITALS: BP 131/48
[2019-08-19] MEDS: D5NS 1,000 ML IV SCH (12:32)
--- NOTE | 2019-08-19 13:53 | NUR ---
CASE MANAGEMENT:REVIEW SI;METABOLIC ENCEPHALOPATHY. 97.8 74 19 162/76 98% ON RA LABS - NONE IS;ZOSYN IV Q8 HRS HEPARIN SUBQ Q12 HRS FLOMAX PO BID PROSCAR PO QD MED SURG STATUS PLAN;LESA DCP;FROM HOME
--- NOTE | 2019-08-19 15:35 | Infectious Diseases Prog Note ---
Assessment/Plan Problems: (1) Fever Assessment & Plan: resolved , source suspect CAUTI with morganella morganii , already recieved zosyn for 6 days , CXR is negative for any infiltrates, monitor blood culture x2 , will switch zosyn to penicillin G iv for 10 DAYS to cover for possible neurosyphillis (2) Positive RPR test Assessment & Plan: with low titer and reactive FTA-ABS , rule out neurosyphilis , LP was NOT done since he was altered as per radiologist . TPPA serum is pending . screening for HIV is negative . already started on zosyn for CAUTI for 6 days , will switch to penicillin G to finish his course for possible neurosyphilis (3) CVA (cerebral vascular accident) Assessment & Plan: recurrent , with multiple vascular emboli, rule out cardiogenic source, thrombotic VS Mar[place] related vegetations. repeated blood cultures so far have been negative, with negative JOHN, and RF screening , recommend LESA to better evaluate his valves . doesn't meet criteria for infectious endocarditis. on Penicillin to treat for possible neurosyphillis (4) CKD (chronic kidney disease) stage 3, GFR 30-59 ml/min Assessment & Plan: avoid nephrotoxics, close monitoring of renal function, follow up with nephrology (5) Failure to thrive in adult Assessment & Plan: etiology? dementia possibly, screening for HIV is negative , may need placement (6) Encephalopathy acute Assessment & Plan: improving now, suspect recurrent CVA, VS meds side effect , VS metabolic. already on antibiotics to cover for possible neurosyphillis . neurology is following (7) Urinary retention Assessment & Plan: S/P dickson catheter placement , urology is following Subjective Constitutional: Reports: no symptoms HEENT: Reports: no symptoms Respiratory: Reports: no symptoms Breasts: Reports: no symptoms Cardiovascular: Reports: no symptoms Gastrointestinal/Abdominal: Reports: no symptoms Genitourinary: Reports: no symptoms Neurologic: Reports: no symptoms Psychiatric: Reports: no symptoms Skin: Reports: no symptoms Endocrine: Reports: no symptoms Hematologic: Reports: no symptoms Musculoskeletal: Reports: no symptoms Allergies: Coded Allergies: No Known Allergies (Unverified , 07/21/19) Subjective He was awake and alert , resting in bed comfortable, off restrains , responsive well to verbal commands , no cough or SOB, no nausea or vomiting , no diarrhea , had Dickson catheter placed in on 08/11/19 Objective Vital Signs Last 24 Hour Vital Signs Date Time Temp Pulse Resp B/P (MAP) Pulse Ox O2 Delivery O2 Flow Rate FiO2 08/19/19 13:05 131/48 08/19/19 12:31 131/48 08/19/19 12:18 97.8 74 19 131/48 (75) 98 08/19/19 09:27 145/72 (96) 08/19/19 08:50 Room Air 08/19/19 08:45 162/76 08/19/19 08:13 97.9 80 17 162/76 (104) 98 08/19/19 08:07 81 158/78 08/19/19 05:37 158/78 08/19/19 04:00 98.5 81 16 160/74 (102) 98 08/19/19 00:00 98.1 83 18 170/82 (111) 97 08/18/19 22:30 144/75 08/18/19 21:11 Room Air 08/18/19 20:55 98.1 74 14 140/69 (92) 98 08/18/19 16:00 98.3 89 17 131/83 (99) 98 Height (Feet): 5 Height (Inches): 5.00 Weight (Pounds): 176 General Appearance: WD/WN, no acute distress HEENT: normocephalic, atraumatic, anicteric, mucous membranes moist, PERRL Respiratory/Chest: chest wall non-tender, lungs clear, normal breath sounds, no respiratory distress, no accessory muscle use Cardiovascular: normal peripheral pulses, normal rate, regular rhythm, no gallop/murmur, no JVD Abdomen: normal bowel sounds, soft, non tender, no organomegaly, non distended , no mass, no scars Genitourinary: normal external genitalia Extremities: no cyanosis, no clubbing Skin: no rash, no lesions, no ulcers 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, alert, responsive Lymphatic: no neck adenopathy, no groin adenopathy Musculoskeletal: normal muscle bulk, no effusion Current Medications Medications (Trade) Dose Ordered Sig/Hanh Route PRN Reason Start Time Stop Time Status Last Admin Dose Admin Acetaminophen (Tylenol) 650 mg Q6H PRN ORAL Mild Pain/Temp > 100.5 08/16/19 03:30 09/12/19 15:22 08/17/19 11:29 Amlodipine Besylate (Norvasc) 10 mg DAILY ORAL 08/16/19 09:00 08/25/19 17:59 08/19/19 08:07 Bethanechol Chloride (Urecholine) 50 mg THREE TIMES A DAY ORAL 08/16/19 09:00 09/01/19 13:59 08/19/19 12:31 Bisacodyl (Dulcolax) 10 mg DAILYPRN PRN RECTAL Constipation 08/16/19 15:30 09/12/19 15:22 08/17/19 03:21 Clonidine HCl (Catapres TTS-3) 1 patch QWEEK TDERMAL 08/19/19 12:00 08/21/19 11:59 08/19/19 12:31 Clonidine HCl (Catapres tab) 0.2 mg Q2H PRN ORAL sbp>170 08/16/19 03:30 09/12/19 15:23 08/19/19 08:45 Dextrose/Sodium Chloride 1,000 ml @ 75 mls/hr [id number] IV 08/16/19 16:00 09/15/19 15:59 08/19/19 12:32 Finasteride (Proscar) 5 mg DAILY ORAL 08/16/19 09:00 08/27/19 08:59 08/19/19 08:07 Folic Acid (Folate) 1 mg DAILY ORAL 08/16/19 09:00 09/05/19 08:59 08/19/19 08:07 Haloperidol Lactate (Haldol) 2.5 mg Q6H PRN IM Agitation 08/16/19 06:15 09/14/19 12:14 Heparin Sodium (Porcine) (Heparin 5000 units/ml) 5,000 units EVERY 12 HOURS SUBQ 08/16/19 09:00 08/31/19 20:59 08/19/19 08:46 Hydralazine HCl (Apresoline) 100 mg Q8HR ORAL 08/16/19 14:00 09/15/19 13:59 08/19/19 13:05 Piperacillin Sod/ Tazobactam Sod 3.375 gm/Sodium Chloride 110 ml @ 27.5 mls/hr Q8H IVPB 08/16/19 09:00 08/27/19 23:59 08/19/19 08:05 Quetiapine Fumarate (SEROqueL) 25 mg Q6H PRN ORAL For Anxiety 08/16/19 03:30 09/12/19 15:23 Tamsulosin HCl (Flomax) 0.4 mg BID ORAL 08/16/19 09:00 08/26/19 17:59 08/19/19 08:07 Anastasia Lion M.D. Aug 19, 2019 15:35
[2019-08-19 16:04] VITALS: BP 139/66
[2019-08-19] MEDS: NS IVPB SCH ×2 (17:22→20:13)
[2019-08-19] MEDS: PENICILLIN POTASSIUM MU IVPB SCH ×2 (17:22→20:13)
--- NOTE | 2019-08-19 17:29 | Neurology Progress Note ---
Interim History Interim History Interim History Mr. Reji Au is a 79-year-old, right-handed, black gentleman, who has a relatively benign past history. He was brought to the hospital on 07/21/2019 after he had apparently fallen down and was on the floor of his apartment for 4 days. He himself has no recollection of what happened. Since he has been here he has been noted to have some gait problems. He is more verbal. He does follow commands and is able to communicate. He however still prefers to keep his eyes closed. His urinary tract infection is being treated appropriately. He has still not had his LESA or lumbar puncture performed. Review of Systems Neuro Review of Systems Benign. Objective Physical Exam Last Vital Signs Date Time Temp Pulse Resp B/P (MAP) Pulse Ox O2 Delivery O2 Flow Rate FiO2 08/19/19 16:04 97.9 75 19 139/66 (90) 99 08/19/19 08:50 Room Air Neurologic Exam Objective PHYSICAL EXAMINATION: GENERAL: He is a well-developed, relatively well-nourished, Black gentleman, lying in bed in no acute distress. HEAD: Normocephalic and atraumatic. NECK: No neck rigidity was observed. EENT examination: Benign. NEUROLOGICAL EXAMINATION: Mental status examination: He was awake and more alert. He was oriented to self, [facility] and July only. He did not cooperate for further mental status testing. Frontal systems tasks: He was unable to cooperate. Speech: He had no dysarthria. Language: He was able to comprehend and express himself. Cranial nerve examination: II: The visual akng were intact on confrontation. III, IV & : The external ocular movements were full. The pupils were 3 mm in diameter and reactive sluggishly to light. V-VII: The corneal reflexes were equal bilaterally. He had a trace right seventh central facial paresis. VIII: He was able to hear and had no nystagmus. IX: The palate moved symmetrically on phonation. X: He had no hoarseness of voice. XI: The sternocleidomastoids and trapezii functioned. XII: The tongue was in the midline. Motor system: The tone was normal in all 4 extremities. Examination of muscle mass revealed no focal wasting. Examination of power was impossible to perform accurately however he moved all 4 extremities on command and gave me good hand manager case bilaterally. Sensory examination: He was able to localize light touch. Reflexes: 2+ and bilaterally symmetrical at the biceps, triceps, brachioradialis and knees. 0 at both ankles. The plantar responses were flexor. Coordination: Could not be tested Stance: Could not be tested Gait: Could not be tested Impression/Recommendations Diagnostic Impression DIAGNOSTIC IMPRESSION: 1. Mr. Reji Au is a 79-year-old, right-handed, black gentleman, who has a relatively benign past history. He was brought to the hospital on 07/21/2019 after he had apparently fallen down and was on the floor of his apartment for 4 days. He himself has no recollection of what happened. Since he has been here he has been noted to have some gait problems. 2. He is more verbal. He does follow commands and is able to communicate. He however still prefers to keep his eyes closed. His urinary tract infection is being treated appropriately. He has still not had his LESA or lumbar puncture performed. 3. On neurological examination, at this time, he is awake but not completely alert. He is oriented to self, [facility] and July only. He does not cooperate for further mental status testing. He is able to comprehend and express himself. He has a trace right seventh central facial paresis. He however does not demonstrate any lateralizing findings on his motor, sensory, or reflex examination. 4. Laboratory data on my initial evaluation revealed that he was anemic with a hemoglobin of 11.5 G. His latest BUN was 42 and latest creatinine is 2.3. When he came in his CK was 2257 and it had normalized to 241. He was folic acid deficient with a folic acid level of 7.5. His RPR was positive in a low titre of 1:1. The FTA-ABS is reactive. 5. The urine analysis performed today reveals 3+ leukocyte esterase, 5-10 red blood cells and too numerous to count white blood cells per high-power field. 6. The MRI scan of the brain performed on 08/05/2019 revealed multiple acute infarcts involving both cerebral hemispheres, basal ganglia, and the left cerebellum. In addition multiple old small infarcts scattered in the brain were also seen. 7. The MRI scan of the brain repeated on 08/12/2019 revealed multiple new acute infarctions in multiple different vascular territories. 8. A CT of the brain done today reveals atrophy, deep white matter changes and old infarcts but no acute pathology. 9. Prolonged cardiac monitoring has revealed no arrhythmia. 10. The patient's history, neurological examination, laboratory data, and imaging studies, most consistent with multiple showers of emboli to the brain over multiple different time periods. Leading to significant neurological dysfunction. 11. Patient also has a positive peripheral RPR and FTA-ABS. This is indicative of exposure to syphilis. Neurosyphilis should be excluded. 12. His recent decline in neurological function may be related to the acute urinary tract infection in addition to all the other problems that he has. He is brighter and better behaved today. Recommendations RECOMMENDATIONS: 1. Continue present management. 2. Transesophageal echocardiogram with bubble study should be performed to evaluate the patient for a cardiogenic source of emboli. The patient has agreed with it when he is lucid. If in the future there is a problem with obtaining consent then it should be noted that it is medically necessary to get the procedure done so that the patient can get adequate therapy. If not done the patient is at significant risk of having more strokes. 3. Agree with obtaining a lumbar puncture to evaluate the patient for neurosyphilis. 4. Continue physical and occupational therapy to mobilize patient. 5. Aggressive treatment of acute infectious process. 6. Folic acid 1 mg daily for folate deficiency. 7. Observe closely. Beka Smith M.D., M.S.P.H. Neurologist & Clinical Neurophysiologist Beka Smith MD Aug 19, 2019 17:29
--- NOTE | 2019-08-19 18:25 | NUR ---
NURSE NOTES:WOUND CARE FOLLOW-UP NOTES: Pt's skin assessment completed with Primary nurse. All bony prominences including sacrum and both heels assessed and no evidence of Skin breakdown noted . All wound prevention protocols continued as care-planned. Recommendations:Apply Moisture Barrier Paste to Sacrum . Cover with Optifoam drsg. Change every 3 days and prn. Apply Moisture Barrier Paste to Scrotum and bilat ischium with each incontinence care. Apply Cavilon Skin Barrier to both heels. Cover each heel with Optifoam drsg. Change every 7 days and prn. Reposition at least every 32hours or as tolerated. Off-load heels with pillow.
--- NOTE | 2019-08-19 18:58 | NUR ---
HAND-OFF: Report given to ARELY Malagon RN
--- NOTE | 2019-08-19 19:18 | NUR ---
NURSE NOTES: Received patient in bed, asleep, no acute distress noted, IV site is clean dry and intact, call light is within reach, bed is lowered, locked and alarm is on, will continue to monitor for comfort and safety.
[2019-08-19] MEDS: Haloperidol 5mg/ml Inj IM PRN (20:27)
[2019-08-20] VITALS (7 sets, daily range): BP systolic 122–175; BP diastolic 69–91
[2019-08-20] MEDS: PENICILLIN POTASSIUM MU IVPB SCH ×6 (01:13→22:12)
[2019-08-20] MEDS: NS IVPB SCH ×6 (01:13→22:12)
[2019-08-20] MEDS: HydrALAZINE 50mg tab ORAL SCH ×3 (04:53→22:12)
--- NOTE | 2019-08-20 07:42 | Nephrology Progress Note ---
Assessment/Plan Assessment/Plan: A/P 1) Hypertension, benign - stable, adjust if needed (2) Toxic metabolic encephalopathy - mgmt per ID (3) CKD 4- Cr 2.6. Recheck in am (4) Dehydration- IVFs prn (5) Urinary retention- per Urology, dickson Subjective Date patient seen: Aug 20, 2019 Time patient seen: 07:38 ROS Limited/Unobtainable: No Allergies: Coded Allergies: No Known Allergies (Unverified , 07/21/19) Subjective Patient resting Objective Last 24 Hour Vital Signs Date Time Temp Pulse Resp B/P (MAP) Pulse Ox O2 Delivery O2 Flow Rate FiO2 08/20/19 04:53 155/74 08/20/19 04:00 97.7 87 20 158/91 (113) 98 08/20/19 01:52 98.7 08/20/19 00:00 98.7 74 18 145/74 (97) 98 08/19/19 21:40 Room Air 08/19/19 16:04 97.9 75 19 139/66 (90) 99 08/19/19 13:05 131/48 08/19/19 12:31 131/48 08/19/19 12:18 97.8 74 19 131/48 (75) 98 08/19/19 09:27 145/72 (96) 08/19/19 08:50 Room Air 08/19/19 08:45 162/76 08/19/19 08:13 97.9 80 17 162/76 (104) 98 08/19/19 08:07 81 158/78 Intake and Output 08/19/19 08/20/19 19:00 07:00 Intake Total 1515.0 ml Balance 1515.0 ml Intake Oral 900 ml IV Total 615.0 ml Height (Feet): 5 Height (Inches): 5.00 Weight (Pounds): 176 General Appearance: no apparent distress, alert EENT: normal ENT inspection Neck: normal alignment Cardiovascular: normal rate, regular rhythm Respiratory/Chest: lungs clear, normal breath sounds Abdomen: non tender, soft Edema: no edema noted Arm (L), no edema noted Arm (R), no edema noted Leg (L), no edema noted Leg (R), no edema noted Pedal (L), no edema noted Pedal (R), no edema noted Generalized De ThaliaLuan MD Aug 20, 2019 07:42
--- NOTE | 2019-08-20 08:00 | NUR ---
NURSE NOTES: Patient awake to name respirations unlabored.IV fluids infusing as ordered.Walsh catheter is in place and draining clear fanny color urine.patient has on bilateral soft wrist restraints. Assist patient with meals.Bed alarm is on,call light within reach.
[2019-08-20] MEDS: Tamsulosin 0.4mg cap ORAL SCH ×2 (08:58→18:02)
[2019-08-20] MEDS: Bethanechol 25mg Tab ORAL SCH ×3 (08:59→18:04)
[2019-08-20] MEDS: Heparin 5000 units/ml inj SUBQ SCH ×2 (09:05→20:46)
--- NOTE | 2019-08-20 11:33 | Pulmonology Progress Note ---
Assessment/Plan Problems: (1) Rhabdomyolysis (2) JERMAINE (acute kidney injury) (3) Dehydration (4) Episode of generalized weakness (5) Weakness (6) Gait abnormality (7) Failure to thrive in adult (8) Hypertension, benign (9) Toxic metabolic encephalopathy (10) Bacteremia due to Staphylococcus (11) Positive RPR test (12) CVA (cerebral vascular accident) (13) Syphilis Assessment/Plan Assessment/Plan 1. Acute and chronic CVA, likely embolic 2. AMS, 2/2 above 3. 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 Dehydration/rhabdomyolysis/lactic acidosis - RESOLVED 5. Hyperproteinemia, possible myeloma 6. Hypertension - POORLY CONTROLLED 7. JERMAINE vs CKD, likely both 8. Obstructive uropathy 9. Generalized weakness 10. Anemia, FOBT neg PLAN: LESA to be done via 2 MD consent tomorrow Abx per ID: PCN G Per IR unable to do LP QT ok, Haldol 2.5 q6 PRN IM, Seroquel PO if able BP control PT/OT DVT Px: Hep SQ Dispo planning to SNF once acute issues resolved Subjective Allergies: Coded Allergies: No Known Allergies (Unverified , 07/21/19) Subjective NAEO more alert AFVSS no cough no SOB no distress Objective Last 24 Hour Vital Signs Date Time Temp Pulse Resp B/P (MAP) Pulse Ox O2 Delivery O2 Flow Rate FiO2 08/20/19 09:04 87 156/80 08/20/19 09:00 Room Air 08/20/19 08:00 98.1 87 19 175/75 (108) 98 08/20/19 04:53 155/74 08/20/19 04:00 97.7 87 20 158/91 (113) 98 08/20/19 01:52 98.7 08/20/19 00:00 98.7 74 18 145/74 (97) 98 08/19/19 21:40 Room Air 08/19/19 16:04 97.9 75 19 139/66 (90) 99 08/19/19 13:05 131/48 08/19/19 12:31 131/48 08/19/19 12:18 97.8 74 19 131/48 (75) 98 Intake and Output 08/19/19 08/20/19 19:00 07:00 Intake Total 1515.0 ml Balance 1515.0 ml Intake Oral 900 ml IV Total 615.0 ml General Appearance: no acute distress HEENT: normocephalic, atraumatic, anicteric, mucous membranes moist Respiratory/Chest: lungs clear Cardiovascular: normal peripheral pulses, normal rate, regular rhythm Abdomen: normal bowel sounds, soft, non tender, no organomegaly, non distended , no mass Extremities: no cyanosis, no clubbing, no edema Current Medications Medications (Trade) Dose Ordered Sig/Hanh Route PRN Reason Start Time Stop Time Status Last Admin Dose Admin Acetaminophen (Tylenol) 650 mg Q6H PRN ORAL Mild Pain/Temp > 100.5 08/16/19 03:30 09/12/19 15:22 08/20/19 01:14 Amlodipine Besylate (Norvasc) 10 mg DAILY ORAL 08/16/19 09:00 08/25/19 17:59 08/20/19 09:04 Bethanechol Chloride (Urecholine) 50 mg THREE TIMES A DAY ORAL 08/16/19 09:00 09/01/19 13:59 08/20/19 08:59 Bisacodyl (Dulcolax) 10 mg DAILYPRN PRN RECTAL Constipation 08/16/19 15:30 09/12/19 15:22 08/17/19 03:21 Clonidine HCl (Catapres TTS-3) 1 patch QWEEK TDERMAL 08/19/19 12:00 08/21/19 11:59 08/19/19 12:31 Clonidine HCl (Catapres tab) 0.2 mg Q2H PRN ORAL sbp>170 08/16/19 03:30 09/12/19 15:23 08/19/19 08:45 Dextrose/Sodium Chloride 1,000 ml @ 75 mls/hr [id number] IV 08/16/19 16:00 09/15/19 15:59 08/19/19 12:32 Finasteride (Proscar) 5 mg DAILY ORAL 08/16/19 09:00 08/27/19 08:59 08/20/19 08:58 Folic Acid (Folate) 1 mg DAILY ORAL 08/16/19 09:00 09/05/19 08:59 08/20/19 08:58 Haloperidol Lactate (Haldol) 2.5 mg Q6H PRN IM Agitation 08/16/19 06:15 09/14/19 12:14 08/19/19 20:27 Heparin Sodium (Porcine) (Heparin 5000 units/ml) 5,000 units EVERY 12 HOURS SUBQ 08/16/19 09:00 08/31/19 20:59 08/20/19 09:05 Hydralazine HCl (Apresoline) 100 mg Q8HR ORAL 08/16/19 14:00 09/15/19 13:59 08/20/19 04:53 Penicillin G Potassium 3 mu/ Sodium Chloride 55 ml @ 110 mls/hr Q4HR IVPB 08/19/19 17:00 08/29/19 16:59 08/20/19 08:57 Quetiapine Fumarate (SEROqueL) 25 mg Q6H PRN ORAL For Anxiety 08/16/19 03:30 09/12/19 15:23 Tamsulosin HCl (Flomax) 0.4 mg BID ORAL 08/16/19 09:00 08/26/19 17:59 08/20/19 08:58 Shiraz Cervantes MD Aug 20, 2019 11:33
--- NOTE | 2019-08-20 11:33 | NUR ---
CASE MANAGEMENT: REVIEW 08/20/2019 SI: DEHYDRATION . BACTEREMIA . ENCEPHALOPATHY . RHABDOMYOLYSIS 98.1 87 19 175/75 98% ON RA IS: ZOSYN IV Q8/HR IVF D5 NS@ 75ML/HR HEPARIN SUBQ Q12HR HYDRALAZINE PO Q8HR PROSCAR PO QD FLOMAX PO BID CLONIDINE Q2HR/PRN URECHOLINE PO TID NORVASC PO QD MED/SURG STATUS DCP: PATIENT IS FROM HOME . SEEKING SNF PLACEMENT PLAN: LESA IN AM LUMBAR TAP -R/O NEURO SYPHILIS -PENDING; PATIENT TOO LETHARGIC TO COMPLETE EXAM URINE CX (+)
--- NOTE | 2019-08-20 12:57 | NUR ---
*-* INSURANCE *-* UPDATE CLINICALS HAVE BEEN FAXED TO: [facility] OPAL:PRIETO P: [phone] F: [phone]
--- NOTE | 2019-08-20 13:18 | Urology Progress Note ---
Assessment/Plan Assessment/Plan: 1. Urinary retention. 2. BPH history. 3. Probable neurogenic bladder. 4. Renal insufficiency acute on chronic. 5. Hematuria. dickson remains indwelling for now, replaced 08/11 secured to pt's leg hand irrigated and do PRN cont with flomax, proscar urecholine dose increased minimize seroquel on abx repeat voiding trial later, once more alert and ambulatory cysto later Subjective Allergies: Coded Allergies: No Known Allergies (Unverified , 07/21/19) Subjective all noted, no new complaints, dickson indwelling Objective Last 24 Hour Vital Signs Date Time Temp Pulse Resp B/P (MAP) Pulse Ox O2 Delivery O2 Flow Rate FiO2 08/20/19 12:00 98.6 88 19 171/85 (113) 96 08/20/19 09:04 87 156/80 08/20/19 09:00 Room Air 08/20/19 08:00 98.1 87 19 175/75 (108) 98 08/20/19 04:53 155/74 08/20/19 04:00 97.7 87 20 158/91 (113) 98 08/20/19 01:52 98.7 08/20/19 00:00 98.7 74 18 145/74 (97) 98 08/19/19 21:40 Room Air 08/19/19 16:04 97.9 75 19 139/66 (90) 99 Intake and Output 08/19/19 08/20/19 19:00 07:00 Intake Total 1515.0 ml Balance 1515.0 ml Intake Oral 900 ml IV Total 615.0 ml Microbiology Date/Time Source Procedure Growth Status 08/13/19 09:25 Blood Blood Culture - Final NO GROWTH AFTER 5 DAYS Complete 07/21/19 17:35 Nasal Nares - Final Complete 07/21/19 17:35 Nasal Nares - Final Complete 08/13/19 11:10 Indwelling Cath Urine Culture - Final Morganella Morg Spp Morganii Complete Current Medications Medications (Trade) Dose Ordered Sig/Hanh Route PRN Reason Start Time Stop Time Status Last Admin Dose Admin Acetaminophen (Tylenol) 650 mg Q6H PRN ORAL Mild Pain/Temp > 100.5 08/16/19 03:30 09/12/19 15:22 08/20/19 01:14 Amlodipine Besylate (Norvasc) 10 mg DAILY ORAL 08/16/19 09:00 08/25/19 17:59 08/20/19 09:04 Bethanechol Chloride (Urecholine) 50 mg THREE TIMES A DAY ORAL 08/16/19 09:00 09/01/19 13:59 08/20/19 08:59 Bisacodyl (Dulcolax) 10 mg DAILYPRN PRN RECTAL Constipation 08/16/19 15:30 09/12/19 15:22 08/17/19 03:21 Clonidine HCl (Catapres TTS-3) 1 patch QWEEK TDERMAL 08/19/19 12:00 08/21/19 11:59 08/19/19 12:31 Clonidine HCl (Catapres tab) 0.2 mg Q2H PRN ORAL sbp>170 08/16/19 03:30 09/12/19 15:23 08/19/19 08:45 Dextrose/Sodium Chloride 1,000 ml @ 75 mls/hr [id number] IV 08/16/19 16:00 09/15/19 15:59 08/19/19 12:32 Finasteride (Proscar) 5 mg DAILY ORAL 08/16/19 09:00 08/27/19 08:59 08/20/19 08:58 Folic Acid (Folate) 1 mg DAILY ORAL 08/16/19 09:00 09/05/19 08:59 08/20/19 08:58 Haloperidol Lactate (Haldol) 2.5 mg Q6H PRN IM Agitation 08/16/19 06:15 09/14/19 12:14 08/19/19 20:27 Heparin Sodium (Porcine) (Heparin 5000 units/ml) 5,000 units EVERY 12 HOURS SUBQ 08/16/19 09:00 08/31/19 20:59 08/20/19 09:05 Hydralazine HCl (Apresoline) 100 mg Q8HR ORAL 08/16/19 14:00 09/15/19 13:59 08/20/19 04:53 Penicillin G Potassium 3 mu/ Sodium Chloride 55 ml @ 110 mls/hr Q4HR IVPB 08/19/19 17:00 08/29/19 16:59 08/20/19 08:57 Quetiapine Fumarate (SEROqueL) 25 mg Q6H PRN ORAL For Anxiety 08/16/19 03:30 09/12/19 15:23 Tamsulosin HCl (Flomax) 0.4 mg BID ORAL 08/16/19 09:00 08/26/19 17:59 08/20/19 08:58 Height (Feet): 5 Height (Inches): 5.00 Weight (Pounds): 176 Objective exam stable dickson indwelling Kali Serrano MD Aug 20, 2019 13:18
--- NOTE | 2019-08-20 14:04 | Infectious Diseases Prog Note ---
Assessment/Plan Problems: (1) Fever Assessment & Plan: resolved , source suspect CAUTI with morganella morganii , received zosyn for 6 days , CXR is negative for any infiltrates, blood culture x2 is negative , now on penicillin G iv for 10 DAYS to cover for possible neurosyphillis (2) Positive RPR test Assessment & Plan: with low titer and reactive FTA-ABS , rule out neurosyphilis , LP was NOT done since he was altered as per radiologist . TPPA serum is pending . screening for HIV is negative . now on penicillin G to finish his course for possible neurosyphilis (3) CVA (cerebral vascular accident) Assessment & Plan: recurrent , with multiple vascular emboli, rule out cardiogenic source, thrombotic VS Mar[place] related vegetations. repeated blood cultures so far have been negative, with negative JOHN, and RF screening , recommend LESA to better evaluate his valves . doesn't meet criteria for infectious endocarditis. on Penicillin to treat for possible neurosyphillis (4) CKD (chronic kidney disease) stage 3, GFR 30-59 ml/min Assessment & Plan: avoid nephrotoxics, close monitoring of renal function, follow up with nephrology (5) Failure to thrive in adult Assessment & Plan: etiology? dementia possibly, screening for HIV is negative , may need placement (6) Encephalopathy acute Assessment & Plan: improving now, suspect recurrent CVA, VS meds side effect , VS metabolic. already on antibiotics to cover for possible neurosyphillis . neurology is following (7) Urinary retention Assessment & Plan: S/P dickson catheter placement , urology is following Subjective Constitutional: Reports: no symptoms HEENT: Reports: no symptoms Respiratory: Reports: no symptoms Breasts: Reports: no symptoms Cardiovascular: Reports: no symptoms Gastrointestinal/Abdominal: Reports: no symptoms Genitourinary: Reports: no symptoms Neurologic: Reports: no symptoms Psychiatric: Reports: no symptoms Skin: Reports: no symptoms Endocrine: Reports: no symptoms Hematologic: Reports: no symptoms Musculoskeletal: Reports: no symptoms Allergies: Coded Allergies: No Known Allergies (Unverified , 07/21/19) Subjective He was more awake and alert , comfortable lying in bed , back on restrains , no cough or SOB, no nausea or vomiting , no diarrhea , had Dickson catheter placed in on 08/11/19 Objective Vital Signs Last 24 Hour Vital Signs Date Time Temp Pulse Resp B/P (MAP) Pulse Ox O2 Delivery O2 Flow Rate FiO2 08/20/19 12:00 98.6 88 19 171/85 (113) 96 08/20/19 09:04 87 156/80 08/20/19 09:00 Room Air 08/20/19 08:00 98.1 87 19 175/75 (108) 98 08/20/19 04:53 155/74 08/20/19 04:00 97.7 87 20 158/91 (113) 98 08/20/19 01:52 98.7 08/20/19 00:00 98.7 74 18 145/74 (97) 98 08/19/19 21:40 Room Air 08/19/19 16:04 97.9 75 19 139/66 (90) 99 Height (Feet): 5 Height (Inches): 5.00 Weight (Pounds): 176 General Appearance: WD/WN, no acute distress HEENT: normocephalic, atraumatic, anicteric, mucous membranes moist, PERRL Respiratory/Chest: chest wall non-tender, lungs clear, normal breath sounds, no respiratory distress, no accessory muscle use Cardiovascular: normal peripheral pulses, normal rate, regular rhythm, no gallop/murmur, no JVD Abdomen: normal bowel sounds, soft, non tender, no organomegaly, non distended , no mass, no scars Extremities: no cyanosis, no clubbing Skin: no rash, no lesions, no ulcers Neurologic/Psychiatric: alert, responsive Lymphatic: no neck adenopathy, no groin adenopathy Musculoskeletal: normal muscle bulk, no effusion Current Medications Medications (Trade) Dose Ordered Sig/Hanh Route PRN Reason Start Time Stop Time Status Last Admin Dose Admin Acetaminophen (Tylenol) 650 mg Q6H PRN ORAL Mild Pain/Temp > 100.5 08/16/19 03:30 09/12/19 15:22 08/20/19 01:14 Amlodipine Besylate (Norvasc) 10 mg DAILY ORAL 08/16/19 09:00 08/25/19 17:59 08/20/19 09:04 Bethanechol Chloride (Urecholine) 50 mg THREE TIMES A DAY ORAL 08/16/19 09:00 09/01/19 13:59 08/20/19 13:12 Bisacodyl (Dulcolax) 10 mg DAILYPRN PRN RECTAL Constipation 08/16/19 15:30 09/12/19 15:22 08/17/19 03:21 Clonidine HCl (Catapres TTS-3) 1 patch QWEEK TDERMAL 08/19/19 12:00 08/21/19 11:59 08/19/19 12:31 Clonidine HCl (Catapres tab) 0.2 mg Q2H PRN ORAL sbp>170 08/16/19 03:30 09/12/19 15:23 08/19/19 08:45 Dextrose/Sodium Chloride 1,000 ml @ 75 mls/hr [id number] IV 08/16/19 16:00 09/15/19 15:59 08/19/19 12:32 Finasteride (Proscar) 5 mg DAILY ORAL 08/16/19 09:00 08/27/19 08:59 08/20/19 08:58 Folic Acid (Folate) 1 mg DAILY ORAL 08/16/19 09:00 09/05/19 08:59 08/20/19 08:58 Haloperidol Lactate (Haldol) 2.5 mg Q6H PRN IM Agitation 08/16/19 06:15 09/14/19 12:14 08/19/19 20:27 Heparin Sodium (Porcine) (Heparin 5000 units/ml) 5,000 units EVERY 12 HOURS SUBQ 08/16/19 09:00 08/31/19 20:59 08/20/19 09:05 Hydralazine HCl (Apresoline) 100 mg Q8HR ORAL 08/16/19 14:00 09/15/19 13:59 08/20/19 04:53 Penicillin G Potassium 3 mu/ Sodium Chloride 55 ml @ 110 mls/hr Q4HR IVPB 08/19/19 17:00 08/29/19 16:59 08/20/19 13:10 Quetiapine Fumarate (SEROqueL) 25 mg Q6H PRN ORAL For Anxiety 08/16/19 03:30 09/12/19 15:23 Tamsulosin HCl (Flomax) 0.4 mg BID ORAL 08/16/19 09:00 08/26/19 17:59 08/20/19 08:58 Anastasia Lion M.D. Aug 20, 2019 14:04
[2019-08-20] MEDS: D5NS 1,000 ML IV SCH ×2 (14:27)
--- NOTE | 2019-08-20 15:25 | Cardiac Electrophysiology PN ---
Assessment/Plan Status Narrative MRI Brain: Multiple foci of restricted diffusion, as described. Most of these were evident on prior study of 08/05/2019, indicating that these are residual subacute infarcts. However, there are a few new areas as detailed above, indicating lacunar infarcts that have occurred since the previous study Assessment/Plan 1. 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 EF 60%. LESA pending in AM Off anticoagulation to prevent hemorrhagic conversion of CVA until cleared by Neurology. Remained in SR while on tele. LESA is scheduled for by Dr. Virgen 2. Hypertension. On Norvasc 10 mg daily, Hydralazine 100 q8, clonidine patch weekly and p.r.n. clonidine 3. Benign prostatic hypertrophy on Flomax and Proscar. 4. Dementia, on Seroquel per Dr. Mandel. 5. Acute rhabdomyolysis. 6. Staph bacteremia.On Abx 7. Stage 3 chronic kidney disease. 8. AMS. ?due to CVA. FU Dr Sarah CARTER RN Subjective Subjective Alert in NAD. LESA scheduled for tomorrow by Dr. Virgen. 2 physician consent is signed Objective Last 24 Hour Vital Signs Date Time Temp Pulse Resp B/P (MAP) Pulse Ox O2 Delivery O2 Flow Rate FiO2 08/20/19 14:30 152/75 08/20/19 12:00 98.6 88 19 171/85 (113) 96 08/20/19 09:04 87 156/80 08/20/19 09:00 Room Air 08/20/19 08:00 98.1 87 19 175/75 (108) 98 08/20/19 04:53 155/74 08/20/19 04:00 97.7 87 20 158/91 (113) 98 08/20/19 01:52 98.7 08/20/19 00:00 98.7 74 18 145/74 (97) 98 08/19/19 21:40 Room Air 08/19/19 16:04 97.9 75 19 139/66 (90) 99 Intake and Output 08/19/19 08/20/19 18:59 06:59 Intake Total 1515.0 ml 75 ml Balance 1515.0 ml 75 ml Intake Oral 900 ml IV Total 615.0 ml 75 ml Objective HEAD AND NECK: No JVD. LUNGS: Clear. CARDIOVASCULAR: Regular S1 and S2 with no gallop or murmur. ABDOMEN: Soft and nontender. EXTREMITIES: No pitting edema. Lance Nichols MD Aug 20, 2019 15:25
--- NOTE | 2019-08-20 16:03 | Neurology Progress Note ---
Interim History Interim History Interim History Mr. Reji Au is a 79-year-old, right-handed, black gentleman, who has a relatively benign past history. He was brought to the hospital on 07/21/2019 after he had apparently fallen down and was on the floor of his apartment for 4 days. He himself has no recollection of what happened. Since he has been here he has been noted to have some gait problems. He is much more verbal. He follows commands and is able to communicate. He is keeping his eyes open today. His urinary tract infection is being treated appropriately. Plans are for a LESA tomorrow. Review of Systems Neuro Review of Systems Benign. Objective Physical Exam Last Vital Signs Date Time Temp Pulse Resp B/P (MAP) Pulse Ox O2 Delivery O2 Flow Rate FiO2 08/20/19 14:30 152/75 08/20/19 12:00 98.6 88 19 96 08/20/19 09:00 Room Air Neurologic Exam Objective PHYSICAL EXAMINATION: GENERAL: He is a well-developed, relatively well-nourished, Black gentleman, lying in bed in no acute distress. HEAD: Normocephalic and atraumatic. NECK: No neck rigidity was observed. EENT examination: Benign. NEUROLOGICAL EXAMINATION: Mental status examination: He was awake and alert. He was oriented to self, [facility] and July only. He was able to recall 3/3 words immediately but could not remember them after 1 and 3 minutes. He knew that Trump was president but cannot remember presidents prior to Trump. His mathematical skills were impaired. His visuospatial function was also impaired. Frontal systems tasks: He was unable to perform Luria's hand sequences. Speech: He had no dysarthria. Language: He was able to comprehend and express himself. Cranial nerve examination: II: The visual knag were intact on confrontation. III, IV & : The external ocular movements were full. The pupils were 3 mm in diameter and reactive sluggishly to light. V-VII: The corneal reflexes were equal bilaterally. He had a trace right seventh central facial paresis. VIII: He was able to hear and had no nystagmus. IX: The palate moved symmetrically on phonation. X: He had no hoarseness of voice. XI: The sternocleidomastoids and trapezii functioned. XII: The tongue was in the midline. Motor system: The tone was normal in all 4 extremities. Examination of muscle mass revealed no focal wasting. Examination of power was impossible to perform accurately however he moved all 4 extremities on command and gave me good hand materials mgmt tech bilaterally. Sensory examination: He was able to localize light touch. Reflexes: 2+ and bilaterally symmetrical at the biceps, triceps, brachioradialis and knees. 0 at both ankles. The plantar responses were flexor. Coordination: He performed well on [id number] testing. Stance: Deferred. Gait: Deferred. Impression/Recommendations Diagnostic Impression DIAGNOSTIC IMPRESSION: 1. Mr. Reji Au is a 79-year-old, right-handed, black gentleman, who has a relatively benign past history. He was brought to the hospital on 07/21/2019 after he had apparently fallen down and was on the floor of his apartment for 4 days. He himself has no recollection of what happened. Since he has been here he has been noted to have some gait problems. 2. He is much more verbal. He follows commands and is able to communicate. He is keeping his eyes open today. His urinary tract infection is being treated appropriately. Plans are for a LESA tomorrow. 3. On neurological examination, at this time, he is awake and alert. He is oriented to self, [facility] and July only. He does have significant problems with recent and remote memory, visual-spatial function, higher cognitive function, and language. He has a trace right seventh central facial paresis. He however does not demonstrate any lateralizing findings on his motor, sensory, or reflex examination. 4. Laboratory data on my initial evaluation revealed that he was anemic with a hemoglobin of 11.5 G. His latest BUN was 42 and latest creatinine is 2.3. When he came in his CK was 2257 and it had normalized to 241. He was folic acid deficient with a folic acid level of 7.5. His RPR was positive in a low titre of 1:1. The FTA-ABS is reactive. 5. The urine analysis performed today reveals 3+ leukocyte esterase, 5-10 red blood cells and too numerous to count white blood cells per high-power field. 6. The MRI scan of the brain performed on 08/05/2019 revealed multiple acute infarcts involving both cerebral hemispheres, basal ganglia, and the left cerebellum. In addition multiple old small infarcts scattered in the brain were also seen. 7. The MRI scan of the brain repeated on 08/12/2019 revealed multiple new acute infarctions in multiple different vascular territories. 8. A CT of the brain done today reveals atrophy, deep white matter changes and old infarcts but no acute pathology. 9. Prolonged cardiac monitoring has revealed no arrhythmia. 10. The patient's history, neurological examination, laboratory data, and imaging studies, most consistent with multiple showers of emboli to the brain over multiple different time periods. Leading to significant neurological dysfunction. 11. Patient also has a positive peripheral RPR and FTA-ABS. This is indicative of exposure to syphilis. Neurosyphilis should be excluded. 12. His recent decline in neurological function may be related to the acute urinary tract infection in addition to all the other problems that he has. He is brighter and better behaved today. Recommendations RECOMMENDATIONS: 1. Continue present management. 2. LESA tomorrow as planned. 3. Continue physical and occupational therapy to mobilize patient. 4. Aggressive treatment of acute infectious process. 5. Folic acid 1 mg daily for folate deficiency. 6. Observe closely. Beka Smith M.D., M.S.P.H. Neurologist & Clinical Neurophysiologist Beka Smith MD Aug 20, 2019 16:02
[2019-08-20 16:31] LABS: BASOPHILS % (AUTO) 2.4 % (0.0-2.0); EOSINOPHILS % (AUTO) 6.3 % (0.0-3.0); HEMATOCRIT 28.3 % (42.0-52.0); HEMOGLOBIN 9.6 G/DL (14.2-18.0); LYMPHOCYTES % (AUTO) 16.2 % (20.0-45.0); MEAN CORPUSCULAR VOLUME 92 FL (80-99); MONOCYTES % (AUTO) 9.2 % (1.0-10.0); NEUTROPHILS % (AUTO) 65.9 % (45.0-75.0); PLATELET COUNT 406 K/UL (150-450); RED BLOOD COUNT 3.07 M/UL (4.70-6.10); RED CELL DISTRIBUTION WIDTH 12.1 % (11.6-14.8); WHITE BLOOD COUNT 11.3 K/UL (4.8-10.8)
[2019-08-20 16:57] LABS: ALANINE AMINOTRANSFERASE 34 U/L (12-78); ALBUMIN/GLOBULIN RATIO 0.8 (1.0-2.7); ALKALINE PHOSPHATASE 66 U/L (46-116); ANION GAP 13 mmol/L (5-15); ASPARTATE AMINO TRANSFERASE 27 U/L (15-37); BILIRUBIN,TOTAL 0.8 MG/DL (0.2-1.0); BLOOD UREA NITROGEN 25 mg/dL (7-18); CALCIUM 8.5 MG/DL (8.5-10.1); CARBON DIOXIDE 22 MMOL/L (21-32); CHLORIDE 109 MMOL/L (98-107); CREATININE 1.8 MG/DL (0.55-1.30); POTASSIUM 3.7 MMOL/L (3.5-5.1); SODIUM 144 MMOL/L (136-145)
--- NOTE | 2019-08-20 18:18 | NUR ---
NURSE NOTES: Patient ate dinner,resting,ROM was provided ,IV fluids continues to infuse as ordered.Bed alarm on,soft wrist on,call light within reach.
--- NOTE | 2019-08-20 19:30 | NUR ---
HAND-OFF: Report given to Susan MCGEE.
--- NOTE | 2019-08-20 19:36 | NUR ---
NURSE NOTES: Patient in bed, awake and alert x2. No signs of distress or SOB. IV intact and running fluids. Walsh is in place and draining well. Bilateral soft wrist restraints in progress. Bed locked and in lowest position. Call light in reach. Will continue to monitor the patient.
--- NOTE | 2019-08-20 20:45 | Progress Note ---
DATE: 08/20/2019 SUBJECTIVE: The patient is on fourth floor. The patient is awaiting placement. He is in no acute distress, calm, not engaged during the evaluation. The patient is more alert, more verbal, able to answer the questions more appropriately, compliant with medication. MENTAL STATUS EXAMINATION: The patient is alert, oriented to self and place. Mood is neutral. Affect is flat. Thought process is concrete. Thought content, no suicidal or homicidal ideation. Cognition is improving. Insight and judgment is improving. ASSESSMENT: Acute encephalopathy, improving. PLAN: 1. We will continue low-dose of antipsychotics. 2. Provide the patient with reality orientation and supportive therapy. Nury Mandel M.D. DR: NABILA JOB#: [id number] CC:
[2019-08-21] MEDS: PENICILLIN POTASSIUM MU IVPB SCH ×6 (02:21→20:35)
[2019-08-21] MEDS: NS IVPB SCH ×6 (02:21→20:35)
[2019-08-21 04:00] VITALS: BP 120/77
[2019-08-21] MEDS: D5NS 1,000 ML IV SCH (04:00)
[2019-08-21] MEDS: HydrALAZINE 50mg tab ORAL SCH ×4 (05:41→22:18)
--- NOTE | 2019-08-21 07:19 | NUR ---
HAND-OFF: Report given to ARELY Cortez.
--- NOTE | 2019-08-21 07:24 | Cardiology Progress Note ---
Assessment/Plan Assessment/Plan at 7 am i came by to performe HANSA sched to 7 am pt does no have an iv and still not in gi lab at 7:25 ,to have iv started in gi lab aneshtesiaologsit dose not think will be able to start until after 7:35-7:40 and the gi lab staff indicated consent is not done appropriately no documentation in the progress note of medical necessity hansa cannot be performed today , the case is cancelled Objective Last 24 Hour Vital Signs Date Time Temp Pulse Resp B/P (MAP) Pulse Ox O2 Delivery O2 Flow Rate FiO2 08/21/19 05:41 120/77 08/21/19 04:00 97.6 86 17 120/77 (91) 97 08/20/19 23:59 98.2 88 17 130/69 (89) 97 08/20/19 22:12 122/69 08/20/19 20:00 97.8 82 17 122/69 (86) 96 08/20/19 19:57 Room Air 08/20/19 16:00 98.5 86 17 166/71 (102) 97 08/20/19 14:30 152/75 08/20/19 12:00 98.6 88 19 171/85 (113) 96 08/20/19 09:04 87 156/80 08/20/19 09:00 Room Air 08/20/19 08:00 98.1 87 19 175/75 (108) 98 Intake and Output 08/20/19 08/21/19 19:00 07:00 Intake Total 1185.0 ml 240 ml Output Total 1200 ml 550 ml Balance -15.0 ml -310 ml Intake Oral 360 ml 240 ml IV Total 825.0 ml Output Urine Total 1200 ml 550 ml Laboratory Tests Test 08/20/19 16:03 08/21/19 05:05 White Blood Count 11.3 K/UL (4.8-10.8) H Red Blood Count 3.07 M/UL (4.70-6.10) L Hemoglobin 9.6 G/DL (14.2-18.0) L Hematocrit 28.3 % (42.0-52.0) L Mean Corpuscular Volume 92 FL (80-99) Mean Corpuscular Hemoglobin 31.3 PG (27.0-31.0) H Mean Corpuscular Hemoglobin Concent 34.0 G/DL (32.0-36.0) Red Cell Distribution Width 12.1 % (11.6-14.8) Platelet Count 406 K/UL (150-450) Mean Platelet Volume 5.8 FL (6.5-10.1) L Neutrophils (%) (Auto) 65.9 % (45.0-75.0) Lymphocytes (%) (Auto) 16.2 % (20.0-45.0) L Monocytes (%) (Auto) 9.2 % (1.0-10.0) Eosinophils (%) (Auto) 6.3 % (0.0-3.0) H Basophils (%) (Auto) 2.4 % (0.0-2.0) H Sodium Level 144 MMOL/L (136-145) Pending Potassium Level 3.7 MMOL/L (3.5-5.1) Pending Chloride Level 109 MMOL/L (98-107) H Pending Carbon Dioxide Level 22 MMOL/L (21-32) Pending Anion Gap 13 mmol/L (5-15) Blood Urea Nitrogen 25 mg/dL (7-18) H Pending Creatinine 1.8 MG/DL (0.55-1.30) H Pending Estimat Glomerular Filtration Rate mL/min (>60) Pending Glucose Level 119 MG/DL (74-106) H Pending Calcium Level 8.5 MG/DL (8.5-10.1) Pending Total Bilirubin 0.8 MG/DL (0.2-1.0) Aspartate Amino Transf (AST/SGOT) 27 U/L (15-37) Alanine Aminotransferase (ALT/SGPT) 34 U/L (12-78) Alkaline Phosphatase 66 U/L (46-116) Total Protein 6.8 G/DL (6.4-8.2) Albumin 3.0 G/DL (3.4-5.0) L Globulin 3.8 g/dL Albumin/Globulin Ratio 0.8 (1.0-2.7) L To Virgen MD Aug 21, 2019 07:24
[2019-08-21 07:28] LABS: ANION GAP 14 mmol/L (5-15); BLOOD UREA NITROGEN 29 mg/dL (7-18); CARBON DIOXIDE 22 MMOL/L (21-32); CHLORIDE 108 MMOL/L (98-107); CREATININE 1.9 MG/DL (0.55-1.30); POTASSIUM 4.4 MMOL/L (3.5-5.1); SODIUM 144 MMOL/L (136-145)
--- NOTE | 2019-08-21 07:53 | NUR ---
CARDIOLOGY Cardiology staff and equipments were ready. GI staff and anesthesiologist were ready. But IV was bad and nurses could not get new IV. Dr. Virgen was waiting then left because he could not wait any longer. LESA was cancelled.
[2019-08-21 08:00] VITALS: BP 168/83
--- NOTE | 2019-08-21 08:14 | Urology Progress Note ---
Assessment/Plan Assessment/Plan: 1. Urinary retention. 2. BPH history. 3. Probable neurogenic bladder. 4. Renal insufficiency acute on chronic. 5. Hematuria. dickson remains indwelling for now, replaced 08/11 secured to pt's leg hand irrigated and do PRN cont with flomax, proscar urecholine dose increased minimize seroquel on abx repeat voiding trial later, once more alert and ambulatory cysto later Subjective Allergies: Coded Allergies: No Known Allergies (Unverified , 07/21/19) Subjective all noted, no new complaints, dickson indwelling Objective Last 24 Hour Vital Signs Date Time Temp Pulse Resp B/P (MAP) Pulse Ox O2 Delivery O2 Flow Rate FiO2 08/21/19 05:41 120/77 08/21/19 04:00 97.6 86 17 120/77 (91) 97 08/20/19 23:59 98.2 88 17 130/69 (89) 97 08/20/19 22:12 122/69 08/20/19 20:00 97.8 82 17 122/69 (86) 96 08/20/19 19:57 Room Air 08/20/19 16:00 98.5 86 17 166/71 (102) 97 08/20/19 14:30 152/75 08/20/19 12:00 98.6 88 19 171/85 (113) 96 08/20/19 09:04 87 156/80 08/20/19 09:00 Room Air Intake and Output 08/20/19 08/21/19 19:00 07:00 Intake Total 1185.0 ml 240 ml Output Total 1200 ml 550 ml Balance -15.0 ml -310 ml Intake Oral 360 ml 240 ml IV Total 825.0 ml Output Urine Total 1200 ml 550 ml Microbiology Date/Time Source Procedure Growth Status 08/13/19 09:25 Blood Blood Culture - Final NO GROWTH AFTER 5 DAYS Complete 07/21/19 17:35 Nasal Nares - Final Complete 07/21/19 17:35 Nasal Nares - Final Complete 08/13/19 11:10 Indwelling Cath Urine Culture - Final Morganella Morg Spp Morganii Complete Current Medications Medications (Trade) Dose Ordered Sig/Hanh Route PRN Reason Start Time Stop Time Status Last Admin Dose Admin Acetaminophen (Tylenol) 650 mg Q6H PRN ORAL Mild Pain/Temp > 100.5 08/16/19 03:30 09/12/19 15:22 08/20/19 01:14 Amlodipine Besylate (Norvasc) 10 mg DAILY ORAL 08/16/19 09:00 08/25/19 17:59 08/20/19 09:04 Bethanechol Chloride (Urecholine) 50 mg THREE TIMES A DAY ORAL 08/16/19 09:00 09/01/19 13:59 08/20/19 18:04 Bisacodyl (Dulcolax) 10 mg DAILYPRN PRN RECTAL Constipation 08/16/19 15:30 09/12/19 15:22 08/17/19 03:21 Clonidine HCl (Catapres TTS-3) 1 patch QWEEK TDERMAL 08/19/19 12:00 08/21/19 11:59 08/19/19 12:31 Clonidine HCl (Catapres tab) 0.2 mg Q2H PRN ORAL sbp>170 08/16/19 03:30 09/12/19 15:23 08/19/19 08:45 Dextrose/Sodium Chloride 1,000 ml @ 75 mls/hr [id number] IV 08/16/19 16:00 09/15/19 15:59 08/21/19 04:00 Finasteride (Proscar) 5 mg DAILY ORAL 08/16/19 09:00 08/27/19 08:59 08/20/19 08:58 Folic Acid (Folate) 1 mg DAILY ORAL 08/16/19 09:00 09/05/19 08:59 08/20/19 08:58 Haloperidol Lactate (Haldol) 2.5 mg Q6H PRN IM Agitation 08/16/19 06:15 09/14/19 12:14 08/19/19 20:27 Heparin Sodium (Porcine) (Heparin 5000 units/ml) 5,000 units EVERY 12 HOURS SUBQ 08/16/19 09:00 08/31/19 20:59 08/20/19 20:46 Hydralazine HCl (Apresoline) 100 mg Q8HR ORAL 08/16/19 14:00 09/15/19 13:59 08/21/19 05:41 Penicillin G Potassium 3 mu/ Sodium Chloride 55 ml @ 110 mls/hr Q4HR IVPB 08/19/19 17:00 08/29/19 16:59 08/21/19 04:04 Quetiapine Fumarate (SEROqueL) 25 mg Q6H PRN ORAL For Anxiety 08/16/19 03:30 09/12/19 15:23 Tamsulosin HCl (Flomax) 0.4 mg BID ORAL 08/16/19 09:00 08/26/19 17:59 08/20/19 18:02 Laboratory Tests 08/20/19 16:03: White Blood Count 11.3H, Red Blood Count 3.07L, Hemoglobin 9.6L, Hematocrit 28.3L, Mean Corpuscular Volume 92, Mean Corpuscular Hemoglobin 31.3H, Mean Corpuscular Hemoglobin Concent 34.0, Red Cell Distribution Width 12.1, Platelet Count 406, Mean Platelet Volume 5.8L, Neutrophils (%) (Auto) 65.9, Lymphocytes ( %) (Auto) 16.2L, Monocytes (%) (Auto) 9.2, Eosinophils (%) (Auto) 6.3H, Basophils (%) (Auto) 2.4H, Sodium Level 144, Potassium Level 3.7, Chloride Level 109H, Carbon Dioxide Level 22, Anion Gap 13, Blood Urea Nitrogen 25H, Creatinine 1.8H, Estimat Glomerular Filtration Rate , Glucose Level 119H, Calcium Level 8.5, Total Bilirubin 0.8, Aspartate Amino Transf (AST/SGOT) 27, Alanine Aminotransferase (ALT/SGPT) 34, Alkaline Phosphatase 66, Total Protein 6.8, Albumin 3.0L, Globulin 3.8, Albumin/Globulin Ratio 0.8L 08/21/19 05:05: Sodium Level 144, Potassium Level 4.4, Chloride Level 108H, Carbon Dioxide Level 22, Anion Gap 14, Blood Urea Nitrogen 29H, Creatinine 1.9H, Estimat Glomerular Filtration Rate , Glucose Level 108H, Calcium Level 9.0 Height (Feet): 5 Height (Inches): 5.00 Weight (Pounds): 176 Objective exam stable dickson indwelling BamshadKali MD Aug 21, 2019 08:14
--- NOTE | 2019-08-21 08:16 | NUR ---
NURSE NOTES: Patient awake and alert to name,respirations unlabored.Patient was NP0 for schedule procedure,patient IV out,IV was attempted by the third shift lieutenant but unable to start IV,will attempt to restart and notify Doctor regarding Npo staus,or will procedure be reschedule patient has bilateral wrist restraint,will provide RACHEAL and skin care.Walsh catheter is in place and draining clear fanny color urine.Bed alarm on,call light within reach.
--- NOTE | 2019-08-21 09:55 | Pulmonology Progress Note ---
Assessment/Plan Problems: (1) Rhabdomyolysis (2) JERMAINE (acute kidney injury) (3) Dehydration (4) Episode of generalized weakness (5) Weakness (6) Gait abnormality (7) Failure to thrive in adult (8) Hypertension, benign (9) Toxic metabolic encephalopathy (10) Bacteremia due to Staphylococcus (11) Positive RPR test (12) CVA (cerebral vascular accident) (13) Syphilis Assessment/Plan Assessment/Plan 1. Acute and chronic CVA, likely embolic 2. AMS, 2/2 above 3. 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 Dehydration/rhabdomyolysis/lactic acidosis - RESOLVED 5. Hyperproteinemia, possible myeloma 6. Hypertension - POORLY CONTROLLED 7. JERMAINE vs CKD, likely both 8. Obstructive uropathy 9. Generalized weakness 10. Anemia, FOBT neg PLAN: LESA NEEDS TO BE DONE! - WILL F/U WITH CARDIOLOGY DIVISION AND NURSING Abx per ID: PCN G Per IR unable to do LP QT ok, Haldol 2.5 q6 PRN IM, Seroquel PO if able BP control PT/OT DVT Px: Hep SQ Dispo planning to SNF once acute issues resolved Subjective Allergies: Coded Allergies: No Known Allergies (Unverified , 07/21/19) Subjective LESA not done 2/2 no IV! NAEO More alert No F/C/CP/SOB Objective Last 24 Hour Vital Signs Date Time Temp Pulse Resp B/P (MAP) Pulse Ox O2 Delivery O2 Flow Rate FiO2 08/21/19 05:41 120/77 08/21/19 04:00 97.6 86 17 120/77 (91) 97 08/20/19 23:59 98.2 88 17 130/69 (89) 97 08/20/19 22:12 122/69 08/20/19 20:00 97.8 82 17 122/69 (86) 96 08/20/19 19:57 Room Air 08/20/19 16:00 98.5 86 17 166/71 (102) 97 08/20/19 14:30 152/75 08/20/19 12:00 98.6 88 19 171/85 (113) 96 Intake and Output 08/20/19 08/21/19 19:00 07:00 Intake Total 1185.0 ml 240 ml Output Total 1200 ml 550 ml Balance -15.0 ml -310 ml Intake Oral 360 ml 240 ml IV Total 825.0 ml Output Urine Total 1200 ml 550 ml General Appearance: no acute distress, cachetic HEENT: normocephalic, atraumatic, anicteric, mucous membranes moist Respiratory/Chest: chest wall non-tender, lungs clear, normal breath sounds, no respiratory distress, no accessory muscle use Cardiovascular: normal peripheral pulses, normal rate, regular rhythm Abdomen: normal bowel sounds, soft, non tender, no organomegaly, non distended , no mass Extremities: no cyanosis, no clubbing, no edema Laboratory Tests 08/20/19 16:03: White Blood Count 11.3H, Red Blood Count 3.07L, Hemoglobin 9.6L, Hematocrit 28.3L, Mean Corpuscular Volume 92, Mean Corpuscular Hemoglobin 31.3H, Mean Corpuscular Hemoglobin Concent 34.0, Red Cell Distribution Width 12.1, Platelet Count 406, Mean Platelet Volume 5.8L, Neutrophils (%) (Auto) 65.9, Lymphocytes ( %) (Auto) 16.2L, Monocytes (%) (Auto) 9.2, Eosinophils (%) (Auto) 6.3H, Basophils (%) (Auto) 2.4H, Sodium Level 144, Potassium Level 3.7, Chloride Level 109H, Carbon Dioxide Level 22, Anion Gap 13, Blood Urea Nitrogen 25H, Creatinine 1.8H, Estimat Glomerular Filtration Rate , Glucose Level 119H, Calcium Level 8.5, Total Bilirubin 0.8, Aspartate Amino Transf (AST/SGOT) 27, Alanine Aminotransferase (ALT/SGPT) 34, Alkaline Phosphatase 66, Total Protein 6.8, Albumin 3.0L, Globulin 3.8, Albumin/Globulin Ratio 0.8L 08/21/19 05:05: Sodium Level 144, Potassium Level 4.4, Chloride Level 108H, Carbon Dioxide Level 22, Anion Gap 14, Blood Urea Nitrogen 29H, Creatinine 1.9H, Estimat Glomerular Filtration Rate , Glucose Level 108H, Calcium Level 9.0 Current Medications Medications (Trade) Dose Ordered Sig/Hanh Route PRN Reason Start Time Stop Time Status Last Admin Dose Admin Acetaminophen (Tylenol) 650 mg Q6H PRN ORAL Mild Pain/Temp > 100.5 08/16/19 03:30 09/12/19 15:22 08/20/19 01:14 Amlodipine Besylate (Norvasc) 10 mg DAILY ORAL 08/16/19 09:00 08/25/19 17:59 08/20/19 09:04 Bethanechol Chloride (Urecholine) 50 mg THREE TIMES A DAY ORAL 08/16/19 09:00 09/01/19 13:59 08/20/19 18:04 Bisacodyl (Dulcolax) 10 mg DAILYPRN PRN RECTAL Constipation 08/16/19 15:30 09/12/19 15:22 08/17/19 03:21 Clonidine HCl (Catapres TTS-3) 1 patch QWEEK TDERMAL 08/19/19 12:00 08/21/19 11:59 08/19/19 12:31 Clonidine HCl (Catapres tab) 0.2 mg Q2H PRN ORAL sbp>170 08/16/19 03:30 09/12/19 15:23 08/19/19 08:45 Dextrose/Sodium Chloride 1,000 ml @ 75 mls/hr [id number] IV 08/16/19 16:00 09/15/19 15:59 08/21/19 04:00 Finasteride (Proscar) 5 mg DAILY ORAL 08/16/19 09:00 08/27/19 08:59 08/20/19 08:58 Folic Acid (Folate) 1 mg DAILY ORAL 08/16/19 09:00 09/05/19 08:59 08/20/19 08:58 Haloperidol Lactate (Haldol) 2.5 mg Q6H PRN IM Agitation 08/16/19 06:15 09/14/19 12:14 08/19/19 20:27 Heparin Sodium (Porcine) (Heparin 5000 units/ml) 5,000 units EVERY 12 HOURS SUBQ 08/16/19 09:00 08/31/19 20:59 08/20/19 20:46 Hydralazine HCl (Apresoline) 100 mg Q8HR ORAL 08/16/19 14:00 09/15/19 13:59 08/21/19 05:41 Penicillin G Potassium 3 mu/ Sodium Chloride 55 ml @ 110 mls/hr Q4HR IVPB 08/19/19 17:00 08/29/19 16:59 08/21/19 09:17 Quetiapine Fumarate (SEROqueL) 25 mg Q6H PRN ORAL For Anxiety 08/16/19 03:30 09/12/19 15:23 Tamsulosin HCl (Flomax) 0.4 mg BID ORAL 08/16/19 09:00 08/26/19 17:59 08/20/19 18:02 Shiraz Cervantes MD Aug 21, 2019 09:55
--- NOTE | 2019-08-21 10:31 | NUR ---
NURSING PSYCHIATRIC CLINICAL NURSE SPECIALIST NOTE: Received notification from [facility] charge nurse, Mary that she is having difficulty reaching Dr. Cervantes. I left message on Office/Cell Phone (both are same phone number on MD Roster) asking Dr. Cervantes to call [facility]
[2019-08-21] MEDS: Bethanechol 25mg Tab ORAL SCH ×3 (10:32→19:20)
[2019-08-21] MEDS: Tamsulosin 0.4mg cap ORAL SCH ×2 (10:33→19:20)
[2019-08-21] MEDS: Heparin 5000 units/ml inj SUBQ SCH ×2 (10:40→20:37)
--- NOTE | 2019-08-21 10:50 | Nephrology Progress Note ---
Assessment/Plan Assessment/Plan: A/P 1) Hypertension, benign - stable at goal (2) Sepsis- Abx per ID (3) CKD 4- Cr down to 1.9 (4) Dehydration- resolved. IVFs stopped (5) Urinary retention- per Urology, dickson Subjective Date patient seen: Aug 21, 2019 Time patient seen: 10:48 ROS Limited/Unobtainable: No Allergies: Coded Allergies: No Known Allergies (Unverified , 07/21/19) Subjective Patient with no compalints Objective Last 24 Hour Vital Signs Date Time Temp Pulse Resp B/P (MAP) Pulse Ox O2 Delivery O2 Flow Rate FiO2 08/21/19 05:41 120/77 08/21/19 04:00 97.6 86 17 120/77 (91) 97 08/20/19 23:59 98.2 88 17 130/69 (89) 97 08/20/19 22:12 122/69 08/20/19 20:00 97.8 82 17 122/69 (86) 96 08/20/19 19:57 Room Air 08/20/19 16:00 98.5 86 17 166/71 (102) 97 08/20/19 14:30 152/75 08/20/19 12:00 98.6 88 19 171/85 (113) 96 Intake and Output 08/20/19 08/21/19 19:00 07:00 Intake Total 1185.0 ml 240 ml Output Total 1200 ml 550 ml Balance -15.0 ml -310 ml Intake Oral 360 ml 240 ml IV Total 825.0 ml Output Urine Total 1200 ml 550 ml Laboratory Tests 08/20/19 16:03: White Blood Count 11.3H, Red Blood Count 3.07L, Hemoglobin 9.6L, Hematocrit 28.3L, Mean Corpuscular Volume 92, Mean Corpuscular Hemoglobin 31.3H, Mean Corpuscular Hemoglobin Concent 34.0, Red Cell Distribution Width 12.1, Platelet Count 406, Mean Platelet Volume 5.8L, Neutrophils (%) (Auto) 65.9, Lymphocytes ( %) (Auto) 16.2L, Monocytes (%) (Auto) 9.2, Eosinophils (%) (Auto) 6.3H, Basophils (%) (Auto) 2.4H, Sodium Level 144, Potassium Level 3.7, Chloride Level 109H, Carbon Dioxide Level 22, Anion Gap 13, Blood Urea Nitrogen 25H, Creatinine 1.8H, Estimat Glomerular Filtration Rate , Glucose Level 119H, Calcium Level 8.5, Total Bilirubin 0.8, Aspartate Amino Transf (AST/SGOT) 27, Alanine Aminotransferase (ALT/SGPT) 34, Alkaline Phosphatase 66, Total Protein 6.8, Albumin 3.0L, Globulin 3.8, Albumin/Globulin Ratio 0.8L 08/21/19 05:05: Sodium Level 144, Potassium Level 4.4, Chloride Level 108H, Carbon Dioxide Level 22, Anion Gap 14, Blood Urea Nitrogen 29H, Creatinine 1.9H, Estimat Glomerular Filtration Rate , Glucose Level 108H, Calcium Level 9.0 Height (Feet): 5 Height (Inches): 5.00 Weight (Pounds): 176 General Appearance: no apparent distress, alert EENT: normal ENT inspection Neck: normal alignment, supple Cardiovascular: normal rate, regular rhythm Respiratory/Chest: lungs clear, normal breath sounds Abdomen: non tender, soft Edema: no edema noted Arm (L), no edema noted Arm (R), no edema noted Leg (L), no edema noted Leg (R), no edema noted Pedal (L), no edema noted Pedal (R), no edema noted Generalized Luan Oneill MD Aug 21, 2019 10:50
[2019-08-21 12:00] VITALS: BP 167/78
--- NOTE | 2019-08-21 12:08 | NUR ---
RD ASSESSMENT & RECOMMENDATIONS SEE CARE ACTIVITY FOR COMPLETE ASSESSMENT DAILY ESTIMATED NEEDS: Needs based on cardiac, 69kg abw 25-30 kcals/kg 4924-5240 total kcals 1-1.2 g protein/kg 69-83 g total protein 25-30 mL/kg 8224-6903 total fluid mLs NUTRITION DIAGNOSIS: Altered nutrition related lab values R/T dehydration, HTN, clinical condition as evidenced by elev creat (1.9), elev T bili (1.1 -> wnl), elev BPs (220/110 -> now improved), low K (3.3 -> wnl), elev total creatine kinase (2240 ->440-> now wnl). CURRENT DIET:REGULAR, soft easy chew PO DIET RECOMMENDATIONS: LOW NA/ texture as tolerated ADDITIONAL RECOMMENDATIONS: * Calibrated bedscale wt * Monitor lytes, replete as needed * Monitor for bowel movement -> consider bowel regimen * Monitor PO intake- variable at this time * Ensure Enlive BID w/ meals w/ variable intake * MVI x 1 as supplement
[2019-08-21] MEDS ORDERED: Lidocaine 1% Plain 30 ml INJ PRN (13:30)
[2019-08-21] MEDS ORDERED: Heparin1,000 units/500ml Premix(Conc:2 units/ml) IV PRN (13:30)
--- NOTE | 2019-08-21 14:00 | NUR ---
DISCHARGE PLANNED: PATIENT REFERRED TO [facility] FOR LESA SPOKE TO [facility] FROM [facility] TRANSFER [facility] PATIENT IS NOT YET ON TRANSFER LIST [facility] STATED PATIENT WILL NOT GET TRANSFERRED FOR THREE DAYS OR MORE DUE TO CURRENT HIGH VOLUME
--- NOTE | 2019-08-21 14:39 | Infectious Diseases Prog Note ---
Assessment/Plan Problems: (1) Leukocytosis Assessment & Plan: will send blood culture and repeat labs , monitor clinically (2) Fever Assessment & Plan: resolved , source suspect CAUTI with morganella morganii , received zosyn for 6 days , CXR was negative for any infiltrates, blood culture x2 was negative , now on penicillin G iv for 10 DAYS to cover for possible neurosyphillis (3) Positive RPR test Assessment & Plan: with low titer and reactive FTA-ABS , rule out neurosyphilis , LP was NOT done since he was altered as per radiologist . TPPA serum is pending . screening for HIV is negative . 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 repeated blood cultures so far have been negative, with negative JOHN, and RF screening , recommend LESA to better evaluate his valves . doesn't meet criteria for infectious endocarditis. on Penicillin to treat for possible neurosyphillis (5) CKD (chronic kidney disease) stage 3, GFR 30-59 ml/min Assessment & Plan: avoid nephrotoxics, close monitoring of renal function, follow up with nephrology (6) Failure to thrive in adult Assessment & Plan: etiology? dementia possibly, screening for HIV is negative , may need placement (7) Encephalopathy acute Assessment & Plan: improving now, suspect recurrent CVA, VS meds side effect , VS metabolic. already on antibiotics to cover for possible neurosyphillis . neurology is following (8) Urinary retention Assessment & Plan: S/P dickson catheter placement , urology is following Subjective Constitutional: Reports: no symptoms HEENT: Reports: no symptoms Respiratory: Reports: no symptoms Breasts: Reports: no symptoms Cardiovascular: Reports: no symptoms Gastrointestinal/Abdominal: Reports: no symptoms Genitourinary: Reports: no symptoms Neurologic: Reports: weakness, confusion Psychiatric: Reports: anxiety Skin: Reports: no symptoms Endocrine: Reports: no symptoms Hematologic: Reports: no symptoms Musculoskeletal: Reports: no symptoms Allergies: Coded Allergies: No Known Allergies (Unverified , 07/21/19) Subjective He awake and alert but confused trying to get out of bed , no cough or SOB, no nausea or vomiting , no diarrhea , had Dickson catheter placed in on 08/11/19 , with cloudy urine in it Objective Vital Signs Last 24 Hour Vital Signs Date Time Temp Pulse Resp B/P (MAP) Pulse Ox O2 Delivery O2 Flow Rate FiO2 08/21/19 12:00 98.3 88 17 167/78 (107) 100 08/21/19 10:38 88 167/78 08/21/19 09:00 Room Air 08/21/19 08:00 98.8 94 17 168/83 (111) 100 08/21/19 05:41 120/77 08/21/19 04:00 97.6 86 17 120/77 (91) 97 08/20/19 23:59 98.2 88 17 130/69 (89) 97 08/20/19 22:12 122/69 08/20/19 20:00 97.8 82 17 122/69 (86) 96 08/20/19 19:57 Room Air 08/20/19 16:00 98.5 86 17 166/71 (102) 97 Height (Feet): 5 Height (Inches): 5.00 Weight (Pounds): 176 General Appearance: WD/WN, no acute distress HEENT: normocephalic, atraumatic, anicteric, mucous membranes moist, PERRL Respiratory/Chest: chest wall non-tender, lungs clear, normal breath sounds, no respiratory distress, no accessory muscle use Cardiovascular: normal peripheral pulses, normal rate, regular rhythm, no gallop/murmur, no JVD Abdomen: normal bowel sounds, soft, non tender, no organomegaly, non distended , no mass, no scars Extremities: no cyanosis, no clubbing Skin: no rash, no lesions, no ulcers Neurologic/Psychiatric: 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 grossly normal, alert, responsive, other - confused Lymphatic: no neck adenopathy, no groin adenopathy Musculoskeletal: normal muscle bulk, no effusion Laboratory Tests Test 08/20/19 16:03 08/21/19 05:05 White Blood Count 11.3 K/UL (4.8-10.8) H Red Blood Count 3.07 M/UL (4.70-6.10) L Hemoglobin 9.6 G/DL (14.2-18.0) L Hematocrit 28.3 % (42.0-52.0) L Mean Corpuscular Volume 92 FL (80-99) Mean Corpuscular Hemoglobin 31.3 PG (27.0-31.0) H Mean Corpuscular Hemoglobin Concent 34.0 G/DL (32.0-36.0) Red Cell Distribution Width 12.1 % (11.6-14.8) Platelet Count 406 K/UL (150-450) Mean Platelet Volume 5.8 FL (6.5-10.1) L Neutrophils (%) (Auto) 65.9 % (45.0-75.0) Lymphocytes (%) (Auto) 16.2 % (20.0-45.0) L Monocytes (%) (Auto) 9.2 % (1.0-10.0) Eosinophils (%) (Auto) 6.3 % (0.0-3.0) H Basophils (%) (Auto) 2.4 % (0.0-2.0) H Sodium Level 144 MMOL/L (136-145) 144 MMOL/L (136-145) Potassium Level 3.7 MMOL/L (3.5-5.1) 4.4 MMOL/L (3.5-5.1) Chloride Level 109 MMOL/L (98-107) H 108 MMOL/L (98-107) H Carbon Dioxide Level 22 MMOL/L (21-32) 22 MMOL/L (21-32) Anion Gap 13 mmol/L (5-15) 14 mmol/L (5-15) Blood Urea Nitrogen 25 mg/dL (7-18) H 29 mg/dL (7-18) H Creatinine 1.8 MG/DL (0.55-1.30) H 1.9 MG/DL (0.55-1.30) H Estimat Glomerular Filtration Rate mL/min (>60) mL/min (>60) Glucose Level 119 MG/DL (74-106) H 108 MG/DL (74-106) H Calcium Level 8.5 MG/DL (8.5-10.1) 9.0 MG/DL (8.5-10.1) Total Bilirubin 0.8 MG/DL (0.2-1.0) Aspartate Amino Transf (AST/SGOT) 27 U/L (15-37) Alanine Aminotransferase (ALT/SGPT) 34 U/L (12-78) Alkaline Phosphatase 66 U/L (46-116) Total Protein 6.8 G/DL (6.4-8.2) Albumin 3.0 G/DL (3.4-5.0) L Globulin 3.8 g/dL Albumin/Globulin Ratio 0.8 (1.0-2.7) L Current Medications Medications (Trade) Dose Ordered Sig/Hanh Route PRN Reason Start Time Stop Time Status Last Admin Dose Admin Acetaminophen (Tylenol) 650 mg Q6H PRN ORAL Mild Pain/Temp > 100.5 08/16/19 03:30 09/12/19 15:22 08/20/19 01:14 Amlodipine Besylate (Norvasc) 10 mg DAILY ORAL 08/16/19 09:00 08/25/19 17:59 08/21/19 10:38 Bethanechol Chloride (Urecholine) 50 mg THREE TIMES A DAY ORAL 08/16/19 09:00 09/01/19 13:59 08/21/19 10:32 Bisacodyl (Dulcolax) 10 mg DAILYPRN PRN RECTAL Constipation 08/16/19 15:30 09/12/19 15:22 08/17/19 03:21 Chlorhexidine Gluconate (Caity-Hex 2%) 1 applic DAILY@2000 TOPIC 08/21/19 20:00 09/20/19 19:59 Clonidine HCl (Catapres tab) 0.2 mg Q2H PRN ORAL sbp>170 08/16/19 03:30 09/12/19 15:23 08/19/19 08:45 Finasteride (Proscar) 5 mg DAILY ORAL 08/16/19 09:00 08/27/19 08:59 08/21/19 10:33 Folic Acid (Folate) 1 mg DAILY ORAL 08/16/19 09:00 09/05/19 08:59 08/21/19 10:33 Haloperidol Lactate (Haldol) 2.5 mg Q6H PRN IM Agitation 08/16/19 06:15 09/14/19 12:14 08/19/19 20:27 Heparin Sodium (Porcine) (Heparin 5000 units/ml) 5,000 units EVERY 12 HOURS SUBQ 08/16/19 09:00 08/31/19 20:59 08/21/19 10:40 Heparin Sodium/ Sodium Chloride (Heparin 1000 units/500ml Premix) 1,000 unit ONCE PRN IV PICC LINE 08/21/19 13:30 08/23/19 13:29 Hydralazine HCl (Apresoline) 100 mg Q8HR ORAL 08/16/19 14:00 09/15/19 13:59 08/21/19 05:41 Lidocaine HCl (Xylocaine 1% 30ml) 30 ml ONCE PRN INJ PICC LINE 08/21/19 13:30 08/23/19 13:29 Penicillin G Potassium 3 mu/ Sodium Chloride 55 ml @ 110 mls/hr Q4HR IVPB 08/19/19 17:00 08/29/19 16:59 08/21/19 09:17 Quetiapine Fumarate (SEROqueL) 25 mg Q6H PRN ORAL For Anxiety 08/16/19 03:30 09/12/19 15:23 Tamsulosin HCl (Flomax) 0.4 mg BID ORAL 08/16/19 09:00 08/26/19 17:59 08/21/19 10:33 Anastasia Lion M.D. Aug 21, 2019 14:39
--- NOTE | 2019-08-21 15:10 | Cardiac Electrophysiology PN ---
Assessment/Plan Status Narrative MRI Brain: Multiple foci of restricted diffusion, as described. Most of these were evident on prior study of 08/05/2019, indicating that these are residual subacute infarcts. However, there are a few new areas as detailed above, indicating lacunar infarcts that have occurred since the previous study Assessment/Plan 1. 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 EF 60%. LESA couldn't be done. Off anticoagulation to prevent hemorrhagic conversion of CVA until cleared by Neurology. Remained in SR while on tele. Awaiting transfer to [facility] for LESA. 2. Hypertension. On Norvasc 10 mg daily, Hydralazine 100 q8, clonidine patch weekly and p.r.n. clonidine 3. Benign prostatic hypertrophy on Flomax and Proscar. 4. Dementia, on Seroquel per Dr. Mandel. 5. Acute rhabdomyolysis. 6. Staph bacteremia.On Abx 7. Stage 3 chronic kidney disease. 8. AMS. ?due to CVA. FU Dr Sarah CARTER RN and Dr Cervantes Subjective Subjective Alert in NAD. LESA couldn't be today by Dr. Virgen as patient had no IV access. Transfer to [facility] now pending for LESA Objective Last 24 Hour Vital Signs Date Time Temp Pulse Resp B/P (MAP) Pulse Ox O2 Delivery O2 Flow Rate FiO2 08/21/19 12:00 98.3 88 17 167/78 (107) 100 08/21/19 10:38 88 167/78 08/21/19 09:00 Room Air 08/21/19 08:00 98.8 94 17 168/83 (111) 100 08/21/19 05:41 120/77 08/21/19 04:00 97.6 86 17 120/77 (91) 97 08/20/19 23:59 98.2 88 17 130/69 (89) 97 08/20/19 22:12 122/69 08/20/19 20:00 97.8 82 17 122/69 (86) 96 08/20/19 19:57 Room Air 08/20/19 16:00 98.5 86 17 166/71 (102) 97 Intake and Output 08/20/19 08/21/19 19:00 07:00 Intake Total 1185.0 ml 240 ml Output Total 1200 ml 550 ml Balance -15.0 ml -310 ml Intake Oral 360 ml 240 ml IV Total 825.0 ml Output Urine Total 1200 ml 550 ml Laboratory Tests Test 08/20/19 16:03 08/21/19 05:05 White Blood Count 11.3 K/UL (4.8-10.8) H Red Blood Count 3.07 M/UL (4.70-6.10) L Hemoglobin 9.6 G/DL (14.2-18.0) L Hematocrit 28.3 % (42.0-52.0) L Mean Corpuscular Volume 92 FL (80-99) Mean Corpuscular Hemoglobin 31.3 PG (27.0-31.0) H Mean Corpuscular Hemoglobin Concent 34.0 G/DL (32.0-36.0) Red Cell Distribution Width 12.1 % (11.6-14.8) Platelet Count 406 K/UL (150-450) Mean Platelet Volume 5.8 FL (6.5-10.1) L Neutrophils (%) (Auto) 65.9 % (45.0-75.0) Lymphocytes (%) (Auto) 16.2 % (20.0-45.0) L Monocytes (%) (Auto) 9.2 % (1.0-10.0) Eosinophils (%) (Auto) 6.3 % (0.0-3.0) H Basophils (%) (Auto) 2.4 % (0.0-2.0) H Sodium Level 144 MMOL/L (136-145) 144 MMOL/L (136-145) Potassium Level 3.7 MMOL/L (3.5-5.1) 4.4 MMOL/L (3.5-5.1) Chloride Level 109 MMOL/L (98-107) H 108 MMOL/L (98-107) H Carbon Dioxide Level 22 MMOL/L (21-32) 22 MMOL/L (21-32) Anion Gap 13 mmol/L (5-15) 14 mmol/L (5-15) Blood Urea Nitrogen 25 mg/dL (7-18) H 29 mg/dL (7-18) H Creatinine 1.8 MG/DL (0.55-1.30) H 1.9 MG/DL (0.55-1.30) H Estimat Glomerular Filtration Rate mL/min (>60) mL/min (>60) Glucose Level 119 MG/DL (74-106) H 108 MG/DL (74-106) H Calcium Level 8.5 MG/DL (8.5-10.1) 9.0 MG/DL (8.5-10.1) Total Bilirubin 0.8 MG/DL (0.2-1.0) Aspartate Amino Transf (AST/SGOT) 27 U/L (15-37) Alanine Aminotransferase (ALT/SGPT) 34 U/L (12-78) Alkaline Phosphatase 66 U/L (46-116) Total Protein 6.8 G/DL (6.4-8.2) Albumin 3.0 G/DL (3.4-5.0) L Globulin 3.8 g/dL Albumin/Globulin Ratio 0.8 (1.0-2.7) L Objective HEAD AND NECK: No JVD. LUNGS: Clear. CARDIOVASCULAR: Regular S1 and S2 with no gallop or murmur. ABDOMEN: Soft and nontender. EXTREMITIES: No pitting edema. Lance Nichols MD Aug 21, 2019 15:10
--- NOTE | 2019-08-21 15:20 | NUR ---
NURSE NOTES: IV was restarted this am ,IV out .special came up to attempt tr start IV but unable to .Patient has order for picc line placement.will notify DR of IV antibiotics unable to give at this time.
[2019-08-21 16:00] VITALS: BP 164/86
--- NOTE | 2019-08-21 18:00 | NUR ---
NURSE NOTES: Patient had soft brown,skin care given .Dr Lion aware that patient has no IV aware unable to give antibiotic . No new orders. Soft wrist restraints on,ROM given throughout the day.Bed alarm is on,call light within reach.
--- NOTE | 2019-08-21 19:40 | NUR ---
HAND-OFF: Report given to Zeny MCGEE.
--- NOTE | 2019-08-21 19:53 | NUR ---
NURSE NOTES: Received patient in bed, asleep, no acute distress noted, bilateral wrist restraints are on, patient will be monitored for comfort and safety. No IV MD is aware, patient is scheduled for PICC line placement. Call light is within reach, bed is lowered, locked, alarm is on.
[2019-08-21 20:00] VITALS: BP 170/74
--- NOTE | 2019-08-21 20:05 | Neurology Progress Note ---
Interim History Interim History Interim History Mr. Reji Au is a 79-year-old, right-handed, black gentleman, who has a relatively benign past history. He was brought to the hospital on 07/21/2019 after he had apparently fallen down and was on the floor of his apartment for 4 days. He himself has no recollection of what happened. Since he has been here he has been noted to have some gait problems. He continues to be bright and communicative. He follows commands well. His urinary tract infection is being treated appropriately. His LESA could not be performed today as planned because he was unable to get an IV line placed. Objective Physical Exam Last Vital Signs Date Time Temp Pulse Resp B/P (MAP) Pulse Ox O2 Delivery O2 Flow Rate FiO2 08/21/19 16:00 98.5 68 17 164/86 (112) 98 08/21/19 09:00 Room Air Laboratory Tests Test 08/21/19 05:05 Sodium Level 144 MMOL/L (136-145) Potassium Level 4.4 MMOL/L (3.5-5.1) Chloride Level 108 MMOL/L (98-107) H Carbon Dioxide Level 22 MMOL/L (21-32) Anion Gap 14 mmol/L (5-15) Blood Urea Nitrogen 29 mg/dL (7-18) H Creatinine 1.9 MG/DL (0.55-1.30) H Estimat Glomerular Filtration Rate mL/min (>60) Glucose Level 108 MG/DL (74-106) H Calcium Level 9.0 MG/DL (8.5-10.1) Neurologic Exam Objective PHYSICAL EXAMINATION: GENERAL: He is a well-developed, relatively well-nourished, Black gentleman, lying in bed in no acute distress. HEAD: Normocephalic and atraumatic. NECK: No neck rigidity was observed. EENT examination: Benign. NEUROLOGICAL EXAMINATION: Mental status examination: He was awake and alert. He was oriented to self, OM and July only. He was able to recall 3/3 words immediately but could not remember them after 1 and 3 minutes. He was able to remember presidents Trump and Obama only when first names were given to him. His mathematical skills were impaired. His visuospatial function was also impaired. Frontal systems tasks: He was unable to perform Luria's hand sequences. Speech: He had no dysarthria. Language: He was able to comprehend and express himself. Cranial nerve examination: II: The visual kang were intact on confrontation. III, IV & : The external ocular movements were full. The pupils were 3 mm in diameter and reactive sluggishly to light. V-VII: The corneal reflexes were equal bilaterally. He had a trace right seventh central facial paresis. VIII: He was able to hear and had no nystagmus. IX: The palate moved symmetrically on phonation. X: He had no hoarseness of voice. XI: The sternocleidomastoids and trapezii functioned. XII: The tongue was in the midline. Motor system: The tone was normal in all 4 extremities. Examination of muscle mass revealed no focal wasting. Examination of power was impossible to perform accurately however he moved all 4 extremities on command and gave me good hand sound assistant bilaterally. Sensory examination: He was able to localize light touch. Reflexes: 2+ and bilaterally symmetrical at the biceps, triceps, brachioradialis and knees. 0 at both ankles. The plantar responses were flexor. Coordination: He performed well on [id number] testing. Stance: Deferred. Gait: Deferred. Impression/Recommendations Diagnostic Impression DIAGNOSTIC IMPRESSION: 1. Mr. Reji Au is a 79-year-old, right-handed, black gentleman, who has a relatively benign past history. He was brought to the hospital on 07/21/2019 after he had apparently fallen down and was on the floor of his apartment for 4 days. He himself has no recollection of what happened. Since he has been here he has been noted to have some gait problems. 2. He continues to be bright and communicative. He follows commands well. His urinary tract infection is being treated appropriately. His LESA could not be performed today as planned because he was unable to get an IV line placed. 3. On neurological examination, at this time, he is awake and alert. He is oriented to self, [facility] and July only. He does have significant problems with recent and remote memory, visuospatial function, higher cognitive function, and language. He has a trace right seventh central facial paresis. He however does not demonstrate any lateralizing findings on his motor, sensory, or reflex examination. 4. Laboratory data on my initial evaluation revealed that he was anemic with a hemoglobin of 11.5 G. His latest BUN was 42 and latest creatinine is 2.3. When he came in his CK was 2257 and it had normalized to 241. He was folic acid deficient with a folic acid level of 7.5. His RPR was positive in a low titre of 1:1. The FTA-ABS is reactive. 5. The urine analysis performed today reveals 3+ leukocyte esterase, 5-10 red blood cells and too numerous to count white blood cells per high-power field. 6. The MRI scan of the brain performed on 08/05/2019 revealed multiple acute infarcts involving both cerebral hemispheres, basal ganglia, and the left cerebellum. In addition multiple old small infarcts scattered in the brain were also seen. 7. The MRI scan of the brain repeated on 08/12/2019 revealed multiple new acute infarctions in multiple different vascular territories. 8. A CT of the brain done today reveals atrophy, deep white matter changes and old infarcts but no acute pathology. 9. Prolonged cardiac monitoring has revealed no arrhythmia. 10. The patient's history, neurological examination, laboratory data, and imaging studies, most consistent with multiple showers of emboli to the brain over multiple different time periods. Leading to significant neurological dysfunction. 11. Patient also has a positive peripheral RPR and FTA-ABS. This is indicative of exposure to syphilis. Neurosyphilis could not be excluded as a LP could not be performed. However he is being treated for it. 12. His recent decline in neurological function may be related to the acute urinary tract infection in addition to all the other problems that he has. He is brighter and better behaved today. Recommendations RECOMMENDATIONS: 1. Continue present management. 2. LESA - whenever! 3. Continue physical and occupational therapy to mobilize patient. 4. Aggressive treatment of acute infectious process. 5. Folic acid 1 mg daily for folate deficiency. 6. Observe closely. Beka Smith M.D., M.S.P.H. Neurologist & Clinical Neurophysiologist Beka Smith MD Aug 21, 2019 20:05
[2019-08-21] MEDS: Dyna-Hex 2% Top Sol 2oz TOPIC SCH (20:37)
[2019-08-22] VITALS: BP 150/74
[2019-08-22] MEDS: PENICILLIN POTASSIUM MU IVPB SCH ×6 (00:30→21:54)
[2019-08-22] MEDS: NS IVPB SCH ×6 (00:30→21:54)
[2019-08-22 04:00] VITALS: BP 150/63
[2019-08-22] MEDS: HydrALAZINE 50mg tab ORAL SCH ×3 (05:43→21:54)
[2019-08-22 06:42] LABS: BASOPHILS % (AUTO) 1.2 % (0.0-2.0); EOSINOPHILS % (AUTO) 2.9 % (0.0-3.0); HEMATOCRIT 29.9 % (42.0-52.0); HEMOGLOBIN 10.5 G/DL (14.2-18.0); LYMPHOCYTES % (AUTO) 15.7 % (20.0-45.0); MEAN CORPUSCULAR VOLUME 92 FL (80-99); MONOCYTES % (AUTO) 9.7 % (1.0-10.0); NEUTROPHILS % (AUTO) 70.6 % (45.0-75.0); PLATELET COUNT 476 K/UL (150-450); RED BLOOD COUNT 3.25 M/UL (4.70-6.10); RED CELL DISTRIBUTION WIDTH 12.2 % (11.6-14.8); WHITE BLOOD COUNT 12.5 K/UL (4.8-10.8)
--- NOTE | 2019-08-22 07:10 | NUR ---
NURSE NOTES: Received patient in bed. Awake A/O x1. Patient is on room air, respirations even and unlabored. Bilateral soft-wrist restraints in place, hands are warm and normal color for ethnicity. Patient denies pain at this time. 1/2 side rails up, bed at the lowest position. Patient has no IV access, MD was previously notified.
--- NOTE | 2019-08-22 07:21 | NUR ---
HAND-OFF: Report given to Abhijeet MCGEE.
--- NOTE | 2019-08-22 07:54 | Nephrology Progress Note ---
Assessment/Plan Assessment/Plan: A/P 1) Hypertension - stable at goal (2) Sepsis- Abx per ID (3) CKD 4- Cr 1.9 - prn IVFs (4) Dehydration- resolved. (5) Urinary retention- per Urology, dickson Subjective Date patient seen: Aug 22, 2019 Time patient seen: 07:53 ROS Limited/Unobtainable: No Allergies: Coded Allergies: No Known Allergies (Unverified , 07/21/19) Subjective Patient sleeping comfortably in no distress Objective Last 24 Hour Vital Signs Date Time Temp Pulse Resp B/P (MAP) Pulse Ox O2 Delivery O2 Flow Rate FiO2 08/22/19 05:43 150/74 08/22/19 04:00 98.4 86 24 150/63 (92) 98 08/22/19 00:00 98.1 101 20 150/74 (99) 98 08/21/19 22:31 Room Air 08/21/19 22:18 170/78 08/21/19 20:00 97.9 64 20 170/74 (106) 98 08/21/19 16:00 98.5 68 17 164/86 (112) 98 08/21/19 15:05 164/86 08/21/19 12:00 98.3 88 17 167/78 (107) 100 08/21/19 10:38 88 167/78 08/21/19 09:00 Room Air 08/21/19 08:00 98.8 94 17 168/83 (111) 100 Intake and Output 08/21/19 08/22/19 18:59 06:59 Intake Total 750 ml Output Total 2300 ml Balance -1550 ml Intake Oral 600 ml IV Total 150 ml Output Urine Total 2300 ml Laboratory Tests 08/22/19 06:00: White Blood Count 12.5H, Red Blood Count 3.25L, Hemoglobin 10.5L, Hematocrit 29.9L, Mean Corpuscular Volume 92, Mean Corpuscular Hemoglobin 32.1H, Mean Corpuscular Hemoglobin Concent 35.0, Red Cell Distribution Width 12.2, Platelet Count 476H, Mean Platelet Volume 5.7L, Neutrophils (%) (Auto) 70.6, Lymphocytes (%) (Auto) 15.7L, Monocytes (%) (Auto) 9.7, Eosinophils (%) (Auto) 2.9, Basophils (%) (Auto) 1.2 Height (Feet): 5 Height (Inches): 5.00 Weight (Pounds): 176 General Appearance: no apparent distress EENT: normal ENT inspection Neck: normal alignment, supple Cardiovascular: normal rate, regular rhythm Respiratory/Chest: normal breath sounds Abdomen: non tender, soft Edema: no edema noted Arm (L), no edema noted Arm (R), no edema noted Leg (L), no edema noted Leg (R), no edema noted Pedal (L), no edema noted Pedal (R), no edema noted Generalized Luan Oneill MD Aug 22, 2019 07:54
[2019-08-22 08:00] VITALS: BP 154/66
[2019-08-22] MEDS: Tamsulosin 0.4mg cap ORAL SCH ×2 (08:58→17:27)
[2019-08-22] MEDS: Bethanechol 25mg Tab ORAL SCH ×3 (08:58→17:27)
[2019-08-22] MEDS: Heparin 5000 units/ml inj SUBQ SCH ×2 (09:00→21:59)
--- NOTE | 2019-08-22 10:00 | NUR ---
NURSE NOTES: Changed Bilateral heels dressing. Cavilon and optifoam.
--- NOTE | 2019-08-22 10:25 | Pulmonology Progress Note ---
Assessment/Plan Assessment/Plan Pulmonary Progress Note Assessment/Plan Problems: (1) Rhabdomyolysis (2) JERMAINE (acute kidney injury) (3) Dehydration (4) Episode of generalized weakness (5) Weakness (6) Gait abnormality (7) Failure to thrive in adult (8) Hypertension, benign (9) Toxic metabolic encephalopathy (10) Bacteremia due to Staphylococcus (11) Positive RPR test (12) CVA (cerebral vascular accident) (13) Syphilis Assessment/Plan 1. Acute and chronic CVA, likely embolic 2. AMS, 2/2 above 3. 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 Dehydration/rhabdomyolysis/lactic acidosis - Improved 5. Hyperproteinemia, possible myeloma 6. Hypertension 7. JERMAINE vs CKD, likely both 8. Obstructive uropathy 9. Generalized weakness 10. Anemia, FOBT neg PLAN: LESA pending Abx per ID: PCN G Per IR unable to do LP QT ok, Haldol 2.5 q6 PRN IM, Seroquel PO if able BP control PT/OT DVT Px: Hep SQ Dispo planning to SNF once acute issues resolved Subjective Allergies: Coded Allergies: No Known Allergies (Unverified , 07/21/19) Subjective LESA not done 2/2 no IV! NAEO More alert No F/C/CP/SOB Objective Vital Signs Noted General Appearance: no acute distress, cachetic HEENT: normocephalic, atraumatic, anicteric, mucous membranes moist Respiratory/Chest: chest wall non-tender, lungs clear, normal breath sounds, no respiratory distress, no accessory muscle use Cardiovascular: normal peripheral pulses, normal rate, regular rhythm Abdomen: normal bowel sounds, soft, non tender, no organomegaly, non distended , no mass Extremities: no cyanosis, no clubbing, no edema Laboratory Tests 08/20/19 16:03: White Blood Count 11.3H, Red Blood Count 3.07L, Hemoglobin 9.6L, Hematocrit 28.3L, Mean Corpuscular Volume 92, Mean Corpuscular Hemoglobin 31.3H, Mean Corpuscular Hemoglobin Concent 34.0, Red Cell Distribution Width 12.1, Platelet Count 406, Mean Platelet Volume 5.8L, Neutrophils (%) (Auto) 65.9, Lymphocytes ( %) (Auto) 16.2L, Monocytes (%) (Auto) 9.2, Eosinophils (%) (Auto) 6.3H, Basophils (%) (Auto) 2.4H, Sodium Level 144, Potassium Level 3.7, Chloride Level 109H, Carbon Dioxide Level 22, Anion Gap 13, Blood Urea Nitrogen 25H, Creatinine 1.8H, Estimat Glomerular Filtration Rate , Glucose Level 119H, Calcium Level 8.5, Total Bilirubin 0.8, Aspartate Amino Transf (AST/SGOT) 27, Alanine Aminotransferase (ALT/SGPT) 34, Alkaline Phosphatase 66, Total Protein 6.8, Albumin 3.0L, Globulin 3.8, Albumin/Globulin Ratio 0.8L 08/21/19 05:05: Sodium Level 144, Potassium Level 4.4, Chloride Level 108H, Carbon Dioxide Level 22, Anion Gap 14, Blood Urea Nitrogen 29H, Creatinine 1.9H, Estimat Glomerular Filtration Rate , Glucose Level 108H, Calcium Level 9.0 Current Medications Medications (Trade) Dose Ordered Sig/Hanh Route PRN Reason Start Time Stop Time Status Last Admin Dose Admin Acetaminophen (Tylenol) 650 mg Q6H PRN ORAL Mild Pain/Temp > 100.5 08/16/19 03:30 09/12/19 15:22 08/20/19 01:14 Amlodipine Besylate (Norvasc) 10 mg DAILY ORAL 08/16/19 09:00 08/25/19 17:59 08/20/19 09:04 Bethanechol Chloride (Urecholine) 50 mg THREE TIMES A DAY ORAL 08/16/19 09:00 09/01/19 13:59 08/20/19 18:04 Bisacodyl (Dulcolax) 10 mg DAILYPRN PRN RECTAL Constipation 08/16/19 15:30 09/12/19 15:22 08/17/19 03:21 Clonidine HCl (Catapres TTS-3) 1 patch QWEEK TDERMAL 08/19/19 12:00 08/21/19 11:59 08/19/19 12:31 Clonidine HCl (Catapres tab) 0.2 mg Q2H PRN ORAL sbp>170 08/16/19 03:30 09/12/19 15:23 08/19/19 08:45 Dextrose/Sodium Chloride 1,000 ml @ 75 mls/hr [id number] IV 08/16/19 16:00 09/15/19 15:59 08/21/19 04:00 Finasteride (Proscar) 5 mg DAILY ORAL 08/16/19 09:00 08/27/19 08:59 08/20/19 08:58 Folic Acid (Folate) 1 mg DAILY ORAL 08/16/19 09:00 09/05/19 08:59 08/20/19 08:58 Haloperidol Lactate (Haldol) 2.5 mg Q6H PRN IM Agitation 08/16/19 06:15 09/14/19 12:14 08/19/19 20:27 Heparin Sodium (Porcine) (Heparin 5000 units/ml) 5,000 units EVERY 12 HOURS SUBQ 08/16/19 09:00 08/31/19 20:59 08/20/19 20:46 Hydralazine HCl (Apresoline) 100 mg Q8HR ORAL 08/16/19 14:00 09/15/19 13:59 08/21/19 05:41 Penicillin G Potassium 3 mu/ Sodium Chloride 55 ml @ 110 mls/hr Q4HR IVPB 08/19/19 17:00 08/29/19 16:59 08/21/19 09:17 Quetiapine Fumarate (SEROqueL) 25 mg Q6H PRN ORAL For Anxiety 08/16/19 03:30 09/12/19 15:23 Tamsulosin HCl (Flomax) 0.4 mg BID ORAL 08/16/19 09:00 08/26/19 17:59 08/20/19 18:02 Subjective ROS Limited/Unobtainable: No Allergies: Coded Allergies: No Known Allergies (Unverified , 07/21/19) Objective Last 24 Hour Vital Signs Date Time Temp Pulse Resp B/P (MAP) Pulse Ox O2 Delivery O2 Flow Rate FiO2 08/22/19 08:59 80 154/66 08/22/19 08:00 98.1 80 19 154/66 (95) 95 08/22/19 05:43 150/74 08/22/19 04:00 98.4 86 24 150/63 (92) 98 08/22/19 00:00 98.1 101 20 150/74 (99) 98 08/21/19 22:31 Room Air 08/21/19 22:18 170/78 08/21/19 20:00 97.9 64 20 170/74 (106) 98 08/21/19 16:00 98.5 68 17 164/86 (112) 98 08/21/19 15:05 164/86 08/21/19 12:00 98.3 88 17 167/78 (107) 100 08/21/19 10:38 88 167/78 Intake and Output 08/21/19 08/22/19 19:00 07:00 Intake Total 750 ml Output Total 2300 ml Balance -1550 ml Intake Oral 600 ml IV Total 150 ml Output Urine Total 2300 ml Laboratory Tests 08/22/19 06:00: White Blood Count 12.5H, Red Blood Count 3.25L, Hemoglobin 10.5L, Hematocrit 29.9L, Mean Corpuscular Volume 92, Mean Corpuscular Hemoglobin 32.1H, Mean Corpuscular Hemoglobin Concent 35.0, Red Cell Distribution Width 12.2, Platelet Count 476H, Mean Platelet Volume 5.7L, Neutrophils (%) (Auto) 70.6, Lymphocytes (%) (Auto) 15.7L, Monocytes (%) (Auto) 9.7, Eosinophils (%) (Auto) 2.9, Basophils (%) (Auto) 1.2 Current Medications Medications (Trade) Dose Ordered Sig/Hanh Route PRN Reason Start Time Stop Time Status Last Admin Dose Admin Acetaminophen (Tylenol) 650 mg Q6H PRN ORAL Mild Pain/Temp > 100.5 08/16/19 03:30 09/12/19 15:22 08/20/19 01:14 Amlodipine Besylate (Norvasc) 10 mg DAILY ORAL 08/16/19 09:00 08/25/19 17:59 08/22/19 08:59 Bethanechol Chloride (Urecholine) 50 mg THREE TIMES A DAY ORAL 08/16/19 09:00 09/01/19 13:59 08/22/19 08:58 Bisacodyl (Dulcolax) 10 mg DAILYPRN PRN RECTAL Constipation 08/16/19 15:30 09/12/19 15:22 08/17/19 03:21 Chlorhexidine Gluconate (Caity-Hex 2%) 1 applic DAILY@2000 TOPIC 08/21/19 20:00 09/20/19 19:59 08/21/19 20:37 Clonidine HCl (Catapres tab) 0.2 mg Q2H PRN ORAL sbp>170 08/16/19 03:30 09/12/19 15:23 08/19/19 08:45 Finasteride (Proscar) 5 mg DAILY ORAL 08/16/19 09:00 08/27/19 08:59 08/22/19 08:58 Folic Acid (Folate) 1 mg DAILY ORAL 08/16/19 09:00 09/05/19 08:59 08/22/19 08:58 Haloperidol Lactate (Haldol) 2.5 mg Q6H PRN IM Agitation 08/16/19 06:15 09/14/19 12:14 08/19/19 20:27 Heparin Sodium (Porcine) (Heparin 5000 units/ml) 5,000 units EVERY 12 HOURS SUBQ 08/16/19 09:00 08/31/19 20:59 08/22/19 09:00 Heparin Sodium/ Sodium Chloride (Heparin 1000 units/500ml Premix) 1,000 unit ONCE PRN IV PICC LINE 08/21/19 13:30 08/23/19 13:29 Hydralazine HCl (Apresoline) 100 mg Q8HR ORAL 08/16/19 14:00 09/15/19 13:59 08/22/19 05:43 Lidocaine HCl (Xylocaine 1% 30ml) 30 ml ONCE PRN INJ PICC LINE 08/21/19 13:30 08/23/19 13:29 Penicillin G Potassium 3 mu/ Sodium Chloride 55 ml @ 110 mls/hr Q4HR IVPB 08/19/19 17:00 08/29/19 16:59 08/21/19 09:17 Quetiapine Fumarate (SEROqueL) 25 mg Q6H PRN ORAL For Anxiety 08/16/19 03:30 09/12/19 15:23 Tamsulosin HCl (Flomax) 0.4 mg BID ORAL 08/16/19 09:00 08/26/19 17:59 08/22/19 08:58 Varghese Mattson MD Aug 22, 2019 10:24
--- NOTE | 2019-08-22 11:40 | Cardiac Electrophysiology PN ---
Assessment/Plan Status Narrative MRI Brain: Multiple foci of restricted diffusion, as described. Most of these were evident on prior study of 08/05/2019, indicating that these are residual subacute infarcts. However, there are a few new areas as detailed above, indicating lacunar infarcts that have occurred since the previous study Assessment/Plan 1. 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 EF 60%. Off anticoagulation to prevent hemorrhagic conversion of CVA until cleared by Neurology. Remained in [place] when was on tele. Awaiting transfer to [facility] for LESA. 2. Hypertension. On Norvasc 10 mg daily, Hydralazine 100 q8, clonidine patch weekly and p.r.n. clonidine 3. Benign prostatic hypertrophy on Flomax and Proscar. 4. Dementia, on Seroquel per Dr. Mandel. 5. Acute rhabdomyolysis. 6. Staph bacteremia.On Abx 7. Stage 3 chronic kidney disease.Cr 1.9 8. AMS. ?due to CVA. FU Dr Sarah CARTER RN and Dr Cervantes Subjective Subjective Was agitated earlier in restraints. Awaiting transfer to [facility] for LESA Objective Last 24 Hour Vital Signs Date Time Temp Pulse Resp B/P (MAP) Pulse Ox O2 Delivery O2 Flow Rate FiO2 08/22/19 09:00 Room Air 08/22/19 08:59 80 154/66 08/22/19 08:00 98.1 80 19 154/66 (95) 95 08/22/19 05:43 150/74 08/22/19 04:00 98.4 86 24 150/63 (92) 98 08/22/19 00:00 98.1 101 20 150/74 (99) 98 08/21/19 22:31 Room Air 08/21/19 22:18 170/78 08/21/19 20:00 97.9 64 20 170/74 (106) 98 08/21/19 16:00 98.5 68 17 164/86 (112) 98 08/21/19 15:05 164/86 08/21/19 12:00 98.3 88 17 167/78 (107) 100 Intake and Output 08/21/19 08/22/19 18:59 06:59 Intake Total 750 ml Output Total 2300 ml Balance -1550 ml Intake Oral 600 ml IV Total 150 ml Output Urine Total 2300 ml Laboratory Tests Test 08/22/19 06:00 White Blood Count 12.5 K/UL (4.8-10.8) H Red Blood Count 3.25 M/UL (4.70-6.10) L Hemoglobin 10.5 G/DL (14.2-18.0) L Hematocrit 29.9 % (42.0-52.0) L Mean Corpuscular Volume 92 FL (80-99) Mean Corpuscular Hemoglobin 32.1 PG (27.0-31.0) H Mean Corpuscular Hemoglobin Concent 35.0 G/DL (32.0-36.0) Red Cell Distribution Width 12.2 % (11.6-14.8) Platelet Count 476 K/UL (150-450) H Mean Platelet Volume 5.7 FL (6.5-10.1) L Neutrophils (%) (Auto) 70.6 % (45.0-75.0) Lymphocytes (%) (Auto) 15.7 % (20.0-45.0) L Monocytes (%) (Auto) 9.7 % (1.0-10.0) Eosinophils (%) (Auto) 2.9 % (0.0-3.0) Basophils (%) (Auto) 1.2 % (0.0-2.0) Objective HEAD AND NECK: No JVD. LUNGS: Clear. CARDIOVASCULAR: Regular S1 and S2 with no gallop or murmur. ABDOMEN: Soft and nontender. EXTREMITIES: No pitting edema. Lance Nichols MD Aug 22, 2019 11:40
--- NOTE | 2019-08-22 11:52 | Urology Progress Note ---
Assessment/Plan Assessment/Plan: 1. Urinary retention. 2. BPH history. 3. Probable neurogenic bladder. 4. Renal insufficiency acute on chronic. 5. Hematuria. dickson remains indwelling for now, replaced 08/11 secured to pt's leg hand irrigated and do PRN cont with flomax, proscar urecholine dose increased minimize seroquel on abx repeat voiding trial later, once more alert and ambulatory cysto later Subjective Allergies: Coded Allergies: No Known Allergies (Unverified , 07/21/19) Subjective all noted, no new complaints, dickson indwelling Objective Last 24 Hour Vital Signs Date Time Temp Pulse Resp B/P (MAP) Pulse Ox O2 Delivery O2 Flow Rate FiO2 08/22/19 09:00 Room Air 08/22/19 08:59 80 154/66 08/22/19 08:00 98.1 80 19 154/66 (95) 95 08/22/19 05:43 150/74 08/22/19 04:00 98.4 86 24 150/63 (92) 98 08/22/19 00:00 98.1 101 20 150/74 (99) 98 08/21/19 22:31 Room Air 08/21/19 22:18 170/78 08/21/19 20:00 97.9 64 20 170/74 (106) 98 08/21/19 16:00 98.5 68 17 164/86 (112) 98 08/21/19 15:05 164/86 08/21/19 12:00 98.3 88 17 167/78 (107) 100 Intake and Output 08/21/19 08/22/19 19:00 07:00 Intake Total 750 ml Output Total 2300 ml Balance -1550 ml Intake Oral 600 ml IV Total 150 ml Output Urine Total 2300 ml Microbiology Date/Time Source Procedure Growth Status 08/13/19 09:25 Blood Blood Culture - Final NO GROWTH AFTER 5 DAYS Complete 07/21/19 17:35 Nasal Nares - Final Complete 07/21/19 17:35 Nasal Nares - Final Complete 08/13/19 11:10 Indwelling Cath Urine Culture - Final Morganella Morg Spp Morganii Complete Current Medications Medications (Trade) Dose Ordered Sig/Hanh Route PRN Reason Start Time Stop Time Status Last Admin Dose Admin Acetaminophen (Tylenol) 650 mg Q6H PRN ORAL Mild Pain/Temp > 100.5 08/16/19 03:30 09/12/19 15:22 08/20/19 01:14 Amlodipine Besylate (Norvasc) 10 mg DAILY ORAL 08/16/19 09:00 08/25/19 17:59 08/22/19 08:59 Bethanechol Chloride (Urecholine) 50 mg THREE TIMES A DAY ORAL 08/16/19 09:00 09/01/19 13:59 08/22/19 08:58 Bisacodyl (Dulcolax) 10 mg DAILYPRN PRN RECTAL Constipation 08/16/19 15:30 09/12/19 15:22 08/17/19 03:21 Chlorhexidine Gluconate (Caity-Hex 2%) 1 applic DAILY@2000 TOPIC 08/21/19 20:00 09/20/19 19:59 08/21/19 20:37 Clonidine HCl (Catapres tab) 0.2 mg Q2H PRN ORAL sbp>170 08/16/19 03:30 09/12/19 15:23 08/19/19 08:45 Finasteride (Proscar) 5 mg DAILY ORAL 08/16/19 09:00 08/27/19 08:59 08/22/19 08:58 Folic Acid (Folate) 1 mg DAILY ORAL 08/16/19 09:00 09/05/19 08:59 08/22/19 08:58 Haloperidol Lactate (Haldol) 2.5 mg Q6H PRN IM Agitation 08/16/19 06:15 09/14/19 12:14 08/19/19 20:27 Heparin Sodium (Porcine) (Heparin 5000 units/ml) 5,000 units EVERY 12 HOURS SUBQ 08/16/19 09:00 08/31/19 20:59 08/22/19 09:00 Heparin Sodium/ Sodium Chloride (Heparin 1000 units/500ml Premix) 1,000 unit ONCE PRN IV PICC LINE 08/21/19 13:30 08/23/19 13:29 Hydralazine HCl (Apresoline) 100 mg Q8HR ORAL 08/16/19 14:00 09/15/19 13:59 08/22/19 05:43 Lidocaine HCl (Xylocaine 1% 30ml) 30 ml ONCE PRN INJ PICC LINE 08/21/19 13:30 08/23/19 13:29 Penicillin G Potassium 3 mu/ Sodium Chloride 55 ml @ 110 mls/hr Q4HR IVPB 08/19/19 17:00 08/29/19 16:59 08/21/19 09:17 Quetiapine Fumarate (SEROqueL) 25 mg Q6H PRN ORAL For Anxiety 08/16/19 03:30 09/12/19 15:23 Tamsulosin HCl (Flomax) 0.4 mg BID ORAL 08/16/19 09:00 08/26/19 17:59 08/22/19 08:58 Laboratory Tests 08/22/19 06:00: White Blood Count 12.5H, Red Blood Count 3.25L, Hemoglobin 10.5L, Hematocrit 29.9L, Mean Corpuscular Volume 92, Mean Corpuscular Hemoglobin 32.1H, Mean Corpuscular Hemoglobin Concent 35.0, Red Cell Distribution Width 12.2, Platelet Count 476H, Mean Platelet Volume 5.7L, Neutrophils (%) (Auto) 70.6, Lymphocytes (%) (Auto) 15.7L, Monocytes (%) (Auto) 9.7, Eosinophils (%) (Auto) 2.9, Basophils (%) (Auto) 1.2 Height (Feet): 5 Height (Inches): 5.00 Weight (Pounds): 176 Objective exam stable dickson indwelling Kali Serrano MD Aug 22, 2019 11:52
[2019-08-22 12:00] VITALS: BP 160/77
--- NOTE | 2019-08-22 14:32 | Neurology Progress Note ---
Interim History Interim History Interim History Mr. Reji Au is a 79-year-old, right-handed, black gentleman, who has a relatively benign past history. He was brought to the hospital on 07/21/2019 after he had apparently fallen down and was on the floor of his apartment for 4 days. He himself has no recollection of what happened. Since he has been here he has been noted to have some gait problems. He is again negativistic today. He prefers to keep his eyes closed. He is nonverbal. He does however follow some commands inconsistently. He says he feels okay by nodding yes. He refuses to answer any other questions. Review of Systems Neuro Review of Systems Unable to obtain. Objective Physical Exam Last Vital Signs Date Time Temp Pulse Resp B/P (MAP) Pulse Ox O2 Delivery O2 Flow Rate FiO2 08/22/19 13:04 160/77 08/22/19 12:00 97.9 80 18 97 08/22/19 09:00 Room Air Laboratory Tests Test 08/22/19 06:00 White Blood Count 12.5 K/UL (4.8-10.8) H Red Blood Count 3.25 M/UL (4.70-6.10) L Hemoglobin 10.5 G/DL (14.2-18.0) L Hematocrit 29.9 % (42.0-52.0) L Mean Corpuscular Volume 92 FL (80-99) Mean Corpuscular Hemoglobin 32.1 PG (27.0-31.0) H Mean Corpuscular Hemoglobin Concent 35.0 G/DL (32.0-36.0) Red Cell Distribution Width 12.2 % (11.6-14.8) Platelet Count 476 K/UL (150-450) H Mean Platelet Volume 5.7 FL (6.5-10.1) L Neutrophils (%) (Auto) 70.6 % (45.0-75.0) Lymphocytes (%) (Auto) 15.7 % (20.0-45.0) L Monocytes (%) (Auto) 9.7 % (1.0-10.0) Eosinophils (%) (Auto) 2.9 % (0.0-3.0) Basophils (%) (Auto) 1.2 % (0.0-2.0) Neurologic Exam Objective PHYSICAL EXAMINATION: GENERAL: He is a well-developed, relatively well-nourished, Black gentleman, lying in bed in no acute distress. HEAD: Normocephalic and atraumatic. NECK: No neck rigidity was observed. EENT examination: Benign. NEUROLOGICAL EXAMINATION: Mental status examination: He was negativistic. He was nonverbal. He did follow some commands inconsistently. Further mental status testing was impossible. Frontal systems tasks: Could not be tested. Speech: He was mute. Language: He did not cooperate for language testing. Cranial nerve examination: II: He did blink to threat. III, IV & : The external ocular movements were present. The pupils were 3 mm in diameter and reactive sluggishly to light. V-VII: The corneal reflexes were equal bilaterally. He had a trace right seventh central facial paresis. VIII: He was able to hear and had no nystagmus. IX: The palate moved symmetrically on phonation. X: He had no hoarseness of voice. XI: The sternocleidomastoids and trapezii functioned. XII: The tongue was in the midline. Motor system: The tone was normal in all 4 extremities. Examination of muscle mass revealed no focal wasting. Examination of power was impossible to perform accurately. He did however move all 4 extremities briskly on applying deep painful stimuli. Sensory examination: He did move all 4 extremities briskly on applying deep painful stimuli. Reflexes: 2+ and bilaterally symmetrical at the biceps, triceps, brachioradialis and knees. 0 at both ankles. The plantar responses were flexor. Coordination: Could not be tested. Stance: He refused to stand. Gait: He refused to walk. Impression/Recommendations Diagnostic Impression DIAGNOSTIC IMPRESSION: 1. Mr. Reji Au is a 79-year-old, right-handed, black gentleman, who has a relatively benign past history. He was brought to the hospital on 07/21/2019 after he had apparently fallen down and was on the floor of his apartment for 4 days. He himself has no recollection of what happened. Since he has been here he has been noted to have some gait problems. 2. He is again negativistic today. He prefers to keep his eyes closed. He is nonverbal. He does however follow some commands inconsistently. He says he feels okay by nodding yes. He refuses to answer any other questions. 3. On neurological examination, at this time, he is negativistic. He is nonverbal. He does follow some commands inconsistently. Further mental status testing is impossible. He has a trace right seventh central facial paresis. He however does not demonstrate any lateralizing findings on his motor, sensory, or reflex examination. 4. Laboratory data on my initial evaluation revealed that he was anemic with a hemoglobin of 11.5 G. His latest BUN was 42 and latest creatinine is 2.3. When he came in his CK was 2257 and it had normalized to 241. He was folic acid deficient with a folic acid level of 7.5. His RPR was positive in a low titre of 1:1. The FTA-ABS is reactive. 5. The urine analysis performed today reveals 3+ leukocyte esterase, 5-10 red blood cells and too numerous to count white blood cells per high-power field. 6. The MRI scan of the brain performed on 08/05/2019 revealed multiple acute infarcts involving both cerebral hemispheres, basal ganglia, and the left cerebellum. In addition multiple old small infarcts scattered in the brain were also seen. 7. The MRI scan of the brain repeated on 08/12/2019 revealed multiple new acute infarctions in multiple different vascular territories. 8. A CT of the brain revealed atrophy, deep white matter changes and old infarcts but no acute pathology. 9. Prolonged cardiac monitoring has revealed no arrhythmia. 10. The patient's history, neurological examination, laboratory data, and imaging studies, are most consistent with multiple showers of emboli to the brain over multiple different time periods. Leading to significant neurological dysfunction. 11. Patient also has a positive peripheral RPR and FTA-ABS. This is indicative of exposure to syphilis. Neurosyphilis could not be excluded as a LP could not be performed. However he is being treated for it. 12. His recent decline in neurological function may be related to the acute urinary tract infection in addition to all the other problems that he has. He is again exhibiting behavioral problems. Recommendations RECOMMENDATIONS: 1. Continue present management. 2. LESA - whenever! 3. Continue physical and occupational therapy to mobilize patient. 4. Aggressive treatment of acute infectious process. 5. Folic acid 1 mg daily for folate deficiency. 6. Observe closely. Beka Smith M.D., M.S.P.H. Neurologist & Clinical Neurophysiologist Beka Smith MD Aug 22, 2019 14:32
--- NOTE | 2019-08-22 15:11 | NUR ---
PT WEEKLY PROGRESS NOTE : Patient is being seen by PT for strengthening exercises, therapeutic activities, gait training . Patient currently requires CGA/MIN A x 1 for bed mobility and transfers with FWW. Patient able to ambulate average distance of 30 ft with MIN/CGA X 1 assist and FWW. Patient demonstrating improvement in gait stability and balance as evidenced by decreased level of assist and improved time efficiency in mobility tasks. Patient will continue to benefit from skilled PT intervention to improve his strength, balance and safety for improved level of functional mobility independence and safety . Recommend SNF for further rehab intervention at [place].
[2019-08-22 16:00] VITALS: BP 131/58
--- NOTE | 2019-08-22 16:52 | NUR ---
*-* INSURANCE *-* UPDATE CLINICALS HAVE BEEN FAXED TO: [facility] OPAL:PRIETO P: [phone] F: [phone]
--- NOTE | 2019-08-22 17:25 | NUR ---
CASE MANAGEMENT: REVIEW 08/21/2019 SI: DEHYDRATION . BACTEREMIA . ENCEPHALOPATHY . RHABDOMYOLYSIS 98.5 68 17 164/86 98% ON RA CL-108 BUN 29 CREAT 1.9 BG 108 IS: ZOSYN IV Q8/HR HEPARIN SUBQ Q12HR HYDRALAZINE PO Q8HR PROSCAR PO QD FLOMAX PO BID CLONIDINE Q2HR/PRN URECHOLINE PO TID NORVASC PO QD MED/SURG STATUS DCP: PATIENT IS FROM HOME . SEEKING SNF PLACEMENT PLAN: L[facility]A THIS SUNDAY D/T UNABLE TO TRANSFER TO [place] FOR [facility] LUMBAR TAP -R/O NEURO SYPHILIS -PENDING; PATIENT TOO LETHARGIC TO COMPLETE EXAM URINE CX (+) CASE MANAGEMENT: REVIEW 08/22/2019 SI: DEHYDRATION . BACTEREMIA . ENCEPHALOPATHY . RHABDOMYOLYSIS 98.5 72 19 131/58 100% ON RA WBC 12.5 H/H 10.5/29.9 PLT 476 IS: ZOSYN IV Q8/HR HEPARIN SUBQ Q12HR HYDRALAZINE PO Q8HR PROSCAR PO QD FLOMAX PO BID CLONIDINE Q2HR/PRN URECHOLINE PO TID NORVASC PO QD MED/SURG STATUS DCP: PATIENT IS FROM HOME . SEEKING SNF PLACEMENT PLAN: [facility] THIS SUNDAY D/T UNABLE TO TRANSFER TO [place] FOR L[facility]A LUMBAR TAP -R/O NEURO SYPHILIS -PENDING; PATIENT TOO LETHARGIC TO COMPLETE EXAM URINE CX (+)
--- NOTE | 2019-08-22 19:00 | Progress Note ---
DATE: 08/22/2019 SUBJECTIVE: The patient is the same and still has cognitive impairment. More alert than previous encounter. The patient is slightly improved. Unable to answer the questions due to cognitive impairment. Minimally verbal. MENTAL STATUS EXAMINATION: Alert, oriented times self and place. Mood is neutral. Affect is constricted, congruent with mood. Thought process is concrete. Thought content, no suicidal or homicidal ideation. Cognition is impaired. Insight and judgment impaired. ASSESSMENT: Stable. PLAN: We will continue current medication. Nury Mandel M.D. DR: MANUEL JOB#: [id number] CC:
--- NOTE | 2019-08-22 19:25 | NUR ---
HAND-OFF: Report given to Cipriano MCGEE.
--- NOTE | 2019-08-22 19:50 | NUR ---
NURSE NOTES: Pt is in bed, asleep. No acute distress noted. Vitas stable. Bilat soft wrist restraints in place, restraints sites asymptomatic. Room air. IV site on left hand 22G. Pt will be allowed ROM exercises, pt will be offered nutrition and hydration. Pt will be repositioned frequently. Fall precaution in place. Bed locked low in position,side rails up and call light within reach.
[2019-08-22 20:00] VITALS: BP 151/73
[2019-08-22] MEDS: Dyna-Hex 2% Top Sol 2oz TOPIC SCH (20:00)
--- NOTE | 2019-08-22 20:02 | Infectious Diseases Prog Note ---
Assessment/Plan Problems: (1) Leukocytosis Assessment & Plan: dehydration VS infection related , await repeated blood culture , monitor labs , monitor clinically (2) Fever Assessment & Plan: resolved , source suspect CAUTI with morganella morganii , received zosyn for 6 days , CXR was negative for any infiltrates, blood culture x2 was negative , now on penicillin G iv for 10 DAYS to cover for possible neurosyphillis (3) Positive RPR test Assessment & Plan: with low titer and reactive FTA-ABS , rule out neurosyphilis , LP was NOT done since he was altered as per radiologist . TPPA serum is pending . screening for HIV is negative . 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 repeated blood cultures so far have been negative, with negative JOHN, and RF screening , recommend LESA to better evaluate his valves . doesn't meet criteria for infectious endocarditis. on Penicillin to treat for possible neurosyphillis (5) CKD (chronic kidney disease) stage 3, GFR 30-59 ml/min Assessment & Plan: avoid nephrotoxics, close monitoring of renal function, follow up with nephrology (6) Failure to thrive in adult Assessment & Plan: etiology? dementia possibly, screening for HIV is negative , may need placement (7) Encephalopathy acute Assessment & Plan: improving now, suspect recurrent CVA, VS meds side effect , VS metabolic. already on antibiotics to cover for possible neurosyphillis . neurology is following (8) Urinary retention Assessment & Plan: S/P dickson catheter placement , urology is following Subjective ROS Limited/Unobtainable: Yes Allergies: Coded Allergies: No Known Allergies (Unverified , 07/21/19) Subjective He was lying in bed , alert, but still confused and follows some verbal commands , no cough or SOB, no nausea or vomiting , no diarrhea , had Dickson catheter placed in on 08/11/19 , with cloudy urine in it Objective Vital Signs Last 24 Hour Vital Signs Date Time Temp Pulse Resp B/P (MAP) Pulse Ox O2 Delivery O2 Flow Rate FiO2 08/22/19 16:00 98.5 72 19 131/58 (82) 100 08/22/19 13:04 160/77 08/22/19 12:00 97.9 80 18 160/77 (104) 97 08/22/19 09:00 Room Air 08/22/19 08:59 80 154/66 08/22/19 08:00 98.1 80 19 154/66 (95) 95 08/22/19 05:43 150/74 08/22/19 04:00 98.4 86 24 150/63 (92) 98 08/22/19 00:00 98.1 101 20 150/74 (99) 98 08/21/19 22:31 Room Air 08/21/19 22:18 170/78 Height (Feet): 5 Height (Inches): 5.00 Weight (Pounds): 176 General Appearance: WD/WN, no acute distress HEENT: normocephalic, atraumatic, anicteric, mucous membranes moist, PERRL Respiratory/Chest: chest wall non-tender, lungs clear, normal breath sounds, no respiratory distress, no accessory muscle use Cardiovascular: normal peripheral pulses, normal rate, regular rhythm, no gallop/murmur, no JVD Abdomen: normal bowel sounds, soft, non tender, no organomegaly, non distended , no mass, no scars Genitourinary: normal external genitalia Extremities: no cyanosis, no clubbing Skin: no rash, no lesions, no ulcers Neurologic/Psychiatric: alert, responsive Lymphatic: no neck adenopathy, no groin adenopathy Musculoskeletal: normal muscle bulk, no effusion Laboratory Tests Test 08/22/19 06:00 White Blood Count 12.5 K/UL (4.8-10.8) H Red Blood Count 3.25 M/UL (4.70-6.10) L Hemoglobin 10.5 G/DL (14.2-18.0) L Hematocrit 29.9 % (42.0-52.0) L Mean Corpuscular Volume 92 FL (80-99) Mean Corpuscular Hemoglobin 32.1 PG (27.0-31.0) H Mean Corpuscular Hemoglobin Concent 35.0 G/DL (32.0-36.0) Red Cell Distribution Width 12.2 % (11.6-14.8) Platelet Count 476 K/UL (150-450) H Mean Platelet Volume 5.7 FL (6.5-10.1) L Neutrophils (%) (Auto) 70.6 % (45.0-75.0) Lymphocytes (%) (Auto) 15.7 % (20.0-45.0) L Monocytes (%) (Auto) 9.7 % (1.0-10.0) Eosinophils (%) (Auto) 2.9 % (0.0-3.0) Basophils (%) (Auto) 1.2 % (0.0-2.0) Current Medications Medications (Trade) Dose Ordered Sig/Hanh Route PRN Reason Start Time Stop Time Status Last Admin Dose Admin Acetaminophen (Tylenol) 650 mg Q6H PRN ORAL Mild Pain/Temp > 100.5 08/16/19 03:30 09/12/19 15:22 08/20/19 01:14 Amlodipine Besylate (Norvasc) 10 mg DAILY ORAL 08/16/19 09:00 08/25/19 17:59 08/22/19 08:59 Bethanechol Chloride (Urecholine) 50 mg THREE TIMES A DAY ORAL 08/16/19 09:00 09/01/19 13:59 08/22/19 17:27 Bisacodyl (Dulcolax) 10 mg DAILYPRN PRN RECTAL Constipation 08/16/19 15:30 09/12/19 15:22 08/17/19 03:21 Chlorhexidine Gluconate (Caity-Hex 2%) 1 applic DAILY@2000 TOPIC 08/21/19 20:00 09/20/19 19:59 08/21/19 20:37 Clonidine HCl (Catapres tab) 0.2 mg Q2H PRN ORAL sbp>170 08/16/19 03:30 09/12/19 15:23 08/19/19 08:45 Finasteride (Proscar) 5 mg DAILY ORAL 08/16/19 09:00 08/27/19 08:59 08/22/19 08:58 Folic Acid (Folate) 1 mg DAILY ORAL 08/16/19 09:00 09/05/19 08:59 08/22/19 08:58 Haloperidol Lactate (Haldol) 2.5 mg Q6H PRN IM Agitation 08/16/19 06:15 09/14/19 12:14 08/19/19 20:27 Heparin Sodium (Porcine) (Heparin 5000 units/ml) 5,000 units EVERY 12 HOURS SUBQ 08/16/19 09:00 08/31/19 20:59 08/22/19 09:00 Heparin Sodium/ Sodium Chloride (Heparin 1000 units/500ml Premix) 1,000 unit ONCE PRN IV PICC LINE 08/21/19 13:30 08/23/19 13:29 Hydralazine HCl (Apresoline) 100 mg Q8HR ORAL 08/16/19 14:00 09/15/19 13:59 08/22/19 13:04 Lidocaine HCl (Xylocaine 1% 30ml) 30 ml ONCE PRN INJ PICC LINE 08/21/19 13:30 08/23/19 13:29 Penicillin G Potassium 3 mu/ Sodium Chloride 55 ml @ 110 mls/hr Q4HR IVPB 08/19/19 17:00 08/29/19 16:59 08/22/19 16:39 Quetiapine Fumarate (SEROqueL) 25 mg Q6H PRN ORAL For Anxiety 08/16/19 03:30 09/12/19 15:23 Tamsulosin HCl (Flomax) 0.4 mg BID ORAL 08/16/19 09:00 08/26/19 17:59 08/22/19 17:27 Anastasia Lion M.D. Aug 22, 2019 20:01
[2019-08-23] VITALS: BP 159/83
[2019-08-23] MEDS: NS IVPB SCH ×6 (01:38→20:43)
[2019-08-23] MEDS: PENICILLIN POTASSIUM MU IVPB SCH ×6 (01:38→20:43)
[2019-08-23 04:00] VITALS: BP 154/88
[2019-08-23] MEDS: HydrALAZINE 50mg tab ORAL SCH ×3 (05:23→21:27)
--- NOTE | 2019-08-23 07:20 | NUR ---
HAND-OFF: Report given to Femi Garcia RN.Pt is in bed, awake and verbal. No acute distress noted. Incoming shift informed that patient is fall risk.
--- NOTE | 2019-08-23 07:37 | NUR ---
NURSE NOTES: Patient awake, alert x1, confused; on room air, no sing of distress and shortness of breath; no sing of chest pain; IV Left Hand 22G TKO; Bilateral soft Wrist Restrain in place; side rails up x2, breaks engaged, bed at lowest position, bed alarm on; call light within reach; will keep monitoring.
[2019-08-23 08:00] VITALS: BP 145/69
[2019-08-23] MEDS: Heparin 5000 units/ml inj SUBQ SCH ×2 (09:02→20:45)
[2019-08-23] MEDS: Tamsulosin 0.4mg cap ORAL SCH ×2 (09:03→17:24)
[2019-08-23] MEDS: Bethanechol 25mg Tab ORAL SCH ×3 (09:04→17:24)
--- NOTE | 2019-08-23 09:05 | Urology Progress Note ---
Assessment/Plan Assessment/Plan: 1. Urinary retention. 2. BPH history. 3. Probable neurogenic bladder. 4. Renal insufficiency acute on chronic. 5. Hematuria. dickson remains indwelling for now, replaced 08/11 secured to pt's leg hand irrigated and do PRN cont with flomax, proscar urecholine dose increased minimize seroquel on abx pt more alert and starting to ambulate plan for voiding trial soon cysto later Subjective Allergies: Coded Allergies: No Known Allergies (Unverified , 07/21/19) Subjective all noted, no new complaints, dickson indwelling, starting to ambulate with PT Objective Last 24 Hour Vital Signs Date Time Temp Pulse Resp B/P (MAP) Pulse Ox O2 Delivery O2 Flow Rate FiO2 08/23/19 09:04 89 145/69 08/23/19 08:00 98.0 89 20 145/69 (94) 97 08/23/19 05:23 154/88 08/23/19 04:00 98.0 86 20 154/88 (110) 100 08/23/19 00:00 98.4 86 20 159/83 (108) 100 08/22/19 21:54 151/73 08/22/19 21:00 Room Air 08/22/19 20:00 98.6 76 20 151/73 (99) 100 08/22/19 16:00 98.5 72 19 131/58 (82) 100 08/22/19 13:04 160/77 08/22/19 12:00 97.9 80 18 160/77 (104) 97 Intake and Output 08/22/19 08/23/19 19:00 07:00 Intake Total 980 ml 165 ml Output Total 700 ml 600 ml Balance 280 ml -435 ml Intake Oral 980 ml IV Total 165 ml Output Urine Total 700 ml 600 ml Microbiology Date/Time Source Procedure Growth Status 08/21/19 15:29 Blood Blood Culture - Preliminary NO GROWTH AFTER 24 HOURS Resulted 07/21/19 17:35 Nasal Nares - Final Complete 07/21/19 17:35 Nasal Nares - Final Complete 08/13/19 11:10 Indwelling Cath Urine Culture - Final Morganella Morg Spp Morganii Complete Current Medications Medications (Trade) Dose Ordered Sig/Hanh Route PRN Reason Start Time Stop Time Status Last Admin Dose Admin Acetaminophen (Tylenol) 650 mg Q6H PRN ORAL Mild Pain/Temp > 100.5 08/16/19 03:30 09/12/19 15:22 08/20/19 01:14 Amlodipine Besylate (Norvasc) 10 mg DAILY ORAL 08/16/19 09:00 08/25/19 17:59 08/23/19 09:04 Bethanechol Chloride (Urecholine) 50 mg THREE TIMES A DAY ORAL 08/16/19 09:00 09/01/19 13:59 08/23/19 09:04 Bisacodyl (Dulcolax) 10 mg DAILYPRN PRN RECTAL Constipation 08/16/19 15:30 09/12/19 15:22 08/17/19 03:21 Chlorhexidine Gluconate (Caity-Hex 2%) 1 applic DAILY@2000 TOPIC 08/21/19 20:00 09/20/19 19:59 08/21/19 20:37 Clonidine HCl (Catapres tab) 0.2 mg Q2H PRN ORAL sbp>170 08/16/19 03:30 09/12/19 15:23 08/19/19 08:45 Finasteride (Proscar) 5 mg DAILY ORAL 08/16/19 09:00 08/27/19 08:59 08/23/19 09:01 Folic Acid (Folate) 1 mg DAILY ORAL 08/16/19 09:00 09/05/19 08:59 08/23/19 09:03 Haloperidol Lactate (Haldol) 2.5 mg Q6H PRN IM Agitation 08/16/19 06:15 09/14/19 12:14 08/19/19 20:27 Heparin Sodium (Porcine) (Heparin 5000 units/ml) 5,000 units EVERY 12 HOURS SUBQ 08/16/19 09:00 08/31/19 20:59 08/23/19 09:02 Heparin Sodium/ Sodium Chloride (Heparin 1000 units/500ml Premix) 1,000 unit ONCE PRN IV PICC LINE 08/21/19 13:30 08/23/19 13:29 Hydralazine HCl (Apresoline) 100 mg Q8HR ORAL 08/16/19 14:00 09/15/19 13:59 08/23/19 05:23 Lidocaine HCl (Xylocaine 1% 30ml) 30 ml ONCE PRN INJ PICC LINE 08/21/19 13:30 08/23/19 13:29 Penicillin G Potassium 3 mu/ Sodium Chloride 55 ml @ 110 mls/hr Q4HR IVPB 08/19/19 17:00 08/29/19 16:59 08/23/19 05:23 Quetiapine Fumarate (SEROqueL) 25 mg Q6H PRN ORAL For Anxiety 08/16/19 03:30 09/12/19 15:23 08/22/19 21:54 Tamsulosin HCl (Flomax) 0.4 mg BID ORAL 08/16/19 09:00 08/26/19 17:59 08/23/19 09:03 Height (Feet): 5 Height (Inches): 5.00 Weight (Pounds): 176 Objective exam stable dickson indwelling Kali Serrano MD Aug 23, 2019 09:05
--- NOTE | 2019-08-23 10:10 | Pulmonology Progress Note ---
Assessment/Plan Assessment/Plan Pulmonary Progress Note Assessment/Plan Problems: (1) Rhabdomyolysis (2) JERMAINE (acute kidney injury) (3) Dehydration (4) Episode of generalized weakness (5) Weakness (6) Gait abnormality (7) Failure to thrive in adult (8) Hypertension, benign (9) Toxic metabolic encephalopathy (10) Bacteremia due to Staphylococcus (11) Positive RPR test (12) CVA (cerebral vascular accident) (13) Syphilis Assessment/Plan 1. Acute and chronic CVA, likely embolic 2. AMS, 2/2 above 3. 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 Dehydration/rhabdomyolysis/lactic acidosis - Improved 5. Hyperproteinemia, possible myeloma 6. Hypertension 7. JERMAINE vs CKD, likely both 8. Obstructive uropathy 9. Generalized weakness 10. Anemia, FOBT neg PLAN: LESA pending Abx per ID: PCN G Per IR unable to do LP QT ok, Haldol 2.5 q6 PRN IM, Seroquel PO if able BP control PT/OT DVT Px: Hep SQ Dispo planning to SNF once acute issues resolved Subjective Allergies: Coded Allergies: No Known Allergies (Unverified , 07/21/19) Subjective LESA not done 2/2 no IV! NAEO More alert No F/C/CP/SOB Objective Vital Signs Noted General Appearance: no acute distress, cachetic HEENT: normocephalic, atraumatic, anicteric, mucous membranes moist Respiratory/Chest: chest wall non-tender, lungs clear, normal breath sounds, no respiratory distress, no accessory muscle use Cardiovascular: normal peripheral pulses, normal rate, regular rhythm Abdomen: normal bowel sounds, soft, non tender, no organomegaly, non distended , no mass Extremities: no cyanosis, no clubbing, no edema Laboratory Tests 08/20/19 16:03: White Blood Count 11.3H, Red Blood Count 3.07L, Hemoglobin 9.6L, Hematocrit 28.3L, Mean Corpuscular Volume 92, Mean Corpuscular Hemoglobin 31.3H, Mean Corpuscular Hemoglobin Concent 34.0, Red Cell Distribution Width 12.1, Platelet Count 406, Mean Platelet Volume 5.8L, Neutrophils (%) (Auto) 65.9, Lymphocytes ( %) (Auto) 16.2L, Monocytes (%) (Auto) 9.2, Eosinophils (%) (Auto) 6.3H, Basophils (%) (Auto) 2.4H, Sodium Level 144, Potassium Level 3.7, Chloride Level 109H, Carbon Dioxide Level 22, Anion Gap 13, Blood Urea Nitrogen 25H, Creatinine 1.8H, Estimat Glomerular Filtration Rate , Glucose Level 119H, Calcium Level 8.5, Total Bilirubin 0.8, Aspartate Amino Transf (AST/SGOT) 27, Alanine Aminotransferase (ALT/SGPT) 34, Alkaline Phosphatase 66, Total Protein 6.8, Albumin 3.0L, Globulin 3.8, Albumin/Globulin Ratio 0.8L 08/21/19 05:05: Sodium Level 144, Potassium Level 4.4, Chloride Level 108H, Carbon Dioxide Level 22, Anion Gap 14, Blood Urea Nitrogen 29H, Creatinine 1.9H, Estimat Glomerular Filtration Rate , Glucose Level 108H, Calcium Level 9.0 Current Medications Medications (Trade) Dose Ordered Sig/Hanh Route PRN Reason Start Time Stop Time Status Last Admin Dose Admin Acetaminophen (Tylenol) 650 mg Q6H PRN ORAL Mild Pain/Temp > 100.5 08/16/19 03:30 09/12/19 15:22 08/20/19 01:14 Amlodipine Besylate (Norvasc) 10 mg DAILY ORAL 08/16/19 09:00 08/25/19 17:59 08/20/19 09:04 Bethanechol Chloride (Urecholine) 50 mg THREE TIMES A DAY ORAL 08/16/19 09:00 09/01/19 13:59 08/20/19 18:04 Bisacodyl (Dulcolax) 10 mg DAILYPRN PRN RECTAL Constipation 08/16/19 15:30 09/12/19 15:22 08/17/19 03:21 Clonidine HCl (Catapres TTS-3) 1 patch QWEEK TDERMAL 08/19/19 12:00 08/21/19 11:59 08/19/19 12:31 Clonidine HCl (Catapres tab) 0.2 mg Q2H PRN ORAL sbp>170 08/16/19 03:30 09/12/19 15:23 08/19/19 08:45 Dextrose/Sodium Chloride 1,000 ml @ 75 mls/hr [id number] IV 08/16/19 16:00 09/15/19 15:59 08/21/19 04:00 Finasteride (Proscar) 5 mg DAILY ORAL 08/16/19 09:00 08/27/19 08:59 08/20/19 08:58 Folic Acid (Folate) 1 mg DAILY ORAL 08/16/19 09:00 09/05/19 08:59 08/20/19 08:58 Haloperidol Lactate (Haldol) 2.5 mg Q6H PRN IM Agitation 08/16/19 06:15 09/14/19 12:14 08/19/19 20:27 Heparin Sodium (Porcine) (Heparin 5000 units/ml) 5,000 units EVERY 12 HOURS SUBQ 08/16/19 09:00 08/31/19 20:59 08/20/19 20:46 Hydralazine HCl (Apresoline) 100 mg Q8HR ORAL 08/16/19 14:00 09/15/19 13:59 08/21/19 05:41 Penicillin G Potassium 3 mu/ Sodium Chloride 55 ml @ 110 mls/hr Q4HR IVPB 08/19/19 17:00 08/29/19 16:59 08/21/19 09:17 Quetiapine Fumarate (SEROqueL) 25 mg Q6H PRN ORAL For Anxiety 08/16/19 03:30 09/12/19 15:23 Tamsulosin HCl (Flomax) 0.4 mg BID ORAL 08/16/19 09:00 08/26/19 17:59 08/20/19 18:02 Subjective ROS Limited/Unobtainable: No Allergies: Coded Allergies: No Known Allergies (Unverified , 07/21/19) Objective Last 24 Hour Vital Signs Date Time Temp Pulse Resp B/P (MAP) Pulse Ox O2 Delivery O2 Flow Rate FiO2 08/23/19 09:04 89 145/69 08/23/19 08:00 98.0 89 20 145/69 (94) 97 08/23/19 05:23 154/88 08/23/19 04:00 98.0 86 20 154/88 (110) 100 08/23/19 00:00 98.4 86 20 159/83 (108) 100 08/22/19 21:54 151/73 08/22/19 21:00 Room Air 08/22/19 20:00 98.6 76 20 151/73 (99) 100 08/22/19 16:00 98.5 72 19 131/58 (82) 100 08/22/19 13:04 160/77 08/22/19 12:00 97.9 80 18 160/77 (104) 97 Intake and Output 08/22/19 08/23/19 19:00 07:00 Intake Total 980 ml 165 ml Output Total 700 ml 600 ml Balance 280 ml -435 ml Intake Oral 980 ml IV Total 165 ml Output Urine Total 700 ml 600 ml Microbiology Date/Time Source Procedure Growth Status 08/21/19 15:29 Blood Blood Culture - Preliminary NO GROWTH AFTER 24 HOURS Resulted 08/21/19 15:25 Blood Blood Culture - Preliminary NO GROWTH AFTER 24 HOURS Resulted Current Medications Medications (Trade) Dose Ordered Sig/Hanh Route PRN Reason Start Time Stop Time Status Last Admin Dose Admin Acetaminophen (Tylenol) 650 mg Q6H PRN ORAL Mild Pain/Temp > 100.5 08/16/19 03:30 09/12/19 15:22 08/20/19 01:14 Amlodipine Besylate (Norvasc) 10 mg DAILY ORAL 08/16/19 09:00 08/25/19 17:59 08/23/19 09:04 Bethanechol Chloride (Urecholine) 50 mg THREE TIMES A DAY ORAL 08/16/19 09:00 09/01/19 13:59 08/23/19 09:04 Bisacodyl (Dulcolax) 10 mg DAILYPRN PRN RECTAL Constipation 08/16/19 15:30 09/12/19 15:22 08/17/19 03:21 Chlorhexidine Gluconate (Caity-Hex 2%) 1 applic DAILY@2000 TOPIC 08/21/19 20:00 09/20/19 19:59 08/21/19 20:37 Clonidine HCl (Catapres tab) 0.2 mg Q2H PRN ORAL sbp>170 08/16/19 03:30 09/12/19 15:23 08/19/19 08:45 Finasteride (Proscar) 5 mg DAILY ORAL 08/16/19 09:00 08/27/19 08:59 08/23/19 09:01 Folic Acid (Folate) 1 mg DAILY ORAL 08/16/19 09:00 09/05/19 08:59 08/23/19 09:03 Haloperidol Lactate (Haldol) 2.5 mg Q6H PRN IM Agitation 08/16/19 06:15 09/14/19 12:14 08/19/19 20:27 Heparin Sodium (Porcine) (Heparin 5000 units/ml) 5,000 units EVERY 12 HOURS SUBQ 08/16/19 09:00 08/31/19 20:59 08/23/19 09:02 Heparin Sodium/ Sodium Chloride (Heparin 1000 units/500ml Premix) 1,000 unit ONCE PRN IV PICC LINE 08/21/19 13:30 08/23/19 13:29 Hydralazine HCl (Apresoline) 100 mg Q8HR ORAL 08/16/19 14:00 09/15/19 13:59 08/23/19 05:23 Lidocaine HCl (Xylocaine 1% 30ml) 30 ml ONCE PRN INJ PICC LINE 08/21/19 13:30 08/23/19 13:29 Penicillin G Potassium 3 mu/ Sodium Chloride 55 ml @ 110 mls/hr Q4HR IVPB 08/19/19 17:00 08/29/19 16:59 08/23/19 09:44 Quetiapine Fumarate (SEROqueL) 25 mg Q6H PRN ORAL For Anxiety 08/16/19 03:30 09/12/19 15:23 08/22/19 21:54 Tamsulosin HCl (Flomax) 0.4 mg BID ORAL 08/16/19 09:00 08/26/19 17:59 08/23/19 09:03 Varghese Mattson MD Aug 23, 2019 10:10
--- NOTE | 2019-08-23 11:45 | Nephrology Progress Note ---
Assessment/Plan Problem List: (1) Hypertension, benign (2) Toxic metabolic encephalopathy (3) Gait abnormality (4) Rhabdomyolysis (5) JERMAINE (acute kidney injury) (6) Dehydration (7) Episode of generalized weakness (8) Bacteremia due to Staphylococcus (9) CKD (chronic kidney disease) stage 3, GFR 30-59 ml/min (10) Urinary retention Plan f/u lab, , mobilize, try to get coop to po meds po intake borderline adequate, trend lab Subjective ROS Limited/Unobtainable: Yes Objective Objective Last 24 Hour Vital Signs Date Time Temp Pulse Resp B/P (MAP) Pulse Ox O2 Delivery O2 Flow Rate FiO2 08/23/19 09:04 89 145/69 08/23/19 09:00 Room Air 08/23/19 08:00 98.0 89 20 145/69 (94) 97 08/23/19 05:23 154/88 08/23/19 04:00 98.0 86 20 154/88 (110) 100 08/23/19 00:00 98.4 86 20 159/83 (108) 100 08/22/19 21:54 151/73 08/22/19 21:00 Room Air 08/22/19 20:00 98.6 76 20 151/73 (99) 100 08/22/19 16:00 98.5 72 19 131/58 (82) 100 08/22/19 13:04 160/77 08/22/19 12:00 97.9 80 18 160/77 (104) 97 Intake and Output 08/22/19 08/23/19 19:00 07:00 Intake Total 980 ml 165 ml Output Total 700 ml 600 ml Balance 280 ml -435 ml Intake Oral 980 ml IV Total 165 ml Output Urine Total 700 ml 600 ml Height (Feet): 5 Height (Inches): 5.00 Weight (Pounds): 176 General Appearance: alert, confused EENT: normal ENT inspection Neck: normal alignment, supple Cardiovascular: regular rhythm, regularly irregular Respiratory/Chest: lungs clear Abdomen: non tender, soft Neurologic: custodial aide II-XII grossly normal Objective dickson clear urine Arthur Bethea MD Aug 23, 2019 11:45
[2019-08-23 12:00] VITALS: BP 136/80
--- NOTE | 2019-08-23 13:16 | Cardiac Electrophysiology PN ---
Assessment/Plan Status Narrative MRI Brain: Multiple foci of restricted diffusion, as described. Most of these were evident on prior study of 08/05/2019, indicating that these are residual subacute infarcts. However, there are a few new areas as detailed above, indicating lacunar infarcts that have occurred since the previous study Assessment/Plan 1. 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 EF 60%. Off anticoagulation to prevent hemorrhagic conversion of CVA until cleared by Neurology. Remained in SR when was on tele. Awaiting transfer to [facility] for LESA. 2. Hypertension. On Norvasc 10 mg daily, Hydralazine 100 q8, clonidine patch weekly and p.r.n. clonidine 3. Benign prostatic hypertrophy on Flomax and Proscar. 4. Dementia, on Seroquel per Dr. Mandel. 5. Acute rhabdomyolysis. 6. Staph bacteremia.On Abx 7. Stage 3 chronic kidney disease.Cr 1.9 8. AMS. ?due to CVA. FU Dr Sarah CARTER RN and Dr Cervantes Subjective Subjective Alert in NAD. Being fed be the sitter. Awaiting transfer to [facility] for LESA Objective Last 24 Hour Vital Signs Date Time Temp Pulse Resp B/P (MAP) Pulse Ox O2 Delivery O2 Flow Rate FiO2 08/23/19 12:00 97.5 80 18 136/80 (98) 99 08/23/19 09:04 89 145/69 08/23/19 09:00 Room Air 08/23/19 08:00 98.0 89 20 145/69 (94) 97 08/23/19 05:23 154/88 08/23/19 04:00 98.0 86 20 154/88 (110) 100 08/23/19 00:00 98.4 86 20 159/83 (108) 100 08/22/19 21:54 151/73 08/22/19 21:00 Room Air 08/22/19 20:00 98.6 76 20 151/73 (99) 100 08/22/19 16:00 98.5 72 19 131/58 (82) 100 Intake and Output 08/22/19 08/23/19 19:00 07:00 Intake Total 980 ml 165 ml Output Total 700 ml 600 ml Balance 280 ml -435 ml Intake Oral 980 ml IV Total 165 ml Output Urine Total 700 ml 600 ml Microbiology Date/Time Source Procedure Growth Status 1/30/20 15:29 Blood Blood Culture - Preliminary NO GROWTH AFTER 24 HOURS Resulted 08/21/19 15:25 Blood Blood Culture - Preliminary NO GROWTH AFTER 24 HOURS Resulted Objective HEAD AND NECK: No JVD. LUNGS: Clear. CARDIOVASCULAR: Regular S1 and S2 with no gallop or murmur. ABDOMEN: Soft and nontender. EXTREMITIES: No pitting edema. Lance Nichols MD Aug 23, 2019 13:16
--- NOTE | 2019-08-23 15:50 | NUR ---
NURSE NOTES: Wound care provided; dressing changed; patient tolerated well;
[2019-08-23 16:00] VITALS: BP 129/74
--- NOTE | 2019-08-23 18:07 | Neurology Progress Note ---
Interim History Interim History Interim History Mr. Reji Au is a 79-year-old, right-handed, black gentleman, who has a relatively benign past history. He was brought to the hospital on 07/21/2019 after he had apparently fallen down and was on the floor of his apartment for 4 days. He himself has no recollection of what happened. Since he has been here he has been noted to have some gait problems. He is bright and communicative today. He follows commands well. The mind is clearer today. He says that his appetite has been very good. He feels generally stronger. He denies any new neurological symptoms. Review of Systems Neuro Review of Systems Benign. Objective Physical Exam Last Vital Signs Date Time Temp Pulse Resp B/P (MAP) Pulse Ox O2 Delivery O2 Flow Rate FiO2 08/23/19 16:00 98.4 77 18 129/74 (92) 98 08/23/19 09:00 Room Air Neurologic Exam Objective PHYSICAL EXAMINATION: GENERAL: He is a well-developed, relatively well-nourished, Black gentleman, lying in bed in no acute distress. HEAD: Normocephalic and atraumatic. NECK: No neck rigidity was observed. EENT examination: Benign. NEUROLOGICAL EXAMINATION: Mental status examination: He was awake and alert. He was oriented to self, [facility] and "2019 only. He was able to recall 3/3 words immediately but could not remember them after 1 and 3 minutes. He was able to remember presidents Trump and Obama only when first names were given to him. His mathematical skills were impaired. His visuospatial function was also impaired. Frontal systems tasks: He was unable to perform Luria's hand sequences. Speech: He had no dysarthria. Language: He was able to comprehend and express himself. Cranial nerve examination: II: The visual kang were intact on confrontation. III, IV & : The external ocular movements were full. The pupils were 3 mm in diameter and reactive sluggishly to light. V-VII: The corneal reflexes were equal bilaterally. He had a trace right seventh central facial paresis. VIII: He was able to hear and had no nystagmus. IX: The palate moved symmetrically on phonation. X: He had no hoarseness of voice. XI: The sternocleidomastoids and trapezii functioned. XII: The tongue was in the midline. Motor system: The tone was normal in all 4 extremities. Examination of muscle mass revealed no focal wasting. Examination of power was impossible to perform accurately however he moved all 4 extremities on command and gave me good hand safety risk lead bilaterally. Sensory examination: He was able to localize light touch. Reflexes: 2+ and bilaterally symmetrical at the biceps, triceps, brachioradialis and knees. 0 at both ankles. The plantar responses were flexor. Coordination: He performed well on [id number] testing. Stance: Deferred. Gait: Deferred. Impression/Recommendations Diagnostic Impression DIAGNOSTIC IMPRESSION: 1. Mr. Reji Au is a 79-year-old, right-handed, black gentleman, who has a relatively benign past history. He was brought to the hospital on 07/21/2019 after he had apparently fallen down and was on the floor of his apartment for 4 days. He himself has no recollection of what happened. Since he has been here he has been noted to have some gait problems. 2. He is bright and communicative today. He follows commands well. The mind is clearer today. He says that his appetite has been very good. He feels generally stronger. He denies any new neurological symptoms. 3. On neurological examination, at this time, he is awake and alert. He is oriented to self, [facility] and "July" 2020 only. He is able to recall 3/3 words immediately but cannot remember them after 1 and 3 minutes. He is able to remember presidents Trump and Obama only when first names were given to him. His mathematical skills are impaired. His visuospatial function is also impaired. He is unable to perform Luria's hand sequences. He has no dysarthria. He is able to comprehend and express himself. He has a trace right seventh central facial paresis. He however does not demonstrate any lateralizing findings on his motor, sensory, or reflex examination. 4. Laboratory data on my initial evaluation revealed that he was anemic with a hemoglobin of 11.5 G. His latest BUN was 42 and latest creatinine is 2.3. When he came in his CK was 2257 and it had normalized to 241. He was folic acid deficient with a folic acid level of 7.5. His RPR was positive in a low titre of 1:1. The FTA-ABS is reactive. 5. The urine analysis performed today reveals 3+ leukocyte esterase, 5-10 red blood cells and too numerous to count white blood cells per high-power field. 6. The MRI scan of the brain performed on 08/05/2019 revealed multiple acute infarcts involving both cerebral hemispheres, basal ganglia, and the left cerebellum. In addition multiple old small infarcts scattered in the brain were also seen. 7. The MRI scan of the brain repeated on 08/12/2019 revealed multiple new acute infarctions in multiple different vascular territories. 8. A CT of the brain revealed atrophy, deep white matter changes and old infarcts but no acute pathology. 9. Prolonged cardiac monitoring has revealed no arrhythmia. 10. The patient's history, neurological examination, laboratory data, and imaging studies, are most consistent with multiple showers of emboli to the brain over multiple different time periods. Leading to significant neurological dysfunction. 11. Patient also has a positive peripheral RPR and FTA-ABS. This is indicative of exposure to syphilis. Neurosyphilis could not be excluded as a LP could not be performed. However he is being treated for it. 12. His recent decline in neurological function may be related to the acute urinary tract infection in addition to all the other problems that he has. He is well behaved today. Recommendations RECOMMENDATIONS: 1. Continue present management. 2. LESA - whenever! 3. Continue physical and occupational therapy to mobilize patient. 4. Aggressive treatment of acute infectious process. 5. Folic acid 1 mg daily for folate deficiency. 6. Observe closely. Beka Smith M.D., M.S.P.H. Neurologist & Clinical Neurophysiologist Beka Smith MD Aug 23, 2019 18:07
--- NOTE | 2019-08-23 19:31 | NUR ---
HAND-OFF: Report given to ARELY Ojeda.
--- NOTE | 2019-08-23 19:53 | NUR ---
NURSE NOTES: Patient in bed, awake, alert x 2. Unable to make needs known. Respirations is even and unlabored. Kept clean and comfortable. No s/s of distress noted. Skin is warm and dry to touch. Abdomen is soft and non distended. Bed in low and locked position. Provided safe environment. Call light is at bedside. Noted with bilateral restraints, skin is warm , pulse noted. Will continue plan of care.
[2019-08-23 20:00] VITALS: BP 143/71
--- NOTE | 2019-08-23 20:11 | Infectious Diseases Prog Note ---
Assessment/Plan Problems: (1) Leukocytosis Assessment & Plan: dehydration VS infection related , await repeated blood culture , monitor labs , monitor clinically (2) Fever Assessment & Plan: resolved , source suspect CAUTI with morganella morganii , received zosyn for 6 days , CXR was negative for any infiltrates, blood culture x2 was negative , now on penicillin G iv for 10 DAYS to cover for possible neurosyphillis (3) Positive RPR test Assessment & Plan: with low titer and reactive FTA-ABS , rule out neurosyphilis , LP was NOT done since he was altered as per radiologist . TPPA serum is pending . screening for HIV is negative . 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 repeated blood cultures so far have been negative, with negative JOHN, and RF screening , recommend LESA to better evaluate his valves . doesn't meet criteria for infectious endocarditis. on Penicillin to treat for possible neurosyphillis (5) CKD (chronic kidney disease) stage 3, GFR 30-59 ml/min Assessment & Plan: avoid nephrotoxics, close monitoring of renal function, follow up with nephrology (6) Failure to thrive in adult Assessment & Plan: etiology? dementia possibly, screening for HIV is negative , may need placement (7) Encephalopathy acute Assessment & Plan: improving now, suspect recurrent CVA, VS meds side effect , VS metabolic. already on antibiotics to cover for possible neurosyphillis . neurology is following (8) Urinary retention Assessment & Plan: S/P dickson catheter placement , urology is following Subjective ROS Limited/Unobtainable: Yes Allergies: Coded Allergies: No Known Allergies (Unverified , 07/21/19) Subjective He was lying in bed , alert, but still confused and follows some verbal commands , no cough or SOB, no nausea or vomiting , no diarrhea , had Dickson catheter placed in on 08/11/19 , with cloudy urine in it Objective Vital Signs Last 24 Hour Vital Signs Date Time Temp Pulse Resp B/P (MAP) Pulse Ox O2 Delivery O2 Flow Rate FiO2 08/23/19 16:00 98.4 77 18 129/74 (92) 98 08/23/19 13:35 136/80 08/23/19 12:00 97.5 80 18 136/80 (98) 99 08/23/19 09:04 89 145/69 08/23/19 09:00 Room Air 08/23/19 08:00 98.0 89 20 145/69 (94) 97 08/23/19 05:23 154/88 08/23/19 04:00 98.0 86 20 154/88 (110) 100 08/23/19 00:00 98.4 86 20 159/83 (108) 100 08/22/19 21:54 151/73 08/22/19 21:00 Room Air Height (Feet): 5 Height (Inches): 5.00 Weight (Pounds): 176 General Appearance: WD/WN, no acute distress HEENT: normocephalic, atraumatic, anicteric, mucous membranes moist, PERRL Respiratory/Chest: chest wall non-tender, lungs clear, normal breath sounds, no respiratory distress, no accessory muscle use Cardiovascular: normal peripheral pulses, normal rate, regular rhythm, no gallop/murmur, no JVD Abdomen: normal bowel sounds, soft, non tender, no organomegaly, non distended , no mass, no scars Genitourinary: normal external genitalia Extremities: no cyanosis, no clubbing Skin: no rash, no lesions, no ulcers Neurologic/Psychiatric: alert, responsive Lymphatic: no neck adenopathy, no groin adenopathy Musculoskeletal: normal muscle bulk, no effusion Microbiology Date/Time Source Procedure Growth Status 08/21/19 15:29 Blood Blood Culture - Preliminary NO GROWTH AFTER 24 HOURS Resulted 08/21/19 15:25 Blood Blood Culture - Preliminary NO GROWTH AFTER 24 HOURS Resulted Current Medications Medications (Trade) Dose Ordered Sig/Hanh Route PRN Reason Start Time Stop Time Status Last Admin Dose Admin Acetaminophen (Tylenol) 650 mg Q6H PRN ORAL Mild Pain/Temp > 100.5 08/16/19 03:30 09/12/19 15:22 08/20/19 01:14 Amlodipine Besylate (Norvasc) 10 mg DAILY ORAL 08/16/19 09:00 08/25/19 17:59 08/23/19 09:04 Bethanechol Chloride (Urecholine) 50 mg THREE TIMES A DAY ORAL 08/16/19 09:00 09/01/19 13:59 08/23/19 17:24 Bisacodyl (Dulcolax) 10 mg DAILYPRN PRN RECTAL Constipation 08/16/19 15:30 09/12/19 15:22 08/17/19 03:21 Chlorhexidine Gluconate (Caity-Hex 2%) 1 applic DAILY@2000 TOPIC 08/21/19 20:00 09/20/19 19:59 08/21/19 20:37 Clonidine HCl (Catapres tab) 0.2 mg Q2H PRN ORAL sbp>170 08/16/19 03:30 09/12/19 15:23 08/19/19 08:45 Finasteride (Proscar) 5 mg DAILY ORAL 08/16/19 09:00 08/27/19 08:59 08/23/19 09:01 Folic Acid (Folate) 1 mg DAILY ORAL 08/16/19 09:00 09/05/19 08:59 08/23/19 09:03 Haloperidol Lactate (Haldol) 2.5 mg Q6H PRN IM Agitation 08/16/19 06:15 09/14/19 12:14 08/19/19 20:27 Heparin Sodium (Porcine) (Heparin 5000 units/ml) 5,000 units EVERY 12 HOURS SUBQ 08/16/19 09:00 08/31/19 20:59 08/23/19 09:02 Hydralazine HCl (Apresoline) 100 mg Q8HR ORAL 08/16/19 14:00 09/15/19 13:59 08/23/19 13:35 Penicillin G Potassium 3 mu/ Sodium Chloride 55 ml @ 110 mls/hr Q4HR IVPB 08/19/19 17:00 08/29/19 16:59 08/23/19 17:41 Quetiapine Fumarate (SEROqueL) 25 mg Q6H PRN ORAL For Anxiety 08/16/19 03:30 09/12/19 15:23 08/22/19 21:54 Tamsulosin HCl (Flomax) 0.4 mg BID ORAL 08/16/19 09:00 08/26/19 17:59 08/23/19 17:24 Anastasia Lion M.D. Aug 23, 2019 20:11
[2019-08-23] MEDS: Dyna-Hex 2% Top Sol 2oz TOPIC SCH (20:43)
[2019-08-24] VITALS: BP 150/72
[2019-08-24] MEDS: PENICILLIN POTASSIUM MU IVPB SCH ×6 (00:07→21:21)
[2019-08-24] MEDS: NS IVPB SCH ×6 (00:07→21:21)
[2019-08-24 04:00] VITALS: BP 154/83
[2019-08-24] MEDS: HydrALAZINE 50mg tab ORAL SCH ×3 (05:07→21:28)
[2019-08-24 07:03] LABS: ANION GAP 13 mmol/L (5-15); BLOOD UREA NITROGEN 27 mg/dL (7-18); CARBON DIOXIDE 23 MMOL/L (21-32); CHLORIDE 110 MMOL/L (98-107); POTASSIUM 4.6 MMOL/L (3.5-5.1); SODIUM 146 MMOL/L (136-145)
--- NOTE | 2019-08-24 07:31 | NUR ---
HAND-OFF: Report given to Jemima Kuo.
--- NOTE | 2019-08-24 07:34 | NUR ---
NURSE NOTES: Patient awake, alert x2; on room air, no sing of distress and shortness of breath; no sing of chest pain; IV Left-Hand 22G TKO; Walsh in place, drains yellow urine; Bilateral soft wrist restrain in place; side rails up x2, breaks engaged, bed at lowest position, bed alarm on, head of the bed elevated; call light within reach; will keep monitoring.
[2019-08-24 08:00] VITALS: BP 149/70
[2019-08-24] MEDS: Tamsulosin 0.4mg cap ORAL SCH ×2 (08:51→17:19)
[2019-08-24] MEDS: Bethanechol 25mg Tab ORAL SCH ×3 (08:52→17:20)
[2019-08-24] MEDS: Heparin 5000 units/ml inj SUBQ SCH ×2 (08:53→21:22)
--- NOTE | 2019-08-24 09:44 | Urology Progress Note ---
Assessment/Plan Assessment/Plan: 1. Urinary retention. 2. BPH history. 3. Probable neurogenic bladder. 4. Renal insufficiency acute on chronic. 5. Hematuria. dickson remains indwelling for now, replaced 08/11 secured to pt's leg hand irrigated and do PRN cont with flomax, proscar urecholine dose increased minimize seroquel on abx pt more alert and starting to ambulate plan for voiding trial soon cysto later f/u on blood cx d/w nursing staff Subjective Allergies: Coded Allergies: No Known Allergies (Unverified , 07/21/19) Subjective all noted, no new complaints, dickson indwelling, starting to ambulate with PT Objective Last 24 Hour Vital Signs Date Time Temp Pulse Resp B/P (MAP) Pulse Ox O2 Delivery O2 Flow Rate FiO2 08/24/19 09:00 Room Air 08/24/19 08:51 99 149/70 08/24/19 08:00 98.1 99 20 149/70 (96) 98 08/24/19 05:07 154/83 08/24/19 04:00 97.9 85 21 154/83 (106) 96 08/24/19 00:00 98.0 72 20 150/72 (98) 95 08/23/19 21:27 135/70 08/23/19 20:52 Room Air 08/23/19 20:00 98.6 78 20 143/71 (95) 96 08/23/19 16:00 98.4 77 18 129/74 (92) 98 08/23/19 13:35 136/80 08/23/19 12:00 97.5 80 18 136/80 (98) 99 Intake and Output 08/23/19 08/24/19 19:00 07:00 Intake Total 1130 ml 450 ml Output Total 800 ml 1000 ml Balance 330 ml -550 ml Intake Oral 800 ml 450 ml IV Total 330 ml Output Urine Total 800 ml 1000 ml # Bowel Movements 1 Microbiology Date/Time Source Procedure Growth Status 08/21/19 15:29 Blood Blood Culture - Preliminary NO GROWTH AFTER 48 HOURS Resulted 07/21/19 17:35 Nasal Nares - Final Complete 07/21/19 17:35 Nasal Nares - Final Complete 08/13/19 11:10 Indwelling Cath Urine Culture - Final Morganella Morg Spp Morganii Complete Current Medications Medications (Trade) Dose Ordered Sig/Hanh Route PRN Reason Start Time Stop Time Status Last Admin Dose Admin Acetaminophen (Tylenol) 650 mg Q6H PRN ORAL Mild Pain/Temp > 100.5 08/16/19 03:30 09/12/19 15:22 08/20/19 01:14 Amlodipine Besylate (Norvasc) 10 mg DAILY ORAL 08/16/19 09:00 08/25/19 17:59 08/24/19 08:51 Bethanechol Chloride (Urecholine) 50 mg THREE TIMES A DAY ORAL 08/16/19 09:00 09/01/19 13:59 08/24/19 08:52 Bisacodyl (Dulcolax) 10 mg DAILYPRN PRN RECTAL Constipation 08/16/19 15:30 09/12/19 15:22 08/17/19 03:21 Chlorhexidine Gluconate (Caity-Hex 2%) 1 applic DAILY@2000 TOPIC 08/21/19 20:00 09/20/19 19:59 08/23/19 20:43 Clonidine HCl (Catapres tab) 0.2 mg Q2H PRN ORAL sbp>170 08/16/19 03:30 09/12/19 15:23 08/19/19 08:45 Finasteride (Proscar) 5 mg DAILY ORAL 08/16/19 09:00 08/27/19 08:59 08/24/19 08:51 Folic Acid (Folate) 1 mg DAILY ORAL 08/16/19 09:00 09/05/19 08:59 08/24/19 08:51 Haloperidol Lactate (Haldol) 2.5 mg Q6H PRN IM Agitation 08/16/19 06:15 09/14/19 12:14 08/19/19 20:27 Heparin Sodium (Porcine) (Heparin 5000 units/ml) 5,000 units EVERY 12 HOURS SUBQ 08/16/19 09:00 08/31/19 20:59 08/24/19 08:53 Hydralazine HCl (Apresoline) 100 mg Q8HR ORAL 08/16/19 14:00 09/15/19 13:59 08/24/19 05:07 Penicillin G Potassium 3 mu/ Sodium Chloride 55 ml @ 110 mls/hr Q4HR IVPB 08/19/19 17:00 08/29/19 16:59 08/24/19 09:10 Quetiapine Fumarate (SEROqueL) 25 mg Q6H PRN ORAL For Anxiety 08/16/19 03:30 09/12/19 15:23 08/22/19 21:54 Tamsulosin HCl (Flomax) 0.4 mg BID ORAL 08/16/19 09:00 08/26/19 17:59 08/24/19 08:51 Laboratory Tests 08/24/19 05:35: Sodium Level 146H, Potassium Level 4.6, Chloride Level 110H, Carbon Dioxide Level 23, Anion Gap 13, Blood Urea Nitrogen 27H, Creatinine 2.0H, Estimat Glomerular Filtration Rate , Glucose Level 116H, Calcium Level 9.0 Height (Feet): 5 Height (Inches): 5.00 Weight (Pounds): 176 Objective exam stable dickson indwelling Kali Serrano MD Aug 24, 2019 09:44
--- NOTE | 2019-08-24 10:42 | Nephrology Progress Note ---
Assessment/Plan Problem List: (1) Hypertension, benign (2) Toxic metabolic encephalopathy (3) Gait abnormality (4) Rhabdomyolysis (5) JERMAINE (acute kidney injury) (6) Dehydration (7) Episode of generalized weakness (8) Bacteremia due to Staphylococcus (9) CKD (chronic kidney disease) stage 3, GFR 30-59 ml/min (10) Urinary retention Plan f/u lab, , mobilize, try to get coop to po meds po intake borderline adequate, 1250 po last 24 hr, repeat lab stable trend lab Subjective ROS Limited/Unobtainable: Yes Objective Objective Last 24 Hour Vital Signs Date Time Temp Pulse Resp B/P (MAP) Pulse Ox O2 Delivery O2 Flow Rate FiO2 08/24/19 09:00 Room Air 08/24/19 08:51 99 149/70 08/24/19 08:00 98.1 99 20 149/70 (96) 98 08/24/19 05:07 154/83 08/24/19 04:00 97.9 85 21 154/83 (106) 96 08/24/19 00:00 98.0 72 20 150/72 (98) 95 08/23/19 21:27 135/70 08/23/19 20:52 Room Air 08/23/19 20:00 98.6 78 20 143/71 (95) 96 08/23/19 16:00 98.4 77 18 129/74 (92) 98 08/23/19 13:35 136/80 08/23/19 12:00 97.5 80 18 136/80 (98) 99 Intake and Output 08/23/19 08/24/19 19:00 07:00 Intake Total 1130 ml 450 ml Output Total 800 ml 1000 ml Balance 330 ml -550 ml Intake Oral 800 ml 450 ml IV Total 330 ml Output Urine Total 800 ml 1000 ml # Bowel Movements 1 Laboratory Tests 08/24/19 05:35: Sodium Level 146H, Potassium Level 4.6, Chloride Level 110H, Carbon Dioxide Level 23, Anion Gap 13, Blood Urea Nitrogen 27H, Creatinine 2.0H, Estimat Glomerular Filtration Rate , Glucose Level 116H, Calcium Level 9.0 Height (Feet): 5 Height (Inches): 5.00 Weight (Pounds): 176 General Appearance: no apparent distress, alert, confused EENT: normal ENT inspection Neck: normal alignment Cardiovascular: normal rate, regular rhythm Respiratory/Chest: lungs clear, normal breath sounds Abdomen: non tender, soft 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
[2019-08-24] MEDS: Haloperidol 5mg/ml Inj IM PRN (11:14)
[2019-08-24 12:00] VITALS: BP 137/85
--- NOTE | 2019-08-24 13:47 | Neurology Progress Note ---
Interim History Interim History Interim History Mr. Reji Au is a 79-year-old, right-handed, black gentleman, who has a relatively benign past history. He was brought to the hospital on 07/21/2019 after he had apparently fallen down and was on the floor of his apartment for 4 days. He himself has no recollection of what happened. Since he has been here he has been noted to have some gait problems. He continues to be bright and communicative today. He follows commands well. The mind is clear. He says that his appetite has been very good, he is waiting for someone to give him his lunch. He feels generally stronger. He denies any new neurological symptoms. Objective Physical Exam Last Vital Signs Date Time Temp Pulse Resp B/P (MAP) Pulse Ox O2 Delivery O2 Flow Rate FiO2 08/24/19 12:00 98.0 89 20 137/85 (102) 96 08/24/19 09:00 Room Air Laboratory Tests Test 08/24/19 05:35 Sodium Level 146 MMOL/L (136-145) H Potassium Level 4.6 MMOL/L (3.5-5.1) Chloride Level 110 MMOL/L (98-107) H Carbon Dioxide Level 23 MMOL/L (21-32) Anion Gap 13 mmol/L (5-15) Blood Urea Nitrogen 27 mg/dL (7-18) H Creatinine 2.0 MG/DL (0.55-1.30) H Estimat Glomerular Filtration Rate mL/min (>60) Glucose Level 116 MG/DL (74-106) H Calcium Level 9.0 MG/DL (8.5-10.1) Neurologic Exam Objective PHYSICAL EXAMINATION: GENERAL: He is a well-developed, relatively well-nourished, Black gentleman, lying in bed in no acute distress. HEAD: Normocephalic and atraumatic. NECK: No neck rigidity was observed. EENT examination: Benign. NEUROLOGICAL EXAMINATION: Mental status examination: He was awake and alert. He was [place] [facility] [place] He was able to recall 3/3 words immediately but could not remember them after 1 and 3 minutes. He was able to remember presidents Trump and Pascual Fred only when first names were given to him. His mathematical skills were impaired. His visuospatial function was also impaired. Frontal systems tasks: He was unable to perform Luria's hand sequences. Speech: He had no dysarthria. Language: He was able to comprehend and express himself. Cranial nerve examination: II: The visual kang were intact on confrontation. III, IV & : The external ocular movements were full. The pupils were 3 mm in diameter and reactive sluggishly to light. V-VII: The corneal reflexes were equal bilaterally. He had a trace right seventh central facial paresis. VIII: He was able to hear and had no nystagmus. IX: The palate moved symmetrically on phonation. X: He had no hoarseness of voice. XI: The sternocleidomastoids and trapezii functioned. XII: The tongue was in the midline. Motor system: The tone was normal in all 4 extremities. Examination of muscle mass revealed no focal wasting. 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 Sensory examination: He was able to localize light touch. Reflexes: 2+ and bilaterally symmetrical at the biceps, triceps, brachioradialis and knees. 0 at both ankles. The plantar responses were flexor. Coordination: He performed well on [id number] testing. Stance: Deferred. Gait: Deferred. Impression/Recommendations Diagnostic Impression DIAGNOSTIC IMPRESSION: 1. Mr. Reji Au is a 79-year-old, right-handed, black gentleman, who has a relatively benign past history. He was brought to the hospital on 07/21/2019 after he had apparently fallen down and was on the floor of his apartment for 4 days. He himself has no recollection of what happened. Since he has been here he has been noted to have some gait problems. 2. He continues to be bright and communicative. He follows commands well. The mind is clear. He says that his appetite has been very good, he is waiting for someone to give him his lunch. He feels generally stronger. He denies any new neurological symptoms. 3. On neurological examination, at this time, he is awake and alert. He is oriented to self, [facility] [place] He is able to recall 3/3 words immediately but cannot remember them after 1 and 3 minutes. He is able to remember presidents [employer] through [employer] only when first names were given to him. His mathematical skills are impaired. His visuospatial function is also impaired. He is unable to perform Luria's hand sequences. He has no dysarthria. He is able to comprehend and express himself. He has a trace right seventh central facial paresis. He however does not demonstrate any other lateralizing findings on his motor, sensory, or reflex examination. 4. Laboratory data on my initial evaluation revealed that he was anemic with a hemoglobin of 11.5 G. His latest BUN was 42 and latest creatinine is 2.3. When he came in his CK was 2257 and it had normalized to 241. He was folic acid deficient with a folic acid level of 7.5. His RPR was positive in a low titre of 1:1. The FTA-ABS is reactive. 5. The urine analysis performed today reveals 3+ leukocyte esterase, 5-10 red blood cells and too numerous to count white blood cells per high-power field. 6. The MRI scan of the brain performed on 08/05/2019 revealed multiple acute infarcts involving both cerebral hemispheres, basal ganglia, and the left cerebellum. In addition multiple old small infarcts scattered in the brain were also seen. 7. The MRI scan of the brain repeated on 08/12/2019 revealed multiple new acute infarctions in multiple different vascular territories. 8. A CT of the brain revealed atrophy, deep white matter changes and old infarcts but no acute pathology. 9. Prolonged cardiac monitoring has revealed no arrhythmia. 10. The patient's history, neurological examination, laboratory data, and imaging studies, are most consistent with multiple showers of emboli to the brain over multiple different time periods. Leading to significant neurological dysfunction. 11. Patient also has a positive peripheral RPR and FTA-ABS. This is indicative of exposure to syphilis. Neurosyphilis could not be excluded as a LP could not be performed. However he is being treated for it. 12. His recent decline in neurological function may be related to the acute urinary tract infection in addition to all the other problems that he has. He is well behaved today. Recommendations RECOMMENDATIONS: 1. Continue present management. 2. LESA - whenever! 3. Continue physical and occupational therapy to mobilize patient. 4. Aggressive treatment of acute infectious process. 5. Folic acid 1 mg daily for folate deficiency. 6. Observe closely. Beka Smith M.D., M.S.P.H. Neurologist & Clinical Neurophysiologist Beka Smith MD Aug 24, 2019 13:47
--- NOTE | 2019-08-24 13:57 | Infectious Diseases Prog Note ---
Assessment/Plan Problems: (1) Leukocytosis Assessment & Plan: suspect dehydration related with negative repeated blood culture x2 , monitor labs , monitor clinically (2) Fever Assessment & Plan: resolved , source suspect CAUTI with morganella morganii , received zosyn for 6 days , CXR was negative for any infiltrates, blood culture x2 was negative , now on penicillin G iv for 10 DAYS to cover for possible neurosyphillis (3) Positive RPR test Assessment & Plan: with low titer and reactive FTA-ABS , rule out neurosyphilis , LP was NOT done since he was altered as per radiologist . TPPA serum is pending . screening for HIV is negative . 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 repeated blood cultures so far have been negative, with negative JOHN, and RF screening , recommend LESA to better evaluate his valves . doesn't meet criteria for infectious endocarditis. on Penicillin to treat for possible neurosyphillis (5) CKD (chronic kidney disease) stage 3, GFR 30-59 ml/min Assessment & Plan: avoid nephrotoxics, close monitoring of renal function, follow up with nephrology (6) Failure to thrive in adult Assessment & Plan: etiology? dementia possibly, screening for HIV is negative , may need placement (7) Encephalopathy acute Assessment & Plan: improving now, suspect recurrent CVA, VS meds side effect , VS metabolic. already on antibiotics to cover for possible neurosyphillis . neurology is following (8) Urinary retention Assessment & Plan: S/P dickson catheter placement , urology is following Subjective Constitutional: Reports: no symptoms HEENT: Reports: no symptoms Respiratory: Reports: no symptoms Breasts: Reports: no symptoms Cardiovascular: Reports: no symptoms Gastrointestinal/Abdominal: Reports: no symptoms Genitourinary: Reports: no symptoms Neurologic: Reports: no symptoms Psychiatric: Reports: no symptoms Skin: Reports: no symptoms Endocrine: Reports: no symptoms Hematologic: Reports: no symptoms Musculoskeletal: Reports: no symptoms Allergies: Coded Allergies: No Known Allergies (Unverified , 07/21/19) Subjective He was lying in bed , more awake and alert, follows verbal commands , no cough or SOB, no nausea or vomiting , no diarrhea , had Dickson catheter placed in on , with cloudy urine in it Objective Vital Signs Last 24 Hour Vital Signs Date Time Temp Pulse Resp B/P (MAP) Pulse Ox O2 Delivery O2 Flow Rate FiO2 08/24/19 12:00 98.0 89 20 137/85 (102) 96 08/24/19 09:00 Room Air 08/24/19 08:51 99 149/70 08/24/19 08:00 98.1 99 20 149/70 (96) 98 08/24/19 05:07 154/83 08/24/19 04:00 97.9 85 21 154/83 (106) 96 08/24/19 00:00 98.0 72 20 150/72 (98) 95 08/23/19 21:27 135/70 08/23/19 20:52 Room Air 08/23/19 20:00 98.6 78 20 143/71 (95) 96 08/23/19 16:00 98.4 77 18 129/74 (92) 98 Height (Feet): 5 Height (Inches): 5.00 Weight (Pounds): 176 General Appearance: WD/WN, no acute distress HEENT: normocephalic, atraumatic, anicteric, mucous membranes moist, PERRL Respiratory/Chest: chest wall non-tender, lungs clear, normal breath sounds, no respiratory distress, no accessory muscle use Cardiovascular: normal peripheral pulses, normal rate, regular rhythm, no gallop/murmur, no JVD Abdomen: normal bowel sounds, soft, non tender, no organomegaly, non distended , no mass, no scars Genitourinary: normal external genitalia Extremities: no cyanosis, no clubbing Skin: no rash, no lesions, no ulcers Neurologic/Psychiatric: fruit peeler II-XII grossly normal, alert, responsive Lymphatic: no neck adenopathy, no groin adenopathy Musculoskeletal: normal muscle bulk, no effusion Microbiology Date/Time Source Procedure Growth Status 08/21/19 15:29 Blood Blood Culture - Preliminary NO GROWTH AFTER 48 HOURS Resulted 08/21/19 15:25 Blood Blood Culture - Preliminary NO GROWTH AFTER 48 HOURS Resulted Laboratory Tests Test 08/24/19 05:35 Sodium Level 146 MMOL/L (136-145) H Potassium Level 4.6 MMOL/L (3.5-5.1) Chloride Level 110 MMOL/L (98-107) H Carbon Dioxide Level 23 MMOL/L (21-32) Anion Gap 13 mmol/L (5-15) Blood Urea Nitrogen 27 mg/dL (7-18) H Creatinine 2.0 MG/DL (0.55-1.30) H Estimat Glomerular Filtration Rate mL/min (>60) Glucose Level 116 MG/DL (74-106) H Calcium Level 9.0 MG/DL (8.5-10.1) Current Medications Medications (Trade) Dose Ordered Sig/Hanh Route PRN Reason Start Time Stop Time Status Last Admin Dose Admin Acetaminophen (Tylenol) 650 mg Q6H PRN ORAL Mild Pain/Temp > 100.5 08/16/19 03:30 09/12/19 15:22 08/20/19 01:14 Amlodipine Besylate (Norvasc) 10 mg DAILY ORAL 08/16/19 09:00 08/25/19 17:59 08/24/19 08:51 Bethanechol Chloride (Urecholine) 50 mg THREE TIMES A DAY ORAL 08/16/19 09:00 09/01/19 13:59 08/24/19 08:52 Bisacodyl (Dulcolax) 10 mg DAILYPRN PRN RECTAL Constipation 08/16/19 15:30 09/12/19 15:22 08/17/19 03:21 Chlorhexidine Gluconate (Caity-Hex 2%) 1 applic DAILY@2000 TOPIC 08/21/19 20:00 09/20/19 19:59 08/23/19 20:43 Clonidine HCl (Catapres tab) 0.2 mg Q2H PRN ORAL sbp>170 08/16/19 03:30 09/12/19 15:23 08/19/19 08:45 Finasteride (Proscar) 5 mg DAILY ORAL 08/16/19 09:00 08/27/19 08:59 08/24/19 08:51 Folic Acid (Folate) 1 mg DAILY ORAL 08/16/19 09:00 09/05/19 08:59 08/24/19 08:51 Haloperidol Lactate (Haldol) 2.5 mg Q6H PRN IM Agitation 08/16/19 06:15 09/14/19 12:14 08/24/19 11:14 Heparin Sodium (Porcine) (Heparin 5000 units/ml) 5,000 units EVERY 12 HOURS SUBQ 08/16/19 09:00 08/31/19 20:59 08/24/19 08:53 Hydralazine HCl (Apresoline) 100 mg Q8HR ORAL 08/16/19 14:00 09/15/19 13:59 08/24/19 05:07 Penicillin G Potassium 3 mu/ Sodium Chloride 55 ml @ 110 mls/hr Q4HR IVPB 08/19/19 17:00 08/29/19 16:59 08/24/19 09:10 Quetiapine Fumarate (SEROqueL) 25 mg Q6H PRN ORAL For Anxiety 08/16/19 03:30 09/12/19 15:23 08/22/19 21:54 Tamsulosin HCl (Flomax) 0.4 mg BID ORAL 08/16/19 09:00 08/26/19 17:59 08/24/19 08:51 Anastasia Lion M.D. Aug 24, 2019 13:57
[2019-08-24 16:00] VITALS: BP 153/65
[2019-08-24 16:43] LABS: HEMATOCRIT 29.9 % (42.0-52.0); HEMOGLOBIN 9.5 G/DL (14.2-18.0); LYMPHOCYTES % (AUTO) 6.8 % (20.0-45.0); MEAN CORPUSCULAR VOLUME 98 FL (80-99); MONOCYTES % (AUTO) 9.3 % (1.0-10.0); NEUTROPHILS % (AUTO) 77.7 % (45.0-75.0); PLATELET COUNT 392 K/UL (150-450); RED BLOOD COUNT 3.04 M/UL (4.70-6.10); RED CELL DISTRIBUTION WIDTH 13.5 % (11.6-14.8); WHITE BLOOD COUNT 10.4 K/UL (4.8-10.8)
[2019-08-24 16:44] LABS: BASOPHILS % (AUTO) 3.1 % (0.0-2.0)
[2019-08-24 17:37] LABS: ALANINE AMINOTRANSFERASE 52 U/L (12-78); ALBUMIN/GLOBULIN RATIO 0.7 (1.0-2.7); ALKALINE PHOSPHATASE 73 U/L (46-116); ANION GAP 12 mmol/L (5-15); ASPARTATE AMINO TRANSFERASE 34 U/L (15-37); BILIRUBIN,TOTAL 0.3 MG/DL (0.2-1.0); BLOOD UREA NITROGEN 32 mg/dL (7-18); CALCIUM 8.8 MG/DL (8.5-10.1); CARBON DIOXIDE 23 MMOL/L (21-32); CHLORIDE 109 MMOL/L (98-107); CREATININE 2.1 MG/DL (0.55-1.30); POTASSIUM 4.4 MMOL/L (3.5-5.1); SODIUM 144 MMOL/L (136-145)
--- NOTE | 2019-08-24 18:26 | NUR ---
NURSE NOTES: The 1700 Penicillin G IVPB wasn't hunged due to closer to the next dose; patient pulled the IV access out and the 1300 IVPB hunged 1556 and I spoke to pharmacy Laisha regarding this matter;
--- NOTE | 2019-08-24 19:30 | NUR ---
HAND-OFF: Report given to ARELY Carolina.
--- NOTE | 2019-08-24 19:33 | NUR ---
NURSE NOTES: Patient in bed sleeping. IV L FA 22g intact and patent. On room air with no signs of distress or SOB. Bilateral soft wrist restraints in progress. Bed locked and in lowest position. Bed alarm on. Will continue to monitor.
--- NOTE | 2019-08-24 19:44 | Pulmonology Progress Note ---
Assessment/Plan Assessment/Plan Pulmonary Progress Note Assessment/Plan Problems: (1) Rhabdomyolysis (2) JERMAINE (acute kidney injury) (3) Dehydration (4) Episode of generalized weakness (5) Weakness (6) Gait abnormality (7) Failure to thrive in adult (8) Hypertension, benign (9) Toxic metabolic encephalopathy (10) Bacteremia due to Staphylococcus (11) Positive RPR test (12) CVA (cerebral vascular accident) (13) Syphilis Assessment/Plan 1. Acute and chronic CVA, likely embolic 2. AMS, 2/2 above 3. 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 Dehydration/rhabdomyolysis/lactic acidosis - Improved 5. Hyperproteinemia, possible myeloma 6. Hypertension 7. JERMAINE vs CKD, likely both 8. Obstructive uropathy 9. Generalized weakness 10. Anemia, FOBT neg PLAN: LESA pending Abx per ID: PCN G Per IR unable to do LP QT ok, Haldol 2.5 q6 PRN IM, Seroquel PO if able BP control PT/OT DVT Px: Hep SQ Dispo planning to SNF once acute issues resolved Subjective Allergies: Coded Allergies: No Known Allergies (Unverified , 07/21/19) Subjective LESA not done 2/2 no IV! NAEO More alert No F/C/CP/SOB Objective Vital Signs Noted General Appearance: no acute distress, cachetic HEENT: normocephalic, atraumatic, anicteric, mucous membranes moist Respiratory/Chest: chest wall non-tender, lungs clear, normal breath sounds, no respiratory distress, no accessory muscle use Cardiovascular: normal peripheral pulses, normal rate, regular rhythm Abdomen: normal bowel sounds, soft, non tender, no organomegaly, non distended , no mass Extremities: no cyanosis, no clubbing, no edema Laboratory Tests 08/20/19 16:03: White Blood Count 11.3H, Red Blood Count 3.07L, Hemoglobin 9.6L, Hematocrit 28.3L, Mean Corpuscular Volume 92, Mean Corpuscular Hemoglobin 31.3H, Mean Corpuscular Hemoglobin Concent 34.0, Red Cell Distribution Width 12.1, Platelet Count 406, Mean Platelet Volume 5.8L, Neutrophils (%) (Auto) 65.9, Lymphocytes ( %) (Auto) 16.2L, Monocytes (%) (Auto) 9.2, Eosinophils (%) (Auto) 6.3H, Basophils (%) (Auto) 2.4H, Sodium Level 144, Potassium Level 3.7, Chloride Level 109H, Carbon Dioxide Level 22, Anion Gap 13, Blood Urea Nitrogen 25H, Creatinine 1.8H, Estimat Glomerular Filtration Rate , Glucose Level 119H, Calcium Level 8.5, Total Bilirubin 0.8, Aspartate Amino Transf (AST/SGOT) 27, Alanine Aminotransferase (ALT/SGPT) 34, Alkaline Phosphatase 66, Total Protein 6.8, Albumin 3.0L, Globulin 3.8, Albumin/Globulin Ratio 0.8L 08/21/19 05:05: Sodium Level 144, Potassium Level 4.4, Chloride Level 108H, Carbon Dioxide Level 22, Anion Gap 14, Blood Urea Nitrogen 29H, Creatinine 1.9H, Estimat Glomerular Filtration Rate , Glucose Level 108H, Calcium Level 9.0 Current Medications Medications (Trade) Dose Ordered Sig/Hanh Route PRN Reason Start Time Stop Time Status Last Admin Dose Admin Acetaminophen (Tylenol) 650 mg Q6H PRN ORAL Mild Pain/Temp > 100.5 08/16/19 03:30 09/12/19 15:22 08/20/19 01:14 Amlodipine Besylate (Norvasc) 10 mg DAILY ORAL 08/16/19 09:00 08/25/19 17:59 08/20/19 09:04 Bethanechol Chloride (Urecholine) 50 mg THREE TIMES A DAY ORAL 08/16/19 09:00 09/01/19 13:59 08/20/19 18:04 Bisacodyl (Dulcolax) 10 mg DAILYPRN PRN RECTAL Constipation 08/16/19 15:30 09/12/19 15:22 08/17/19 03:21 Clonidine HCl (Catapres TTS-3) 1 patch QWEEK TDERMAL 08/19/19 12:00 08/21/19 11:59 08/19/19 12:31 Clonidine HCl (Catapres tab) 0.2 mg Q2H PRN ORAL sbp>170 08/16/19 03:30 09/12/19 15:23 08/19/19 08:45 Dextrose/Sodium Chloride 1,000 ml @ 75 mls/hr [id number] IV 08/16/19 16:00 09/15/19 15:59 08/21/19 04:00 Finasteride (Proscar) 5 mg DAILY ORAL 08/16/19 09:00 08/27/19 08:59 08/20/19 08:58 Folic Acid (Folate) 1 mg DAILY ORAL 08/16/19 09:00 09/05/19 08:59 08/20/19 08:58 Haloperidol Lactate (Haldol) 2.5 mg Q6H PRN IM Agitation 08/16/19 06:15 09/14/19 12:14 08/19/19 20:27 Heparin Sodium (Porcine) (Heparin 5000 units/ml) 5,000 units EVERY 12 HOURS SUBQ 08/16/19 09:00 08/31/19 20:59 08/20/19 20:46 Hydralazine HCl (Apresoline) 100 mg Q8HR ORAL 08/16/19 14:00 09/15/19 13:59 08/21/19 05:41 Penicillin G Potassium 3 mu/ Sodium Chloride 55 ml @ 110 mls/hr Q4HR IVPB 08/19/19 17:00 08/29/19 16:59 08/21/19 09:17 Quetiapine Fumarate (SEROqueL) 25 mg Q6H PRN ORAL For Anxiety 08/16/19 03:30 09/12/19 15:23 Tamsulosin HCl (Flomax) 0.4 mg BID ORAL 08/16/19 09:00 08/26/19 17:59 08/20/19 18:02 Subjective ROS Limited/Unobtainable: No Allergies: Coded Allergies: No Known Allergies (Unverified , 07/21/19) Objective Last 24 Hour Vital Signs Date Time Temp Pulse Resp B/P (MAP) Pulse Ox O2 Delivery O2 Flow Rate FiO2 08/24/19 16:00 97.9 80 18 153/65 (94) 95 08/24/19 14:50 137/85 08/24/19 12:00 98.0 89 20 137/85 (102) 96 08/24/19 09:00 Room Air 08/24/19 08:51 99 149/70 08/24/19 08:00 98.1 99 20 149/70 (96) 98 08/24/19 05:07 154/83 08/24/19 04:00 97.9 85 21 154/83 (106) 96 08/24/19 00:00 98.0 72 20 150/72 (98) 95 08/23/19 21:27 135/70 08/23/19 20:52 Room Air 08/23/19 20:00 98.6 78 20 143/71 (95) 96 Intake and Output 08/23/19 08/24/19 19:00 07:00 Intake Total 1130 ml 450 ml Output Total 800 ml 1000 ml Balance 330 ml -550 ml Intake Oral 800 ml 450 ml IV Total 330 ml Output Urine Total 800 ml 1000 ml # Bowel Movements 1 Laboratory Tests 08/24/19 05:35: Sodium Level 146H, Potassium Level 4.6, Chloride Level 110H, Carbon Dioxide Level 23, Anion Gap 13, Blood Urea Nitrogen 27H, Creatinine 2.0H, Estimat Glomerular Filtration Rate , Glucose Level 116H, Calcium Level 9.0 08/24/19 16:00: Sodium Level 144, Potassium Level 4.4, Chloride Level 109H, Carbon Dioxide Level 23, Anion Gap 12, Blood Urea Nitrogen 32H, Creatinine 2.1H, Estimat Glomerular Filtration Rate , Glucose Level 140H, Calcium Level 8.8, White Blood Count 10.4, Red Blood Count 3.04L, Hemoglobin 9.5L, Hematocrit 29.9L, Mean Corpuscular Volume 98, Mean Corpuscular Hemoglobin 31.2H, Mean Corpuscular Hemoglobin Concent 31.8L, Red Cell Distribution Width 13.5, Platelet Count 392, Mean Platelet Volume 7.3, Neutrophils (%) (Auto) 77.7H, Lymphocytes (%) (Auto) 6.8L, Monocytes (%) (Auto) 9.3, Eosinophils (%) (Auto) 3.0, Basophils (%) (Auto ) 3.1H, Total Bilirubin 0.3, Aspartate Amino Transf (AST/SGOT) 34, Alanine Aminotransferase (ALT/SGPT) 52, Alkaline Phosphatase 73, Total Protein 7.1, Albumin 3.0L, Globulin 4.1, Albumin/Globulin Ratio 0.7L Current Medications Medications (Trade) Dose Ordered Sig/Hanh Route PRN Reason Start Time Stop Time Status Last Admin Dose Admin Acetaminophen (Tylenol) 650 mg Q6H PRN ORAL Mild Pain/Temp > 100.5 08/16/19 03:30 09/12/19 15:22 08/20/19 01:14 Amlodipine Besylate (Norvasc) 10 mg DAILY ORAL 08/16/19 09:00 08/25/19 17:59 08/24/19 08:51 Bethanechol Chloride (Urecholine) 50 mg THREE TIMES A DAY ORAL 08/16/19 09:00 09/01/19 13:59 08/24/19 17:20 Bisacodyl (Dulcolax) 10 mg DAILYPRN PRN RECTAL Constipation 08/16/19 15:30 09/12/19 15:22 08/17/19 03:21 Chlorhexidine Gluconate (Caity-Hex 2%) 1 applic DAILY@2000 TOPIC 08/21/19 20:00 09/20/19 19:59 08/23/19 20:43 Clonidine HCl (Catapres tab) 0.2 mg Q2H PRN ORAL sbp>170 08/16/19 03:30 09/12/19 15:23 08/19/19 08:45 Finasteride (Proscar) 5 mg DAILY ORAL 08/16/19 09:00 08/27/19 08:59 08/24/19 08:51 Folic Acid (Folate) 1 mg DAILY ORAL 08/16/19 09:00 09/05/19 08:59 08/24/19 08:51 Haloperidol Lactate (Haldol) 2.5 mg Q6H PRN IM Agitation 08/16/19 06:15 09/14/19 12:14 08/24/19 11:14 Heparin Sodium (Porcine) (Heparin 5000 units/ml) 5,000 units EVERY 12 HOURS SUBQ 08/16/19 09:00 08/31/19 20:59 08/24/19 08:53 Hydralazine HCl (Apresoline) 100 mg Q8HR ORAL 08/16/19 14:00 09/15/19 13:59 08/24/19 14:50 Penicillin G Potassium 3 mu/ Sodium Chloride 55 ml @ 110 mls/hr Q4HR IVPB 08/19/19 17:00 08/29/19 16:59 08/24/19 15:56 Quetiapine Fumarate (SEROqueL) 25 mg Q6H PRN ORAL For Anxiety 08/16/19 03:30 09/12/19 15:23 08/22/19 21:54 Tamsulosin HCl (Flomax) 0.4 mg BID ORAL 08/16/19 09:00 08/26/19 17:59 08/24/19 17:19 Varghese Mattson MD Aug 24, 2019 19:44
[2019-08-24 20:00] VITALS: BP 134/70
[2019-08-24] MEDS: Dyna-Hex 2% Top Sol 2oz TOPIC SCH (21:21)
[2019-08-25] VITALS: BP 145/74
[2019-08-25] MEDS: NS IVPB SCH ×6 (00:17→20:51)
[2019-08-25] MEDS: PENICILLIN POTASSIUM MU IVPB SCH ×6 (00:17→20:51)
[2019-08-25 04:00] VITALS: BP 149/80
[2019-08-25] MEDS: HydrALAZINE 50mg tab ORAL SCH ×3 (05:25→20:52)
--- NOTE | 2019-08-25 07:13 | NUR ---
HAND-OFF: Report given to ARELY Kuo.
--- NOTE | 2019-08-25 07:17 | NUR ---
NURSE NOTES: Patient alert x2, confused; on Bilateral Soft Wrist Restrain; IV Left For-Arm 22G TKO; Walsh in place, drains yellow urine; side rails up x2, breaks engaged, bed at lowest position, bed alarm on; call light within reach; will keep monitoring.
[2019-08-25 08:00] VITALS: BP 118/98
[2019-08-25] MEDS: Tamsulosin 0.4mg cap ORAL SCH ×2 (08:24→17:16)
[2019-08-25] MEDS: Bethanechol 25mg Tab ORAL SCH ×3 (08:25→17:16)
[2019-08-25] MEDS: Heparin 5000 units/ml inj SUBQ SCH ×2 (08:27→20:52)
--- NOTE | 2019-08-25 11:15 | Neurology Progress Note ---
Interim History Interim History Interim History Mr. Reji Au is a 79-year-old, right-handed, black gentleman, who has a relatively benign past history. He was brought to the hospital on 07/21/2019 after he had apparently fallen down and was on the floor of his apartment for 4 days. He himself has no recollection of what happened. Since he has been here he has been noted to have some gait problems. He continues to be bright and communicative. He follows commands well. The mind is clear. He says that his appetite has been very good. He feels generally stronger. He is still kept in bed all day and is getting deconditioned. He denies any new neurological symptoms. Review of Systems Neuro Review of Systems Benign. Objective Physical Exam Last Vital Signs Date Time Temp Pulse Resp B/P (MAP) Pulse Ox O2 Delivery O2 Flow Rate FiO2 08/25/19 09:00 Room Air 08/25/19 08:24 97 118/98 08/25/19 08:00 98.3 20 98 Laboratory Tests Test 08/24/19 16:00 White Blood Count 10.4 K/UL (4.8-10.8) Red Blood Count 3.04 M/UL (4.70-6.10) L Hemoglobin 9.5 G/DL (14.2-18.0) L Hematocrit 29.9 % (42.0-52.0) L Mean Corpuscular Volume 98 FL (80-99) Mean Corpuscular Hemoglobin 31.2 PG (27.0-31.0) H Mean Corpuscular Hemoglobin Concent 31.8 G/DL (32.0-36.0) L Red Cell Distribution Width 13.5 % (11.6-14.8) Platelet Count 392 K/UL (150-450) Mean Platelet Volume 7.3 FL (6.5-10.1) Neutrophils (%) (Auto) 77.7 % (45.0-75.0) H Lymphocytes (%) (Auto) 6.8 % (20.0-45.0) L Monocytes (%) (Auto) 9.3 % (1.0-10.0) Eosinophils (%) (Auto) 3.0 % (0.0-3.0) Basophils (%) (Auto) 3.1 % (0.0-2.0) H Sodium Level 144 MMOL/L (136-145) Potassium Level 4.4 MMOL/L (3.5-5.1) Chloride Level 109 MMOL/L (98-107) H Carbon Dioxide Level 23 MMOL/L (21-32) Anion Gap 12 mmol/L (5-15) Blood Urea Nitrogen 32 mg/dL (7-18) H Creatinine 2.1 MG/DL (0.55-1.30) H Estimat Glomerular Filtration Rate mL/min (>60) Glucose Level 140 MG/DL (74-106) H Calcium Level 8.8 MG/DL (8.5-10.1) Total Bilirubin 0.3 MG/DL (0.2-1.0) Aspartate Amino Transf (AST/SGOT) 34 U/L (15-37) Alanine Aminotransferase (ALT/SGPT) 52 U/L (12-78) Alkaline Phosphatase 73 U/L (46-116) Total Protein 7.1 G/DL (6.4-8.2) Albumin 3.0 G/DL (3.4-5.0) L Globulin 4.1 g/dL Albumin/Globulin Ratio 0.7 (1.0-2.7) L Neurologic Exam Objective PHYSICAL EXAMINATION: GENERAL: He is a well-developed, relatively well-nourished, Black gentleman, lying in bed in no acute distress. HEAD: Normocephalic and atraumatic. NECK: No neck rigidity was observed. EENT examination: Benign. NEUROLOGICAL EXAMINATION: Mental status examination: He was awake and alert. He was oriented to self, [facility] and August 2019. He was able to recall 3/3 words immediately but could not remember them after 1 and 3 minutes. He was able to remember presidents [place] through Pascual Fred only when first names were given to him. His mathematical skills were impaired. His visuospatial function was also impaired. Frontal systems tasks: He was unable to perform Luria's hand sequences. Speech: He had no dysarthria. Language: He was able to comprehend and express himself. Cranial nerve examination: II: The visual kang were intact on confrontation. III, IV & : The external ocular movements were full. The pupils were 3 mm in diameter and reactive sluggishly to light. V-VII: The corneal reflexes were equal bilaterally. He had a trace right seventh central facial paresis. VIII: He was able to hear and had no nystagmus. IX: The palate moved symmetrically on phonation. X: He had no hoarseness of voice. XI: The sternocleidomastoids and trapezii functioned. XII: The tongue was in the midline. Motor system: The tone was normal in all 4 extremities. Examination of muscle mass revealed no focal wasting. Examination of power revealed G 5/5 except for G 4/5 in the iliopsoas and G 4+/ 5 in the ankle dorsiflexors bilaterally. Sensory examination: He was able to localize light touch. Reflexes: 2+ and bilaterally symmetrical at the biceps, triceps, brachioradialis and knees. 0 at both ankles. The plantar responses were flexor. Coordination: He performed well on [id number] testing. Stance: Deferred. Gait: Deferred. Impression/Recommendations Diagnostic Impression DIAGNOSTIC IMPRESSION: 1. Mr. Reji Au is a 79-year-old, right-handed, black gentleman, who has a relatively benign past history. He was brought to the hospital on 07/21/2019 after he had apparently fallen down and was on the floor of his apartment for 4 days. He himself has no recollection of what happened. Since he has been here he has been noted to have some gait problems. 2. He continues to be bright and communicative. He follows commands well. The mind is clear. He says that his appetite has been very good. He feels generally stronger. He is still kept in bed all day and is getting deconditioned. He denies any new neurological symptoms. 3. On neurological examination, at this time, he is awake and alert. He is oriented to self, [facility] and August 2019. He is able to recall 3/3 words immediately but cannot remember them after 1 and 3 minutes. He is able to remember presidents Trump through Pascual Jr only when first names were given to him. His mathematical skills are impaired. His visuospatial function is also impaired. He is unable to perform Luria's hand sequences. He has no dysarthria. He is able to comprehend and express himself. He has a trace right seventh central facial paresis. He however does not demonstrate any other lateralizing findings on his motor, sensory, or reflex examination. He however is weak in his legs. 4. Laboratory data on my initial evaluation revealed that he was anemic with a hemoglobin of 11.5 G. His latest BUN was 42 and latest creatinine is 2.3. When he came in his CK was 2257 and it had normalized to 241. He was folic acid deficient with a folic acid level of 7.5. His RPR was positive in a low titre of 1:1. The FTA-ABS is reactive. 5. The urine analysis performed today reveals 3+ leukocyte esterase, 5-10 red blood cells and too numerous to count white blood cells per high-power field. 6. The MRI scan of the brain performed on 08/05/2019 revealed multiple acute infarcts involving both cerebral hemispheres, basal ganglia, and the left cerebellum. In addition multiple old small infarcts scattered in the brain were also seen. 7. The MRI scan of the brain repeated on 08/12/2019 revealed multiple new acute infarctions in multiple different vascular territories. 8. A CT of the brain revealed atrophy, deep white matter changes and old infarcts but no acute pathology. 9. Prolonged cardiac monitoring has revealed no arrhythmia. 10. The patient's history, neurological examination, laboratory data, and imaging studies, are most consistent with multiple showers of emboli to the brain over multiple different time periods. Leading to significant neurological dysfunction. 11. Patient also has a positive peripheral RPR and FTA-ABS. This is indicative of exposure to syphilis. Neurosyphilis could not be excluded as a LP could not be performed. However he is being treated for it. 12. His recent decline in neurological function may be related to the acute urinary tract infection in addition to all the other problems that he has. He has improved since the problem has been treated. Recommendations RECOMMENDATIONS: 1. Continue present management. 2. LESA - whenever! 3. Continue physical and occupational therapy to mobilize patient. 4. Aggressive treatment of acute infectious process. 5. Folic acid 1 mg daily for folate deficiency. 6. Observe closely. Beka Smith M.D., M.S.P.H. Neurologist & Clinical Neurophysiologist Beka Smith MD Aug 25, 2019 11:15
[2019-08-25 12:00] VITALS: BP 127/80
--- NOTE | 2019-08-25 13:00 | Urology Progress Note ---
Assessment/Plan Assessment/Plan: 1. Urinary retention. 2. BPH history. 3. Probable neurogenic bladder. 4. Renal insufficiency acute on chronic. 5. Hematuria. dickson remains indwelling for now, replaced 08/11 secured to pt's leg hand irrigated and do PRN cont with flomax, proscar urecholine dose increased minimize seroquel on abx plan for voiding trial soon cysto later f/u on blood cx Subjective Allergies: Coded Allergies: No Known Allergies (Unverified , 07/21/19) Subjective all noted, no new complaints, dickson indwelling Objective Last 24 Hour Vital Signs Date Time Temp Pulse Resp B/P (MAP) Pulse Ox O2 Delivery O2 Flow Rate FiO2 08/25/19 12:00 97.9 69 17 127/80 (96) 96 08/25/19 09:00 Room Air 08/25/19 08:24 97 118/98 08/25/19 08:00 98.3 97 20 118/98 (105) 98 08/25/19 05:25 149/80 08/25/19 04:00 98.3 84 21 149/80 (103) 96 08/25/19 00:00 97.9 75 20 145/74 (97) 96 08/24/19 21:28 134/70 08/24/19 20:02 Room Air 08/24/19 20:00 98.6 77 20 134/70 (91) 96 08/24/19 16:00 97.9 80 18 153/65 (94) 95 08/24/19 14:50 137/85 Intake and Output 08/24/19 08/25/19 19:00 07:00 Intake Total 720 ml 1250 ml Output Total 350 ml Balance 720 ml 900 ml Intake Oral 450 ml IV Total 220 ml 300 ml Other 500 ml 500 ml Output Urine Total 350 ml # Voids 1 Microbiology Date/Time Source Procedure Growth Status 08/21/19 15:29 Blood Blood Culture - Preliminary NO GROWTH AFTER 72 HOURS Resulted 07/21/19 17:35 Nasal Nares - Final Complete 07/21/19 17:35 Nasal Nares - Final Complete 08/13/19 11:10 Indwelling Cath Urine Culture - Final Morganella Morg Spp Morganii Complete Current Medications Medications (Trade) Dose Ordered Sig/Hanh Route PRN Reason Start Time Stop Time Status Last Admin Dose Admin Acetaminophen (Tylenol) 650 mg Q6H PRN ORAL Mild Pain/Temp > 100.5 08/16/19 03:30 09/12/19 15:22 08/20/19 01:14 Amlodipine Besylate (Norvasc) 10 mg DAILY ORAL 08/16/19 09:00 08/25/19 17:59 08/25/19 08:24 Bethanechol Chloride (Urecholine) 50 mg THREE TIMES A DAY ORAL 08/16/19 09:00 09/01/19 13:59 08/25/19 08:25 Bisacodyl (Dulcolax) 10 mg DAILYPRN PRN RECTAL Constipation 08/16/19 15:30 09/12/19 15:22 08/17/19 03:21 Chlorhexidine Gluconate (Caity-Hex 2%) 1 applic DAILY@2000 TOPIC 08/21/19 20:00 09/20/19 19:59 08/24/19 21:21 Clonidine HCl (Catapres tab) 0.2 mg Q2H PRN ORAL sbp>170 08/16/19 03:30 09/12/19 15:23 08/19/19 08:45 Finasteride (Proscar) 5 mg DAILY ORAL 08/16/19 09:00 08/27/19 08:59 08/25/19 08:30 Folic Acid (Folate) 1 mg DAILY ORAL 08/16/19 09:00 09/05/19 08:59 08/25/19 08:25 Haloperidol Lactate (Haldol) 2.5 mg Q6H PRN IM Agitation 08/16/19 06:15 09/14/19 12:14 08/24/19 11:14 Heparin Sodium (Porcine) (Heparin 5000 units/ml) 5,000 units EVERY 12 HOURS SUBQ 08/16/19 09:00 08/31/19 20:59 08/25/19 08:27 Hydralazine HCl (Apresoline) 100 mg Q8HR ORAL 08/16/19 14:00 09/15/19 13:59 08/25/19 05:25 Penicillin G Potassium 3 mu/ Sodium Chloride 55 ml @ 110 mls/hr Q4HR IVPB 08/19/19 17:00 08/29/19 16:59 08/25/19 08:25 Quetiapine Fumarate (SEROqueL) 25 mg Q6H PRN ORAL For Anxiety 08/16/19 03:30 09/12/19 15:23 08/25/19 08:24 Tamsulosin HCl (Flomax) 0.4 mg BID ORAL 08/16/19 09:00 08/26/19 17:59 08/25/19 08:24 Laboratory Tests 08/24/19 16:00: White Blood Count 10.4, Red Blood Count 3.04L, Hemoglobin 9.5L, Hematocrit 29.9L , Mean Corpuscular Volume 98, Mean Corpuscular Hemoglobin 31.2H, Mean Corpuscular Hemoglobin Concent 31.8L, Red Cell Distribution Width 13.5, Platelet Count 392, Mean Platelet Volume 7.3, Neutrophils (%) (Auto) 77.7H, Lymphocytes (%) (Auto) 6.8L, Monocytes (%) (Auto) 9.3, Eosinophils (%) (Auto) 3.0, Basophils (%) (Auto) 3.1H, Sodium Level 144, Potassium Level 4.4, Chloride Level 109H, Carbon Dioxide Level 23, Anion Gap 12, Blood Urea Nitrogen 32H, Creatinine 2.1H, Estimat Glomerular Filtration Rate , Glucose Level 140H, Calcium Level 8.8, Total Bilirubin 0.3, Aspartate Amino Transf (AST/SGOT) 34, Alanine Aminotransferase (ALT/SGPT) 52, Alkaline Phosphatase 73, Total Protein 7.1, Albumin 3.0L, Globulin 4.1, Albumin/Globulin Ratio 0.7L Height (Feet): 5 Height (Inches): 5.00 Weight (Pounds): 176 Objective exam stable dickson indwelling Kali Serrano MD Aug 25, 2019 13:00
--- NOTE | 2019-08-25 14:34 | Infectious Diseases Prog Note ---
Assessment/Plan Problems: (1) Positive RPR test Assessment & Plan: with low titer and reactive FTA-ABS , rule out neurosyphilis , LP was NOT done since he was altered as per radiologist . TPPA serum is pending . screening for HIV is negative . 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 repeated blood cultures so far have been negative, with negative JOHN, and RF screening , recommend LESA to better evaluate his valves . doesn't meet criteria for infectious endocarditis. on Penicillin to treat for possible neurosyphillis (3) CKD (chronic kidney disease) stage 3, GFR 30-59 ml/min Assessment & Plan: avoid nephrotoxics, close monitoring of renal function, follow up with nephrology (4) Failure to thrive in adult Assessment & Plan: etiology? dementia possibly, screening for HIV is negative , may need placement (5) Encephalopathy acute Assessment & Plan: improving now, suspect recurrent CVA, VS meds side effect , VS metabolic. already on antibiotics to cover for possible neurosyphillis . neurology is following (6) Urinary retention Assessment & Plan: S/P dickson catheter placement , urology is following Subjective Constitutional: Reports: no symptoms HEENT: Reports: no symptoms Respiratory: Reports: no symptoms Breasts: Reports: no symptoms Cardiovascular: Reports: no symptoms Gastrointestinal/Abdominal: Reports: no symptoms Genitourinary: Reports: no symptoms Neurologic: Reports: no symptoms Psychiatric: Reports: no symptoms Skin: Reports: no symptoms Endocrine: Reports: no symptoms Hematologic: Reports: no symptoms Musculoskeletal: Reports: no symptoms Allergies: Coded Allergies: No Known Allergies (Unverified , 07/21/19) Subjective He was lying in bed , more awake and alert, follows verbal commands , no cough or SOB, no nausea or vomiting , no diarrhea , had Dickson catheter placed in on , with cloudy urine in it Objective Vital Signs Last 24 Hour Vital Signs Date Time Temp Pulse Resp B/P (MAP) Pulse Ox O2 Delivery O2 Flow Rate FiO2 08/25/19 13:44 127/80 08/25/19 12:00 97.9 69 17 127/80 (96) 96 08/25/19 09:00 Room Air 08/25/19 08:24 97 118/98 08/25/19 08:00 98.3 97 20 118/98 (105) 98 08/25/19 05:25 149/80 08/25/19 04:00 98.3 84 21 149/80 (103) 96 08/25/19 00:00 97.9 75 20 145/74 (97) 96 08/24/19 21:28 134/70 08/24/19 20:02 Room Air 08/24/19 20:00 98.6 77 20 134/70 (91) 96 08/24/19 16:00 97.9 80 18 153/65 (94) 95 08/24/19 14:50 137/85 Height (Feet): 5 Height (Inches): 5.00 Weight (Pounds): 176 General Appearance: WD/WN, no acute distress HEENT: normocephalic, atraumatic, anicteric, mucous membranes moist, PERRL Respiratory/Chest: chest wall non-tender, lungs clear, normal breath sounds, no respiratory distress, no accessory muscle use Cardiovascular: normal peripheral pulses, normal rate, regular rhythm, no gallop/murmur, no JVD Abdomen: normal bowel sounds, soft, non tender, no organomegaly, non distended , no mass, no scars Genitourinary: normal external genitalia Extremities: no cyanosis, no clubbing Skin: no rash, no lesions, no ulcers Neurologic/Psychiatric: radiology nurse II-XII grossly normal, alert Lymphatic: no neck adenopathy, no groin adenopathy Musculoskeletal: normal muscle bulk, no effusion Laboratory Tests Test 08/24/19 16:00 White Blood Count 10.4 K/UL (4.8-10.8) Red Blood Count 3.04 M/UL (4.70-6.10) L Hemoglobin 9.5 G/DL (14.2-18.0) L Hematocrit 29.9 % (42.0-52.0) L Mean Corpuscular Volume 98 FL (80-99) Mean Corpuscular Hemoglobin 31.2 PG (27.0-31.0) H Mean Corpuscular Hemoglobin Concent 31.8 G/DL (32.0-36.0) L Red Cell Distribution Width 13.5 % (11.6-14.8) Platelet Count 392 K/UL (150-450) Mean Platelet Volume 7.3 FL (6.5-10.1) Neutrophils (%) (Auto) 77.7 % (45.0-75.0) H Lymphocytes (%) (Auto) 6.8 % (20.0-45.0) L Monocytes (%) (Auto) 9.3 % (1.0-10.0) Eosinophils (%) (Auto) 3.0 % (0.0-3.0) Basophils (%) (Auto) 3.1 % (0.0-2.0) H Sodium Level 144 MMOL/L (136-145) Potassium Level 4.4 MMOL/L (3.5-5.1) Chloride Level 109 MMOL/L (98-107) H Carbon Dioxide Level 23 MMOL/L (21-32) Anion Gap 12 mmol/L (5-15) Blood Urea Nitrogen 32 mg/dL (7-18) H Creatinine 2.1 MG/DL (0.55-1.30) H Estimat Glomerular Filtration Rate mL/min (>60) Glucose Level 140 MG/DL (74-106) H Calcium Level 8.8 MG/DL (8.5-10.1) Total Bilirubin 0.3 MG/DL (0.2-1.0) Aspartate Amino Transf (AST/SGOT) 34 U/L (15-37) Alanine Aminotransferase (ALT/SGPT) 52 U/L (12-78) Alkaline Phosphatase 73 U/L (46-116) Total Protein 7.1 G/DL (6.4-8.2) Albumin 3.0 G/DL (3.4-5.0) L Globulin 4.1 g/dL Albumin/Globulin Ratio 0.7 (1.0-2.7) L Current Medications Medications (Trade) Dose Ordered Sig/Hanh Route PRN Reason Start Time Stop Time Status Last Admin Dose Admin Acetaminophen (Tylenol) 650 mg Q6H PRN ORAL Mild Pain/Temp > 100.5 08/16/19 03:30 09/12/19 15:22 08/20/19 01:14 Amlodipine Besylate (Norvasc) 10 mg DAILY ORAL 08/16/19 09:00 08/25/19 17:59 08/25/19 08:24 Bethanechol Chloride (Urecholine) 50 mg THREE TIMES A DAY ORAL 08/16/19 09:00 09/01/19 13:59 08/25/19 13:45 Bisacodyl (Dulcolax) 10 mg DAILYPRN PRN RECTAL Constipation 08/16/19 15:30 09/12/19 15:22 08/17/19 03:21 Chlorhexidine Gluconate (Caity-Hex 2%) 1 applic DAILY@2000 TOPIC 08/21/19 20:00 09/20/19 19:59 08/24/19 21:21 Clonidine HCl (Catapres tab) 0.2 mg Q2H PRN ORAL sbp>170 08/16/19 03:30 09/12/19 15:23 08/19/19 08:45 Finasteride (Proscar) 5 mg DAILY ORAL 08/16/19 09:00 08/27/19 08:59 08/25/19 08:30 Folic Acid (Folate) 1 mg DAILY ORAL 08/16/19 09:00 09/05/19 08:59 08/25/19 08:25 Haloperidol Lactate (Haldol) 2.5 mg Q6H PRN IM Agitation 08/16/19 06:15 09/14/19 12:14 08/24/19 11:14 Heparin Sodium (Porcine) (Heparin 5000 units/ml) 5,000 units EVERY 12 HOURS SUBQ 08/16/19 09:00 08/31/19 20:59 08/25/19 08:27 Hydralazine HCl (Apresoline) 100 mg Q8HR ORAL 08/16/19 14:00 09/15/19 13:59 08/25/19 13:44 Penicillin G Potassium 3 mu/ Sodium Chloride 55 ml @ 110 mls/hr Q4HR IVPB 08/19/19 17:00 08/29/19 16:59 08/25/19 13:45 Quetiapine Fumarate (SEROqueL) 25 mg Q6H PRN ORAL For Anxiety 08/16/19 03:30 09/12/19 15:23 08/25/19 08:24 Tamsulosin HCl (Flomax) 0.4 mg BID ORAL 08/16/19 09:00 08/26/19 17:59 08/25/19 08:24 Anastasia Lion M.D. Aug 25, 2019 14:34
--- NOTE | 2019-08-25 14:35 | NUR ---
*-* INSURANCE *-* UPDATE CLINICALS HAVE BEEN FAXED TO: [facility] [place] OPAL:[employer]O P: [phone] F: [phone]
--- NOTE | 2019-08-25 15:18 | Pulmonology Progress Note ---
Assessment/Plan Assessment/Plan Pulmonary Progress Note Assessment/Plan Problems: (1) Rhabdomyolysis (2) JERMAINE (acute kidney injury) (3) Dehydration (4) Episode of generalized weakness (5) Weakness (6) Gait abnormality (7) Failure to thrive in adult (8) Hypertension, benign (9) Toxic metabolic encephalopathy (10) Bacteremia due to Staphylococcus (11) Positive RPR test (12) CVA (cerebral vascular accident) (13) Syphilis Assessment/Plan 1. Acute and chronic CVA, likely embolic 2. AMS, 2/2 above 3. 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 Dehydration/rhabdomyolysis/lactic acidosis - Improved 5. Hyperproteinemia, possible myeloma 6. Hypertension 7. JERMAINE vs CKD, likely both 8. Obstructive uropathy 9. Generalized weakness 10. Anemia, FOBT neg PLAN: [facility] pending Abx per ID: PCN G Per IR unable to do LP QT ok, Haldol 2.5 q6 PRN IM, Seroquel PO if able BP control PT/OT DVT Px: Hep SQ Dispo planning to SNF once acute issues resolved Subjective Allergies: Coded Allergies: No Known Allergies (Unverified , 07/21/19) Subjective LESA not done 2/2 no IV! NAEO More alert No F/C/CP/SOB Objective Vital Signs Noted General Appearance: no acute distress, cachetic HEENT: normocephalic, atraumatic, anicteric, mucous membranes moist Respiratory/Chest: chest wall non-tender, lungs clear, normal breath sounds, no respiratory distress, no accessory muscle use Cardiovascular: normal peripheral pulses, normal rate, regular rhythm Abdomen: normal bowel sounds, soft, non tender, no organomegaly, non distended , no mass Extremities: no cyanosis, no clubbing, no edema Laboratory Tests 08/20/19 16:03: White Blood Count 11.3H, Red Blood Count 3.07L, Hemoglobin 9.6L, Hematocrit 28.3L, Mean Corpuscular Volume 92, Mean Corpuscular Hemoglobin 31.3H, Mean Corpuscular Hemoglobin Concent 34.0, Red Cell Distribution Width 12.1, Platelet Count 406, Mean Platelet Volume 5.8L, Neutrophils (%) (Auto) 65.9, Lymphocytes ( %) (Auto) 16.2L, Monocytes (%) (Auto) 9.2, Eosinophils (%) (Auto) 6.3H, Basophils (%) (Auto) 2.4H, Sodium Level 144, Potassium Level 3.7, Chloride Level 109H, Carbon Dioxide Level 22, Anion Gap 13, Blood Urea Nitrogen 25H, Creatinine 1.8H, Estimat Glomerular Filtration Rate , Glucose Level 119H, Calcium Level 8.5, Total Bilirubin 0.8, Aspartate Amino Transf (AST/SGOT) 27, Alanine Aminotransferase (ALT/SGPT) 34, Alkaline Phosphatase 66, Total Protein 6.8, Albumin 3.0L, Globulin 3.8, Albumin/Globulin Ratio 0.8L 08/21/19 05:05: Sodium Level 144, Potassium Level 4.4, Chloride Level 108H, Carbon Dioxide Level 22, Anion Gap 14, Blood Urea Nitrogen 29H, Creatinine 1.9H, Estimat Glomerular Filtration Rate , Glucose Level 108H, Calcium Level 9.0 Current Medications Medications (Trade) Dose Ordered Sig/Hanh Route PRN Reason Start Time Stop Time Status Last Admin Dose Admin Acetaminophen (Tylenol) 650 mg Q6H PRN ORAL Mild Pain/Temp > 100.5 08/16/19 03:30 09/12/19 15:22 08/20/19 01:14 Amlodipine Besylate (Norvasc) 10 mg DAILY ORAL 08/16/19 09:00 08/25/19 17:59 08/20/19 09:04 Bethanechol Chloride (Urecholine) 50 mg THREE TIMES A DAY ORAL 08/16/19 09:00 09/01/19 13:59 08/20/19 18:04 Bisacodyl (Dulcolax) 10 mg DAILYPRN PRN RECTAL Constipation 08/16/19 15:30 09/12/19 15:22 08/17/19 03:21 Clonidine HCl (Catapres TTS-3) 1 patch QWEEK TDERMAL 08/19/19 12:00 08/21/19 11:59 08/19/19 12:31 Clonidine HCl (Catapres tab) 0.2 mg Q2H PRN ORAL sbp>170 08/16/19 03:30 09/12/19 15:23 08/19/19 08:45 Dextrose/Sodium Chloride 1,000 ml @ 75 mls/hr [id number] IV 08/16/19 16:00 09/15/19 15:59 08/21/19 04:00 Finasteride (Proscar) 5 mg DAILY ORAL 08/16/19 09:00 08/27/19 08:59 08/20/19 08:58 Folic Acid (Folate) 1 mg DAILY ORAL 08/16/19 09:00 09/05/19 08:59 08/20/19 08:58 Haloperidol Lactate (Haldol) 2.5 mg Q6H PRN IM Agitation 08/16/19 06:15 09/14/19 12:14 08/19/19 20:27 Heparin Sodium (Porcine) (Heparin 5000 units/ml) 5,000 units EVERY 12 HOURS SUBQ 08/16/19 09:00 08/31/19 20:59 08/20/19 20:46 Hydralazine HCl (Apresoline) 100 mg Q8HR ORAL 08/16/19 14:00 09/15/19 13:59 08/21/19 05:41 Penicillin G Potassium 3 mu/ Sodium Chloride 55 ml @ 110 mls/hr Q4HR IVPB 08/19/19 17:00 08/29/19 16:59 08/21/19 09:17 Quetiapine Fumarate (SEROqueL) 25 mg Q6H PRN ORAL For Anxiety 08/16/19 03:30 09/12/19 15:23 Tamsulosin HCl (Flomax) 0.4 mg BID ORAL 08/16/19 09:00 08/26/19 17:59 08/20/19 18:02 Subjective ROS Limited/Unobtainable: No Allergies: Coded Allergies: No Known Allergies (Unverified , 07/21/19) Objective Last 24 Hour Vital Signs Date Time Temp Pulse Resp B/P (MAP) Pulse Ox O2 Delivery O2 Flow Rate FiO2 08/25/19 13:44 127/80 08/25/19 12:00 97.9 69 17 127/80 (96) 96 08/25/19 09:00 Room Air 08/25/19 08:24 97 118/98 08/25/19 08:00 98.3 97 20 118/98 (105) 98 08/25/19 05:25 149/80 08/25/19 04:00 98.3 84 21 149/80 (103) 96 08/25/19 00:00 97.9 75 20 145/74 (97) 96 08/24/19 21:28 134/70 08/24/19 20:02 Room Air 08/24/19 20:00 98.6 77 20 134/70 (91) 96 08/24/19 16:00 97.9 80 18 153/65 (94) 95 Intake and Output 08/24/19 08/25/19 19:00 07:00 Intake Total 720 ml 1250 ml Output Total 350 ml Balance 720 ml 900 ml Intake Oral 450 ml IV Total 220 ml 300 ml Other 500 ml 500 ml Output Urine Total 350 ml # Voids 1 Laboratory Tests 08/24/19 16:00: White Blood Count 10.4, Red Blood Count 3.04L, Hemoglobin 9.5L, Hematocrit 29.9L , Mean Corpuscular Volume 98, Mean Corpuscular Hemoglobin 31.2H, Mean Corpuscular Hemoglobin Concent 31.8L, Red Cell Distribution Width 13.5, Platelet Count 392, Mean Platelet Volume 7.3, Neutrophils (%) (Auto) 77.7H, Lymphocytes (%) (Auto) 6.8L, Monocytes (%) (Auto) 9.3, Eosinophils (%) (Auto) 3.0, Basophils (%) (Auto) 3.1H, Sodium Level 144, Potassium Level 4.4, Chloride Level 109H, Carbon Dioxide Level 23, Anion Gap 12, Blood Urea Nitrogen 32H, Creatinine 2.1H, Estimat Glomerular Filtration Rate , Glucose Level 140H, Calcium Level 8.8, Total Bilirubin 0.3, Aspartate Amino Transf (AST/SGOT) 34, Alanine Aminotransferase (ALT/SGPT) 52, Alkaline Phosphatase 73, Total Protein 7.1, Albumin 3.0L, Globulin 4.1, Albumin/Globulin Ratio 0.7L Current Medications Medications (Trade) Dose Ordered Sig/Hanh Route PRN Reason Start Time Stop Time Status Last Admin Dose Admin Acetaminophen (Tylenol) 650 mg Q6H PRN ORAL Mild Pain/Temp > 100.5 08/16/19 03:30 09/12/19 15:22 08/20/19 01:14 Amlodipine Besylate (Norvasc) 10 mg DAILY ORAL 08/16/19 09:00 08/25/19 17:59 08/25/19 08:24 Bethanechol Chloride (Urecholine) 50 mg THREE TIMES A DAY ORAL 08/16/19 09:00 09/01/19 13:59 08/25/19 13:45 Bisacodyl (Dulcolax) 10 mg DAILYPRN PRN RECTAL Constipation 08/16/19 15:30 09/12/19 15:22 08/17/19 03:21 Chlorhexidine Gluconate (Caity-Hex 2%) 1 applic DAILY@2000 TOPIC 08/21/19 20:00 09/20/19 19:59 08/24/19 21:21 Clonidine HCl (Catapres tab) 0.2 mg Q2H PRN ORAL sbp>170 08/16/19 03:30 09/12/19 15:23 08/19/19 08:45 Finasteride (Proscar) 5 mg DAILY ORAL 08/16/19 09:00 08/27/19 08:59 08/25/19 08:30 Folic Acid (Folate) 1 mg DAILY ORAL 08/16/19 09:00 09/05/19 08:59 08/25/19 08:25 Haloperidol Lactate (Haldol) 2.5 mg Q6H PRN IM Agitation 08/16/19 06:15 09/14/19 12:14 08/24/19 11:14 Heparin Sodium (Porcine) (Heparin 5000 units/ml) 5,000 units EVERY 12 HOURS SUBQ 08/16/19 09:00 08/31/19 20:59 08/25/19 08:27 Hydralazine HCl (Apresoline) 100 mg Q8HR ORAL 08/16/19 14:00 09/15/19 13:59 08/25/19 13:44 Penicillin G Potassium 3 mu/ Sodium Chloride 55 ml @ 110 mls/hr Q4HR IVPB 08/19/19 17:00 08/30/19 18:30 08/25/19 13:45 Quetiapine Fumarate (SEROqueL) 25 mg Q6H PRN ORAL For Anxiety 08/16/19 03:30 09/12/19 15:23 08/25/19 08:24 Tamsulosin HCl (Flomax) 0.4 mg BID ORAL 08/16/19 09:00 08/26/19 17:59 08/25/19 08:24 Varghese Mattson MD Aug 25, 2019 15:18
[2019-08-25 16:00] VITALS: BP 119/76
--- NOTE | 2019-08-25 16:16 | NUR ---
CASE MANAGEMENT: REVIEW 08/23/2019 SI: DEHYDRATION . BACTEREMIA . ENCEPHALOPATHY . 98.0 89 20 145/69 97% ON RA IS: IV PENICILLIN G Q4HR HEPARIN SQ BID NORVASC PO QD HYDRALAZINE PO TID PROSCAR PO QD FLOMAX PO BID CLONIDINE Q2HR/PRN URECHOLINE PO TID MED/SURG STATUS DCP: PATIENT IS FROM HOME . SEEKING SNF PLACEMENT PLAN: [facility] THIS SUNDAY D/T UNABLE TO TRANSFER TO [place] FOR [facility] LUMBAR TAP -R/O NEURO SYPHILIS -PENDING; PATIENT TOO LETHARGIC TO COMPLETE EXAM CASE MANAGEMENT: REVIEW 08/24/2019 SI: DEHYDRATION . BACTEREMIA . ENCEPHALOPATHY . RHABDOMYOLYSIS 98.1 99 20 149/70 98% ON RA NA+146 CL-110 BUN 32 CREAT 2.1 BG 140 H/H 9.5/29.9 IS: IV PENICILLIN G Q4HR HEPARIN SQ BID NORVASC PO QD HYDRALAZINE PO TID PROSCAR PO QD FLOMAX PO BID CLONIDINE Q2HR/PRN URECHOLINE PO TID MED/SURG STATUS DCP: PATIENT IS FROM HOME . SEEKING SNF PLACEMENT PLAN: [facility] THIS SUNDAY D/T UNABLE TO TRANSFER TO [place] FOR [facility] LUMBAR TAP -R/O NEURO SYPHILIS -PENDING; PATIENT TOO LETHARGIC TO COMPLETE EXAM CASE MANAGEMENT: REVIEW 08/25/2019 SI: DEHYDRATION . BACTEREMIA . ENCEPHALOPATHY . RHABDOMYOLYSIS 98.3 97 20 118/98 98% ON RA IS: IV PENICILLIN G Q4HR HEPARIN SQ BID NORVASC PO QD HYDRALAZINE PO TID PROSCAR PO QD FLOMAX PO BID CLONIDINE Q2HR/PRN URECHOLINE PO TID MED/SURG STATUS DCP: PATIENT IS FROM HOME . SEEKING SNF PLACEMENT PLAN: A/O X2 BILATERAL SOFT RESTRAINTS PLACED [facility] THIS SUNDAY D/ UNABLE TO TRANSFER TO [facility] FOR [facility] LUMBAR TAP -R/O NEURO SYPHILIS -PENDING; PATIENT TOO LETHARGIC TO COMPLETE EXAM PICC LINE PLACEMENT IN AM
--- NOTE | 2019-08-25 16:47 | Nephrology Progress Note ---
Assessment/Plan Problem List: (1) Hypertension, benign (2) Toxic metabolic encephalopathy (3) Gait abnormality (4) Rhabdomyolysis (5) JERMAINE (acute kidney injury) (6) Dehydration (7) Episode of generalized weakness (8) Bacteremia due to Staphylococcus (9) CKD (chronic kidney disease) stage 3, GFR 30-59 ml/min (10) Urinary retention Plan f/u lab, , mobilize, po intake borderline adequate,1250 po last 24 hr, repeat lab stable trend lab Subjective ROS Limited/Unobtainable: Yes Objective Objective Last 24 Hour Vital Signs Date Time Temp Pulse Resp B/P (MAP) Pulse Ox O2 Delivery O2 Flow Rate FiO2 08/25/19 16:00 98.0 86 18 119/76 (90) 95 08/25/19 13:44 127/80 08/25/19 12:00 97.9 69 17 127/80 (96) 96 08/25/19 09:00 Room Air 08/25/19 08:24 97 118/98 08/25/19 08:00 98.3 97 20 118/98 (105) 98 08/25/19 05:25 149/80 08/25/19 04:00 98.3 84 21 149/80 (103) 96 08/25/19 00:00 97.9 75 20 145/74 (97) 96 08/24/19 21:28 134/70 08/24/19 20:02 Room Air 08/24/19 20:00 98.6 77 20 134/70 (91) 96 Intake and Output 08/24/19 08/25/19 19:00 07:00 Intake Total 720 ml 1250 ml Output Total 350 ml Balance 720 ml 900 ml Intake Oral 450 ml IV Total 220 ml 300 ml Other 500 ml 500 ml Output Urine Total 350 ml # Voids 1 Height (Feet): 5 Height (Inches): 5.00 Weight (Pounds): 176 General Appearance: no apparent distress, alert, confused EENT: normal ENT inspection Neck: normal alignment Cardiovascular: normal rate Respiratory/Chest: lungs clear Abdomen: non tender, soft Neurologic: item processor II-XII grossly normal Objective dickson clear urine Arthur Bethea MD Aug 25, 2019 16:47
--- NOTE | 2019-08-25 16:54 | NUR ---
NURSE NOTES: Patient scheduled for PICC placement for today; tried several time to reach to Radiology department and no body answering the phone; Charge Nurse Mary is aware;
--- NOTE | 2019-08-25 18:40 | NUR ---
P.T. NOTES S/P: APPROACHED PATIENT'S ROOM IN THE PM. PATIENT FOUND LYING IN A SEMI-GASCA'S POSITION IN BED. PATIENT DECLINED P.T. SERVICE TODAY. RN AWARE OF PATIENT'S STATUS. WILL F/U NEXT TX. TIME AND CONT WITH P.T. PLAN. RSABADO.
--- NOTE | 2019-08-25 19:10 | NUR ---
HAND-OFF: Report given to ARELY Cho.
[2019-08-25] MEDS: Dyna-Hex 2% Top Sol 2oz TOPIC SCH (20:00)
--- NOTE | 2019-08-25 20:00 | NUR ---
NURSE NOTES: Received patient comfortably sleeping, on bilateral soft wrist restraints.
[2019-08-25 20:35] VITALS: BP 129/82
[2019-08-26 00:17] VITALS: BP 168/84
[2019-08-26] MEDS: PENICILLIN POTASSIUM MU IVPB SCH ×4 (00:40→13:23)
[2019-08-26] MEDS: NS IVPB SCH ×4 (00:40→13:23)
--- NOTE | 2019-08-26 02:45 | Progress Note ---
DATE: 08/25/2019 SUBJECTIVE: The patient is doing better. More alert. Able to answer the questions. Sleep appetite is adequate. Noncommunicative. Stronger. MENTAL STATUS EXAMINATION: The patient is alert and oriented times self and place. Mood is anxious. Affect is flat. Thought process is concrete. Thought content, no suicidal or homicidal ideation. Cognition is impaired. Insight and judgment is impaired. ASSESSMENT: Acute toxic encephalopathy, improved. PLAN: 1. We will continue current medication. 2. Provide the patient with reality orientation and supportive therapy. Nury Mandel M.D. DR: CAL JOB#: [id number] CC:
[2019-08-26 04:00] VITALS: BP 133/57
[2019-08-26] MEDS: HydrALAZINE 50mg tab ORAL SCH ×2 (06:00→13:23)
[2019-08-26 07:10] LABS: ANION GAP 12 mmol/L (5-15); BLOOD UREA NITROGEN 34 mg/dL (7-18); CALCIUM 9.2 MG/DL (8.5-10.1); CARBON DIOXIDE 24 MMOL/L (21-32); CHLORIDE 107 MMOL/L (98-107); CREATININE 2.2 MG/DL (0.55-1.30); POTASSIUM 4.5 MMOL/L (3.5-5.1); SODIUM 143 MMOL/L (136-145)
--- NOTE | 2019-08-26 07:24 | NUR ---
HAND-OFF: Report given to Jovanny Suárez RN.
--- NOTE | 2019-08-26 07:25 | NUR ---
NURSE NOTES: Report received from Jose MCGEE. Patient is currently awake and alert x 3. Patient currently in bilateral soft wrist restraints. Both extremities have good circulation, no edema, and patient is able to move fingers. Patient noted to have dickson draining clear yellow urine. 24 sunshine IV noted in left patent and intact. Patient does not appear to be in distress at this time. Restraints do not need to be re-new at this time. Will continue to follow plan of care.
[2019-08-26 08:00] VITALS: BP 182/93
--- NOTE | 2019-08-26 08:01 | Urology Progress Note ---
Assessment/Plan Assessment/Plan: 1. Urinary retention. 2. BPH history. 3. Probable neurogenic bladder. 4. Renal insufficiency acute on chronic. 5. Hematuria. dickson remains indwelling for now, replaced 08/11 secured to pt's leg hand irrigated and do PRN cont with flomax, proscar urecholine dose increased minimize seroquel on abx plan for voiding trial soon cysto later f/u on blood cx d/w nursing staff Subjective Allergies: Coded Allergies: No Known Allergies (Unverified , 07/21/19) Subjective all noted, no new complaints, dickson indwelling Objective Last 24 Hour Vital Signs Date Time Temp Pulse Resp B/P (MAP) Pulse Ox O2 Delivery O2 Flow Rate FiO2 08/26/19 06:00 133/57 08/26/19 04:00 98.2 73 20 133/57 (82) 90 08/26/19 00:17 99.0 94 20 168/84 (112) 95 08/25/19 21:00 Room Air 08/25/19 20:52 129/82 08/25/19 20:35 98.0 88 20 129/82 (98) 96 08/25/19 16:00 98.0 86 18 119/76 (90) 95 08/25/19 13:44 127/80 08/25/19 12:00 97.9 69 17 127/80 (96) 96 08/25/19 09:00 Room Air 08/25/19 08:24 97 118/98 Intake and Output 08/25/19 08/26/19 19:00 07:00 Intake Total 330 ml 765 ml Balance 330 ml 765 ml IV Total 330 ml 165 ml Other 600 ml # Voids 2 Microbiology Date/Time Source Procedure Growth Status 08/21/19 15:29 Blood Blood Culture - Preliminary NO GROWTH AFTER 4 DAYS Resulted 07/21/19 17:35 Nasal Nares - Final Complete 07/21/19 17:35 Nasal Nares - Final Complete 08/13/19 11:10 Indwelling Cath Urine Culture - Final Morganella Morg Spp Morganii Complete Current Medications Medications (Trade) Dose Ordered Sig/Hanh Route PRN Reason Start Time Stop Time Status Last Admin Dose Admin Acetaminophen (Tylenol) 650 mg Q6H PRN ORAL Mild Pain/Temp > 100.5 08/16/19 03:30 09/12/19 15:22 08/20/19 01:14 Bethanechol Chloride (Urecholine) 50 mg THREE TIMES A DAY ORAL 08/16/19 09:00 09/01/19 13:59 08/25/19 17:16 Bisacodyl (Dulcolax) 10 mg DAILYPRN PRN RECTAL Constipation 08/16/19 15:30 09/12/19 15:22 08/17/19 03:21 Chlorhexidine Gluconate (Caity-Hex 2%) 1 applic DAILY@2000 TOPIC 08/21/19 20:00 09/20/19 19:59 08/24/19 21:21 Clonidine HCl (Catapres tab) 0.2 mg Q2H PRN ORAL sbp>170 08/16/19 03:30 09/12/19 15:23 08/19/19 08:45 Finasteride (Proscar) 5 mg DAILY ORAL 08/16/19 09:00 08/27/19 08:59 08/25/19 08:30 Folic Acid (Folate) 1 mg DAILY ORAL 08/16/19 09:00 09/05/19 08:59 08/25/19 08:25 Haloperidol Lactate (Haldol) 2.5 mg Q6H PRN IM Agitation 08/16/19 06:15 09/14/19 12:14 08/24/19 11:14 Heparin Sodium (Porcine) (Heparin 5000 units/ml) 5,000 units EVERY 12 HOURS SUBQ 08/16/19 09:00 08/31/19 20:59 08/25/19 20:52 Hydralazine HCl (Apresoline) 100 mg Q8HR ORAL 08/16/19 14:00 09/15/19 13:59 08/25/19 13:44 Penicillin G Potassium 3 mu/ Sodium Chloride 55 ml @ 110 mls/hr Q4HR IVPB 08/19/19 17:00 08/30/19 18:30 08/26/19 04:35 Quetiapine Fumarate (SEROqueL) 25 mg Q6H PRN ORAL For Anxiety 08/16/19 03:30 09/12/19 15:23 08/26/19 00:45 Tamsulosin HCl (Flomax) 0.4 mg BID ORAL 08/16/19 09:00 08/26/19 17:59 08/25/19 17:16 Laboratory Tests 08/26/19 06:20: Sodium Level 143, Potassium Level 4.5, Chloride Level 107, Carbon Dioxide Level 24, Anion Gap 12, Blood Urea Nitrogen 34H, Creatinine 2.2H, Estimat Glomerular Filtration Rate , Glucose Level 122H, Calcium Level 9.2 Height (Feet): 5 Height (Inches): 5.00 Weight (Pounds): 176 Objective exam stable dickson indwelling Kali Serrano MD Aug 26, 2019 08:00
--- NOTE | 2019-08-26 08:33 | NUR ---
CASE MANAGEMENT: NOTE LEFT A MESSAGE FOR CLINICAL PHARMACY TECHNICIAN (PRIETO) (T:[phone]) TO CALL BACK TO DISCUSS PLACEMENT AGAIN.
--- NOTE | 2019-08-26 08:41 | Pulmonology Progress Note ---
Assessment/Plan Problems: (1) Rhabdomyolysis (2) JERMAINE (acute kidney injury) (3) Dehydration (4) Episode of generalized weakness (5) Weakness (6) Gait abnormality (7) Failure to thrive in adult (8) Hypertension, benign (9) Toxic metabolic encephalopathy (10) Bacteremia due to Staphylococcus (11) Positive RPR test (12) CVA (cerebral vascular accident) (13) Syphilis Assessment/Plan Assessment/Plan 1. Acute and chronic CVA, likely embolic 2. AMS, 2/2 above 3. 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 Dehydration/rhabdomyolysis/lactic acidosis - RESOLVED 5. Hyperproteinemia, possible myeloma 6. Hypertension - POORLY CONTROLLED 7. JERMAINE vs CKD, likely both 8. Obstructive uropathy 9. Generalized weakness 10. Anemia, FOBT neg PLAN: [facility] NEEDS TO BE DONE! - WILL F/U WITH CARDIOLOGY DIVISION AND NURSING PT NEEDS A PICC LINE - NEEDS TO BE PLACED ERNESTO Abx per ID: PCN G Per IR unable to do LP QT ok, Haldol 2.5 q6 PRN IM, Seroquel PO if able BP control PT/OT DVT Px: Hep SQ Dispo planning to SNF once acute issues resolved Subjective Allergies: Coded Allergies: No Known Allergies (Unverified , 07/21/19) Subjective [facility] STILL NOT DONE NAEO MS waxes and wanes No F/C/CP/SOB Objective Last 24 Hour Vital Signs Date Time Temp Pulse Resp B/P (MAP) Pulse Ox O2 Delivery O2 Flow Rate FiO2 08/26/19 06:00 133/57 08/26/19 04:00 98.2 73 20 133/57 (82) 90 08/26/19 00:17 99.0 94 20 168/84 (112) 95 08/25/19 21:00 Room Air 08/25/19 20:52 129/82 08/25/19 20:35 98.0 88 20 129/82 (98) 96 08/25/19 16:00 98.0 86 18 119/76 (90) 95 08/25/19 13:44 127/80 08/25/19 12:00 97.9 69 17 127/80 (96) 96 08/25/19 09:00 Room Air Intake and Output 08/25/19 08/26/19 18:59 06:59 Intake Total 330 ml 765 ml Balance 330 ml 765 ml IV Total 330 ml 165 ml Other 600 ml # Voids 2 General Appearance: no acute distress, cachetic HEENT: normocephalic, atraumatic, anicteric, mucous membranes moist Respiratory/Chest: chest wall non-tender, lungs clear, normal breath sounds, no respiratory distress, no accessory muscle use Cardiovascular: normal peripheral pulses, normal rate, regular rhythm Abdomen: normal bowel sounds, soft, non tender, no organomegaly, non distended , no mass Extremities: no cyanosis, no clubbing, no edema Laboratory Tests 08/26/19 06:20: Sodium Level 143, Potassium Level 4.5, Chloride Level 107, Carbon Dioxide Level 24, Anion Gap 12, Blood Urea Nitrogen 34H, Creatinine 2.2H, Estimat Glomerular Filtration Rate , Glucose Level 122H, Calcium Level 9.2 Current Medications Medications (Trade) Dose Ordered Sig/Hanh Route PRN Reason Start Time Stop Time Status Last Admin Dose Admin Acetaminophen (Tylenol) 650 mg Q6H PRN ORAL Mild Pain/Temp > 100.5 08/16/19 03:30 09/12/19 15:22 08/20/19 01:14 Bethanechol Chloride (Urecholine) 50 mg THREE TIMES A DAY ORAL 08/16/19 09:00 09/01/19 13:59 08/25/19 17:16 Bisacodyl (Dulcolax) 10 mg DAILYPRN PRN RECTAL Constipation 08/16/19 15:30 09/12/19 15:22 08/17/19 03:21 Chlorhexidine Gluconate (Caity-Hex 2%) 1 applic DAILY@2000 TOPIC 08/21/19 20:00 09/20/19 19:59 08/24/19 21:21 Clonidine HCl (Catapres tab) 0.2 mg Q2H PRN ORAL sbp>170 08/16/19 03:30 09/12/19 15:23 08/19/19 08:45 Finasteride (Proscar) 5 mg DAILY ORAL 08/16/19 09:00 08/27/19 08:59 08/25/19 08:30 Folic Acid (Folate) 1 mg DAILY ORAL 08/16/19 09:00 09/05/19 08:59 08/25/19 08:25 Haloperidol Lactate (Haldol) 2.5 mg Q6H PRN IM Agitation 08/16/19 06:15 09/14/19 12:14 08/24/19 11:14 Heparin Sodium (Porcine) (Heparin 5000 units/ml) 5,000 units EVERY 12 HOURS SUBQ 08/16/19 09:00 08/31/19 20:59 08/25/19 20:52 Hydralazine HCl (Apresoline) 100 mg Q8HR ORAL 08/16/19 14:00 09/15/19 13:59 08/25/19 13:44 Penicillin G Potassium 3 mu/ Sodium Chloride 55 ml @ 110 mls/hr Q4HR IVPB 08/19/19 17:00 08/30/19 18:30 08/26/19 04:35 Quetiapine Fumarate (SEROqueL) 25 mg Q6H PRN ORAL For Anxiety 08/16/19 03:30 09/12/19 15:23 08/26/19 00:45 Tamsulosin HCl (Flomax) 0.4 mg BID ORAL 08/16/19 09:00 08/26/19 17:59 08/25/19 17:16 Shiraz Cervantes MD Aug 26, 2019 08:41
[2019-08-26] MEDS: Bethanechol 25mg Tab ORAL SCH ×2 (09:19→12:20)
[2019-08-26] MEDS: Tamsulosin 0.4mg cap ORAL SCH (09:19)
[2019-08-26] MEDS: Heparin 5000 units/ml inj SUBQ SCH (09:21)
--- NOTE | 2019-08-26 10:24 | Cardiac Electrophysiology PN ---
Assessment/Plan Status Narrative MRI Brain: Multiple foci of restricted diffusion, as described. Most of these were evident on prior study of 08/05/2019, indicating that these are residual subacute infarcts. However, there are a few new areas as detailed above, indicating lacunar infarcts that have occurred since the previous study Assessment/Plan 1. 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 EF 60%. Off anticoagulation to prevent hemorrhagic conversion of CVA until cleared by Neurology. Remained in SR when was on tele. Awaiting transfer to [facility] for [facility]. Also on schedule for [facility] at [place] after PICC line and can be done only on Tuesdays per Cardiology 2. Hypertension. On Hydralazine 100 q8 and p.r.n. clonidine 3. Benign prostatic hypertrophy on Flomax and Proscar. 4. Dementia, on Seroquel per Dr. Mandel. 5. Acute rhabdomyolysis. 6. Staph bacteremia.On Abx 7. Stage 3 chronic kidney disease.Cr 1.9 8. AMS. ?due to CVA. FU Dr Sarah CARTER RN and Dr Cervantes Subjective Subjective Alert in NAD. Awaiting transfer to [facility] for [facility]. Also on schedule for [facility] at [place] after PICC line Objective Last 24 Hour Vital Signs Date Time Temp Pulse Resp B/P (MAP) Pulse Ox O2 Delivery O2 Flow Rate FiO2 08/26/19 06:00 133/57 08/26/19 04:00 98.2 73 20 133/57 (82) 90 08/26/19 00:17 99.0 94 20 168/84 (112) 95 08/25/19 21:00 Room Air 08/25/19 20:52 129/82 08/25/19 20:35 98.0 88 20 129/82 (98) 96 08/25/19 16:00 98.0 86 18 119/76 (90) 95 08/25/19 13:44 127/80 08/25/19 12:00 97.9 69 17 127/80 (96) 96 Intake and Output 08/25/19 08/26/19 19:00 07:00 Intake Total 330 ml 765 ml Balance 330 ml 765 ml IV Total 330 ml 165 ml Other 600 ml # Voids 2 Laboratory Tests Test 08/26/19 06:20 Sodium Level 143 MMOL/L (136-145) Potassium Level 4.5 MMOL/L (3.5-5.1) Chloride Level 107 MMOL/L (98-107) Carbon Dioxide Level 24 MMOL/L (21-32) Anion Gap 12 mmol/L (5-15) Blood Urea Nitrogen 34 mg/dL (7-18) H Creatinine 2.2 MG/DL (0.55-1.30) H Estimat Glomerular Filtration Rate mL/min (>60) Glucose Level 122 MG/DL (74-106) H Calcium Level 9.2 MG/DL (8.5-10.1) Objective HEAD AND NECK: No JVD. LUNGS: Clear. CARDIOVASCULAR: Regular S1 and S2 with no gallop or murmur. ABDOMEN: Soft and nontender. EXTREMITIES: No pitting edema. Lance Nichols MD Aug 26, 2019 10:23
--- NOTE | 2019-08-26 10:28 | NUR ---
NURSE NOTES: Called Ramesh from cardiology to clarify why patient has not had Echo TE done yet. Ramesh stated that patient needs consent with two signatures from two different MD since patient is unable to sign due to mental status. Ramesh also informed Jovanny MCGEE that patient needs PICC line for procedure. Jovanny MCGEE spoke with Jin from Radiology. Jin from radiology stated that 20 sunshine IV in left AC should be sufficient for procedure. Jin from radiology said he would clarify with Ramesh from cardiology. Jovanny MCGEE is awaiting a further update.
--- NOTE | 2019-08-26 10:33 | NUR ---
NURSE NOTES: Per Edward from radiology 20 sunshine IV is sufficient for procedure.
[2019-08-26] MEDS: cloNIDine 0.2mg Tab ORAL PRN ×3 (10:44→16:16)
[2019-08-26 12:00] VITALS: BP 160/80
--- NOTE | 2019-08-26 12:03 | NUR ---
RD ASSESSMENT & RECOMMENDATIONS SEE CARE ACTIVITY FOR COMPLETE ASSESSMENT DAILY ESTIMATED NEEDS: Needs based on cardiac, 69kg abw 25-30 kcals/kg 9231-5948 total kcals 1-1.2 g protein/kg 69-83 g total protein 25-30 mL/kg 7038-5520 total fluid mLs NUTRITION DIAGNOSIS: Altered nutrition related lab values R/T dehydration, HTN, clinical condition as evidenced by elev creat (1.9), elev T bili (1.1 -> wnl), elev BPs (220/110 -> now improved), low K (3.3 -> wnl), elev total creatine kinase (2240 ->440-> now wnl). CURRENT DIET:REGULAR, soft easy chew PO DIET RECOMMENDATIONS: LOW NA/ texture as tolerated ADDITIONAL RECOMMENDATIONS: * Calibrated bedscale wt * Monitor lytes, replete as needed * Monitor for bowel movement -> consider bowel regimen * Monitor PO intake- appears improved * Ensure Enlive BID w/ meals w/ variable intake * MVI x 1 as supplement
--- NOTE | 2019-08-26 13:54 | Infectious Diseases Prog Note ---
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 TPPA serum is pending . screening for HIV is negative . 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 repeated blood cultures so far have been negative, with negative JOHN, and RF screening , recommend LESA to better evaluate his valves and rule out the source . doesn't meet criteria for infectious endocarditis. on Penicillin to treat for possible neurosyphillis (3) CKD (chronic kidney disease) stage 3, GFR 30-59 ml/min Assessment & Plan: avoid nephrotoxics, close monitoring of renal function, follow up with nephrology (4) Failure to thrive in adult Assessment & Plan: etiology? dementia possibly, screening for HIV is negative , may need placement (5) Encephalopathy acute Assessment & Plan: improving now, suspect recurrent CVA, VS meds side effect , VS metabolic. already on antibiotics to cover for possible neurosyphillis . neurology is following (6) Urinary retention Assessment & Plan: S/P dickson catheter placement , urology is following Subjective Constitutional: Reports: no symptoms HEENT: Reports: no symptoms Respiratory: Reports: no symptoms Breasts: Reports: no symptoms Cardiovascular: Reports: no symptoms Gastrointestinal/Abdominal: Reports: no symptoms Genitourinary: Reports: no symptoms Neurologic: Reports: no symptoms Psychiatric: Reports: no symptoms Skin: Reports: no symptoms Endocrine: Reports: no symptoms Hematologic: Reports: no symptoms Musculoskeletal: Reports: no symptoms Allergies: Coded Allergies: No Known Allergies (Unverified , 07/21/19) Subjective He was lying in bed comfortable, awake and responsive to verbal commands , no cough or SOB, no nausea or vomiting , no diarrhea , had Dickson catheter placed in on 08/11/19. Objective Vital Signs Last 24 Hour Vital Signs Date Time Temp Pulse Resp B/P (MAP) Pulse Ox O2 Delivery O2 Flow Rate FiO2 08/26/19 13:23 170/80 08/26/19 13:22 170/80 08/26/19 12:00 97.8 86 19 160/80 (106) 97 08/26/19 10:44 182/93 08/26/19 09:00 Room Air 08/26/19 08:00 98.2 80 17 182/93 (122) 96 08/26/19 06:00 133/57 08/26/19 04:00 98.2 73 20 133/57 (82) 90 08/26/19 00:17 99.0 94 20 168/84 (112) 95 08/25/19 21:00 Room Air 08/25/19 20:52 129/82 08/25/19 20:35 98.0 88 20 129/82 (98) 96 08/25/19 16:00 98.0 86 18 119/76 (90) 95 Height (Feet): 5 Height (Inches): 5.00 Weight (Pounds): 176 General Appearance: WD/WN, no acute distress HEENT: normocephalic, atraumatic, anicteric, mucous membranes moist, PERRL Respiratory/Chest: chest wall non-tender, lungs clear, normal breath sounds, no respiratory distress, no accessory muscle use Cardiovascular: normal peripheral pulses, normal rate, regular rhythm, no gallop/murmur, no JVD Abdomen: normal bowel sounds, soft, non tender, no organomegaly, non distended , no mass, no scars Genitourinary: normal external genitalia Extremities: no cyanosis, no clubbing Skin: no rash, no lesions, no ulcers Neurologic/Psychiatric: [employer] program coordinator II-XII grossly normal, alert, responsive Lymphatic: no neck adenopathy, no groin adenopathy Musculoskeletal: normal muscle bulk, no effusion Laboratory Tests Test 08/26/19 06:20 Sodium Level 143 MMOL/L (136-145) Potassium Level 4.5 MMOL/L (3.5-5.1) Chloride Level 107 MMOL/L (98-107) Carbon Dioxide Level 24 MMOL/L (21-32) Anion Gap 12 mmol/L (5-15) Blood Urea Nitrogen 34 mg/dL (7-18) H Creatinine 2.2 MG/DL (0.55-1.30) H Estimat Glomerular Filtration Rate mL/min (>60) Glucose Level 122 MG/DL (74-106) H Calcium Level 9.2 MG/DL (8.5-10.1) Current Medications Medications (Trade) Dose Ordered Sig/Hanh Route PRN Reason Start Time Stop Time Status Last Admin Dose Admin Acetaminophen (Tylenol) 650 mg Q6H PRN ORAL Mild Pain/Temp > 100.5 08/16/19 03:30 09/12/19 15:22 08/20/19 01:14 Bethanechol Chloride (Urecholine) 50 mg THREE TIMES A DAY ORAL 08/16/19 09:00 09/01/19 13:59 08/26/19 12:20 Bisacodyl (Dulcolax) 10 mg DAILYPRN PRN RECTAL Constipation 08/16/19 15:30 09/12/19 15:22 08/17/19 03:21 Chlorhexidine Gluconate (Caity-Hex 2%) 1 applic DAILY@2000 TOPIC 08/21/19 20:00 09/20/19 19:59 08/24/19 21:21 Clonidine HCl (Catapres tab) 0.2 mg Q2H PRN ORAL sbp>170 08/16/19 03:30 09/12/19 15:23 08/26/19 13:22 Finasteride (Proscar) 5 mg DAILY ORAL 08/16/19 09:00 08/27/19 08:59 08/26/19 09:19 Folic Acid (Folate) 1 mg DAILY ORAL 08/16/19 09:00 09/05/19 08:59 08/26/19 09:19 Haloperidol Lactate (Haldol) 2.5 mg Q6H PRN IM Agitation 08/16/19 06:15 09/14/19 12:14 08/24/19 11:14 Heparin Sodium (Porcine) (Heparin 5000 units/ml) 5,000 units EVERY 12 HOURS SUBQ 08/16/19 09:00 08/31/19 20:59 08/26/19 09:21 Hydralazine HCl (Apresoline) 100 mg Q8HR ORAL 08/16/19 14:00 09/15/19 13:59 08/26/19 13:23 Penicillin G Potassium 3 mu/ Sodium Chloride 55 ml @ 110 mls/hr Q4HR IVPB 08/19/19 17:00 08/30/19 18:30 08/26/19 13:23 Quetiapine Fumarate (SEROqueL) 25 mg Q6H PRN ORAL For Anxiety 08/16/19 03:30 09/12/19 15:23 08/26/19 00:45 Tamsulosin HCl (Flomax) 0.4 mg BID ORAL 08/16/19 09:00 08/26/19 17:59 08/26/19 09:19 Anastasia Lion M.D. Aug 26, 2019 13:54
--- NOTE | 2019-08-26 13:57 | NUR ---
DISCHARGE PLANNED: PATIENT IS TO TRANSFER WITHIN NETWORK SPOKE TO HCP (DON) T: [phone] PATIENT IS TRANSFER TO [facility] T: [phone] EXT [id number] FOR NURSE TO NURSE REPORT ROOM# [id number] AMBULANCE PICKUP PATIENT @[phone]
[2019-08-26 14:39] VITALS: BP 106/50
--- NOTE | 2019-08-26 14:42 | NUR ---
NURSE NOTES: Was informed by case management that patient is to be discharged to [facility]. Upon beginning discharge packet Jovanny MCGEE contacted primary MD Cervantes. Doctor Helen unaware of discharge plan. Discharge currently on hold, waiting for further update from Michelle in case management.
--- NOTE | 2019-08-26 16:00 | NUR ---
NURSE NOTES: Patient to be transferred to [facility] for further care. Report given to Delmy MCGEE. Per Delmy IV line and indwelling Walsh are okay to be kept in place due to patient being difficult to obtain IV access. Delmy was informed have continuous monitoring needed for patients blood pressure. Informed of most recent dose of clonidine given.Delmy was informed of history of patient, Delmy did not have any further questions for Jovanny MCGEE at end of report. Jovanny MCGEE gave report to ambulance staff. No further questions. Patient safely transferred to [facility]. Patient awake and alert x 2 and in stable condition. Care for patient to end at this time.
[2019-08-26 16:16] VITALS: BP 171/80
[2019-08-26] MEDS ORDERED: Tubing IV Secondary IV ONE (16:43)
[2019-08-26] MEDS ORDERED: NS 275ml ONE (16:43)
--- NOTE | 2019-08-28 11:53 | Discharge Summary ---
Discharge Summary Discharge Summary _ DATE OF ADMISSION: 07/21/2019 DATE OF DISCHARGE: 08/26/2019 DISCHARGED BY: Dr. Cervantes REASON FOR ADMISSION: 79 years old male was brought to emergency room by paramedics when his neighbors called 911. According to patient he was lying down on the floor and was unable to get up for the past 4 days. He did not have a phone to call anyone. Patient reported generalized weakness . No chest pain , no difficulty breathing , no nausea or vomiting. Patient did not eat or drink anything for 4 days. Laboratory work-up revealed elevated BUN and creatinine. Elevated CPK. Total protein was elevated. Urinalysis was positive for ketones and protein, no evidence of UTI. Platelet count stable, hemoglobin 14.3 . Lactate elevated but improved with IV hydration. Albumin 4.1 .TSH within normal limits . Patient admitted for further management. CONSULTANTS: psychiatry adult physician Dr. Jurado neurologist Dr. Smith ID specialist internal sales engineer Dr. Bethea urology Dr. Serrano psychiatrist [facility] COURSE: Patient admitted and started on IV hydration. Serum protein electrophoresis was unremarkable. Blood culture initially showed Staph epidermidis 1 out of 4 . Patient remained afebrile , no leukocytosis. Urine culture was negative. CT of the head revealed no acute intracranial bleeding , mass effect or edema , suspected old lacunar infarct. Moderate atrophy of the brain noted along with evidence of chronic small vessel disease involving white matter tracts. MRI of the brain revealed multiple small acute infarcts scattered throughout the cerebral hemispheres, basal ganglia and left cerebellum. Presence of this in multiple vascular territories indicated emboli of cardiogenic origin. Multiple old lacunar infarct also demonstrated. Extensive periventricular deep white matter chronic ischemic changes. Neurologist followed. EEG awake and drowsy was normal . Per neurologist, patient history, neurological examination , laboratory data and imaging studies were most consistent with multiply showers of emboli to the brain over multiply different times, leading to significant neurological dysfunction. Patient was off anticoagulation to prevent hemorrhagic conversion of CVA until cleared by neurologist. Echocardiogram revealed preserved ejection fraction. Patient remained in sinus rhythm. ID consult was requested due to positive RPR. HIV test was negative. FTA-ABS came back reactive. Per ID specialist, patient possibly had neurosyphilis. Patient was treated with PCN -G for 10 days for possible neurosyphillis. Infectious disease specialist recommended to perform lumbar puncture , however it was not done , since per radiologist patient was altered. JOHN screen was negative. Rheumatoid factor was within normal limits. Repeated blood cultures were negative. ID specialist recommended LESA to better evaluate the cardiac valves to rule out the source. Patient did not meet criteria for infectious endocarditis, but was on penicillin for possible neurosyphilis. Patient undergone another MRI of the brain , which revealed multiply foci of restricted diffusion with most of these evident on the prior study on 08/05 , indicating that these were residual subacute infarcts. However there were few new areas indicating lacunar infarct , likely acute , new since the previous study. Patient was waiting for transfer to [facility] for LESA. Patient was also scheduled for LESA at [place] after PICC line placement which only could be done on Sunday as per cardiology. Renal parameters and electrolytes were closely monitored, electrolytes corrected as needed. Creatinine remained at the baseline. Business Attorney recommended avoid nephrotoxics. CK trended down to 114. Urologist followed for urinary retention and BPH. Walsh was placed and remained indwelling ; was replaced on . Renal ultrasound demonstrated no hydronephrosis. 46 mL calculated retained urine volume , despite presence of Walsh catheter. Flomax and Proscar continued. Urecholine dose increased. Urologist recommended to plan for voiding trial soon and consider cystoscopy later. DVT prophylaxis with heparin provided. Fall precaution maintained . Patient was working with physical therapy. Hemoglobin and hematocrit were closely monitored with goal to keep hemoglobin above 7. Stool for occult blood was negative. Hemoglobin and hematocrit remained at the baseline , and prior to discharge hemoglobin 9.5 , hematocrit 29.9. Reality orientation and supportive therapy provided. Transfer was arranged to [facility] for LESA within network. Patient was stable for transfer. 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 DISCHARGE INSTRUCTIONS: Patient was transferred to [facility] for further management as per [facility]. I have been assigned to dictate discharge summary for this account. I was not involved in the patient's management. Tuyet Jacobsen NP Aug 28, 2019 11:53
--- NOTE | 2019-08-28 15:23 | NUR ---
*-* INSURANCE *-* DISCHARGE SUMMARY HAS BEEN FAXED TO: [facility] OPAL:[employer] P: [phone] F: [phone]
== END 2019-08-26 16:44 | disposition short-term general hospital (02) | DRG 682 ==
LOC: EDBD 03:34 → EMR 03:49 → EDBEDREQ 06:08 → 4E 06:35 → 2E 08-06 08:29 → SDSOVERFLO 08-07 13:04 → 2E 08-07 13:06 → 3E 08-12 05:03 → 2E 08-13 15:17 → 4E 08-16 02:33
DX: N17.9 Acute kidney failure, unspecified (principal); G92 Toxic encephalopathy; I63.40 Cerebral infarction due to embolism of unspecified cerebral artery; A52.3 Neurosyphilis, unspecified; M62.82 Rhabdomyolysis; R78.81 Bacteremia; E87.2 Acidosis; F03.91 Unspecified dementia, unspecified severity, with behavioral disturbance; N39.0 Urinary tract infection, site not specified; N18.4 Chronic kidney disease, stage 4 (severe); E86.0 Dehydration; I12.9 Hypertensive chronic kidney disease with stage 1 through stage 4 chronic kidney disease, or unspecified chronic kidney disease; N40.1 Benign prostatic hyperplasia with lower urinary tract symptoms; R33.8 Other retention of urine; N31.9 Neuromuscular dysfunction of bladder, unspecified; R62.7 Adult failure to thrive; Z68.29 Body mass index [BMI] 29.0-29.9, adult; R31.9 Hematuria, unspecified; I48.91 Unspecified atrial fibrillation; F32.9 Major depressive disorder, single episode, unspecified; R26.0 Ataxic gait; G31.84 Mild cognitive impairment of uncertain or unknown etiology
CPT/HCPCS: 36415; 36600; 70450; 70551; 71045; 76770; 80048; 80053; 80061; 81001; 81003; 82140; 82248; 82270; 82306; 82550; 82553; 82570; 82607; 82746; 82803; 82962; 83036; 83540; 83550; 83605; 83690; 83735; 83880; 84100; 84165; 84300; 84439; 84443; 84481; 84484; 85025; 85044; 85610; 85651; 85730; 86039; 86431; 86592; 86703; 86710; 86780; 87040; 87086; 87181; 93005; 93306; 95819; 96361; 96374; 96375; 96376; 99285; J7030; J8499